=== PATIENT | female | born 1965 | race Caucasian/White ===

== ENCOUNTER 2017-05-28 16:02 | Emergency (ER) | payer OTHER ==
[2017-05-28 16:52] LABS: Bilirubin Small (Negative); Blood, Urine Negative (Negative); Glucose, Urine (Dipstick) Negative (Negative); Ketone, Urine Negative (Negative); Nitrite Negative (Negative); Protein, Urine (Dipstick) Negative (Neg-Trace)
[2017-05-28 16:53] LABS: Bacteria/HPF None Seen HPF (None Seen); Hyaline Casts/LPF 4-6 HYALINE CAST LPF (0-3 Hyaline); RBC/HPF 0-3 HPF (0-3); Squamous Epithelial 0-3 HPF (0-3); WBC/HPF 0-3 HPF (0-3)
[2017-05-28 16:56] LABS: Hematocrit 43.4 % (36.0-47.0); Mean Platelet Volume 10.6 fL (7.4-10.4); Red Blood Cell (RBC) Count 5.48 mill/uL (4.20-5.40)
[2017-05-28 16:58] LABS: CK (CPK) 30 U/L (29-168); Salicylate Less than 8.0 mg/dL (15.0-30.0)
[2017-05-28 16:59] LABS: ALT (SGPT) 9 U/L (8-55); AST (SGOT) 16 U/L (5-34); Alkaline Phosphatase 63 U/L (40-150); Anion Gap 15 mmol/L (10-20); BUN (Urea Nitrogen) 17 mg/dL (9.8-20.1); Bilirubin, Total 0.9 mg/dL (0.2-1.2); Calc. Creatinine Clearance 0 mL/min (70-130); Calcium 9.6 mg/dL (7.8-10.44); Carbon Dioxide 33 mmol/L (22-29); Chloride 92 mmol/L (98-107); Estimated GFR-MDRD 71; Globulin 3.3 g/dL (2.4-3.5)
[2017-05-28 17:01] LABS: Amphetamine Not Detected (NotDetected); Methadone Not Detected (NotDetected); Methamphetamine Not Detected (NotDetected)
[2017-05-28 17:13] LABS: #Basophils 0.1 thou/uL (0.0-0.2); #Eosinphils 0.2 thou/uL (0.0-0.7); #Lymphocytes 3.7 thou/uL (1.20-3.40); #Monocytes 0.6 thou/uL (0.11-0.59); #Neutrophils 4.4 thou/uL (1.40-6.50); %Basophils 1.3 % (0.0-1.0); %Eosinophils 2.7 % (0.0-10.0); %Lymphocytes 40.5 % (21.0-51.0); %Monocytes 6.6 % (0.0-10.0); Anisocytosis SLIGHT = 6-15 cells (100X) (0-5/hpf); Hypochromia SLIGHT = 6-15 cells (100X) (0-5/hpf)
[2017-05-28] MEDS ORDERED: diphenhydrAMINE HCl 50 MG/ML 1 ML VIAL ONE (18:07)
[2017-05-28 21:48] LABS: ALT (SGPT) 8 U/L (8-55); AST (SGOT) 11 U/L (5-34); Alkaline Phosphatase 53 U/L (40-150); Anion Gap 11 mmol/L (10-20); BUN (Urea Nitrogen) 16 mg/dL (9.8-20.1); Bilirubin, Total 0.6 mg/dL (0.2-1.2); Calc. Creatinine Clearance 0 mL/min (70-130); Calcium 7.8 mg/dL (7.8-10.44); Carbon Dioxide 30 mmol/L (22-29); Chloride 99 mmol/L (98-107); Estimated GFR-MDRD 70; Globulin 2.7 g/dL (2.4-3.5); Protein, Total 5.9 g/dL (6.0-8.3)
[2017-05-29] MEDS ORDERED: Bumetanide 1 MG TAB PO SCH (07:30)
[2017-05-29] MEDS ORDERED: predniSONE 20 MG TAB PO SCH (08:00)
[2017-05-29] MEDS ORDERED: Metolazone 2.5 MG TAB PO SCH (08:30)
[2017-05-29] MEDS ORDERED: Gabapentin 300 MG CAP PO SCH (09:00)
[2017-05-29] MEDS ORDERED: Simvastatin 5 MG TAB PO SCH (21:00)
[2017-05-29] MEDS ORDERED: Acetaminophen 325 MG TAB ONE (21:25)
[2017-05-30] MEDS ORDERED: Acetaminophen 500 MG TAB ONE (05:31)
[2017-05-30] MEDS ORDERED: Bumetanide 1 MG TAB PO SCH (18:30)
[2017-05-30] MEDS ORDERED: Pseudoephedrine HCl 30 MG TAB PO SCH (20:15)
[2017-05-30] MEDS ORDERED: Loratadine 10 MG TAB PO SCH (20:15)
[2017-05-31] MEDS ORDERED: Ibuprofen 200 MG TAB ONE (00:18)
[2017-05-31] MEDS ORDERED: Potassium Chloride 20 MEQ TAB ONE ×3 (01:06→12:46)
[2017-05-31] MEDS ORDERED: Dextrose 5% in Water 1,000 ML IV PRN (03:46)
[2017-05-31] MEDS ORDERED: Insulin Regular 300 UNITS/3 ML VIAL SC PRN (03:46)
[2017-05-31] MEDS ORDERED: Dextrose 50% Abboject 50 ML SYRINGE IVP PRN (03:46)
[2017-05-31 03:53] LABS: ALT (SGPT) 11 U/L (8-55); AST (SGOT) 18 U/L (5-34); Alkaline Phosphatase 62 U/L (40-150); BUN (Urea Nitrogen) 20 mg/dL (9.8-20.1); Bilirubin, Total 1.1 mg/dL (0.2-1.2); Calc. Creatinine Clearance 0 mL/min (70-130); Calcium 9.7 mg/dL (7.8-10.44); Estimated GFR-MDRD 67; Globulin 3.2 g/dL (2.4-3.5); Protein, Total 6.8 g/dL (6.0-8.3)
[2017-05-31 04:02] LABS: Anion Gap 18 mmol/L (10-20); Carbon Dioxide 37 mmol/L (22-29); Chloride 86 mmol/L (98-107)
[2017-05-31 04:17] LABS: Hematocrit 45.4 % (36.0-47.0); Mean Platelet Volume 10.8 fL (7.4-10.4); Red Blood Cell (RBC) Count 5.78 mill/uL (4.20-5.40); White Blood Cell (WBC) Count 10.6 thou/uL (4.8-10.8)
[2017-05-31 04:24] LABS: #Basophils 0.1 thou/uL (0.0-0.2); #Eosinphils 0.3 thou/uL (0.0-0.7); #Neutrophils 5.2 thou/uL (1.40-6.50); %Eosinophils 2.8 % (0.0-10.0); %Lymphocytes 38.2 % (21.0-51.0); %Monocytes 9.5 % (0.0-10.0); Anisocytosis SLIGHT = 6-15 cells (100X) (0-5/hpf); Hypochromia SLIGHT = 6-15 cells (100X) (0-5/hpf)
[2017-05-31] MEDS ORDERED: Bacitracin Zinc 1 Packet ONE (09:43)
[2017-05-31] MEDS ORDERED: Sulfameth/Trimethoprim DS 800-160mg TAB ONE ×2 (09:43→20:14)
[2017-05-31 11:54] LABS: ALT (SGPT) 12 U/L (8-55); AST (SGOT) 24 U/L (5-34); Alkaline Phosphatase 64 U/L (40-150); BUN (Urea Nitrogen) 24 mg/dL (9.8-20.1); Bilirubin, Total 1.1 mg/dL (0.2-1.2); Calc. Creatinine Clearance 0 mL/min (70-130); Estimated GFR-MDRD 46; Globulin 3.5 g/dL (2.4-3.5); Protein, Total 7.1 g/dL (6.0-8.3)
[2017-05-31 12:03] LABS: Anion Gap 21 mmol/L (10-20); Carbon Dioxide 37 mmol/L (22-29); Chloride 84 mmol/L (98-107)
[2017-05-31] MEDS ORDERED: Insulin Regular 300 UNITS/3 ML VIAL ONE ×2 (12:46→20:14)
[2017-05-31] MEDS ORDERED: Magnesium Sulfate 2 GM/100 ML BAG ONE (20:21)
[2017-06-01] MEDS ORDERED: Acetaminophen 500 MG TAB ONE (01:36)
[2017-06-01] MEDS ORDERED: Potassium Chloride 20 MEQ TAB ONE (02:34)
[2017-06-01] MEDS ORDERED: Ibuprofen 200 MG TAB ONE (04:02)
--- NOTE | 2017-06-04 13:17 | EKG ---
Test Reason : Blood Pressure : / mmHG Vent. Rate : 102 BPM Atrial Rate : 102 BPM P-R Int : 152 ms QRS Dur : 108 ms QT Int : 372 ms P-R-T Axes : 057 165 -24 degrees QTc Int : 484 ms Sinus tachycardia with occasional Premature ventricular complexes Right axis deviation Low voltage QRS Inferior infarct , age undetermined Cannot rule out Anteroseptal infarct , age undetermined Abnormal ECG Confirmed by DAYTON MCINTRYE D.O. ([id number]), editor producer FATOUMATA BENITEZ ([id number]) on 06/04/2017 1:16:41 PM Referred By: Confirmed By:DAYTON MCINTYRE D.O.
== END 2017-06-01 10:30 | disposition home or self-care (01) ==
LOC: ERS 16:02
DX: T40.2X2A Poisoning by other opioids, intentional self-harm, initial encounter (principal); D86.9 Sarcoidosis, unspecified; E11.9 Type 2 diabetes mellitus without complications; F43.9 Reaction to severe stress, unspecified; F32.9 Major depressive disorder, single episode, unspecified; F17.210 Nicotine dependence, cigarettes, uncomplicated; J44.9 Chronic obstructive pulmonary disease, unspecified; I10 Essential (primary) hypertension; Z79.84 Long term (current) use of oral hypoglycemic drugs; Z79.52 Long term (current) use of systemic steroids; Z79.899 Other long term (current) drug therapy
CPT/HCPCS: 36415; 36416; 51701; 80053; 80306; 80307; 81003; 81015; 82550; 83735; 84443; 85025; 93005; 94760; 96360; 96361; 96365; 96372; 96375; J1200; J1815; J3475; J7506

== ENCOUNTER 2017-07-25 14:29 | Outpatient (CLI) | payer OTHER ==
[2017-07-25 16:03] LABS: Hematocrit 38.4 % (36.0-47.0); Mean Platelet Volume 6.8 fL (7.4-10.4); Red Blood Cell (RBC) Count 5.12 mill/uL (4.20-5.40)
[2017-07-25 16:20] LABS: ALT (SGPT) Less than 7 U/L (8-55); AST (SGOT) 14 U/L (5-34); Alkaline Phosphatase 69 U/L (40-150); Anion Gap 16 mmol/L (10-20); BUN (Urea Nitrogen) 16 mg/dL (9.8-20.1); Bilirubin, Total 2.2 mg/dL (0.2-1.2); Calc. Creatinine Clearance 0 mL/min (70-130); Calcium 9.4 mg/dL (7.8-10.44); Carbon Dioxide 34 mmol/L (22-29); Chloride 92 mmol/L (98-107); Estimated GFR-MDRD 65; Globulin 3.2 g/dL (2.4-3.5); Protein, Total 6.8 g/dL (6.0-8.3)
== END 2017-07-25 14:30 | disposition home or self-care (01) ==
LOC: LABBT 14:29
PROVIDERS: ATTEND Internal Medicine Cardiovascular Disease
DX: Z01.818 Encounter for other preprocedural examination (principal); I70.25 Atherosclerosis of native arteries of other extremities with ulceration
CPT/HCPCS: 80053; 85027; 85610; 85730; 93005; 93010

== ENCOUNTER 2017-07-26 06:32 | Day surgery (SDC) | payer OTHER ==
[2017-07-25 14:59] VITALS: BMI 30.9
[~2017-07-26 06:32] MED LIST: Iopamidol 370 76% 100 ML VIAL ONE
[2017-07-26] MEDS ORDERED: Heparin 1000 UNIT/NS 500ML(OR) 500 ML ONE ×2 (06:41→07:03)
--- NOTE | 2017-07-26 08:20 | HP ---
CHIEF COMPLAINT: Bilateral leg pain. HISTORY OF PRESENT ILLNESS: Ms. Valdovinos is an unfortunate 52-year-old woman who continues to smoke. She has had intervention to the bilateral iliac arteries by Dr. Yousif Aponte. She continues to hav e pain noted bilaterally at rest. She has been treated medically and had been counseled on several o ccasions to not smoke. She unfortunately continues to smoke. She now called the office stating she has continued to have symptoms. She was last seen in 05/20/2017. Please see note dated 05/20/2017 for full previous history. PHYSICAL EXAMINATION: VITAL SIGNS: Blood pressure 100/62, pulse 71, temperature afebrile. GENERAL: Patient is a pleasant female who is in no acute distress. The patient appears older than he r stated age. NEUROLOGIC: The patient is alert and oriented times 3 with no focal neurologic deficits. HEENT: Sclerae without icterus. Mouth has moist mucous membranes with normal pallor. NECK: No JVD. Carotid upstroke brisk. No bruits bilaterally. LUNGS: Clear to auscultation with unlabored respirations. BACK: No scoliosis or kyphosis. CARDIAC: Regular rate and rhythm with normal S1 and S2. No S3 or S4 noted. No significant rubs, mur murs, thrills, or gallops noted throughout the precordium. PMI is not displaced. There is no parast ernal heave. ABDOMEN: Soft, nontender, nondistended. No peritoneal signs present. No hepatosplenomegaly. No abn ormal striae. EXTREMITIES: Decreased pulses noted in the femoral region bilaterally. SKIN: No gross abnormalities. IMPRESSION: 1. Severe peripheral vascular disease. 2. Claudication. 3. Tobacco abuse. RECOMMENDATIONS: I discussed the case in full detail with Ms. Valdovinos. The risks included, but are not limited to , stroke, OR, need for emergency surgery, loss of limb, bleeding and infection as a reaction to medication. I also counseled her on the need to not smoke. I did discuss with Dr. Ivonne Aponte. He states at her last intervention her vessels appeared small. Based on her arterial a ngio arterial duplex she likely has occlusion of the stents bilaterally. Further recommendations pen ding the above.
--- NOTE | 2017-07-26 09:40 | OP ---
PREPROCEDURE DIAGNOSIS: Severe claudication. POSTPROCEDURE DIAGNOSIS: Severe peripheral vascular disease. PROCEDURES: 1. Aortogram. 2. Unilateral aortofemoral runoff. COMPLICATIONS: None. ESTIMATED BLOOD LOSS: Less than 10 mL. PROCEDURE IN DETAIL: The patient was draped and prepped in sterile fashion. Accessing the right fem oral artery under ultrasound guidance. The bifurcation was not well visualized. There was significa nt calcium present. Access was obtained in the SFA. Contra catheter was used. I did not cross into contralateral segment due to stents noted at the distal aorta bilaterally. FINDINGS: A small aneurysm present in the distal aorta. Right lower extremity - there appears to be a 50% to 60% stenosis of the previously stented region. There is no significant gradient from the aorta to the 5-Turkmen sheath. There was 100% occlusion of the SFA in the mere ostial portion to the mid SFA. There is reconstitution noted in the eyi-er-ahtrd l SFA. There is 90% stenosis with heavy calcification noted just above the articulation of the knee within the popliteal artery. There is 2-vessel runoff to the foot. Left lower extremity - there is 50% to 60% stenosis of the left common iliac artery. Again, gradient could not be performed. The common femoral artery appeared patent. The SFA appears patent. The po pliteal artery in the proximal region is 100% occluded in a short region. There is 2-vessel runoff t o the foot via the anterior tibial artery and peroneal artery. Options were limited. Did contemplate access in the popliteal artery in a staged fashion. Unfortuna tely, the transition for access appears to be quite difficult. May consider a turndown for surgery. Access in the anterior tibial artery was also contemplated, but the anterior tibial artery vessels a ppear very small and cannot place a 5-Turkmen sheath given the size of the vessel.
[2017-07-26] MEDS ORDERED: Morphine 4 MG/ML VIAL ONE (10:41)
== END 2017-07-26 14:25 | disposition home or self-care (01) ==
LOC: CCL 06:32
PROVIDERS: ATTEND Internal Medicine Cardiovascular Disease
PROC: B41D1ZZ Fluoroscopy of Aorta and Bilateral Lower Extremity Arteries using Low Osmolar Contrast (ICD-10-PCS; principal; 2017-07-26)
DX: I70.213 Atherosclerosis of native arteries of extremities with intermittent claudication, bilateral legs (principal); I71.9 Aortic aneurysm of unspecified site, without rupture; F17.200 Nicotine dependence, unspecified, uncomplicated; I11.0 Hypertensive heart disease with heart failure; I50.9 Heart failure, unspecified; I27.81 Cor pulmonale (chronic); J44.9 Chronic obstructive pulmonary disease, unspecified; E11.9 Type 2 diabetes mellitus without complications; E78.5 Hyperlipidemia, unspecified; G47.33 Obstructive sleep apnea (adult) (pediatric); Z99.89 Dependence on other enabling machines and devices; Z99.81 Dependence on supplemental oxygen; Z79.84 Long term (current) use of oral hypoglycemic drugs; Z79.82 Long term (current) use of aspirin; Z79.891 Long term (current) use of opiate analgesic; Z79.899 Other long term (current) drug therapy; Z88.0 Allergy status to penicillin; Z88.8 Allergy status to other drugs, medicaments and biological substances; Z91.048 Other nonmedicinal substance allergy status; Z90.49 Acquired absence of other specified parts of digestive tract; Z90.89 Acquired absence of other organs; Z90.721 Acquired absence of ovaries, unilateral
CPT/HCPCS: 36245; 75630; 75716; 76942; 80053; 85027; 85610; 85730; 93005; 93010; 96374; C1769; J1644; J2270

== ENCOUNTER 2017-08-01 08:38 | Inpatient (IN) | payer OTHER ==
--- NOTE | 2017-08-01 08:56 | RAD ---
AP VIEW OF CHEST: Date: 08/01/17 HISTORY: Cough. FINDINGS: Comparison made to previous exam from 12/25/16. AP view of chest demonstrates cardiomegaly. Pulmonary vascular congestion is seen. There are diffuse interstitial markings throughout the lungs, unchanged since the previous exam, comp atible with interstitial fibrotic changes. IMPRESSION: Cardiomegaly, pulmonary vascular congestion, and increased interstitial markings. Findings are stable and unchanged. Diffuse interstitial fibrotic changes cannot be excluded. POS: [facility]
[2017-08-01 09:01] LABS: #Basophils 0.1 thou/uL (0.0-0.2); #Eosinphils 0.2 thou/uL (0.0-0.7); #Lymphocytes 2.5 thou/uL (1.20-3.40); #Monocytes 0.6 thou/uL (0.11-0.59); #Neutrophils 4.2 thou/uL (1.40-6.50); %Basophils 1.5 % (0.0-1.0); %Eosinophils 2.5 % (0.0-10.0); %Lymphocytes 33.3 % (21.0-51.0); %Monocytes 7.4 % (0.0-10.0); Hematocrit 36.2 % (36.0-47.0); Mean Platelet Volume 10.7 fL (7.4-10.4); Red Blood Cell (RBC) Count 4.79 mill/uL (4.20-5.40); White Blood Cell (WBC) Count 7.6 thou/uL (4.8-10.8)
[2017-08-01 09:17] LABS: ALT (SGPT) Less than 7 U/L (8-55); AST (SGOT) 17 U/L (5-34); Alkaline Phosphatase 78 U/L (40-150); Anion Gap 14 mmol/L (10-20); BUN (Urea Nitrogen) 25 mg/dL (9.8-20.1); Bilirubin, Total 1.2 mg/dL (0.2-1.2); CK (CPK) 24 U/L (29-168); Calc. Creatinine Clearance 0 mL/min (70-130); Calcium 9.3 mg/dL (7.8-10.44); Carbon Dioxide 31 mmol/L (22-29); Chloride 93 mmol/L (98-107); Estimated GFR-MDRD 71; Globulin 3.7 g/dL (2.4-3.5); Protein, Total 7.2 g/dL (6.0-8.3)
[2017-08-01 09:21] LABS: Troponin I Less than 0.010 ng/mL (< 0.028)
[2017-08-01 09:45] LABS: PTT 33.5 SEC (22.9-36.1)
[2017-08-01] MEDS ORDERED: Furosemide 40 MG/4 ML VIAL ONE (09:52)
[2017-08-01] MEDS ORDERED: Clindamycin/D5W 900 mg/50 ml Premix Bag ONE (09:52)
[2017-08-01 12:56] LABS: Troponin I Less than 0.010 ng/mL (< 0.028)
--- NOTE | 2017-08-01 13:55 | HP-2 ---
CODE STATUS: FULL. PRIMARY CARE PHYSICIAN: [facility], Dr. Chen. ATTENDING PHYSICIAN: Dm Louise M.D. RESIDENT PHYSICIAN: Doug Spears M.D. CHIEF COMPLAINT: Shortness of breath. HISTORY OF PRESENT ILLNESS: This is a 52-year-old female who presents with a 1 week history of increasing shortness of breath and swelling. She states she had a peripheral vascular procedure by Dr. Dye last week and since then, she has gained 30 pounds. She also noticed she was having some trouble ambulating, having to sleep more upright. She notes being more short of breath. [facility] and the nurse practitioner there had told her that she could stop taking one of her diuretics on a daily basis. She then called to the [facility] and told her about the weight gain and they told her to come to the ED. Apparently, her who usually does her medications for her at home had went to long term for a few days and had noticed that his was noncompliant with medications causing some of this weight gain. She has no other complaints at this time. In the ER, she was given Lasix. PAST MEDICAL HISTORY: Significant for diabetes mellitus type 2, CHF, preserved ejection fraction, hypertension, fibromyalgia, chronic bronchitis, sarcoidosis, depression, COPD, and anemia. PAST SURGICAL HISTORY: Tonsillectomy, appendectomy, cholecystectomy, bilateral oophorectomy, left knee surgery, lung biopsy, carpal tunnel releases, and had bilateral iliac stenting in 12/2016. ALLERGIES: To ADHESIVES, LYRICA, and PENICILLINS. MEDICATIONS: 1. Bumetanide 2 mg b.i.d. 2. Pravachol 20 mg. 3. Metformin 1000 mg. 4. Albuterol sulfate inhaler. 5. Spiriva inhaler 18 mcg. 6. Alendronate sodium 70 mg once a week. 7. Pantoprazole sodium 40 mg. 8. Klor-Con M20 20 mEq. 9. Nystatin 100,000 unit per mL mouth/throat suspension 1 mL in each cheek 4 times a daily. 10. ProAir. 11. Sudafed 12-hour 120 mg 2 tabs every 4-6 hours. 12. Victoza 18 mg per 3 mL, 1.2 mg per day. 13. Lisinopril 2.5 mg. 14. Magnesium oxide 400 mg. 15. Hydrocodone and acetaminophen 10/325 mg. 16. Prednisone 10 mg. 17. Metolazone 2.5 mg. 18. Aspirin 81 mg. 19. Gabapentin 300 mg t.i.d. 20. Cymbalta 30 mg b.i.d. 21. Tizanidine 2 mg 1 in the morning and 2 at night. 22. Ferrous gluconate 240 mg. FAMILY HISTORY: Heart disease in her mom. SOCIAL HISTORY: She currently smokes 1.5 packs per day. She has a 50-pack- year smoking history. She denies any alcohol or drug use. Her occupation, she is on disability. She is and does not have any children. REVIEW OF SYSTEMS: General: She denies any fever or chills. She does admit to a 30-pound weight gain in 1 week and some fatigue. Eyes: She does admit to some redness around her conjunctiva that she was checked out with by an apple press operator last week and it is from straining. ENT: Does admit to nasal congestion, rhinorrhea with the season change and a little bit of a head cold. Denies any sore throat. Respiratory: Does admit to a cough. No congestion, increasing shortness of breath and exercise intolerance. Cardiovascular: Denies chest pain, palpitations. She does admit to edema and orthopnea. Gastrointestinal: She does admit to nausea, vomiting, constipation. She denies diarrhea, abdominal pain, or GI bleeding. Genitourinary: Denies incontinence or dysuria. She does admit to straining and urinary retention. Skin: She does have new rashes and lesions that are chronic for her. Musculoskeletal: She does admit to pain as well as arthritis especially in her shoulders. Neurologic: She admits to weakness. She denies numbness, syncope or seizures. Psychiatric: She admits to anxiety and depression problems. PHYSICAL EXAMINATION: VITAL SIGNS: Blood pressure 113/59, pulse was 103, respiration 16, temperature max 98.7, pulse ox 94% on 4 liters. Current weight is 89 kilos. GENERAL: Alert and oriented x4. Appropriately interactive. HEENT: Eye, PERRLA with some hemorrhages in her sclerae. ENT: Tympanic membranes pearly luna without erythema. Nasal mucosa and oropharynx within normal limits. She does have dentures in place. NECK: Supple, without lymphadenopathy. She does have JVD present. CARDIAC: Regular rate and rhythm. No murmurs. Radial pulses present. Pedal pulses were very diminished bilaterally. RESPIRATORY: Normal effort, no retractions. Crackles and diminished lung sounds at the bases. SKIN: Warm and dry. ABDOMEN: Soft. She was tender to palpation with an area of blanching erythema on her abdomen. Bowel sounds are present x4. No mass. She did have distention of her abdomen. EXTREMITIES: No clubbing, cyanosis. She does have pitting edema up to level of her knees. MUSCULOSKELETAL: Structure, tone was within normal limits. Muscle strength is 4/5 and she had full range of motion. NEUROLOGIC: No focal neurologic deficits. Sensation within normal limits. Cranial nerves II-XII grossly intact. GCS was 15. PSYCHIATRIC: Appropriate. LABORATORY DATA: White blood cell count 7.6, platelet count 245, hemoglobin 11.0, hematocrit 36.2, MCV 75.5. Sodium 134, potassium 4.2, chloride 93, bicarbonate 31, BUN 25, creatinine 0.89, glucose 157, calcium 9.3, total protein 7.2, albumin 3.5, total bilirubin is 1.2, AST was 17, ALT was less than 7, alkaline phosphatase 78, lactate was 3.0, PTT 33.5. PT was 15.0, INR is 1.2. CK was 24, CK-MB is 1.3. Troponin I was less than 0.01. Lipase was 51. BNP was 738.2. Her EKG showed sinus tachycardia, inferior infarct, anterior septal infarct, age indeterminate, with low voltage, stable from previous. Chest x-ray showed cardiomegaly, pulmonary vascular congestion, increased interstitial markings that was also stable from previous. ASSESSMENT AND PLAN: We have a 52-year-old female that presents with: 1. Acute congestive heart failure exacerbation. Her last echo in 03/2017 showing ejection fraction of 55%. We will put her on an 1800 mL fluid restriction. Will give her IV Lasix and metolazone to diurese her. We will put her on strict I's and O's and daily weights to monitor fluid status as well. So, we will put a Moore and fall precautions and to minimize any complications. 2. Chronic obstructive pulmonary disease. We will continue her home medications, give her oxygen supplementation as needed and DuoNebs. 3. Peripheral vascular disease. She did have a recent angiogram that showed patent stenting from previously. We will continue her home medications and manage her as needed from there. 4. Diabetes mellitus type 2. We are holding her metformin at this time. We will start her on the insulin sliding scale and give her glucose checks. 5. Hypertension. We will continue her home medications. 6. Tobacco abuse. She was counseled to quit. We offered nicotine patch if needed. 7. Hyperlipidemia. We will continue her statin. 8. Chronic pain. We will continue her home medications. 9. Obstructive sleep apnea. We will continue her CPAP at night. 10. Lactic acidosis. We are repeating the lactate and will follow that from there. 11. Iron deficiency anemia, it is stable from her previous admission. DISPOSITION AND LENGTH OF HOSPITAL STAY: Will be inpatient 2 midnights. Symptomatic medications will be provided. History and physical exam as well as management has been discussed with Dr. Louise. Patient seen in the ED with Dr. Spears. I agree with rodriguez portions of his H&P above. Long history of multiple medical issues including HFPEF with EF of 55% in March. She has been non-compliant with meds, diet, water restriction of late and gained 30 pounds. She states that HF clinic told her she could stop regular Metolozone. Her partner went to long term and he states she doesn't take meds when he is away. As noted above, we will diurese her, restart all previous meds. She does have an iron defiency anemia. We need to make sure she is up to date on colonoscopy. DONNA Louise MD [facility]
[2017-08-01 16:30] LABS: Troponin I Less than 0.010 ng/mL (< 0.028)
[2017-08-01] MEDS ORDERED: Acetaminophen 325 MG TAB PO PRN (16:40)
[2017-08-01] MEDS ORDERED: HumaLOG 300 UNITS/3 ML VIAL SC PRN (16:40)
[2017-08-01] MEDS ORDERED: Dextrose 5% in Water 1,000 ML IV PRN (16:40)
[2017-08-01] MEDS ORDERED: Dextrose 50% Abboject 50 ML SYRINGE SLOW IVP PRN (16:40)
[2017-08-01] MEDS ORDERED: Ondansetron ODT 4 MG TAB PO PRN (16:40)
[2017-08-01] MEDS ORDERED: PROVENTIL INHALER 6.7 G (200 INHALATIONS) INH PRN (16:56)
[2017-08-01] MEDS ORDERED: Furosemide 40 MG/4 ML VIAL SLOW IVP SCH (17:00)
[2017-08-01] MEDS ORDERED: Enoxaparin Sodium 40 MG/0.4 ML SYRINGE SC SCH (17:00)
[2017-08-01] MEDS: HYDROcodone/Acetaminophen 10/325 mg Tablet PO PRN ×2 (18:01→23:34)
[2017-08-01] MEDS: Albuterol Sulfate 2.5 mg/3 ml Neb NEB SCH (19:17)
[2017-08-01] MEDS: Ipratropium Bromide 2.5 ml Neb NEB SCH ×2 (19:20→23:35)
[2017-08-01] MEDS: DULoxetine 30 MG CAP PO SCH (20:40)
[2017-08-01] MEDS: Simvastatin 5 MG TAB PO SCH (20:40)
[2017-08-01] MEDS: tiZANidine HCl 4 MG TAB PO SCH (20:41)
[2017-08-01] MEDS: Gabapentin 300 MG CAP PO SCH (20:42)
[2017-08-01] MEDS: Famotidine 20 MG TAB PO SCH (20:42)
[2017-08-02 05:06] LABS: #Basophils 0.1 thou/uL (0.0-0.2); #Eosinphils 0.2 thou/uL (0.0-0.7); #Lymphocytes 2.7 thou/uL (1.20-3.40); #Monocytes 0.7 thou/uL (0.11-0.59); %Basophils 1.1 % (0.0-1.0); %Eosinophils 2.9 % (0.0-10.0); %Monocytes 8.9 % (0.0-10.0); Hematocrit 35.7 % (36.0-47.0); Mean Platelet Volume 11.1 fL (7.4-10.4); Red Blood Cell (RBC) Count 4.77 mill/uL (4.20-5.40); White Blood Cell (WBC) Count 7.7 thou/uL (4.8-10.8)
[2017-08-02 05:26] VITALS: BMI 34.2
[2017-08-02 05:33] LABS: Anion Gap 13 mmol/L (10-20); BUN (Urea Nitrogen) 25 mg/dL (9.8-20.1); Calc. Creatinine Clearance 116 mL/min (70-130); Calcium 9.3 mg/dL (7.8-10.44); Carbon Dioxide 31 mmol/L (22-29); Chloride 95 mmol/L (98-107); Estimated GFR-MDRD 75
[2017-08-02] MEDS: HYDROcodone/Acetaminophen 10/325 mg Tablet PO PRN ×3 (05:44→21:06)
[2017-08-02] MEDS ORDERED: Furosemide 40 MG/4 ML VIAL SLOW IVP SCH (06:00)
--- NOTE | 2017-08-02 06:09 | PDOC.FM ---
- Subjective Subjective: Patient has had a good night. Her breathing is improved. She does complain of the constant urge to pee with the bagley catheter in place. She denies any pain. She states her edema and her abdominal distention is improved. She has no other complaints at this time. - Objective Vital Signs & Weight: Vital Signs (12 hours) Temp Pulse Resp BP Pulse Ox 08/02/17 03:55 98.6 F 108 H 20 109/58 L 93 L 08/02/17 00:37 89 L 08/02/17 00:00 97.9 F 104 H 20 100/55 L 90 L 08/01/17 23:35 102 H 20 89 L 08/01/17 20:10 98.0 F 103 H 20 92 L 08/01/17 19:17 105 H 20 90 L Weight Weight 90.401 kg I&O: 07/31/17 08/01/17 08/02/17 06:59 06:59 06:59 Intake Total 778 Output Total 925 Balance -147 Result Diagrams: 08/02/17 04:33 08/02/17 04:33 <Doug Spears - Last Filed: 08/02/17 07:47> - Objective Vital Signs & Weight: Vital Signs (12 hours) Temp Pulse Resp BP BP Pulse Ox 08/02/17 08:44 95 94/52 L 08/02/17 08:41 97.7 F 95 16 94/52 L 93 L 08/02/17 07:07 105 H 24 H 86 L 08/02/17 07:05 105 H 24 H 86 L 08/02/17 03:55 98.6 F 108 H 20 109/58 L 93 L 08/02/17 00:37 89 L 08/02/17 00:00 97.9 F 104 H 20 100/55 L 90 L 08/01/17 23:35 102 H 20 89 L Weight Weight 90.401 kg I&O: 08/01/17 08/02/17 08/03/17 06:59 06:59 06:59 Intake Total 778 Output Total 925 Balance -147 Result Diagrams: 08/02/17 04:33 08/02/17 04:33 <Georges Little - Last Filed: 08/02/17 10:49> - Objective Vital Signs & Weight: Vital Signs (12 hours) Temp Pulse Resp BP BP Pulse Ox 08/02/17 08:44 95 94/52 L 08/02/17 08:41 97.7 F 95 16 94/52 L 93 L 08/02/17 07:07 105 H 24 H 86 L 08/02/17 07:05 105 H 24 H 86 L 08/02/17 03:55 98.6 F 108 H 20 109/58 L 93 L 08/02/17 00:37 89 L 08/02/17 00:00 97.9 F 104 H 20 100/55 L 90 L 08/01/17 23:35 102 H 20 89 L Weight Weight 199 lb 4.8 oz I&O: 08/01/17 08/02/17 08/03/17 06:59 06:59 06:59 Intake Total 778 Output Total 925 Balance -147 Result Diagrams: 08/02/17 04:33 08/02/17 04:33 <Dm Louise - Last Filed: 08/02/17 10:57> Phys Exam - Physical Examination HEENT: moist MMs Neck: no nodes, supple JVD present Respiratory: no wheezing Diminished breath sounds. Cardiovascular: RRR, no significant murmur Gastrointestinal: soft, non-tender, no distention, positive bowel sounds Musculoskeletal: edema present Erythema and Edema improved from yesterday Neurological: non-focal, moves all 4 limbs Psychiatric: normal affect, A&O x 3 <Doug Spears - Last Filed: 08/02/17 07:47> Dx/Plan (1) CHF exacerbation Code(s): I50.9 - HEART FAILURE, UNSPECIFIED Status: Acute Plan: -On diuretic therapy. -Once she is feeling better will initiate her home medications. -Last ECHO in March 2017, will not repeat this at this time. -Monitor fluid status. (2) COPD (chronic obstructive pulmonary disease) Status: Acute Plan: -Duonebs as needed -Continue home medications (3) Diabetes Code(s): E11.9 - TYPE 2 DIABETES MELLITUS WITHOUT COMPLICATIONS Status: Acute Plan: -Held home Metformin -SSI and accuchecks (4) Tobacco abuse Code(s): Z72.0 - TOBACCO USE Status: Acute Plan: -Counseled to quit -Will have nicotine patch available. (5) Chronic lung disease Code(s): J98.4 - OTHER DISORDERS OF LUNG Status: Chronic Plan: -Continue home medications -Will need outpatient follow up (6) Chronic pain syndrome Code(s): G89.4 - CHRONIC PAIN SYNDROME Status: Chronic Plan: -Under good control -Continue home meds (7) Depression Code(s): F32.9 - MAJOR DEPRESSIVE DISORDER, SINGLE EPISODE, UNSPECIFIED Status : Chronic Plan: -Stable -Continue home medications. (8) Hyperlipidemia Code(s): E78.5 - HYPERLIPIDEMIA, UNSPECIFIED Status: Chronic Plan: -Continue home meds (9) Hypertension Code(s): I10 - ESSENTIAL (PRIMARY) HYPERTENSION Status: Chronic Plan: -Continue home meds (10) PVD (peripheral vascular disease) with claudication Code(s): I73.9 - PERIPHERAL VASCULAR DISEASE, UNSPECIFIED Status: Suspected Plan: -s/p stenting in December 2016 and peripheral angiogram 1 week ago -Smoking cessation encouraged -Recommend outpatient follow up for this. - Plan Plan: Will continue to diurese and re-evaluate. <Doug Spears - Last Filed: 08/02/17 07:47> - Plan Plan: Upper Level Note: I saw the patient with Dr. Spears today and personally examined the patient Patient reports her breathing is significantly better today. Improved with diuresis Vitals: BP 109/58 O2 sat 86% on 3L. HR 105 RR 24 Exam: Patient alert and oriented. Breathing unlabored - diminished breath sounds but no wheezing, rales, or rhonchi. Heart RRR, no m/r/g. A/P: 1) CHF with exacerbation - Patient clinically improved with diuresis. Will restart home diuretics, which had previously been stopped, and monitor for continued improvement. Plan for dispo when returned to baseline. I agree wtih Dr. Spears's exam, assessment, and plan. Please see his note for full details. Georges Little, DO PGY-3 <Georges Little - Last Filed: 08/02/17 10:49> Attending Addendum - Attending Addendum I personally evaluated the patient and discussed the management with Dr. Spears and [place] I agree with the History, Examination, Assessment and Plan documented above with any addition or exceptions noted below. She is diuresing well and is breathing much better. We are transitioning her to home regimen. She is not on carvedilol or sprinoloctone for some reason. It might be helpful to transition her as an outpatient to spironolactone, instead of metolozone. She is much better and may be able to go home tomorrow. <Dm Louise - Last Filed: 08/02/17 10:57>
[2017-08-02] MEDS: Albuterol Sulfate 2.5 mg/3 ml Neb NEB SCH ×3 (07:05→18:24)
[2017-08-02] MEDS: Ipratropium Bromide 2.5 ml Neb NEB SCH ×3 (07:07→18:26)
[2017-08-02] MEDS: Potassium Chloride 20 MEQ TAB PO SCH ×2 (08:43→16:23)
[2017-08-02] MEDS: DULoxetine 30 MG CAP PO SCH ×2 (08:44→21:08)
[2017-08-02] MEDS: Gabapentin 300 MG CAP PO SCH ×2 (08:44→21:08)
[2017-08-02] MEDS: Lisinopril 2.5 MG TAB PO SCH (08:44)
[2017-08-02] MEDS: Famotidine 20 MG TAB PO SCH ×2 (08:44→21:08)
[2017-08-02] MEDS: Aspirin 81 mg Enteric Coated Tablet PO SCH (08:44)
[2017-08-02] MEDS: Magnesium Oxide 400 MG TAB PO SCH (08:45)
[2017-08-02] MEDS: Enoxaparin Sodium 40 MG/0.4 ML SYRINGE SC SCH (10:00)
[2017-08-02] MEDS: Bumetanide 1 MG TAB PO SCH (16:23)
[2017-08-02 19:44] LABS: Bilirubin Negative (Negative); Blood, Urine Large (Negative); Glucose, Urine (Dipstick) Negative (Negative); Ketone, Urine Negative (Negative); Nitrite Negative (Negative); Protein, Urine (Dipstick) Negative (Neg-Trace)
[2017-08-02 19:47] LABS: Bacteria/HPF None Seen HPF (None Seen); Hyaline Casts/LPF 0-3 HYALINE CAST LPF (0-3 Hyaline); RBC/HPF 21-50 HPF (0-3); Squamous Epithelial 0-3 HPF (0-3); WBC/HPF 0-3 HPF (0-3)
[2017-08-02] MEDS ORDERED: Non-Formulary Item 1 EACH (Bumetanide [Bumetanide] 2 MG) PO SCH (21:00)
[2017-08-02] MEDS: tiZANidine HCl 4 MG TAB PO SCH (21:07)
[2017-08-02] MEDS: Simvastatin 5 MG TAB PO SCH (21:08)
[2017-08-03] MEDS: Ipratropium Bromide 2.5 ml Neb NEB SCH ×4 (00:09→19:45)
[2017-08-03] MEDS: HYDROcodone/Acetaminophen 10/325 mg Tablet PO PRN ×4 (03:28→21:21)
--- NOTE | 2017-08-03 06:12 | PDOC.FM ---
- Subjective Subjective: Patient states she had a good night. She fears that she will go right back to smoking if she goes home. She states her breathing is better and her edema is better. She states that she is overall doing better. - Objective Vital Signs & Weight: Vital Signs (12 hours) Temp Pulse Resp BP Pulse Ox 08/03/17 04:14 96 123/61 08/03/17 04:00 98.0 F 94 16 91 L 08/03/17 02:17 90 L 08/02/17 23:45 99 20 90 L 08/02/17 19:30 96.4 F L 102 H 18 100/50 L 93 L 08/02/17 18:24 104 H 20 94 L Weight Admit Weight 90.174 kg Weight 91.671 kg I&O: 08/01/17 08/02/17 08/03/17 06:59 06:59 06:59 Intake Total 778 1200 Output Total 925 575 Balance -147 625 Result Diagrams: 08/03/17 05:22 08/03/17 05:22 <Doug Spears - Last Filed: 08/03/17 08:21> - Objective Vital Signs & Weight: Vital Signs (12 hours) Temp Pulse Resp BP BP Pulse Ox 08/03/17 09:07 107 H 100/50 L 08/03/17 08:05 107 H 20 08/03/17 04:14 96 123/61 08/03/17 04:00 98.0 F 94 16 91 L 08/03/17 02:17 90 L 08/02/17 23:45 99 20 90 L Weight Admit Weight 198 lb 12.8 oz Weight 202 lb 1.6 oz I&O: 08/02/17 08/03/17 08/04/17 06:59 06:59 06:59 Intake Total 778 1440 Output Total 925 1275 Balance -147 165 Result Diagrams: 08/03/17 05:22 08/03/17 05:22 <Dm Louise - Last Filed: 08/03/17 10:37> Phys Exam - Physical Examination HEENT: PERRLA, moist MMs Neck: no nodes, supple JVD present Diminished lung sounds bilaterally Cardiovascular: RRR, no significant murmur Gastrointestinal: soft, no distention, positive bowel sounds slight tenderness to palpation Musculoskeletal: edema present Improved from yesterday. Neurological: non-focal, moves all 4 limbs Psychiatric: normal affect, A&O x 3 <Doug Spears - Last Filed: 08/03/17 08:21> Dx/Plan (1) CHF exacerbation Code(s): I50.9 - HEART FAILURE, UNSPECIFIED Status: Acute Plan: -On diuretic therapy. -Initiated home medications -Last ECHO in March 2017, will not repeat this at this time. -Monitor fluid status. -Will await to see diuresis from Metolazone and Bumetanide -Walking program and PT evaluation -Await recs (2) COPD (chronic obstructive pulmonary disease) Status: Acute Plan: -Duonebs as needed -Continue home medications (3) Diabetes Code(s): E11.9 - TYPE 2 DIABETES MELLITUS WITHOUT COMPLICATIONS Status: Acute Plan: -Held home Metformin -SSI and accuchecks -Will restart home meds on discharge (4) Tobacco abuse Code(s): Z72.0 - TOBACCO USE Status: Acute Plan: -Counseled to quit -Will have nicotine patch available. (5) Chronic lung disease Code(s): J98.4 - OTHER DISORDERS OF LUNG Status: Chronic Plan: -Continue home medications -Will need outpatient follow up (6) Chronic pain syndrome Code(s): G89.4 - CHRONIC PAIN SYNDROME Status: Chronic Plan: -Under good control -Continue home meds (7) Depression Code(s): F32.9 - MAJOR DEPRESSIVE DISORDER, SINGLE EPISODE, UNSPECIFIED Status : Chronic Plan: -Stable -Continue home medications. (8) Hyperlipidemia Code(s): E78.5 - HYPERLIPIDEMIA, UNSPECIFIED Status: Chronic Plan: -Continue home meds (9) Hypertension Code(s): I10 - ESSENTIAL (PRIMARY) HYPERTENSION Status: Chronic Plan: -Continue home meds (10) PVD (peripheral vascular disease) with claudication Code(s): I73.9 - PERIPHERAL VASCULAR DISEASE, UNSPECIFIED Status: Suspected Plan: -s/p stenting in December 2016 and peripheral angiogram 1 week ago -Smoking cessation encouraged -Recommend outpatient follow up for this. (11) UTI (urinary tract infection) Status: Acute Plan: -Will start Macrobid -Urine culture pending - Plan Plan: Will increase patient's activity and see diuresis and discharge planning made from there. <Doug Spears - Last Filed: 08/03/17 08:21> Attending Addendum - Attending Addendum I personally evaluated the patient and discussed the management with Dr. Spears. I agree with the History, Examination, Assessment and Plan documented above with any addition or exceptions noted below. Diuresis has been slow. She is now back on Metolozone, but her I&O yesterday was positive. We will again use IV lasix today. I suggested that we talk with CHF clinic about the use of spironolactone. She also has sleep apnea and had significant O2 desaturation last night. She doesn't tolerate CPAP well. She asked to see Dr. Hatch. We will send a consult. <Dm Louise - Last Filed: 08/03/17 10:37>
[2017-08-03 06:28] LABS: Anion Gap 13 mmol/L (10-20); BUN (Urea Nitrogen) 22 mg/dL (9.8-20.1); Calc. Creatinine Clearance 112 mL/min (70-130); Calcium 9.3 mg/dL (7.8-10.44); Carbon Dioxide 29 mmol/L (22-29); Chloride 96 mmol/L (98-107); Estimated GFR-MDRD 71
[2017-08-03 06:34] LABS: #Basophils 0.1 thou/uL (0.0-0.2); #Eosinphils 0.2 thou/uL (0.0-0.7); #Lymphocytes 3.1 thou/uL (1.20-3.40); #Monocytes 0.8 thou/uL (0.11-0.59); #Neutrophils 3.3 thou/uL (1.40-6.50); %Basophils 0.9 % (0.0-1.0); %Eosinophils 2.5 % (0.0-10.0); %Lymphocytes 41.1 % (21.0-51.0); %Monocytes 10.7 % (0.0-10.0); Hematocrit 35.9 % (36.0-47.0); Mean Platelet Volume 11.4 fL (7.4-10.4); Red Blood Cell (RBC) Count 4.73 mill/uL (4.20-5.40); White Blood Cell (WBC) Count 7.4 thou/uL (4.8-10.8)
[2017-08-03] MEDS: Albuterol Sulfate 2.5 mg/3 ml Neb NEB SCH ×3 (08:05→19:46)
[2017-08-03] MEDS: Enoxaparin Sodium 40 MG/0.4 ML SYRINGE SC SCH (09:06)
[2017-08-03] MEDS: Nitrofurantoin Monohyd/M-Cryst 100 MG CAP PO SCH ×2 (09:07→21:20)
[2017-08-03] MEDS: Lisinopril 2.5 MG TAB PO SCH (09:07)
[2017-08-03] MEDS: Gabapentin 300 MG CAP PO SCH ×2 (09:07→21:20)
[2017-08-03] MEDS: Bumetanide 1 MG TAB PO SCH ×2 (09:07→17:28)
[2017-08-03] MEDS: DULoxetine 30 MG CAP PO SCH ×2 (09:08→21:20)
[2017-08-03] MEDS: Aspirin 81 mg Enteric Coated Tablet PO SCH (09:08)
[2017-08-03] MEDS: Potassium Chloride 20 MEQ TAB PO SCH ×2 (09:08→17:28)
[2017-08-03] MEDS: Magnesium Oxide 400 MG TAB PO SCH (09:08)
[2017-08-03] MEDS: Metolazone 2.5 MG TAB PO SCH (09:08)
[2017-08-03] MEDS: Famotidine 20 MG TAB PO SCH ×2 (09:09→21:21)
[2017-08-03] MEDS: Fluticasone Propionate Nasal Spray 16 gm Bottle NASAL SCH (10:03)
[2017-08-03] MEDS ORDERED: Furosemide 40 MG/4 ML VIAL SLOW IVP SCH (10:30)
--- NOTE | 2017-08-03 13:44 | PDOC.EVN ---
Event Note - Event Note Event Note: I reevaluated the patient at approximately 13:35. She was resting comfortably and reported she feels markedly better since receiving diuretics this morning. She reports her breathing seems improved and she thinks she will get better as she "gets more water off". Her work of breathing was normal and her logged O2 sat since receiving diuretics is better than the morning. Will continue to follow closely. Patient likely needs continued diuresis. Will consult pulmonology if respiratory status worsens or fails to improve appropriately with diuresis. <Georges Little - Last Filed: 08/03/17 13:41> Attending Addendum - Attending Addendum I personally evaluated the patient and discussed the management with Dr. Little I agree with the History, Examination, Assessment and Plan documented above. <Dm Louise - Last Filed: 08/04/17 10:24>
--- NOTE | 2017-08-03 13:59 | PQF ---
CLINICAL DOCUMENTATION IMPROVEMENT CLARIFICATION FORM: ICD-10 Updated PLEASE DO AN ADDENDUM TO THE PROGRESS NOTE WITH ANY DOCUMENTATION UPDATES OR ADDITIONS AND CARRY THROUGH TO DC SUMMARY. THANK YOU. DATE: 08/03/17 ATTN: Dr. Spears/ Attending Dr. Louise Please exercise your independent, professional judgment in responding to the clarification form. Clinical indicators are provided on the bottom of this form for your review Please check appropriate box(s): [ ] Acute Respiratory Failure: [ ] with Hypoxia [ ] with Hypercapnia [ ] Acute On Chronic Respiratory Failure: [ ] with Hypoxia [ ] with Hypercapnia [ ] Acute Respiratory Failure due to: (etiology) [ x ] Chronic Respiratory Failure only [ x ] with Hypoxia [ ] with Hypercapnia [ ] Other diagnosis [ ] Unable to determine In addition, please specify: Present on Admission (POA): [ x ] Yes [ ] No [ ] Unable to determine For continuity of documentation, please document condition throughout progress notes and discharge summary. Thank You. CLINICAL INDICATORS - SIGNS / SYMPTOMS / LABS ER RECORD: PE: 87% ON 2L O2 H&P: RESP 16, PULSE OX 94% ON 4 LITERS CHEST X-RAY SHOWED CARDIOMEGALY, PULMONARY VASCULAR CONGESTION, PN 12/: O2 SAT 86% ON 3L. HR 105 RR 24 RISKS: H&P: ACUTE CONGESTIVE HEART FAILURE EXACERBATION. COPD. DM 2. HTN SMOKED 1.5 PACKS PER DAY. TREATMENTS: CPOE 12/: RESP: O2 TO KEEP SATS 92% CPOE 12/4: IV LASIX 40 MG 0600, 1400. DC'd 08/02/17. Thank you, Lindsay (This form is maintained as a part of the permanent medical record) 2015 [employer]. All Rights Reserved Lindsay Fritz RN, BSN [email or web address] Office: [phone] [facility]
--- NOTE | 2017-08-03 14:16 | PQF ---
CLINICAL DOCUMENTATION IMPROVEMENT CLARIFICATION FORM: ICD-10 Updated PLEASE DO AN ADDENDUM TO THE PROGRESS NOTE WITH ANY DOCUMENTATION UPDATES OR ADDITIONS AND CARRY THROUGH TO DC SUMMARY. THANK YOU. DATE: 08/03/17 ATTN: Dr. Spears/ Attending Dr. Louise Please exercise your independent, professional judgment in responding to the clarification form. Clinical indicators are provided on the bottom of this form for your review Please check appropriate box(s): HEART FAILURE: A.TYPE: [ ] Systolic / HFrEF [ x ] Diastolic / HFpEF [ ] Combined Systolic / Diastolic [ ] Other diagnosis [ ] Unable to determine In addition, please specify: Present on Admission (POA): [ x ] Yes [ ] No [ ] Unable to determine For continuity of documentation, please document condition throughout progress notes and discharge summary. Thank You. CLINICAL INDICATORS - SIGNS / SYMPTOMS / LABS H&P: BNP 738.2 CHEST XRY: SHOWED CARDIOMEGALY, PULMONARY VASCULAR CONGESTION, INCREASED INTERSTITIAL MARKINGS THAT WAS ALSO STABLE FROM PREVIOUS ACUTE CONGESTIVE HEART FAILURE EXACERBATION. ECHO IN 03/2017 SHOWING EF OF 55% RISKS: H&P: HX OF DM 2, CHF. COPD. HTN. TREATMENTS: CPOE 08/01: RESP: O2 TO KEEP SATS 92% CPOE 12/: IV LASIX 40 MG 0600, 1400. DC'D 08/02/17. Thank you, Lindsay (This form is maintained as a part of the permanent medical record) 2015 [employer]. All Rights Reserved Lindsay Fritz RN, BSN [email or web address] Office: [phone] [facility]
[2017-08-03] MEDS: Oxymetazoline HCl 0.05% ( 15 ML ) NASAL PRN (14:27)
[2017-08-03] MEDS: Simvastatin 5 MG TAB PO SCH (21:20)
[2017-08-03] MEDS: tiZANidine HCl 4 MG TAB PO SCH (21:20)
[2017-08-04] MEDS: Ipratropium Bromide 2.5 ml Neb NEB SCH ×4 (01:27→19:20)
[2017-08-04] MEDS: Oxymetazoline HCl 0.05% ( 15 ML ) NASAL PRN (05:13)
[2017-08-04] MEDS: HYDROcodone/Acetaminophen 10/325 mg Tablet PO PRN ×4 (06:09→22:10)
[2017-08-04 06:13] LABS: #Basophils 0.1 thou/uL (0.0-0.2); #Eosinphils 0.2 thou/uL (0.0-0.7); #Lymphocytes 2.7 thou/uL (1.20-3.40); #Monocytes 0.8 thou/uL (0.11-0.59); #Neutrophils 3.1 thou/uL (1.40-6.50); %Basophils 1.2 % (0.0-1.0); %Eosinophils 3.3 % (0.0-10.0); %Lymphocytes 39.5 % (21.0-51.0); %Monocytes 11.2 % (0.0-10.0); Hematocrit 33.5 % (36.0-47.0); Mean Platelet Volume 10.8 fL (7.4-10.4); Red Blood Cell (RBC) Count 4.44 mill/uL (4.20-5.40); White Blood Cell (WBC) Count 6.8 thou/uL (4.8-10.8)
--- NOTE | 2017-08-04 06:16 | PDOC.FM ---
- Subjective Subjective: Patient states she had a good night. She notes that she urinated a lot. She also notes that her swelling is signficantly improved. She does note that she is still having trouble with her breathing. She denies chest pain, n/v/d. She does note some SOB that is long standing. She is feeling more steady on her feet now. - Objective Vital Signs & Weight: Vital Signs (12 hours) Temp Pulse Resp BP Pulse Ox 08/04/17 06:13 94 18 99/56 L 94 L 08/04/17 04:00 97.4 F L 97 16 85/52 L 88 L 08/04/17 01:30 93 L 08/04/17 01:27 99 18 94 L 08/03/17 20:00 97.6 F 106 H 22 H 102/54 L 94 L 08/03/17 19:46 102 H 18 93 L 08/03/17 19:45 102 H 18 93 L Weight Admit Weight 90.174 kg Weight 89.584 kg I&O: 08/02/17 08/03/17 08/04/17 06:59 06:59 06:59 Intake Total 778 1440 1220 Output Total 925 1270 5950 Balance -147 165 -8530 Result Diagrams: 08/04/17 05:33 08/04/17 05:33 <Doug Spears - Last Filed: 08/04/17 07:58> - Objective Vital Signs & Weight: Vital Signs (12 hours) Temp Pulse Resp BP BP Pulse Ox 08/04/17 09:18 97.8 F 86 22 H 82 L 08/04/17 09:05 86 93/51 L 08/04/17 08:48 97.8 F 86 22 H 93/51 L 82 L 08/04/17 08:11 87 16 08/04/17 06:13 94 18 99/56 L 94 L 08/04/17 04:00 97.4 F L 97 16 85/52 L 88 L 08/04/17 01:30 93 L 08/04/17 01:27 99 18 94 L Weight Admit Weight 198 lb 12.8 oz Weight 197 lb 8 oz I&O: 08/03/17 08/04/17 08/05/17 06:59 06:59 06:59 Intake Total 1440 1220 Output Total 1275 5950 Balance 165 -4730 Result Diagrams: 08/04/17 05:33 08/04/17 05:33 <Dm Louise - Last Filed: 08/04/17 10:49> Phys Exam - Physical Examination HEENT: moist MMs Neck: no nodes, supple JVD present Respiratory: no wheezing Diminished lung sounds bilaterally. Cardiovascular: RRR, no significant murmur Gastrointestinal: soft, non-tender, positive bowel sounds Distention improved from yesterday. Musculoskeletal: edema present Significantly improved from yesterday Neurological: non-focal, moves all 4 limbs Psychiatric: normal affect, A&O x 3 <Doug Spears - Last Filed: 08/04/17 07:58> Dx/Plan (1) CHF exacerbation Code(s): I50.9 - HEART FAILURE, UNSPECIFIED Status: Acute Plan: -On diuretic therapy. -Initiated home medications -Last ECHO in March 2017, will not repeat this at this time. -Monitor fluid status. -Will await to see diuresis from Metolazone and Bumetanide -Walking program and PT evaluation -Diuresis yesterday was 4730 ml -Will keep on home regimen -Discussed patient with Dr. Hatch yesterday and he recommended Acetazolamide 500mg daily for three days if the patient becomes alkalotic. We will be following that recommendation today. (2) COPD (chronic obstructive pulmonary disease) Status: Acute Plan: -Duonebs as needed -Increased Prednisone to 20mg -Continue home medications (3) Diabetes Code(s): E11.9 - TYPE 2 DIABETES MELLITUS WITHOUT COMPLICATIONS Status: Acute Plan: -Held home Metformin -SSI and accuchecks -Will restart home meds on discharge (4) Tobacco abuse Code(s): Z72.0 - TOBACCO USE Status: Acute Plan: -Counseled to quit -Will have nicotine patch available. (5) Chronic lung disease Code(s): J98.4 - OTHER DISORDERS OF LUNG Status: Chronic Plan: -Continue home medications -Will need outpatient follow up (6) Chronic pain syndrome Code(s): G89.4 - CHRONIC PAIN SYNDROME Status: Chronic Plan: -Under good control -Continue home meds (7) Depression Code(s): F32.9 - MAJOR DEPRESSIVE DISORDER, SINGLE EPISODE, UNSPECIFIED Status : Chronic Plan: -Stable -Continue home medications. (8) Hyperlipidemia Code(s): E78.5 - HYPERLIPIDEMIA, UNSPECIFIED Status: Chronic Plan: -Continue home meds (9) Hypertension Code(s): I10 - ESSENTIAL (PRIMARY) HYPERTENSION Status: Chronic Plan: -Continue home meds (10) PVD (peripheral vascular disease) with claudication Code(s): I73.9 - PERIPHERAL VASCULAR DISEASE, UNSPECIFIED Status: Suspected Plan: -s/p stenting in December 2016 and peripheral angiogram 1 week ago -Smoking cessation encouraged -Recommend outpatient follow up for this. (11) UTI (urinary tract infection) Status: Acute Plan: -Will start Macrobid -Urine culture pending - Plan Plan: Will monitor fluid status and make discharge planning from there. <Doug Spears - Last Filed: 08/04/17 07:58> Attending Addendum - Attending Addendum I personally evaluated the patient and discussed the management with Dr. Spears I agree with the History, Examination, Assessment and Plan documented above with any addition or exceptions noted below. Ms. Valdovions had good diuresis yesterday. However she developed hypokalemia, low BP and a systemic alkalosis. Her COPD is bad enough that she tends to underventilate with an alkalosis. Dr. Hatch suggested we use acetazolamide which we have started. I think at this point we should manage her CHF with GABRIELA, metolozone and spironolactone. We will likely start the spironolactone later today if BP is ok and K remains low. We will stop bumex. <Dm Louise - Last Filed: 08/04/17 10:49>
[2017-08-04 06:23] LABS: Anion Gap 12 mmol/L (10-20); BUN (Urea Nitrogen) 24 mg/dL (9.8-20.1); Calc. Creatinine Clearance 98 mL/min (70-130); Calcium 9.4 mg/dL (7.8-10.44); Carbon Dioxide 36 mmol/L (22-29); Chloride 92 mmol/L (98-107); Estimated GFR-MDRD 62
[2017-08-04] MEDS: Albuterol Sulfate 2.5 mg/3 ml Neb NEB SCH ×3 (08:11→19:22)
[2017-08-04] MEDS: Potassium Chloride 20 MEQ TAB PO SCH ×2 (09:01→17:31)
[2017-08-04] MEDS: predniSONE 20 MG TAB PO SCH (09:02)
[2017-08-04] MEDS: Magnesium Oxide 400 MG TAB PO SCH (09:02)
[2017-08-04] MEDS: Famotidine 20 MG TAB PO SCH ×2 (09:02→22:12)
[2017-08-04] MEDS: Metolazone 2.5 MG TAB PO SCH (09:02)
[2017-08-04] MEDS: Gabapentin 300 MG CAP PO SCH ×2 (09:02→22:12)
[2017-08-04] MEDS: Aspirin 81 mg Enteric Coated Tablet PO SCH (09:02)
[2017-08-04] MEDS: DULoxetine 30 MG CAP PO SCH ×2 (09:02→22:12)
[2017-08-04] MEDS: Nitrofurantoin Monohyd/M-Cryst 100 MG CAP PO SCH ×2 (09:02→22:12)
[2017-08-04] MEDS: Enoxaparin Sodium 40 MG/0.4 ML SYRINGE SC SCH (09:04)
[2017-08-04] MEDS: Fluticasone Propionate Nasal Spray 16 gm Bottle NASAL SCH (09:04)
[2017-08-04] MEDS: Lisinopril 2.5 MG TAB PO SCH (09:05)
[2017-08-04] MEDS: Bumetanide 1 MG TAB PO SCH (09:37)
[2017-08-04] MEDS: acetaZOLAMIDE Sodium 500 mg Vial IVP SCH (09:42)
[2017-08-04 12:43] LABS: Anion Gap 11 mmol/L (10-20); BUN (Urea Nitrogen) 23 mg/dL (9.8-20.1); Calc. Creatinine Clearance 92 mL/min (70-130); Calcium 9.5 mg/dL (7.8-10.44); Carbon Dioxide 37 mmol/L (22-29); Chloride 90 mmol/L (98-107); Estimated GFR-MDRD 58
[2017-08-04] MEDS ORDERED: Potassium Chloride 20 MEQ TAB PO SCH (13:15)
[2017-08-04] MEDS: tiZANidine HCl 4 MG TAB PO SCH (22:11)
[2017-08-04] MEDS: Simvastatin 5 MG TAB PO SCH (22:11)
[2017-08-05] MEDS: Ipratropium Bromide 2.5 ml Neb NEB SCH ×4 (01:02→19:23)
[2017-08-05] MEDS: HYDROcodone/Acetaminophen 10/325 mg Tablet PO PRN ×4 (02:18→21:50)
[2017-08-05 06:05] LABS: Anion Gap 15 mmol/L (10-20); BUN (Urea Nitrogen) 28 mg/dL (9.8-20.1); Calc. Creatinine Clearance 89 mL/min (70-130); Calcium 9.7 mg/dL (7.8-10.44); Carbon Dioxide 30 mmol/L (22-29); Chloride 94 mmol/L (98-107); Estimated GFR-MDRD 56
--- NOTE | 2017-08-05 06:14 | PDOC.FM ---
- Subjective Subjective: Patient states she had a good night. Her swelling has stayed down and her breathing is improved. She states she feels like she is ready to go home. She denies chest pain, n/v/d. She does note her same shortness of breath. - Objective Vital Signs & Weight: Vital Signs (12 hours) Temp Pulse Resp BP Pulse Ox 08/05/17 04:20 89/54 L 08/05/17 04:00 98.1 F 91 20 92 L 08/05/17 01:02 90 16 94 L 08/05/17 01:00 96 18 97/56 L 91 L 08/05/17 00:49 94 L 08/04/17 20:00 98.0 F 99 20 107/58 L 96 08/04/17 19:22 91 18 93 L 08/04/17 19:20 91 18 93 L Weight Admit Weight 90.174 kg Weight 89.721 kg I&O: 08/03/17 08/04/17 08/05/17 06:59 06:59 06:59 Intake Total 1440 1220 960 Output Total 1275 5950 1000 Balance 165 -4730 -40 Result Diagrams: 08/05/17 04:59 08/05/17 04:59 <Doug Spears - Last Filed: 08/05/17 06:52> - Objective Vital Signs & Weight: Vital Signs (12 hours) Temp Pulse Resp BP BP Pulse Ox 08/05/17 09:20 89 94/53 L 08/05/17 07:23 89 16 96 08/05/17 07:22 89 16 96 08/05/17 07:04 97.8 F 88 18 94/53 L 94 L 08/05/17 04:20 89/54 L 08/05/17 04:00 98.1 F 91 20 92 L 08/05/17 01:02 90 16 94 L 08/05/17 01:00 96 18 97/56 L 91 L 08/05/17 00:49 94 L Weight Admit Weight 198 lb 12.8 oz Weight 197 lb 12.8 oz I&O: 08/04/17 08/05/17 08/06/17 06:59 06:59 06:59 Intake Total 1220 1390 Output Total 5950 1800 Balance -4730 -410 Result Diagrams: 08/05/17 04:59 08/05/17 04:59 <Dm Louise - Last Filed: 08/05/17 10:17> Phys Exam - Physical Examination HEENT: moist MMs Neck: no nodes, supple JVD present Respiratory: clear to auscultation bilateral crackles at lung bases Cardiovascular: RRR, no significant murmur Gastrointestinal: soft, non-tender, positive bowel sounds Distention unchanged from previous Musculoskeletal: edema present Neurological: non-focal, moves all 4 limbs Psychiatric: normal affect, A&O x 3 Skin: no rash <Doug Spears - Last Filed: 08/05/17 06:52> Dx/Plan (1) CHF exacerbation Code(s): I50.9 - HEART FAILURE, UNSPECIFIED Status: Acute Plan: -On diuretic therapy. -Last ECHO in March 2017, will not repeat this at this time. -Monitor fluid status. -Walking program and PT evaluation -Diuresis yesterday was 40 ml -Discussed patient with Dr. Hatch yesterday and he recommended Acetazolamide 500mg daily for three days if the patient becomes alkalotic. We will be following that recommendation through Tuesday. -Will consider extra dose of IV lasix or metolazone -Planning to start Spironolactone and Bumex for outpatient therapy. Will have to have close follow up with [facility] (2) COPD (chronic obstructive pulmonary disease) Status: Acute Plan: -Duonebs as needed -Increased Prednisone to 20mg -Continue home medications (3) Diabetes Code(s): E11.9 - TYPE 2 DIABETES MELLITUS WITHOUT COMPLICATIONS Status: Acute Plan: -Held home Metformin -SSI and accuchecks -Will restart home meds on discharge (4) Tobacco abuse Code(s): Z72.0 - TOBACCO USE Status: Acute Plan: -Counseled to quit -Will have nicotine patch available. (5) Chronic lung disease Code(s): J98.4 - OTHER DISORDERS OF LUNG Status: Chronic Plan: -Continue home medications -Will need outpatient follow up (6) Chronic pain syndrome Code(s): G89.4 - CHRONIC PAIN SYNDROME Status: Chronic Plan: -Under good control -Continue home meds (7) Depression Code(s): F32.9 - MAJOR DEPRESSIVE DISORDER, SINGLE EPISODE, UNSPECIFIED Status : Chronic Plan: -Stable -Continue home medications. (8) Hyperlipidemia Code(s): E78.5 - HYPERLIPIDEMIA, UNSPECIFIED Status: Chronic Plan: -Continue home meds (9) Hypertension Code(s): I10 - ESSENTIAL (PRIMARY) HYPERTENSION Status: Chronic Plan: -Continue home meds (10) PVD (peripheral vascular disease) with claudication Code(s): I73.9 - PERIPHERAL VASCULAR DISEASE, UNSPECIFIED Status: Suspected Plan: -s/p stenting in December 2016 and peripheral angiogram 1 week ago -Smoking cessation encouraged -Recommend outpatient follow up for this. (11) UTI (urinary tract infection) Status: Acute Plan: -Will start Macrobid -Urine culture pending - Plan Plan: Will be undergoing diuresis throughout today. <Doug Spears - Last Filed: 08/05/17 06:52> Attending Addendum - Attending Addendum I personally evaluated the patient and discussed the management with Dr. Spears I agree with the History, Examination, Assessment and Plan documented above with any addition or exceptions noted below. Ms. Valdovinos feels much better. She is breathing better, some wheezing. Her potassium is now 3.7 and HCO3 is 30. She is tolerated the current regimen of Bumex, acetazolamide, and spironolactone. The Acetazolamide is for 3 days. We have emphasized the need to stop smoking. She wants to stop and asked for a patch today. We also emphasized the need for compliance and regular followup. We will try to arrange this in the clinic upon discharge. <Dm Louise - Last Filed: 08/05/17 10:17>
[2017-08-05 06:27] LABS: #Basophils 0.1 thou/uL (0.0-0.2); #Eosinphils 0.1 thou/uL (0.0-0.7); #Lymphocytes 2.7 thou/uL (1.20-3.40); #Monocytes 0.9 thou/uL (0.11-0.59); #Neutrophils 3.9 thou/uL (1.40-6.50); %Basophils 0.8 % (0.0-1.0); %Eosinophils 1.7 % (0.0-10.0); %Lymphocytes 35.3 % (21.0-51.0); %Monocytes 11.9 % (0.0-10.0); Hematocrit 36.2 % (36.0-47.0); Mean Platelet Volume 11.9 fL (7.4-10.4); Red Blood Cell (RBC) Count 4.77 mill/uL (4.20-5.40); White Blood Cell (WBC) Count 7.7 thou/uL (4.8-10.8)
[2017-08-05] MEDS: Albuterol Sulfate 2.5 mg/3 ml Neb NEB SCH ×3 (07:22→19:22)
[2017-08-05] MEDS: Bumetanide 1 MG TAB PO SCH ×2 (09:15→16:57)
[2017-08-05] MEDS: Potassium Chloride 20 MEQ TAB PO SCH ×2 (09:16→16:57)
[2017-08-05] MEDS: DULoxetine 30 MG CAP PO SCH ×2 (09:16→21:49)
[2017-08-05] MEDS: predniSONE 20 MG TAB PO SCH (09:16)
[2017-08-05] MEDS: Nitrofurantoin Monohyd/M-Cryst 100 MG CAP PO SCH ×2 (09:17→21:50)
[2017-08-05] MEDS: Aspirin 81 mg Enteric Coated Tablet PO SCH (09:18)
[2017-08-05] MEDS: Famotidine 20 MG TAB PO SCH ×2 (09:18→21:49)
[2017-08-05] MEDS: Magnesium Oxide 400 MG TAB PO SCH (09:18)
[2017-08-05] MEDS: Enoxaparin Sodium 40 MG/0.4 ML SYRINGE SC SCH (09:19)
[2017-08-05] MEDS: Fluticasone Propionate Nasal Spray 16 gm Bottle NASAL SCH (09:20)
[2017-08-05] MEDS: Spironolactone 25 MG TAB PO SCH (09:20)
[2017-08-05] MEDS: Lisinopril 2.5 MG TAB PO SCH (09:20)
[2017-08-05] MEDS: Gabapentin 300 MG CAP PO SCH ×2 (09:20→21:50)
[2017-08-05] MEDS: acetaZOLAMIDE Sodium 500 mg Vial IVP SCH (09:27)
[2017-08-05] MEDS: tiZANidine HCl 4 MG TAB PO SCH (21:49)
[2017-08-05] MEDS: Simvastatin 5 MG TAB PO SCH (21:49)
[2017-08-06] MEDS: Ipratropium Bromide 2.5 ml Neb NEB SCH ×4 (00:16→19:12)
[2017-08-06] MEDS: HYDROcodone/Acetaminophen 10/325 mg Tablet PO PRN ×3 (03:27→20:49)
[2017-08-06 06:08] LABS: #Basophils 0.1 thou/uL (0.0-0.2); #Eosinphils 0.2 thou/uL (0.0-0.7); #Lymphocytes 2.5 thou/uL (1.20-3.40); #Monocytes 0.7 thou/uL (0.11-0.59); #Neutrophils 3.5 thou/uL (1.40-6.50); %Basophils 1.6 % (0.0-1.0); %Eosinophils 2.3 % (0.0-10.0); %Lymphocytes 36.4 % (21.0-51.0); Anisocytosis SLIGHT = 6-15 cells (100X) (0-5/hpf); Hematocrit 31.9 % (36.0-47.0); Hypochromia SLIGHT = 6-15 cells (100X) (0-5/hpf); Mean Platelet Volume 10.9 fL (7.4-10.4); Red Blood Cell (RBC) Count 4.17 mill/uL (4.20-5.40)
--- NOTE | 2017-08-06 06:19 | PDOC.FM ---
- Subjective Subjective: Patient doing well this AM. No significant overnight events. Patient reports she is improved from previous days. She is feeling well and denies any chest pain, shortness of breath, nausea or vomiting. Her extremity swelling has improved drastically. Patient still endorses some fluid retention in abdominal area. - Objective MAR Reviewed: Yes Vital Signs & Weight: Vital Signs (12 hours) Temp Pulse Resp BP Pulse Ox 08/06/17 04:20 98.0 F 85 18 92/51 L 90 L 08/06/17 00:20 88 L 08/06/17 00:16 88 L 08/05/17 23:46 97.9 F 89 18 91/50 L 91 L 08/05/17 20:00 97.7 F 92 20 98/56 L 92 L 08/05/17 19:25 87 L 08/05/17 19:22 107 H 18 87 L Weight Admit Weight 90.174 kg Weight 88.496 kg I&O: 08/04/17 08/05/17 08/06/17 06:59 06:59 06:59 Intake Total 1220 1390 1810 Output Total 5950 1800 4800 Balance -6369 -939 -7556 Result Diagrams: 08/06/17 04:44 08/06/17 04:44 EKG Reviewed by me: Yes Radiology Reviewed by me: No <Monica Hayes - Last Filed: 08/06/17 07:51> - Objective Vital Signs & Weight: Vital Signs (12 hours) Temp Pulse Resp BP BP Pulse Ox 08/06/17 09:08 88 90/54 L 08/06/17 07:52 98.2 F 88 17 90/54 L 91 L 08/06/17 06:51 93 L 08/06/17 06:50 88 16 93 L 08/06/17 06:49 88 16 93 L 08/06/17 04:20 98.0 F 85 18 92/51 L 90 L 08/06/17 00:20 88 L 08/06/17 00:16 88 L 08/05/17 23:46 97.9 F 89 18 91/50 L 91 L Weight Admit Weight 198 lb 12.8 oz Weight 195 lb 1.6 oz I&O: 08/05/17 08/06/17 08/07/17 06:59 06:59 06:59 Intake Total 1390 1810 240 Output Total 1800 4800 Balance -410 -2990 240 Result Diagrams: 08/06/17 04:44 08/06/17 04:44 <Dm Louise - Last Filed: 08/06/17 10:56> Phys Exam - Physical Examination Constitutional: NAD HEENT: moist MMs, sclera anicteric Neck: supple Respiratory: wheezing present Mild rales in lower lung bases bilaterally Cardiovascular: RRR, no significant murmur Gastrointestinal: soft, non-tender, positive bowel sounds Mildly distended. Prominent xyphoid process. Musculoskeletal: pulses present Trace LE edema. Neurological: non-focal Psychiatric: normal affect, A&O x 3 Skin: cap refill <2 seconds Deviation from normal: Healing wounds on LE's bilaterally from excess swelling <Monica Hayes - Last Filed: 08/06/17 07:51> Dx/Plan (1) CHF exacerbation Code(s): I50.9 - HEART FAILURE, UNSPECIFIED Status: Acute (2) COPD (chronic obstructive pulmonary disease) Status: Acute (3) Diabetes mellitus, type II Status: Acute (4) UTI (urinary tract infection) Status: Acute QualifierTitle: Encounter type: initial encounter (5) Tobacco abuse Code(s): Z72.0 - TOBACCO USE Status: Chronic (6) Chronic pain syndrome Code(s): G89.4 - CHRONIC PAIN SYNDROME Status: Chronic (7) Depression Code(s): F32.9 - MAJOR DEPRESSIVE DISORDER, SINGLE EPISODE, UNSPECIFIED Status : Chronic (8) Hyperlipidemia Code(s): E78.5 - HYPERLIPIDEMIA, UNSPECIFIED Status: Chronic (9) Hypertension Code(s): I10 - ESSENTIAL (PRIMARY) HYPERTENSION Status: Chronic (10) PVD (peripheral vascular disease) with claudication Code(s): I73.9 - PERIPHERAL VASCULAR DISEASE, UNSPECIFIED Status: Chronic - Plan Plan: (1) CHF exacerbation Code(s): I50.9 - HEART FAILURE, UNSPECIFIED Status: Acute Plan: -On diuretic therapy. -Last ECHO in March 2017, will not repeat this at this time. -Monitor fluid status. Negative fluid status of 2990 L yesterday -Walking program and PT evaluation -D/C acetazolamide today as this is day 3 -Planning to start Spironolactone and Bumex for outpatient therapy. Will have to have close follow up with [facility] -Continue to follow patient's status throughout the rest of today to ensure she is on proper medication regimen before discharging home (2) COPD (chronic obstructive pulmonary disease) Status: Acute Plan: -Duonebs as needed -Increased Prednisone to 20mg, will keep patient on this upon discharge per Dr. Hatch -Continue home medications (3) Diabetes Code(s): E11.9 - TYPE 2 DIABETES MELLITUS WITHOUT COMPLICATIONS Status: Acute Plan: -Held home Metformin -SSI and accuchecks -Will restart home meds on discharge -BG has been well controlled (4) Tobacco abuse Code(s): Z72.0 - TOBACCO USE Status: Acute Plan: -Counseled to quit -Will have nicotine patch available. (5) Chronic lung disease Code(s): J98.4 - OTHER DISORDERS OF LUNG Status: Chronic Plan: -Continue home medications -Will need outpatient follow up (6) Chronic pain syndrome Code(s): G89.4 - CHRONIC PAIN SYNDROME Status: Chronic Plan: -Under good control -Continue home meds (7) Depression Code(s): F32.9 - MAJOR DEPRESSIVE DISORDER, SINGLE EPISODE, UNSPECIFIED Status : Chronic Plan: -Stable -Continue home medications. (8) Hyperlipidemia Code(s): E78.5 - HYPERLIPIDEMIA, UNSPECIFIED Status: Chronic Plan: -Continue home meds (9) Hypertension Code(s): I10 - ESSENTIAL (PRIMARY) HYPERTENSION Status: Chronic Plan: -Continue home meds (10) PVD (peripheral vascular disease) with claudication Code(s): I73.9 - PERIPHERAL VASCULAR DISEASE, UNSPECIFIED Status: Suspected Plan: -s/p stenting in December 2016 and peripheral angiogram 1 week ago -Smoking cessation encouraged -Recommend outpatient follow up for this. -Walking therapy recommended (11) UTI (urinary tract infection) Status: Acute Plan: -Macrobid started; december d/c as urine cx grew out enteric gypsy <100,000 <Monica Hayes - Last Filed: 08/06/17 07:51> Attending Addendum - Attending Addendum I personally evaluated the patient and discussed the management with Dr. Hayes I agree with the History, Examination, Assessment and Plan documented above with any addition or exceptions noted below. She continues to diurese and is tolerated spironolactone. However, she redeveloped hypokalemia and increased alkalosis overnight. We will vigorously replace potassium, and continue acetazolamide for now. Otherwise improving. <Dm Louise - Last Filed: 08/06/17 10:56>
[2017-08-06 06:24] LABS: Anion Gap 14 mmol/L (10-20); BUN (Urea Nitrogen) 33 mg/dL (9.8-20.1); Calc. Creatinine Clearance 82 mL/min (70-130); Calcium 9.2 mg/dL (7.8-10.44); Carbon Dioxide 33 mmol/L (22-29); Chloride 92 mmol/L (98-107); Estimated GFR-MDRD 51
[2017-08-06] MEDS: Albuterol Sulfate 2.5 mg/3 ml Neb NEB SCH ×3 (06:49→19:11)
[2017-08-06] MEDS: Potassium Chloride 20 MEQ TAB PO SCH (09:06)
[2017-08-06] MEDS: Enoxaparin Sodium 40 MG/0.4 ML SYRINGE SC SCH (09:07)
[2017-08-06] MEDS: Gabapentin 300 MG CAP PO SCH ×2 (09:07→20:46)
[2017-08-06] MEDS: Spironolactone 25 MG TAB PO SCH (09:07)
[2017-08-06] MEDS: DULoxetine 30 MG CAP PO SCH ×2 (09:07→20:46)
[2017-08-06] MEDS: predniSONE 20 MG TAB PO SCH (09:07)
[2017-08-06] MEDS: Magnesium Oxide 400 MG TAB PO SCH (09:07)
[2017-08-06] MEDS: Aspirin 81 mg Enteric Coated Tablet PO SCH (09:07)
[2017-08-06] MEDS: Bumetanide 1 MG TAB PO SCH ×3 (09:07→17:51)
[2017-08-06] MEDS: Famotidine 20 MG TAB PO SCH ×2 (09:08→20:46)
[2017-08-06] MEDS: Lisinopril 2.5 MG TAB PO SCH (09:08)
[2017-08-06] MEDS: acetaZOLAMIDE Sodium 500 mg Vial IVP SCH (09:09)
[2017-08-06] MEDS: Fluticasone Propionate Nasal Spray 16 gm Bottle NASAL SCH (09:09)
[2017-08-06] MEDS ORDERED: tiZANidine HCl 4 MG TAB PO PRN (13:36)
[2017-08-06 16:20] LABS: Anion Gap 13 mmol/L (10-20); BUN (Urea Nitrogen) 36 mg/dL (9.8-20.1); Calc. Creatinine Clearance 84 mL/min (70-130); Calcium 9.3 mg/dL (7.8-10.44); Carbon Dioxide 31 mmol/L (22-29); Chloride 94 mmol/L (98-107); Estimated GFR-MDRD 53
[2017-08-06] MEDS ORDERED: Potassium Chloride 20 MEQ TAB PO SCH (17:00)
[2017-08-06] MEDS: Simvastatin 5 MG TAB PO SCH (20:45)
[2017-08-07] MEDS: Ipratropium Bromide 2.5 ml Neb NEB SCH ×4 (00:20→18:59)
[2017-08-07 05:35] LABS: Anion Gap 12 mmol/L (10-20); BUN (Urea Nitrogen) 33 mg/dL (9.8-20.1); Calc. Creatinine Clearance 89 mL/min (70-130); Calcium 9.3 mg/dL (7.8-10.44); Carbon Dioxide 32 mmol/L (22-29); Chloride 95 mmol/L (98-107); Estimated GFR-MDRD 54
--- NOTE | 2017-08-07 05:57 | PDOC.FM ---
- Subjective Subjective: Patient doing well this AM. No significant overnight events. Patient denies chest pain, palpitations, orthostatic hypotension, fever, or chills. - Objective MAR Reviewed: Yes Vital Signs & Weight: Vital Signs (12 hours) Temp Pulse Resp BP Pulse Ox 08/07/17 04:00 98.0 F 99 20 108/55 L 92 L 08/07/17 00:20 100 18 93 L 08/07/17 00:00 98.6 F 102 H 20 116/58 L 92 L 08/06/17 20:49 97.6 F 97 18 114/56 L 97 08/06/17 20:29 97.6 F 97 18 97 08/06/17 19:06 91 18 95 Weight Admit Weight 90.174 kg Weight 92.17 kg I&O: 08/05/17 08/06/17 08/07/17 06:59 06:59 06:59 Intake Total 1390 1810 2100 Output Total 1800 4800 4900 Balance -410 2990 2803 Result Diagrams: 08/07/17 04:57 08/07/17 04:57 EKG Reviewed by me: No Radiology Reviewed by me: No <Monica Hayes - Last Filed: 08/07/17 08:08> - Objective Vital Signs & Weight: Vital Signs (12 hours) Temp Pulse Resp BP BP Pulse Ox 08/07/17 08:54 95 116/59 L 08/07/17 08:00 97.8 F 97 18 116/59 L 92 L 08/07/17 07:15 95 20 92 L 08/07/17 04:00 98.0 F 99 20 108/55 L 92 L 08/07/17 00:20 100 18 93 L 08/07/17 00:00 98.6 F 102 H 20 116/58 L 92 L Weight Admit Weight 198 lb 12.8 oz Weight 203 lb 3.2 oz I&O: 08/06/17 08/07/17 08/08/17 06:59 06:59 06:59 Intake Total 1810 2100 240 Output Total 4800 4900 Balance -2990 -2800 240 Result Diagrams: 08/07/17 04:57 08/07/17 04:57 <Dm Louise - Last Filed: 08/07/17 09:52> Phys Exam - Physical Examination Constitutional: NAD HEENT: moist MMs, sclera anicteric Neck: supple Decreased breath sounds Cardiovascular: RRR, no significant murmur Gastrointestinal: soft, non-tender, no distention, positive bowel sounds Musculoskeletal: pulses present Trace edema Neurological: non-focal, moves all 4 limbs Psychiatric: normal affect, A&O x 3 Skin: cap refill <2 seconds Deviation from normal: Stasis dermatitis of LE's <FreddyMonica - Last Filed: 08/07/17 08:08> Dx/Plan (1) CHF exacerbation Code(s): I50.9 - HEART FAILURE, UNSPECIFIED Status: Acute (2) COPD (chronic obstructive pulmonary disease) Status: Acute (3) Diabetes mellitus, type II Status: Acute (4) UTI (urinary tract infection) Status: Acute QualifierTitle: Encounter type: initial encounter (5) Tobacco abuse Code(s): Z72.0 - TOBACCO USE Status: Chronic (6) Chronic pain syndrome Code(s): G89.4 - CHRONIC PAIN SYNDROME Status: Chronic (7) Depression Code(s): F32.9 - MAJOR DEPRESSIVE DISORDER, SINGLE EPISODE, UNSPECIFIED Status : Chronic (8) Hyperlipidemia Code(s): E78.5 - HYPERLIPIDEMIA, UNSPECIFIED Status: Chronic (9) Hypertension Code(s): I10 - ESSENTIAL (PRIMARY) HYPERTENSION Status: Chronic (10) PVD (peripheral vascular disease) with claudication Code(s): I73.9 - PERIPHERAL VASCULAR DISEASE, UNSPECIFIED Status: Chronic - Plan Plan: (1) CHF exacerbation Code(s): I50.9 - HEART FAILURE, UNSPECIFIED Status: Acute Plan: -On diuretic therapy. -Monitor fluid status. Negative fluid status of 2800 mL yesterday -Walking program and PT evaluation -Patient remains alkalotic. Vigorously replaced K+. Will continue to monitor. -Planning to start Spironolactone and Bumex for outpatient therapy. Initiated in hospital. Will have to have close follow up with [facility] -Continue to follow patient's status throughout the rest of today to ensure she is on proper medication regimen before discharging home (2) COPD (chronic obstructive pulmonary disease) Status: Acute Plan: -Duonebs as needed -Increased Prednisone to 20mg, will keep patient on this upon discharge per Dr. Hatch -Continue home medications (3) Diabetes Code(s): E11.9 - TYPE 2 DIABETES MELLITUS WITHOUT COMPLICATIONS Status: Acute Plan: -Held home Metformin -SSI and accuchecks -Will restart home meds on discharge -BG has been well controlled (4) Tobacco abuse Code(s): Z72.0 - TOBACCO USE Status: Acute Plan: -Counseled to quit -Will have nicotine patch available. (5) Chronic lung disease Code(s): J98.4 - OTHER DISORDERS OF LUNG Status: Chronic Plan: -Continue home medications -Will need outpatient follow up (6) Chronic pain syndrome Code(s): G89.4 - CHRONIC PAIN SYNDROME Status: Chronic Plan: -Under good control -Continue home meds (7) Depression Code(s): F32.9 - MAJOR DEPRESSIVE DISORDER, SINGLE EPISODE, UNSPECIFIED Status : Chronic Plan: -Stable -Continue home medications. (8) Hyperlipidemia Code(s): E78.5 - HYPERLIPIDEMIA, UNSPECIFIED Status: Chronic Plan: -Continue home meds (9) Hypertension Code(s): I10 - ESSENTIAL (PRIMARY) HYPERTENSION Status: Chronic Plan: -Continue home meds (10) PVD (peripheral vascular disease) with claudication Code(s): I73.9 - PERIPHERAL VASCULAR DISEASE, UNSPECIFIED Status: Suspected Plan: -s/p stenting in December 2016 and peripheral angiogram 1 week ago -Smoking cessation encouraged -Recommend outpatient follow up for this. -Walking therapy recommended (11) UTI (urinary tract infection) Status: Acute Plan: -Macrobid d/c'd d/t negative urine culture and asymptomatic <Monica Hayes - Last Filed: 08/07/17 08:08> Attending Addendum - Attending Addendum I personally evaluated the patient and discussed the management with Dr. Hayes I agree with the History, Examination, Assessment and Plan documented above with any addition or exceptions noted below. Patient is doing well and continues to diurese. Her meds were held yesterday secondary to low blood pressure. Potassium is still low at 3.3. We will continue to viroorously replace K and continue other meds for CHF. <Dm Louise - Last Filed: 08/07/17 09:52>
[2017-08-07 06:14] LABS: #Basophils 0.1 thou/uL (0.0-0.2); #Eosinphils 0.2 thou/uL (0.0-0.7); #Monocytes 0.9 thou/uL (0.11-0.59); #Neutrophils 3.8 thou/uL (1.40-6.50); %Basophils 1.5 % (0.0-1.0); %Lymphocytes 36.8 % (21.0-51.0); Hematocrit 34.2 % (36.0-47.0); Mean Platelet Volume 11.1 fL (7.4-10.4)
[2017-08-07] MEDS: Albuterol Sulfate 2.5 mg/3 ml Neb NEB SCH ×3 (07:18→18:58)
[2017-08-07] MEDS: Famotidine 20 MG TAB PO SCH ×2 (08:46→20:34)
[2017-08-07] MEDS: Gabapentin 300 MG CAP PO SCH ×2 (08:47→20:34)
[2017-08-07] MEDS: Enoxaparin Sodium 40 MG/0.4 ML SYRINGE SC SCH (08:47)
[2017-08-07] MEDS: Magnesium Oxide 400 MG TAB PO SCH (08:47)
[2017-08-07] MEDS: DULoxetine 30 MG CAP PO SCH ×2 (08:47→20:34)
[2017-08-07] MEDS: predniSONE 20 MG TAB PO SCH (08:47)
[2017-08-07] MEDS: Aspirin 81 mg Enteric Coated Tablet PO SCH (08:47)
[2017-08-07] MEDS: Fluticasone Propionate Nasal Spray 16 gm Bottle NASAL SCH (08:48)
[2017-08-07] MEDS: Bumetanide 1 MG TAB PO SCH ×2 (08:54→15:52)
[2017-08-07] MEDS: Spironolactone 25 MG TAB PO SCH (08:54)
[2017-08-07] MEDS: Lisinopril 2.5 MG TAB PO SCH (08:54)
[2017-08-07] MEDS: HYDROcodone/Acetaminophen 10/325 mg Tablet PO PRN ×2 (09:00→15:52)
[2017-08-07] MEDS: Simvastatin 5 MG TAB PO SCH (20:35)
[2017-08-08] MEDS: HYDROcodone/Acetaminophen 10/325 mg Tablet PO PRN ×3 (00:01→12:08)
[2017-08-08] MEDS: Ipratropium Bromide 2.5 ml Neb NEB SCH ×2 (00:20→07:14)
--- NOTE | 2017-08-08 06:05 | PDOC.FM ---
- Subjective Subjective: Patient had a good night. She is ready to go home. It was stressed to the patient that she needs to have close follow up in the [facility] and with her PCP she expressed understanding to this. She denies chest pain, n/v/d. Her lower extremity edema is improved, but she does still endorse fluid retention in her abdomen. She denies any sob different than her normal. She has no other complaints at this time. - Objective Vital Signs & Weight: Vital Signs (12 hours) Temp Pulse Resp BP Pulse Ox 08/08/17 04:00 98.0 F 86 10 L 119/54 L 92 L 08/08/17 00:20 94 18 93 L 08/07/17 20:00 97.4 F L 99 18 114/59 L 94 L 08/07/17 19:40 97.4 F L 94 18 94 L 08/07/17 18:58 99 18 91 L Weight Admit Weight 90.174 kg Weight 93.213 kg I&O: 08/06/17 08/07/17 08/08/17 06:59 06:59 06:59 Intake Total 1810 2100 900 Output Total 4800 4900 1400 Balance -2990 -2800 -500 Result Diagrams: 08/08/17 05:32 08/08/17 05:32 Phys Exam - Physical Examination HEENT: moist MMs Neck: no nodes, supple Respiratory: no wheezing Cardiovascular: RRR, no significant murmur Gastrointestinal: soft, non-tender, no distention, positive bowel sounds Musculoskeletal: edema present Significantly improved Neurological: non-focal, normal sensation, moves all 4 limbs Lymphatic: no nodes Psychiatric: normal affect, A&O x 3 Skin: no rash Dx/Plan (1) CHF exacerbation Code(s): I50.9 - HEART FAILURE, UNSPECIFIED Status: Acute Plan: -On diuretic therapy. -Last ECHO in March 2017, will not repeat this at this time. -Monitor fluid status. -Walking program and PT evaluation -Planning to consider Spironolactone and Bumex for outpatient therapy. Will have to have close follow up with [facility] Failure Clinic. -Will consider Lasix for outpatient therapy in the short term. (2) COPD (chronic obstructive pulmonary disease) Status: Acute Qualifiers: Plan: -Duonebs as needed -Increased Prednisone to 20mg -Continue home medications (3) Diabetes Code(s): E11.9 - TYPE 2 DIABETES MELLITUS WITHOUT COMPLICATIONS Status: Acute Plan: -Held home Metformin -SSI and accuchecks -Will restart home meds on discharge (4) Tobacco abuse Code(s): Z72.0 - TOBACCO USE Status: Chronic Plan: -Counseled to quit -Will have nicotine patch available. (5) Chronic lung disease Code(s): J98.4 - OTHER DISORDERS OF LUNG Status: Chronic Plan: -Continue home medications -Will need outpatient follow up (6) Chronic pain syndrome Code(s): G89.4 - CHRONIC PAIN SYNDROME Status: Chronic Plan: -Under good control -Continue home meds (7) Depression Code(s): F32.9 - MAJOR DEPRESSIVE DISORDER, SINGLE EPISODE, UNSPECIFIED Status : Chronic Plan: -Stable -Continue home medications. (8) Hyperlipidemia Code(s): E78.5 - HYPERLIPIDEMIA, UNSPECIFIED Status: Chronic Plan: -Continue home meds (9) Hypertension Code(s): I10 - ESSENTIAL (PRIMARY) HYPERTENSION Status: Chronic Plan: -Continue home meds (10) PVD (peripheral vascular disease) with claudication Code(s): I73.9 - PERIPHERAL VASCULAR DISEASE, UNSPECIFIED Status: Chronic Plan: -s/p stenting in December 2016 and peripheral angiogram 1 week ago -Smoking cessation encouraged -Recommend outpatient follow up for this. (11) UTI (urinary tract infection) Status: Acute Qualifiers: Encounter type: initial encounter Plan: -Macrobid d/c -Negative urine culture and asymptomatic - Plan Plan: Patient will likely be discharged home today. It will be stressed that she needs to be compliant and keep close outpatient followup with her PCP and Heart Failure clinic.
[2017-08-08 06:11] LABS: Anion Gap 14 mmol/L (10-20); BUN (Urea Nitrogen) 29 mg/dL (9.8-20.1); Calc. Creatinine Clearance 110 mL/min (70-130); Calcium 9.2 mg/dL (7.8-10.44); Carbon Dioxide 30 mmol/L (22-29); Chloride 97 mmol/L (98-107); Estimated GFR-MDRD 68
[2017-08-08 07:07] LABS: #Basophils 0.1 thou/uL (0.0-0.2); #Eosinphils 0.3 thou/uL (0.0-0.7); #Lymphocytes 2.5 thou/uL (1.20-3.40); #Monocytes 0.8 thou/uL (0.11-0.59); #Neutrophils 3.7 thou/uL (1.40-6.50); %Basophils 1.1 % (0.0-1.0); %Eosinophils 4.1 % (0.0-10.0); %Lymphocytes 33.3 % (21.0-51.0); %Monocytes 11.2 % (0.0-10.0); Hematocrit 33.6 % (36.0-47.0); Hypochromia MODERATE=16-30 cells (100X) (0-5/hpf); Mean Platelet Volume 11.3 fL (7.4-10.4); Microcytosis SLIGHT = 6-15 cells (100X) (0-5/hpf); Neutrophil 51 % (42-75); Polychromasia MODERATE = 3-4 cells (100X) (0-2/hpf); Red Blood Cell (RBC) Count 4.43 mill/uL (4.20-5.40); Target Cells SLIGHT = 2-5 cells (100X) (0-1/hpf); White Blood Cell (WBC) Count 7.4 thou/uL (4.8-10.8)
[2017-08-08] MEDS: Albuterol Sulfate 2.5 mg/3 ml Neb NEB SCH (07:13)
[2017-08-08] MEDS: Fluticasone Propionate Nasal Spray 16 gm Bottle NASAL SCH (08:18)
[2017-08-08] MEDS: DULoxetine 30 MG CAP PO SCH (08:19)
[2017-08-08] MEDS: Lisinopril 2.5 MG TAB PO SCH (08:19)
[2017-08-08] MEDS: Bumetanide 1 MG TAB PO SCH (08:19)
[2017-08-08] MEDS: predniSONE 20 MG TAB PO SCH (08:20)
[2017-08-08] MEDS: Enoxaparin Sodium 40 MG/0.4 ML SYRINGE SC SCH (08:20)
[2017-08-08] MEDS: Famotidine 20 MG TAB PO SCH (08:20)
[2017-08-08] MEDS: Magnesium Oxide 400 MG TAB PO SCH (08:20)
[2017-08-08] MEDS: Aspirin 81 mg Enteric Coated Tablet PO SCH (08:20)
[2017-08-08] MEDS: Spironolactone 25 MG TAB PO SCH (08:20)
[2017-08-08] MEDS: Gabapentin 300 MG CAP PO SCH (08:20)
[2017-08-08 11:36] VITALS: BP 115/57; TEMP 97.7
--- NOTE | 2017-08-08 14:42 | DIS-2 ---
DATE OF ADMISSION: 08/01/2017 DATE OF DISCHARGE: 08/08/2017 RESIDENT: Dr. Spears. ADMITTING ATTENDING: Dr. Louise. DISCHARGE ATTENDING: Dr. Salas. CONSULTS: 1. Case management. 2. Dietitian. 3. Heart failure disease management. 4. PT evaluation and treatment. 5. Wound care evaluation and treatment. PROCEDURES: None. PRIMARY DIAGNOSES: 1. Acute congestive heart failure exacerbation. 2. Chronic obstructive pulmonary disease. 3. Diabetes. 4. Tobacco abuse. SECONDARY DIAGNOSES: 1. Chronic lung disease. 2. Chronic pain syndrome. 3. Depression. 4. Hyperlipidemia. 5. Hypertension. 6. Peripheral vascular disease with claudication. DISCHARGE MEDICATIONS: 1. Pravastatin 20 mg. 2. Bumetanide 2 mg b.i.d. 3. Lisinopril 2.5 mg. 4. Aspirin 81 mg. 5. Albuterol nebulizer t.i.d. 6. Albuterol sulfate ProAir 8.5 grams 2 puffs t.i.d. p.r.n. 7. Spiriva 18 mcg. 8. Liraglutide 1.2 mg subcu daily. 9. Metformin 1000 mg b.i.d. 10. Cymbalta 30 mg b.i.d. 11. Magnesium 400 mg daily. 12. Tizanidine 4 mg. 13. Hydrocodone/acetaminophen 10/325 q.i.d. p.r.n. 14. Potassium chloride 40 mEq b.i.d. 15. Gabapentin 300 mg b.i.d. 16. Prednisone 10 mg. 17. Spironolactone 12.5 mg. DISCONTINUED MEDICATIONS: Metolazone 2.5 mg daily. HISTORY OF PRESENT ILLNESS AND HOSPITAL COURSE: This is a 52-year-old female who presents with a 1 week history of increasing shortness of breath and swelling. She states she had a peripheral vascular procedure by Dr. Dye last week and since then, she has gained 30 pounds. She also noted she is having some trouble with ambulating, having to sleep more upright. She notes being more short of breath. She was seen at the [facility] and the nurse practitioner there told her that she could stop taking one of her diuretics on a daily basis. She then called to the [facility] and told her about the weight gain and they told her to come to the ED. Apparently , her who usually does her medications for her at home, had went to prison for a few days and knows that his was noncompliant with medications causing some of this weight gain. She has no other complaints at this time. In the ED, she was given Lasix. During the hospitalization, she was aggressively diuresed to the point that she let out 4000 mL in 1 day. Her diuresis ranged from a positive balance of 165 to a negative balance of 4730 mL. She had some notable lab values, hemoglobin of 11.0 on day of admission to 9.5 on day of discharge, likely from numerous labs being drawn. She did have a potassium that ranged from 3.0-4.4 and she was 3.6 on day of discharge, her creatinine ranged from 0.84 increased to as high as 1.11 and decreased to 0.87 on day of discharge. The patient also had a bicarbonate level day of admission of 31 that ranged up to 37 and then slowly down trended back to 30 on day of discharge. The patient was aggressively diuresed, because of her CHF exacerbation. She did experience a contraction alkalosis, because of the aggressive diuresis and her poor lung function from her COPD. The patient does require oxygen at home of 3 liters to be in the low 90s, saturation oconnell; however, during the hospitalization and the contraction alkalosis, she was requiring 4 and 5 liters of oxygen to maintain sats in the upper 80s. She did not need any further intervention from an oxygen saturation point and has her contraction alkalosis improved. Her oxygen saturation improved with less and less oxygen. On day of discharge, she returned to her baseline of 3 liters of oxygen to be in the low 90s, saturation. Patient was counseled heavily on how close follow up she needs to have in the [facility] Failure Clinic as well as her primary care provider to ensure that her potassium does not increase to a dangerous level as well as making sure that her fluid balance stays to a point where she can tolerate daily life. She will be followed closely by the [facility] Failure Clinic and by [facility] and she will need to keep those appointments as close as possible. She otherwise had no other complications during the hospitalization. She was seen by the walking program and the PT evaluation and treatment to gain some of her strength back and to get her walking again. They had reported that she was able to walk on her own with the supplemental oxygen. The patient during the contraction alkalosis also underwent treatment with acetazolamide to help improve some of her alkalosis. For her diuresis was given IV Lasix, metolazone and bumetanide and then was discontinued on IV Lasix and the metolazone and was able to be diuresed with just bumetanide and spironolactone going forward. This will be the regimen that she will continue on as an outpatient with the close followup. The patient otherwise had no other complications during this hospitalization and was discharged on appropriate condition. DISPOSITION: Stable. DISCHARGE INSTRUCTIONS: 1. Location. She will be discharged home into her own care with home health services. 2. Diet: Will be a diabetic diet and a heart healthy diet. 3. Activity: Will be as tolerated with no restrictions. She will be having supplemental oxygen at home. 4. Follow up will be with her primary care provider, Dr. Chen on 2016 as well as her manager enrollment, Dr. Hatch in 1 week and as well as the [facility] Failure Clinic and the cardiac rehab facility in the near future as well. We wish the best of luck and hope that she no longer has any complications from this condition. TERRENCE
--- NOTE | 2017-08-08 14:49 | ADD-PRG ---
This is an addendum to the note of Dr. Doug Spears. Ms. Valdovinos is a 52-year-old white female patient who was admitted with acute heart failure and COPD. She has had a good diuresis and is feeling improved. Evidently, she had missed several medications that led to this most recent exacerbation. Lung sounds were much improved today and she is in no re spiratory distress. She will be discharged for close followup.
--- NOTE | 2017-08-22 13:53 | EKG ---
Test Reason : CHF Blood Pressure : / mmHG Vent. Rate : 102 BPM Atrial Rate : 102 BPM P-R Int : 160 ms QRS Dur : 104 ms QT Int : 362 ms P-R-T Axes : 061 166 -24 degrees QTc Int : 471 ms Sinus tachycardia Low voltage QRS Possible Inferior infarct , age undetermined Possible Anterolateral infarct , age undetermined Abnormal ECG Confirmed by SALINAS HARP, THUY ([id number]), telegraph editor WAYNE BLEVINS ([id number]) on 08/22/2017 1:52:31 PM Referred By: Confirmed By:THUY NIÑO MD
== END 2017-08-08 12:24 | disposition home health service (06) | DRG 292 ==
LOC: ERS 08:38 → ERHOLD 10:21 → 2NO 16:07
PROVIDERS: ADMIT Internal Medicine; ATTEND Internal Medicine
DX: I11.0 Hypertensive heart disease with heart failure (principal); E87.2 Acidosis; J96.11 Chronic respiratory failure with hypoxia; E11.51 Type 2 diabetes mellitus with diabetic peripheral angiopathy without gangrene; E87.3 Alkalosis; F17.210 Nicotine dependence, cigarettes, uncomplicated; D50.9 Iron deficiency anemia, unspecified; N39.0 Urinary tract infection, site not specified; F32.9 Major depressive disorder, single episode, unspecified; J44.9 Chronic obstructive pulmonary disease, unspecified; E78.5 Hyperlipidemia, unspecified; G47.33 Obstructive sleep apnea (adult) (pediatric); Z79.84 Long term (current) use of oral hypoglycemic drugs; G89.4 Chronic pain syndrome; I50.33 Acute on chronic diastolic (congestive) heart failure
CPT/HCPCS: 36415; 36416; 71010; 80048; 80053; 81001; 82553; 83605; 83690; 83880; 84484; 85025; 85610; 85730; 87040; 87086; 93005; 93798; 94640; 96365; 96375; G8978-GP-CM; G8979-GP-CK; J1120; J1650; J1940; J3490; J7506; J7611; J7620; J7644

== ENCOUNTER 2017-12-15 14:11 | Outpatient (CLI) | payer OTHER | END 2017-12-15 14:12 | disposition home or self-care (01) | LOC: BICMAMMO 14:11 | PROVIDERS: ATTEND Family Medicine | DX: Z12.31 Encounter for screening mammogram for malignant neoplasm of breast (principal); R92.1 Mammographic calcification found on diagnostic imaging of breast; Z80.3 Family history of malignant neoplasm of breast | CPT/HCPCS: 77067 ==

== ENCOUNTER 2017-12-28 06:56 | Outpatient (CLI) | payer OTHER ==
--- NOTE | 2017-12-28 08:57 | ULT ---
ULTRASOUND ABDOMEN: HISTORY: Hepatomegaly and mid epigastric pain and cyclical vomiting. FINDINGS: The patient is post cholecystectomy. The liver demonstrates diffuse heterogenicity without definite focal mass or intrahepatic ductal dilatation. The spleen measures 12 cm in length. The common duct measures 5 mm in diameter. The kidneys and visualized portions of the pancreas, aorta, and IVC are u nremarkable. There is a tiny amount of free fluid around the liver. IMPRESSION: 1. Status post cholecystectomy. 2. Diffuse heterogeneity of the liver suggestive of hepatocellular disease. POS: [facility]
== END 2017-12-28 06:57 | disposition home or self-care (01) ==
LOC: SCSULT 06:56
PROVIDERS: ATTEND Internal Medicine Gastroenterology
DX: R16.0 Hepatomegaly, not elsewhere classified (principal); K76.89 Other specified diseases of liver
CPT/HCPCS: 76700

== ENCOUNTER 2018-08-10 02:39 | Inpatient (IN) | payer OTHER ==
[2018-08-10] MEDS ORDERED: methylPREDNISolone Sod Succ/PF 125 MG/2 ML VIAL ONE (03:08)
[2018-08-10 03:42] LABS: Bilirubin Small (Negative); Blood, Urine Large (Negative); Clarity TURBID (Clear); Glucose, Urine (Dipstick) Negative (Negative); Leukocyte Large (Negative); Nitrite Negative (Negative); Protein, Urine (Dipstick) 300 mg/dL (Neg-Trace); Specific Gravity, Urine 1.016 (1.002-1.036); pH, Urine 5.5 (5.0-9.0)
[2018-08-10 03:45] LABS: Bacteria/HPF 1+ HPF (None Seen); Hyaline Casts/LPF 4-6 HYALINE CAST LPF (0-3 Hyaline); Pathc Cast-AUWi Flag 1.55 (0-2.49); RBC/HPF GREATER THAN 50-TNTC HPF (0-3); Squamous Epithelial 0-3 HPF (0-3)
[2018-08-10 03:46] LABS: Yeast-AUWi Flag 28.2 (0-25.0)
[2018-08-10 03:56] LABS: Yeast-All Forms None Seen HPF (None Seen)
[2018-08-10] MEDS ORDERED: Hydrocortisone Sod Succ/PF 100 mg/2 ml Vial ONE (04:02)
[2018-08-10 04:28] LABS: #Basophils 0.1 thou/uL (0.0-0.2); #Eosinphils 0.1 thou/uL (0.0-0.7); #Lymphocytes 2.4 thou/uL (1.20-3.40); #Neutrophils 14.6 thou/uL (1.40-6.50); %Basophils 0.3 % (0.0-1.0); %Eosinophils 0.4 % (0.0-10.0); %Lymphocytes 13.3 % (21.0-51.0); %Monocytes 5.4 % (0.0-10.0); %Neutrophils 80.7 % (42.0-75.0); Hemoglobin 12.2 g/dL (12.0-16.0); Mean Corpuscular HGB CONC 30.2 g/dL (32.0-36.0); Mean Corpuscular Hemoglobin 24.1 pg (27.0-31.0); Mean Corpuscular Volume 79.8 fL (78.0-98.0); Mean Platelet Volume 9.6 fL (7.4-10.4); Platelet Count 185 thou/uL (130-400); RBC Distribution Width 17.9 % (11.5-14.5); Red Blood Cell (RBC) Count 5.04 mill/uL (4.20-5.40)
[2018-08-10 04:49] LABS: ALT (SGPT) Less than 7 U/L (8-55); AST (SGOT) 13 U/L (5-34); Albumin 3.2 g/dL (3.5-5.0); Alkaline Phosphatase 59 U/L (40-150); Anion Gap 15 mmol/L (10-20); BUN (Urea Nitrogen) 42 mg/dL (9.8-20.1); Bilirubin, Total 1.8 mg/dL (0.2-1.2); Calc. Creatinine Clearance 0 mL/min (70-130); Calcium 8.3 mg/dL (7.8-10.44); Carbon Dioxide 30 mmol/L (22-29); Chloride 93 mmol/L (98-107); Estimated GFR-MDRD 41; Globulin 2.9 g/dL (2.4-3.5); Glucose 132 mg/dL (70-105); Potassium 2.6 mmol/L (3.5-5.1); Protein, Total 6.1 g/dL (6.0-8.3); Sodium 135 mmol/L (136-145)
[2018-08-10 05:08] LABS: CKMB 0.6 ng/mL (0-6.6)
[2018-08-10] MEDS ORDERED: Norepinephrine 8 MG/0.9% NS 250 ML ONE (05:26)
--- NOTE | 2018-08-10 05:31 | PDOC.FPRHP ---
- History of Present Illness Chief Complaint: Fever History of Present Illness: Ms. Valdovinos presents to the ED after a week of body aches/chills and a tmax of 103 She reports increased SOB on her home 3L NC, nausea, dysuria and cloudiness to her urine. She denies any CP, SOB, vomiting, diarrhea, constipation, changes in vision. She has been taking her medications as prescribed and without any issues. recent weight gain of approx 16lbs. Reported HR elevating to the 17-180 range 1-2 a week for the past few months. She recently began straight catheterizing 3 weeks ago with some difficulty. She was having urinary retention symptoms and would force herself to urinate. She sees Dr. Izaguirre outpt and has had a stress test within 3-4 months that was reported to her as normal, echo over one year ago. She has seen Dr. Hatch outpatient, but it has been a few years. Last hospitalization was 1 year ago. ED Course: Duonebs, solumedrol, Levaquin, 30ml/kg NS, central line placed, pressures started CBC, CMP, trop, LA, CT abd/pelvis, CXR - Allergies/Adverse Reactions Allergies Allergy/AdvReac Type Severity Reaction Status Date / Time adhesive Allergy Verified 07/25/17 15:00 Penicillins Allergy Verified 07/25/17 15:00 pregabalin [From Lyrica] Allergy Verified 07/25/17 15:00 - Home Medications Medication Instructions Recorded Confirmed Type Bumetanide 2 mg PO BID 02/10/16 08/10/18 History Pravastatin Sodium 20 mg PO QPM 02/10/16 08/10/18 History Aspirin [Ecotrin Low Strength] 81 mg PO DAILY #0 tab 02/12/16 08/10/18 Rx ALButerol Sulfate [Ventolin Neb] 3 ml NEB TID 05/10/16 08/10/18 History Albuterol Sulfate [Proair HFA] 2 puff INH TID PRN 05/10/16 08/10/18 History DULoxetine HCl [Cymbalta] 30 mg PO BID 11/11/16 08/10/18 History Liraglutide [Victoza 2-Lion] 1.2 mg SC DAILY 11/11/16 08/10/18 History Tiotropium [Spiriva Handihaler] 18 mcg INH DAILY 11/11/16 08/10/18 History metFORMIN HCl 1,000 mg PO BID-WM 11/11/16 08/10/18 History Magnesium Oxide [Magnesium] 400 mg PO DAILY 12/18/16 08/10/18 History HYDROcodone/Acetaminophen 1 each PO QID PRN 01/06/17 08/10/18 History [Hydrocodone-Acetamin 10-325 mg] Potassium Chloride [K-Tab ER] 40 meq PO BID 01/06/17 08/10/18 History tiZANidine HCl [Tizanidine HCl] 2 tab PO HS 01/06/17 08/10/18 History Gabapentin 2 tab PO TID 07/25/17 08/11/18 History predniSONE [Prednisone] 10 mg PO DAILY #30 tablet 08/08/17 08/10/18 Rx Naloxegol Oxalate [Movantik] 08/11/18 History Varenicline Tartrate [Chantix] 08/11/18 History - History PMHx:ILD on 3L at home, CHF, GERD, cor pulmonale, PAD, HTN, DMII, Depression, Fibro, CHRIS PSHx: Tonsillectomy, appendectomy, cholecystectomy, ortho sgx FHx:NC Social:Smokes 1.5 ppd, history of OD, no current drugs/alcohol - Review of Systems General: reports: fever/chills, weight/appetite/sleep changes Eyes: denies: vision changes Respiratory: reports: cough, congestion, shortness of breath, exercise intolerance Cardiovascular: reports: palpitation, edema. denies: chest pain Gastrointestinal: reports: nausea, vomiting, abdominal pain. denies: diarrhea, constipation Genitourinary: reports: dysuria, other (hesitancy) Skin: denies: rashes, lesions Musculoskeletal: reports: pain, tenderness. denies: swelling Neurological: reports: numbness. denies: syncope, seizure Psychological: reports: depression - Vital signs BP: 96/55 HR: 96 RR: 16 Tmax: 98.5 Pox: 94% on 4L ventimask Wt: 78.47kg - Physical Exam Constitutional: NAD, awake, alert and oriented, other (speaking in full sentences) HEENT: normocephalic and atraumatic, grossly normal vision, grossly normal hearing, other (dry MM) Neck: supple, trachea midline, no LAD Chest: no-tender to palpation, no lesions Heart: RRR, normal S1/S2, no murmurs/rubs/gallops, pulses present, no edema Lungs: CTAB, no wheezing, other (poor air movement) Abdomen: soft, bowel sounds present, no masses/distention, other (tender in lower abdomen) Musculoskeletal: normal structure, normal tone, ROM grossly normal Neurological: no focal deficit, CN II-XII intact Skin: no rash/lesions, good turgor, capillary refill <2 seconds Heme/Lymphatic: no unusual bruising or bleeding Psychiatric: normal mood and affect FMR H&P: Results - Labs Result Diagrams: 08/13/18 07:58 08/14/18 04:16 Lab results: WBC 18.0 thou/uL (4.8-10.8) H 08/10/18 04:20 Hgb 12.2 g/dL (12.0-16.0) 08/10/18 04:20 Hct 40.2 % (36.0-47.0) 08/10/18 04:20 MCV 79.8 fL (78.0-98.0) 08/10/18 04:20 Plt Count 185 thou/uL (130-400) 08/10/18 04:20 Neutrophils % 80.7 % (42.0-75.0) H 08/10/18 04:20 Sodium 135 mmol/L (136-145) L 08/10/18 04:20 Potassium 2.6 mmol/L (3.5-5.1) L* 08/10/18 04:20 Chloride 93 mmol/L (98-107) L 08/10/18 04:20 Carbon Dioxide 30 mmol/L (22-29) H 08/10/18 04:20 BUN 42 mg/dL (9.8-20.1) H 08/10/18 04:20 Creatinine 1.34 mg/dL (0.6-1.1) H 08/10/18 04:20 Glucose 132 mg/dL (70-105) H 08/10/18 04:20 Lactic Acid 2.6 mmol/L (0.5-2.2) H 08/10/18 04:20 Calcium 8.3 mg/dL (7.8-10.44) 08/10/18 04:20 Total Bilirubin 1.8 mg/dL (0.2-1.2) H 08/10/18 04:20 AST 13 U/L (5-34) 08/10/18 04:20 ALT Less than 7 U/L (8-55) L 08/10/18 04:20 Alkaline Phosphatase 59 U/L (40-150) 08/10/18 04:20 CK-MB (CK-2) 0.6 ng/mL (0-6.6) 08/10/18 04:20 B-Natriuretic Peptide 796.8 pg/mL (0-100) H 08/10/18 04:20 Serum Total Protein 6.1 g/dL (6.0-8.3) 08/10/18 04:20 Albumin 3.2 g/dL (3.5-5.0) L 08/10/18 04:20 Urine Ketones Negative mg/dL (Negative) 08/10/18 03:19 Urine Blood Large (Negative) H 08/10/18 03:19 Urine Nitrite Negative (Negative) 08/10/18 03:19 Ur Leukocyte Esterase Large (Negative) H 08/10/18 03:19 Urine RBC GREATER THAN 50-TNTC HPF (0-3) H 08/10/18 03:19 Urine WBC Greater Than 50-TNTC HPF (0-3) H 08/10/18 03:19 Ur Squamous Epith Cells 0-3 HPF (0-3) 08/10/18 03:19 Urine Bacteria 1+ HPF (None Seen) H 08/10/18 03:19 FMR H&P: A/P - Problem List (1) Septic shock Current Visit: Yes Status: Resolved Code(s): A41.9 - SEPSIS, UNSPECIFIED ORGANISM; R65.21 - SEVERE SEPSIS WITH SEPTIC SHOCK (2) UTI (urinary tract infection) Current Visit: Yes Status: Acute Qualifiers: Urinary tract infection type: acute pyelonephritis Qualified Code(s): N10 - Acute pyelonephritis (3) CHF (congestive heart failure) Current Visit: Yes Status: Chronic Code(s): I50.9 - HEART FAILURE, UNSPECIFIED (4) Diabetes mellitus, type II Current Visit: No Status: Acute (5) Chronic lung disease Current Visit: No Status: Chronic Code(s): J98.4 - OTHER DISORDERS OF LUNG (6) Depression Current Visit: No Status: Chronic Code(s): F32.9 - MAJOR DEPRESSIVE DISORDER , SINGLE EPISODE, UNSPECIFIED Qualifiers: Depression Type: major depressive disorder Major depression episode severity: mild (7) Fibromyalgia Current Visit: No Status: Chronic (8) Hyperlipidemia Current Visit: No Status: Chronic Code(s): E78.5 - HYPERLIPIDEMIA, UNSPECIFIED (9) Hypertension Current Visit: No Status: Chronic Code(s): I10 - ESSENTIAL (PRIMARY) HYPERTENSION (10) Pulmonary hypertension Current Visit: No Status: Chronic Code(s): I27.2 - OTHER SECONDARY PULMONARY HYPERTENSION * DO NOT USE * (11) RADHA (acute kidney injury) Current Visit: No Status: Resolved Code(s): N17.9 - ACUTE KIDNEY FAILURE, UNSPECIFIED (12) Hypokalemia Current Visit: No Status: Resolved Code(s): E87.6 - HYPOKALEMIA - Plan Septic shock 2/2 UTI - hypotense, elevated WBC, lactic acidosis with +UA on admission, BCx drawn, procal pending - MAPs<60, central line place, pressors began in ED - continue levaquin + vanc, await sensitivities - hold IVF for now monitor vitals/pulmonary edema acute hypoxic respiratory failure - sats 80s% in ED, placed on 4L ventimask - wean as able, keeping sats>88% - continuous O2 monitoring - pulm consult, appreciate recs - ABG ordered RADHA - s/p IVF resuscitation - monitor CMP Hypokalemia - replenished in ED - monitor CMP Interstitial lung disease - aware, solumedrol in ED - continue home medications Congestive heart failure - BNP elevated>700 on admission - continue home medications - watchful IVF resuscitation - consider echo when stable PVD - aware, continue home meds - indeterminate trops, continue to trend, most likely demand ischemia DMII - continue home medications - Mild SSI HTN - hold home meds HLD - aware, continue home meds GERD - continue home meds MDD - continue home meds Code: full ppx: protonix, lovenox Disposition/LOS: admit to ccu, treat for UTI, monitor for improvement FMR H&P: Upper Level - Pertinent history 53 y/o F with significant PMH as above including a recent hx/o urinary retention and recent self-catheterizing. Feeling unwell for 1 week with fevers that have increased recently. Also noted dark, foul urine. Denies new chest pain , SOB, or leg edema. Does endorse abdominal distension and abdominal pain. She also states she has had palpitations recently, the most recent being 1w ago when her HR jumped to 180s. She does not report a history of a-fib or arrhythmia. - Pertinent findings Exam: GEN: NAD, on NRB FM CARDIO: No MRG, RRR LUNGS: CTAB, no wheezes, limited air movement. ABD: soft, nontender NEURO: A&O x3, slow answers and slightly impaired memory, but unsure of baseline - Plan Date/Time: 08/10/18 0527 I, Blaise Rain, have evaluated this patient and agree with findings/plan as outlined by internet application developer resident. Pertinent changes/additions are listed here. 1. Septic Shock 2/2 UTI S/p 3L IVF with MAP ~73. Is on Levophed through L IJ central catheter. Will continue broad spectrum abx, and likely urinary in origin. Will await cultures to narrow coverage. Critical care consult. Lactic Acid 2.6 and will trend. 2. Acute Renal Failure - Will continue to monitor after fluid repletion. Likely pre-renal 3-4 - Acute hypoxic respiratory failure She does have severe COPD on 3L O2 at home. She is on NRB currently; increased requirement likely 2/2/2 septic shock. Pulm/Crit consult. 5. CHF No active chest pain, SOB, or edema and does not seem to be in an acute exacerbation. BNP >700 which is near her baseline. Will continue to monitor. ECHO 12/13 shows EF 55% with septal dysfunction. Will order another. Mild troponin bump; will trend. 6. T2DM SSI insulin per hospital protocol 7. HTN Hold home medications 8. Hypokalemia Will replete and follow 9. PVD No acute issues 10. HLD On a statin 11. Tobacco abuse smoking cessation counseling Attending Addendum - Attending Addendum Date/Time: 08/10/18 0603 I personally evaluated the patient and discussed the management with Dr. Sky and Dr. Rain I agree with the History, Examination, Assessment and Plan documented above with any addition or exceptions noted below. 53 yo female with interstitial lung disease presents for evaluation of fever Patient reports multiple symptoms including N/V, SOB, fever (103), chills, malaise, dysuria, and change in urine. Recently began self-cathing. Denies any sick contacts. Notes a 6 lb weight gain over the past week. Has tried to monitor fluid intake and balance with lasix. VS reviewed. Labs reviewed. Imaging reviewed. Septic shock: Continue IVFs and pressors to maintain MAP of 65. Art line as needed. Trend lactic acid. Strict I/Os. Continue emperic antibiotics for urinary source. Trend procal. Send blood and urine cultures. No need for other cultures at this time. Monitor in ICU. Consult critical care. Pyelo: Based on CT scan, kidneys involved. Will need likely 14 day treatment but can trend procal. Cultures pending. Start with emperic coverage. Does not seem to be act risk for ESBL. Urinary retention requiring self-cathing: Will repeat education. Due to patient' s state of health will place bagley. Monitor closely. Likely source of infection. Interstitial lung disease: Appears to be very perfusion dependant. Requiring increase O2. Continue home meds. Schedule breathing treatments. Monitor in ICU. Pul consult. IV steroids given. Stable at present. Cor pulmonale: Monitor fluid status closely. Request records from cards for up dated ECHO. Adjust home meds. Monitor other co-morbid conditions. Luis Manuel
[2018-08-10] MEDS ORDERED: Magnesium 2 GM/50 ML BAG (IN WATER) ONE (05:40)
[2018-08-10] MEDS ORDERED: Ketorolac Tromethamine 30 MG/ML VIAL ONE (06:43)
[2018-08-10] MEDS ORDERED: Norepinephrine 8 MG/250 ML BAG IVPB PRN (07:26)
[2018-08-10] MEDS ORDERED: Dextrose 5% in Water 1,000 ML IV PRN (07:36)
[2018-08-10] MEDS ORDERED: Acetaminophen 325 MG TAB PO PRN (07:36)
[2018-08-10] MEDS ORDERED: Dextrose 50% Abboject 50 ML SYRINGE SLOW IVP PRN (07:36)
[2018-08-10] MEDS ORDERED: Norepinephrine 8 MG/0.9% NS 250 ML IVPB SCH (07:36)
[2018-08-10] MEDS ORDERED: Ondansetron PF 4 MG/2 ML Vial IVP PRN (07:36)
[2018-08-10] MEDS ORDERED: Ondansetron ODT 4 MG TAB PO PRN (07:36)
[2018-08-10 07:47] VITALS: BMI 31.2
[2018-08-10] MEDS ORDERED: Vancomycin HCl 500 MG in Sodium Chloride 0.9% 100 ML IVPB SCH (08:15)
--- NOTE | 2018-08-10 08:17 | RAD ---
PORTABLE UPRIGHT FRONTAL CHEST RADIOGRAPH: DATE: 08/10/2018. COMPARISON: 08/01/2017. HISTORY: Fever, dyspnea. FINDINGS: There is no pneumothorax or pleural fluid appreciated. Cardiac silhouette is prominent. Nonspecific diffuse increased linear interstitial density noted. These interstitial densities are similar when compared to a 01/31/2017 chest radiograph as well. IMPRESSION: Nonspecific stable increased linear interstitial density. POS: [facility]
--- NOTE | 2018-08-10 08:31 | RAD ---
PORTABLE SUPINE FRONTAL CHEST RADIOGRAPH: DATE: 08/10/2018. COMPARISON: 08/01/2017. HISTORY: Short of breath. FINDINGS: Supine imaging limits assessment for pneumothorax or pleural fluid. Stable nonspecific increased meagan ear interstitial density noted bilaterally. Left-sided vascular catheter present, distal tip overlyi ng the expected location of the SVC. Stable prominence of the cardiac silhouette. IMPRESSION: Stable diffuse nonspecific increased interstitial density. Left vascular catheter noted. POS: [facility]
[2018-08-10] MEDS: Potassium Chloride 20 MEQ in Premix Bag 1 BAG IVPB SCH ×2 (08:37→08:48)
[2018-08-10 08:38] LABS: Lactic Acid 2.1 mmol/L (0.5-2.2)
[2018-08-10] MEDS: Enoxaparin Sodium 40 MG/0.4 ML SYRINGE SC SCH (08:38)
--- NOTE | 2018-08-10 08:43 | RAD ---
PORTABLE CHEST: Date: 08/10/18 HISTORY: Sepsis. Comparison made to film at 0426 hours on 08/10/18. FINDINGS/IMPRESSION: Cardiomegaly. Interstitial prominence. Mild vascular engorgement. Central line has tip overlying SVC and unchanged. No acute interval change apparent. POS: [facility]
[2018-08-10 08:48] LABS: Troponin I 0.038 ng/mL (< 0.028)
[2018-08-10] MEDS ORDERED: Vancomycin HCl 1 GM in Sodium Chloride 0.9% 250 ML 250 ML IVPB SCH (09:00)
[2018-08-10] MEDS ORDERED: Iopamidol 370 76% 50 ML VIAL FS ONE (09:00)
--- NOTE | 2018-08-10 09:01 | CT ---
CT CHEST AND ABDOMEN AND PELVIS WITH IV CONTRAST: Multiple axial tomograms obtained through the chest, abdomen, and pelvis with IV enhancement. INDICATION: Fever. Body aches with chills. Right chest pain and abdominal pain. Septic shock. COMPARISON: Comparison is made to CT chest 12/26/[address] abdomen 04/22/2014. FINDINGS: CT CHEST: There are chronic lung parenchymal changes which appear stable when compared to 12/26/2016. There is parenchymal stranding in the left upper lobe extending into the pleural surface. There is no evidenc e of inflammatory infiltrate or effusion. Stranding in the anterior right middle lobe is also stable . Review of the mediastinum shows a central line in place via the left jugular with line in the innomin ate and tip of the line in the SVC. There is a tiny gas pocket within the innominate vein which woul d indicate air introduced at the time of this central line placement. Mild cardiomegaly. IMPRESSION: 1. There are chronic lung parenchymal changes which appear stable when compared to CT chest dated . 2. Tiny pocket of gas in the innominate vein indicates introduction of air during placement of centr al line. 3. No acute lung process. CT ABDOMEN AND PELVIS: Liver is mildly prominent in size but stable from the CT of 11/11/2016. Spleen upper normal size and stable. Pancreas unremarkable. There is edema in the retroperitoneum surrounding adrenal glands. There is perinephric edema and str anding on the right. Right kidney is edematous when compared to the CT of 11/11/2016. No hydronephrosis. There is stranding along the course of both ureters. The small bowel loops are normal caliber. Colon unremarkable. Prominent atherosclerotic changes are seen in the abdominal aorta. There is peripheral calcified debbie que and soft plaque which narrows the lumen of the abdominal aorta. Mild aneurysmal dilatation of th e proximal iliac arteries with common iliac artery stents. Calcified plaque and luminal narrowing of the external iliac arteries is noted. IMPRESSION: 1. Inflammatory haziness in the retroperitoneum surrounding both adrenal glands and extending into t he right retroperitoneum with perinephric edema and stranding. Mild edema of the right kidney. Infl ammatory stranding along the course of both ureters, more prominent on the right. Tiny amount of gas in the urinary bladder seen dependently along the anterior wall. Has there been recent bladder inst rumentation? This does not have the appearance of emphysematous cystitis; however, recommend clinica l correlation. 2. Hepatosplenomegaly with heterogeneous liver which has been previously described. 3. Diffuse atherosclerotic changes involving the abdominal aorta and iliac arteries as described. POS: [facility]
[2018-08-10] MEDS: HumaLOG 300 UNITS/3 ML VIAL SC PRN ×2 (09:56→20:34)
[2018-08-10] MEDS: HYDROcodone/Acetaminophen 10/325 mg Tablet PO PRN ×2 (11:54→18:52)
[2018-08-10 13:43] LABS: Troponin I 0.026 ng/mL (< 0.028)
--- NOTE | 2018-08-10 16:36 | CON ---
DATE OF CONSULTATION: 08/10/2018 CHIEF COMPLAINT: Fever. HISTORY OF PRESENT ILLNESS: This is a 53-year-old lady with past medical history of sarcoidosis, diastolic CHF, hypertension, diabetes mellitus 2, and fibromyalgia , who came in after having fever and myalgias over the last week and noticing dysuria and cloudiness in her urine. She came in and she was hypotensive in the ER. The patient was sating in the mid 80s on her normal oxygen saturation of 3L on nasal cannula, had to be pumped up to 10 L on a Ventimask when she was brought to the ICU. The patient has a history of difficulty urinating for the last [address] Sanchez for this and was supposed to start straight cathing herself, noted that she started having pain in the last few days when she was catheterizing herself. The patient was found to have UTI in the ER. A left IJ central line was placed and was started on Levophed to increase her pressures, at this time, she was bolused with 3 L fluids as well. PAST MEDICAL HISTORY: She has sarcoidosis and is on 3 L O2 nasal cannula at home, diastolic CHF, GERD, cor pulmonale, PAD, hypertension, diabetes mellitus type 2, depression, fibromyalgia, obstructive sleep apnea, and neurogenic bladder. PAST SURGICAL HISTORY: Tonsillectomy, appendectomy, cholecystectomy, and ortho surgeries. FAMILY HISTORY: Noncontributory. SOCIAL HISTORY: She smokes half per day. History of overdose in long past. No current, drug, or alcohol use reported. ALLERGIES: SHE IS ALLERGIC TO PENICILLINS, PREGABALIN, AND LYRICA. MEDICATIONS: Home medications consist of: 1. Bumetanide 2 mg p.o. b.i.d. 2. Lisinopril 2.5 mg p.o. daily. 3. Pravastatin 20 mg p.o. 4. Aspirin 81 mg daily. 5. Ventolin nebs t.i.d. 6. ProAir HFA 2 puffs inhaled t.i.d. p.r.n. 7. Cymbalta 20 mg p.o. b.i.d. 8. Victoza (liraglutide) 1.2 mg subcu daily. 9. Spiriva inhaler 18 mcg inhaler daily. 10. Metformin 1000 mg p.o. b.i.d. 11. Magnesium 400 mg p.o. daily. 12. Hydrocodone 10/325 one each p.o. q.i.d. p.r.n. for pain. 13. Potassium chloride 40 mEq p.o. b.i.d. 14. Tizanidine 2 tabs p.o. at bedtime. 15. Gabapentin 1 tab p.o. b.i.d. 16. Spironolactone 25 mg p.o. q.a.m. with meals. 17. Prednisone 10 mg p.o. daily. REVIEW OF SYSTEMS: GENERAL: The patient reported fever, chills, decreased appetite. EYES: Denied any vision changes. Reported having shortness of breath and little bit of cough. CARDIOVASCULAR: The patient denied any chest pain. The patient has reported getting tachycardic at times. Feeling like her heart rate is running up in the 180s. She is not currently feeling that right now. GI: Denies any nausea or vomiting. Does report generalized abdominal pain. Denies any diarrhea or constipation. GENITOURINARY: Reports dysuria, pain with self cath and having hard time urinating on her own. SKIN: Denies any rash or lesion. MUSCULOSKELETAL: Reports generalized pain from her fibromyalgia. NEUROLOGICAL: Denies syncope, seizures. Reports little bit of numbness. PHYSICAL EXAMINATION: VITAL SIGNS: Temperature was 98.0, blood pressure 103/61, respiratory rate 17, O2 sats were 92%. BiPAP 15/5. GENERAL: The patient is alert and oriented x3. The patient did not appear to be in any acute distress at this time. HEENT: Atraumatic, normocephalic. Eyes, noninjected. Throat, moist mucous membranes noted. NECK: No lymphadenopathy noted. LUNGS: There are bilateral crackles in the lower lobes bilaterally. No wheezing noted. No rales noted. Good symmetric chest expansion. CARDIOVASCULAR: Regular rate and rhythm. No murmurs or gallops. ABDOMEN: She has some mild pain to palpation in all quadrants of the abdomen. She does have right-sided CVA tenderness. No masses noted. No distention noted. EXTREMITIES: Moves all extremities. No swelling. No edema noted. NEUROLOGICAL: No focal neuro deficit noted. SKIN: No rashes. No bruising. Good skin turgor. LABORATORY DATA: White blood cell count 18.0, hemoglobin 12.2, hematocrit 40.2, platelets 185, neutrophils percent 80.7, neutrophil number 14.6. Chemistry: Sodium 135, potassium 2.6, chloride 93, carbon dioxide 30, creatinine 1.34, glucose 132. Lactic acid was 2.6, downtrended to 1.1. Total bilirubin 1.8, AST 13, ALT 7. CK-MB 0.6, troponin 0.031, BNP 796.8, albumin 3.2, procalcitonin 1.62. She had a chest x-ray on 08/10/2018, which showed nonspecific, stable, increased , linear interstitial density. On 08/10/2018, she had a repeat chest x-ray couple of hours later, still with diffuse, nonspecific increase in interstitial density, left vascular catheter noted. She had a chest, abdomen, and pelvis CT on 08/12/2018 which showed: 1. Chronic lung parenchymal changes, which appear stable compared to CT in 2017. 2. Tiny pocketed gas in the innominate vein indicates introduction of air during placement of central line. 3. No acute lung process. 4. She has inflammatory haziness in the retroperitoneum, surrounding with both adrenal glands extending into the right retroperitoneum with perinephric edema and stranding, mild edema of the right kidney, inflammatory stranding along the course of both ureters, more prominent on the right. Tiny amount of gas in the urinary bladder is seen along the anterior wall. This does not have the appearance of emphysematous cystitis, however, recommended clinical correlation. 5. Hepatosplenomegaly with heterogeneous liver which has been previously described. 6. Diffuse atherosclerotic change involving the abdominal aorta and iliac arteries as described. ASSESSMENT: 1. Septic shock, secondary to urinary tract infection/pyelonephritis. 2. Acute on chronic respiratory failure. 3. Acute kidney injury. 4. Hypokalemia. 5. Sarcoidosis. 6. Diastolic congestive heart failure. 7. Peripheral vascular disease. 8. Diabetes mellitus, type 2. 9. Hypertension. 10. Hyperlipidemia. 11. Gastroesophageal reflux disease. 12. Major depressive disorder. PLAN: At this time, the patient is on vancomycin and Levaquin antibiotic coverage. We got urine cultures, blood cultures. We will adjust antibiotics as they grow out. The patient is on a Levophed drip at a rate of 5 right now. We will continue to wean to maintain pressures with the MAP above 60. The patient was given 3 L of fluid boluses in the ER with her history of CHF. We will continue just with Levophed drip and we will hold off on fluid resuscitation. Watch her pressures as needed. Moore catheter was inserted as the patient has UTI probably from retained urine and is not able to urinate herself. We will replace the patient's potassium as it is low at 2.6. The patient reports not taking her potassium in the last few days due to feeling ill, and is on 2 diuretics, likely cause of decrease. We will get an echocardiogram as the patient's BNP is more elevated than it has ever been at previous visits and chest x-ray showed a little bit of congestion. The patient is on BiPAP right now, sating 92%. We will wean off BiPAP as tolerated. Normally , she is on 3 L nasal cannula at home. 70 minutes have been devoted to this patient in various activities. I personally reviewed all imaging studies and laboratory data noted within this document. For fifty percent of this time, I was interacting with the patient at the bedside or coordinating care with the care team. For the remainder of the time I was immediately available to the patient in the hospital unit. Job ID: [id number]
[2018-08-10] MEDS: Gabapentin 300 MG CAP PO SCH (20:36)
[2018-08-10] MEDS: DULoxetine 30 MG CAP PO SCH (20:36)
[2018-08-10] MEDS: Atorvastatin Calcium 10 MG TAB PO SCH (20:56)
[2018-08-11] MEDS: HYDROcodone/Acetaminophen 10/325 mg Tablet PO PRN ×5 (00:16→22:09)
[2018-08-11] MEDS ORDERED: tiZANidine HCl 4 MG TAB PO SCH (00:30)
[2018-08-11] MEDS: tiZANidine HCl 4 MG TAB PO SCH ×2 (00:35→22:08)
[2018-08-11 04:40] LABS: #Basophils 0.1 thou/uL (0.0-0.2); #Eosinphils 0.1 thou/uL (0.0-0.7); #Lymphocytes 2.5 thou/uL (1.20-3.40); #Monocytes 0.7 thou/uL (0.11-0.59); #Neutrophils 10.9 thou/uL (1.40-6.50); %Basophils 0.5 % (0.0-1.0); %Eosinophils 0.6 % (0.0-10.0); %Lymphocytes 17.3 % (21.0-51.0); %Monocytes 5.2 % (0.0-10.0); %Neutrophils 76.5 % (42.0-75.0); Hemoglobin 11.3 g/dL (12.0-16.0); Mean Corpuscular HGB CONC 30.6 g/dL (32.0-36.0); Mean Corpuscular Hemoglobin 24.4 pg (27.0-31.0); Mean Corpuscular Volume 79.6 fL (78.0-98.0); Mean Platelet Volume 10.8 fL (7.4-10.4); Platelet Count 178 thou/uL (130-400); RBC Distribution Width 17.8 % (11.5-14.5); Red Blood Cell (RBC) Count 4.65 mill/uL (4.20-5.40); White Blood Cell (WBC) Count 14.3 thou/uL (4.8-10.8)
[2018-08-11 04:54] LABS: ALT (SGPT) 7 U/L (8-55); AST (SGOT) 13 U/L (5-34); Albumin 3.2 g/dL (3.5-5.0); Alkaline Phosphatase 65 U/L (40-150); Anion Gap 11 mmol/L (10-20); BUN (Urea Nitrogen) 43 mg/dL (9.8-20.1); Calc. Creatinine Clearance 76 mL/min (70-130); Calcium 8.7 mg/dL (7.8-10.44); Carbon Dioxide 32 mmol/L (22-29); Chloride 94 mmol/L (98-107); Estimated GFR-MDRD 51; Globulin 3.2 g/dL (2.4-3.5); Glucose 179 mg/dL (70-105); Protein, Total 6.4 g/dL (6.0-8.3); Sodium 134 mmol/L (136-145)
[2018-08-11 04:58] LABS: Potassium 2.9 mmol/L (3.5-5.1)
[2018-08-11] MEDS ORDERED: Potassium Chloride 20 MEQ TAB PO SCH ×2 (05:30→06:45)
[2018-08-11] MEDS: HumaLOG 300 UNITS/3 ML VIAL SC PRN ×3 (05:48→16:06)
[2018-08-11] MEDS: Vancomycin HCl 1.5 GM in Sodium Chloride 0.9% 250 ML 300 ML IVPB SCH (05:49)
[2018-08-11] MEDS ORDERED: Potassium Chloride 20 MEQ in Premix Bag 1 BAG IVPB SCH (06:00)
[2018-08-11] MEDS: Gabapentin 300 MG CAP PO SCH ×2 (08:15→22:09)
[2018-08-11] MEDS: DULoxetine 30 MG CAP PO SCH ×2 (08:15→22:08)
[2018-08-11] MEDS: Aspirin 81 mg Enteric Coated Tablet PO SCH (08:15)
[2018-08-11] MEDS: Enoxaparin Sodium 40 MG/0.4 ML SYRINGE SC SCH (08:15)
[2018-08-11] MEDS ORDERED: Non-Formulary Item 1 EACH (Varenicline Tartrate [Chantix] 1 MG) PO SCH (09:00)
--- NOTE | 2018-08-11 09:05 | PDOC.FM ---
- Subjective Subjective: Pt reports feeling much better this morning. Pt reports still feeling some pain and fullness in belly. Pt denies any n/v/d/c. Pt denies any acute SOB. Denies any acute events overnight. Pt is wondering if she can take her home chantix. Pt denies any fever or chills. Denies any chest pain. No concerns from night nursing team. - Objective Vital Signs & Weight: Vital Signs (12 hours) Temp Pulse Resp Pulse Ox 08/11/18 07:40 89 L 08/11/18 07:00 99.2 F 08/11/18 06:46 89 L 08/11/18 06:43 104 H 21 H 90 L 08/11/18 00:49 90 L 08/11/18 00:00 98.3 F 08/10/18 23:11 97 18 94 L Weight Weight 82.1 kg Most Recent Monitor Data Heart Rate from ECG 101 NIBP 100/59 NIBP BP-Mean 72 Respiration from ECG 25 SpO2 89 I&O: 08/10/18 08/11/18 08/12/18 06:59 06:59 06:59 Intake Total 2764.4 Output Total 1655 130 Balance 1109.4 -130 Result Diagrams: 08/11/18 04:00 08/11/18 04:00 Radiology Reviewed by me: Yes Radiology: 08/10 ECHO shows EF 55-60%. Shows diastolic dysfunction. [id number] Aortic valve sclerotic. Shows moderate aortic regurg and severe tricuspid regurg <Harry Holland - Last Filed: 08/11/18 09:17> - Objective Vital Signs & Weight: Vital Signs (12 hours) Temp Pulse Resp Pulse Ox 08/11/18 07:40 89 L 08/11/18 07:00 99.2 F 08/11/18 06:46 89 L 08/11/18 06:43 104 H 21 H 90 L 08/11/18 00:49 90 L 08/11/18 00:00 98.3 F Weight Weight 82.1 kg Most Recent Monitor Data Heart Rate from ECG 106 NIBP 118/64 NIBP BP-Mean 82 Respiration from ECG 37 SpO2 89 I&O: 08/10/18 08/11/18 08/12/18 06:59 06:59 06:59 Intake Total 2764.4 Output Total 1655 305 Balance 1109.4 -305 Result Diagrams: 08/11/18 04:00 08/11/18 04:00 <Julio Bradshaw - Last Filed: 08/11/18 11:50> Phys Exam - Physical Examination Constitutional: NAD HEENT: PERRLA, moist MMs Neck: no nodes, no JVD, supple, full ROM Has some mild rales. No wheezing noted Cardiovascular: no significant murmur, no rub Regular rhythm. Pt tachycardic Gastrointestinal: soft, non-tender, positive bowel sounds Mildly distended Musculoskeletal: no edema, pulses present Neurological: non-focal, normal sensation, moves all 4 limbs Psychiatric: normal affect, A&O x 3 Skin: no rash, normal turgor, cap refill <2 seconds <Harry Holland - Last Filed: 08/11/18 09:17> Dx/Plan (1) Septic shock Code(s): A41.9 - SEPSIS, UNSPECIFIED ORGANISM; R65.21 - SEVERE SEPSIS WITH SEPTIC SHOCK Status: Resolved (2) UTI (urinary tract infection) Status: Acute Qualifiers: Urinary tract infection type: acute pyelonephritis Qualified Code(s): N10 - Acute pyelonephritis (3) CHF (congestive heart failure) Code(s): I50.9 - HEART FAILURE, UNSPECIFIED Status: Chronic (4) Diabetes mellitus, type II Status: Acute (5) Sarcoidosis of lung Code(s): D86.0 - SARCOIDOSIS OF LUNG Status: Acute (6) Chronic lung disease Code(s): J98.4 - OTHER DISORDERS OF LUNG Status: Chronic (7) Fibromyalgia Status: Chronic (8) Hypertension Code(s): I10 - ESSENTIAL (PRIMARY) HYPERTENSION Status: Chronic (9) PVD (peripheral vascular disease) with claudication Code(s): I73.9 - PERIPHERAL VASCULAR DISEASE, UNSPECIFIED Status: Chronic (10) Depression Code(s): F32.9 - MAJOR DEPRESSIVE DISORDER, SINGLE EPISODE, UNSPECIFIED Status : Chronic Qualifiers: Depression Type: major depressive disorder Major depression episode severity: mild (11) Tobacco abuse counseling Code(s): Z71.6 - TOBACCO ABUSE COUNSELING Status: Acute - Plan Plan: Septic shock 2/2 UTI (septic shock resolved) - hypotense, elevated WBC, lactic acidosis with +UA on admission, BCx drawn, MAPs<60s had central line placed and started on pressors. Pt has been weaned off pressers - continue levaquin + vanc, Will await blood cx. Likely can d/c vanc and await urine cx - Pt maintaing BP. acute hypoxic respiratory failure - Pt normally wears 3L NC at home due to Sarcoidosis. Pt on 5 L NC this morning. will continue to [facility]. -Pulmonology Consulted- Dr. Crabtree- follow recs -duonebs Q6hrs -Started pt back on home prednisone 10mg daily. RADHA - s/p IVF resuscitation in ER. Have been holding fluids due to CHF. - Cr trending down. Continue to monitor BMP Hypokalemia - Pt potassium still low. Replaced with IV K and oral K this morning. Will recheck BMP later today and continue to replace as needed. Interstitial lung disease -Pt told in past due to sarcoidoisis - aware, solumedrol in ED - continue home medications Congestive heart failure - BNP elevated>700 on admission -Holding diuretics at this time until potassium and blood pressure more stable. Will want to start as soon as can. - ECHO shows diastolic dysfunction. Severe tricuspid regurgitation. Moderate Aortic Regurgitation. Appears to be somewhat stable from last years echo in 2017. -Trops indeterminate, trended down. Likely due to demand ischemia PVD - aware, continue home meds DMII - continue home medications - Mild SSI HTN - hold home meds. BP still low today HLD - aware, continue home meds GERD - continue home meds MDD - continue home meds Tobacco Abuse -Pt trying to quit smoking. taking chantix daily. Advised to bring meds in as hospital doesn't have -Will put on nicotine patch at this time -counseled to continue with good work on quitting <Harry Holland - Last Filed: 08/11/18 09:17> Attending Addendum - Attending Addendum Date/Time: 08/11/18 1680 I personally evaluated the patient and discussed the management with Dr. Holland. I agree with and repeated the History, Examination, Assessment and Plan documented above with any addition or exceptions noted below. Patient with shortness of breath this AM but overall feeling better. Sepsis continue antibiotics. HFpEF and ILD steroid dependent. +HJR today and more distended abdomen. Will plan on restarting bumex at a lower dose and continuing stress dose steroids. HypoK. replete and recheck HypoNa. 2/2 above comorbidities Azotemia. No suspicion of UGIB. Difficult place in terms of fluid status. Monitor closely. DVT/GI ppx. <Julio Bradshaw - Last Filed: 08/11/18 11:50>
[2018-08-11] MEDS: Nicotine 21 MG PATCH TD SCH (09:13)
[2018-08-11] MEDS: Varenicline Tartrate 0.5 MG TAB PO SCH (09:57)
[2018-08-11] MEDS: predniSONE 20 MG TAB PO SCH (10:02)
--- NOTE | 2018-08-11 10:50 | PQF ---
LADAN LYNCH KENNETH *r [id number] CLINICAL DOCUMENTATION IMPROVEMENT CLARIFICATION FORM: ICD-10 Updated PLEASE DO AN ADDENDUM TO THE PROGRESS NOTE WITH ANY DOCUMENTATION UPDATES OR ADDITIONS AND CARRY THROUGH TO DC SUMMARY. THANK YOU. DATE: 08/11, , ATTN: DR. KENNETH DANIELLE/ DR.RANDALL ZIMMERMAN Please exercise your independent, professional judgment in responding to the clarification form. Clinical indicators are provided on the bottom of this form for your review. Please check appropriate box(s): UTI please specify if due to or related to (as applicable): [ x ] Self-catheterization [ ] Not D/T self- catheterization [ ] Other diagnosis [ ] Unable to determine For continuity of documentation, please document condition throughout progress notes and discharge summary. Thank You. CLINICAL INDICATORS - SIGNS / SYMPTOMS / LABS URINALYSIS: LARGE LEUKOCYTE ESTERASE, WBC TNTC, 1+ BACTERIA URINE CX: E COLI H&P DOCUMENTATION 08/10: HX OF PRESENT ILLNESS: ...SHE RECENTLY BEGAN STRAIGHT CATHETERIZING 3 WKS AGO W/SOME DIFFICULTY. SHE WAS HAVING URINARY RETENTION SYMPTOMS & WOULD HAVE TO FORCE HERSELF TO URINATE. PROBLEM LIST: 1) SEPTIC SHOCK; 2) UTI; PLAN: SEPTIC SHOCK 2/2 UTI RISK FACTOR: RECENTLY BEGAN SELF-CATHETERIZATIONS SEPTIC SHOCK 2/2 UTI HX NEUROGENIC BLADDER TREATMENT: IV ANTIBIOTICS (LEVAQUIN, VANCOMYCIN 08/10 - PRESENT) INSERTION OF BARRETT CATHETER IN ED (08/10) THANK YOU! Narda (This form is maintained as a part of the permanent medical record) 2014 [employer]. All Rights Reserved Narda Manzo RN, BSN [email or web address] Office: [phone] [facility]
[2018-08-11] MEDS: PROVENTIL INHALER 6.7 G (200 INHALATIONS) INH SCH ×2 (11:17→19:42)
[2018-08-11 13:32] LABS: Anion Gap 13 mmol/L (10-20); BUN (Urea Nitrogen) 39 mg/dL (9.8-20.1); Calc. Creatinine Clearance 79 mL/min (70-130); Calcium 8.8 mg/dL (7.8-10.44); Carbon Dioxide 29 mmol/L (22-29); Chloride 95 mmol/L (98-107); Estimated GFR-MDRD 55; Glucose 180 mg/dL (70-105); Potassium 3.8 mmol/L (3.5-5.1); Sodium 133 mmol/L (136-145)
[2018-08-11] MEDS: metFORMIN 500 MG TAB PO SCH (16:06)
[2018-08-11] MEDS: Atorvastatin Calcium 10 MG TAB PO SCH (22:06)
[2018-08-11] MEDS: Bumetanide 1 MG TAB PO SCH (22:08)
[2018-08-11] MEDS ORDERED: Pravastatin Sodium 20 MG TAB PO SCH (22:30)
--- NOTE | 2018-08-12 01:37 | CON ---
DATE OF CONSULTATION: HISTORY OF PRESENT ILLNESS: Ms. Valdovinos is a 53-year-old female well known to me. She has respiratory bronchiolitis associated with her smoking as well as chronic obstructive pulmonary disease. She presented with complaints of nausea, vomiting, and diarrhea. Subsequently, she was admitted to the critical care unit for hypertension, but pressors have been weaned off. She has always been a heavy smoker, but tells me that she has not smoked in 2 weeks. When I last saw her in the hospital, it was the end of 2017. At that time, she was drinking 2 gallons of Diet Coke a day ("7 bottles of Coke a day") according to the . She also drank extremely large amounts of water. She has a long history of medical noncompliance, and every time I question the issues surrounding her health care, she has an excuse. Last we did a surgical lung biopsy on her many years ago because of progressive interstitial infiltrates leading to the diagnosis of respiratory bronchiolitis. She is followed primarily by the [facility] physicians. She states she is feeling better. PAST MEDICAL HISTORY: Remarkable for lipid disorder, hypertension, diabetes, sleep apnea, chronic respiratory failure. She has been a 7-wvlc-y-day smoker inspite of oxygen therapy at home for many, many years. She says she has not smoked in 2 weeks. ALLERGIES: SHE REPORTS PREGABALIN, PENICILLIN, AND TAPE ALLERGIES. FAMILY HISTORY: Negative for lung disease in early age. SOCIAL HISTORY: She has a very supportive , who gets very frustrated with her inability to do what is necessary for the day. Continue down the road. He was not at the bedside when I saw her today. REVIEW OF SYSTEMS: Ten-point review of systems otherwise negative. PHYSICAL EXAMINATION: VITAL SIGNS: Heart rate is 98, respiratory rate is 18, oximetry is 88% on 4 L cannula, and blood pressure 107/58. HEENT: Pupils are equal. Sclerae are anicteric. NECK: Supple. LUNGS: Remarkable for coarse equal breath sounds. HEART: Regular rhythm. S1 and S2 are normal. ABDOMEN: Soft and nontender. EXTREMITIES: Without clubbing, cyanosis, or edema. She tells me she recently diuresed over 50 pounds. IMPRESSION: 1. Near end-stage chronic obstructive pulmonary disease with chronic respiratory failure, on home oxygen. 2. Respiratory bronchiolitis. 3. Obesity. 4. Sleep apnea. 5. Long history of medical noncompliance. 6. Hypertension. 7. Lipid disorder. 8. Diabetes. 9. Steroid dependence. The last time I saw her she was on 20 mg a day of prednisone and was dialing her prednisone up and down as she saw necessary. She appears to be stable to move out of the critical care unit in my opinion. Cultures have been reviewed and are negative so far with the exception of E coli isolated from her urine. Job ID: [id number]
[2018-08-12] MEDS: HYDROcodone/Acetaminophen 10/325 mg Tablet PO PRN ×3 (04:20→18:11)
[2018-08-12 06:40] LABS: Vancomycin, Trough 9.4 ug/mL
[2018-08-12] MEDS: PROVENTIL INHALER 6.7 G (200 INHALATIONS) INH SCH ×3 (06:40→20:03)
[2018-08-12] MEDS: Vancomycin HCl 1.5 GM in Sodium Chloride 0.9% 250 ML 300 ML IVPB SCH (07:23)
[2018-08-12] MEDS ORDERED: VANCOMYCIN IVPB PRN (07:48)
[2018-08-12] MEDS ORDERED: Vancomycin HCl 1 GM in Premix Bag 1 BAG IVPB SCH (08:00)
[2018-08-12] MEDS ORDERED: Vancomycin HCl 1.5 GM in Sodium Chloride 0.9% 250 ML 300 ML IVPB SCH (08:00)
[2018-08-12 08:36] LABS: #Basophils 0.1 thou/uL (0.0-0.2); #Eosinphils 0.1 thou/uL (0.0-0.7); #Lymphocytes 1.5 thou/uL (1.20-3.40); #Monocytes 0.7 thou/uL (0.11-0.59); #Neutrophils 5.7 thou/uL (1.40-6.50); %Basophils 0.7 % (0.0-1.0); %Eosinophils 1.2 % (0.0-10.0); %Monocytes 8.3 % (0.0-10.0); %Neutrophils 70.8 % (42.0-75.0); Hemoglobin 11.6 g/dL (12.0-16.0); Mean Corpuscular HGB CONC 30.2 g/dL (32.0-36.0); Mean Corpuscular Hemoglobin 24.1 pg (27.0-31.0); Mean Corpuscular Volume 79.9 fL (78.0-98.0); Mean Platelet Volume 11.6 fL (7.4-10.4); Platelet Count 164 thou/uL (130-400); RBC Distribution Width 18.2 % (11.5-14.5); Red Blood Cell (RBC) Count 4.81 mill/uL (4.20-5.40)
[2018-08-12 08:44] LABS: Anion Gap 13 mmol/L (10-20); BUN (Urea Nitrogen) 33 mg/dL (9.8-20.1); Calc. Creatinine Clearance 94 mL/min (70-130); Carbon Dioxide 31 mmol/L (22-29); Chloride 96 mmol/L (98-107); Estimated GFR-MDRD 66; Glucose 110 mg/dL (70-105); Potassium 3.1 mmol/L (3.5-5.1); Sodium 137 mmol/L (136-145)
[2018-08-12] MEDS ORDERED: Potassium Chloride 20 MEQ TAB PO SCH (09:00)
[2018-08-12] MEDS: Enoxaparin Sodium 40 MG/0.4 ML SYRINGE SC SCH (09:31)
[2018-08-12] MEDS: Gabapentin 300 MG CAP PO SCH ×2 (09:31→20:16)
[2018-08-12] MEDS: Bumetanide 1 MG TAB PO SCH ×2 (09:31→20:15)
[2018-08-12] MEDS: Varenicline Tartrate 0.5 MG TAB PO SCH (09:31)
[2018-08-12] MEDS: predniSONE 20 MG TAB PO SCH (09:32)
[2018-08-12] MEDS: DULoxetine 30 MG CAP PO SCH ×2 (09:32→20:16)
[2018-08-12] MEDS: Aspirin 81 mg Enteric Coated Tablet PO SCH (09:32)
[2018-08-12] MEDS: metFORMIN 500 MG TAB PO SCH ×2 (09:32→17:55)
[2018-08-12] MEDS: Nicotine 21 MG PATCH TD SCH (09:33)
--- NOTE | 2018-08-12 10:41 | PDOC.FM ---
- Subjective Subjective: pt reports doing well this morning. Pt denies any fever or chills. Denies any acute events overnight. Pt on 3L NC O2 and sating in 90's. Pt denies any acute swelling. Pt up and eating. Tolerating PO. - Objective MAR Reviewed: Yes Vital Signs & Weight: Vital Signs (12 hours) Temp Pulse Resp BP BP BP Pulse Ox 08/12/18 08:03 99.0 F 115 H 18 102/55 L 85 L 08/12/18 06:44 90 L 08/12/18 06:40 98 20 08/12/18 04:00 98.6 F 104 H 16 116/68 92 L 08/12/18 00:35 80 20 90 L 08/11/18 23:40 98.9 F 75 20 83/53 L 92 L Weight Weight 82.1 kg Most Recent Monitor Data Heart Rate from ECG 103 NIBP 118/82 NIBP BP-Mean 94 Respiration from ECG 18 SpO2 88 I&O: 08/11/18 08/12/18 08/13/18 06:59 06:59 06:59 Intake Total 2764.4 240 Output Total 1655 1994 Balance 1109.4 -1755 Result Diagrams: 08/12/18 06:20 08/12/18 06:20 Radiology Reviewed by me: Yes Radiology: No new imaging to review Phys Exam - Physical Examination Constitutional: NAD HEENT: PERRLA, oral pharynx no lesions Neck: no nodes, no JVD, supple, full ROM Respiratory: no wheezing, no rales Some mild crackles noted Cardiovascular: RRR, no significant murmur, no rub Gastrointestinal: soft, positive bowel sounds Mildly distended Musculoskeletal: no edema, pulses present Neurological: non-focal, moves all 4 limbs Psychiatric: normal affect, A&O x 3 Skin: no rash, normal turgor, cap refill <2 seconds Dx/Plan (1) Septic shock Code(s): A41.9 - SEPSIS, UNSPECIFIED ORGANISM; R65.21 - SEVERE SEPSIS WITH SEPTIC SHOCK Status: Resolved (2) UTI (urinary tract infection) Status: Acute Qualifiers: Urinary tract infection type: acute pyelonephritis Qualified Code(s): N10 - Acute pyelonephritis (3) CHF (congestive heart failure) Code(s): I50.9 - HEART FAILURE, UNSPECIFIED Status: Chronic (4) Diabetes mellitus, type II Status: Acute (5) Sarcoidosis of lung Code(s): D86.0 - SARCOIDOSIS OF LUNG Status: Acute (6) Chronic lung disease Code(s): J98.4 - OTHER DISORDERS OF LUNG Status: Chronic (7) Fibromyalgia Status: Chronic (8) Hypertension Code(s): I10 - ESSENTIAL (PRIMARY) HYPERTENSION Status: Chronic (9) PVD (peripheral vascular disease) with claudication Code(s): I73.9 - PERIPHERAL VASCULAR DISEASE, UNSPECIFIED Status: Chronic (10) Depression Code(s): F32.9 - MAJOR DEPRESSIVE DISORDER, SINGLE EPISODE, UNSPECIFIED Status : Chronic Qualifiers: Depression Type: major depressive disorder Major depression episode severity: mild (11) Tobacco abuse counseling Code(s): Z71.6 - TOBACCO ABUSE COUNSELING Status: Acute (12) Hypokalemia Code(s): E87.6 - HYPOKALEMIA Status: Acute - Plan Plan: Septic shock 2/2 UTI (septic shock resolved) - hypotense, elevated WBC, lactic acidosis with +UA on admission, MAPs<60s had central line placed and started on pressors. Pt has been weaned off pressers -Blood cx NGTD Urine cx- E. coli snes to levaquin - d/c vancomycin today as blood cx neg. Continue on levaquin - Pt maintaing BP. acute hypoxic respiratory failure - Pt normally wears 3L NC at home due to Sarcoidosis. Pt on 3 L NC this morning. will continue to [facility]. -Pulmonology Consulted- Dr. Crabtree- follow recs -duonebs Q6hrs -Started pt back on home prednisone 10mg daily. Hypokalemia - Pt potassium still low. Replaced with IV K and oral K this morning. Will recheck BMP later today and continue to replace as needed. Interstitial lung disease -Pt told in past due to sarcoidoisis - aware, solumedrol in ED - continue home medications -Continue sabrina steroids. Congestive heart failure - BNP elevated>700 on admission -Started on home bumex. - ECHO shows diastolic dysfunction. Severe tricuspid regurgitation. Moderate Aortic Regurgitation. Appears to be somewhat stable from last years echo in 2017. -Trops indeterminate, trended down. Likely due to demand ischemia RADHA (Resolved) - s/p IVF resuscitation in ER. - Cr trending down. Continue to monitor BMP PVD - aware, continue home meds DMII - continue home medications - Mild SSI HTN - hold home meds. BP still low today HLD - aware, continue home meds GERD - continue home meds MDD - continue home meds Tobacco Abuse -Pt trying to quit smoking. Continue home chantix at this time.
--- NOTE | 2018-08-12 17:25 | PRG ---
DATE OF SERVICE: 08/12/2018 SUBJECTIVE: Chyna Valdovinos says she is feeling better. She apparently went outside with her last night, got locked out of the hospital and had to come in through the emergency room. She denies going outside to smoke. OBJECTIVE: VITAL SIGNS: She is afebrile. Heart rate is 110, respiratory rate 18, and oximetry is in the high 80s on nasal cannula. VITAL SIGNS: Blood pressure 124/57. LUNGS: Clear and distant. HEART: Regular rhythm. ABDOMEN: Soft. LABORATORY DATA: White count is 8, hemoglobin 11.6, platelets 164. Sodium 137, potassium 3.1, chloride 96, bicarb 31, BUN , creatinine 0.89. IMPRESSION: 1. Myaun-uw-qfyupyc respiratory failure, on home oxygen. 2. Underlying very severe obstructive lung disease. 3. Respiratory bronchiolitis related to her smoking, biopsy-proven. 4. Long history of heavy tobacco use. 5. Steroid dependence. 6. History of hypertension. 7. History of diabetes. 8. History of sleep apnea. 9. History of lipid disorder. 10. Penicillin allergy. PLAN: Continue supportive care. She probably needs more than 10 mg a day of prednisone. This should be tapered gradually back down to her baseline over two weeks. Job ID: [id number] [facility]
[2018-08-12] MEDS: Pravastatin Sodium 20 MG TAB PO SCH (20:16)
[2018-08-12] MEDS: tiZANidine HCl 4 MG TAB PO SCH (20:17)
[2018-08-12] MEDS ORDERED: Gabapentin 300 MG CAP PO SCH (21:45)
[2018-08-13] MEDS: HYDROcodone/Acetaminophen 10/325 mg Tablet PO PRN ×4 (04:17→22:05)
[2018-08-13] MEDS: PROVENTIL INHALER 6.7 G (200 INHALATIONS) INH SCH ×3 (06:19→18:49)
[2018-08-13 08:20] LABS: #Basophils 0.1 thou/uL (0.0-0.2); #Eosinphils 0.2 thou/uL (0.0-0.7); #Lymphocytes 2.5 thou/uL (1.20-3.40); #Monocytes 0.7 thou/uL (0.11-0.59); #Neutrophils 4.8 thou/uL (1.40-6.50); %Basophils 0.7 % (0.0-1.0); %Eosinophils 1.8 % (0.0-10.0); %Lymphocytes 30.4 % (21.0-51.0); %Monocytes 8.8 % (0.0-10.0); %Neutrophils 58.3 % (42.0-75.0); Hemoglobin 11.1 g/dL (12.0-16.0); Mean Corpuscular HGB CONC 29.6 g/dL (32.0-36.0); Mean Corpuscular Hemoglobin 23.3 pg (27.0-31.0); Mean Corpuscular Volume 78.9 fL (78.0-98.0); Mean Platelet Volume 9.7 fL (7.4-10.4); Platelet Count 168 thou/uL (130-400); RBC Distribution Width 17.9 % (11.5-14.5); Red Blood Cell (RBC) Count 4.75 mill/uL (4.20-5.40); White Blood Cell (WBC) Count 8.3 thou/uL (4.8-10.8)
[2018-08-13 08:32] LABS: Anion Gap 13 mmol/L (10-20); BUN (Urea Nitrogen) 36 mg/dL (9.8-20.1); Calc. Creatinine Clearance 88 mL/min (70-130); Calcium 9.2 mg/dL (7.8-10.44); Carbon Dioxide 32 mmol/L (22-29); Chloride 93 mmol/L (98-107); Estimated GFR-MDRD 61; Glucose 125 mg/dL (70-105); Sodium 135 mmol/L (136-145)
[2018-08-13 08:46] LABS: Potassium 2.8 mmol/L (3.5-5.1)
[2018-08-13] MEDS: Enoxaparin Sodium 40 MG/0.4 ML SYRINGE SC SCH (09:25)
[2018-08-13] MEDS: Potassium Chloride 20 MEQ TAB PO SCH (09:26)
[2018-08-13] MEDS: Nicotine 21 MG PATCH TD SCH (09:26)
[2018-08-13] MEDS: Gabapentin 300 MG CAP PO SCH ×3 (09:26→20:17)
[2018-08-13] MEDS: Aspirin 81 mg Enteric Coated Tablet PO SCH (09:27)
[2018-08-13] MEDS: Varenicline Tartrate 0.5 MG TAB PO SCH (09:27)
[2018-08-13] MEDS: DULoxetine 30 MG CAP PO SCH ×2 (09:27→20:17)
[2018-08-13] MEDS: metFORMIN 500 MG TAB PO SCH ×2 (09:27→16:53)
[2018-08-13] MEDS: predniSONE 20 MG TAB PO SCH (09:27)
[2018-08-13] MEDS: Bumetanide 1 MG TAB PO SCH ×2 (09:27→20:16)
--- NOTE | 2018-08-13 10:21 | PDOC.FM ---
- Subjective Subjective: Pt reports doing well this morning. Denies needing to use mask of oxygen the rest the day and night yesterday. Denies any acute events overnight. Denies any SOB or chest pain. Denies any n/v/d/c. - Objective MAR Reviewed: Yes Vital Signs & Weight: Vital Signs (12 hours) Temp Pulse Resp BP BP Pulse Ox 08/13/18 08:42 99.2 F 101 H 20 107/55 L 89 L 08/13/18 06:18 90 L 08/13/18 06:15 109 H 16 08/13/18 03:43 98.4 F 99 20 92/54 L 90 L 08/13/18 00:00 98 08/12/18 23:55 97.8 F 88 16 95/53 L 98 Weight Weight 82.1 kg Most Recent Monitor Data Heart Rate from ECG 103 NIBP 118/82 NIBP BP-Mean 94 Respiration from ECG 18 SpO2 88 I&O: 08/12/18 08/13/18 08/14/18 06:59 06:59 06:59 Intake Total 240 Output Total 1994 742 Balance -1755 -1650 Result Diagrams: 08/13/18 07:58 08/13/18 07:58 EKG Reviewed by me: Yes Radiology Reviewed by me: Yes Radiology: No new imaging Phys Exam - Physical Examination Constitutional: NAD HEENT: PERRLA, moist MMs, oral pharynx no lesions Neck: no nodes, supple, full ROM Some rales noted in both lungs bilaterally Cardiovascular: RRR, no significant murmur, no rub Gastrointestinal: soft, no distention, positive bowel sounds Musculoskeletal: no edema, pulses present Neurological: non-focal, moves all 4 limbs Psychiatric: normal affect, A&O x 3 Skin: no rash, normal turgor Dx/Plan (1) Septic shock Code(s): A41.9 - SEPSIS, UNSPECIFIED ORGANISM; R65.21 - SEVERE SEPSIS WITH SEPTIC SHOCK Status: Resolved (2) UTI (urinary tract infection) Status: Acute Qualifiers: Urinary tract infection type: acute pyelonephritis Qualified Code(s): N10 - Acute pyelonephritis (3) CHF (congestive heart failure) Code(s): I50.9 - HEART FAILURE, UNSPECIFIED Status: Chronic (4) Diabetes mellitus, type II Status: Acute (5) Sarcoidosis of lung Code(s): D86.0 - SARCOIDOSIS OF LUNG Status: Acute (6) Chronic lung disease Code(s): J98.4 - OTHER DISORDERS OF LUNG Status: Chronic (7) Fibromyalgia Status: Chronic (8) Hypertension Code(s): I10 - ESSENTIAL (PRIMARY) HYPERTENSION Status: Chronic (9) PVD (peripheral vascular disease) with claudication Code(s): I73.9 - PERIPHERAL VASCULAR DISEASE, UNSPECIFIED Status: Chronic (10) Depression Code(s): F32.9 - MAJOR DEPRESSIVE DISORDER, SINGLE EPISODE, UNSPECIFIED Status : Chronic Qualifiers: Depression Type: major depressive disorder Major depression episode severity: mild (11) Tobacco abuse counseling Code(s): Z71.6 - TOBACCO ABUSE COUNSELING Status: Acute (12) Hypokalemia Code(s): E87.6 - HYPOKALEMIA Status: Acute - Plan Plan: Septic shock 2/2 UTI (septic shock resolved) - hypotense, elevated WBC, lactic acidosis with +UA on admission, MAPs<60s had central line placed and started on pressors. Pt has been weaned off pressers -Blood cx NGTD Urine cx- E. coli snes to levaquin - d/c vancomycin today as blood cx neg. Continue on levaquin for 7 days - Pt maintaing BP. acute hypoxic respiratory failure - Pt normally wears 3L NC at home due to Sarcoidosis. Pt on 3 L NC this morning. will continue to [facility]. -Pulmonology Consulted- Dr. Crabtree/Holden- follow recs -duonebs Q6hrs -Pt put on high dose steroid and will taper over next few weeks. Hypokalemia - Pt potassium still low. Replaced with IV K and oral K this morning. -Will continue to replace and recheck later. If stable pt possibly can go home. Interstitial lung disease -Pt told in past due to sarcoidoisis - aware, solumedrol in ED - continue home medications -Continue sabrina steroids. Congestive heart failure - BNP elevated>700 on admission -Started on home bumex. - ECHO shows diastolic dysfunction. Severe tricuspid regurgitation. Moderate Aortic Regurgitation. Appears to be somewhat stable from last years echo in 2017. -Trops indeterminate, trended down. Likely due to demand ischemia RADHA (Resolved) - s/p IVF resuscitation in ER. - Cr trending down. Continue to monitor BMP PVD - aware, continue home meds DMII - continue home medications - Mild SSI HTN - hold home meds. BP still low today HLD - aware, continue home meds GERD - continue home meds MDD - continue home meds Tobacco Abuse -Pt trying to quit smoking. Continue home chantix at this time.
[2018-08-13] MEDS ORDERED: Potassium Chloride 20 MEQ in Premix Bag 1 BAG IVPB SCH (11:00)
[2018-08-13] MEDS: HumaLOG 300 UNITS/3 ML VIAL SC PRN ×3 (11:37→20:29)
[2018-08-13 14:23] LABS: Anion Gap 17 mmol/L (10-20); BUN (Urea Nitrogen) 36 mg/dL (9.8-20.1); Calc. Creatinine Clearance 71 mL/min (70-130); Calcium 9.4 mg/dL (7.8-10.44); Carbon Dioxide 31 mmol/L (22-29); Chloride 92 mmol/L (98-107); Estimated GFR-MDRD 48; Glucose 232 mg/dL (70-105); Potassium 4.5 mmol/L (3.5-5.1); Sodium 135 mmol/L (136-145)
[2018-08-13] MEDS: Fleet Enema 133 ML BOT FS SCH (15:58)
[2018-08-13] MEDS: Pravastatin Sodium 20 MG TAB PO SCH (20:17)
[2018-08-13] MEDS: tiZANidine HCl 4 MG TAB PO SCH (20:18)
[2018-08-14 04:53] LABS: Anion Gap 16 mmol/L (10-20); BUN (Urea Nitrogen) 38 mg/dL (9.8-20.1); Calc. Creatinine Clearance 84 mL/min (70-130); Calcium 9.5 mg/dL (7.8-10.44); Carbon Dioxide 31 mmol/L (22-29); Chloride 91 mmol/L (98-107); Estimated GFR-MDRD 58; Glucose 175 mg/dL (70-105); Potassium 3.2 mmol/L (3.5-5.1); Sodium 135 mmol/L (136-145)
[2018-08-14] MEDS: HYDROcodone/Acetaminophen 10/325 mg Tablet PO PRN ×2 (05:44→12:13)
[2018-08-14] MEDS: HumaLOG 300 UNITS/3 ML VIAL SC PRN ×4 (05:46→20:21)
--- NOTE | 2018-08-14 06:04 | PDOC.FM ---
- Subjective Subjective: 53 yo female seen at bedside this morning. She states that she feels great. She is doing well from a respiratory standpoint and states that she is much better than yesterday. She states that her increased prednisone regimen has really helped. She hasn't smoked in 5 days and that has been a more recent success for her. She states that her O2 requirement is at baseline, but her saturations are not as high as they normally are. No other complaints today. - Objective Vital Signs & Weight: Vital Signs (12 hours) Temp Pulse Resp BP BP Pulse Ox 08/14/18 03:18 98.1 F 106 H 18 104/55 L 86 L 08/14/18 02:07 100 16 08/13/18 23:28 97.5 F L 100 16 109/56 L 88 L 08/13/18 20:20 86 L 08/13/18 19:51 97.4 F L 100 18 123/60 86 L 08/13/18 18:50 104 H 20 Weight Weight 82.1 kg Most Recent Monitor Data Heart Rate from ECG 103 NIBP 118/82 NIBP BP-Mean 94 Respiration from ECG 18 SpO2 88 I&O: 08/12/18 08/13/18 08/14/18 06:59 06:59 06:59 Intake Total 240 1420 Output Total 1994 1650 Balance -1755 -1650 1420 Result Diagrams: 08/13/18 07:58 08/14/18 04:16 <Doug Spears - Last Filed: 08/14/18 09:19> - Objective Vital Signs & Weight: Vital Signs (12 hours) Temp Pulse Resp BP BP Pulse Ox 08/14/18 07:54 97.3 F L 99 20 116/57 L 91 L 08/14/18 06:31 95 08/14/18 06:29 85 16 95 08/14/18 03:18 98.1 F 106 H 18 104/55 L 86 L 08/14/18 02:07 100 16 08/13/18 23:28 97.5 F L 100 16 109/56 L 88 L Weight Weight 82.1 kg Most Recent Monitor Data Heart Rate from ECG 103 NIBP 118/82 NIBP BP-Mean 94 Respiration from ECG 18 SpO2 88 I&O: 08/13/18 08/14/18 08/15/18 06:59 06:59 06:59 Intake Total 1420 120 Output Total 1650 Balance -1650 1420 120 Result Diagrams: 08/13/18 07:58 08/14/18 04:16 <Paul Schwab - Last Filed: 08/14/18 09:45> Phys Exam - Physical Examination Constitutional: NAD HEENT: moist MMs Respiratory: no wheezing, clear to auscultation bilateral Diminished breath sounds throughout. Cardiovascular: RRR, no significant murmur Gastrointestinal: soft, non-tender, no distention, positive bowel sounds Musculoskeletal: no edema, pulses present Neurological: non-focal, normal sensation, moves all 4 limbs Psychiatric: normal affect, A&O x 3 Skin: no rash <Doug Spears - Last Filed: 08/14/18 09:19> Dx/Plan (1) Septic shock Code(s): A41.9 - SEPSIS, UNSPECIFIED ORGANISM; R65.21 - SEVERE SEPSIS WITH SEPTIC SHOCK Status: Resolved (2) Sarcoidosis of lung Code(s): D86.0 - SARCOIDOSIS OF LUNG Status: Acute (3) Hypokalemia Code(s): E87.6 - HYPOKALEMIA Status: Acute (4) COPD (chronic obstructive pulmonary disease) Status: Chronic (5) CHF (congestive heart failure) Code(s): I50.9 - HEART FAILURE, UNSPECIFIED Status: Chronic (6) UTI (urinary tract infection) Status: Acute Qualifiers: Urinary tract infection type: acute pyelonephritis Qualified Code(s): N10 - Acute pyelonephritis (7) Tobacco abuse counseling Code(s): Z71.6 - TOBACCO ABUSE COUNSELING Status: Chronic (8) Depression Code(s): F32.9 - MAJOR DEPRESSIVE DISORDER, SINGLE EPISODE, UNSPECIFIED Status : Chronic Qualifiers: Depression Type: major depressive disorder Major depression episode severity: mild (9) Hyperlipidemia Code(s): E78.5 - HYPERLIPIDEMIA, UNSPECIFIED Status: Chronic (10) Hypertension Code(s): I10 - ESSENTIAL (PRIMARY) HYPERTENSION Status: Chronic - Plan Plan: Septic shock 2/2 UTI (septic shock resolved) - hypotense, elevated WBC, lactic acidosis with +UA on admission, MAPs<60s had central line placed and started on pressors. - Pressors discontinued, patient maintaining BP. - Blood cx NGTD - Urine cx- E. coli - Continue Levaquin acute hypoxic respiratory failure - Pt normally wears 3L NC at home due to Sarcoidosis. Pt on 3 L NC this morning. will continue to [facility]. - O2 saturation in high 80s low 90s, apparently below baseline. - Pulmonology Consulted- Dr. Crabtree/Holden- follow recs - duonebs Q6hrs - Prednisone increased and will discharge on increased regimen. Hypokalemia - Pt potassium still low. Will go back to Potassium oral BID - Continue to monitor. Interstitial lung disease - Pt told in past due to sarcoidoisis - aware, solumedrol in ED - continue home medications - IS above goal of 1500 ml - Increased steroid dosing Congestive heart failure - BNP elevated>700 on admission - Started on home bumex. - ECHO shows diastolic dysfunction. Severe tricuspid regurgitation. Moderate Aortic Regurgitation. Appears to be somewhat stable from last years echo in 2017. - Trops indeterminate, trended down. Likely due to demand ischemia RADHA (Resolved) - s/p IVF resuscitation in ER. - Cr trending down. Continue to monitor BMP PVD - aware, continue home meds DMII - continue home medications - Mild SSI HTN - hold home meds. - May discharge with BP meds held until PCP follow up. HLD - continue home meds GERD - continue home meds MDD - continue home meds Tobacco Abuse -Pt trying to quit smoking. Continue home chantix at this time. Disposition: Stable, will continue current plan of care and plan discharge with coordination of Pulmonology. <Doug Spears - Last Filed: 08/14/18 09:19> Attending Addendum - Attending Addendum Date/Time: 08/14/18 0945 I personally evaluated the patient and discussed the management with Dr. Spears. I agree with the History, Examination, Assessment and Plan documented above with any addition or exceptions noted below. Patient reports feeling near baseline and sats improved this morning. Continue meds and steroids. Await further recs from Pulm, encourage ambulation. <Paul Schwab - Last Filed: 08/14/18 09:45>
[2018-08-14] MEDS ORDERED: Potassium Chloride 20 MEQ in Premix Bag 1 BAG IVPB SCH (06:15)
[2018-08-14] MEDS: PROVENTIL INHALER 6.7 G (200 INHALATIONS) INH SCH ×3 (06:50→19:40)
[2018-08-14] MEDS: Fleet Enema 133 ML BOT FS SCH (07:33)
--- NOTE | 2018-08-14 07:54 | PRG ---
DATE OF SERVICE: 08/13/2018 SUBJECTIVE: Ms. Valdovinos says she thought she might be ready to go home, but now says she is not ready. She has not had a bowel movement. She was admitted. She had a week and half ago without a bowel movement prior to admission. OBJECTIVE: VITAL SIGNS: She is afebrile, heart rate is 104, respiratory rate is 20, oximetry is 89% on 3 L, and blood pressure 126/61. LUNGS: Clear. HEART: Regular rhythm. S1 and S2, distant. ABDOMEN: Soft and nontender. She does feel thomas than yesterday. EXTREMITIES: Without significant edema. LABORATORY DATA: White count 8.3, hemoglobin 11.1, and platelets are 168,000. Sodium 135, potassium 2.8, chloride 93, bicarb 32, BUN 36, creatinine 0.95, glucose 125. I examined her right after walking out of the bathroom and she is completely out of breath. IMPRESSION: 1. Chronic obstructive pulmonary disease exacerbation, slowly improving. 2. Constipation secondary to chronic opioid use and inactivity. 3. Hypokalemia. 4. Noncompliance with smoking cessation until recently. 5. Respiratory bronchiolitis. 6. Obesity. 7. History of sleep apnea. PLAN: Continue with current care. I have asked the nurse to give her fleet enema. Hopefully, she will be ready for discharge in the morning. Job ID: [id number]
--- NOTE | 2018-08-14 08:13 | CON ---
DATE OF CONSULTATION: ADDENDUM: Pleased to see the note from Dr. Holland, for which I agree. This is a complicated 53-year-old female with cor pulmonale, may be what sounds like sarcoidosis or some other kind of lung disease, who came in with fever secondary to UTI and is now currently on vancomycin and Levaquin and doing better. I found out that she was not taking her potassium at home and that is why her potassium level is low and we are getting her back on that and slowly reintroducing some of her diuretics, although she does not seem very volume overloaded. She intermittently desaturates. As far as her oxygen level, she is currently in the 80s and was put on a Ventimask and was improving, but does not appear to be in major respiratory distress when her oxygen level goes low. It sounds like there has been a chronic issue with her lungs for a while now. So, the plan at this point time is to continue current medicines including CPAP at night. Continue DuoNebs. Continue steroids and current antibiotics. We will switch her over to p.o. antibiotics and hopefully will be ready to go later as it sounds like her respiratory status is baseline. Of note, her chest had decreased breath sound with no major crackles today. Job ID: [id number]
--- NOTE | 2018-08-14 08:17 | CON ---
DATE OF CONSULTATION: ADDENDUM: Please see the note from Dr. Holland, for which I agree. The patient was seen, evaluated, examined, and discussed with the residents by bedside. This is a 53-year-old here for sepsis from UTI. Has long-term breathing issues, but Pulmonary saw her and increased steroids yesterday, but it sounds like she is back to baseline as far as that goes on. Mental status is better and currently on Levaquin p.o. and should be able to be discharged today. Does have low potassium, so we are going to replace that IV before she leaves and urged compliance on that at home. Otherwise, will follow up with primary care as well as Pulmonary in the next week or so. Job ID: [id number]
[2018-08-14] MEDS: Enoxaparin Sodium 40 MG/0.4 ML SYRINGE SC SCH (08:41)
[2018-08-14] MEDS: Nicotine 21 MG PATCH TD SCH (08:41)
[2018-08-14] MEDS: Bumetanide 1 MG TAB PO SCH ×2 (08:42→20:13)
[2018-08-14] MEDS: predniSONE 20 MG TAB PO SCH (08:42)
[2018-08-14] MEDS: Aspirin 81 mg Enteric Coated Tablet PO SCH (08:42)
[2018-08-14] MEDS: metFORMIN 500 MG TAB PO SCH ×2 (08:43→16:28)
[2018-08-14] MEDS: Varenicline Tartrate 0.5 MG TAB PO SCH (08:43)
[2018-08-14] MEDS: Gabapentin 300 MG CAP PO SCH ×3 (08:44→20:13)
[2018-08-14] MEDS: DULoxetine 30 MG CAP PO SCH ×2 (08:45→20:13)
[2018-08-14] MEDS: Potassium Chloride 20 MEQ TAB PO SCH ×2 (10:32→12:12)
--- NOTE | 2018-08-14 11:48 | PRG ---
DATE OF SERVICE: 08/14/2018 SUBJECTIVE: The patient says she feels much better. She got up, took a bath on her own this morning. She has been walking around in the room. She denies shortness of breath. OBJECTIVE: VITAL SIGNS: She is afebrile. Heart rate 79, respiratory rate 20, oximetry is 95% on 4 L. Blood pressure 116/57. LUNGS: Distant clear. HEART: Regular rhythm. ABDOMEN: Soft. IMPRESSION: 1. Chronic obstructive pulmonary disease exacerbation, improving. 2. Respiratory bronchiolitis. 3. Heavy tobacco use until recently. PLAN: 1. Continue smoking cessation. 2. Prednisone taper from 40 mg to 10 mg over the next two weeks. 3. She should probably continue antibiotics for a total of 10 days. She needs to try to minimize her opioid use. Job ID: [id number] MTDD
[2018-08-14] MEDS ORDERED: Potassium Chloride 20 MEQ TAB PO SCH (12:00)
[2018-08-14] MEDS: tiZANidine HCl 4 MG TAB PO SCH (20:13)
[2018-08-14] MEDS: Pravastatin Sodium 20 MG TAB PO SCH (20:14)
[2018-08-15] MEDS: HYDROcodone/Acetaminophen 10/325 mg Tablet PO PRN (04:25)
--- NOTE | 2018-08-15 06:15 | PDOC.FM ---
- Subjective Subjective: 53 yo female seen at bedside this AM. Patient states that she had a good night. She thinks her breathing is doing very well. She states that she is committed to smoking cessation and her has committed today. Patient states that she wants to be done and she knows how much it can help her, but she states it is very difficult for her. She denies chest pain, sob, n/v/d, fevers, or chills. She does complain of some constipation that is no change from her baseline. She states that her O2 has maintained and she is satisfied with that. No other complaints. - Objective Vital Signs & Weight: Vital Signs (12 hours) Temp Pulse Resp BP Pulse Ox 08/15/18 04:19 93 L 08/15/18 00:38 91 L 08/14/18 23:54 88 16 94 L 08/14/18 20:15 90 L 08/14/18 19:31 97 20 94 L 08/14/18 19:08 97.6 F 103 H 16 112/57 L 90 L Weight Weight 82.1 kg Most Recent Monitor Data Heart Rate from ECG 103 NIBP 118/82 NIBP BP-Mean 94 Respiration from ECG 18 SpO2 88 I&O: 08/13/18 08/14/18 08/15/18 06:59 06:59 06:59 Intake Total 1420 120 Output Total 1650 Balance -1650 1420 120 Result Diagrams: 08/13/18 07:58 08/14/18 04:16 <Doug Spears - Last Filed: 08/15/18 07:41> - Objective Vital Signs & Weight: Vital Signs (12 hours) Temp Pulse Resp BP Pulse Ox 08/15/18 08:16 91 L 08/15/18 08:05 90 16 91 L 08/15/18 08:00 97.3 F L 91 20 116/63 93 L 08/15/18 04:19 93 L 08/15/18 00:38 91 L 08/14/18 23:54 88 16 94 L Weight Weight 82.1 kg Most Recent Monitor Data Heart Rate from ECG 103 NIBP 118/82 NIBP BP-Mean 94 Respiration from ECG 18 SpO2 88 I&O: 08/14/18 08/15/18 08/16/18 06:59 06:59 06:59 Intake Total 1420 120 Balance 1420 120 Result Diagrams: 08/13/18 07:58 08/15/18 07:15 <SchwabPaul Letitia - Last Filed: 08/15/18 09:44> Phys Exam - Physical Examination Constitutional: NAD HEENT: moist MMs Neck: no nodes, supple Respiratory: no wheezing, clear to auscultation bilateral Diminished breath sounds bilaterally. Cardiovascular: RRR, no significant murmur Gastrointestinal: soft, non-tender, no distention, positive bowel sounds Musculoskeletal: pulses present 1+ bilaterally. Neurological: non-focal, normal sensation, moves all 4 limbs Lymphatic: no nodes Psychiatric: normal affect, A&O x 3 Skin: no rash <Doug Spears - Last Filed: 08/15/18 07:41> Dx/Plan (1) Septic shock Code(s): A41.9 - SEPSIS, UNSPECIFIED ORGANISM; R65.21 - SEVERE SEPSIS WITH SEPTIC SHOCK Status: Resolved (2) Sarcoidosis of lung Code(s): D86.0 - SARCOIDOSIS OF LUNG Status: Acute (3) Hypokalemia Code(s): E87.6 - HYPOKALEMIA Status: Acute (4) COPD (chronic obstructive pulmonary disease) Status: Chronic (5) CHF (congestive heart failure) Code(s): I50.9 - HEART FAILURE, UNSPECIFIED Status: Chronic (6) UTI (urinary tract infection) Status: Acute Qualifiers: Urinary tract infection type: acute pyelonephritis Qualified Code(s): N10 - Acute pyelonephritis (7) Tobacco abuse counseling Code(s): Z71.6 - TOBACCO ABUSE COUNSELING Status: Chronic (8) Depression Code(s): F32.9 - MAJOR DEPRESSIVE DISORDER, SINGLE EPISODE, UNSPECIFIED Status : Chronic Qualifiers: Depression Type: major depressive disorder Major depression episode severity: mild (9) Hyperlipidemia Code(s): E78.5 - HYPERLIPIDEMIA, UNSPECIFIED Status: Chronic (10) Hypertension Code(s): I10 - ESSENTIAL (PRIMARY) HYPERTENSION Status: Chronic - Plan Plan: Septic shock 2/2 UTI (septic shock resolved) - hypotense, elevated WBC, lactic acidosis with +UA on admission, MAPs<60s had central line placed and started on pressors. - Pressors discontinued, patient maintaining BP. - Blood cx NGTD - Urine cx- E. coli - Continue Levaquin as outpatient for total treatment of 10 days. acute hypoxic respiratory failure - Pt normally wears 3L NC at home due to Sarcoidosis. Pt on 3 L NC this morning. will continue to [facility]. - O2 saturation in 90s at baseline. - Pulmonology Consulted- Dr. Crabtree/Holden- follow recs - duonebs Q6hrs - Prednisone increased and will discharge on increased regimen to taper over next 2 weeks. Hypokalemia - Pt potassium still low. Will go back to Potassium oral BID - Continue to monitor, CMP pending this AM. Interstitial lung disease - Pt told in past due to sarcoidoisis - aware, solumedrol in ED - continue home medications - IS above goal of 1500 ml - Increased steroid dosing Congestive heart failure - BNP elevated>700 on admission - Started on home bumex. - ECHO shows diastolic dysfunction. Severe tricuspid regurgitation. Moderate Aortic Regurgitation. Appears to be somewhat stable from last years echo in 2017. - Trops indeterminate, trended down. Likely due to demand ischemia RADHA (Resolved) - s/p IVF resuscitation in ER. - Cr trending down. Continue to monitor BMP PVD - aware, continue home meds DMII - continue home medications - Mild SSI HTN - hold home meds. - May discharge with BP meds held until PCP follow up. HLD - continue home meds GERD - continue home meds MDD - continue home meds Tobacco Abuse -Pt trying to quit smoking. Continue home chantix at this time. - Sent Nicotine patch in for discharge as well. Disposition: Stable, will continue current plan of care and plan discharge today. <Doug Spears - Last Filed: 08/15/18 07:41> Attending Addendum - Attending Addendum Date/Time: 08/15/1844 I personally evaluated the patient and discussed the management with Dr. Spears. I agree with the History, Examination, Assessment and Plan documented above with any addition or exceptions noted below. Patient feeling well this morning. Anticipate discharge later today after discussion with pulmonology. <Paul Schwab - Last Filed: 08/15/18 09:44>
[2018-08-15 08:03] VITALS: BP 116/63; TEMP 97.3
[2018-08-15] MEDS: PROVENTIL INHALER 6.7 G (200 INHALATIONS) INH SCH (08:14)
[2018-08-15] MEDS: Potassium Chloride 20 MEQ TAB PO SCH (08:24)
[2018-08-15] MEDS: DULoxetine 30 MG CAP PO SCH (08:24)
[2018-08-15] MEDS: Aspirin 81 mg Enteric Coated Tablet PO SCH (08:25)
[2018-08-15] MEDS: metFORMIN 500 MG TAB PO SCH (08:25)
[2018-08-15] MEDS: predniSONE 20 MG TAB PO SCH (08:25)
[2018-08-15] MEDS: Enoxaparin Sodium 40 MG/0.4 ML SYRINGE SC SCH (08:25)
[2018-08-15] MEDS: Gabapentin 300 MG CAP PO SCH (08:25)
[2018-08-15] MEDS: Bumetanide 1 MG TAB PO SCH (08:25)
[2018-08-15] MEDS: Varenicline Tartrate 0.5 MG TAB PO SCH (08:26)
[2018-08-15] MEDS: Nicotine 21 MG PATCH TD SCH (08:26)
[2018-08-15 08:57] LABS: ALT (SGPT) 9 U/L (8-55); AST (SGOT) 14 U/L (5-34); Albumin 3.3 g/dL (3.5-5.0); Alkaline Phosphatase 66 U/L (40-150); Anion Gap 15 mmol/L (10-20); BUN (Urea Nitrogen) 37 mg/dL (9.8-20.1); Bilirubin, Total 0.7 mg/dL (0.2-1.2); Calc. Creatinine Clearance 88 mL/min (70-130); Calcium 9.2 mg/dL (7.8-10.44); Carbon Dioxide 30 mmol/L (22-29); Chloride 93 mmol/L (98-107); Estimated GFR-MDRD 61; Globulin 3.1 g/dL (2.4-3.5); Glucose 122 mg/dL (70-105); Potassium 3.4 mmol/L (3.5-5.1); Protein, Total 6.4 g/dL (6.0-8.3); Sodium 135 mmol/L (136-145)
--- NOTE | 2018-08-18 16:06 | DIS ---
DATE OF ADMISSION: 08/10/2018 DATE OF DISCHARGE: 08/15/2018 ADMITTING ATTENDING: Alexandrea Magallanes MD. DISCHARGE ATTENDING: Paul Schwab MD. CONSULTS: Include 08/11/2018, Dr. Crabtree and Dr. Robby Hatch of Pulmonology Critical Care. IMAGING STUDIES: On 08/10/2018, chest x-ray showed nonspecific, stable, increased linear interstitial density. On 08/10/2018, repeat chest x-ray 3 hours later showed stable diffuse nonspecific increase in interstitial density, left vascular catheter was noted. She had a chest, abdomen, and pelvis CT on 08/10/2018, which showed 1. There are chronic lung parenchymal changes, which appeared stable when compared to CT dated 08/27/2017. 2. Tiny pocketed gas in the innominate vein indicates introduction of air during placement of central line. 3. No acute lung process. 4. Inflammatory haziness in the retroperitoneum surrounding both adrenal glands extending into the right retroperitoneum with perinephric edema and stranding, mild edema of the right kidney, inflammatory stranding along the course of both ureters, more prominent on the right. Tiny amount of gas in the urinary bladder is seen dependently along the anterior wall, has there been recent bladder instrumentation? This does not have the appearance of emphysematous cystitis, however, recommended clinical correlation. 5. Hepatosplenomegaly with heterogeneous liver, which has been previously described. 6. Diffuse atherosclerotic changes involving the abdominal aorta and iliac arteries as described. She had another repeat chest x-ray on 08/10/2018, which showed: 1. Cardiomegaly, interstitial prominence, mild vascular engorgement, central line has tip overlying SVC and unchanged, no acute interval change apparent. She also had an echocardiogram on 08/10/2018, which showed a technically difficult exam, EF was 55% to 60%, E/A flow reversal noted, mildly enlarged right ventricle, left atrium moderately dilated, aortic valve sclerotic, moderate aortic regurgitation, severe tricuspid regurgitation. PRIMARY DIAGNOSES: Include: 1. Septic shock secondary to urinary tract infection. 2. Acute hypoxic respiratory failure. 3. Hypokalemia. 4. Interstitial lung disease. 5. Sarcoidosis. 6. Congestive heart failure. 7. Acute kidney injury. 8. Peripheral vascular disease. 9. Diabetes mellitus, type 2. 10. Hypertension. 11. Hyperlipidemia. 12. Gastroesophageal reflux disease. 13. Major depressive disorder. 14. Tobacco abuse. DISCHARGE MEDICATIONS: Include: 1. Levaquin 750 mg p.o. for 8 more days. 2. Nicotine patch 21 mg transdermal every day. 3. Prednisone 10 mg taper for the next couple weeks. 4. ProAir 2 puffs inhaler t.i.d. 5. Ventolin nebulizer 3 mL nebulized t.i.d. 6. Aspirin 81 mg. 7. Bumetanide 2 mg tablet b.i.d. 8. Cymbalta 30 mg p.o. b.i.d. 9. Gabapentin 300 mg 2 tabs p.o. b.i.d. 10. Hydrocodone-acetaminophen 10/325 one p.o. q.i.d. p.r.n. as needed for pain. 11. Liraglutide 1.2 mg subcu daily. 12. Magnesium oxide 400 mg p.o. daily. 13. Metformin 1000 mg p.o. b.i.d. 14. Movantik 1 tab p.o. daily. 15. Potassium 40 mEq p.o. b.i.d. 16. Pravastatin 20 mg p.o. q.p.m. 17. Tiotropium 18 mcg inhaler daily. 18. Tizanidine 2 tabs p.o. at bedtime. 19. Chantix 1 tab p.o. b.i.d. DISCONTINUED MEDICATIONS: Include she stopped vancomycin for couple of days until the urine culture came back with sensitivity. Otherwise, she was increased on her prednisone to 40 mg from home dose. HISTORY OF PRESENT ILLNESS AND BRIEF HOSPITAL COURSE: This is a 53-year-old patient, who came in with a week history of body aches, chills, and had a temperature max at home of 103. She had increased shortness of breath. She normally nebulizes 3 L nasal cannula at home due to sarcoidosis. When she came in, her heart rate was elevated in the range of 170s to 180s. She reports having to start catheterizing herself due to neurogenic bladder but did not start like she should have and reports that she has been having painful catheterization within the last few weeks. When she came in, she was hypotensive, she had elevated white blood cell count, had lactic acidosis in UA. Her MAP was below 60, so they placed a central line in the left area and started on Levophed. When she came in, her white blood cell count was 18.0. Her lactic acid was 2.6. The patient was a little bit tachycardiac, hypotensive. She was also found to have creatinine of 1.34 and at this time, was admitted for septic shock. She was only started on Levophed drip mainly from that night of admission to the morning of admission where after she received a few fluid boluses, she was able to be weaned off the pressors. The patient was started on Levaquin and vancomycin for antibiotic coverage. Her UA upon admission showed negative nitrites, large leukocyte esterase of greater than 50, too numerous to count white blood cells, 1+ bacteria, and 4 to 6 hyaline cast. We got urine cultures, blood cultures. Blood cultures did not grow anything out in 5 days. Flu A and B were negative. She grew out E. coli in her urine, which was sensitive to Levaquin, so we would discontinue the vancomycin after few days and just continue with the Levaquin. The patient greatly improved upon on 08/11. Yet, they were multiple times that she had to use her rebreather mask instead of nasal cannula. Her oxygen sats kept dropping. The patient would be get tired at times. At this time, the patient would continue to improve. She would eventually be transferred to Oncology for medical management. The main thing with the patient, she has a history of sarcoidosis, and I think due to the illness, her O2 sats were dropping. She would maintain her O2 sats in the next few days at only 90%, 89% on her normal 3 L nasal cannula. We increased her dose of prednisone to 40 mg daily due to sarcoidosis. Continued on the Levaquin, but per Dr. Hatch's platform engineer, we kept her for a few more days until her breathing improved. Also while the patient was here, she has severe right-sided heart failure. She is supposed to be on Bumex and metolazone 3 days a week. The patient came in with a potassium of 2.6 with no significant EKG changes, but the patient reports that she had not been taking her potassium pills as she had not been feeling well the last few days, but still taking her fluid pills, so at this time we would continue replacing her potassium. It continued to drop a few days, on the 14th it was 2.9 and on the 16th it was 2.8. We would continue to monitor and replace, a few times we had to give her IV potassium. We continued her home potassium dose, she takes , likely the patient was depleted due to her home Lasix dosing and Bumex dosing and the patient finally would improve. Her oxygen saturation would be more stable. Her creatinine trended down with a little bit of fluids, so at this time we decided the patient was stable for discharge. DISPOSITION: Fair. DISCHARGE LOCATION: Home. ACTIVITY: As tolerated. DIET: Advanced heart healthy fluid restricted diet. FOLLOWUP: Will need to follow up in 1 week with her primary care doctor for hospital followup. Job ID: [id number]
== END 2018-08-15 13:43 | disposition home or self-care (01) | DRG 698 ==
LOC: ERS 02:39 → CCU 05:25 → ONC 08-11 18:19
PROVIDERS: ADMIT Student in an Organized Health Care Education/Training Program; ATTEND Student in an Organized Health Care Education/Training Program
PROC: 05HN33Z Insertion of Infusion Device into Left Internal Jugular Vein, Percutaneous Approach (ICD-10-PCS; principal; 2018-08-10)
PROC: 3E033XZ Introduction of Vasopressor into Peripheral Vein, Percutaneous Approach (ICD-10-PCS; 2018-08-10)
DX: T83.511A Infection and inflammatory reaction due to indwelling urethral catheter, initial encounter (principal); A41.9 Sepsis, unspecified organism; R65.21 Severe sepsis with septic shock; J96.21 Acute and chronic respiratory failure with hypoxia; N10 Acute pyelonephritis; N17.9 Acute kidney failure, unspecified; I50.32 Chronic diastolic (congestive) heart failure; I24.8 Other forms of acute ischemic heart disease; J44.1 Chronic obstructive pulmonary disease with (acute) exacerbation; K21.9 Gastro-esophageal reflux disease without esophagitis; I11.0 Hypertensive heart disease with heart failure; F32.9 Major depressive disorder, single episode, unspecified; G47.33 Obstructive sleep apnea (adult) (pediatric); F17.210 Nicotine dependence, cigarettes, uncomplicated; J98.4 Other disorders of lung; M79.7 Fibromyalgia; E87.6 Hypokalemia; E11.51 Type 2 diabetes mellitus with diabetic peripheral angiopathy without gangrene; B96.20 Unspecified Escherichia coli [E. coli] as the cause of diseases classified elsewhere; I27.81 Cor pulmonale (chronic); Z99.81 Dependence on supplemental oxygen; J84.115 Respiratory bronchiolitis interstitial lung disease; K59.00 Constipation, unspecified; Z88.0 Allergy status to penicillin; Z79.82 Long term (current) use of aspirin
CPT/HCPCS: 36415; 36416; 36556; 51701; 71045; 71260; 74177; 80048; 80053; 80202; 81003; 81015; 82553; 83605; 83880; 84145; 84484; 85025; 87040; 87077; 87086; 87186; 87804; 93005; 93306; 94640; 94660; 94760; 96365; 96366; 96367; 96368; 96375; 96376; A4353; G8978-GP-CM; G8979-GP-CK; G8987-GO-CK; G8988-GO-CI; J1650; J1720; J1885; J1956; J2930; J3370; J3480; J7050; J7506; J7620; Q0162

== ENCOUNTER 2018-08-26 20:34 | Inpatient (IN) | payer OTHER ==
[2018-08-26 21:26] LABS: #Basophils 0.2 thou/uL (0.0-0.2); #Eosinphils 0.1 thou/uL (0.0-0.7); #Lymphocytes 5.1 thou/uL (1.20-3.40); #Monocytes 0.8 thou/uL (0.11-0.59); #Neutrophils 8.1 thou/uL (1.40-6.50); %Basophils 1.5 % (0.0-1.0); %Eosinophils 0.8 % (0.0-10.0); %Lymphocytes 35.7 % (21.0-51.0); %Monocytes 5.8 % (0.0-10.0); %Neutrophils 56.1 % (42.0-75.0); Hemoglobin 15.5 g/dL (12.0-16.0); Mean Corpuscular HGB CONC 30.8 g/dL (32.0-36.0); Mean Corpuscular Hemoglobin 23.9 pg (27.0-31.0); Mean Corpuscular Volume 77.5 fL (78.0-98.0); Mean Platelet Volume 10.3 fL (7.4-10.4); Platelet Count 269 thou/uL (130-400); RBC Distribution Width 20.1 % (11.5-14.5); White Blood Cell (WBC) Count 14.3 thou/uL (4.8-10.8)
--- NOTE | 2018-08-26 21:27 | RAD ---
ONE VIEW CHEST: 08/26/18 HISTORY: Syncope. COMPARISON: 08/10/18. FINDINGS: Upper normal cardiac silhouette. Chronic changes of the lung parenchyma, without consolidation or mas s. No pneumothorax or osseous abnormalities. IMPRESSION: Chronic changes in the lung parenchyma. POS: [facility]
[2018-08-26 21:48] LABS: ALT (SGPT) 12 U/L (8-55); AST (SGOT) 21 U/L (5-34); Albumin 4.2 g/dL (3.5-5.0); Alkaline Phosphatase 66 U/L (40-150); BUN (Urea Nitrogen) 52 mg/dL (9.8-20.1); Bilirubin, Total 1.5 mg/dL (0.2-1.2); Calc. Creatinine Clearance 0 mL/min (70-130); Calcium 10.8 mg/dL (7.8-10.44); Estimated GFR-MDRD 53; Globulin 3.5 g/dL (2.4-3.5); Glucose 129 mg/dL (70-105); Magnesium 2.1 mg/dL (1.6-2.6); Protein, Total 7.7 g/dL (6.0-8.3)
[2018-08-26 21:58] LABS: Anion Gap 23 mmol/L (10-20); Carbon Dioxide 38 mmol/L (22-29); Sodium 133 mmol/L (136-145)
[2018-08-26 22:00] LABS: Chloride 74 mmol/L (98-107); Potassium 2.3 mmol/L (3.5-5.1)
[2018-08-26 22:08] LABS: CKMB 3.2 ng/mL (0-6.6)
[2018-08-26 22:11] LABS: Bilirubin Negative (Negative); Blood, Urine Negative (Negative); Clarity CLEAR (Clear); Glucose, Urine (Dipstick) Negative (Negative); Leukocyte Negative (Negative); Nitrite Negative (Negative); Protein, Urine (Dipstick) Negative (Neg-Trace); Specific Gravity, Urine 1.013 (1.002-1.036); Urobilinogen 0.2 mg/dL (0.2-1.0); pH, Urine 7.5 (5.0-9.0)
[2018-08-26 22:15] LABS: Amphetamine Not Detected (NotDetected); Barbiturates Screen Not Detected (NotDetected); Benzodiazepine Screen Not Detected (NotDetected); Cocaine Metabolite Screen Not Detected (NotDetected); Medtox Control Line Valid? VALID (VALID); Medtox Reader # READER 4; Methadone Not Detected (NotDetected); Methamphetamine Not Detected (NotDetected); Opiate Screen Detected (NotDetected); Oxycodone Screen Not Detected (NotDetected); Phencyclidine (PCP) Not Detected (NotDetected); THC/Cannabinoid Screen Not Detected (NotDetected); Tricyclic Screen Not Detected (NotDetected)
--- NOTE | 2018-08-26 22:41 | CT ---
NONCONTRAST CT FACIAL BONES: 08/26/18 HISTORY: Injury after falling and hitting chin on floor. Left sided facial pain. FINDINGS: There is no evidence of a fracture involving the facial bones. Temporomandibular joints are normally located. Orbits are normal and symmetric in appearance bilaterally. [place] lenses are not visualized. There is mucosal thickening in the left sphenoid sinus. The remainder of the paranasal sinuses are cl ear. There is a small subcentimeter osseous excrescence seen in the region of the left frontal sinus near the frontoethmoidal recess probably related to tiny osteotomy. Vascular calcifications are seen in the carotid arteries as well as involving the distal vertebral arteries. IMPRESSION: 1. No fracture is seen involving the facial bones. 2. Sinus disease involving the left sphenoid sinus. POS: [facility]
--- NOTE | 2018-08-26 22:49 | CT ---
NONCONTRAST CT HEAD: 08/26/18 HISTORY: Two syncopal episodes at home today. Injury after fall. COMPARISON: None available. FINDINGS: There is no evidence of a hemorrhage, acute infarction, mass effect, or midline shift. There is mild cerebral volume loss. The ventricular system is normal in size, shape and position. No calvarial frac ture is seen. There is mucosal thickening in the left sphenoid sinus. The mastoid air cells are not w ell pneumatized bilaterally but otherwise clear. IMPRESSION: 1 No acute intracranial abnormalities demonstrated. 2. Sinus disease involving the left sphenoid sinus with question of tiny osteoma near the frontoethmo idal recess. POS: [facility]
[2018-08-26] MEDS ORDERED: Ondansetron PF 4 MG/2 ML Vial ONE (22:54)
[2018-08-26] MEDS ORDERED: Dexamethasone 4 mg/ml Vial ONE (22:54)
--- NOTE | 2018-08-26 23:08 | CT ---
CT ANGIOGRAM OF THE CHEST 08/26/18 COMPARISON: 12/26/16 HISTORY: Elevated D-dimer. Syncopal episode. TECHNIQUE: CT angiogram of the chest is performed in the axial plane. Three dimensional reformatted image are baptiste bmitted for interpretation. FINDINGS: Trachea and central bronchi are patent. Essentially stable fibrotic changes of the lung parenchyma. N o pleural effusion. No pneumothorax. No mediastinal mass, lymphadenopathy or hematoma. Heart size is enlarged. No significant pericardial fluid. Limited evaluation of the aorta due to inadequate contras t opacification. Atherosclerosis is identified. Visualized upper solid organs are grossly unremarkable. Adequate contrast opacification of the pulmonary arterial system to the level of the segmental arteri es. No filling defect to suggest a thromboembolism. There is dilatation of both central pulmonary arteries suggesting pulmonary arterial hypertension. IMPRESSION: 1. Stable fibrotic changes of the lung parenchyma. 2. No evidence of pulmonary artery embolism to the level of the segmental arteries. 3. Dilated central pulmonary arteries, compatible with pulmonary arterial hypertension. POS: [facility]
[2018-08-26 23:10] LABS: Base Excess-Venous 18.8 mmol/L (0 (+/- 2.5)); Bicarbonate (HCO3v) 46.1 mmol/L (22.0-29.0); CO2 Tension (PvCO2) 56.4 mmHg (41.0-51.0); Calcium, Ionized 1.06 mmol/L (1.12-1.32); Hemoglobin - Calc 18.7 g/dL (12.0-18.0); O2 Tension (PvO2) 40.7 mmHg (35.0-45.0); Potassium 2.1 mmol/L (3.4-4.7); T. Carbon Dioxide 47.9 mmol/L (1.0-85.0); vO2 Saturation-calc 79.3 % (94-98)
[2018-08-26] MEDS ORDERED: Fentanyl 100 MCG/2 ML VIAL ONE (23:30)
--- NOTE | 2018-08-27 00:29 | PDOC.FPRHP ---
- History of Present Illness Chief Complaint: syncopal episodes History of Present Illness: 53 yo F with multiple medical problems recently discharged after resolution of septic shock 2/2 UTI presents for multiple syncopal episodes. Patient states that she has been feeling dizzy for past few days, and passed out twice today after standing up in her home and waking up on floor. She hit her head and hurt her knees and L hand. She reports 10 minutes before the first episode, her heart was racing into the 200s on her pulse oximeter. She also fell 2 days ago, but was able to guide herself to the floor. Pt reports she has lost 25 lbs of "water weight" since discharge. She also reports she has had a poor appetite, and frequent dry heaves. In the ED, she received fentanyl 25 mcg IV push, zofran 8 mg IV push, KDur 60 meq, and decadron [address] brain WNL. CT facial bones- no acute fractures. D-dimer elevated, CTA chest showed no PE. CXR stable chronic changes, no pneumonia or acute abnormalities. EKG showed tachycardia with PVC, possible left atrial enlargement, inferior infarct age undetermined, possible lateral infarct, ST and T wave abnormality, prolonged QT interval. - Allergies/Adverse Reactions Allergies Allergy/AdvReac Type Severity Reaction Status Date / Time adhesive Allergy Verified 07/25/17 15:00 Penicillins Allergy Verified 07/25/17 15:00 pregabalin [From Lyrica] Allergy Verified 07/25/17 15:00 - Home Medications Medication Instructions Recorded Confirmed Type Bumetanide 2 tablet PO BID 02/10/16 08/27/18 History Pravastatin Sodium 20 mg PO QPM 02/10/16 08/27/18 History Aspirin [Ecotrin Low Strength] 81 mg PO DAILY #0 tab 02/12/16 08/27/18 Rx ALButerol Sulfate [Ventolin Neb] 3 ml NEB TID 05/10/16 08/27/18 History Albuterol Sulfate [Proair HFA] 2 puff INH TID PRN 05/10/16 08/27/18 History DULoxetine HCl [Cymbalta] 30 mg PO BID 11/11/16 08/27/18 History Liraglutide [Victoza 2-Lion] 1.2 mg SC DAILY 11/11/16 08/27/18 History Tiotropium [Spiriva Handihaler] 18 mcg INH DAILY 11/11/16 08/27/18 History metFORMIN HCl 1,000 mg PO BID-WM 11/11/16 08/27/18 History Magnesium Oxide [Magnesium] 400 mg PO DAILY 12/18/16 08/27/18 History HYDROcodone/Acetaminophen 1 each PO QID PRN 01/06/17 08/27/18 History [Hydrocodone-Acetamin 10-325 mg] Potassium Chloride [K-Tab ER] 40 meq PO BID 01/06/17 08/27/18 History tiZANidine HCl [Tizanidine HCl] 2 tab PO HS 01/06/17 08/27/18 History Gabapentin 2 tab PO TID 07/25/17 08/27/18 History Naloxegol Oxalate [Movantik] 1 tab PO DAILY 08/11/18 08/27/18 History Varenicline Tartrate [Chantix] 1 tab PO BID 08/11/18 08/27/18 History Levofloxacin [Levaquin] 750 mg PO 0600 #8 tab 08/15/18 08/27/18 Rx Nicotine [Nicoderm CQ] 21 mg TD DAILY #7 patch 08/15/18 08/27/18 Rx predniSONE [Prednisone] 10 mg PO ASDIR #40 tablet 08/15/18 08/27/18 Rx - History PMHx: recent admission for septic shock 2/2 UTI, Chronic hypoxic respiratory failure, hypokalemia, ILD, sarcoidosis, CHF, PVD, DM2, HTN, LD, GERD, MDD, tobacco abuse, noncompliance, cor pulmonale, urinary retention PSHx: tonsillectomy, appendectomy, cholecystectomy, ortho surgeries FHx: noncontributory Social: quit smoking 13 days ago, on chantix (used to smoke 1.5 ppd); denies alcohol or drug use - Review of Systems General: reports: weight/appetite/sleep changes (decreased appetite). denies: fever/chills Eyes: reports: vision changes (cloudy eyes, not acutely new). denies: eye pain ENT: reports: nasal congestion. denies: rhinorrhea Respiratory: reports: congestion, shortness of breath. denies: cough Cardiovascular: reports: chest pain (occasional sharp left sided), palpitation. denies: edema Gastrointestinal: reports: nausea, vomiting (dry heaves), constipation. denies : diarrhea, abdominal pain, GI bleeding Genitourinary: reports: dysuria. denies: incontinence, polyuria, other (no hematuria) Skin: reports: rashes (scars on arms from picking skin), lesions, other (easy bleeding/bruising) Musculoskeletal: reports: pain (knees, left wrist, L 3rd and 4th fingers, fibromyalgia), tenderness (right calf) Neurological: reports: syncope. denies: numbness, weakness Psychological: reports: anxiety, depression - Vital signs BP: [115/63] HR: [90] RR: [18] Tmax: [98.2] Pox: [93]% on [3L] Wt: [75.75] - Physical Exam Constitutional: NAD, awake, alert and oriented HEENT: normocephalic and atraumatic, PERRLA, EOMI (bilateral nystagmus), conjunctiva clear, grossly normal hearing, normal nasal mucosa (scab in L nare) , other (MM very dry, papules on tongue) Neck: supple, other (+tender LAD) Heart: RRR, normal S1/S2, no murmurs/rubs/gallops, pulses present, no edema Lungs: no wheezing, other (Poor air movement, distant lung sounds) Abdomen: soft, bowel sounds present, other (minimal diffuse tenderness to palpation) Musculoskeletal: normal structure, normal tone Neurological: no focal deficit, CN II-XII intact, normal sensation Skin: capillary refill <2 seconds, other (+tenting) Heme/Lymphatic: other (bruising on abdomen and over arms/hands) Psychiatric: normal mood and affect, intact recent and remote memory FMR H&P: Results - Labs Result Diagrams: 08/27/18 03:22 08/27/18 03:22 Lab results: WBC 14.3 thou/uL (4.8-10.8) H 08/26/18 21:14 Hgb 15.5 g/dL (12.0-16.0) 08/26/18 21:14 Hct 50.4 % (36.0-47.0) H 08/26/18 21:14 MCV 77.5 fL (78.0-98.0) L 08/26/18 21:14 Plt Count 269 thou/uL (130-400) 08/26/18 21:14 Neutrophils % 56.1 % (42.0-75.0) 08/26/18 21:14 VBG pCO2 56.4 mmHg (41.0-51.0) H 08/26/18 23:06 VBG pO2 40.7 mmHg (35.0-45.0) 08/26/18 23:06 Sodium 133 mmol/L (136-145) L 08/26/18 21:14 Potassium 2.3 mmol/L (3.5-5.1) L* 08/26/18 21:14 Chloride 74 mmol/L (98-107) L* 08/26/18 21:14 Carbon Dioxide 38 mmol/L (22-29) H 08/26/18 21:14 BUN 52 mg/dL (9.8-20.1) H 08/26/18 21:14 Creatinine 1.08 mg/dL (0.6-1.1) 08/26/18 21:14 Glucose 129 mg/dL (70-105) H 08/26/18 21:14 Calcium 10.8 mg/dL (7.8-10.44) H 08/26/18 21:14 Total Bilirubin 1.5 mg/dL (0.2-1.2) H 08/26/18 21:14 AST 21 U/L (5-34) 08/26/18 21:14 ALT 12 U/L (8-55) 08/26/18 21:14 Alkaline Phosphatase 66 U/L (40-150) 08/26/18 21:14 CK-MB (CK-2) 3.2 ng/mL (0-6.6) 08/26/18 21:14 B-Natriuretic Peptide 451.2 pg/mL (0-100) H 08/26/18 21:14 Serum Total Protein 7.7 g/dL (6.0-8.3) 08/26/18 21:14 Albumin 4.2 g/dL (3.5-5.0) 08/26/18 21:14 Urine Ketones Negative mg/dL (Negative) 08/26/18 20:54 Urine Blood Negative (Negative) 08/26/18 20:54 Urine Nitrite Negative (Negative) 08/26/18 20:54 Ur Leukocyte Esterase Negative (Negative) 08/26/18 20:54 - EKG Interpretation EKG: EKG showed tachycardia with PVC, possible left atrial enlargement, inferior infarct age undetermined, possible lateral infarct, ST and T wave abnormality, prolonged QT interval. - Radiology Interpretation CT scan - chest Status: image reviewed by me, report reviewed by me Additional comment: showed no PE. Chest x-ray Status: image reviewed by me, report reviewed by me Additional comment: CXR stable chronic changes, no pneumonia or acute abnormalities. CT scan - head Status: image reviewed by me, report reviewed by me Additional comment: WNL. CT facial bones- no acute fractures. FMR H&P: A/P - Problem List (1) Hypokalemia Current Visit: No Status: Acute Code(s): E87.6 - HYPOKALEMIA (2) Severe dehydration Current Visit: Yes Status: Acute Code(s): E86.0 - DEHYDRATION (3) Syncopal episodes Current Visit: Yes Status: Acute Code(s): R55 - SYNCOPE AND COLLAPSE (4) Nausea Current Visit: Yes Status: Acute Code(s): R11.0 - NAUSEA (5) Major depressive disorder Current Visit: Yes Status: Chronic Code(s): F32.9 - MAJOR DEPRESSIVE DISORDER, SINGLE EPISODE, UNSPECIFIED (6) Hx of past noncompliance Current Visit: Yes Status: Chronic Code(s): Z91.19 - PATIENT'S NONCOMPLIANCE W OTH MEDICAL TREATMENT AND REGIMEN (7) Diabetes mellitus, type II Current Visit: No Status: Chronic (8) CHF (congestive heart failure) Current Visit: No Status: Chronic Code(s): I50.9 - HEART FAILURE, UNSPECIFIED (9) Chronic lung disease Current Visit: No Status: Chronic Code(s): J98.4 - OTHER DISORDERS OF LUNG (10) Fibromyalgia Current Visit: No Status: Chronic (11) Hyperlipidemia Current Visit: No Status: Chronic Code(s): E78.5 - HYPERLIPIDEMIA, UNSPECIFIED (12) Hypertension Current Visit: No Status: Chronic Code(s): I10 - ESSENTIAL (PRIMARY) HYPERTENSION (13) Narcotic dependency, continuous Current Visit: No Status: Chronic Code(s): F11.20 - OPIOID DEPENDENCE, UNCOMPLICATED (14) Nicotine dependence Current Visit: No Status: Chronic Code(s): F17.200 - NICOTINE DEPENDENCE, UNSPECIFIED, UNCOMPLICATED (15) PVD (peripheral vascular disease) with claudication Current Visit: No Status: Chronic Code(s): I73.9 - PERIPHERAL VASCULAR DISEASE, UNSPECIFIED (16) Prolonged Q-T interval on ECG Current Visit: No Status: Chronic Code(s): R94.31 - ABNORMAL ELECTROCARDIOGRAM [ECG] [EKG] (17) Pulmonary hypertension Current Visit: No Status: Chronic Code(s): I27.2 - OTHER SECONDARY PULMONARY HYPERTENSION * DO NOT USE * (18) Tobacco abuse Current Visit: No Status: Chronic Code(s): Z72.0 - TOBACCO USE (19) GERD (gastroesophageal reflux disease) Current Visit: Yes Status: Chronic Code(s): K21.9 - GASTRO-ESOPHAGEAL REFLUX DISEASE WITHOUT ESOPHAGITIS - Plan 53 yo F with multiple medical problems recently discharged from hospital for septic shock 2/2 UTI presents for syncopal episodes with severe dehydration and severe hypokalemia. #Severe Hypokalemia -K of 2.3 -Mag WNL, phos pending -Repleted with 60 meq PO Kdur -2 hr BMP pending -trend potassium -Restarted home K 40 meq PO BID -Concern for medical noncompliance -Concern that she has been doubling her intended daily dose of bumetanide ---reports taking "2 pills 2x daily," need to confirm whether she has 1 mg or 2 mg tablets #Syncope 2/2 hypokalemia vs dehydration vs cardiogenic cause vs infection vs other -2 episodes syncope today, 1 episode two days prior -Likely 2/2 dehydration as patient is clinically dry, vs severe hypokalemia (2.3 ), vs arrhythmia (patient reports tachycardia into 200s) -In ED received fentanyl 25 mcg IV push, zofran 8 mg IV push, KDur 60 meq, and decadron 10 mg IV push -Influenza pending -CT brain WNL -CT facial bones- no acute fractures -D-dimer elevated, CTA chest showed no PE -CXR stable chronic changes, no pneumonia or acute abnormalities -EKG -tachycardia with PVC, possible left atrial enlargement, inferior infarct age undetermined, possible lateral infarct, ST and T wave abnormality, prolonged QT interval -Orthostatics WNL: lying flat: 104/60, P 97; sittin/57, P96; standing 98/ 54, P 97 -Trop .0148, continue to trend -CKMB WNL -WBC elevated to 14.3, but this may also be elevated 2/2 hemoconcentration -Blood culture pending -UA WNL, U Cx pending -UDS positive for opiates, however patient is on prescription opiate -BNP elevated, but lower than last admission -Admit to telemetry inpatient, observe overnight -Gentle IV fluid rehydration in setting of CHF with 500 NS bolus, then NS @ 75 ml/hr -AM CBC, CMP -Trending K #Severe Dehydration -Pt is clinically dry appearing, her lab values also show dehydration -Reports she restricts fluids to about 1800 ml/day -Prescribed bumetanide 2 mg BID, concerned from the history that she may be doubling the dose -Reports losing 25 lbs of "water weight" in last week -Gentle IV fluid rehydration in setting of CHF with 500 NS bolus, then NS @ 75 ml/hr #QTc prolongation -QTc of 497 -May be 2/2 to hypokalemia vs medication vs other #CHF, severe rt sided heart failure -Reports she restricts fluids to about 1800 ml/day -Takes bumetanide 2 mg BID, concerned from the history that she may be doubling the dose -Reports losing 25 lbs of "water weight" in last week since discharge -Hold bumetonide -Sees Dr. Izaguirre -Echocardiogram on 08/10/18: showed a technically difficult exam, EF was 55% to 60%, E/A flow reversal noted, mildly enlarged right ventricle, LA moderately dilated AV sclerotic, moderate aortic regurge, severe tricuspid regurge #Chronic hypoxic respiratory failure 2/2 Interstitial lung disease -3L NC @ home -Satting 91-93% here on 3L NC, reports about the same as at home -PRN O2 to keep sats >88% -Sees Dr. Rodriguez -Continue steroid taper from last visit, 20 mg PO daily for 4 days, then decrease to 10 mg daily #Concern for fracture of left 3rd and 4th fingers -3V XR L Hand #Nausea -Sees Dr. Collins #Cor pulmonale #DM2 -A1C 5.7 on 06/26/18 -Continue home metformin and liraglutide -Hyperglycemia protocol -SSI #PVD -Cool extremities, good cap refill #HTN #HLD #GERD #Fibromyalgia #Major depressive disorder #Tobacco abuse -recently started chantix -quit smoking 13 days ago, prior to that 1.5 ppd #History of noncompliance -per Dr. Rodriguez's note #Constipation #Urinary Retention Code status: full code Dispo: >2 midnights Ppx: Lovenox Diet: CC, HH FMR H&P: Upper Level - Pertinent history 53 yr old female with PMH of near end stage COPD requiring chronic O2 with associated right sided congestive heart failure who presents to the ER after having a syncopal episode x 2 at home. Patient reports having palpitations and noted her heart rate to be 210 on her pulse ox. About 10 min later, she states she suddenly fell in her kitchen after standing and does not know how long she was out. Her witness her second passing out spell and states she fell of a chair. Reports fall on bilateral wrists and having left middle finger pain. She reports just feeling woozy prior to passing out. She has a history of syncope about 7 years ago but none since. Reports going 13 days without smoking. States she wore a heart monitor device for about a week in the past to evaluate for arrhythmias- none noted. Patient states weight has went from 193 to 167 since her last hospital discharge about 11 days prior. She notes taking 2 tabs of bumex twice daily. Does not know the mg dose of her med. - Pertinent findings qTC- 497 Sinus tach ROS: see above PE: Gen: alert and oriented, no acute distress. Heart: RRR, no murmurs, rubs, gallops Lungs: CTAB, no wheeze, rhales, rhonchi, distant breath sounds Ext: no edema bilaterally Neuro: cranial nerves 2-12 intact. No dysdiadichokinesia, normal finger to nose - Plan Date/Time: 08/27/18 0028 I, [Rosio Chambers], have evaluated this patient and agree with findings/plan as outlined by internal recruiter resident. Pertinent changes/additions are listed here. 53 yr old female with syncope Hypokalemia -most likely 2/2 increase in bumex dosing over last week. Incorrectly doubled her daily dose of bumex -repleted with 60 mEq in ER -recheck in 2 hours -Will aggressively replete as needed Syncope possibly 2/2 hypovolemia vs arrhythmia vs electrolyte abnormality vs valvular abnormality -No evidence of orthostatic hypotension -Brain CT scan wnl -neg CTA chest for PE -will monitor BMP closely and administer fluids -monitor on Tele Hypovolemia most likely 2/2 aggressive diuretic use -will give 500 ml bolus and run fluids at 75 ml/hr -strict I/O Congestive heart failure, not in exacerbation -recent echo in 07/2018 reveals diastolic dysfunction with EF 55-60% Near end-stage COPD requiring home O2 and respiratory bronchiolitis -cont home O2 at 3 lts and titrate as needed for O2 of 88% HTN -currently low BP in mid 100s -will hold BP meds for now and restart as volume status improves HLD -cont home meds Type 2 Diabetes -cont home meds -q ACHS Accuchecks -mild sliding scale insulin as needed Strong history of tobacco use -cont chantix Medical noncompliance -history of longterm medical noncompliance -evidenced by incorrect use of bumex Major depression disorder -cont Cymbalta Fibromyalgia -cont home duloxetine and pain meds PCP: April Code Status: Full DVT ppx: lovenox Diet: HH/CC Addendum - Attending - Attending Attestation Date/Time: 08/27/18 1120 I personally evaluated the patient and discussed the management with Dr. Gris Woodruff I agree with the History, Examination, Assessment and Plan documented above with any addition or exceptions noted below. 53 yo with DM,PVD,COPD, ILD steroid dependant recent smoking cessation with Cor pulmonale with repeated syncopal episode found with hypokalemia and fluid depleted status will observe in telemetry for arrythmogenic etiology consider RV dysplasia. Gentle fluid replacement monitor K and Mg. Noted EKG changes
[2018-08-27] MEDS ORDERED: PROVENTIL INHALER 6.7 G (200 INHALATIONS) INH PRN (00:31)
[2018-08-27 01:15] LABS: Troponin I 0.051 ng/mL (< 0.028)
[2018-08-27 02:45] LABS: Potassium 3.7 mmol/L (3.5-5.1)
[2018-08-27] MEDS ORDERED: Dextrose 5% in Water 1,000 ML IV PRN (03:12)
[2018-08-27] MEDS ORDERED: Enoxaparin Sodium 40 MG/0.4 ML SYRINGE SC SCH (03:12)
[2018-08-27] MEDS ORDERED: Acetaminophen 325 MG TAB PO PRN (03:12)
[2018-08-27] MEDS ORDERED: Dextrose 50% Abboject 50 ML SYRINGE SLOW IVP PRN (03:12)
[2018-08-27] MEDS ORDERED: Sodium Chloride 0.9% 500 ML IV SCH (03:12)
[2018-08-27 03:51] LABS: #Basophils 0.1 thou/uL (0.0-0.2); #Lymphocytes 1.5 thou/uL (1.20-3.40); #Monocytes 0.2 thou/uL (0.11-0.59); #Neutrophils 11.9 thou/uL (1.40-6.50); %Basophils 1.1 % (0.0-1.0); %Eosinophils 0.2 % (0.0-10.0); %Lymphocytes 11.1 % (21.0-51.0); %Monocytes 1.5 % (0.0-10.0); %Neutrophils 86.1 % (42.0-75.0); Hemoglobin 14.9 g/dL (12.0-16.0); Mean Corpuscular HGB CONC 30.9 g/dL (32.0-36.0); Mean Corpuscular Hemoglobin 24.2 pg (27.0-31.0); Mean Corpuscular Volume 78.3 fL (78.0-98.0); Platelet Count 265 thou/uL (130-400); RBC Distribution Width 20.6 % (11.5-14.5); Red Blood Cell (RBC) Count 6.15 mill/uL (4.20-5.40); White Blood Cell (WBC) Count 13.8 thou/uL (4.8-10.8)
[2018-08-27 03:52] LABS: Phosphorus 3.7 mg/dL (2.3-4.7)
[2018-08-27 03:53] LABS: BUN (Urea Nitrogen) 55 mg/dL (9.8-20.1); Calc. Creatinine Clearance 62 mL/min (70-130); Calcium 10.2 mg/dL (7.8-10.44); Estimated GFR-MDRD 45; Glucose 290 mg/dL (70-105)
[2018-08-27 03:59] LABS: Troponin I 0.064 ng/mL (< 0.028)
[2018-08-27 04:02] LABS: Anion Gap 26 mmol/L (10-20); Carbon Dioxide 35 mmol/L (22-29); Chloride 76 mmol/L (98-107); Sodium 133 mmol/L (136-145)
[2018-08-27] MEDS: Sodium Chloride 0.9% 1,000 ML IV SCH ×3 (04:05→18:41)
[2018-08-27] MEDS: HYDROcodone/Acetaminophen 10/325 mg Tablet PO PRN ×2 (04:06→18:40)
[2018-08-27] MEDS: Ipratropium Bromide 2.5 ml Neb NEB SCH ×4 (04:55→19:10)
[2018-08-27] MEDS: Albuterol Sulfate 2.5 mg/3 ml Neb NEB SCH ×3 (07:01→19:08)
[2018-08-27 07:20] LABS: Troponin I 0.042 ng/mL (< 0.028)
--- NOTE | 2018-08-27 08:13 | RAD ---
TWO VIEWS LEFT HIP: DATE: 08/27/2018. HISTORY: The patient is post fall. Admission for sepsis. FINDINGS: There is residual contrast within the urinary bladder limiting evaluation of the superior pubic ramus and the pubic bone, no displaced fracture is seen in this region. No additional fracture is seen, a nd there is no evidence of a dislocation. IMPRESSION: No acute osseous abnormality. POS: [facility]
--- NOTE | 2018-08-27 08:25 | RAD ---
THREE VIEWS LEFT MIDDLE FINGER: DATE: 08/27/2018. HISTORY: Injury after a fall. FINDINGS: There is no evidence of a fracture or dislocation. Radiopaque density is seen at the dorsal aspect o f the hand to the level of the metacarpals. This is likely related to IV tubing. Overlying dressing material is present. IMPRESSION: No acute fracture involving the left middle finger. POS: [facility]
[2018-08-27] MEDS ORDERED: Liraglutide [Victoza 2-Pak] 1.2 MG SC SCH (09:00)
[2018-08-27] MEDS ORDERED: Spiriva 18 MCG CAP (Box of 5 Caps) INH SCH (09:00)
[2018-08-27] MEDS ORDERED: Bumetanide 1 MG TAB PO SCH (09:00)
[2018-08-27] MEDS: metFORMIN 500 MG TAB PO SCH ×2 (09:06→17:02)
[2018-08-27] MEDS: Aspirin 81 mg Enteric Coated Tablet PO SCH (09:06)
[2018-08-27] MEDS: DULoxetine 30 MG CAP PO SCH ×2 (09:06→21:40)
[2018-08-27] MEDS: Potassium Chloride 20 MEQ TAB PO SCH ×2 (09:07→21:38)
[2018-08-27] MEDS: Senokot S 8.6-50 MG TAB PO SCH ×2 (09:07→21:38)
[2018-08-27] MEDS: Gabapentin 300 MG CAP PO SCH ×3 (09:07→21:39)
[2018-08-27] MEDS: Magnesium Oxide 400 MG TAB PO SCH (09:07)
[2018-08-27] MEDS: predniSONE 5 MG TAB PO SCH (09:07)
[2018-08-27] MEDS: Varenicline Tartrate 0.5 MG TAB PO SCH ×2 (11:44→21:35)
[2018-08-27] MEDS: Insulin Regular 300 UNITS/3 ML VIAL SC PRN (17:55)
[2018-08-27] MEDS: tiZANidine HCl 4 MG TAB PO SCH (21:36)
[2018-08-27] MEDS: Pravastatin Sodium 20 MG TAB PO SCH (21:39)
[2018-08-28] MEDS: Ipratropium Bromide 2.5 ml Neb NEB SCH ×2 (00:27→07:19)
[2018-08-28] MEDS: HYDROcodone/Acetaminophen 10/325 mg Tablet PO PRN ×2 (03:09→14:02)
[2018-08-28 05:45] LABS: #Basophils 0.1 thou/uL (0.0-0.2); #Eosinphils 0.1 thou/uL (0.0-0.7); #Monocytes 0.7 thou/uL (0.11-0.59); #Neutrophils 4.9 thou/uL (1.40-6.50); %Basophils 1.1 % (0.0-1.0); %Eosinophils 0.7 % (0.0-10.0); %Monocytes 6.7 % (0.0-10.0); %Neutrophils 45.5 % (42.0-75.0); Hemoglobin 12.2 g/dL (12.0-16.0); Mean Corpuscular HGB CONC 30.6 g/dL (32.0-36.0); Mean Corpuscular Hemoglobin 24.1 pg (27.0-31.0); Mean Corpuscular Volume 78.8 fL (78.0-98.0); Platelet Count 185 thou/uL (130-400); RBC Distribution Width 19.7 % (11.5-14.5); Red Blood Cell (RBC) Count 5.07 mill/uL (4.20-5.40); White Blood Cell (WBC) Count 10.9 thou/uL (4.8-10.8)
[2018-08-28 06:01] LABS: ALT (SGPT) 10 U/L (8-55); AST (SGOT) 15 U/L (5-34); Albumin 3.6 g/dL (3.5-5.0); Alkaline Phosphatase 51 U/L (40-150); Anion Gap 14 mmol/L (10-20); BUN (Urea Nitrogen) 42 mg/dL (9.8-20.1); Bilirubin, Total 0.7 mg/dL (0.2-1.2); Calc. Creatinine Clearance 96 mL/min (70-130); Calcium 9.4 mg/dL (7.8-10.44); Carbon Dioxide 35 mmol/L (22-29); Chloride 88 mmol/L (98-107); Estimated GFR-MDRD 69; Globulin 2.8 g/dL (2.4-3.5); Glucose 157 mg/dL (70-105); Potassium 3.3 mmol/L (3.5-5.1); Protein, Total 6.4 g/dL (6.0-8.3); Sodium 134 mmol/L (136-145)
--- NOTE | 2018-08-28 06:58 | PDOC.FM ---
- Subjective Subjective: No events overnight. Patient resting comfortably in bed this morning. No complaints or concerns at this time. Patient denies any syncopal episodes or dizziness. - Objective Vital Signs & Weight: Vital Signs (12 hours) Temp Pulse Resp BP Pulse Ox 08/28/18 03:23 98.1 F 94 16 104/51 L 92 L 08/28/18 00:27 87 14 95 08/27/18 19:45 94 L 08/27/18 19:08 105 H 16 92 L Weight Weight 81.556 kg I&O: 08/26/18 08/27/18 08/28/18 06:59 06:59 06:59 Intake Total 750 1850 Output Total 200 400 Balance 550 1450 Result Diagrams: 08/28/18 04:54 08/28/18 04:54 Phys Exam - Physical Examination Constitutional: NAD HEENT: PERRLA, moist MMs, sclera anicteric Neck: full ROM Respiratory: clear to auscultation bilateral Cardiovascular: RRR, no significant murmur, no rub Gastrointestinal: soft, non-tender, no distention, positive bowel sounds Musculoskeletal: no edema Neurological: non-focal, moves all 4 limbs Psychiatric: normal affect, A&O x 3 Skin: no rash Dx/Plan (1) Syncopal episodes Code(s): R55 - SYNCOPE AND COLLAPSE Status: Acute (2) GERD (gastroesophageal reflux disease) Code(s): K21.9 - GASTRO-ESOPHAGEAL REFLUX DISEASE WITHOUT ESOPHAGITIS Status: Chronic (3) Hx of past noncompliance Code(s): Z91.19 - PATIENT'S NONCOMPLIANCE W OTH MEDICAL TREATMENT AND REGIMEN Status: Chronic (4) Major depressive disorder Code(s): F32.9 - MAJOR DEPRESSIVE DISORDER, SINGLE EPISODE, UNSPECIFIED Status : Chronic (5) Contusion of right knee Code(s): S80.01XA - CONTUSION OF RIGHT KNEE, INITIAL ENCOUNTER Status: Acute Qualifiers: Encounter type: subsequent encounter Qualified Code(s): S80.01XD - Contusion of right knee, subsequent encounter (6) Diabetes Code(s): E11.9 - TYPE 2 DIABETES MELLITUS WITHOUT COMPLICATIONS Status: Acute (7) Hypokalemia Code(s): E87.6 - HYPOKALEMIA Status: Acute (8) CHF (congestive heart failure) Code(s): I50.9 - HEART FAILURE, UNSPECIFIED Status: Chronic (9) COPD (chronic obstructive pulmonary disease) Status: Chronic Qualifiers: (10) Chronic lung disease Code(s): J98.4 - OTHER DISORDERS OF LUNG Status: Chronic (11) Chronic pain syndrome Code(s): G89.4 - CHRONIC PAIN SYNDROME Status: Chronic (12) Diabetes mellitus, type II Status: Chronic (13) Fibromyalgia Status: Chronic (14) Hypertension Code(s): I10 - ESSENTIAL (PRIMARY) HYPERTENSION Status: Chronic (15) Nicotine dependence Code(s): F17.200 - NICOTINE DEPENDENCE, UNSPECIFIED, UNCOMPLICATED Status: Chronic (16) Osteopenia Code(s): M85.80 - OTH DISRD OF BONE DENSITY AND STRUCTURE, UNSPECIFIED SITE Status: Chronic (17) PVD (peripheral vascular disease) with claudication Code(s): I73.9 - PERIPHERAL VASCULAR DISEASE, UNSPECIFIED Status: Chronic (18) Pulmonary hypertension Code(s): I27.2 - OTHER SECONDARY PULMONARY HYPERTENSION * DO NOT USE * Status : Chronic (19) RADHA (acute kidney injury) Code(s): N17.9 - ACUTE KIDNEY FAILURE, UNSPECIFIED Status: Resolved - Plan Plan: 53 yo F with multiple medical problems recently discharged from hospital for septic shock 2/2 UTI presents for syncopal episodes with severe dehydration and severe hypokalemia. Severe Hypokalemia - K of 2.3 -> 4 -> 3.3 - Will continue to replace as needed - Restarted home K 40 meq PO BID - Concern for medical noncompliance - Will consider decreasing dosage of bumex as this may be the cause of decreased K as well as dehydration Syncope 2/2 hypokalemia vs dehydration vs cardiogenic cause vs infection vs other - Likely 2/2 dehydration as patient is clinically dry, vs severe hypokalemia ( 2.3), vs arrhythmia (patient reports tachycardia into 200s) - In ED received fentanyl 25 mcg IV push, zofran 8 mg IV push, KDur 60 meq, and decadron 10 mg IV push - Influenza neg - CT brain WNL; CT facial bones- no acute fractures; Xray hand and hip neg for fracture - D-dimer elevated, CTA chest showed no PE - CXR stable chronic changes, no pneumonia or acute abnormalities - EKG -tachycardia with PVC, possible left atrial enlargement, inferior infarct age undetermined, possible lateral infarct, ST and T wave abnormality, prolonged QT interval -> patient continued to have occasional PVCs/PACs - Orthostatics WNL: lying flat: 104/60, P 97; sittin/57, P96; standing 98/ 54, P 97 - Trop .0148 -> downtrended - CKMB WNL - WBC elevated to 14.3 -> 10.9 -Blood culture pending -UA WNL, U Cx pending - UDS positive for opiates, however patient is on prescription opiate - BNP elevated, but lower than last admission Severe Dehydration - Pt is clinically dry appearing, her lab values also show dehydration - Reports she restricts fluids to about 1800 ml/day - Prescribed bumetanide 2 mg BID, concerned from the history that she may be doubling the dose - Reports losing 30 lbs of "water weight" in last week - patient received gentle IV fluid rehydration QTc prolongation, resolved - QTc of 497 - repeat EKG showed QTc wnl - May be 2/2 to hypokalemia vs medication vs other CHF, severe rt sided heart failure - Reports she restricts fluids to about 1800 ml/day - Takes bumetanide 2 mg BID - will consider decreasing this dose - Reports losing 30 lbs of "water weight" in last week since discharge - Hold bumetonide for now; will consider restarting at decreased dose - Sees Dr. Izaguirre - Echocardiogram on 08/10/18: showed a technically difficult exam, EF was 55% to 60%, E/A flow reversal noted, mildly enlarged right ventricle, LA moderately dilated AV sclerotic, moderate aortic regurge, severe tricuspid regurge Chronic hypoxic respiratory failure 2/2 Interstitial lung disease - 3L NC @ home - Satting 91-93% here on 3L NC, reports about the same as at home - PRN O2 to keep sats >88% - Sees Dr. Rodriguez - Continue steroid taper from last visit, 20 mg PO daily for 4 days, then decrease to 10 mg daily #Nausea - Sees Dr. Collins #DM2 - A1C 5.7 on 06/26/18 - Continue home metformin and liraglutide - Hyperglycemia protocol - SSI #Tobacco abuse - recently started chantix - quit smoking 13 days ago, prior to that 1.5 ppd #History of noncompliance - per Dr. Rodriguez's note Chronic conditions include: - urinary retention, constipation, MDD, fibromyalgia, GERD, HLD, HTN, PVD, cor pulmonale Code status: full code Dispo: >2 midnights Ppx: Lovenox Diet: CC, HH Addendum - Attending - Attending Attestation Date/Time: 08/28/18 [id number] I personally evaluated the patient and discussed the management with Dr. Rivera I agree with the History, Examination, Assessment and Plan documented above with any addition or exceptions noted below.No presyncopal symptoms fluid status precarious will adjust RX balance fluid restriction with diuretic Potassium will be replaced. stable on telemetry advance activity in anticipation of discharge soon.
[2018-08-28] MEDS: Albuterol Sulfate 2.5 mg/3 ml Neb NEB SCH (07:20)
[2018-08-28 07:41] LABS: Magnesium 2.3 mg/dL (1.6-2.6); Phosphorus 2.2 mg/dL (2.3-4.7)
[2018-08-28] MEDS: Enoxaparin Sodium 40 MG/0.4 ML SYRINGE SC SCH (08:48)
[2018-08-28] MEDS: Insulin Regular 300 UNITS/3 ML VIAL SC PRN ×2 (08:48→17:30)
[2018-08-28] MEDS: Gabapentin 300 MG CAP PO SCH ×3 (08:49→21:08)
[2018-08-28] MEDS ORDERED: Melatonin 3 MG TAB PO PRN (08:49)
[2018-08-28] MEDS: Varenicline Tartrate 0.5 MG TAB PO SCH ×2 (08:49→21:09)
[2018-08-28] MEDS: Senokot S 8.6-50 MG TAB PO SCH ×2 (08:49→21:07)
[2018-08-28] MEDS: Potassium Chloride 20 MEQ TAB PO SCH ×2 (08:49→21:09)
[2018-08-28] MEDS: Magnesium Oxide 400 MG TAB PO SCH (08:50)
[2018-08-28] MEDS: DULoxetine 30 MG CAP PO SCH ×2 (08:50→21:07)
[2018-08-28] MEDS: predniSONE 5 MG TAB PO SCH (08:50)
[2018-08-28] MEDS: metFORMIN 500 MG TAB PO SCH ×2 (08:50→17:30)
[2018-08-28] MEDS: Aspirin 81 mg Enteric Coated Tablet PO SCH (08:50)
[2018-08-28] MEDS ORDERED: Bumetanide 1 MG TAB PO SCH (11:15)
[2018-08-28 11:58] VITALS: BMI 30.8
[2018-08-28] MEDS: tiZANidine HCl 4 MG TAB PO SCH (21:07)
[2018-08-28] MEDS: Pravastatin Sodium 20 MG TAB PO SCH (21:09)
[2018-08-29] MEDS: HYDROcodone/Acetaminophen 10/325 mg Tablet PO PRN ×2 (00:18→11:33)
--- NOTE | 2018-08-29 07:16 | PDOC.FM ---
- Subjective Subjective: No overnight events. Patient reports feeling well this morning. Patient states she feels ready to go home. She has been participating in PT and feels as if she is benefitting greatly and gaining strength. Denies SOB, chest or abdominal pain, LE swelling, no NVD. States she is urinating normally. - Objective Vital Signs & Weight: Vital Signs (12 hours) Temp Pulse Resp BP BP Pulse Ox 08/29/18 03:00 98.0 F 100 12 116/58 L 93 L 08/28/18 23:49 97 16 100/55 L 91 L 08/28/18 20:00 106 H 20 106/80 95 Weight Admit Weight 76.3 kg Weight 83.053 kg I&O: 08/28/18 08/29/18 08/30/18 06:59 06:59 06:59 Intake Total 1850 1550 Output Total 400 2650 Balance 1450 -1100 Result Diagrams: 08/29/18 06:56 08/29/18 06:54 Phys Exam - Physical Examination Constitutional: NAD HEENT: PERRLA, moist MMs, sclera anicteric Neck: full ROM Respiratory: clear to auscultation bilateral Cardiovascular: RRR Gastrointestinal: soft Musculoskeletal: no edema Neurological: non-focal, moves all 4 limbs Psychiatric: normal affect, A&O x 3 Skin: no rash Dx/Plan (1) Syncopal episodes Code(s): R55 - SYNCOPE AND COLLAPSE Status: Acute (2) GERD (gastroesophageal reflux disease) Code(s): K21.9 - GASTRO-ESOPHAGEAL REFLUX DISEASE WITHOUT ESOPHAGITIS Status: Chronic (3) Hx of past noncompliance Code(s): Z91.19 - PATIENT'S NONCOMPLIANCE W OTH MEDICAL TREATMENT AND REGIMEN Status: Chronic (4) Major depressive disorder Code(s): F32.9 - MAJOR DEPRESSIVE DISORDER, SINGLE EPISODE, UNSPECIFIED Status : Chronic (5) Contusion of right knee Code(s): S80.01XA - CONTUSION OF RIGHT KNEE, INITIAL ENCOUNTER Status: Acute Qualifiers: Encounter type: subsequent encounter Qualified Code(s): S80.01XD - Contusion of right knee, subsequent encounter (6) Diabetes Code(s): E11.9 - TYPE 2 DIABETES MELLITUS WITHOUT COMPLICATIONS Status: Acute (7) Hypokalemia Code(s): E87.6 - HYPOKALEMIA Status: Acute (8) CHF (congestive heart failure) Code(s): I50.9 - HEART FAILURE, UNSPECIFIED Status: Chronic (9) COPD (chronic obstructive pulmonary disease) Status: Chronic Qualifiers: (10) Chronic lung disease Code(s): J98.4 - OTHER DISORDERS OF LUNG Status: Chronic (11) Chronic pain syndrome Code(s): G89.4 - CHRONIC PAIN SYNDROME Status: Chronic (12) Diabetes mellitus, type II Status: Chronic (13) Fibromyalgia Status: Chronic (14) Hypertension Code(s): I10 - ESSENTIAL (PRIMARY) HYPERTENSION Status: Chronic (15) Nicotine dependence Code(s): F17.200 - NICOTINE DEPENDENCE, UNSPECIFIED, UNCOMPLICATED Status: Chronic (16) Osteopenia Code(s): M85.80 - OTH DISRD OF BONE DENSITY AND STRUCTURE, UNSPECIFIED SITE Status: Chronic (17) PVD (peripheral vascular disease) with claudication Code(s): I73.9 - PERIPHERAL VASCULAR DISEASE, UNSPECIFIED Status: Chronic (18) Pulmonary hypertension Code(s): I27.2 - OTHER SECONDARY PULMONARY HYPERTENSION * DO NOT USE * Status : Chronic - Plan Plan: 53 yo F with multiple medical problems recently discharged from hospital for septic shock 2/2 UTI presents for syncopal episodes with severe dehydration and severe hypokalemia. Severe Hypokalemia - K of 2.3 -> 4 -> 3.3 - Will continue to replace as needed; BMP pending for 08/29/18 - Restarted home K 40 meq PO BID - Concern for medical noncompliance - Decreased dosage of bumex as this may be the cause of decreased K as well as dehydration; will monitor fluid status Syncope 2/2 hypokalemia vs dehydration vs cardiogenic cause vs infection vs other - Likely 2/2 dehydration as patient is clinically dry, vs severe hypokalemia ( 2.3), vs arrhythmia (patient reports tachycardia into 200s) - WBC elevated to 14.3 -> 10.9 -Blood culture pending -UA WNL, U Cx pending - UDS positive for opiates, however patient is on prescription opiate - BNP elevated, but lower than last admission Severe Dehydration - Pt is clinically dry appearing, her lab values also show dehydration - Reports she restricts fluids to about 1800 ml/day - Prescribed bumetanide 2 mg BID, may have been cause - decreased dose - Reports losing 30 lbs of "water weight" in last week QTc prolongation, resolved - QTc of 497 - repeat EKG showed QTc wnl - May be 2/2 to hypokalemia vs medication vs other CHF, severe rt sided heart failure - Reports she restricts fluids to about 1800 ml/day - Decreased bumetanide dose - Reports losing 30 lbs of "water weight" in last week since discharge - Sees Dr. Izaguirre - Echocardiogram on 08/10/18: showed a technically difficult exam, EF was 55% to 60%, E/A flow reversal noted, mildly enlarged right ventricle, LA moderately dilated AV sclerotic, moderate aortic regurge, severe tricuspid regurge Chronic hypoxic respiratory failure 2/2 Interstitial lung disease - 3L NC @ home - Satting 91-93% here on 3L NC, reports about the same as at home - PRN O2 to keep sats >88% - Sees Dr. Rodriguez - Continue steroid taper from last visit, 20 mg PO daily for 4 days, then decrease to 10 mg daily Nausea - Sees Dr. Collins DM2 - A1C 5.7 on 06/26/18 - Continue home metformin and liraglutide - Hyperglycemia protocol - SSI Tobacco abuse - recently started chantix - quit smoking 13 days ago, prior to that 1.5 ppd History of noncompliance - per Dr. Rodriguez's note Chronic conditions include: - urinary retention, constipation, MDD, fibromyalgia, GERD, HLD, HTN, PVD, cor pulmonale Code status: full code Dispo: >2 midnights Ppx: Lovenox Diet: CC, NICOLE Addendum - Attending - Attending Attestation Date/Time: 08/29/18 [id number] I personally evaluated the patient and discussed the management with Dr. Rivera I agree with the History, Examination, Assessment and Plan documented above with any addition or exceptions noted below.Patient able to void stable dismiss f/u closely outpatient discussed ideal Dry Weight with patient encouraged continued tobacco abstinence.
[2018-08-29 07:27] LABS: #Basophils 0.2 thou/uL (0.0-0.2); #Eosinphils 0.2 thou/uL (0.0-0.7); #Monocytes 0.8 thou/uL (0.11-0.59); #Neutrophils 4.7 thou/uL (1.40-6.50); %Basophils 1.6 % (0.0-1.0); %Lymphocytes 46.4 % (21.0-51.0); %Monocytes 7.1 % (0.0-10.0); %Neutrophils 42.9 % (42.0-75.0); Hemoglobin 12.4 g/dL (12.0-16.0); Mean Corpuscular HGB CONC 30.1 g/dL (32.0-36.0); Mean Corpuscular Hemoglobin 24.1 pg (27.0-31.0); Mean Platelet Volume 11.4 fL (7.4-10.4); Platelet Count 186 thou/uL (130-400); RBC Distribution Width 20.3 % (11.5-14.5); Red Blood Cell (RBC) Count 5.14 mill/uL (4.20-5.40); White Blood Cell (WBC) Count 10.9 thou/uL (4.8-10.8)
[2018-08-29 08:17] VITALS: TEMP 97.4
[2018-08-29 08:52] LABS: Calcium 9.3 mg/dL (7.8-10.44); Chloride 92 mmol/L (98-107); Potassium 3.6 mmol/L (3.5-5.1); Sodium 138 mmol/L (136-145)
[2018-08-29 08:53] LABS: Glucose 138 mg/dL (70-105)
[2018-08-29 08:54] LABS: Anion Gap 16 mmol/L (10-20); Carbon Dioxide 34 mmol/L (22-29)
[2018-08-29 08:56] LABS: Calc. Creatinine Clearance 100 mL/min (70-130); Estimated GFR-MDRD 71
[2018-08-29 08:57] LABS: BUN (Urea Nitrogen) 33 mg/dL (9.8-20.1)
[2018-08-29] MEDS ORDERED: Bumetanide 1 MG TAB PO SCH (09:00)
[2018-08-29] MEDS: Gabapentin 300 MG CAP PO SCH (09:45)
[2018-08-29] MEDS: Varenicline Tartrate 0.5 MG TAB PO SCH (09:46)
[2018-08-29] MEDS: Senokot S 8.6-50 MG TAB PO SCH (09:46)
[2018-08-29] MEDS: Insulin Regular 300 UNITS/3 ML VIAL SC PRN (09:47)
[2018-08-29] MEDS: Potassium Chloride 20 MEQ TAB PO SCH (09:47)
[2018-08-29] MEDS: Enoxaparin Sodium 40 MG/0.4 ML SYRINGE SC SCH (09:47)
[2018-08-29] MEDS: DULoxetine 30 MG CAP PO SCH (09:48)
[2018-08-29] MEDS: predniSONE 5 MG TAB PO SCH (09:48)
[2018-08-29] MEDS: metFORMIN 500 MG TAB PO SCH (09:48)
[2018-08-29] MEDS: Magnesium Oxide 400 MG TAB PO SCH (09:48)
[2018-08-29] MEDS: Aspirin 81 mg Enteric Coated Tablet PO SCH (09:48)
[2018-08-29 12:03] VITALS: BP 114/56
--- NOTE | 2018-08-30 11:23 | DIS ---
DATE OF ADMISSION: 08/26/2018 DATE OF DISCHARGE: 08/29/2018 RESIDENT: Lakesha Rivera MD ADMITTING ATTENDING: Wale Lynch MD DISCHARGE ATTENDING: Wale Lynch MD CONSULTS: 1. Case Management. 2. PT/OT. PROCEDURES: None. PRIMARY DIAGNOSES: 1. Severe hypokalemia. 2. Syncope secondary to hypokalemia versus dehydration. 3. Severe dehydration. 4. QTc prolongation, resolved. SECONDARY DIAGNOSES: 1. Congestive heart failure with right-sided heart failure. 2. Chronic hypoxic respiratory failure secondary to interstitial lung disease. 3. Nausea. 4. Diabetes, type 2. 5. Tobacco abuse. 6. History of noncompliance. 7. Urinary retention. 8. Constipation. 9. Fibromyalgia. 10. Major depressive disorder. 11. Gastroesophageal reflux disease. 12. Hyperlipidemia. 13. Hypertension. 14. Peripheral vascular disease. 15. Cor pulmonale. DISCHARGE MEDICATIONS: 1. Bumex 2 mg oral daily. 2. Melatonin 3 mg oral at bedtime as needed. 3. Pravastatin 20 mg oral every evening. 4. Aspirin 81 mg oral daily. 5. Albuterol 3 mL nebulizer 3 times daily. 6. ProAir 2 puffs inhalation 3 times daily as needed. 7. Spiriva 18 mcg inhalation daily. 8. Victoza 1.2 mg subcutaneous daily. 9. Metformin 1000 mg oral twice daily with meals. 10. Cymbalta 30 mg oral twice daily. 11. Magnesium 400 mg oral daily. 12. Tizanidine 2 tab oral at bedtime. 13. B[place]ide 10/325 one each oral 4 times daily as needed. 14. Potassium chloride 40 mEq oral twice daily. 15. Gabapentin 2 tab oral 3 times daily. 16. Chantix 1 tab oral twice daily. 17. Movantik 1 tab oral daily. 18. Levaquin 750 mg oral in the morning. 19. Nicoderm 21 mg transdermal daily. 20. Prednisone 10 mg oral as directed. Discontinued medications: Bumex 2 tabs oral twice daily. HISTORY OF PRESENT ILLNESS/HOSPITAL COURSE: This is a 53-year-old female with multiple medical problems and recently discharged from the hospital after resolution of septic shock secondary to UTI. She presents for multiple syncopal episodes. The patient stated that she had, had dizziness for the past few days and had passed out twice on the day of admission after standing up in the home. The patient states that she fell to the floor, hit her head and had some bruising in the hand. The patient states that she felt her heart was racing and said her heart rate was in the 200s on her pulse oximeter. The patient reports that she lost 25 pounds of water weight since discharge. In the ED, the patient received fentanyl, Zofran, potassium, and Decadron. The patient had a CT brain that showed no abnormality, CT facial bones showed no fractures. The patient was found to have an elevated D-dimer and CTA chest showed no pulmonary embolism. Chest x-ray showed stable chronic images with no pneumonia or acute abnormalities. EKG showed tachycardia with PVCs and possible left atrial enlargement and prolonged QT interval. The patient was found to have a potassium of 2.3 on arrival. This was replaced as needed throughout her hospitalization. It is thought that the patient's syncopal episode was likely due to the patient's hypokalemia versus dehydration. The patient has been taking 2 mg of Bumex twice a day with significant weight loss. The patient's Bumex dose was decreased during her hospitalization to 2 mg daily. The patient instructed to weigh herself at home consistently and have close followup as outpatient. The patient had an elevated white blood cell count of 14.3 on arrival. Blood and urine culture showed no growth at 48 hours. The patient was given IV fluid rehydration during her stay with improvement of symptoms. The patient denied recurrence of dizziness throughout her hospitalization. The patient has a history of cor pulmonale and sees Dr. Izaguirre as well as the [facility]. The patient had an ejection fraction of 55% to 60% on echo done on 08/10/2018. The patient states she will follow up with [facility] Failure [facility] upon discharge. The patient has chronic hypoxic respiratory failure secondary to interstitial lung disease and remained on her 3 L nasal cannula, which she is on at home as well. The patient sees Dr. Hatch for this issue and she states she will follow up with them as outpatient. The patient was continued on her steroid taper throughout her stay. The patient reported falling on her left hand and an x-ray revealed no fracture. The patient has a history of tobacco use and has recently been started on Chantix. She was on day 15 on day of discharge. No tobacco use. The patient also has a history of urinary retention and had previously been self-cathing at home. Throughout her hospitalization, the patient was urinating normally with no issues. The patient is to follow up as outpatient with Urology. DISPOSITION: Stable. DISCHARGE INSTRUCTIONS: 1. Location: Home. 2. Activity: Ad gallo. 3. Diet: Heart healthy. 4. Followup: Follow up with PCP within 1 week, with Pulmonology within 2 weeks, and Urology within a month. Job ID: [id number]
== END 2018-08-29 14:39 | disposition home or self-care (01) | DRG 641 ==
LOC: ERS 20:34 → 2NO 23:08
PROVIDERS: ADMIT Family Medicine; ATTEND Family Medicine
DX: E87.6 Hypokalemia (principal); F11.20 Opioid dependence, uncomplicated; J96.11 Chronic respiratory failure with hypoxia; N17.9 Acute kidney failure, unspecified; E86.0 Dehydration; F32.9 Major depressive disorder, single episode, unspecified; Z91.19 Patient's noncompliance with other medical treatment and regimen; E11.51 Type 2 diabetes mellitus with diabetic peripheral angiopathy without gangrene; I11.0 Hypertensive heart disease with heart failure; I50.9 Heart failure, unspecified; M79.7 Fibromyalgia; E78.5 Hyperlipidemia, unspecified; I45.81 Long QT syndrome; I27.20 Pulmonary hypertension, unspecified; K21.9 Gastro-esophageal reflux disease without esophagitis; S80.01XA Contusion of right knee, initial encounter; J44.9 Chronic obstructive pulmonary disease, unspecified; M85.80 Other specified disorders of bone density and structure, unspecified site
CPT/HCPCS: 36415; 36416; 70450; 70486; 71045; 71275; 80048; 80053; 80306; 81003; 82088; 82330; 82533; 82553; 82803; 83735; 83880; 84100; 84132; 84244; 84484; 85025; 85379; 87040; 87086; 87804; 93005; 93010; 94760; 96374; 96375; G8978-GP-CI; G8979-GP-CI; G8980-GP-CI; J1100; J1650; J1815; J2405; J3010; J7611

== ENCOUNTER 2018-09-11 05:17 | Inpatient (IN) | payer OTHER ==
[2018-09-11] MEDS ORDERED: methylPREDNISolone Sod Succ/PF 125 MG/2 ML VIAL ONE (05:55)
[2018-09-11 06:22] LABS: #Basophils 0.1 thou/uL (0.0-0.2); #Eosinphils 0.2 thou/uL (0.0-0.7); #Lymphocytes 4.6 thou/uL (1.20-3.40); #Monocytes 0.5 thou/uL (0.11-0.59); #Neutrophils 4.4 thou/uL (1.40-6.50); %Basophils 1.5 % (0.0-1.0); %Eosinophils 2.2 % (0.0-10.0); %Lymphocytes 47.1 % (21.0-51.0); %Monocytes 4.8 % (0.0-10.0); %Neutrophils 44.4 % (42.0-75.0); Hemoglobin 14.4 g/dL (12.0-16.0); Mean Corpuscular HGB CONC 31.4 g/dL (32.0-36.0); Mean Corpuscular Hemoglobin 24.6 pg (27.0-31.0); Mean Corpuscular Volume 78.1 fL (78.0-98.0); Mean Platelet Volume 6.7 fL (7.4-10.4); Platelet Count 211 thou/uL (130-400); RBC Distribution Width 21.7 % (11.5-14.5); Red Blood Cell (RBC) Count 5.85 mill/uL (4.20-5.40); White Blood Cell (WBC) Count 9.8 thou/uL (4.8-10.8)
[2018-09-11 06:23] LABS: Bilirubin Negative (Negative); Blood, Urine Negative (Negative); Clarity CLEAR (Clear); Glucose, Urine (Dipstick) Negative (Negative); Leukocyte Trace (Negative); Nitrite Negative (Negative); Protein, Urine (Dipstick) Negative (Neg-Trace); Specific Gravity, Urine 1.015 (1.002-1.036); pH, Urine 5.5 (5.0-9.0)
[2018-09-11 06:25] LABS: Bacteria/HPF None Seen HPF (None Seen); Hyaline Casts/LPF 4-6 HYALINE CAST LPF (0-3 Hyaline); Pathc Cast-AUWi Flag 0.72 (0-2.49); RBC/HPF 0-3 HPF (0-3); Yeast-AUWi Flag 46.9 (0-25.0)
[2018-09-11 06:31] LABS: Amphetamine Not Detected (NotDetected); Barbiturates Screen Not Detected (NotDetected); Benzodiazepine Screen Not Detected (NotDetected); Cocaine Metabolite Screen Not Detected (NotDetected); Medtox Control Line Valid? VALID (VALID); Medtox Reader # READER 1; Methadone Not Detected (NotDetected); Methamphetamine Not Detected (NotDetected); Opiate Screen Detected (NotDetected); Oxycodone Screen Not Detected (NotDetected); Phencyclidine (PCP) Not Detected (NotDetected); THC/Cannabinoid Screen Not Detected (NotDetected); Tricyclic Screen Not Detected (NotDetected)
[2018-09-11 06:33] LABS: Yeast-All Forms 1+ HPF (None Seen)
[2018-09-11 06:48] LABS: ALT (SGPT) 11 U/L (8-55); AST (SGOT) 41 U/L (5-34); Acetaminophen Less than 6.0 mcg/mL (10.0-30.0); Albumin 4.3 g/dL (3.5-5.0); Alcohol Less than 10 mg/dL (Less than 10); Alkaline Phosphatase 73 U/L (40-150); Anion Gap 25 mmol/L (10-20); BUN (Urea Nitrogen) 47 mg/dL (9.8-20.1); Bilirubin, Total 1.2 mg/dL (0.2-1.2); CK (CPK) 25 U/L (29-168); Calc. Creatinine Clearance 0 mL/min (70-130); Calcium 10.1 mg/dL (7.8-10.44); Carbon Dioxide 30 mmol/L (22-29); Chloride 80 mmol/L (98-107); Estimated GFR-MDRD 39; Globulin 4.3 g/dL (2.4-3.5); Glucose 165 mg/dL (70-105); Potassium 4.3 mmol/L (3.5-5.1); Protein, Total 8.6 g/dL (6.0-8.3); Salicylate Less than 8.0 mg/dL (15.0-30.0); Sodium 131 mmol/L (136-145)
--- NOTE | 2018-09-11 08:39 | RAD ---
PORTABLE UPRIGHT FRONTAL CHEST RADIOGRAPH: DATE: 09/11/2018. COMPARISON: 08/26/2018. HISTORY: Low oxygen saturation, hypoxia. FINDINGS: Heart and mediastinal contours are stable. There is nonspecific diffuse coarse increased linear inte rstitial density throughout both lungs. No pneumothorax. No lobar consolidation. IMPRESSION: Diffuse nonspecific increased interstitial density, unchanged. No focal consolidation. POS: OFF
[2018-09-11] MEDS ORDERED: Acetaminophen 325 MG TAB PO PRN (08:51)
[2018-09-11] MEDS ORDERED: Senokot S 8.6-50 MG TAB PO PRN (08:51)
[2018-09-11] MEDS ORDERED: Ondansetron PF 4 MG/2 ML Vial IVP PRN (08:51)
[2018-09-11] MEDS ORDERED: Ondansetron ODT 4 MG TAB PO PRN (08:51)
[2018-09-11] MEDS ORDERED: Acetaminophen 650 MG Suppository PR PRN (08:51)
[2018-09-11] MEDS ORDERED: Dextrose 5% in Water 1,000 ML IV PRN (08:55)
[2018-09-11] MEDS ORDERED: Dextrose 50% Abboject 50 ML SYRINGE SLOW IVP PRN (08:55)
[2018-09-11] MEDS ORDERED: Melatonin 3 MG TAB PO PRN (08:56)
[2018-09-11] MEDS ORDERED: LIRAGLUTIDE 1.2 MG SC SCH (09:00)
[2018-09-11] MEDS ORDERED: POTASSIUM CHLORIDE 40 MEQ PO SCH (09:00)
[2018-09-11] MEDS ORDERED: Non-Formulary Item 1 EACH (Magnesium Oxide [Magnesium] 400 MG) PO SCH (09:00)
[2018-09-11] MEDS ORDERED: Magnesium Oxide 400 MG TAB PO SCH (09:00)
[2018-09-11] MEDS ORDERED: VARENICLINE TARTRATE PO SCH (09:00)
[2018-09-11] MEDS ORDERED: Gabapentin 300 MG CAP PO SCH (09:00)
[2018-09-11] MEDS ORDERED: NALOXEGOL OXALATE PO SCH (09:00)
--- NOTE | 2018-09-11 09:01 | PDOC.FPRHP ---
- History of Present Illness Chief Complaint: dizzy, low BP History of Present Illness: This is a 53 yo F here w/ CC of dizziness and low BP taken at home. Patient states that around 0300 she became dizzy and recorded a SBP of 60-70. Patient states she has an arm BP cuff that she got from her in-laws. Patient states that at this time she also was nauseous and had an episode of vomiting, non bloody. Patient reports that her dizziness felt as if the room was spinning. She also states she felt generalized weakness. Patient has been hospitalized 2 times in the past month for UTI, multiple falls, and sepsis. Patient denies syncope with this episode. Denies any additional falls. Denies cough, chest or abdominal pain. Endorses palpitations that resolved after 30 sec yesterday. Patient is on 3L O2 at home - pt denies SOB or resp distress. On exam, patient states she feels much better than earlier in the night. Patient states that she has not been taking her glucose regularly, but reports taking her medications as directed. ED Course: 3mL DuoNeb, 125mg IV solu-medrol - Allergies/Adverse Reactions Allergies Allergy/AdvReac Type Severity Reaction Status Date / Time adhesive Allergy Verified 07/25/17 15:00 Penicillins Allergy Verified 07/25/17 15:00 pregabalin [From Lyrica] Allergy Verified 07/25/17 15:00 - Home Medications Medication Instructions Recorded Confirmed Type Aspirin [Ecotrin Low Strength] 81 mg PO DAILY #0 tab 02/12/16 09/11/18 Rx ALButerol Sulfate [Ventolin Neb] 3 ml NEB TID 05/10/16 09/11/18 History Albuterol Sulfate [Proair HFA] 2 puff INH TID PRN 05/10/16 09/11/18 History DULoxetine HCl [Cymbalta] 30 mg PO BID 11/11/16 09/11/18 History Liraglutide [Victoza 2-Lion] 1.2 mg SC DAILY 11/11/16 09/11/18 History Tiotropium [Spiriva Handihaler] 18 mcg INH DAILY 11/11/16 09/11/18 History metFORMIN HCl 1,000 mg PO BID-WM 11/11/16 09/11/18 History Magnesium Oxide [Magnesium] 400 mg PO DAILY 12/18/16 09/11/18 History HYDROcodone/Acetaminophen 1 each PO QID PRN 01/06/17 09/11/18 History [Hydrocodone-Acetamin 10-325 mg] Potassium Chloride [K-Tab ER] 40 meq PO BID 01/06/17 09/11/18 History tiZANidine HCl [Tizanidine HCl] 2 tab PO HS 01/06/17 09/11/18 History Gabapentin 2 tab PO TID 07/25/17 09/11/18 History Naloxegol Oxalate [Movantik] 1 tab PO DAILY 08/11/18 09/11/18 History Varenicline Tartrate [Chantix] 1 tab PO BID 08/11/18 09/11/18 History Bumetanide [Bumex] 2 mg PO DAILY #30 tab 08/29/18 09/11/18 Rx predniSONE [Prednisone] 5 mg PO DAILY 09/11/18 09/11/18 History - History PMHx: recent admission for septic shock 2/2 UTI, Chronic hypoxic respiratory failure, hypokalemia, ILD, sarcoidosis, HFpEF w/ diastolic dysfxn, PVD, DM2, HTN , LD, GERD, MDD, tobacco abuse, noncompliance, cor pulmonale, urinary retention PSHx: tonsillectomy, appendectomy, cholecystectomy, ortho surgeries FHx: noncontributory Social: quit smoking for about 2 weeks but has relapsed, on chantix (used to smoke 1.5 ppd); denies alcohol or drug use - Review of Systems General: denies: fever/chills, weight/appetite/sleep changes, night sweats, fatigue ENT: denies: nasal congestion, rhinorrhea Respiratory: denies: cough, congestion, shortness of breath Cardiovascular: reports: palpitation. denies: chest pain, edema Gastrointestinal: reports: nausea, vomiting (1 episode), constipation (chronic issue). denies: diarrhea Genitourinary: denies: dysuria Skin: denies: rashes Neurological: reports: weakness. denies: syncope - Vital signs BP: 115/70 HR: 97 RR: 17 Tmax: 98.3 Pox: 94% on 3LO2 Wt: 74kg - Physical Exam Constitutional: NAD, awake, alert and oriented, well developed HEENT: normocephalic and atraumatic, PERRLA, EOMI, grossly normal vision, grossly normal hearing Neck: supple, FROM Chest: no-tender to palpation, no lesions Heart: RRR, normal S1/S2, no murmurs/rubs/gallops, pulses present Lungs: CTAB, no respiratory distress, good air movement, no wheezing, no retractions Abdomen: soft, non-tender, bowel sounds present, no masses/distention Musculoskeletal: ROM grossly normal Neurological: no focal deficit Skin: no rash/lesions, good turgor, capillary refill <2 seconds Psychiatric: normal mood and affect FMR H&P: Results - Labs Result Diagrams: 09/11/18 06:15 09/11/18 06:15 Lab results: WBC 9.8 thou/uL (4.8-10.8) 09/11/18 06:15 Hgb 14.4 g/dL (12.0-16.0) 09/11/18 06:15 Hct 45.7 % (36.0-47.0) 09/11/18 06:15 MCV 78.1 fL (78.0-98.0) 09/11/18 06:15 Plt Count 211 thou/uL (130-400) 09/11/18 06:15 Neutrophils % 44.4 % (42.0-75.0) 09/11/18 06:15 Sodium 131 mmol/L (136-145) L 09/11/18 06:15 Potassium 4.3 mmol/L (3.5-5.1) 09/11/18 06:15 Chloride 80 mmol/L (98-107) L 09/11/18 06:15 Carbon Dioxide 30 mmol/L (22-29) H 09/11/18 06:15 BUN 47 mg/dL (9.8-20.1) H 09/11/18 06:15 Creatinine 1.42 mg/dL (0.6-1.1) H 09/11/18 06:15 Glucose 165 mg/dL (70-105) H 09/11/18 06:15 Lactic Acid 3.7 mmol/L (0.5-2.2) H 09/11/18 06:15 Calcium 10.1 mg/dL (7.8-10.44) 09/11/18 06:15 Total Bilirubin 1.2 mg/dL (0.2-1.2) 09/11/18 06:15 AST 41 U/L (5-34) H 09/11/18 06:15 ALT 11 U/L (8-55) 09/11/18 06:15 Alkaline Phosphatase 73 U/L (40-150) 09/11/18 06:15 Creatine Kinase 25 U/L (29-168) L 09/11/18 06:15 B-Natriuretic Peptide 235.5 pg/mL (0-100) H 09/11/18 06:15 Serum Total Protein 8.6 g/dL (6.0-8.3) H 09/11/18 06:15 Albumin 4.3 g/dL (3.5-5.0) 09/11/18 06:15 Urine Ketones Negative mg/dL (Negative) 09/11/18 05:52 Urine Blood Negative (Negative) 09/11/18 05:52 Urine Nitrite Negative (Negative) 09/11/18 05:52 Ur Leukocyte Esterase Trace (Negative) H 09/11/18 05:52 Urine RBC 0-3 HPF (0-3) 09/11/18 05:52 Urine WBC 4-6 HPF (0-3) H 09/11/18 05:52 Ur Squamous Epith Cells 4-6 HPF (0-3) H 09/11/18 05:52 Urine Bacteria None Seen HPF (None Seen) 09/11/18 05:52 FMR H&P: A/P - Problem List (1) Diabetes Current Visit: No Status: Acute Code(s): E11.9 - TYPE 2 DIABETES MELLITUS WITHOUT COMPLICATIONS (2) Hypokalemia Current Visit: No Status: Acute Code(s): E87.6 - HYPOKALEMIA (3) Nausea Current Visit: No Status: Acute Code(s): R11.0 - NAUSEA (4) CHF (congestive heart failure) Current Visit: No Status: Chronic Code(s): I50.9 - HEART FAILURE, UNSPECIFIED (5) COPD (chronic obstructive pulmonary disease) Current Visit: No Status: Chronic Qualifiers: (6) Chronic lung disease Current Visit: No Status: Chronic Code(s): J98.4 - OTHER DISORDERS OF LUNG (7) Diabetes mellitus, type II Current Visit: No Status: Chronic (8) Fibromyalgia Current Visit: No Status: Chronic (9) GERD (gastroesophageal reflux disease) Current Visit: No Status: Chronic Code(s): K21.9 - GASTRO-ESOPHAGEAL REFLUX DISEASE WITHOUT ESOPHAGITIS (10) Hx of past noncompliance Current Visit: No Status: Chronic Code(s): Z91.19 - PATIENT'S NONCOMPLIANCE W OTH MEDICAL TREATMENT AND REGIMEN (11) Hyperlipidemia Current Visit: No Status: Chronic Code(s): E78.5 - HYPERLIPIDEMIA, UNSPECIFIED (12) Hypertension Current Visit: No Status: Chronic Code(s): I10 - ESSENTIAL (PRIMARY) HYPERTENSION (13) Major depressive disorder Current Visit: No Status: Chronic Code(s): F32.9 - MAJOR DEPRESSIVE DISORDER , SINGLE EPISODE, UNSPECIFIED (14) Narcotic dependency, continuous Current Visit: No Status: Chronic Code(s): F11.20 - OPIOID DEPENDENCE, UNCOMPLICATED (15) PVD (peripheral vascular disease) with claudication Current Visit: No Status: Chronic Code(s): I73.9 - PERIPHERAL VASCULAR DISEASE, UNSPECIFIED (16) Prolonged Q-T interval on ECG Current Visit: No Status: Chronic Code(s): R94.31 - ABNORMAL ELECTROCARDIOGRAM [ECG] [EKG] (17) Pulmonary hypertension Current Visit: No Status: Chronic Code(s): I27.2 - OTHER SECONDARY PULMONARY HYPERTENSION * DO NOT USE * (18) Tobacco abuse Current Visit: No Status: Chronic Code(s): Z72.0 - TOBACCO USE - Plan Hypotension 2/2 Mild Dehydration - Reports she restricts fluids to about 1800 ml/day - Prescribed bumetanide 2 mg BID, may have been cause - decreased dose - reported SBP 60-70 on home BP cuff - Will monitor on tele to monitor Elevated Lactic Acid - LA 3.7 - Will continue to monitor - afebrile, WBC 9.8; procal pending - Will give 500ml bolus QTc prolongation - present on previous admission - QTc of 480, no EKG changes from prior EKG - May be 2/2 to hypokalemia vs medication vs other - Will monitor on tele overnight HFpEF, severe rt sided heart failure w/ diastolic dysfunction - Reports she restricts fluids to about 1800 ml/day - Decreased bumetanide dose during previous admission - Sees Dr. Izaguirre - Echocardiogram on 08/10/18: showed a technically difficult exam, EF was 55% to 60%, E/A flow reversal noted, mildly enlarged right ventricle, LA moderately dilated AV sclerotic, moderate AR, severe TR Chronic hypoxic respiratory failure 2/2 Interstitial lung disease - 3L NC @ home - Satting 91-93% here on 3L NC, reports about the same as at home - PRN O2 to keep sats >88% - Sees Dr. Rodriguez - DuoNeb PRN - CXR unchanged from prior admission Nausea - Sees Dr. Collins, has appt next week DM2 - A1C 5.7 on 06/26/18 - Continue home metformin and liraglutide - Hyperglycemia protocol - SSI Tobacco abuse - recently started chantix - successfully quit for a little over 2 weeks, but has restarted - Counselled and encouraged smoking cessation History of noncompliance - per Dr. Rodriguez's note Chronic conditions include: - urinary retention, constipation, MDD, fibromyalgia, GERD, HLD, HTN, PVD, cor pulmonale - aware and will restart home meds Code status: full code Dispo: <2 midnight, admit to tele obs Ppx: Lovenox Diet: CC, HH FMR H&P: Upper Level - Pertinent history 53 yo PMH HTN, HFpEF, intersitial lung disease, and tobacco abuse. Presents with CC of lightheadness, dizziness, and generalized malaise. Took BP at home when symptoms started and was 60-70/40-50. Had returned to normal upon arrival to ER. Denies CP, SOB, or palpitations. Still feels weak from previous hospitalizations. ER: Labs, EKG, CXR, NS 500 mL. - Pertinent findings Vitals: BP 115/69, SpO2 95% on 1L. WNL otherwise GEN: NAD CV: RRR, no murmur PULM: poor air movement throughout, no wheezes. Ext: Trace edema Lab BNP 254 (below baseline) EKG: unchanged, CXR: Unremarkable - Plan Date/Time: 09/11/18 0900 I, Juan Sousa MD, have evaluated this patient and agree with findings/plan as outlined by internal communications writer resident. Pertinent changes/additions are listed here. 1. Hypotension likely 2/2 dehydration: Patient not currently on medications. Will monitor on tele overnight to verify no dysrhythmia. Continue home meds. Will give additional 500 mL of NS. 2. Deconditioning: CM to arranged HH with PT. PT eval/treat 3. Lactic acidosis: trend lactate. give additional NS bolus. - Continue chronic meds. - Diet: HH - PPx: lovenox - CODE: FULL Dispo- obs, tele, <[address] Lynch. Addendum - Attending - Attending Attestation Date/Time: 09/11/18 1328 I personally evaluated the patient and discussed the management with Dr. Rivera I agree with the History, Examination, Assessment and Plan documented above with any addition or exceptions noted below. 53 yo with multiple recent admissions patient with concern hypotension 60/70 pulse rate 60-70s at home and brought to ER via EMS . Blood pressure and pulse stable at rest seen ar ER with supplemental Oxygen and O2 sats 99 % Note patient appears much older than stated age marked COPD, CHF and PVD with claudication symptoms RLE unfortunately patient continues to abuse tobacco. REC place observation on telemetry bed encourage activity to reproduce home environment and monitor fluid state balance, patient with previously aggressive diuresis due to non compliance with fluid restriction and now with improved fluid and salt restriction. Will need to continue short term f/u at [facility] clinic check magnesium and KCL note prolonged QT need continued monitoring and observation.
[2018-09-11] MEDS ORDERED: Enoxaparin Sodium 40 MG/0.4 ML SYRINGE ONE (10:04)
[2018-09-11] MEDS ORDERED: Potassium Chloride 20 MEQ TAB ONE (10:04)
[2018-09-11 10:29] LABS: Lactic Acid 2.6 mmol/L (0.5-2.2)
[2018-09-11] MEDS: Aspirin 81 mg Enteric Coated Tablet PO SCH (10:58)
[2018-09-11] MEDS: Gabapentin 300 MG CAP PO SCH ×3 (11:05→20:53)
[2018-09-11] MEDS: Bumetanide 1 MG TAB PO SCH (11:05)
[2018-09-11] MEDS: Enoxaparin Sodium 40 MG/0.4 ML SYRINGE SC SCH (11:05)
[2018-09-11] MEDS: DULoxetine 30 MG CAP PO SCH ×2 (11:05→20:53)
[2018-09-11] MEDS: Nicotine 21 MG PATCH TD SCH (11:06)
[2018-09-11] MEDS: Varenicline Tartrate 0.5 MG TAB PO SCH ×2 (11:06→20:54)
[2018-09-11] MEDS ORDERED: HumaLOG 300 UNITS/3 ML VIAL ONE (11:57)
[2018-09-11] MEDS ORDERED: Insulin Regular 300 UNITS/3 ML VIAL ONE (12:04)
[2018-09-11] MEDS ORDERED: Sodium Chloride 0.9% 500 ML IV SCH ×2 (12:30→13:15)
[2018-09-11] MEDS ORDERED: Ibuprofen 800 MG TAB PO SCH (13:30)
[2018-09-11] MEDS ORDERED: Non-Formulary Item 1 EACH (Metformin Hcl [Metformin Hcl] 1,000 MG) PO SCH (17:00)
[2018-09-11] MEDS: metFORMIN 500 MG TAB PO SCH (18:46)
[2018-09-11] MEDS: Potassium Chloride 20 MEQ TAB PO SCH (18:46)
[2018-09-11] MEDS: Simvastatin 5 MG TAB PO SCH (20:53)
[2018-09-11] MEDS: HYDROcodone/Acetaminophen 10/325 mg Tablet PO PRN (20:53)
[2018-09-11] MEDS: tiZANidine HCl 4 MG TAB PO SCH (20:54)
[2018-09-11] MEDS ORDERED: Pravastatin Sodium 20 MG TAB PO SCH (21:00)
[2018-09-11] MEDS ORDERED: TIZANIDINE HCL PO SCH (21:00)
[2018-09-11 21:49] VITALS: BMI 29.7
[2018-09-12] MEDS: HYDROcodone/Acetaminophen 10/325 mg Tablet PO PRN ×3 (05:29→17:30)
[2018-09-12 05:47] LABS: #Basophils 0.1 thou/uL (0.0-0.2); #Eosinphils 0.2 thou/uL (0.0-0.7); #Lymphocytes 4.6 thou/uL (1.20-3.40); #Monocytes 0.7 thou/uL (0.11-0.59); #Neutrophils 5.5 thou/uL (1.40-6.50); %Basophils 0.9 % (0.0-1.0); %Eosinophils 1.5 % (0.0-10.0); %Lymphocytes 41.9 % (21.0-51.0); %Monocytes 5.9 % (0.0-10.0); %Neutrophils 49.8 % (42.0-75.0); Hemoglobin 12.6 g/dL (12.0-16.0); Mean Corpuscular HGB CONC 31.2 g/dL (32.0-36.0); Mean Corpuscular Hemoglobin 24.4 pg (27.0-31.0); Mean Corpuscular Volume 78.3 fL (78.0-98.0); Mean Platelet Volume 11.7 fL (7.4-10.4); Platelet Count 200 thou/uL (130-400); RBC Distribution Width 20.8 % (11.5-14.5); Red Blood Cell (RBC) Count 5.15 mill/uL (4.20-5.40)
[2018-09-12 06:05] LABS: Anion Gap 19 mmol/L (10-20); BUN (Urea Nitrogen) 58 mg/dL (9.8-20.1); Calc. Creatinine Clearance 74 mL/min (70-130); Calcium 9.7 mg/dL (7.8-10.44); Carbon Dioxide 34 mmol/L (22-29); Chloride 83 mmol/L (98-107); Estimated GFR-MDRD 53; Glucose 196 mg/dL (70-105); Sodium 133 mmol/L (136-145)
[2018-09-12 06:09] LABS: Potassium 2.8 mmol/L (3.5-5.1)
[2018-09-12] MEDS ORDERED: Potassium Chloride 20 MEQ TAB PO SCH ×3 (06:15→17:45)
--- NOTE | 2018-09-12 06:27 | PDOC.FM ---
- Subjective Subjective: Overnight the patient had 11 beats of SVT. Patient asymptomatic. Patient has no complaints or concerns this morning. She states she is feeling much better than yesterday. Denies SOB, cough, chest or abdominal pain, palpitations, NVD. - Objective Vital Signs & Weight: Vital Signs (12 hours) Temp Pulse Resp BP Pulse Ox 09/12/18 04:33 97.6 F 96 18 104/52 L 91 L 09/11/18 23:37 97.7 F 87 12 91/56 L 91 L 09/11/18 21:00 97.6 F 87 18 120/55 L 92 L Weight Weight 78.471 kg I&O: 09/10/18 09/11/18 09/12/18 06:59 06:59 06:59 Intake Total 1810 Output Total 1000 Balance 810 Result Diagrams: 09/12/18 04:59 09/12/18 04:59 Phys Exam - Physical Examination Constitutional: NAD HEENT: PERRLA, moist MMs, sclera anicteric Neck: supple Respiratory: clear to auscultation bilateral Cardiovascular: RRR Gastrointestinal: soft, non-tender, no distention, positive bowel sounds Musculoskeletal: no edema Neurological: non-focal, moves all 4 limbs Psychiatric: normal affect, A&O x 3 Skin: no rash Dx/Plan (1) Diabetes Code(s): E11.9 - TYPE 2 DIABETES MELLITUS WITHOUT COMPLICATIONS Status: Acute (2) Hypokalemia Code(s): E87.6 - HYPOKALEMIA Status: Acute (3) Nausea Code(s): R11.0 - NAUSEA Status: Acute (4) CHF (congestive heart failure) Code(s): I50.9 - HEART FAILURE, UNSPECIFIED Status: Chronic (5) COPD (chronic obstructive pulmonary disease) Status: Chronic Qualifiers: (6) Chronic lung disease Code(s): J98.4 - OTHER DISORDERS OF LUNG Status: Chronic (7) Diabetes mellitus, type II Status: Chronic (8) Fibromyalgia Status: Chronic (9) GERD (gastroesophageal reflux disease) Code(s): K21.9 - GASTRO-ESOPHAGEAL REFLUX DISEASE WITHOUT ESOPHAGITIS Status: Chronic (10) Hx of past noncompliance Code(s): Z91.19 - PATIENT'S NONCOMPLIANCE W OTH MEDICAL TREATMENT AND REGIMEN Status: Chronic (11) Hyperlipidemia Code(s): E78.5 - HYPERLIPIDEMIA, UNSPECIFIED Status: Chronic (12) Hypertension Code(s): I10 - ESSENTIAL (PRIMARY) HYPERTENSION Status: Chronic (13) Major depressive disorder Code(s): F32.9 - MAJOR DEPRESSIVE DISORDER, SINGLE EPISODE, UNSPECIFIED Status : Chronic (14) Narcotic dependency, continuous Code(s): F11.20 - OPIOID DEPENDENCE, UNCOMPLICATED Status: Chronic (15) PVD (peripheral vascular disease) with claudication Code(s): I73.9 - PERIPHERAL VASCULAR DISEASE, UNSPECIFIED Status: Chronic (16) Prolonged Q-T interval on ECG Code(s): R94.31 - ABNORMAL ELECTROCARDIOGRAM [ECG] [EKG] Status: Chronic (17) Pulmonary hypertension Code(s): I27.2 - OTHER SECONDARY PULMONARY HYPERTENSION * DO NOT USE * Status : Chronic (18) Tobacco abuse Code(s): Z72.0 - TOBACCO USE Status: Chronic - Plan Plan: Hypotension 2/2 Mild Dehydration - Reports she restricts fluids to about 1800 ml/day - Prescribed bumetanide 2 mg BID, may have been cause - decreased dose at last admission - reported SBP 60-70 on home BP cuff; BP has been in acceptable range since admission; will continue to monitor - given small bolus, due to patient CHF, will monitor symptoms; clinically improved Elevated Lactic Acid - LA 3.7 -> 2.6 - Will continue to monitor - afebrile, WBC 9.8; procal neg QTc prolongation - present on previous admission - QTc of 480, no EKG changes from prior EKG - May be 2/2 to hypokalemia vs medication vs other - Will monitor on tele overnight Hypokalemia - chronic problem, patient restarted on home meds of K and Mg - Will continue to replace as needed - BMP @ 1200 to recheck K HFpEF, severe rt sided heart failure w/ diastolic dysfunction - Reports she restricts fluids to about 1800 ml/day - Decreased bumetanide dose during previous admission - Sees Dr. Izaguirre - Echocardiogram on 08/10/18: showed a technically difficult exam, EF was 55% to 60%, E/A flow reversal noted, mildly enlarged right ventricle, LA moderately dilated AV sclerotic, moderate AR, severe TR Chronic hypoxic respiratory failure 2/2 Interstitial lung disease - 3L NC @ home - Satting 91-93% here on 3L NC, reports about the same as at home - PRN O2 to keep sats >88% - Sees Dr. Rodriguez - DuoNeb PRN - CXR unchanged from prior admission Nausea - Sees Dr. Collins, has appt next week DM2 - A1C 5.7 on 06/26/18 - Continue home metformin and liraglutide - Hyperglycemia protocol - SSI Tobacco abuse - recently started chantix - successfully quit for a little over 2 weeks, but has restarted - Counselled and encouraged smoking cessation History of noncompliance - per Dr. Rodriguez's note Chronic conditions include: - urinary retention, constipation, MDD, fibromyalgia, GERD, HLD, HTN, PVD, cor pulmonale - aware and will restart home meds Code status: full code Dispo: pending 1200 BMP, possible discharge later today Ppx: Lovenox Diet: CC, NICOLE Addendum - Attending - Attending Attestation Date/Time: 09/12/18 4522 I personally evaluated the patient and discussed the management with Dr. Rivera I agree with the History, Examination, Assessment and Plan documented above with any addition or exceptions noted below. Blood pressure stable patient with 2 runs of non sustained SVT rate 180 this am with minimal exertion, asymptomatic regard CP,SOB does endorse palpitations replace potassium will consult Cardiology regard SVT and any further intervention.Patient with significant caffeine containing soft drink habit.
[2018-09-12] MEDS ORDERED: Potassium Chloride 20 MEQ/100 ML PREMIX BAG IVPB SCH (06:30)
[2018-09-12] MEDS ORDERED: Sodium Chloride 0.9% 500 ML IV SCH ×2 (07:15→08:30)
[2018-09-12] MEDS: HumaLOG 300 UNITS/3 ML VIAL SC PRN (07:17)
[2018-09-12 07:41] LABS: Lactic Acid 2.9 mmol/L (0.5-2.2)
[2018-09-12] MEDS ORDERED: Magnesium Oxide 400 MG TAB PO SCH (08:17)
[2018-09-12] MEDS: DULoxetine 30 MG CAP PO SCH ×2 (08:57→19:54)
[2018-09-12] MEDS: Bumetanide 1 MG TAB PO SCH (08:57)
[2018-09-12] MEDS: metFORMIN 500 MG TAB PO SCH ×2 (08:58→17:28)
[2018-09-12] MEDS: Gabapentin 300 MG CAP PO SCH ×3 (08:59→19:54)
[2018-09-12] MEDS: Varenicline Tartrate 0.5 MG TAB PO SCH ×2 (08:59→19:54)
[2018-09-12] MEDS: Potassium Chloride 20 MEQ TAB PO SCH ×2 (08:59→17:28)
[2018-09-12] MEDS: Aspirin 81 mg Enteric Coated Tablet PO SCH (08:59)
[2018-09-12] MEDS: Magnesium Oxide 400 MG TAB PO SCH (08:59)
[2018-09-12] MEDS: Enoxaparin Sodium 40 MG/0.4 ML SYRINGE SC SCH (09:00)
[2018-09-12] MEDS ORDERED: VICTOZA SC SCH (09:00)
[2018-09-12] MEDS ORDERED: PAK SC SCH (09:00)
[2018-09-12] MEDS: Nicotine 21 MG PATCH TD SCH (09:02)
[2018-09-12 13:02] LABS: Anion Gap 19 mmol/L (10-20); BUN (Urea Nitrogen) 54 mg/dL (9.8-20.1); Calc. Creatinine Clearance 88 mL/min (70-130); Carbon Dioxide 36 mmol/L (22-29); Chloride 84 mmol/L (98-107); Estimated GFR-MDRD 64; Glucose 128 mg/dL (70-105); Magnesium 1.9 mg/dL (1.6-2.6); Sodium 136 mmol/L (136-145)
[2018-09-12 13:09] LABS: Potassium 2.8 mmol/L (3.5-5.1)
[2018-09-12] MEDS ORDERED: Potassium Chloride 20 MEQ in Premix Bag 1 BAG IVPB SCH ×2 (13:15→13:45)
[2018-09-12 16:20] LABS: BUN (Urea Nitrogen) 54 mg/dL (9.8-20.1); Calc. Creatinine Clearance 85 mL/min (70-130); Calcium 9.7 mg/dL (7.8-10.44); Estimated GFR-MDRD 62; Glucose 140 mg/dL (70-105)
[2018-09-12 16:27] LABS: Carbon Dioxide Greater than 37 mmol/L (22-29); Chloride 86 mmol/L (98-107); Potassium 2.9 mmol/L (3.5-5.1); Sodium 136 mmol/L (136-145)
[2018-09-12] MEDS: Simvastatin 5 MG TAB PO SCH (19:53)
[2018-09-12] MEDS: tiZANidine HCl 4 MG TAB PO SCH (19:53)
[2018-09-12 22:52] LABS: Anion Gap 17 mmol/L (10-20); BUN (Urea Nitrogen) 55 mg/dL (9.8-20.1); Calc. Creatinine Clearance 70 mL/min (70-130); Calcium 9.4 mg/dL (7.8-10.44); Carbon Dioxide 32 mmol/L (22-29); Chloride 89 mmol/L (98-107); Estimated GFR-MDRD 50; Glucose 181 mg/dL (70-105); Potassium 4.5 mmol/L (3.5-5.1); Sodium 133 mmol/L (136-145)
--- NOTE | 2018-09-12 22:57 | PDOC.EVN ---
Event Note - Event Note Event Note: Evaluated at bedside for low BP. Per nurse, patient has been particularly groggy since receiving nighttime meds. No new meds tonight compared to last night. in room notes that this is how she acted at home previously. BP in room 91/53, sat 96% on 3L, afebrile. No changes on telemetry. General: sleeping, awakes when aroused Heart: RRR,no murmur Lungs: decreased lung sounds, no crackles auscultated Will give 250mL bolus and reassess. BMP and ABG ordered earlier today still pending. Ordered UDS. Nighttime muscle relaxant and norco may be contributing to drowsiness. Will continue to monitor VS. Addendum - Attending - Attending Attestation Date/Time: 09/13/18727 I personally evaluated the patient and discussed the management with Dr. Bello and Arlette. I agree with the History, Examination, Assessment and Plan documented above with any addition or exceptions noted below. [place] 10 and Zanaflex 8 mg likely excessive. No evidence for sepsis. Monitor closely.
[2018-09-12] MEDS ORDERED: Lactated Ringer's 250 ML IV SCH (23:00)
[2018-09-13] MEDS ORDERED: Lactated Ringer's 250 ML IV SCH (00:15)
--- NOTE | 2018-09-13 03:24 | CON ---
DATE OF CONSULTATION: 09/12/2018 REASON FOR CONSULTATION: I am seeing Ms. 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 Her problems are, 1. Syncopal spells. 2. Wide-complex tachycardia, likely SVT, but cannot rule out ventricular tachycardia. Longest duration around 22 seconds. 3. Right bundle branch block. 4. History of heart failure with preserved ejection fraction in the LV, but dilated RV and moderate pulmonary hypertension by echo on 08/10/2016; severe TR is noted. 5. Questionable history of pulmonary sarcoidosis. 6. History of COPD and smoking, recently quit. 7. Risk factors including hypertension, type 2 diabetes. ALLERGIES: ADHESIVES, PENICILLIN, PREGABALIN. MEDICATIONS: At home included, 1. Aspirin. 2. Albuterol. 3. Duloxetine. 4. Liraglutide. 5. Tiotropium. 6. Metformin. 7. Magnesium oxide. 8. Hydrocodone. 9. Potassium chloride. 10. Tizanidine. 11. Gabapentin. 12. Naloxegol. 13. . 14. Bumetanide. 15. Prednisone. SUBJECTIVE: Ms. Valdovinos is here due to recurrent dizzy/syncopal spells. She was admitted this time after an episode of dizziness and very low blood pressure at home. The systolic blood pressures were recorded in the 60s and 70s according to her. Also had an episode of nausea and vomiting, which was nonbloody. She also felt generalized weakness. This episode was somewhat similar to the prior hospitalization a couple of weeks ago when she was noted to be septic with UTI. Also, multiple falls were noted at that time. She did have some syncopal spells around that time though. Also, does experience episodes of sharp palpitations, but without stroke-like symptoms or neurological deficits. No seizure activity is noted. She denies chest pains. No fever, chills, or cough. Currently, no burning urination. Rest of 12-point system otherwise unremarkable. PAST MEDICAL HISTORY: As above. The patient has a history of GERD, diabetes, hypertension, hyperlipidemia, also major depressive disorder, some degree of narcotic dependency, peripheral vascular disease with claudication, some of the increased QT intervals are seen in the past, pulmonary hypertension. SOCIAL HISTORY: The patient has a prolonged history of smoking, quit recently, currently abstinent. Denies EtOH or drug abuse. SURGICAL HISTORY: Significant for tonsillectomy, appendectomy, cholecystectomy, and orthopedic surgeries. FAMILY HISTORY: Not contributory. OBJECTIVE DATA: VITAL SIGNS: Blood pressure currently 111/57, heart rate 91, respiratory rate was 19, temperature 97.5 degrees Fahrenheit. On admission, blood pressure was 116/59, heart rate 99, respiratory rate 16. PHYSICAL EXAMINATION: GENERAL: Alert and oriented woman, in no apparent distress. NECK: Supple. Jugular vein slightly distended. CHEST: Coarse. No crackles. HEART: Sounds are regular to rate and rhythm, S1 is normal, S2 is exaggerated. A 1/6 holosystolic murmur is heard at the lower sternal borders. PMI is nonpalpable. ABDOMEN: Benign. Bowel sounds positive. EXTREMITIES: Lower extremity with somewhat cyanotic appearing. Pulses are mildly diminished. NEUROLOGICAL: Nonfocal. MUSCULOSKELETAL: No joint swelling or deformity. SKIN: Without rash. DATABASE: The EKG reviewed revealed baseline sinus rhythm, rate of 95 beats per minute, QRS duration 130 milliseconds, QTc 510 milliseconds noted. The subsequent telemetry strips do reveal episodes of wide-complex tachycardia, previously somewhat difficult to visualize the morphology of the tachycardia, similar to the baseline right bundle block pattern. LABORATORY DATA: White count is 11, hemoglobin 12.6, platelet count is 200. Sodium 136, potassium is 2.8, BUN is 54, creatinine is 0.91. UA shows 4 to 6 white cells and squamous epithelial cells, likely unclear urine. Tox screen shows opiates, Tylenol, and salicylates. No EtOH or other toxins present. Microbiology shows no growth at 24 hours from the urine. Influenza A/B is negative. ASSESSMENT AND PLAN: Ms. Valdovinos is a pleasant 53-year-old woman with a history of heart failure with preserved LVEF but symptoms of right heart failure, requiring diuresis; issues with episodic dehydration and syncopal spell by her prior history. This has been exaggerated further by an episode of UTI on last admission. She had history of syncope at that time, attributed to her lower blood pressures, but during this admission, she was noted to have episodes of nonsustained wide-complex arrhythmia. The QRS morphology does not seemed to have changed compared to baseline, but P-waves are difficult to elicit, cannot 100% rule out ventricular tachycardia or supraventricular tachycardia based on these. On the other hand, she has exaggerated symptoms possibly by episode of dehydration, but ventricular and supraventricular arrhythmias definitely could contribute to the prior syncopal spells. The history of sarcoidosis, also concerning for possible early scarring of the myocardium. Electrolyte abnormality is also likely contributor. Low potassium needs to be corrected. We discussed the potential role of an electrophysiology in her condition. After correction of the potassium, it is reasonable to assess inducibility of both atrial and ventricular arrhythmias. Ablation of supraventricular arrhythmia would be reasonable if she has inducible ventricular tachycardia. Consideration for ICD therapy could be even made especially if no reversible factors are found. I have discussed these issues and the treatment options with her. She understands and willing to proceed. We will schedule her for near date. Thank you again for allowing to participate in care of this patient. Job ID: [id number]
[2018-09-13 05:53] LABS: Hemoglobin 12.6 g/dL (12.0-16.0); Mean Corpuscular HGB CONC 30.7 g/dL (32.0-36.0); Mean Corpuscular Hemoglobin 24.3 pg (27.0-31.0); Mean Corpuscular Volume 79.2 fL (78.0-98.0); Mean Platelet Volume 10.9 fL (7.4-10.4); Platelet Count 193 thou/uL (130-400); RBC Distribution Width 20.5 % (11.5-14.5); Red Blood Cell (RBC) Count 5.16 mill/uL (4.20-5.40); White Blood Cell (WBC) Count 9.9 thou/uL (4.8-10.8)
[2018-09-13 05:55] LABS: #Basophils 0.1 thou/uL (0.0-0.2); #Eosinphils 0.2 thou/uL (0.0-0.7); #Lymphocytes 4.9 thou/uL (1.20-3.40); #Monocytes 0.6 thou/uL (0.11-0.59); %Basophils 1.4 % (0.0-1.0); %Eosinophils 2.3 % (0.0-10.0); %Lymphocytes 49.7 % (21.0-51.0); %Monocytes 6.3 % (0.0-10.0); %Neutrophils 40.4 % (42.0-75.0)
[2018-09-13 06:01] LABS: Lactic Acid 1.9 mmol/L (0.5-2.2)
--- NOTE | 2018-09-13 06:07 | PDOC.FM ---
Addendum entered and electronically signed by Lakesha Rivera MD 09/13/18 09:13 : Dispo: possible d/c later today after EP procedure Original Note: - Subjective Subjective: Overnight patient had low BP and increased drowsiness. This morning on exam the patient states she feels well. During the episode last night she states she felt very groggy and lightheaded. She states this was the same way she felt when she presented to the ED. Denies palpitations during the episode. Patient states this morning she is not lightheaded, short of breath, denies palpitations or chest pain. Patient states that she discussed the procedure with Dr. Gan and is ready for her procedure. She has no other issues or complaints this AM. - Objective MAR Reviewed: Yes Vital Signs & Weight: Vital Signs (12 hours) Temp Pulse Resp BP BP Pulse Ox 09/13/18 03:20 97.4 F L 92 22 H 106/59 L 93 L 09/13/18 01:30 97.1 F L 80 20 93/61 94 L 09/12/18 23:21 96.6 F L 80 28 H 82/52 L 94 L 09/12/18 19:22 97.5 F L 102 H 20 105/58 L 89 L Weight Weight 79.197 kg I&O: 09/11/18 09/12/18 09/13/18 06:59 06:59 06:59 Intake Total 1810 1205 Output Total 1000 0 Balance 810 1205 Result Diagrams: 09/13/18 05:02 09/13/18 05:02 Phys Exam - Physical Examination Constitutional: NAD HEENT: PERRLA, moist MMs, sclera anicteric Neck: full ROM crackles diffusely Cardiovascular: RRR Gastrointestinal: soft, non-tender, no distention, positive bowel sounds Musculoskeletal: no edema, pulses present Neurological: non-focal, moves all 4 limbs Psychiatric: normal affect, A&O x 3 Dx/Plan (1) Diabetes Code(s): E11.9 - TYPE 2 DIABETES MELLITUS WITHOUT COMPLICATIONS Status: Acute (2) Hypokalemia Code(s): E87.6 - HYPOKALEMIA Status: Acute (3) Nausea Code(s): R11.0 - NAUSEA Status: Acute (4) CHF (congestive heart failure) Code(s): I50.9 - HEART FAILURE, UNSPECIFIED Status: Chronic (5) COPD (chronic obstructive pulmonary disease) Status: Chronic Qualifiers: (6) Chronic lung disease Code(s): J98.4 - OTHER DISORDERS OF LUNG Status: Chronic (7) Diabetes mellitus, type II Status: Chronic (8) Fibromyalgia Status: Chronic (9) GERD (gastroesophageal reflux disease) Code(s): K21.9 - GASTRO-ESOPHAGEAL REFLUX DISEASE WITHOUT ESOPHAGITIS Status: Chronic (10) Hx of past noncompliance Code(s): Z91.19 - PATIENT'S NONCOMPLIANCE W OTH MEDICAL TREATMENT AND REGIMEN Status: Chronic (11) Hyperlipidemia Code(s): E78.5 - HYPERLIPIDEMIA, UNSPECIFIED Status: Chronic (12) Hypertension Code(s): I10 - ESSENTIAL (PRIMARY) HYPERTENSION Status: Chronic (13) Major depressive disorder Code(s): F32.9 - MAJOR DEPRESSIVE DISORDER, SINGLE EPISODE, UNSPECIFIED Status : Chronic (14) Narcotic dependency, continuous Code(s): F11.20 - OPIOID DEPENDENCE, UNCOMPLICATED Status: Chronic (15) PVD (peripheral vascular disease) with claudication Code(s): I73.9 - PERIPHERAL VASCULAR DISEASE, UNSPECIFIED Status: Chronic (16) Prolonged Q-T interval on ECG Code(s): R94.31 - ABNORMAL ELECTROCARDIOGRAM [ECG] [EKG] Status: Chronic (17) Pulmonary hypertension Code(s): I27.2 - OTHER SECONDARY PULMONARY HYPERTENSION * DO NOT USE * Status : Chronic (18) Tobacco abuse Code(s): Z72.0 - TOBACCO USE Status: Chronic - Plan Plan: Hypotension 2/2 Mild Dehydration - Reports she restricts fluids to about 1800 ml/day - Prescribed bumetanide 2 mg BID, may have been cause - decreased dose at last admission - reported SBP 60-70 on home BP cuff; BP has been in acceptable range since admission; will continue to monitor - patient responded to small bolus, will continue to monitor Near syncopal Spells 2/2 hypotension vs tachycardia - tachycardia likely SVT, but unable to rule out ventricular tachycardia. - EP consulted - discussed electrophysiology with the patient for ablation of supravevntricular arrhythmia and possible ICD therapy. Patient has agreed to proceed with this therapy. Procedure scheduled for today. Will f/u with patient after. Appreciate EP recs. - pt sees Dr. Izaguirre outpatient. Will have her follow up outpatient Elevated Lactic Acid - LA 3.7 -> 2.6 -> 1.9 - Will continue to monitor - afebrile, WBC 9.8; procal neg QTc prolongation - present on previous admission - QTc of 480, no EKG changes from prior EKG - May be 2/2 to hypokalemia vs medication vs other - Will monitor on tele overnight Hypokalemia - chronic problem, patient restarted on home meds of K and Mg - Will continue to replace as needed - Daily BMPs HFpEF, severe rt sided heart failure w/ diastolic dysfunction - Reports she restricts fluids to about 1800 ml/day - Decreased bumetanide dose during previous admission - Sees Dr. Izaguirre - Echocardiogram on 08/10/18: showed a technically difficult exam, EF was 55% to 60%, E/A flow reversal noted, mildly enlarged right ventricle, LA moderately dilated AV sclerotic, moderate AR, severe TR Chronic hypoxic respiratory failure 2/2 Interstitial lung disease - 3L NC @ home; PRN O2 to keep sats 88-92% - Satting 91-93% here on 3L NC, reports about the same as at home - Sees Dr. Rodriguez - DuoNeb PRN - CXR unchanged from prior admission Nausea - Sees Dr. Collins, has appt next week DM2 - A1C 5.7 on 06/26/18 - Continue home metformin and liraglutide - Hyperglycemia protocol - SSI Tobacco abuse - recently started chantix - successfully quit for a little over 2 weeks, but has restarted - Counselled and encouraged smoking cessation - nicotine patch PRN History of noncompliance - per Dr. Rodriguez's note Chronic conditions include: - urinary retention, constipation, MDD, fibromyalgia, GERD, HLD, HTN, PVD, cor pulmonale - aware and will restart home meds Code status: full code Dispo: pending 1200 BMP, possible discharge later today Ppx: Lovenox Diet: CC, NICOLE Addendum - Attending - Attending Attestation Date/Time: 09/13/182012 I personally evaluated the patient and discussed the management with Dr. Rivera I agree with the History, Examination, Assessment and Plan documented above with any addition or exceptions noted below. patient for EP study and possible ablation today. Rec RX review and d/c/adjust any RX causing sedation
[2018-09-13 07:33] LABS: Amphetamine Not Detected (NotDetected); Barbiturates Screen Not Detected (NotDetected); Benzodiazepine Screen Not Detected (NotDetected); Cocaine Metabolite Screen Not Detected (NotDetected); Medtox Control Line Valid? VALID (VALID); Medtox Reader # READER 4; Methadone Not Detected (NotDetected); Methamphetamine Not Detected (NotDetected); Opiate Screen Detected (NotDetected); Oxycodone Screen Not Detected (NotDetected); Phencyclidine (PCP) Not Detected (NotDetected); THC/Cannabinoid Screen Not Detected (NotDetected); Tricyclic Screen Not Detected (NotDetected)
[2018-09-13] MEDS: metFORMIN 500 MG TAB PO SCH ×2 (08:46→16:33)
[2018-09-13] MEDS: Enoxaparin Sodium 40 MG/0.4 ML SYRINGE SC SCH (08:47)
[2018-09-13] MEDS: Nicotine 21 MG PATCH TD SCH (08:47)
[2018-09-13] MEDS: Potassium Chloride 20 MEQ TAB PO SCH ×2 (08:52→16:33)
[2018-09-13] MEDS: Magnesium Oxide 400 MG TAB PO SCH (08:53)
[2018-09-13] MEDS: predniSONE 5 MG TAB PO SCH (08:53)
[2018-09-13] MEDS: Aspirin 81 mg Enteric Coated Tablet PO SCH (08:53)
[2018-09-13] MEDS: DULoxetine 30 MG CAP PO SCH ×2 (08:53→20:16)
[2018-09-13] MEDS: Bumetanide 1 MG TAB PO SCH (08:53)
[2018-09-13] MEDS: Gabapentin 300 MG CAP PO SCH ×4 (08:53→22:46)
[2018-09-13] MEDS: Varenicline Tartrate 0.5 MG TAB PO SCH ×2 (08:53→20:16)
[2018-09-13 09:36] LABS: Anion Gap 17 mmol/L (10-20); BUN (Urea Nitrogen) 58 mg/dL (9.8-20.1); Calc. Creatinine Clearance 85 mL/min (70-130); Calcium 9.1 mg/dL (7.8-10.44); Carbon Dioxide 31 mmol/L (22-29); Chloride 92 mmol/L (98-107); Estimated GFR-MDRD 61; Glucose 109 mg/dL (70-105); Magnesium 1.8 mg/dL (1.6-2.6); Phosphorus 2.9 mg/dL (2.3-4.7); Potassium 4.4 mmol/L (3.5-5.1); Sodium 136 mmol/L (136-145)
[2018-09-13] MEDS: HYDROcodone/Acetaminophen 7.5/325 mg Tablet PO PRN ×3 (10:55→23:26)
[2018-09-13] MEDS ORDERED: Heparin 10,000 UNITS/1 ML VIAL ONE (11:41)
--- NOTE | 2018-09-13 16:42 | PRG ---
DATE OF SERVICE: 09/13/2018 SUBJECTIVE: Ms. Valdovinos is doing well. No recurrent palpitations, dizziness, or loss of consciousness today. No fevers or chills. OBJECTIVE: VITAL SIGNS: Blood pressure is 102/52, heart rate 82, respiratory rate 24, temperature 98.5 degrees Fahrenheit. GENERAL: Alert and oriented woman, in no apparent distress. NECK: Supple. Jugular veins are distended. CHEST: Coarse. No crackles. HEART: Sounds are regular to rate and rhythm. No murmurs or gallops. ABDOMEN: Benign. Bowel sounds positive. EXTREMITIES: Lower extremities with mild bluish discoloration, but not cyanotic. Telemetry strip reveals sinus rhythm, no recurrent wide-complex arrhythmias. LABORATORY DATA: White count is 9.9, hemoglobin 12.6, platelet count is 193. Electrolytes normal. Sodium 136, potassium 4.4, BUN 50, creatinine 0.95. Urine culture, no growth to date. ASSESSMENT AND PLAN: Ms. Valdovinos is a pleasant 53-year-old woman with prior history of possible systemic lupus erythematosus, syncopal spells, right bundle-branch block, normal left ventricular ejection fraction, but dilated right ventricular cavity on echocardiogram with moderate pulmonary hypertension. She is here after another episode of syncopal spell. Now, she is doing stable. As I discussed with her yesterday, it would be reasonable to proceed with electrophysiology study and potential ablation versus implantable cardioverter-defibrillator implantation depending on the results to differentiate her wide-complex arrhythmia from supraventricular tachycardia versus ventricular tachycardia. We are planning for proceeding today, but due to unexpected emergencies in the [employer], the procedure postponed until tomorrow. Risks and benefits again discussed with her and family will schedule to proceed tomorrow afternoon. Job ID: [id number]
[2018-09-13] MEDS: Simvastatin 5 MG TAB PO SCH (20:16)
[2018-09-13] MEDS: tiZANidine HCl 4 MG TAB PO SCH (23:27)
--- NOTE | 2018-09-14 06:38 | PDOC.FM ---
- Subjective Subjective: Patient resting comfortably in bed. No complaints or concerns. Denies lightheadedness, dizziness, chest pain, palpitations. - Objective MAR Reviewed: Yes Vital Signs & Weight: Vital Signs (12 hours) Temp Pulse Resp BP BP Pulse Ox 09/14/18 05:19 98.3 F 80 16 87/54 L 94 L 09/13/18 23:40 96.4 F L 87 16 119/57 L 90 L 09/13/18 20:00 94 L 09/13/18 19:05 96.6 F L 104 H 12 113/54 L 90 L Weight Weight 79.878 kg I&O: 09/12/18 09/13/18 09/14/18 06:59 06:59 06:59 Intake Total 1810 1205 1140 Output Total 1000 0 1400 Balance 810 1205 -260 Result Diagrams: 09/14/18 09:20 09/14/18 09:20 Phys Exam - Physical Examination Constitutional: NAD HEENT: PERRLA, moist MMs, sclera anicteric Neck: supple, full ROM Respiratory: clear to auscultation bilateral Cardiovascular: RRR Gastrointestinal: soft, non-tender, no distention, positive bowel sounds Musculoskeletal: no edema Neurological: non-focal, moves all 4 limbs Psychiatric: normal affect, A&O x 3 Dx/Plan (1) Diabetes Code(s): E11.9 - TYPE 2 DIABETES MELLITUS WITHOUT COMPLICATIONS Status: Acute (2) Hypokalemia Code(s): E87.6 - HYPOKALEMIA Status: Acute (3) Nausea Code(s): R11.0 - NAUSEA Status: Acute (4) CHF (congestive heart failure) Code(s): I50.9 - HEART FAILURE, UNSPECIFIED Status: Chronic (5) COPD (chronic obstructive pulmonary disease) Status: Chronic Qualifiers: (6) Chronic lung disease Code(s): J98.4 - OTHER DISORDERS OF LUNG Status: Chronic (7) Diabetes mellitus, type II Status: Chronic (8) Fibromyalgia Status: Chronic (9) GERD (gastroesophageal reflux disease) Code(s): K21.9 - GASTRO-ESOPHAGEAL REFLUX DISEASE WITHOUT ESOPHAGITIS Status: Chronic (10) Hx of past noncompliance Code(s): Z91.19 - PATIENT'S NONCOMPLIANCE W OTH MEDICAL TREATMENT AND REGIMEN Status: Chronic (11) Hyperlipidemia Code(s): E78.5 - HYPERLIPIDEMIA, UNSPECIFIED Status: Chronic (12) Hypertension Code(s): I10 - ESSENTIAL (PRIMARY) HYPERTENSION Status: Chronic (13) Major depressive disorder Code(s): F32.9 - MAJOR DEPRESSIVE DISORDER, SINGLE EPISODE, UNSPECIFIED Status : Chronic (14) Narcotic dependency, continuous Code(s): F11.20 - OPIOID DEPENDENCE, UNCOMPLICATED Status: Chronic (15) PVD (peripheral vascular disease) with claudication Code(s): I73.9 - PERIPHERAL VASCULAR DISEASE, UNSPECIFIED Status: Chronic (16) Prolonged Q-T interval on ECG Code(s): R94.31 - ABNORMAL ELECTROCARDIOGRAM [ECG] [EKG] Status: Chronic (17) Pulmonary hypertension Code(s): I27.2 - OTHER SECONDARY PULMONARY HYPERTENSION * DO NOT USE * Status : Chronic (18) Tobacco abuse Code(s): Z72.0 - TOBACCO USE Status: Chronic - Plan Plan: Hypotension 2/2 Mild Dehydration - Reports she restricts fluids to about 1800 ml/day - Prescribed bumetanide 2 mg BID, may have been cause - decreased dose at last admission - reported SBP 60-70 on home BP cuff; one episode of low BP during stay; will continue to monitor Near syncopal Spells 2/2 hypotension vs tachycardia - tachycardia likely SVT, but unable to rule out ventricular tachycardia. - EP consulted - discussed electrophysiology with the patient for ablation of supravevntricular arrhythmia and possible ICD therapy. Patient has agreed to proceed with this therapy. Due to emergencies in the lab[employer] processing procedure postponed and scheduled for 09/14 now. Will f/u with patient after. Appreciate EP recs. - pt sees Dr. Izaguirre outpatient. Will have her follow up outpatient Elevated Lactic Acid - LA 3.7 -> 2.6 -> 1.9 - Will continue to monitor - afebrile, WBC 9.8; procal neg QTc prolongation - present on previous admission - QTc of 480, no EKG changes from prior EKG - May be 2/2 to hypokalemia vs medication vs other - Will monitor on tele overnight Hypokalemia - chronic problem, patient restarted on home meds of K and Mg - Will continue to replace as needed - Daily BMPs HFpEF, severe rt sided heart failure w/ diastolic dysfunction - Reports she restricts fluids to about 1800 ml/day - Decreased bumetanide dose during previous admission - Sees Dr. Izaguirre - Echocardiogram on 08/10/18: showed a technically difficult exam, EF was 55% to 60%, E/A flow reversal noted, mildly enlarged right ventricle, LA moderately dilated AV sclerotic, moderate AR, severe TR Chronic hypoxic respiratory failure 2/2 Interstitial lung disease - 3L NC @ home; PRN O2 to keep sats 88-92% - Satting 91-93% here on 3L NC, reports about the same as at home - Sees Dr. Rodriguez - DuoNeb PRN - CXR unchanged from prior admission Nausea - Sees Dr. Collins, has appt next week DM2 - A1C 5.7 on 06/26/18 - Continue home metformin and liraglutide - Hyperglycemia protocol - SSI Tobacco abuse - recently started chantix - successfully quit for a little over 2 weeks, but has restarted - Counselled and encouraged smoking cessation - nicotine patch PRN History of noncompliance - per Dr. Rodriguez's note Chronic conditions include: - urinary retention, constipation, MDD, fibromyalgia, GERD, HLD, HTN, PVD, cor pulmonale - aware and will restart home meds Code status: full code Dispo: EP procedure today, will monitor after procedure, possible d/c later today or tomorrow Ppx: Lovenox Diet: NICOLE BURCIAGA Addendum - Attending - Attending Attestation Date/Time: 09/14/18 [id number] I personally evaluated the patient and discussed the management with Dr. Rivera I agree with the History, Examination, Assessment and Plan documented above with any addition or exceptions noted below.For EP studies today patient still appears over medicated will adjust RX.
[2018-09-14 09:40] LABS: #Basophils 0.1 thou/uL (0.0-0.2); #Eosinphils 0.2 thou/uL (0.0-0.7); #Lymphocytes 4.6 thou/uL (1.20-3.40); #Monocytes 0.8 thou/uL (0.11-0.59); #Neutrophils 3.6 thou/uL (1.40-6.50); %Basophils 1.5 % (0.0-1.0); %Eosinophils 2.2 % (0.0-10.0); %Monocytes 8.8 % (0.0-10.0); %Neutrophils 38.6 % (42.0-75.0); Hemoglobin 12.4 g/dL (12.0-16.0); Mean Corpuscular HGB CONC 30.6 g/dL (32.0-36.0); Mean Corpuscular Hemoglobin 24.6 pg (27.0-31.0); Mean Corpuscular Volume 80.5 fL (78.0-98.0); Platelet Count 205 thou/uL (130-400); RBC Distribution Width 20.9 % (11.5-14.5); Red Blood Cell (RBC) Count 5.02 mill/uL (4.20-5.40); White Blood Cell (WBC) Count 9.3 thou/uL (4.8-10.8)
[2018-09-14 09:57] LABS: Anion Gap 18 mmol/L (10-20); BUN (Urea Nitrogen) 57 mg/dL (9.8-20.1); Calc. Creatinine Clearance 57 mL/min (70-130); Calcium 9.3 mg/dL (7.8-10.44); Carbon Dioxide 32 mmol/L (22-29); Chloride 91 mmol/L (98-107); Estimated GFR-MDRD 39; Glucose 148 mg/dL (70-105); Hypochromia SLIGHT = 6-15 cells (100X) (0-5/hpf); MDiff Complete? YES; Ovalocytes SLIGHT = 2-5 cells (100X) (0-1/hpf); Polychromasia SLIGHT = 2-3 cells (100X) (0-2/hpf); Potassium 4.6 mmol/L (3.5-5.1); Sodium 136 mmol/L (136-145)
[2018-09-14] MEDS: metFORMIN 500 MG TAB PO SCH ×2 (11:57→16:29)
[2018-09-14] MEDS: Magnesium Oxide 400 MG TAB PO SCH (11:58)
[2018-09-14] MEDS: Potassium Chloride 20 MEQ TAB PO SCH ×2 (11:58→16:29)
[2018-09-14] MEDS: Bumetanide 1 MG TAB PO SCH (11:58)
[2018-09-14] MEDS: Nicotine 21 MG PATCH TD SCH (11:58)
[2018-09-14] MEDS: Enoxaparin Sodium 40 MG/0.4 ML SYRINGE SC SCH (11:58)
[2018-09-14] MEDS: Aspirin 81 mg Enteric Coated Tablet PO SCH (11:58)
[2018-09-14] MEDS: Gabapentin 300 MG CAP PO SCH ×3 (11:58→21:13)
[2018-09-14] MEDS: DULoxetine 30 MG CAP PO SCH ×2 (11:58→21:13)
[2018-09-14] MEDS: predniSONE 5 MG TAB PO SCH (11:59)
[2018-09-14] MEDS: Varenicline Tartrate 0.5 MG TAB PO SCH ×2 (11:59→21:13)
[2018-09-14] MEDS: HYDROcodone/Acetaminophen 5/325 mg Tablet PO SCH ×2 (14:03→21:16)
[2018-09-14] MEDS ORDERED: PROPOFOL 200 MG/20 ML VIAL ONE (15:06)
[2018-09-14] MEDS ORDERED: Levofloxacin 500 mg/D5W 100 ml Premix Bag ONE (16:18)
[2018-09-14] MEDS ORDERED: Clindamycin/D5W 600 mg/50 ml Premix Bag ONE (16:18)
[2018-09-14] MEDS ORDERED: Lidocaine 1% (PF) 30 ML VIAL ONE (16:26)
[2018-09-14] MEDS ORDERED: PROPOFOL 20 ML ONE (17:16)
[2018-09-14] MEDS ORDERED: Isoproterenol 0.2 MG/1 ML AMP ONE (17:24)
[2018-09-14] MEDS ORDERED: Heparin 10,000 UNITS/1 ML VIAL ONE (18:10)
[2018-09-14] MEDS ORDERED: Propofol 500 MG/50 ML VIAL ONE (18:13)
[2018-09-14] MEDS: Simvastatin 5 MG TAB PO SCH (21:13)
[2018-09-15] MEDS: HYDROcodone/Acetaminophen 5/325 mg Tablet PO SCH ×2 (05:56→13:54)
--- NOTE | 2018-09-15 06:40 | PDOC.FM ---
Addendum entered and electronically signed by Lakesha Rivera MD 09/15/18 09:05 : Added problem HLD: - switched patient from simvastatin to atorvastatin high intensity; ASCVD risk 9 % Original Note: - Subjective Subjective: No events overnight. Patient states she feels well this morning. No recurrence of lightheaded, dizziness or lethargy. Denies palpitations. States she had ablation procedure yesterday and has felt well since then. Patient states she feels she is ready to go home. Denies chest pain, abdominal pain, NVD. - Objective MAR Reviewed: Yes Vital Signs & Weight: Vital Signs (12 hours) Temp Pulse Resp BP BP BP BP 09/15/18 03:15 97.9 F 91 20 124/59 L 09/15/18 00:05 91 18 121/60 09/14/18 22:00 87 16 09/14/18 19:46 97.9 F 83 15 106/59 L 09/14/18 19:37 98.7 F 83 20 106/59 L Pulse Ox 09/15/18 03:15 91 L 09/15/18 00:05 09/14/18 22:00 96 09/14/18 19:46 15 L 09/14/18 19:37 92 L Weight Weight 82.1 kg I&O: 09/13/18 09/14/18 09/15/18 06:59 06:59 06:59 Intake Total 1205 1140 1060 Output Total 0 1400 1800 Balance 1205 260 -600 Result Diagrams: 09/15/18 04:57 09/15/18 04:57 Phys Exam - Physical Examination Constitutional: NAD HEENT: moist MMs, sclera anicteric Neck: supple Respiratory: clear to auscultation bilateral Cardiovascular: RRR Gastrointestinal: soft, non-tender, no distention, positive bowel sounds Musculoskeletal: no edema Neurological: non-focal Psychiatric: normal affect, A&O x 3 Dx/Plan (1) Diabetes Code(s): E11.9 - TYPE 2 DIABETES MELLITUS WITHOUT COMPLICATIONS Status: Acute (2) Hypokalemia Code(s): E87.6 - HYPOKALEMIA Status: Acute (3) Nausea Code(s): R11.0 - NAUSEA Status: Acute (4) CHF (congestive heart failure) Code(s): I50.9 - HEART FAILURE, UNSPECIFIED Status: Chronic (5) COPD (chronic obstructive pulmonary disease) Status: Chronic Qualifiers: (6) Chronic lung disease Code(s): J98.4 - OTHER DISORDERS OF LUNG Status: Chronic (7) Diabetes mellitus, type II Status: Chronic (8) Fibromyalgia Status: Chronic (9) GERD (gastroesophageal reflux disease) Code(s): K21.9 - GASTRO-ESOPHAGEAL REFLUX DISEASE WITHOUT ESOPHAGITIS Status: Chronic (10) Hx of past noncompliance Code(s): Z91.19 - PATIENT'S NONCOMPLIANCE W OTH MEDICAL TREATMENT AND REGIMEN Status: Chronic (11) Hyperlipidemia Code(s): E78.5 - HYPERLIPIDEMIA, UNSPECIFIED Status: Chronic (12) Hypertension Code(s): I10 - ESSENTIAL (PRIMARY) HYPERTENSION Status: Chronic (13) Major depressive disorder Code(s): F32.9 - MAJOR DEPRESSIVE DISORDER, SINGLE EPISODE, UNSPECIFIED Status : Chronic (14) Narcotic dependency, continuous Code(s): F11.20 - OPIOID DEPENDENCE, UNCOMPLICATED Status: Chronic (15) PVD (peripheral vascular disease) with claudication Code(s): I73.9 - PERIPHERAL VASCULAR DISEASE, UNSPECIFIED Status: Chronic (16) Prolonged Q-T interval on ECG Code(s): R94.31 - ABNORMAL ELECTROCARDIOGRAM [ECG] [EKG] Status: Chronic (17) Pulmonary hypertension Code(s): I27.2 - OTHER SECONDARY PULMONARY HYPERTENSION * DO NOT USE * Status : Chronic (18) Tobacco abuse Code(s): Z72.0 - TOBACCO USE Status: Chronic - Plan Plan: Hypotension 2/2 Mild Dehydration - Reports she restricts fluids to about 1800 ml/day - Prescribed bumetanide 2 mg BID, may have been cause - decreased dose at last admission - reported SBP 60-70 on home BP cuff; one episode of low BP during stay; will continue to monitor Near syncopal Spells 2/2 hypotension vs tachycardia - tachycardia likely SVT, but unable to rule out ventricular tachycardia. - EP consulted - Appreciate EP recs. Patient had ablation procedure 09/14. Patient doing well post op. - pt sees Dr. Izaguirre outpatient. Will have her follow up outpatient - d/c tizanidine and movantik; decreased dosage of gabapentin, norco, and cymbalta on 09/13 - improved symptoms since then, no more episodes of near syncope, lethargy or tachycardia Elevated Lactic Acid - LA 3.7 -> 2.6 -> 1.9 - Will continue to monitor - afebrile, WBC 9.8; procal neg QTc prolongation - present on previous admission - QTc of 480, no EKG changes from prior EKG - May be 2/2 to hypokalemia vs medication vs other - Will monitor on tele overnight Hypokalemia - chronic problem, patient restarted on home meds of K and Mg - Will continue to replace as needed - Daily BMPs HFpEF, severe rt sided heart failure w/ diastolic dysfunction - Reports she restricts fluids to about 1800 ml/day - Decreased bumetanide dose during previous admission - Sees Dr. Izaguirre - Echocardiogram on 08/10/18: showed a technically difficult exam, EF was 55% to 60%, E/A flow reversal noted, mildly enlarged right ventricle, LA moderately dilated AV sclerotic, moderate AR, severe TR Chronic hypoxic respiratory failure 2/2 Interstitial lung disease - 3L NC @ home; PRN O2 to keep sats 88-92% - Satting 91-93% here on 3L NC, reports about the same as at home - Sees Dr. Rodriguez - will f/u outpatient - DuoNeb PRN - CXR unchanged from prior admission Nausea - Sees Dr. Collins, has appt next week DM2 - A1C 5.7 on 06/26/18 - Continue home metformin and liraglutide - Hyperglycemia protocol; SSI Tobacco abuse - recently started chantix - successfully quit for a little over 2 weeks, but has restarted - Counselled and encouraged smoking cessation - nicotine patch PRN - pt plans to continue trying to quit after discharge from hospital History of noncompliance - per Dr. Rodriguez's note Chronic conditions include: - urinary retention, constipation, MDD, fibromyalgia, GERD, HLD, HTN, PVD, cor pulmonale - aware and will restart home meds Code status: full code Dispo: discharge today w/ close outpatient follow up Ppx: Lovenox Diet: CCNICOLE Addendum - Attending - Attending Attestation Date/Time: 09/15/18 1979 I personally evaluated the patient and discussed the management with Dr. Rivera I agree with the History, Examination, Assessment and Plan documented above with any addition or exceptions noted below. D?C today close f/u with HF clinic and [facility] next week.
[2018-09-15 06:46] LABS: #Basophils 0.1 thou/uL (0.0-0.2); #Eosinphils 0.2 thou/uL (0.0-0.7); #Lymphocytes 3.7 thou/uL (1.20-3.40); #Monocytes 0.6 thou/uL (0.11-0.59); #Neutrophils 3.5 thou/uL (1.40-6.50); %Basophils 1.2 % (0.0-1.0); %Eosinophils 2.4 % (0.0-10.0); %Lymphocytes 45.6 % (21.0-51.0); %Monocytes 7.6 % (0.0-10.0); %Neutrophils 43.2 % (42.0-75.0); Hemoglobin 11.2 g/dL (12.0-16.0); Mean Corpuscular HGB CONC 29.1 g/dL (32.0-36.0); Mean Corpuscular Hemoglobin 23.4 pg (27.0-31.0); Mean Corpuscular Volume 80.4 fL (78.0-98.0); Mean Platelet Volume 11.7 fL (7.4-10.4); Platelet Count 173 thou/uL (130-400); RBC Distribution Width 20.6 % (11.5-14.5); Red Blood Cell (RBC) Count 4.81 mill/uL (4.20-5.40)
[2018-09-15 06:55] LABS: Anion Gap 17 mmol/L (10-20); BUN (Urea Nitrogen) 38 mg/dL (9.8-20.1); Calc. Creatinine Clearance 89 mL/min (70-130); Calcium 9.6 mg/dL (7.8-10.44); Carbon Dioxide 32 mmol/L (22-29); Chloride 92 mmol/L (98-107); Estimated GFR-MDRD 62; Glucose 183 mg/dL (70-105); Phosphorus 3.5 mg/dL (2.3-4.7); Potassium 3.6 mmol/L (3.5-5.1); Sodium 137 mmol/L (136-145)
[2018-09-15 07:42] LABS: Band 5 % (5-11); Eosinophils 1 % (0-10); Hypochromia SLIGHT = 6-15 cells (100X) (0-5/hpf); Lymphocytes 46 % (21-51); MDiff Complete? YES; Monocytes 5 % (0-10); Neutrophil 41 % (42-75); Platelet Morphology Comment Appears Adequate; Polychromasia SLIGHT = 2-3 cells (100X) (0-2/hpf); Reactive Lymphocytes 1 % (0-10)
[2018-09-15] MEDS: Gabapentin 300 MG CAP PO SCH ×2 (09:13→13:57)
[2018-09-15] MEDS: Magnesium Oxide 400 MG TAB PO SCH (09:13)
[2018-09-15] MEDS: predniSONE 5 MG TAB PO SCH (09:13)
[2018-09-15] MEDS: metFORMIN 500 MG TAB PO SCH (09:13)
[2018-09-15] MEDS: Bumetanide 1 MG TAB PO SCH (09:13)
[2018-09-15] MEDS: DULoxetine 30 MG CAP PO SCH (09:14)
[2018-09-15] MEDS: Enoxaparin Sodium 40 MG/0.4 ML SYRINGE SC SCH (09:14)
[2018-09-15] MEDS: Aspirin 81 mg Enteric Coated Tablet PO SCH (09:14)
[2018-09-15] MEDS: Potassium Chloride 20 MEQ TAB PO SCH (09:14)
[2018-09-15] MEDS: Varenicline Tartrate 0.5 MG TAB PO SCH (09:15)
[2018-09-15] MEDS: Nicotine 21 MG PATCH TD SCH (09:15)
--- NOTE | 2018-09-15 10:56 | OP ---
DATE OF PROCEDURE: 09/14/2018 Electrophysiology study and radiofrequency ablation report. REASON FOR PROCEDURE: Ms. Valdovinos is a 53-year-old woman with history of syncopal and near syncopal spells, history of SLE, history of wider complex arrhythmia, but similar morphology to baseline are documented nonsustained on telemetry. She is here for an EP study, possible ablation. She also has history of normal LV function, but dilated right ventricle and some degree of pulmonary hypertension. DESCRIPTION OF PROCEDURE: The patient received propofol by Anesthesia specialist. The left and right femoral venous area were prepped, draped, and anesthetized using subcutaneous lidocaine and with ultrasound guidance the left femoral vein was accessed x2 and right femoral vein x1. On the left, a 6 and 8-Algerian sheaths were introduced through, which a decapolar and an octapolar catheters were advanced to the right atrium, right ventricle, His bundle and CS location. Pacing, mapping and recording were performed in each location with the following finding. Baseline rhythm is sinus rhythm at a length of 746 milliseconds. LA is 166 milliseconds, QRS 110 milliseconds. Nonspecific interventricular conduction delay is seen. QTc is 391 milliseconds, AH 110 milliseconds, HV is 48 milliseconds at baseline. Sinus node recovery time after 500 milliseconds, overdrive pacing is 1571. Corrected sinus node recovery time was about 800 milliseconds. The AV Wenckebach cycle length was 320 milliseconds. Retrograde Wenckebach cycle length was 430 milliseconds. AV debra ERP was measured at 600/280 milliseconds. Concentric retrograde VA conduction was seen. Dual AV debra physiology was present, but no echo beats were documented. Following that, burst atrial pacing was performed, which was able to induce initial nonsustained but with Isuprel sustained atrial flutter, which appears to be typical isthmus dependent in morphology in the CS activation. Overdrive burst pacing both at the CS 9-10 yielded shorter post pacing interval than in the lateral CS suggestive of right atrial origin. Isthmus dependency. Following that through a right femoral venous 8-Algerian sheath, a [employer] SFST catheter was advanced to the right atrium. 3D map of the right atrium was obtained. With proximal CS pacing, cavotricuspid isthmus ablation was performed prolonging the transisthmus time to 150 milliseconds. Transisthmus block was documented by longest transisthmus time adjacent to the ablation line. Burst atrial pacing did not induce arrhythmias on and off Isuprel. The transisthmus block was rechecked on Isuprel. Ventricular extrastimulation testing performed with 600 and 400ms drivetrain and up to 3 VES decremented to refractory period. This was repeated on isuprel. No VT was induced. A total of 16 lesions delivered at total duration of 5 minutes and 46 seconds. Post ablation, the silhouette of the left atrium and pericardial space did not change. The patient tolerated the procedure well. CONCLUSION: 1. Inducible atrial flutter, which is typical isthmus dependent morphology. 2. Successful cavotricuspid isthmus ablation eliminated inducibility. 3. Dual AV debra physiology without evident echo beats or inducibility of AV debar reentrant tachycardia is not noted. 4. Abnormal sinus node recovery time at baseline. 5. No inducible Ventricular tachycardia by standard induction on and off isuprel. No indication for ICD. PLAN: Routine post ablation monitoring. Consider pacing, if mily symptoms occur after tapering off AV debra blocking agents. Job ID: [id number] [facility]
[2018-09-15 11:41] VITALS: BP 106/56
[2018-09-15] MEDS: HumaLOG 300 UNITS/3 ML VIAL SC PRN (11:46)
--- NOTE | 2018-09-15 15:27 | PDOC.CTH ---
Cardiology Progress Note - Subjective EP PROGRESS NOTE: 09/15/18 Patient seen as follow up for WCT s/p EPS and ablation. Feels well today. No bleeding at groin sites. No cardiac concerns or complaints. Anticipating DC home today - Objective Vital Signs Temp Pulse Resp BP Pulse Ox 09/15/18 11:08 97.5 F L 107 H 21 H 106/56 L 91 L 09/15/18 09:24 98.0 F 09/15/18 08:15 94 L 09/15/18 07:14 97.0 F L 83 18 107/62 94 L Weight 181 lb 09/14/18 09/15/18 09/16/18 06:59 06:59 06:59 Intake Total 1140 1060 Output Total 1400 1800 Balance -260 -740 - Physical Examination General/Neuro: alert & oriented x3, NAD Neck: carotid US brisk, no JVD present Lungs: CTA Heart: PMI normal, RRR Abdomen: NT/ND, soft - Telemetry Telemetry Rhythm: SR - Labs Result Diagrams: 09/15/18 04:57 09/15/18 04:57 Troponin/CKMB Troponin I 0.019 ng/mL (< 0.028) 09/11/18 06:15 - Assessment/Plan 1. Typical atrial flutter - induced during EPS. - No VT was inducible. - s/p CTI ablation - 30 days Eliquis 5mg PO BID. Patient will stop by clinic for 30 day coupon and samples as well as to schedule follow up 2. Dual AV debra physiology - no echo beats - non inducible for AVNRT 3. Prolonged Sinus node recover time - caution with AV debra blocking agents. If bradycardia seen, wean off these agents. 4. Tobacco abuse - stop smoking cigarettes 5. COPD OK to DC
[2018-09-15 16:08] VITALS: TEMP 97.6
--- NOTE | 2018-09-15 20:32 | EKG ---
Test Reason : Blood Pressure : / mmHG Vent. Rate : 095 BPM Atrial Rate : 095 BPM P-R Int : 150 ms QRS Dur : 130 ms QT Int : 406 ms P-R-T Axes : 060 138 -36 degrees QTc Int : 510 ms Normal sinus rhythm Possible Left atrial enlargement Right bundle branch block T wave abnormality, consider inferior ischemia Abnormal ECG When compared with ECG of 11-SEP-2018 06:05, (Unconfirmed) Right bundle branch block has replaced Non-specific intra-ventricular conduction block Confirmed by Austen COOK ([id number]) on 09/15/2018 8:32:04 PM Referred By: JAX Confirmed By:Austen COOK
[2018-09-15] MEDS ORDERED: Apixaban 5 MG TAB PO SCH (21:00)
[2018-09-15] MEDS ORDERED: Atorvastatin Calcium 40 MG TAB PO SCH (21:00)
--- NOTE | 2018-09-15 21:11 | EKG ---
Test Reason : POST OP Blood Pressure : / mmHG Vent. Rate : 083 BPM Atrial Rate : 083 BPM P-R Int : 152 ms QRS Dur : 116 ms QT Int : 410 ms P-R-T Axes : 074 146 -41 degrees QTc Int : 481 ms Sinus rhythm with Premature supraventricular complexes Possible Left atrial enlargement Left posterior fascicular block Septal infarct , age undetermined Inferior infarct , age undetermined Abnormal ECG When compared with ECG of 12-SEP-2018 11:48, (Unconfirmed) Premature supraventricular complexes are now Present Right bundle branch block is no longer Present Septal infarct is now Present Nonspecific T wave abnormality, worse in Anterior leads Confirmed by Austen COOK ([id number]) on 09/15/2018 9:10:32 PM Referred By: Janette CAMARA Confirmed By:Austen COOK
--- NOTE | 2018-09-15 21:14 | EKG ---
Test Reason : Blood Pressure : / mmHG Vent. Rate : 089 BPM Atrial Rate : 089 BPM P-R Int : 154 ms QRS Dur : 118 ms QT Int : 402 ms P-R-T Axes : 066 151 -40 degrees QTc Int : 489 ms Sinus rhythm with occasional Premature ventricular complexes and Premature atrial complexes Right axis deviation Incomplete right bundle branch block Possible Right ventricular hypertrophy Septal infarct (cited on or before 14-SEP-2018) Inferior infarct (cited on or before 14-SEP-2018) Abnormal ECG When compared with ECG of 14-SEP-2018 19:14, (Unconfirmed) Premature ventricular complexes are now Present Questionable change in initial forces of Septal leads Nonspecific T wave abnormality, improved in Anterior leads Confirmed by Austen COOK ([id number]) on 09/15/2018 9:14:13 PM Referred By: MAKENZIE Confirmed By:Austen COOK
--- NOTE | 2018-09-16 11:43 | EKG ---
Test Reason : Blood Pressure : / mmHG Vent. Rate : 086 BPM Atrial Rate : 086 BPM P-R Int : 156 ms QRS Dur : 132 ms QT Int : 402 ms P-R-T Axes : 061 151 -41 degrees QTc Int : 481 ms Normal sinus rhythm Possible Left atrial enlargement Right axis deviation Non-specific intra-ventricular conduction block Abnormal ECG No acute changes Confirmed by MARQUITA YAP ([id number]), purchase request editor FATOUMATA BENITEZ ([id number]) on 09/16/2018 11:42:44 AM Referred By: Confirmed By:MARQUITA YAP
--- NOTE | 2018-09-17 23:54 | DIS ---
DATE OF ADMISSION: 09/11/2018 DATE OF DISCHARGE: 09/15/2018 RESIDENT: Lakesha Rivera MD. ADMITTING ATTENDING: Wale Lynch MD DISCHARGE ATTENDING: Wale Lynch MD CONSULTANTS: Case Management, Electrophysiology PROCEDURES: Electrophysiology ablation on 09/14/2018. PRIMARY DIAGNOSES: Typical atrial flutter; mild dehydration; hypotension; elevated lactic acid, resolved; hypokalemia. SECONDARY DIAGNOSES: Heart failure with preserved ejection fraction, chronic obstructive pulmonary disease secondary to interstitial lung disease, diabetes type 2, tobacco abuse, history of noncompliance, fibromyalgia, gastroesophageal reflux disease, hyperlipidemia, hypotension, peripheral vascular disease, Cor pulmonale , urinary retention, and major depressive disorder. DISCHARGE MEDICATIONS: 1. Lipitor 40 mg oral at bedtime. 2. [place] 5/325 one tablet oral every 8 hours. 3. Melatonin 3 mg oral at bedtime as needed. 4. Senokot 2 tablets oral twice daily as needed. 5. Aspirin 81 mg oral daily. 6. ProAir 2 puffs inhalation 3 times daily as needed. 7. Spiriva 18 mcg inhalation daily. 8. Victoza 1.2 mg subcutaneous daily. 9. Metformin 1000 mg twice daily as needed. 10. Cymbalta 30 mg oral twice daily. 11. Magnesium 400 mg oral daily. 12. Potassium chloride 40 mEq oral twice daily. 13. Gabapentin 2 tablets oral 3 times daily. 14. Chantix 1 tablet oral twice daily. 15. Bumex 2 mg oral daily. 16. Prednisone 5 mg oral daily. DISCONTINUED MEDICATIONS: 1. Hydrocodone-acetaminophen ([place]) 10/325 one each oral 4 times daily as needed. 2. Movantik 1 tablet oral daily 3. Tizanidine HISTORY OF PRESENT ILLNESS/HOSPITAL COURSE: This is a 53-year-old female who presented to the ED with a chief complaint of getting multiple low blood pressures taken at home. The patient states that she became dizzy and recorded a systolic blood pressure at 60 to 70. The patient took this blood pressure with the cuff that she had gotten from family member at that time. The patient states that during this episode, she was nauseous and had an episode of nonbloody vomiting. The patient states that she felt like the room was spinning during this time. The patient also endorsed generalized weakness. Of note, the patient was recently hospitalized 2 times in the past month for UTI, multiple falls, and sepsis. The patient denies syncope with the episode that brought her for this admission. The patient denied any additional falls. The patient also endorses palpitations that resolved after 30 seconds yesterday and associated with the event. The patient is on 3 L of oxygen at home due to her interstitial lung disease. The patient was given 3 mL DuoNebs and 125 mg IV Solu-Medrol in the emergency department. The patient's vital signs upon admission were within normal limits. The patient had a creatinine of 1.42 that was slightly above her baseline. The patient had a UA that was clean. The patient was admitted onto telemetry to monitor blood pressure and heart rate. The patient also was found to have an elevated lactic acid of 3.7, which resolved to 1.9 at the end of her hospitalization. The patient remained afebrile throughout her hospitalization. Procalcitonin was negative. The patient also has a history of QTc prolongation. On 09/12/2018, the patient had another episode of low blood pressure and lethargy. It was decided to decrease the dosages and discontinue some medications at this time. The patient's [place] dosage was decreased. Tizanidine and Movantik were discontinued. The patient also had a run of SVT. Episode of SVT occurred on 09/12/2018. The patient sees Dr. Izaguirre, outpatient cardiology, who recommended consulting Electrophysiology. Electrophysiology saw the patient and recommended ablation procedure. The patient underwent ablation procedure on 09/14/2018. The procedure was successful with no complications noted. The patient did not have any other episode of hypotension or tachycardia throughout her stay. Recommend the patient to follow up outpatient PCP and Heart Failure Clinic within the next week. DISPOSITION: Stable. DISCHARGE INSTRUCTIONS: 1. Location: Home. 2. Activity: Ad gallo. 3. Diet: Heart healthy. 4. Followup: Follow up with PCP within 3 to 4 days, follow up with Heart Clinic as appointment scheduled for next Tuesday. Job ID: [id number] [facility]ITALDom[facility]
== END 2018-09-15 18:15 | disposition home or self-care (01) | DRG 274 ==
LOC: ERS 05:17 → ERHOLD 07:40 → OBSVTOIN 07:40 → 2SW 20:42
PROVIDERS: ADMIT Emergency Medicine; ATTEND Emergency Medicine
PROC: 02583ZZ Destruction of Conduction Mechanism, Percutaneous Approach (ICD-10-PCS; principal; 2018-09-14)
PROC: 4A023FZ Measurement of Cardiac Rhythm, Percutaneous Approach (ICD-10-PCS; 2018-09-14)
PROC: 4A0234Z Measurement of Cardiac Electrical Activity, Percutaneous Approach (ICD-10-PCS; 2018-09-14)
PROC: 02K83ZZ Map Conduction Mechanism, Percutaneous Approach (ICD-10-PCS; 2018-09-14)
DX: I47.1 Supraventricular tachycardia (principal); I50.32 Chronic diastolic (congestive) heart failure; J96.11 Chronic respiratory failure with hypoxia; F11.20 Opioid dependence, uncomplicated; E86.0 Dehydration; E11.51 Type 2 diabetes mellitus with diabetic peripheral angiopathy without gangrene; I11.0 Hypertensive heart disease with heart failure; K21.9 Gastro-esophageal reflux disease without esophagitis; F32.9 Major depressive disorder, single episode, unspecified; F17.210 Nicotine dependence, cigarettes, uncomplicated; E87.6 Hypokalemia; J44.9 Chronic obstructive pulmonary disease, unspecified; J98.4 Other disorders of lung; M79.7 Fibromyalgia; Z91.19 Patient's noncompliance with other medical treatment and regimen; I45.81 Long QT syndrome; I27.20 Pulmonary hypertension, unspecified; I45.10 Unspecified right bundle-branch block; I48.92 Unspecified atrial flutter; R33.9 Retention of urine, unspecified; I95.9 Hypotension, unspecified; Z99.81 Dependence on supplemental oxygen; Z88.0 Allergy status to penicillin; Z79.82 Long term (current) use of aspirin; Z79.84 Long term (current) use of oral hypoglycemic drugs; Z90.49 Acquired absence of other specified parts of digestive tract
CPT/HCPCS: 36415; 36416; 71045; 76942; 80048; 80053; 80306; 80307; 81003; 81015; 82550; 83605; 83735; 83880; 84100; 84145; 84484; 85025; 87086; 87804; 93005; 93010; 93613; 93621; 93623; 93653; 94640; 96374; 99406; C1730; C1769; J1644; J1650; J1815; J1956; J2001; J2704; J2930; J3370; J3480; J3490; J7620; Q0162

== ENCOUNTER 2018-10-05 11:28 | Observation (INO) | payer OTHER ==
[2018-10-05 13:00] VITALS: BMI 29.2
[2018-10-05] MEDS ORDERED: Ondansetron PF 4 MG/2 ML Vial IVP PRN (13:11)
[2018-10-05 13:56] LABS: #Basophils 0.2 thou/uL (0.0-0.2); #Eosinphils 0.2 thou/uL (0.0-0.7); #Lymphocytes 3.8 thou/uL (1.20-3.40); #Monocytes 0.4 thou/uL (0.11-0.59); #Neutrophils 7.2 thou/uL (1.40-6.50); %Basophils 1.6 % (0.0-1.0); %Eosinophils 1.6 % (0.0-10.0); %Lymphocytes 32.3 % (21.0-51.0); %Monocytes 3.7 % (0.0-10.0); %Neutrophils 60.8 % (42.0-75.0); Hemoglobin 14.8 g/dL (12.0-16.0); Mean Corpuscular HGB CONC 30.1 g/dL (32.0-36.0); Mean Corpuscular Hemoglobin 23.7 pg (27.0-31.0); Mean Platelet Volume 11.5 fL (7.4-10.4); Platelet Count 289 thou/uL (130-400); RBC Distribution Width 20.5 % (11.5-14.5); Red Blood Cell (RBC) Count 6.23 mill/uL (4.20-5.40); White Blood Cell (WBC) Count 11.9 thou/uL (4.8-10.8)
--- NOTE | 2018-10-05 14:12 | RAD ---
PORTABLE CHEST ONE VIEW: Date: 10-05-18 Time: 12:19 p.m. History: Chest pain and hypoxia. FINDINGS: Comparison made with exam of 09-11-18. The heart is enlarged. The lungs are expanded without focal areas of consolidation, pneumothoraces, f rank pulmonary edema or pleural effusions. IMPRESSION: No acute process. POS: C
[2018-10-05 14:20] LABS: ALT (SGPT) Less than 7 U/L (8-55); AST (SGOT) 13 U/L (5-34); Albumin 4.5 g/dL (3.5-5.0); Alkaline Phosphatase 79 U/L (40-150); Anion Gap 26 mmol/L (10-20); BUN (Urea Nitrogen) 42 mg/dL (9.8-20.1); Bilirubin, Total 1.2 mg/dL (0.2-1.2); Calc. Creatinine Clearance 52 mL/min (70-130); Calcium 11.2 mg/dL (7.8-10.44); Carbon Dioxide 31 mmol/L (22-29); Chloride 83 mmol/L (98-107); Estimated GFR-MDRD 36; Globulin 4.2 g/dL (2.4-3.5); Glucose 202 mg/dL (70-105); Magnesium 1.3 mg/dL (1.6-2.6); Phosphorus 5.2 mg/dL (2.3-4.7); Protein, Total 8.7 g/dL (6.0-8.3); Sodium 137 mmol/L (136-145)
--- NOTE | 2018-10-05 14:21 | PDOC.FPRHP ---
- History of Present Illness Chief Complaint: chest pain History of Present Illness: The patient is a 53YOF with a PMH significant for COPD w/ chronic hypoxic respiratory failure on 3L O2 at home, DMII, HTN, PVD, & significant tobacco use who was sent over from clinic after complaining of intermittent chest pain over the last 2 days. Of note, the patient was recently discharged on 09/15/18 after being hospitalized for atrial flutter & underwent a cardiac ablation. The patient reports that the pain began about 2 days ago and stated it was left sided, non-radiating, pressure-like pain that was exacerbated by movement or exertion. She says the pain lasted ~2 seconds and went away on its own. The patient also said she has had about 2 episodes per day since it began but no episodes today. She denies any associated SOB, N/V, or diaphoresis but does endorse some associated lightheadedness. 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 Says she has never had a C. ED Course: Patient was directly admitted to the medical floor. - Allergies/Adverse Reactions Allergies Allergy/AdvReac Type Severity Reaction Status Date / Time adhesive Allergy Verified 10/05/18 12:53 Penicillins Allergy Verified 10/05/18 12:53 pregabalin [From Lyrica] Allergy Verified 10/05/18 12:53 - Home Medications Medication Instructions Recorded Confirmed Type Aspirin [Ecotrin Low Strength] 81 mg PO DAILY #0 tab 02/12/16 10/05/18 Rx Albuterol Sulfate [Proair HFA] 2 puff INH TID PRN 05/10/16 10/05/18 History DULoxetine HCl [Cymbalta] 30 mg PO BID 11/11/16 10/05/18 History Liraglutide [Victoza 2-Lion] 1.2 mg SC DAILY 11/11/16 10/05/18 History Tiotropium [Spiriva Handihaler] 18 mcg INH DAILY 11/11/16 10/05/18 History metFORMIN HCl 1,000 mg PO BID-WM 11/11/16 10/05/18 History Magnesium Oxide [Magnesium] 400 mg PO DAILY 12/18/16 10/05/18 History Potassium Chloride [K-Tab ER] 40 meq PO BID 01/06/17 10/05/18 History Gabapentin 2 tab PO TID 07/25/17 10/05/18 History predniSONE [Prednisone] 5 mg PO DAILY 09/11/18 10/05/18 History Sennosides/Docusate Sodium 2 tab PO BID PRN #60 tab 09/15/18 10/05/18 Rx [Senokot S] Albuterol Sulfate [Albuterol 1.25 mg NEB Q4HR PRN 10/05/18 10/05/18 History Sulfate Neb] Bumetanide [Bumex] 4 mg PO BID 10/05/18 10/05/18 History HYDROcodone Bit/APAP 10/325 [Russell 1 tab PO QID PRN 10/05/18 10/05/18 History 10/325] Pantoprazole [Protonix] 40 mg PO DAILY 10/05/18 10/05/18 History - History PMHx: chronic hypoxic respiratory failure, ILD, COPD, HFpEF, PCD, HTN, HLD, GERD , fibromyalgia, depression, CKD III, DMII PSHx: tonsillectomy, appe, kelly, L knee surgery, aortobypass surgery in 2017 FHx: Mom and grandfather- CVA Maternal grandmother & mom- DMII Social: 50 pack year smoking history. Quit for a few weeks but started back recently. Currently smoking ~1/2ppd. No EtOH or drug use. - Review of Systems General: denies: fever/chills, weight/appetite/sleep changes Eyes: denies: eye pain, vision changes ENT: reports: nasal congestion, other (no sore throat) Respiratory: denies: cough, shortness of breath Cardiovascular: reports: chest pain. denies: edema, paroxysmal nocturnal dyspnea, orthopnea Gastrointestinal: reports: constipation. denies: nausea, vomiting, diarrhea, abdominal pain Genitourinary: reports: other (urinary retention). denies: dysuria Skin: denies: rashes, itching Musculoskeletal: reports: pain. denies: swelling Neurological: reports: other (lightheadedness). denies: syncope Psychological: reports: anxiety, depression - Vital signs BP: 93/53 HR: 108 RR: 20 Tmax: 98.4F Pox: 91% on 3L NC Wt: 77.383 kg - Physical Exam Constitutional: NAD, well developed -Constitutional: In and out of consciousness at beginning of interview HEENT: normocephalic and atraumatic, grossly normal vision, grossly normal hearing Neck: supple, FROM Heart: RRR, normal S1/S2, no murmurs/rubs/gallops, no edema, other (pulses difficult) Lungs: no respiratory distress, no retractions, other (poor air movement throughout) Abdomen: soft, non-tender, bowel sounds present Musculoskeletal: normal structure, ROM grossly normal Neurological: no focal deficit, CN II-XII intact (grossly) Skin: no rash/lesions, good turgor, capillary refill <2 seconds Heme/Lymphatic: no unusual bruising or bleeding Psychiatric: normal mood and affect, good judgment and insight, intact recent and remote memory FMR H&P: Results - Labs Result Diagrams: 10/05/18 13:37 10/05/18 20:59 Lab results: WBC 11.9 thou/uL (4.8-10.8) H 10/05/18 13:37 Hgb 14.8 g/dL (12.0-16.0) 10/05/18 13:37 Hct 49.2 % (36.0-47.0) H 10/05/18 13:37 MCV 79.0 fL (78.0-98.0) 10/05/18 13:37 Plt Count 289 thou/uL (130-400) 10/05/18 13:37 Neutrophils % 60.8 % (42.0-75.0) 10/05/18 13:37 Sodium 137 mmol/L (136-145) 10/05/18 13:37 Chloride 83 mmol/L (98-107) L 10/05/18 13:37 Carbon Dioxide 31 mmol/L (22-29) H 10/05/18 13:37 BUN 42 mg/dL (9.8-20.1) H 10/05/18 13:37 Creatinine 1.51 mg/dL (0.6-1.1) H 10/05/18 13:37 Glucose 202 mg/dL (70-105) H 10/05/18 13:37 Calcium 11.2 mg/dL (7.8-10.44) H 10/05/18 13:37 Total Bilirubin 1.2 mg/dL (0.2-1.2) 10/05/18 13:37 AST 13 U/L (5-34) 10/05/18 13:37 ALT Less than 7 U/L (8-55) L 10/05/18 13:37 Alkaline Phosphatase 79 U/L (40-150) 10/05/18 13:37 Serum Total Protein 8.7 g/dL (6.0-8.3) H 10/05/18 13:37 Albumin 4.5 g/dL (3.5-5.0) 10/05/18 13:37 - EKG Interpretation EKG: No acute ST changes - Radiology Interpretation Chest x-ray Status: report reviewed by me (No acute findings) FMR H&P: A/P - Problem List (1) Atypical chest pain Current Visit: Yes Status: Acute Code(s): R07.89 - OTHER CHEST PAIN (2) RADHA (acute kidney injury) Current Visit: Yes Status: Acute Code(s): N17.9 - ACUTE KIDNEY FAILURE, UNSPECIFIED (3) Hypokalemia Current Visit: No Status: Acute Code(s): E87.6 - HYPOKALEMIA (4) CHF (congestive heart failure) Current Visit: No Status: Chronic Code(s): I50.9 - HEART FAILURE, UNSPECIFIED Qualifiers: Heart failure type: diastolic (5) COPD (chronic obstructive pulmonary disease) Current Visit: No Status: Chronic Qualifiers: (6) Diabetes mellitus, type II Current Visit: No Status: Chronic Qualifiers: Diabetes mellitus intermediate card tender insulin use: without alf use Chronic kidney disease stage: stage 3 (moderate) (7) Fibromyalgia Current Visit: No Status: Chronic (8) GERD (gastroesophageal reflux disease) Current Visit: No Status: Chronic Code(s): K21.9 - GASTRO-ESOPHAGEAL REFLUX DISEASE WITHOUT ESOPHAGITIS (9) Hyperlipidemia Current Visit: No Status: Chronic Code(s): E78.5 - HYPERLIPIDEMIA, UNSPECIFIED (10) Hypertension Current Visit: No Status: Chronic Code(s): I10 - ESSENTIAL (PRIMARY) HYPERTENSION (11) Major depressive disorder Current Visit: No Status: Chronic Code(s): F32.9 - MAJOR DEPRESSIVE DISORDER , SINGLE EPISODE, UNSPECIFIED (12) Narcotic dependency, continuous Current Visit: No Status: Chronic Code(s): F11.20 - OPIOID DEPENDENCE, UNCOMPLICATED (13) PVD (peripheral vascular disease) with claudication Current Visit: No Status: Chronic Code(s): I73.9 - PERIPHERAL VASCULAR DISEASE, UNSPECIFIED (14) Pulmonary hypertension Current Visit: No Status: Chronic Code(s): I27.2 - OTHER SECONDARY PULMONARY HYPERTENSION * DO NOT USE * (15) Tobacco abuse Current Visit: No Status: Chronic Code(s): Z72.0 - TOBACCO USE - Plan Atypical chest pain 2/2 ACS vs. GERD vs. MSK - Story not completely typical for ACS-type chest pain but heart score of at least 4 based on risk factors and age alone. EKG on admission negative for any acute ischemic changes but initial troponin slightly elevated. Repeat x2 pending. Per patient, last stress test was [address] Izaguirre and was negative. Has never had a cath. - Card, Dr. Hampton consulted, appreciate recs. - Will make NPO after midnight in anticipation of any cardiac intervention. RADHA on CKD stage III: -Cr elevated at 1.5 & eGFr estimated at 36 which is below her baseline. -Will continue w/ PO hydration for now to prevent volume overload and resume home diuretics as well. -Will continue to monitor w/ QD BMPs. Hypokalemia: - K of 2.6 on admission. Will give 40mEQ PO x2 and resume home dose. Repeat pending for 21:00 and in the AM. - Will continue to monitor & replace PRN. Hypomagnesemia: Mg of 1.4 on presentation. - Will give 2g IV and continue to monitor & replace PRN. HfpEF: - Aware, patient does not appear to be in acute exacerbation and BNP ~400 which is average for her per chart review. CXR showed on cardiomegaly. - Will resume home meds and start on HH diet w/ QD fluid restriction. Chronic hypoxic respiratory failure: - Aware, will continue home O2 requirements with 3L NC. - Will monitor O2 sats closely and titrate PRN. - ABG pending. COPD: - Aware, does not appear to be in acute exacerbation. - Will resume home meds. ILD: - Aware, will resume home meds. DMII, controlled: - A1c of 6.0 on admission. - Will hold metformin 2/2 RADHA and start on mild SSI w/ ACHS accuchecks. CKD stage III: - Aware, see plan above for RADHA on CKD. GERD: - Aware, will resume home meds. Fibromyalgia: - Aware, will resume home meds. HTN: - Aware, will resume home meds. HLD: - Aware, will resume home meds. PVD: - Aware, will resume home meds. tobacco use: - Aware, ~50 PY history per patient. No nicotine patch until ACS ruled out. - Will branch credit counselor on cessation. major depressive disorder: - Aware, will resume home meds. h/o urinary retention: - Aware, will get strict I/Os and continue to monitor closely. Dispo: Will admit to tele obs for close observation overnight & make NPO at midnight pending cards recs for further workup in the AM. GI PPx: protonix DVT PPx: lovenox Abx: none IVFs: SL FMR H&P: Upper Level - Pertinent history 53F with history of a flutter, DM2, diastolic HF presents from PCP office for atypical chest pain. These pain was described as lasting 2 seconds at a time, started several days ago, exacerbated by stretching arm above head, occurs maybe 1-2 times a day, associated with dizziness. She specifically denies diaphoresis, nausea, pain radiating into arms. - Pertinent findings Temp 97.7 Pulse 108 Resp 20 O2 91@ 3L by NC 93/53 Gen: Somnolent appear, unclear if at baseline. Patient was aware and apologized for that. Otherwise grossly alert, oriented, appear older then stated age, appropriately nourished HEENT: Normocephalic, grossly intact hearing and vision, moist appearing mucosal membrane. Trachea midline CV: Irregular rythm. Occasional pauses. No obvious m/g/r Resp: CTA bilat, no retraction or labored breathing. GI: Soft, normoactive, not tender to palpation Ext: No edema noted. - Plan Date/Time: 10/05/18 1421 I, [Hermilo Wagner], have evaluated this patient and agree with findings/plan as outlined by direct marketing intern resident. Pertinent changes/additions are listed here. Patient here for work up of atypical chest pain. In addition to her chronic issues she was noted to have active issues. 1. Atypical chest pain - Apparently she been to cardiology office and had normal stress 6 month ago. Will request record and plan further testing accordingly. Will obtain trops - Chest xray found no acute process, making infectious, tension pneumo less likely. There is mild leukcytosis without left shift. May consider procal to assist but there otherwise is no clinical finding for pneumonia - She is noted to have tachycardia. Consider PE. She does not have LE swelling. Consider starting with doppler leg and then moving to CTA. - Prior history of aflutter. Admit for telemetry monitoring. 2. Leukocytosis - See above. 3. Elevated BNP - May be component of chest discomfort. - Will start on bumex. CXR read normal but still have some suspicion of congestion on xray. Fluid restrict. 4. Somnolence - Will obtain abg, uds. Consider she may also have sleep apnea that needs further titration. Patient indicate she always wear cpap at night. 5. Low magnesium - Will replace. 6. Hypokalemia - Will replace. Repeat BMP today. May also play part into problem 1. 7. RADHA - Above baseline of Cr 1. Unfortunately, she does elevated BNP, mildly above baseline Addendum - Attending - Attending Attestation Date/Time: 10/05/18 2271 I personally evaluated the patient and discussed the management with Dr. Doherty I agree with the History, Examination, Assessment and Plan documented above with any addition or exceptions noted below- 53 yo female with h/o steroid/O2 dependent COPD, type 2 DM, PVD, chronic pain, Aflutter s/p ablation presents as admit from clinic after being seen for hospital follow-up and endorsing some episodes of left sided chest pain over the last 2 days. States that the pain has occurred with exertion, lasts very short duration, and has had no assoc N/V or diaphoresis. Has had some radiation to left arm. No pain currently. Does endorse some increased SOB but also attributes this to deconditioning due to recent hospitalizations. PMH/PSH/Meds/SH reviewed and agree with residents documentation. Afebrile VSS. Exam repeated by me and agree with residents findings. Labs: trop= 0.128: normal cbc. EKG- NSR, no ST changes. Cr= 1.52. A/P : 1) Chest pain- continue to trend troponins; pt had stress test 6 months ago per her. Will discuss with cardiology. 2)A-flutter- s/p ablation 2 weeks ago- no evidence of recurrence: continue to monitor on tele. 3) DM- continue home meds and monitor accuchecks. 4) CHFpEF- continue home diurectics. 5) Hypokalemia - continue replacement.
[2018-10-05 14:29] LABS: Potassium 2.6 mmol/L (3.5-5.1)
[2018-10-05 14:43] LABS: CKMB 2.6 ng/mL (0-6.6)
[2018-10-05] MEDS ORDERED: Senokot S 8.6-50 MG TAB PO PRN (16:04)
[2018-10-05] MEDS ORDERED: PROVENTIL INHALER 6.7 G (200 INHALATIONS) INH PRN (16:04)
[2018-10-05] MEDS ORDERED: Albuterol Sulfate 1.25 MG/3 ML NEB NEB PRN (16:04)
[2018-10-05] MEDS: HYDROcodone/Acetaminophen 10/325 mg Tablet PO PRN ×2 (16:25→22:38)
[2018-10-05] MEDS: Potassium Chloride 20 MEQ TAB PO SCH ×3 (16:25→20:57)
[2018-10-05] MEDS ORDERED: HumaLOG 300 UNITS/3 ML VIAL SC PRN ×2 (16:43)
[2018-10-05] MEDS ORDERED: Dextrose 50% Abboject 50 ML SYRINGE SLOW IVP PRN (16:43)
[2018-10-05] MEDS ORDERED: Dextrose 5% in Water 1,000 ML IV PRN (16:43)
[2018-10-05 16:49] LABS: Troponin I 0.173 ng/mL (< 0.028)
[2018-10-05] MEDS ORDERED: Magnesium 2 GM/50 ML 2 GM in Premix Bag 1 BAG IVPB SCH (17:00)
[2018-10-05] MEDS ORDERED: metFORMIN 500 MG TAB PO SCH (17:00)
[2018-10-05 17:20] LABS: Actual Bicarbonate (HCO3a) 38.6 mEq/L (22-28); Analyzer IN Cardio OR; Base Excess (BEa) 12.7 mEq/L (-2.0 to +3.0); CO2 Tension 54.4 mmHg (35.0-45.0); Calcium, Ionized 1.12 mmol/L (1.12-1.30); Carboxyhemoglobin (COHb) 7.3 gm% (0.0-3.0); Hemoglobin (Hb) 13.5 g/dL (12.0-16.0); O2 Tension (PaO2) 61.8 mmHg (80.0-100.0); Potassium - ABG Lab 2.85 mmol/L (3.70-5.30); pH, Arterial 7.47 (7.35-7.45)
[2018-10-05 17:22] LABS: Puncture Site LB
[2018-10-05 18:05] LABS: Amphetamine Not Detected (NotDetected); Barbiturates Screen Not Detected (NotDetected); Benzodiazepine Screen Not Detected (NotDetected); Cocaine Metabolite Screen Not Detected (NotDetected); Medtox Control Line Valid? VALID (VALID); Medtox Reader # READER 4; Methadone Not Detected (NotDetected); Methamphetamine Not Detected (NotDetected); Opiate Screen Detected (NotDetected); Oxycodone Screen Not Detected (NotDetected); Phencyclidine (PCP) Not Detected (NotDetected); THC/Cannabinoid Screen Not Detected (NotDetected); Tricyclic Screen Not Detected (NotDetected)
[2018-10-05 19:58] LABS: Troponin I 0.225 ng/mL (< 0.028)
[2018-10-05] MEDS: DULoxetine 30 MG CAP PO SCH (20:57)
[2018-10-05] MEDS: Gabapentin 300 MG CAP PO SCH (20:57)
[2018-10-05] MEDS: Bumetanide 1 MG TAB PO SCH (20:57)
[2018-10-05] MEDS ORDERED: Enoxaparin Sodium 40 MG/0.4 ML SYRINGE SC SCH (21:00)
[2018-10-05 21:39] LABS: Anion Gap 19 mmol/L (10-20); BUN (Urea Nitrogen) 52 mg/dL (9.8-20.1); Calc. Creatinine Clearance 43 mL/min (70-130); Calcium 10.3 mg/dL (7.8-10.44); Carbon Dioxide 35 mmol/L (22-29); Chloride 84 mmol/L (98-107); Estimated GFR-MDRD 29; Glucose 118 mg/dL (70-105); Potassium 3.3 mmol/L (3.5-5.1); Sodium 135 mmol/L (136-145)
[2018-10-05 23:49] LABS: Troponin I 0.191 ng/mL (< 0.028)
[2018-10-06] MEDS: HYDROcodone/Acetaminophen 10/325 mg Tablet PO PRN ×2 (05:44→13:33)
--- NOTE | 2018-10-06 06:24 | CON ---
DATE OF CONSULTATION: Please refer to the notes dictated by the Family Practice resident. We have seen the patient and also discussed her case and I would agree with her assessment and plan. HISTORY OF PRESENT ILLNESS: This is a very unfortunate 53-year-old female, who was recently in the hospital. She underwent ablation for wide-complex tachycardia, which is most likely SVT. She had a right bundle-branch block. She was found to have congestive heart failure. She has a history of COPD and felt to have possible pulmonary sarcoidosis. She has had hypoxemia. She was seen in the Family Practice [facility] today and was found to have O2 saturation in the 70% range and also complained of some chest discomfort and was admitted to the hospital. Since that time, her O2 saturations have improved. She had no further discomfort. She did have a recent stress test in the office within the last 6 months, which showed no evidence of ischemia. She does have hypertension, type 2 diabetes. If she continues to have symptoms of chest pain, she may eventually have to undergo cardiac catheterization as a definitive tool to rule out evidence of underlying coronary artery disease. At this time, she is relatively stable and most likely her symptoms are from her chest discomfort may be due to her pulmonary problems with pulmonary hypertension. She also has some slight indeterminate cardiac enzymes, which may be due to demand ischemia, certainly if she has O2 saturations less than 70%, and she is apparently is at home, has been also having problems. She is on oxygen 21/03. PAST MEDICAL HISTORY: Please refer to the notes dictated by the Family Practice Resident. SOCIAL HISTORY: Please refer to the notes dictated by the Family Practice Resident. FAMILY HISTORY: Please refer to the notes dictated by the Family Practice Resident. ALLERGIES: PLEASE REFER TO THE NOTES DICTATED BY THE FAMILY PRACTICE RESIDENT. MEDICATIONS: Please refer to the notes dictated by the Family Practice Resident. REVIEW OF SYSTEMS: Please refer to the notes dictated by the Family Practice Resident. PHYSICAL EXAMINATION: GENERAL: Reveals a middle-aged female, who is in no acute distress at this time. She is alert. She is oriented. VITAL SIGNS: Blood pressure 93/53. Heart rates in the 80s to 100s and shows a sinus rhythm with occasional PACs. Respiratory rate 16 to 20. O2 saturation is 89% to 91%. She is afebrile. HEENT: Shows head to be normocephalic and atraumatic. Carotid pulses are present. I did not hear any bruits. She has decreased breath sounds with some bilateral crackles and rales. These are not severe, but there are mild crackles. I did not hear any significant wheezes at this time. CARDIOVASCULAR: Reveals a regular rate and rhythm. She has a slight systolic murmur at the lower sternal border. ABDOMEN: Soft, nontender. Positive bowel sounds are present. EXTREMITIES: No significant clubbing or cyanosis. She does have some discoloration in the feet, more purple due to venous engorgement. Pedal pulses are difficult to palpate. NEUROLOGICAL: She appears to be intact. SKIN: Warm and dry. IMPRESSION: 1. Chronic obstructive pulmonary disease exacerbation with possible underlying pulmonary pathology, which may be due to sarcoidosis. I would suggest that she will be seen by the senior product designer for possible therapies. Eventually, she may need to undergo a lung transplant if she becomes a candidate in the future. She continues to smoke, and despite, she is being told multiple times to stop smoking, she has peripheral vascular disease. She has had stent placement, but unfortunately she continues to smoke. 2. History of arrhythmias, for which she has been seen and treated by ablation. We will continue to follow this at this time. She appears to be stable. 3. History of abnormal cardiac enzymes, which are indeterminate, but with a negative stress test within the last 6 months. She has some nonspecific ST-segment changes, which may be due to her pulmonary hypertension and elevated right-sided pressures, although the EKG does indicate she may have some right ventricular hypertrophy. At this time, we will continue to follow her with you, but further care of the patient will be by Dr. Izaguirre when he sees the patient tomorrow. She does have unfortunately a multitude of problems, which include diabetes also as well as her chronic obstructive pulmonary disease and fibromyalgia. Job ID: [id number]
--- NOTE | 2018-10-06 06:56 | PDOC.FM ---
- Subjective Subjective: Ms. Valdovinos is resting comfortably in bed, she denies chest pain or increased SOB. She reports to be about at baseline. Does not desire a stress or to see cardiology. - Objective Vital Signs & Weight: Vital Signs (12 hours) Temp Pulse Resp BP BP BP Pulse Ox 10/06/18 04:03 98.9 F 105 H 14 105/54 L 93 L 10/06/18 00:11 100 16 89 L 10/06/18 00:00 97.7 F 95 17 97/53 L 94 L 10/05/18 22:41 94/55 L 95 10/05/18 20:00 97.4 F L 104 H 19 97/53 L 94 L Weight Weight 78.199 kg I&O: 10/04/18 10/05/18 10/06/18 06:59 06:59 06:59 Intake Total 1490 Output Total 800 Balance 690 Result Diagrams: 10/05/18 13:37 10/05/18 20:59 Phys Exam - Physical Examination Constitutional: NAD HEENT: moist MMs Neck: no JVD Respiratory: clear to auscultation bilateral Cardiovascular: no significant murmur Gastrointestinal: soft, non-tender, no distention Musculoskeletal: no edema Neurological: moves all 4 limbs Psychiatric: normal affect Skin: no rash Dx/Plan (1) RADHA (acute kidney injury) Code(s): N17.9 - ACUTE KIDNEY FAILURE, UNSPECIFIED Status: Acute (2) Atypical chest pain Code(s): R07.89 - OTHER CHEST PAIN Status: Acute (3) Hypokalemia Code(s): E87.6 - HYPOKALEMIA Status: Acute (4) CHF (congestive heart failure) Code(s): I50.9 - HEART FAILURE, UNSPECIFIED Status: Chronic Qualifiers: Heart failure type: diastolic (5) COPD (chronic obstructive pulmonary disease) Status: Chronic Qualifiers: (6) Diabetes mellitus, type II Status: Chronic Qualifiers: Diabetes mellitus machine long goods helper insulin use: without machine long goods helper use Chronic kidney disease stage: stage 3 (moderate) (7) Fibromyalgia Status: Chronic (8) GERD (gastroesophageal reflux disease) Code(s): K21.9 - GASTRO-ESOPHAGEAL REFLUX DISEASE WITHOUT ESOPHAGITIS Status: Chronic (9) Hyperlipidemia Code(s): E78.5 - HYPERLIPIDEMIA, UNSPECIFIED Status: Chronic (10) Hypertension Code(s): I10 - ESSENTIAL (PRIMARY) HYPERTENSION Status: Chronic (11) Nicotine dependence Code(s): F17.200 - NICOTINE DEPENDENCE, UNSPECIFIED, UNCOMPLICATED Status: Chronic (12) Tobacco abuse Code(s): Z72.0 - TOBACCO USE Status: Chronic - Plan Plan: Atypical chest pain 2/2 ACS vs. GERD vs. MSK -Atypical story, indeterminate trops, EKG wnl on admission - reported negative stress [address] Izaguirre - Cardiology, Dr. Hampton consulted, recommend no intervention at this time RADHA on CKD stage III: -Cr elevated at 1.5 & eGFr estimated at 36 which is below her baseline. -PO hydration for now to prevent volume overload and resume home diuretics as well. -monitor w/ QD BMPs. Hypokalemia: - K of 2.6 on admission. s/p 40mEQ PO x2 - resume home dose. - Will continue to monitor & replace PRN. Hypomagnesemia: Mg of 1.4 on presentation. - s/p 2g IV - continue to monitor & replace PRN. HfpEF: - Aware, patient does not appear to be in acute exacerbation and BNP ~400 which is average for her per chart review. CXR showed on cardiomegaly. - resume home meds - HH diet w/ QD fluid restriction. Chronic hypoxic respiratory failure: - Aware, will continue home O2 requirements with 3L NC. - Will monitor O2 sats closely and titrate PRN. - ABG near baseline . COPD: - Aware, does not appear to be in acute exacerbation. - Will resume home meds. ILD: - Aware, will resume home meds. DMII, controlled: - A1c of 6.0 on admission. - Will hold metformin 2/2 RADHA and start on mild SSI w/ ACHS accuchecks. CKD stage III: - Aware, see plan above for RADHA on CKD. GERD: - Aware, will resume home meds. Fibromyalgia: - Aware, will resume home meds. HTN: - Aware, will resume home meds. HLD: - Aware, will resume home meds. PVD: - Aware, will resume home meds. tobacco use: - Aware, ~50 PY history per patient. No nicotine patch until ACS ruled out. - Will recreation counselor on cessation. major depressive disorder: - Aware, will resume home meds. h/o urinary retention: - Aware, will get strict I/Os and continue to monitor closely. Dispo: DC today. GI PPx: protonix DVT PPx: lovenox Code: DNI
[2018-10-06] MEDS: Potassium Chloride 20 MEQ TAB PO SCH (08:22)
[2018-10-06] MEDS: DULoxetine 30 MG CAP PO SCH (08:23)
[2018-10-06] MEDS: Gabapentin 300 MG CAP PO SCH ×2 (08:23→15:35)
[2018-10-06] MEDS: Bumetanide 1 MG TAB PO SCH (08:23)
--- NOTE | 2018-10-06 08:34 | CON ---
DATE OF CONSULTATION: 10/05/2018 CARDIOLOGY ATTENDING: Marbella Hampton MD HISTORY OF PRESENT ILLNESS: This is a 53-year-old female with a past medical history of chronic hypoxic respiratory failure, requiring 3 L of O2 at baseline, likely due to sarcoidosis, COPD, and heart failure with preserved ejection fraction, who presents as a direct admit from [facility] for [id number] hypoxia and atypical chest pain. She described in the clinic episodes of hypoxia down to 77%, worse with walking, improved with resting mid upper 80s. She usually is able to maintain upper 80s to low 90s, O2 saturation on 3 L which has been her baseline that has been requiring an additional amount of oxygen, off and on since her most recent hospital discharge. Of note, she was recently discharged after hospitalization for atrial flutter, status post ablation. Prior to that, earlier in August, she was admitted for sepsis secondary to UTIs. In regard to her chest pain, she states that she has had 3 episodes since her last discharge, which was mid to early August. She describes the chest pain as left sided and tightness with exertion relieved with rest with some radiation down her left arm, although the radiation is more like numbness. Denies nausea, vomiting, diaphoresis, shortness of breath associated with this chest pain. However, separately has had worsening shortness of breath with associated hypoxia, but she does not have these with the chest pain. She endorses lightheadedness after standing quickly or walking across the house. She also endorses hypotension at home. She has not been on any blood pressure medications for over a year. Most recently at home, in August, she had a blood pressure 70/40. She had an echo done in July 2018, that showed an ejection fraction of 55% to 60%, diastolic dysfunction, mild mitral regurgitation, moderate aortic regurgitation, mild pulmonic regurgitation, severe tricuspid regurgitation, and she had a stress test in April 2018, that was normal with an ejection fraction of 62%. Of note, she is a chronic long-standing smoker over 50-pack year history, currently smokes a pack per day and also history of peripheral vascular disease, requiring stents in the past. PAST MEDICAL HISTORY: 1. Sarcoidosis. 2. COPD. 3. CHRIS. 4. Heart failure with preserved ejection fraction. 5. History of atrial flutter, status post ablation. 6. PAD, status post stent placement. 7. Type 2 diabetes. 8. History of hypertension, currently hypotensive, not required medications over a year. 9. Questionable cirrhosis from GI doctor. 10. Central spinal stenosis. 11. Anemia, NOS. 12. Chronic pain syndrome. 13. Fibromyalgia. 14. Osteoarthritis of her knees bilaterally. PAST SURGICAL HISTORY: Appendectomy, cholecystectomy, lung biopsy, tonsillectomy and adenoidectomy, bilateral oophorectomy, carpal tunnel release, cataract removal, bilateral common iliac stenting, and pressure equalization tubes. ALLERGIES: PENICILLIN. SOCIAL HISTORY: She smokes a pack per day. She smoked on and off since she is 14 about a 40-pack year history. She used to be a heavy alcohol drinker about 12-pack per day, but stopped when she was 34 years old. Denies drug use. FAMILY HISTORY: CVA in her mom, diabetes in her mom, hypertension in her mom. Family history of alcoholism. COPD in her mother. Lung cancer in her mother. Alcohol dependence in her father. REVIEW OF SYSTEMS: GENERAL: Denies fever, chills. RESPIRATORY: Endorses worsening hypoxia and shortness of breath, but denies cough, sputum production, congestion. CARDIOVASCULAR: Endorses intermittent chest pain, intermittent palpitations, and endorses [place]. Denies edema. Denies PND. Denies orthopnea. ABDOMEN: Denies nausea, vomiting, or diarrhea. Endorses some constipation. PHYSICAL EXAMINATION: GENERAL: No apparent distress. VITAL SIGNS: Temperature 97.7, pulse 108, respiratory rate 20, O2 saturation 91% on 3 L, and blood pressure 93/53. LUNGS: Crackles throughout all lung mayer. No wheezing. CARDIOVASCULAR: Tachycardic. Holosystolic murmur. No JVD. ABDOMEN: Soft. Mildly distended. Mildly tender to palpation in the right upper quadrant. EXTREMITIES: 1+ pulses bilaterally lower extremities. No edema. LABORATORY DATA: Troponin 0.128 and 0.173. BNP 42. TSH 1.1. Chemistry; sodium 137, potassium 2.6, chloride 83, bicarbonate 31, BUN 42, creatinine 1.5, glucose 202. Baseline creatinine appears to be about 0.9. Calcium 11.2 and magnesium 1.3. DIAGNOSTIC DATA: EKG in the clinic showed right axis deviation, possible left posterior fascicular block, tachycardic at 113. EKGs here in the hospital shows sinus tachycardia, rate of about 115, possible right ventricular hypertrophy, PVCs, no acute ST elevations or depressions. Echo in July 2018 showed an ejection fraction of 55% to 60%, diastolic dysfunction, mild mitral regurgitation, moderate aortic regurgitation, mild pulmonic regurgitation, and severe tricuspid regurgitation. Stress test in April 2018, was within normal limits with ejection fraction of 62%. The patient has a HEART score of 5. The patient had a chest x-ray done today showing enlarged heart, chip pulmonary edema. ASSESSMENT AND PLAN: This is a 53-year-old female with chronic hypoxic respiratory failure, requiring 3 L of oxygen at home secondary to chronic obstructive pulmonary disease, sarcoidosis, and diastolic heart failure, admitted for xacbu-bf-hiokont hypoxic respiratory failure and atypical chest pain. 1. Ltgfi-bs-dacwtmz hypoxic respiratory failure in light of the patient's recent stress test in April and chronic pulmonary conditions seems to be more likely that her acute worsening of hypoxia and shortness of breath is more related to her underlying lung disease and is suggestive of pulmonary hypertension. We would recommend a Pulmonology consult. In regard to the atypical chest pain, and the fact that she does have a HEART score of 5, which is due to her risk factors as well as indeterminate troponins. We like think the indeterminate troponins are the result of demand ischemia due to the patient's uzggu-tl-bhdgtby hypoxia and hypotension. The patient currently smokes a pack per day. She was counseled on smoking cessation. She recently had an echo and stress test, so despite the fact that her BNP is bumped and her troponins were indeterminate, would not recommend repeating the stress or echo at this time as stated above, likely think her shortness of breath and hypoxia is more related to her lung pathology. Once again, we have recommend Pulmonary consult as the olcuu-km-ingbjxn hypoxia seems to be more related to her sarcoidosis. The patient did not endorse any cough with increased sputum production, she is not wheezing on exam, does not appear to be chronic obstructive pulmonary disease exacerbation, more likely related to pulmonary hypertension. 2. Hypokalemia of 2.6. Recommend replacement. 3. Hypomagnesemia of 1.3. Recommend replacement. 4. Smoking history. Recommend cessation. Counseled the patient, the patient smoking pack year history of 40. This patient was seen and evaluated with Dr. Hampton, who aggress with the assessment and plan. Job ID: [id number]
[2018-10-06] MEDS ORDERED: Aspirin 81 mg Enteric Coated Tablet PO SCH (09:00)
[2018-10-06] MEDS ORDERED: Magnesium Oxide 400 MG TAB PO SCH (09:00)
[2018-10-06] MEDS ORDERED: predniSONE 5 MG TAB PO SCH (09:00)
[2018-10-06] MEDS ORDERED: Digoxin 0.125 MG TAB PO SCH (09:00)
--- NOTE | 2018-10-06 09:05 | EKG ---
Test Reason : Blood Pressure : / mmHG Vent. Rate : 115 BPM Atrial Rate : 115 BPM P-R Int : 154 ms QRS Dur : 116 ms QT Int : 372 ms P-R-T Axes : 059 163 011 degrees QTc Int : 514 ms Sinus tachycardia with occasional Premature ventricular complexes Possible Left atrial enlargement Possible Right ventricular hypertrophy Inferior infarct (cited on or before 14-SEP-2018) Cannot rule out Anteroseptal infarct (cited on or before 14-SEP-2018) Incomplete RBBB Abnormal ECG When compared with ECG of 15-SEP-2018 07:43, Significant changes have occurred Confirmed by DR. Rayna MARINELLI ([id number]) on 10/06/2018 9:05:07 AM Referred By: DINORA Confirmed By:DR. Rayna MARINELLI
--- NOTE | 2018-10-06 11:58 | PRG ---
DATE OF SERVICE: 10/06/2018 Ms. Valdovinos is a 53-year-old white female patient, who was admitted with some chest discomfort. She states, however, she has had the same chest discomfort for about the last 6 months when she had a negative stress test. She, in fact, thinks it is a little bit better. I believe she could likely be worked up as an outpatient, but we will check with Cardiology as per their recommendations. Job ID: [id number]
[2018-10-06 16:31] VITALS: BP 110/56; TEMP 98.9
--- NOTE | 2018-10-07 11:18 | DIS ---
DATE OF ADMISSION: 10/05/2018 DATE OF DISCHARGE: 10/06/2018 ADMITTING ATTENDING: Dr. Lucrecia Chen. DISCHARGE ATTENDING: Dr. Alexandrea Magallanes. RESIDENT: Dr. Varghese Sky. PROCEDURES: None. IMAGING: Chest x-ray, no acute process. CONSULTATIONS: Cardiology, Marbella Hampton MD, Baltazar Izaguirre MD PRIMARY DIAGNOSIS: Atypical chest pain. SECONDARY DIAGNOSES: 1. Chronic kidney disease, stage 3. 2. Hypokalemia. 3. Hypomagnesemia. 4. Heart failure with preserved ejection fraction. 5. Chronic hypoxic respiratory failure. 6. Chronic obstructive pulmonary disease. 7. Interstitial lung disease. 8. Diabetes mellitus type 2. 9. Gastroesophageal reflux disease. 10. Fibromyalgia. 11. Hypertension. 12. Hyperlipidemia. 13. Peripheral vascular disease. 14. Tobacco abuse. 15. Major depressive disorder. 16. History of urinary retention. DISCHARGE MEDICATIONS: 1. Aspirin 81 mg p.o. daily. 2. ProAir 2 puffs inhaled t.i.d. p.r.n. 3. Spiriva 18 mcg inhaled daily. 4. Victoza 1.2 mg SC daily. 5. Metformin 1000 mg p.o. b.i.d. 6. Cymbalta 30 mg p.o. b.i.d. 7. Magnesium 400 mg p.o. daily. 8. K-Tab 40 mEq p.o. b.i.d. 9. Gabapentin 2 tabs p.o. t.i.d. 10. Prednisone 5 mg p.o. daily. 11. Senokot 2 tabs p.o. p.o. b.i.d. p.r.n. 12. Protonix 40 mg p.o. daily. 13. Albuterol 1.25 mg nebulized q.4h p.r.n. 14. [place] 10/325 one tab p.o. q.i.d. p.r.n. 15. Bumex 4 mg p.o. b.i.d. 16. Digoxin 0.125 mg p.o. daily. DISCONTINUED MEDICATIONS: None. HISTORY OF PRESENT ILLNESS/HOSPITAL COURSE: Ms. Valdovinos is a 53-year-old female with a past medical history significant for COPD on 3 L O2 at home, diabetes, hypertension, peripheral vascular disease and significant continued tobacco abuse, sent from clinic as a direct admit complaining of chest pain over the last 2 days. The patient was recently discharged from hospitalization on 09/15/2018 after an atrial flutter with a cardiac ablation for that. The patient reports that chest pain is similar to pain she has had in the past, but has improved. When she had the similar chest pain in the past, which was 6 months ago she had a stress test in an outpatient setting with Dr. Izaguirre that was negative. During her hospitalization, she reported minimal baseline shortness of breath. Denied nausea or vomiting or continued chest pain. She did endorse some lightheadedness, but otherwise her vitals signs remained stable. Troponins were negative. EKG was within normal limits at baseline for her. Cardiology was consulted and had no interventions recommended at this time. The patient was deemed stable for discharge. DISPOSITION: Stable. DISCHARGE INSTRUCTIONS: Location: Home. Diet: Heart healthy, low-sodium. Activity: As tolerated. Followup: With PCP, Dr. Della Kent in 3 days. Job ID: [id number]
== END 2018-10-06 18:15 | disposition home or self-care (01) ==
LOC: 2SW 12:24
PROVIDERS: ADMIT Family Medicine; ATTEND Family Medicine
DX: R07.89 Other chest pain (principal); I13.2 Hypertensive heart and chronic kidney disease with heart failure and with stage 5 chronic kidney disease, or end stage renal disease; E11.22 Type 2 diabetes mellitus with diabetic chronic kidney disease; N18.3 Chronic kidney disease, stage 3 (moderate); I50.30 Unspecified diastolic (congestive) heart failure; N17.9 Acute kidney failure, unspecified; E87.6 Hypokalemia; E83.42 Hypomagnesemia; K21.9 Gastro-esophageal reflux disease without esophagitis; M79.7 Fibromyalgia; E78.5 Hyperlipidemia, unspecified; E11.51 Type 2 diabetes mellitus with diabetic peripheral angiopathy without gangrene; F17.210 Nicotine dependence, cigarettes, uncomplicated; F32.9 Major depressive disorder, single episode, unspecified; F11.20 Opioid dependence, uncomplicated; I48.92 Unspecified atrial flutter; G47.33 Obstructive sleep apnea (adult) (pediatric); D86.9 Sarcoidosis, unspecified; G89.4 Chronic pain syndrome; M17.0 Bilateral primary osteoarthritis of knee; J96.21 Acute and chronic respiratory failure with hypoxia; J44.1 Chronic obstructive pulmonary disease with (acute) exacerbation; Z79.52 Long term (current) use of systemic steroids; Z79.84 Long term (current) use of oral hypoglycemic drugs; Z79.899 Other long term (current) drug therapy; Z88.0 Allergy status to penicillin; Z88.8 Allergy status to other drugs, medicaments and biological substances; Z91.048 Other nonmedicinal substance allergy status; Z95.1 Presence of aortocoronary bypass graft; Z99.81 Dependence on supplemental oxygen
CPT/HCPCS: 36415; 36416; 71045; 80053; 80306; 82553; 82805; 83036; 83735; 83880; 84100; 84443; 84484; 85025; 93005; 93010; 94640; 96365; 96372; G0378; J1650; J3475; J7512; J7620

== ENCOUNTER 2018-10-19 16:38 | Inpatient (IN) | payer OTHER ==
--- NOTE | 2018-10-19 17:11 | RAD ---
FRONTAL VIEW CHEST: Date: 10/19/18 COMPARISON: 10/05/18. INDICATION: Emergency exam, hypoxia. FINDINGS: There is enlargement of the cardiac silhouette with diffuse interstitial opacity bilaterally. Patchy right perihilar opacity is also seen. No significant effusion or discrete pneumothorax. There is vasc ular calcification. IMPRESSION: Findings which favor fluid overload from decompensated CHF. Recommend clinical correlation, as well a s imaging follow-up to confirm resolution. POS: IAM
[2018-10-19 17:15] LABS: #Basophils 0.1 thou/uL (0.0-0.2); #Eosinphils 0.1 thou/uL (0.0-0.7); #Lymphocytes 2.5 thou/uL (1.20-3.40); #Monocytes 0.4 thou/uL (0.11-0.59); #Neutrophils 8.1 thou/uL (1.40-6.50); %Basophils 1.1 % (0.0-1.0); %Eosinophils 0.9 % (0.0-10.0); %Lymphocytes 22.2 % (21.0-51.0); %Monocytes 3.8 % (0.0-10.0); Hemoglobin 13.3 g/dL (12.0-16.0); Mean Corpuscular HGB CONC 29.5 g/dL (32.0-36.0); Mean Corpuscular Hemoglobin 22.8 pg (27.0-31.0); Mean Corpuscular Volume 77.5 fL (78.0-98.0); Mean Platelet Volume 11.2 fL (7.4-10.4); Platelet Count 287 thou/uL (130-400); RBC Distribution Width 20.7 % (11.5-14.5); Red Blood Cell (RBC) Count 5.81 mill/uL (4.20-5.40); White Blood Cell (WBC) Count 11.2 thou/uL (4.8-10.8)
[2018-10-19] MEDS ORDERED: methylPREDNISolone Sod Succ/PF 125 MG/2 ML VIAL ONE (17:23)
[2018-10-19 17:28] LABS: Anisocytosis MODERATE=16-30 cells (100X) (0-5/hpf); Hypochromia SLIGHT = 6-15 cells (100X) (0-5/hpf); MDiff Complete? YES; Microcytosis SLIGHT = 6-15 cells (100X) (0-5/hpf); Ovalocytes SLIGHT = 2-5 cells (100X) (0-1/hpf); Platelet Morphology Comment Appears Adequate; Poikilocytosis SLIGHT = 6-15 cells (100X) (0-5/hpf); Polychromasia SLIGHT = 2-3 cells (100X) (0-2/hpf); Spherocytes SLIGHT = 1-5 cells (100X) (None Seen); Stomatocytes SLIGHT = 2-5 cells (100X) (0-1/hpf); Target Cells SLIGHT = 2-5 cells (100X) (0-1/hpf)
[2018-10-19] MEDS ORDERED: Aspirin Chewable 81 MG TAB ONE (17:34)
[2018-10-19] MEDS ORDERED: Furosemide 40 MG/4 ML VIAL ONE (17:34)
[2018-10-19 17:37] LABS: ALT (SGPT) 9 U/L (8-55); AST (SGOT) 16 U/L (5-34); Albumin 4.4 g/dL (3.5-5.0); Alkaline Phosphatase 67 U/L (40-150); Anion Gap 24 mmol/L (10-20); BUN (Urea Nitrogen) 75 mg/dL (9.8-20.1); Bilirubin, Total 2.6 mg/dL (0.2-1.2); Calc. Creatinine Clearance 0 mL/min (70-130); Calcium 9.2 mg/dL (7.8-10.44); Carbon Dioxide 35 mmol/L (22-29); Chloride 76 mmol/L (98-107); Estimated GFR-MDRD 25; Globulin 3.5 g/dL (2.4-3.5); Glucose 135 mg/dL (70-105); Potassium 3.2 mmol/L (3.5-5.1); Protein, Total 7.9 g/dL (6.0-8.3); Sodium 132 mmol/L (136-145)
--- NOTE | 2018-10-19 17:58 | PDOC.FPRHP ---
- History of Present Illness Chief Complaint: hypoxia and palpitations History of Present Illness: The patient is a 53YOF w/ PMH significant for COPD on 3L of O2 at home, HFpEF, and DMII who presented to the ED from her PCP's office for evaluation for shortness of breath with associated hypoxia and palpitations that she reports have been ongoing for the last 1.5 weeks. The patient stated that about a week and a half ago she noticed that her O2 sats were dropping to around 83-85 at home even on her 3L of oxygen and she began to have increased SOB w/ exertion. She normally does about 1-2 breathing treatments/day even that she is supposed to do more but also noted no improvement with increasing her home breathing treatments to 3-4/day. She denies any LE edema but did report some episodic, nonradiating, left-sided chest pain that also occurs w/ exertion but lasts only a few seconds. She reports some associated nausea & a cough productive of small amounts of green/yellow sputum as well. She denies any fever or chills or recent sick contacts but was recently hospitalized at the beginning of this month for observation overnight for chest pain. ED Course: 2g cefepime, 40 Iv lasix, 250mL/hr of NS, 125 solumedrol, Duoneb x1, 324mg ASA - Allergies/Adverse Reactions Allergies Allergy/AdvReac Type Severity Reaction Status Date / Time adhesive Allergy Verified 10/05/18 12:53 Penicillins Allergy Verified 10/05/18 12:53 pregabalin [From Lyrica] Allergy Verified 10/05/18 12:53 - Home Medications Medication Instructions Recorded Confirmed Type Aspirin [Ecotrin Low Strength] 81 mg PO DAILY #0 tab 02/12/16 10/19/18 Rx Albuterol Sulfate [Proair HFA] 2 puff INH TID PRN 05/10/16 10/19/18 History DULoxetine HCl [Cymbalta] 30 mg PO BID 11/11/16 10/19/18 History Liraglutide [Victoza 2-Lion] 1.2 mg SC DAILY 11/11/16 10/19/18 History Tiotropium [Spiriva Handihaler] 18 mcg INH DAILY 11/11/16 10/19/18 History metFORMIN HCl 1,000 mg PO BID-WM 11/11/16 10/19/18 History Magnesium Oxide [Magnesium] 400 mg PO DAILY 12/18/16 10/19/18 History Potassium Chloride [K-Tab ER] 40 meq PO BID 01/06/17 10/19/18 History Gabapentin 2 tab PO TID 07/25/17 10/19/18 History predniSONE [Prednisone] 5 mg PO DAILY 09/11/18 10/19/18 History Sennosides/Docusate Sodium 2 tab PO BID PRN #60 tab 09/15/18 10/19/18 Rx [Senokot S] Albuterol Sulfate [Albuterol 1.25 mg NEB Q4HR PRN 10/05/18 10/19/18 History Sulfate Neb] Bumetanide [Bumex] 4 mg PO BID 10/05/18 10/19/18 History HYDROcodone Bit/APAP 10/325 [[place]] 1 tab PO QID PRN 10/05/18 10/19/18 History Pantoprazole [Protonix] 40 mg PO DAILY 10/05/18 10/19/18 History Digoxin [Lanoxin] 0.125 mg PO DAILY #30 tab 10/06/18 10/19/18 Rx Atorvastatin Calcium [Lipitor] 40 mg PO DAILY 10/19/18 10/19/18 History Naloxegol Oxalate [Movantik] 25 mg PO DAILY 10/19/18 10/19/18 History Ondansetron [Zuplenz] 4 mg PO Q8HR PRN 10/19/18 10/19/18 History - History PMHx: atrial flutter, COPD on 3L at home, HfpEF, GERD, urinary retention, PAD, depression/anxiety, CHRIS on CPAP, OA, DMII, HTN, CKDIII, HLD, fibromyalgia PSHx: B/L ooprectomy, kelly, appe, left knee surgery x2, tonsillectomy, aortobypass surgery in 2017 FHx: Mom and grandfather- CVA Maternal grandmother & mom- DMII Social: 50 pack year smoking history. Currently smoking 1/2 ppd. No EtOH or drug use. Lives in [place] with . - Review of Systems General: reports: weight/appetite/sleep changes, fatigue. denies: fever/chills Eyes: denies: eye pain, vision changes ENT: reports: rhinorrhea. denies: nasal congestion Respiratory: reports: cough, shortness of breath, exercise intolerance Cardiovascular: reports: chest pain, palpitation. denies: edema Gastrointestinal: reports: nausea, vomiting. denies: diarrhea, constipation, abdominal pain Genitourinary: reports: other (urinary retention w/ difficulty voiding, no hematuria). denies: dysuria Skin: denies: rashes, itching Musculoskeletal: reports: arthritis/arthralgias. denies: swelling Neurological: denies: numbness, syncope, weakness Psychological: reports: anxiety, depression - Vital signs BP: 108/54 HR: 99 RR: 10 Tmax: 98.9F Pox: 96% on 4l NC Wt: 77kg - Physical Exam Constitutional: NAD, awake, alert and oriented, well developed HEENT: normocephalic and atraumatic, PERRLA, grossly normal vision, grossly normal hearing, other (slightly dry mucus membranes) Neck: supple, FROM Heart: RRR, normal S1/S2, no murmurs/rubs/gallops, pulses present, no edema Lungs: other Abdomen: soft, non-tender, bowel sounds present Musculoskeletal: normal structure, ROM grossly normal Neurological: no focal deficit, CN II-XII intact (grossly) Skin: no rash/lesions, good turgor, no jaundice Heme/Lymphatic: no unusual bruising or bleeding, no purpura, no petechia Psychiatric: normal mood and affect, good judgment and insight, intact recent and remote memory FMR H&P: Results - Labs Result Diagrams: 10/20/18 04:06 10/20/18 04:06 Lab results: WBC 11.2 thou/uL (4.8-10.8) H 10/19/18 17:00 Hgb 13.3 g/dL (12.0-16.0) 10/19/18 17:00 Hct 45.1 % (36.0-47.0) 10/19/18 17:00 MCV 77.5 fL (78.0-98.0) L 10/19/18 17:00 Plt Count 287 thou/uL (130-400) 10/19/18 17:00 Neutrophils % 72.0 % (42.0-75.0) 10/19/18 17:00 Sodium 132 mmol/L (136-145) L 10/19/18 17:00 Potassium 3.2 mmol/L (3.5-5.1) L 10/19/18 17:00 Chloride 76 mmol/L (98-107) L 10/19/18 17:00 Carbon Dioxide 35 mmol/L (22-29) H 10/19/18 17:00 BUN 75 mg/dL (9.8-20.1) H 10/19/18 17:00 Creatinine 2.04 mg/dL (0.6-1.1) H 10/19/18 17:00 Glucose 135 mg/dL (70-105) H 10/19/18 17:00 Calcium 9.2 mg/dL (7.8-10.44) 10/19/18 17:00 Total Bilirubin 2.6 mg/dL (0.2-1.2) H 10/19/18 17:00 AST 16 U/L (5-34) 10/19/18 17:00 ALT 9 U/L (8-55) 10/19/18 17:00 Alkaline Phosphatase 67 U/L (40-150) 10/19/18 17:00 Serum Total Protein 7.9 g/dL (6.0-8.3) 10/19/18 17:00 Albumin 4.4 g/dL (3.5-5.0) 10/19/18 17:00 - EKG Interpretation EKG: NSR w/ PACs - Radiology Interpretation Chest x-ray Status: image reviewed by me (pulmonary edema), report reviewed by me CT scan - head Status: report reviewed by me (no acute IC findings) FMR H&P: A/P - Problem List (1) COPD with acute exacerbation Current Visit: Yes Status: Acute Code(s): J44.1 - CHRONIC OBSTRUCTIVE PULMONARY DISEASE W (ACUTE) EXACERBATION (2) Acute and chronic respiratory failure with hypoxia Current Visit: Yes Status: Acute Code(s): J96.21 - ACUTE AND CHRONIC RESPIRATORY FAILURE WITH HYPOXIA (3) CKD (chronic kidney disease), stage III Current Visit: Yes Status: Chronic Code(s): N18.3 - CHRONIC KIDNEY DISEASE, STAGE 3 (MODERATE) (4) CHRIS (obstructive sleep apnea) Current Visit: Yes Status: Chronic Code(s): G47.33 - OBSTRUCTIVE SLEEP APNEA (ADULT) (PEDIATRIC) (5) History of atrial flutter Current Visit: Yes Status: Chronic Code(s): Z86.79 - PERSONAL HISTORY OF OTHER DISEASES OF THE CIRCULATORY SYSTEM (6) Lactic acidosis Current Visit: Yes Status: Acute Code(s): E87.2 - ACIDOSIS (7) Hyponatremia Current Visit: Yes Status: Acute Code(s): E87.1 - HYPO-OSMOLALITY AND HYPONATREMIA (8) Hypokalemia Current Visit: Yes Status: Acute Code(s): E87.6 - HYPOKALEMIA (9) COPD (chronic obstructive pulmonary disease) Current Visit: Yes Status: Chronic Qualifiers: (10) Diabetes mellitus, type II Current Visit: Yes Status: Chronic Qualifiers: 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: without local intermodal truck driver use Chronic kidney disease stage: stage 3 (moderate) (11) Fibromyalgia Current Visit: Yes Status: Chronic (12) GERD (gastroesophageal reflux disease) Current Visit: Yes Status: Chronic Code(s): K21.9 - GASTRO-ESOPHAGEAL REFLUX DISEASE WITHOUT ESOPHAGITIS (13) Hyperlipidemia Current Visit: Yes Status: Chronic Code(s): E78.5 - HYPERLIPIDEMIA, UNSPECIFIED (14) Hypertension Current Visit: Yes Status: Chronic Code(s): I10 - ESSENTIAL (PRIMARY) HYPERTENSION (15) Major depressive disorder Current Visit: Yes Status: Chronic Code(s): F32.9 - MAJOR DEPRESSIVE DISORDER, SINGLE EPISODE, UNSPECIFIED (16) Nicotine dependence Current Visit: Yes Status: Chronic Code(s): F17.200 - NICOTINE DEPENDENCE, UNSPECIFIED, UNCOMPLICATED (17) Osteopenia Current Visit: Yes Status: Chronic Code(s): M85.80 - OTH DISRD OF BONE DENSITY AND STRUCTURE, UNSPECIFIED SITE (18) PVD (peripheral vascular disease) with claudication Current Visit: Yes Status: Chronic Code(s): I73.9 - PERIPHERAL VASCULAR DISEASE, UNSPECIFIED (19) Tobacco abuse Current Visit: Yes Status: Chronic Code(s): Z72.0 - TOBACCO USE (20) RADHA (acute kidney injury) Current Visit: No Status: Acute Code(s): N17.9 - ACUTE KIDNEY FAILURE, UNSPECIFIED - Plan Acute on chronic hypoxic respiratory failure: - Likely multifactorial in nature including a possible CHF exacerbation and/or COPD exacerbation 2/2 possible PNA vs. bronchitis. CXR significant for pulmonary edema which could be from CHF exacerbation but also an exudative effusion from an infectious process. No focal consolidation noted but WBC slightly elevated & patient is requiring more O2 than normal to maintain sats. - Maintaining adequate sats on 4L NC. Will treat both potential causes as described below and wean O2 to baseline requirements as tolerated by the patient. - Will continue to monitor respiratory status closely and obtain an ABG to better assess current respiratory status. Acute on chronic CHF exacerbation: - Mostly likely 2/2 an acute infection. CXR showed pleural effusions and Na also low suggestive of volume overload. BNP was also elevated just over 600. s/ p 40 IV lasix in the ED. - Will start on 80mg IV lasix BID since patient is normally on 4mg bumex BID at home. - Will get QD weights, strict I&Os, and fluid restrict to 1500mL/day. Acute on chronic COPD exacerbation: - Suspect possibly 2/2 an acute PNA vs. bronchitis due to recent hospitalization. s/p 2g of cefepime, duonebs, & IV steroids in the ED but will start on IV vancomycin and levaquin & tailor antibiotics accordingly pending culture results and clinical status. - Will also continue ENRIQUE & PRN Duonebs and PO steroids. - Will continue supplemental O2 to maintain sats >88% & wean as tolerated by patient. Lactic acidosis: - Lactate significantly elevated on presentation at 7.3. Suspect possibly 2/2 infection but low concern for sepsis based on fact that patient is hemodynamically stable. Could also just be 2/2 the fact that the patient COPD significantly impairing her O2 delivery. Will continue to trend. Hyponatremia & hypochloremia: - Likely 2/2 volume overload from suspected CHF exacerbation. Will continue w/ fluid restriction overnight and continue to monitor w/ QD BMPs. Hypokalemia: - K 3.2 on admission. Will give a 1 time 40mEq PO dose in addition to her 40mEq BID home dosing, especially since we are continuing IV lasix. - Will continue to monitor & treat PRN. Indeterminate trop: - Elevated on admission but lower than previous levels. Downtrended on repeat. RADHA on CKD stage III: - Cr elevated at 2.4 w/ an eGFR of 25 on presentation slightly worse than baseline. Could be 2/2 volume overload & cardiorenal in nature; however, patient also reports urinary retention and BUN:Cr ratio >20 suggestive of post- renal etiology. - Will continue to monitor w/ QD BMPs. DMII: - Will resume home victoza but hold metformin 2/2 lactic acidosis & RADHA. - Mild SSI & hypoglycemia protocol also ordered. - Will get ACHS acuchecks. COPD: - Aware, in acute exacerbation. Will treat as outlined above. HfpEF: - Aware, in acute exacerbation. Will treat as outlined above. HTN: - Aware, will resume home meds. PVD: - Aware, will resume home meds. Fibromyalgia: - Aware, will resume home meds. GERD: - Aware, will resume home meds. atrial flutter: - Aware, will resume home meds. Depression/anxiety: - Aware, will resume home meds. chronic pain: - Aware, will resume home meds. CHRIS on CPAP: - Will order CPAP HS. tobacco use: - Nicotine patch, will encourage cessation. FMR H&P: Upper Level - Pertinent history F53 with known history of COPD and hospitalization 2 week prior presents for shortness of breath for 1 week. SOB associated with palpitation, measured hypoxia down to 84% on 3 L (patient's baseline O2), purulent cough. She has tried mucinex with some relief. Her symptom worse with exertion. She denies fever, chest pain, nausea, diaphoresis.. - Pertinent findings Gen: Alert, oriented, interactive HEENT: Normocephalic. Vision and hearing grossly intact. Midline trachea. Moist mucosal membrane CV: RRR with no apparent g/r. Mild 1/6 systolic murmur. Resp: Crackles in lower lung bases. Unlabored. On 3 L by NC GI: Normoactive, not tender to palpation Ext: 1+ pitting edema in lower miranda Derm: No obvious acute skin lesion Neuro: Logical thought process, no focal deficit - Plan Date/Time: 10/19/18 1758 I, [Hermilo Ly], have evaluated this patient and agree with findings/plan as outlined by internal medicine hospitalist resident. Pertinent changes/additions are listed here. 1. Acute hypoxic resp failure likely due to CHF - Will obtain ABG - BNP elevation over baseline, CXR and lung finding suggestive for CHF. Apparently on 4mg bumax daily, so will start with 80 Lasix IV BID, daily weight , strict I/O, fluid restriction - Consider HAP, hospitalization 2 week prior. Repeat lactic acid, procal, blood culture studies. Start levaquin and vanc. Deescalate as appropriate. Not septic , no fluid at this time. - Consider COPD: Has known history of this. Will start on albuterol, O2 support. 2. Hyponatremia: - Asymtomatic, lower then former baseline - Likely from CHF, fluid restriction 1500 3. Hypokalemia - Asymptomatic, likely from CHF, diuretics - Oral replacement 4. RADHA with CKD - CKD III at baseline, with worsening Cr likely from CHF exacerbation - Plan, diuresis with knowledge function may worsen in short term 5. Hyperbilirubinemia - Bili 2.6, likely from CHF exacerbation - Advise follow up after CHF resolves 6. Indeterminate trop - 0.093, lower then previous baseline - No further work up 7. Mild leukocytosis - Along with lactic acid, must consider HAP with recent hospitalization - Abx regimen, culture as above 6. Metabolic acidosis - Likely from chronic respiratory failure - Continue to monitor with BMP lab 8. Tobacco Abuse - Counseling, nicotine patch 9. Depression - Chronic stable issue, continue duloxetine 10. DM2 - Chronic stable issue. - SSI, hold due to GFR under 30, at 25. See internal medicine hospitalist note for full patient's chronic issues. Addendum - Attending - Attending Attestation Date/Time: 10/20/18 0354 I personally evaluated the patient and discussed the management with Dr. Doherty and Kristy on 10/19. I agree with and repeated the History, Examination, Assessment and Plan documented above with any addition or exceptions noted below. Patient with 1 week of worsened O2 sats and increased [place]. Has denies PND/ orthopnea. Does have more abdominal swelling, which she says is where she retains fluid, and has been weighing more at home. Denies chest pain. Also c/o Right knee pain from a fall in the last several days. Also had sign claudication of her right leg where she had a stent placed and is concerned about that. She has some urinary retention and used to self cath but has not recently. No dysuria, urgency, fever, chills. On exam she is resting comfortably, very pleasant and speaks in full sentences. Her heart is regular without murmur. She has no accessory use, has poor air movement, and scant insp crackles at the bases. No pedal/pretibial edema. Her neuro exam is unremarkable. She has no pulses to her right leg, which is warm with evidence of healed annular scars on the pretibial area. Labs and imaging reviewed. Acute on chronic hypoxic resp failure likely 2/2 acute on chronic CHF exac. I believe she has cardiorenal syndrome and we will attempt diuresis. She received fluids in the ER. She has a lactic acidosis but does not appear septic. Send UA/UCx to r/o urinary infection, and blood cultures have been sent. We will monitor her closely.
[2018-10-19] MEDS ORDERED: Cefepime 2 GM VIAL ONE (18:42)
[2018-10-19] MEDS ORDERED: Acetaminophen 325 MG TAB PO PRN (18:46)
[2018-10-19] MEDS ORDERED: Dextrose 50% Abboject 50 ML SYRINGE SLOW IVP PRN (18:46)
[2018-10-19] MEDS ORDERED: Dextrose 5% in Water 1,000 ML IV PRN (18:46)
[2018-10-19] MEDS ORDERED: Ondansetron ODT 4 MG TAB PO PRN (18:46)
[2018-10-19] MEDS ORDERED: Senokot S 8.6-50 MG TAB PO PRN (19:26)
[2018-10-19] MEDS ORDERED: Potassium Chloride 20 MEQ TAB PO SCH (19:45)
[2018-10-19] MEDS ORDERED: Vancomycin HCl 1.25 GM in Sodium Chloride 0.9% 250 ML 300 ML IVPB SCH (22:00)
[2018-10-19 22:08] LABS: Lactic Acid 8.3 mmol/L (0.5-2.2)
[2018-10-19] MEDS: DULoxetine 30 MG CAP PO SCH (22:17)
[2018-10-19] MEDS: Gabapentin 300 MG CAP PO SCH (22:17)
[2018-10-19] MEDS: Nicotine 14 MG PATCH TD SCH (22:19)
[2018-10-19 22:30] VITALS: BMI 29.5
[2018-10-19 23:12] LABS: Actual Bicarbonate (HCO3a) 29.8 mEq/L (22-28); Base Excess (BEa) 5.3 mEq/L (-2.0 to +3.0); CO2 Tension 42.9 mmHg (35.0-45.0); O2 Tension (PaO2) 96.7 mmHg (80.0-100.0); pH, Arterial 7.46 (7.35-7.45)
[2018-10-19 23:13] LABS: Carboxyhemoglobin (COHb) 7.8 gm% (0.0-3.0); Hemoglobin (Hb) 12.5 g/dL (12.0-16.0); Potassium - ABG Lab 3.35 mmol/L (3.70-5.30)
[2018-10-19 23:14] LABS: ALV-art Gradient 170.525 (0-20); Analyzer IN Cardio OR; Puncture Site R RADIAL
--- NOTE | 2018-10-19 23:37 | RAD ---
RIGHT KNEE FOUR VIEWS 10/19/18 INDICATION: Fall with right knee pain. COMPARISON: Prior exam dated 12/18/16. FINDINGS: No acute fracture or subluxation is evident. There is mild osteoarthrosis of the right knee. There ar e prominent vascular calcifications within the posterior soft tissues. IMPRESSION: No acute osseous abnormality. POS: JORY
[2018-10-19] MEDS: Potassium Chloride 20 MEQ TAB PO SCH (23:40)
[2018-10-20 01:08] LABS: CKMB 2.7 ng/mL (0-6.6)
[2018-10-20] MEDS: HYDROcodone/Acetaminophen 10/325 mg Tablet PO PRN ×4 (02:03→23:29)
[2018-10-20 04:39] LABS: Bilirubin Negative (Negative); Blood, Urine Negative (Negative); Clarity CLOUDY (Clear); Glucose, Urine (Dipstick) Negative (Negative); Leukocyte Trace (Negative); Nitrite Negative (Negative); Protein, Urine (Dipstick) Negative (Neg-Trace); Specific Gravity, Urine 1.011 (1.002-1.036)
[2018-10-20 04:43] LABS: Bacteria/HPF None Seen HPF (None Seen); Hyaline Casts/LPF 7-10 HYALINE CAST LPF (0-3 Hyaline)
[2018-10-20 04:45] LABS: Pathc Cast-AUWi Flag 2.61 (0-2.49); Yeast-AUWi Flag 144.7 (0-25.0)
[2018-10-20 05:01] LABS: Renal Epithelial None Seen HPF (0-3)
[2018-10-20 05:02] LABS: RBC/HPF 0-3 HPF (0-3); Yeast-All Forms None Seen HPF (None Seen)
[2018-10-20 05:17] LABS: #Basophils 0.1 thou/uL (0.0-0.2); #Eosinphils 0.1 thou/uL (0.0-0.7); #Lymphocytes 3.9 thou/uL (1.20-3.40); #Monocytes 0.8 thou/uL (0.11-0.59); #Neutrophils 5.2 thou/uL (1.40-6.50); %Basophils 0.9 % (0.0-1.0); %Lymphocytes 38.9 % (21.0-51.0); %Monocytes 8.1 % (0.0-10.0); Hemoglobin 11.7 g/dL (12.0-16.0); Mean Corpuscular HGB CONC 29.5 g/dL (32.0-36.0); Mean Corpuscular Hemoglobin 23.3 pg (27.0-31.0); Mean Corpuscular Volume 79.1 fL (78.0-98.0); Platelet Count 236 thou/uL (130-400); RBC Distribution Width 19.9 % (11.5-14.5); Red Blood Cell (RBC) Count 5.03 mill/uL (4.20-5.40); White Blood Cell (WBC) Count 10.1 thou/uL (4.8-10.8)
[2018-10-20 05:36] LABS: Anion Gap 23 mmol/L (10-20); BUN (Urea Nitrogen) 69 mg/dL (9.8-20.1); Calc. Creatinine Clearance 49 mL/min (70-130); Calcium 8.3 mg/dL (7.8-10.44); Carbon Dioxide 33 mmol/L (22-29); Chloride 79 mmol/L (98-107); Estimated GFR-MDRD 33; Glucose 152 mg/dL (70-105); Sodium 132 mmol/L (136-145)
--- NOTE | 2018-10-20 05:38 | PDOC.FM ---
- Subjective Subjective: Patient states she is feeling better this AM. - Objective Vital Signs & Weight: Vital Signs (12 hours) Temp Pulse Resp BP BP Pulse Ox 10/20/18 02:43 92 L 10/20/18 00:01 96.5 F L 97 18 120/58 L 94 L 10/19/18 22:59 93 L 10/19/18 22:56 95 20 93 L 10/19/18 19:20 93 L 10/19/18 19:18 98.8 F 94 16 106/55 L 93 L Weight Weight 77.927 kg Result Diagrams: 10/20/18 04:06 10/20/18 04:06 Phys Exam - Physical Examination Constitutional: NAD HEENT: moist MMs Neck: no nodes, supple Respiratory: no wheezing, clear to auscultation bilateral decreased breath sounds at the base Cardiovascular: RRR, no significant murmur Gastrointestinal: soft, non-tender, no distention Musculoskeletal: no edema, pulses present Dx/Plan (1) CHF exacerbation Code(s): I50.9 - HEART FAILURE, UNSPECIFIED Status: Acute (2) Acute and chronic respiratory failure with hypoxia Code(s): J96.21 - ACUTE AND CHRONIC RESPIRATORY FAILURE WITH HYPOXIA Status: Acute (3) Hypokalemia Code(s): E87.6 - HYPOKALEMIA Status: Acute (4) Hyponatremia Code(s): E87.1 - HYPO-OSMOLALITY AND HYPONATREMIA Status: Acute (5) Lactic acidosis Code(s): E87.2 - ACIDOSIS Status: Acute (6) CKD (chronic kidney disease), stage III Code(s): N18.3 - CHRONIC KIDNEY DISEASE, STAGE 3 (MODERATE) Status: Chronic (7) COPD (chronic obstructive pulmonary disease) Status: Chronic Qualifiers: (8) Diabetes mellitus, type II Status: Chronic Qualifiers: Diabetes mellitus 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 use: without penitentiary use Chronic kidney disease stage: stage 3 (moderate) (9) Fibromyalgia Status: Chronic (10) GERD (gastroesophageal reflux disease) Code(s): K21.9 - GASTRO-ESOPHAGEAL REFLUX DISEASE WITHOUT ESOPHAGITIS Status: Chronic (11) History of atrial flutter Code(s): Z86.79 - PERSONAL HISTORY OF OTHER DISEASES OF THE CIRCULATORY SYSTEM Status: Chronic (12) Hyperlipidemia Code(s): E78.5 - HYPERLIPIDEMIA, UNSPECIFIED Status: Chronic (13) Hypertension Code(s): I10 - ESSENTIAL (PRIMARY) HYPERTENSION Status: Chronic (14) Major depressive disorder Code(s): F32.9 - MAJOR DEPRESSIVE DISORDER, SINGLE EPISODE, UNSPECIFIED Status : Chronic (15) Nicotine dependence Code(s): F17.200 - NICOTINE DEPENDENCE, UNSPECIFIED, UNCOMPLICATED Status: Chronic (16) CHRIS (obstructive sleep apnea) Code(s): G47.33 - OBSTRUCTIVE SLEEP APNEA (ADULT) (PEDIATRIC) Status: Chronic (17) PVD (peripheral vascular disease) with claudication Code(s): I73.9 - PERIPHERAL VASCULAR DISEASE, UNSPECIFIED Status: Chronic (18) Tobacco abuse Code(s): Z72.0 - TOBACCO USE Status: Chronic (19) Contusion of right knee Code(s): S80.01XA - CONTUSION OF RIGHT KNEE, INITIAL ENCOUNTER Status: Acute Qualifiers: Encounter type: subsequent encounter Qualified Code(s): S80.01XD - Contusion of right knee, subsequent encounter (20) Atrial flutter Code(s): I48.92 - UNSPECIFIED ATRIAL FLUTTER Status: Acute - Plan Plan: Acute hypoxic resp failure likely due to CHF - BNP elevation over baseline, CXR and lung finding suggestive for CHF. - Resume 4mg bumax daily, daily weight, strict I/O, fluid restriction - LA downtrending, now 4.4 - Consider HAP, hospitalization 2 week prior - Procal neg, trend - blood cultures pending - Levaquin and vanc. Not septic, no fluid at this time. - Consider COPD: Has known history of this. Albuterol, O2 support. - ABG neg Lactic Acidosis -Improving, 4.4 today Hyponatremia: - Asymptomatic, lower then former baseline - Likely from CHF, fluid restriction 1500 Hypokalemia - Asymptomatic, likely from CHF, diuretics - Oral replacement BID, continue to monitor RADHA with CKD - CKD III at baseline, with worsening Cr likely from CHF exacerbation - Plan, diuresis with knowledge that may worsen in short term Hyperbilirubinemia - Bili 2.6, likely from CHF exacerbation Indeterminate trop, stable - 0.093, lower then previous baseline - No further work up Mild leukocytosis - Along with lactic acid, must consider HAP with recent hospitalization - Abx regimen as above, blood cultures pending - Procal neg Tobacco Abuse - Counseling, nicotine patch Depression - Chronic stable issue, continue duloxetine DM2 - Chronic stable issue. - SSI, hold due to GFR under 30, at 25. COPD: - Aware, in acute exacerbation. Will treat as outlined above. HfpEF: - Aware, in acute exacerbation. Will treat as outlined above. HTN: - Aware, will resume home meds. PVD: - Aware, will resume home meds. Fibromyalgia: - Aware, will resume home meds. GERD: - Aware, will resume home meds. Paroxysmal atrial flutter s/p ablation - Aware, will resume home meds. - Consider cardiology consult chronic pain: - Aware, will resume home meds. CHRIS on CPAP: - Will order CPAP HS. Code: partial, cardiac only PCP: NASRIN Chen Dispo: will stay and be monitored today, discharge next 2-3 days pending clinical picture Addendum - Attending - Attending Attestation Date/Time: 10/20/18 0283 I personally evaluated the patient and discussed the management with Dr. Woodruff. I agree with the History, Examination, Assessment and Plan documented above with any addition or exceptions noted below. Patient here with acute on chronic hypoxia that I believe is more likely due to CHF. She has evidence of volume overload, and some intermittent SVT, possible Aflutter, that is likely throwing her into exacerbation. Continue diuresis and strict i/o. Cardiology consult placed. Continue meds for mild COPD exacerbation , but withhold further abx with reassuring PCT. She has severe hypokalemia that she has had before due to doses of diuretics, will work to replete and recheck this pm. Elevated lactate could be mild hypoperfusion, regional ischemia, medication effect. Low suspicion of sepsis. Will trend but patient ABG reassuring.
[2018-10-20 05:41] LABS: Potassium 2.9 mmol/L (3.5-5.1)
[2018-10-20] MEDS ORDERED: Furosemide 40 MG/4 ML VIAL SLOW IVP SCH (06:00)
[2018-10-20] MEDS ORDERED: Furosemide 100 MG/10 ML VIAL SLOW IVP SCH (06:00)
[2018-10-20] MEDS ORDERED: Potassium Chloride 20 MEQ TAB PO SCH (06:11)
[2018-10-20 06:57] LABS: Lactic Acid 4.4 mmol/L (0.5-2.2)
[2018-10-20] MEDS ORDERED: metFORMIN 500 MG TAB PO SCH (08:00)
[2018-10-20] MEDS: predniSONE 20 MG TAB PO SCH (08:44)
[2018-10-20] MEDS: Digoxin 0.125 MG TAB PO SCH (08:44)
[2018-10-20] MEDS: DULoxetine 30 MG CAP PO SCH ×2 (08:44→21:31)
[2018-10-20] MEDS: Enoxaparin Sodium 40 MG/0.4 ML SYRINGE SC SCH (08:44)
[2018-10-20] MEDS: Aspirin 81 mg Enteric Coated Tablet PO SCH (08:44)
[2018-10-20] MEDS: Potassium Chloride 20 MEQ TAB PO SCH ×2 (08:45→21:31)
[2018-10-20] MEDS: Magnesium Oxide 400 MG TAB PO SCH (08:45)
[2018-10-20] MEDS: Gabapentin 300 MG CAP PO SCH ×3 (08:45→21:31)
[2018-10-20] MEDS ORDERED: predniSONE 5 MG TAB PO SCH (09:00)
[2018-10-20] MEDS ORDERED: HYDROcodone/Acetaminophen 5/325 mg Tablet PO SCH (09:00)
[2018-10-20 11:03] LABS: Magnesium 1.3 mg/dL (1.6-2.6); Phosphorus 3.6 mg/dL (2.3-4.7)
[2018-10-20 14:30] LABS: Lactic Acid 3.6 mmol/L (0.5-2.2)
[2018-10-20 14:31] LABS: Anion Gap 19 mmol/L (10-20); BUN (Urea Nitrogen) 61 mg/dL (9.8-20.1); Calc. Creatinine Clearance 55 mL/min (70-130); Calcium 8.3 mg/dL (7.8-10.44); Carbon Dioxide 35 mmol/L (22-29); Chloride 82 mmol/L (98-107); Estimated GFR-MDRD 38; Glucose 183 mg/dL (70-105); Sodium 133 mmol/L (136-145)
[2018-10-20 14:35] LABS: Potassium 2.9 mmol/L (3.5-5.1)
[2018-10-20] MEDS ORDERED: ONDANSETRON 4 MG PO PRN (15:57)
[2018-10-20] MEDS ORDERED: Potassium Chloride 40 MEQ in Sodium Chloride 0.9% 500 ML IVPB SCH (16:00)
[2018-10-20] MEDS: Bumetanide 1 MG TAB PO SCH ×2 (16:11→21:30)
[2018-10-20] MEDS: HumaLOG 300 UNITS/3 ML VIAL SC PRN ×2 (17:12→21:34)
--- NOTE | 2018-10-20 18:08 | CON ---
DATE OF CONSULTATION: 10/20/2018 REASON FOR CONSULTATION: Atrial flutter and possible heart failure. 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 Valdovinos is a pleasant 53-year-old white female, who comes to the hospital for increased shortness of breath. She has a history of COPD, also has history of typical atrial flutter. She underwent ablation about one month ago by Dr. Gan. Ablation was successful at that time. She has been noticing increased cough with greenish sputum production in the last few days with increased shortness of breath, so she decided to come in. She was started on high-dose steroids and placed on telemetry unit. She was found to have several episodes of rapid atrial flutter that are self-limiting. She states that her breathing is starting to get a little bit better after her steroids. No other issues at this time. PAST MEDICAL HISTORY: 1. Atrial flutter. 2. COPD. 3. Diastolic dysfunction. 4. GERD. 5. Urinary retention. 6. PAD. 7. Anxiety and depression. 8. CHRIS, on CPAP. 9. Osteoarthritis. 10. Type 2 diabetes. 11. Hypertension. 12. Chronic kidney disease, stage 3. 13. Hyperlipidemia. 14. Fibromyalgia. SURGICAL HISTORY: 1. Bilateral oophorectomy. 2. Cholecystectomy. 3. Appendectomy. 4. Left knee surgery twice. 5. Tonsillectomy. 6. CABG in 2017. 7. Flutter ablation a month ago. FAMILY HISTORY: Maternal grandmother and mother with type 2 diabetes and CVAs. SOCIAL HISTORY: Fifty pack year smoking history, currently half pack. No alcohol or drug use. OUTPATIENT MEDICATIONS: 1. Aspirin 81 a day. 2. Albuterol inhaler. 3. Duloxetine. 4. Victoza. 5. Spiriva. 6. Metformin 1000 mg b.i.d. 7. Magnesium oxide 400 mg a day. 8. Potassium chloride 40 mEq twice a day. 9. Gabapentin. 10. Prednisone 5 mg a day. 11. Senokot. 12. Albuterol inhaler. 13. Bumex 4 mg p.o. b.i.d. 14. [place] p.r.n. 15. Protonix 40 mg a day. 16. Digoxin 0.125 daily. 17. Atorvastatin 40 mg a day. 18. Naloxegol. 19. Ondansetron. ALLERGIES: PENICILLIN, LYRICA, AND ADHESIVES. REVIEW OF SYSTEMS: A 12-point review of systems was done and was found to be negative unless stated in the history of present illness. PHYSICAL EXAMINATION: VITAL SIGNS: Temperature 98.5, pulse 80s to 100s, respiratory rate 17, saturating 98% on 2 L, blood pressure 106/47. GENERAL: Awake, alert, and oriented x3, in no distress. HEENT: Normocephalic, atraumatic. NECK: Supple. LUNGS: Have reduced breath sounds bilaterally. CARDIOVASCULAR: S1 and S2. No S3 or S4. Heart rate is regular on my evaluation. ABDOMEN: Soft. Positive bowel sounds. EXTREMITIES: No edema. SKIN: Warm and dry. LABORATORY DATA: Laboratory work was reviewed. CBC with a white count of 11 on admission, down to 10.1; hemoglobin of 13 down to 11; hematocrit 39; platelet count of 236. Chemistry; sodium 133, potassium was low at 2.9, chloride 82, CO2 of 35, anion gap of 19, BUN of 61, creatinine 1.4, lactic acid was 4.4 on admission and down to 3.6, calcium was 8.3, magnesium was 1.3. Troponin was 0.06. CK-MB was 3.7. UA; yellow, cloudy, otherwise unremarkable; 7 to 10 white cells; no urine bacteria. Knee x-ray was unremarkable. ASSESSMENT AND PLAN: 1. Chronic obstructive pulmonary disease with acute exacerbation. 2. Hypokalemia. 3. Hypomagnesemia. 4. Atrial flutter. Within the time frame of expected recurrence after an ablation. 5. Diastolic dysfunction. Seems to be euvolemic. PLAN: 1. Would continue home dose of p.o. Lasix. 2. Replace magnesium and then replace potassium. 3. Would expect her atrial flutter to stop acting up once her potassium has been replaced as well as her magnesium. She is within the time frame where it would be normal to have recurrence of her atrial flutter after ablation. Treat the COPD exacerbation and her aflutter should calm down. 4. Continue p.o. digoxin as per home medications. 5. Not planning on any antiarrhythmics at this time. 6. We will follow closely. Job ID: [id number]
[2018-10-20 21:25] LABS: Potassium 4.1 mmol/L (3.5-5.1)
[2018-10-20] MEDS: Nicotine 14 MG PATCH TD SCH (21:34)
[2018-10-20] MEDS ORDERED: Vancomycin HCl 1.25 GM in Sodium Chloride 0.9% 250 ML 300 ML IVPB SCH (23:59)
--- NOTE | 2018-10-21 05:59 | PDOC.FM ---
- Subjective Subjective: Patient feeling thirsty, also slightly SOB this AM after waking. 2 episodes of SVT overnight. - Objective Vital Signs & Weight: Vital Signs (12 hours) Temp Pulse Resp BP BP Pulse Ox 10/21/18 04:00 98.3 F 113 H 20 118/70 10/21/18 02:41 106 H 14 87 L 10/20/18 22:59 103 H 16 89 L 10/20/18 19:55 97.5 F L 97 18 121/58 L 90 L 10/20/18 19:48 103 H 20 90 L Weight Admit Weight 77.927 kg Weight 77.927 kg I&O: 10/19/18 10/20/18 10/21/18 06:59 06:59 06:59 Intake Total 1450 880 Output Total 400 Balance 1050 880 Result Diagrams: 10/20/18 04:06 10/21/18 05:34 Phys Exam - Physical Examination Constitutional: NAD HEENT: PERRLA, moist MMs Neck: supple Respiratory: no wheezing, clear to auscultation bilateral Decreased breath sounds diffusely Cardiovascular: RRR, no significant murmur Gastrointestinal: soft, non-tender, no distention, positive bowel sounds Musculoskeletal: no edema, pulses present Neurological: moves all 4 limbs Psychiatric: normal affect, A&O x 3 Skin: no rash, normal turgor Dx/Plan (1) CHF exacerbation Code(s): I50.9 - HEART FAILURE, UNSPECIFIED Status: Acute (2) Acute and chronic respiratory failure with hypoxia Code(s): J96.21 - ACUTE AND CHRONIC RESPIRATORY FAILURE WITH HYPOXIA Status: Acute (3) Hypokalemia Code(s): E87.6 - HYPOKALEMIA Status: Acute (4) Hyponatremia Code(s): E87.1 - HYPO-OSMOLALITY AND HYPONATREMIA Status: Acute (5) Lactic acidosis Code(s): E87.2 - ACIDOSIS Status: Acute (6) CKD (chronic kidney disease), stage III Code(s): N18.3 - CHRONIC KIDNEY DISEASE, STAGE 3 (MODERATE) Status: Chronic (7) COPD (chronic obstructive pulmonary disease) Status: Chronic Qualifiers: (8) Diabetes mellitus, type II Status: Chronic Qualifiers: Diabetes mellitus halfway insulin use: without halfway use Chronic kidney disease stage: stage 3 (moderate) (9) Fibromyalgia Status: Chronic (10) GERD (gastroesophageal reflux disease) Code(s): K21.9 - GASTRO-ESOPHAGEAL REFLUX DISEASE WITHOUT ESOPHAGITIS Status: Chronic (11) History of atrial flutter Code(s): Z86.79 - PERSONAL HISTORY OF OTHER DISEASES OF THE CIRCULATORY SYSTEM Status: Chronic (12) Hyperlipidemia Code(s): E78.5 - HYPERLIPIDEMIA, UNSPECIFIED Status: Chronic (13) Hypertension Code(s): I10 - ESSENTIAL (PRIMARY) HYPERTENSION Status: Chronic (14) Major depressive disorder Code(s): F32.9 - MAJOR DEPRESSIVE DISORDER, SINGLE EPISODE, UNSPECIFIED Status : Chronic (15) Nicotine dependence Code(s): F17.200 - NICOTINE DEPENDENCE, UNSPECIFIED, UNCOMPLICATED Status: Chronic (16) CHRIS (obstructive sleep apnea) Code(s): G47.33 - OBSTRUCTIVE SLEEP APNEA (ADULT) (PEDIATRIC) Status: Chronic (17) PVD (peripheral vascular disease) with claudication Code(s): I73.9 - PERIPHERAL VASCULAR DISEASE, UNSPECIFIED Status: Chronic (18) Tobacco abuse Code(s): Z72.0 - TOBACCO USE Status: Chronic (19) Contusion of right knee Code(s): S80.01XA - CONTUSION OF RIGHT KNEE, INITIAL ENCOUNTER Status: Acute Qualifiers: Encounter type: subsequent encounter Qualified Code(s): S80.01XD - Contusion of right knee, subsequent encounter (20) Atrial flutter Code(s): I48.92 - UNSPECIFIED ATRIAL FLUTTER Status: Acute - Plan Plan: Acute hypoxic resp failure likely due to CHF - BNP elevation over baseline, CXR and lung finding suggestive for CHF. - Resume 4mg bumax BID daily, daily weight, strict I/O, fluid restriction -Patient states she was only taking morning dose of bumax usually - LA downtrending, now 4.4 - Procal neg - blood cultures pending - Levaquin and vanc discontinued 10/20. Not septic, no fluid at this time. - ABG neg - Echo 10/20: EF 60-65%, grade 1/3 diastolic dysfunction, RV severely dilated, LA dilated, Pulmonary Hypertension Atrial Flutter -Ablation ~[address] Gan, successful at the time -Patient reports intermittent episodes aflutter over last 1.5 wks, possibly exacerbating her heart failure -Cards consulted 10/20/18, appreciate recommendations -should resolve with Mag and K replacement and treatment of COPD exacerbation -Echo as above Acute COPD exacerbation: - Albuterol, O2 support, daily prednisonex5 d, continue azithromycin - O2 needs almost at baseline home O2 Lactic Acidosis -Improving Hyponatremia: - Asymptomatic, lower then former baseline - Likely from CHF, fluid restriction 1500 Hypokalemia, resolved - Possibly exacerbating her Aflutter, likely from CHF, diuretics - Oral replacement BID, continue to monitor - Received 40 mg IV yesterday - 4.1 then dropped to 2.8 this AM, replace with Oral potassium and recheck this afternoon Hypomagnesemia -Replacing today, recheck this afternoon RADHA with CKD - CKD III at baseline, with worsening Cr likely from CHF exacerbation - Plan, diuresis with knowledge that may worsen in short term Hyperbilirubinemia - Bili 2.6, likely from CHF exacerbation Indeterminate trop, stable - 0.093, lower then previous baseline - No further work up Mild leukocytosis - Along with lactic acid, must consider HAP with recent hospitalization - Abx regimen as above, blood cultures pending - Procal neg Tobacco Abuse - Counseling, nicotine patch Depression - Chronic stable issue, continue duloxetine DM2 - Chronic stable issue. - SSI, hold due to GFR under 30, at 25. HfpEF: - Aware, in acute exacerbation. Will treat as outlined above. HTN: - Aware, will resume home meds. PVD: - Aware, will resume home meds. Fibromyalgia: - Aware, will resume home meds. GERD: - Aware, will resume home meds. chronic pain: - Aware, will resume home meds. CHRIS on CPAP: - CPAP HS. Code: partial, cardiac only PCP: NASRIN Chen Dispo: will stay and be monitored today, discharge next 2-3 days pending clinical picture Addendum - Attending - Attending Attestation Date/Time: 10/21/18 [id number] I personally evaluated the patient and discussed the management with Dr. Woodruff. I agree with the History, Examination, Assessment and Plan documented above with any addition or exceptions noted below. Patient here with suspected COPD exacerbation as well as mild volume overload and CHF in setting of recurrent Aflutter. HR variable. Cardiology has evaluated and recommends lyte replacement and COPD treatment as likely definitive mgmt of Aflutter. K continues to be low, will continue to replete today. Also replete Mg. Continue diuresis. Consider Aldactone use in addition to her home Bumex. Continue COPD treatment and encourage ambulation and activity.
[2018-10-21] MEDS ORDERED: Magnesium Sulfate 3 GM in Sodium Chloride 0.9% 100 ML IVPB SCH (06:00)
[2018-10-21] MEDS: HYDROcodone/Acetaminophen 10/325 mg Tablet PO PRN ×3 (06:04→20:33)
[2018-10-21 06:33] LABS: Anion Gap 18 mmol/L (10-20); BUN (Urea Nitrogen) 54 mg/dL (9.8-20.1); Calc. Creatinine Clearance 59 mL/min (70-130); Calcium 8.2 mg/dL (7.8-10.44); Carbon Dioxide 36 mmol/L (22-29); Chloride 86 mmol/L (98-107); Estimated GFR-MDRD 42; Glucose 168 mg/dL (70-105); Sodium 137 mmol/L (136-145)
[2018-10-21 06:35] LABS: Potassium 2.8 mmol/L (3.5-5.1)
[2018-10-21] MEDS ORDERED: Potassium Chloride 20 MEQ TAB PO SCH ×3 (07:45→16:30)
[2018-10-21] MEDS: Atorvastatin Calcium 40 MG TAB PO SCH (08:20)
[2018-10-21] MEDS: Gabapentin 300 MG CAP PO SCH ×3 (08:20→20:35)
[2018-10-21] MEDS: predniSONE 20 MG TAB PO SCH (08:20)
[2018-10-21] MEDS: Magnesium Oxide 400 MG TAB PO SCH (08:20)
[2018-10-21] MEDS: Digoxin 0.125 MG TAB PO SCH (08:20)
[2018-10-21] MEDS: Bumetanide 1 MG TAB PO SCH ×2 (08:21→20:34)
[2018-10-21] MEDS: DULoxetine 30 MG CAP PO SCH ×2 (08:21→20:35)
[2018-10-21] MEDS: Aspirin 81 mg Enteric Coated Tablet PO SCH (08:21)
[2018-10-21] MEDS: Enoxaparin Sodium 40 MG/0.4 ML SYRINGE SC SCH (08:21)
[2018-10-21] MEDS ORDERED: Liraglutide [Victoza 2-Pak] 1.2 MG SC SCH (09:00)
[2018-10-21] MEDS: Potassium Chloride 20 MEQ TAB PO SCH ×2 (10:09→20:35)
[2018-10-21] MEDS: Spironolactone 25 MG TAB PO SCH (10:10)
[2018-10-21 14:38] LABS: BUN (Urea Nitrogen) 47 mg/dL (9.8-20.1); Calc. Creatinine Clearance 75 mL/min (70-130); Calcium 8.3 mg/dL (7.8-10.44); Estimated GFR-MDRD 52; Glucose 234 mg/dL (70-105)
[2018-10-21 14:46] LABS: Anion Gap 22 mmol/L (10-20); Carbon Dioxide 32 mmol/L (22-29); Chloride 86 mmol/L (98-107); Sodium 137 mmol/L (136-145)
--- NOTE | 2018-10-21 18:37 | PDOC.CTH ---
Cardiology Progress Note - Subjective No new issues. Doing much better today. - Objective Vital Signs Temp Pulse Resp BP Pulse Ox 10/21/18 15:41 98.3 F 93 20 133/61 91 L 10/21/18 15:39 78 16 10/21/18 12:10 97.9 F 78 20 126/58 L 92 L 10/21/18 11:41 95 16 10/21/18 08:20 103 H 10/21/18 08:16 98.6 F 103 H 20 113/63 91 L 10/21/18 08:00 91 L 10/21/18 07:33 98 16 89 L Admit Weight 171 lb 12.8 oz Weight 178 lb 1.6 oz 10/20/18 10/21/18 10/22/18 06:59 06:59 06:59 Intake Total 1450 1480 960 Output Total 400 3150 Balance 1050 1480 -2190 - Physical Examination General/Neuro: alert & oriented x3, NAD Neck: no JVD present Lungs: CTA, unlabored respirations Heart: RRR Abdomen: NT/ND Extremities: other: (no edema.) - Telemetry Telemetry Rhythm: NSR - Labs Result Diagrams: 10/20/18 04:06 10/21/18 14:14 Troponin/CKMB CK-MB (CK-2) 2.7 ng/mL (0-6.6) 10/20/18 00:17 Troponin I 0.068 ng/mL (< 0.028) H 10/20/18 00:17 - Assessment/Plan 1. COPD with acute exacerbation. 2. Aflutter. Currently in sinus PLAN: - Continue current meds. - Resume home meds for Afib/fluter. - Replace K and Mg
[2018-10-21] MEDS: Nicotine 14 MG PATCH TD SCH (20:26)
[2018-10-22 00:08] LABS: Vancomycin, Trough 2.6 ug/mL
[2018-10-22] MEDS: HYDROcodone/Acetaminophen 10/325 mg Tablet PO PRN ×3 (05:05→21:23)
--- NOTE | 2018-10-22 06:11 | PDOC.FM ---
- Subjective Subjective: She reports her belly feels more swollen this morning. States she was up and walking around the room and that also made her SOB this AM. Also reports he has not had a BM in a few days. Reports she has had more difficulty voiding. - Objective Vital Signs & Weight: Vital Signs (12 hours) Temp Pulse Resp BP BP Pulse Ox 10/22/18 04:00 98.6 F 96 18 117/57 L 117/57 L 93 L 10/22/18 02:27 89 16 92 L 10/21/18 22:31 93 14 96 10/21/18 20:19 90 L 10/21/18 20:17 98.2 F 98 16 124/58 L 90 L 10/21/18 19:10 106 H 22 H 85 L Weight Admit Weight 77.927 kg Weight 78.471 kg I&O: 10/20/18 10/21/18 10/22/18 06:59 06:59 06:59 Intake Total 1450 1480 1680 Output Total 400 4450 Balance 1050 1480 -2770 Result Diagrams: 10/20/18 04:06 10/22/18 06:30 Phys Exam - Physical Examination Constitutional: NAD Respiratory: no wheezing, no rales, clear to auscultation bilateral decreased breath sounds diffusely Cardiovascular: RRR, no significant murmur Gastrointestinal: soft, positive bowel sounds distended, pain to palpation in lower abdomen Musculoskeletal: no edema, pulses present Neurological: non-focal, moves all 4 limbs Psychiatric: normal affect, A&O x 3 Skin: no rash, normal turgor, cap refill <2 seconds Dx/Plan (1) CHF exacerbation Code(s): I50.9 - HEART FAILURE, UNSPECIFIED Status: Acute (2) Acute and chronic respiratory failure with hypoxia Code(s): J96.21 - ACUTE AND CHRONIC RESPIRATORY FAILURE WITH HYPOXIA Status: Acute (3) Hypokalemia Code(s): E87.6 - HYPOKALEMIA Status: Acute (4) Hyponatremia Code(s): E87.1 - HYPO-OSMOLALITY AND HYPONATREMIA Status: Acute (5) Lactic acidosis Code(s): E87.2 - ACIDOSIS Status: Acute (6) CKD (chronic kidney disease), stage III Code(s): N18.3 - CHRONIC KIDNEY DISEASE, STAGE 3 (MODERATE) Status: Chronic (7) COPD (chronic obstructive pulmonary disease) Status: Chronic Qualifiers: (8) Diabetes mellitus, type II Status: Chronic Qualifiers: Diabetes mellitus termite helper insulin use: without termite helper use Chronic kidney disease stage: stage 3 (moderate) (9) Fibromyalgia Status: Chronic (10) GERD (gastroesophageal reflux disease) Code(s): K21.9 - GASTRO-ESOPHAGEAL REFLUX DISEASE WITHOUT ESOPHAGITIS Status: Chronic (11) History of atrial flutter Code(s): Z86.79 - PERSONAL HISTORY OF OTHER DISEASES OF THE CIRCULATORY SYSTEM Status: Chronic (12) Hyperlipidemia Code(s): E78.5 - HYPERLIPIDEMIA, UNSPECIFIED Status: Chronic (13) Hypertension Code(s): I10 - ESSENTIAL (PRIMARY) HYPERTENSION Status: Chronic (14) Major depressive disorder Code(s): F32.9 - MAJOR DEPRESSIVE DISORDER, SINGLE EPISODE, UNSPECIFIED Status : Chronic (15) Nicotine dependence Code(s): F17.200 - NICOTINE DEPENDENCE, UNSPECIFIED, UNCOMPLICATED Status: Chronic (16) CHRIS (obstructive sleep apnea) Code(s): G47.33 - OBSTRUCTIVE SLEEP APNEA (ADULT) (PEDIATRIC) Status: Chronic (17) PVD (peripheral vascular disease) with claudication Code(s): I73.9 - PERIPHERAL VASCULAR DISEASE, UNSPECIFIED Status: Chronic (18) Tobacco abuse Code(s): Z72.0 - TOBACCO USE Status: Chronic (19) Contusion of right knee Code(s): S80.01XA - CONTUSION OF RIGHT KNEE, INITIAL ENCOUNTER Status: Acute Qualifiers: Encounter type: subsequent encounter Qualified Code(s): S80.01XD - Contusion of right knee, subsequent encounter (20) Atrial flutter Code(s): I48.92 - UNSPECIFIED ATRIAL FLUTTER Status: Acute - Plan Plan: Plan: Acute hypoxic resp failure 2/2 COPD vs CHF - BNP elevation over baseline, CXR and lung finding suggestive for CHF. - Resume 4mg bumax BID daily, daily weight, strict I/O, fluid restriction -Patient states she was only taking morning dose of bumax usually - Started spironolactone - blood cultures pending, NGTD - Echo 10/20: EF 60-65%, grade 1/3 diastolic dysfunction, RV severely dilated, LA dilated, Pulmonary Hypertension - See COPD below Atrial Flutter -Ablation ~[address] Gan, successful at the time -Patient reports intermittent episodes aflutter over last 1.5 wks, possibly exacerbating her heart failure -Cards consulted 10/20/18, appreciate recommendations -should resolve with Mag and K replacement and treatment of COPD exacerbation -Echo as above Acute COPD exacerbation: - Albuterol, O2 support, daily prednisonex5 d, continue azithromycin - O2 needs almost at baseline home O2 Lactic Acidosis -Improving Hyponatremia: - Asymptomatic, lower then former baseline - Likely from CHF, fluid restriction 1500 Hypokalemia, improving - Possibly exacerbating her Aflutter, likely from CHF, diuretics - Oral replacement BID, continue to monitor - K sparing diuretic started yesterday Hypomagnesemia, resolved -WNL RADHA with CKD - CKD III at baseline, with worsening Cr likely from CHF exacerbation - Plan, diuresis with knowledge that may worsen in short term Hyperbilirubinemia - Bili 2.6, likely from CHF exacerbation Indeterminate trop, stable - 0.093, lower then previous baseline - No further work up Mild leukocytosis - Along with lactic acid, must consider HAP with recent hospitalization - Abx regimen as above, blood cultures pending - Procal neg Tobacco Abuse - Counseling, nicotine patch Depression - Chronic stable issue, continue duloxetine DM2 - Chronic stable issue. - SSI, hold due to GFR under 30, at 25. HfpEF: - Aware, in acute exacerbation. Will treat as outlined above. HTN: - Aware, will resume home meds. PVD: - Aware, will resume home meds. Fibromyalgia: - Aware, will resume home meds. GERD: - Aware, will resume home meds. chronic pain: - Aware, will resume home meds. CHRIS on CPAP: - CPAP HS. Constipation -Start schedule sen/doc, colace Code: partial, cardiac only PCP: NASRIN Chen Dispo: possible discharge today or tomorrow. Continue to monitor electrolytes and replace Addendum - Attending - Attending Attestation Date/Time: 10/22/18 [id number] I personally evaluated the patient and discussed the management with Dr. Woodruff. I agree with the History, Examination, Assessment and Plan documented above with any addition or exceptions noted below. Patient reports to me feeling well and that she would like to consider going home today. Need to get K levels normalized now that they are improved. Discuss possible d/c with Cardiology before that time. She also was previously self cathing for urination and reports having difficulty again (not a new issue). Will write for patient to be able to self cath. Can relax fluid restriction somewhat. Possible discharge if K normal and feeling well this PM.
[2018-10-22 07:25] LABS: Anion Gap 16 mmol/L (10-20); BUN (Urea Nitrogen) 43 mg/dL (9.8-20.1); Calc. Creatinine Clearance 79 mL/min (70-130); Calcium 8.2 mg/dL (7.8-10.44); Carbon Dioxide 34 mmol/L (22-29); Chloride 91 mmol/L (98-107); Estimated GFR-MDRD 57; Glucose 204 mg/dL (70-105); Potassium 3.1 mmol/L (3.5-5.1); Sodium 138 mmol/L (136-145)
[2018-10-22] MEDS ORDERED: Potassium Chloride 20 MEQ TAB PO SCH (08:00)
[2018-10-22] MEDS: Digoxin 0.125 MG TAB PO SCH (08:20)
[2018-10-22] MEDS: DULoxetine 30 MG CAP PO SCH ×2 (08:20→21:22)
[2018-10-22] MEDS: Gabapentin 300 MG CAP PO SCH ×3 (08:21→21:22)
[2018-10-22] MEDS: Enoxaparin Sodium 40 MG/0.4 ML SYRINGE SC SCH (08:21)
[2018-10-22] MEDS: Bumetanide 1 MG TAB PO SCH (08:21)
[2018-10-22] MEDS: Spironolactone 25 MG TAB PO SCH (08:22)
[2018-10-22] MEDS: predniSONE 20 MG TAB PO SCH (08:22)
[2018-10-22] MEDS: Magnesium Oxide 400 MG TAB PO SCH (08:22)
[2018-10-22] MEDS: Potassium Chloride 20 MEQ TAB PO SCH ×2 (08:22→21:23)
[2018-10-22] MEDS: Aspirin 81 mg Enteric Coated Tablet PO SCH (08:22)
[2018-10-22] MEDS: Atorvastatin Calcium 40 MG TAB PO SCH (08:22)
[2018-10-22] MEDS: Polyethylene Glycol 3350 17 GM Packet PO SCH (08:26)
[2018-10-22] MEDS: Senokot S 8.6-50 MG TAB PO SCH ×2 (08:27→21:23)
[2018-10-22] MEDS ORDERED: Bumetanide 1 MG TAB PO PRN (08:54)
[2018-10-22] MEDS ORDERED: Bumetanide 1 MG TAB PO SCH (09:00)
--- NOTE | 2018-10-22 10:27 | PDOC.EVN ---
Event Note - Event Note Event Note: OSIEL note for Chyna Valdovinos: The patient is a 53YOF w/ PMH significant for COPD on 3L of O2 at home, HFpEF, and DMII who presented to the ED from her PCP's office for evaluation for shortness of breath with associated hypoxia and palpitations that she reports have been ongoing for the last 1.5 weeks. Pt was found to be in COPD and CHF exacerbation, has been treated with steroidsx5 days (10/19-10/23), azithromycin x5 days (10/19-10/23). She has DM2, and her blood sugars have been elevated 2/2 to the steroids. Her respiratory status has been improving. She is at baseline home O2, however she is still feeling SOB this AM. She also CHF and is on Bumex 4 mg BID, but usually only takes her morning dose. Echo was done during her stay. Her hypokalemia has been hard to control. She was started on spironolactone this hospital stay for its potassium sparing effects. Of note, Her fluid mostly accumulates in her abdomen, not in her BLE. She was also hypomagnesemic, but that was treated and is resolved. Today her Bumex regimen was changed to scheduled 4 mg Bumex QAM, with a PRN QPM dose. Her fluid restriction was increased from 1500 to 2000 ml/day. She has also been having A flutter. She was treated 4 wks ago with ablation with [facility]. Cardiology was consulted, states her atrial flutter should resolve with electrolyte replacement and COPD exacerbation treatment. She is on Tele monitoring. Last known episode as of now was Sat 10/21 at 8 am. Cardiology is following. Her CKD is at baseline. She is starting to have difficulty urinating (states she has to push). She was on home self-catheterization, which was restarted today. Pt also complains of constipation. Sen/doc and miralax were scheduled today. Barriers to discharge: Respiratory status, electrolyte stabilization, and resolution of her A flutter.
[2018-10-22] MEDS: HumaLOG 300 UNITS/3 ML VIAL SC PRN ×3 (11:46→21:29)
[2018-10-22 14:52] LABS: Anion Gap 17 mmol/L (10-20); BUN (Urea Nitrogen) 43 mg/dL (9.8-20.1); Calc. Creatinine Clearance 81 mL/min (70-130); Calcium 8.2 mg/dL (7.8-10.44); Carbon Dioxide 31 mmol/L (22-29); Chloride 91 mmol/L (98-107); Estimated GFR-MDRD 59; Glucose 240 mg/dL (70-105); Sodium 135 mmol/L (136-145)
--- NOTE | 2018-10-22 17:34 | PDOC.CTH ---
Cardiology Progress Note - Subjective No new issues. Her breathing is slightly worse today. No more palpitations. - Objective Vital Signs Temp Pulse Resp BP Pulse Ox 10/22/18 15:28 98.3 F 99 20 128/61 91 L 10/22/18 14:34 98 16 10/22/18 12:45 98.4 F 98 22 H 99/53 L 91 L 10/22/18 08:42 98.2 F 97 20 144/67 H 92 L 10/22/18 08:00 92 L Admit Weight 171 lb 12.8 oz Weight 173 lb 10/21/18 10/22/18 10/23/18 06:59 06:59 06:59 Intake Total 1480 1680 Output Total 4450 Balance 1480 -2770 - Physical Examination General/Neuro: alert & oriented x3, NAD Neck: no JVD present Lungs: unlabored respirations Heart: RRR Abdomen: NT/ND Extremities: other: (no edema) - Telemetry Telemetry Rhythm: NSR - Labs Result Diagrams: 10/20/18 04:06 10/22/18 14:25 Troponin/CKMB CK-MB (CK-2) 2.7 ng/mL (0-6.6) 10/20/18 00:17 Troponin I 0.068 ng/mL (< 0.028) H 10/20/18 00:17 - Assessment/Plan 1. COPD with acute exacerbation. 2. Aflutter. None since replacing K. PLAN: - Continue current meds. - Continue home meds for Afib/fluter. - Continue to replace K and Mg as needed.
[2018-10-22] MEDS: Nicotine 14 MG PATCH TD SCH (21:24)
--- NOTE | 2018-10-23 05:27 | PDOC.FM ---
- Subjective Subjective: Denies SOB, chest pain, nausea, vomiting. She reports she is doing well this morning and is wondering when she will be able to leave. - Objective MAR Reviewed: Yes Vital Signs & Weight: Vital Signs (12 hours) Temp Pulse Resp BP Pulse Ox 10/23/18 02:19 93 16 92 L 10/22/18 22:21 89 16 91 L 10/22/18 19:19 94 L 10/22/18 19:15 98.5 F 102 H 16 125/59 L 94 L 10/22/18 19:04 102 H 18 89 L Weight Admit Weight 77.927 kg Weight 83.064 kg I&O: 10/21/18 10/22/18 10/23/18 06:59 06:59 06:59 Intake Total 1480 1680 1540 Output Total 4450 3400 Balance 1480 -2770 -1860 Result Diagrams: 10/20/18 04:06 10/23/18 05:42 Phys Exam - Physical Examination Constitutional: NAD HEENT: moist MMs Neck: no JVD, full ROM Respiratory: no wheezing, clear to auscultation bilateral mild crackles at basses Cardiovascular: no significant murmur, no rub Irregularly irregular rhythm, normal rate Gastrointestinal: positive bowel sounds mild distention, pitting edema to mid abdomen Musculoskeletal: pulses present Pitting edema 1+ up leg Neurological: non-focal, moves all 4 limbs Psychiatric: normal affect, A&O x 3 Deviation from normal: Cap refill ~2 seconds Dx/Plan (1) Acute and chronic respiratory failure with hypoxia Code(s): J96.21 - ACUTE AND CHRONIC RESPIRATORY FAILURE WITH HYPOXIA Status: Acute (2) Atrial flutter Code(s): I48.92 - UNSPECIFIED ATRIAL FLUTTER Status: Acute (3) COPD with acute exacerbation Code(s): J44.1 - CHRONIC OBSTRUCTIVE PULMONARY DISEASE W (ACUTE) EXACERBATION Status: Acute (4) Hypokalemia Code(s): E87.6 - HYPOKALEMIA Status: Acute (5) Hyponatremia Code(s): E87.1 - HYPO-OSMOLALITY AND HYPONATREMIA Status: Acute (6) Lactic acidosis Code(s): E87.2 - ACIDOSIS Status: Acute (7) CKD (chronic kidney disease), stage III Code(s): N18.3 - CHRONIC KIDNEY DISEASE, STAGE 3 (MODERATE) Status: Chronic (8) Diabetes mellitus, type II Status: Chronic Qualifiers: Diabetes mellitus longterm insulin use: without superintendent 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 use Chronic kidney disease stage: stage 3 (moderate) (9) Fibromyalgia Status: Chronic (10) GERD (gastroesophageal reflux disease) Code(s): K21.9 - GASTRO-ESOPHAGEAL REFLUX DISEASE WITHOUT ESOPHAGITIS Status: Chronic (11) Hyperlipidemia Code(s): E78.5 - HYPERLIPIDEMIA, UNSPECIFIED Status: Chronic (12) Hypertension Code(s): I10 - ESSENTIAL (PRIMARY) HYPERTENSION Status: Chronic (13) Major depressive disorder Code(s): F32.9 - MAJOR DEPRESSIVE DISORDER, SINGLE EPISODE, UNSPECIFIED Status : Chronic (14) CHRIS (obstructive sleep apnea) Code(s): G47.33 - OBSTRUCTIVE SLEEP APNEA (ADULT) (PEDIATRIC) Status: Chronic (15) PVD (peripheral vascular disease) with claudication Code(s): I73.9 - PERIPHERAL VASCULAR DISEASE, UNSPECIFIED Status: Chronic (16) Tobacco abuse Code(s): Z72.0 - TOBACCO USE Status: Chronic (17) RADHA (acute kidney injury) Code(s): N17.9 - ACUTE KIDNEY FAILURE, UNSPECIFIED Status: Acute - Plan Plan: This is a 53 yo female with a pmh of COPD on 3L NC at home, HFpEF, DM2, CHRIS on CPAP Acute on chronic hypoxic respiratory failure 2/2 CHF exacerbation, COPD exacerbation, and possible bronchitis -Resolved, pt is currently at baseline, maintaining SpO2 on 2-3L NC -Will monitor and have low threshold for ABG if need be Acute on chronic CHF exacerbation (HFpEF) -Pt currently has a net -2L fluid balance for this hospital stay -Pt is currently on home dose of Bumex 4mg BID -Continue monitoring fluid balance, electrolytes, and clinical picture -Continue fluid restriction Acute on Chronic COPD exacerbation -At baseline O2 requirements -Continue scheduled and PRN duonebs -Continue PO steroids (10/19) -Low procal, no current need for ABX -Bicarb is continuing to decrease from initial mid 30s to low 30s Lactic acidosis -Resolved Hyponatremia and hypochloremia -Improving, likely represents fluid overload Hypokalemia -Resolved -Will back off of supplementation after this AM BMP -Pt also on spironolactone RADHA on CKD -GFR steadily improving, currently 59, baseline appears in the 70s Hyperbilirubinemia -2.6 on admission, likely due to hepatic congestion 2/2 CHF, will recheck levels DM2 -Continue victoza -Restart home metformin -Continue ACHS accuchecks and SSI Leukocytosis, resolved Tobacco abuse -Counseling, nicotine patch Depression -Continue duloxetine HTN -Stable PVD -Aware Fibromyalgia -Continue gabapentin and duloxetine GERD -Continue protonix Chronic Pain -Continue norco -Continue senokot and miralax CHRIS -CPAP HS
[2018-10-23] MEDS: HYDROcodone/Acetaminophen 10/325 mg Tablet PO PRN ×2 (05:43→16:15)
[2018-10-23 07:07] LABS: Anion Gap 18 mmol/L (10-20); BUN (Urea Nitrogen) 42 mg/dL (9.8-20.1); Calc. Creatinine Clearance 94 mL/min (70-130); Calcium 8.6 mg/dL (7.8-10.44); Carbon Dioxide 31 mmol/L (22-29); Chloride 92 mmol/L (98-107); Estimated GFR-MDRD 65; Glucose 151 mg/dL (70-105); Potassium 3.7 mmol/L (3.5-5.1); Sodium 136 mmol/L (136-145)
[2018-10-23 08:44] LABS: Bilirubin, Total 1.1 mg/dL (0.2-1.2)
[2018-10-23] MEDS ORDERED: Bumetanide 1 MG TAB PO SCH (09:00)
[2018-10-23] MEDS: predniSONE 20 MG TAB PO SCH (10:39)
[2018-10-23] MEDS: Potassium Chloride 20 MEQ TAB PO SCH (10:39)
[2018-10-23] MEDS: metFORMIN 500 MG TAB PO SCH ×2 (10:39→16:13)
[2018-10-23] MEDS: DULoxetine 30 MG CAP PO SCH (10:40)
[2018-10-23] MEDS: Magnesium Oxide 400 MG TAB PO SCH (10:40)
[2018-10-23] MEDS: Senokot S 8.6-50 MG TAB PO SCH (10:40)
[2018-10-23] MEDS: Atorvastatin Calcium 40 MG TAB PO SCH (10:40)
[2018-10-23] MEDS: Digoxin 0.125 MG TAB PO SCH (10:41)
[2018-10-23] MEDS: Spironolactone 25 MG TAB PO SCH (10:41)
[2018-10-23] MEDS: Aspirin 81 mg Enteric Coated Tablet PO SCH (10:41)
[2018-10-23] MEDS: Enoxaparin Sodium 40 MG/0.4 ML SYRINGE SC SCH (10:43)
[2018-10-23] MEDS: Polyethylene Glycol 3350 17 GM Packet PO SCH (10:44)
[2018-10-23] MEDS: Gabapentin 300 MG CAP PO SCH ×2 (10:51→16:13)
[2018-10-23 16:12] VITALS: BP 129/60; TEMP 98.1
--- NOTE | 2018-10-23 17:18 | PRG ---
DATE OF SERVICE: 10/23/2018 SUBJECTIVE: Ms. Valdovinos is a pleasant 53-year-old lady with a history of COPD and likely cor pulmonale. She was admitted with an exacerbation and is improving to her baseline. She states she feels as well she normally does and is ready to go home. Her echocardiogram revealed an ejection fraction of 60% to 65% with 1-3 diastolic dysfunction. She also has a severely dilated right ventricle with reduced right ventricular systolic function. Her right ventricular systolic pressure is 46. All these findings consistent with pulmonary hypertension likely secondary to her COPD. In the event, she has responded well to regimen for COPD exacerbations and is ready for discharge. Job ID: [id number]
--- NOTE | 2018-10-24 11:47 | DIS ---
DATE OF ADMISSION: 10/19/2018 DATE OF DISCHARGE: 10/23/2018 RESIDENT: Indra Hidalgo DO CONSULTS: Cardiology, Dr. Lipscomb. PROCEDURES: 1. Right knee 4-view x-ray, no acute osseous abnormalities. 2. Chest x-ray findings which favor fluid overload from decompensated CHF, recommend clinical correlation. 3. Echocardiogram showing ejection fraction at 60% to 65%, grade 1/3 diastolic dysfunction, moderately dilated left atrium, severely dilated right ventricle with reduced right ventricular systolic function, markedly enlarged right atrium size , calcified aortic valve, right ventricular systolic pressure estimated at 46 mmHg. PRIMARY DIAGNOSES: 1. Acute hypoxic respiratory failure, likely secondary to congestive heart failure. 2. Hyponatremia. 3. Hypokalemia. 4. Acute kidney injury on chronic kidney disease. 5. Hyperbilirubinemia. SECONDARY DIAGNOSES: 1. Tobacco abuse. 2. Depression. 3. Type 2 diabetes. DISCHARGE MEDICATIONS: 1. Spironolactone 12.5 mg p.o. daily. 2. Albuterol neb q.4 hours p.r.n. wheezing. 3. ProAir two puffs inhaled t.i.d. p.r.n. dyspnea/wheezing. 4. Aspirin 81 mg p.o. daily. 5. Atorvastatin 40 mg p.o. daily. 6. Bumex 4 mg p.o. b.i.d. 7. Digoxin 0.125 mg daily. 8. Duloxetine 30 mg p.o. b.i.d. 9. Gabapentin 600 mg t.i.d. 10. [place] 10 one tab q.i.d. p.r.n. pain. 11. Victoza 1.2 mg SC daily. 12. Magnesium oxide 400 mg p.o. daily. 13. Metformin 1000 mg p.o. b.i.d. 14. Movantik 25 mg p.o. daily. 15. Ondansetron 4 mg p.o. q.8 hours p.r.n. nausea. 16. Protonix 40 mg p.o. daily. 17. Potassium 40 mEq p.o. b.i.d. 18. Prednisone 5 mg p.o. daily. 19. Senokot two tabs p.o. b.i.d. p.r.n. constipation. 20. Tiotropium 18 mcg inhaled daily. DISCONTINUED MEDICATIONS: Prednisone 40 mg p.o. BRIEF HISTORY OF PRESENT ILLNESS/HOSPITAL COURSE: This is a 53-year-old female with past medical history significant for COPD, on 3 L at home, heart failure with preserved ejection fraction, type 2 diabetes, presented to the PCP's office with chief complaint of shortness of breath associated with hypoxia and palpitations. She states this has been worsening for the past 10 days and required increased oxygen and breathing treatments. The patient was admitted to the hospital where she underwent regular breathing treatments as well as aggressive diuresis. The patient's breathing and clinical picture improved with treatment. The patient's electrolyte abnormalities corrected. Of note, the patient was treated one month ago via cardiac ablation for atrial fibrillation/flutter. The patient on admission was in atrial fibrillation, likely due to electrolyte abnormalities, which corrected upon normalization of abnormalities. Anticoagulation was not advised at this time due to the risk versus benefit with risk outweighing benefits. Discussed risks and benefits with the patient at the time of discharge. In addition, the patient has pulmonary hypertension which continued to contribute to her peripheral edema despite clinical improvement. At the time of discharge, the patient was at her baseline for respiratory status and felt comfortable going home. DISPOSITION: Stable. DISCHARGE INSTRUCTIONS: 1. Location: Home. 2. Diet: Heart healthy, diabetic. 3. Activity: Cardiopulmonary limits. 4. Followup: With Dr. Chen in 1 to 2 weeks, [place] [facility]. Job ID: [id number] [facility]
== END 2018-10-23 18:32 | disposition home or self-care (01) | DRG 291 ==
LOC: ERS 16:38 → 2NO 19:19
PROVIDERS: ADMIT Emergency Medicine; ATTEND Emergency Medicine
DX: I13.0 Hypertensive heart and chronic kidney disease with heart failure and stage 1 through stage 4 chronic kidney disease, or unspecified chronic kidney disease (principal); I50.33 Acute on chronic diastolic (congestive) heart failure; J96.21 Acute and chronic respiratory failure with hypoxia; J44.1 Chronic obstructive pulmonary disease with (acute) exacerbation; E87.2 Acidosis; I48.92 Unspecified atrial flutter; E87.1 Hypo-osmolality and hyponatremia; N17.9 Acute kidney failure, unspecified; I47.1 Supraventricular tachycardia; N18.3 Chronic kidney disease, stage 3 (moderate); Z99.81 Dependence on supplemental oxygen; G47.33 Obstructive sleep apnea (adult) (pediatric); E11.22 Type 2 diabetes mellitus with diabetic chronic kidney disease; K21.9 Gastro-esophageal reflux disease without esophagitis; S80.01XD Contusion of right knee, subsequent encounter; M79.7 Fibromyalgia; E87.6 Hypokalemia; E11.51 Type 2 diabetes mellitus with diabetic peripheral angiopathy without gangrene; E78.5 Hyperlipidemia, unspecified; E80.6 Other disorders of bilirubin metabolism; F17.210 Nicotine dependence, cigarettes, uncomplicated; F32.9 Major depressive disorder, single episode, unspecified; M85.80 Other specified disorders of bone density and structure, unspecified site; Z95.1 Presence of aortocoronary bypass graft; Z88.0 Allergy status to penicillin; Z88.8 Allergy status to other drugs, medicaments and biological substances; Z79.84 Long term (current) use of oral hypoglycemic drugs; Z79.82 Long term (current) use of aspirin; Z79.52 Long term (current) use of systemic steroids
CPT/HCPCS: 36415; 36416; 71045; 80048; 80053; 80202; 81001; 82247; 82550; 82553; 82805; 83605; 83735; 83880; 84100; 84145; 84484; 85025; 87040; 87086; 93005; 93306; 93798; 94640; 94760; 96374; 96375; 99406; A4353; J0692; J1650; J1940; J1956; J2930; J3370; J3475; J3480; J7050; J7620

== ENCOUNTER 2018-11-04 21:14 | Inpatient (IN) | payer OTHER ==
[2018-11-04] MEDS ORDERED: methylPREDNISolone Sod Succ/PF 125 MG/2 ML VIAL ONE (21:55)
[2018-11-04 22:08] LABS: Actual Bicarbonate (HCO3a) 42.5 mEq/L (22-28); Analyzer IN Cardio ER; Base Excess (BEa) 18.5 mEq/L (-2.0 to +3.0); CO2 Tension 46.6 mmHg (35.0-45.0); Calcium, Ionized 1.05 mmol/L (1.12-1.30); Carboxyhemoglobin (COHb) 5.3 gm% (0.0-3.0); Hemoglobin (Hb) 11.4 g/dL (12.0-16.0); O2 Tension (PaO2) 76.2 mmHg (80.0-100.0); Potassium - ABG Lab 2.46 mmol/L (3.70-5.30)
[2018-11-04 22:14] LABS: Puncture Site L RADIAL; pH, Arterial 7.58 (7.35-7.45)
--- NOTE | 2018-11-04 22:17 | RAD ---
CHEST ONE VIEW: 11/04/18 INDICATION: Emergency exam. COMPARISON: Prior exam dated 10/19/18. FINDINGS: Cardiomegaly and chronic lung changes are stable. No definite pleural effusion or pneumothorax is jerzy dent. No acute osseous abnormality is evident. IMPRESSION: Stable cardiomegaly and chronic lung changes. POS: [facility]
[2018-11-04 22:28] LABS: #Basophils 0.1 thou/uL (0.0-0.2); #Eosinphils 0.1 thou/uL (0.0-0.7); #Lymphocytes 3.2 thou/uL (1.20-3.40); #Monocytes 0.5 thou/uL (0.11-0.59); #Neutrophils 2.9 thou/uL (1.40-6.50); %Basophils 1.6 % (0.0-1.0); %Eosinophils 0.9 % (0.0-10.0); %Lymphocytes 47.1 % (21.0-51.0); %Neutrophils 42.3 % (42.0-75.0); Mean Corpuscular HGB CONC 28.7 g/dL (32.0-36.0); Mean Corpuscular Hemoglobin 21.9 pg (27.0-31.0); Mean Corpuscular Volume 76.2 fL (78.0-98.0); Mean Platelet Volume 8.1 fL (7.4-10.4); Platelet Count 142 thou/uL (130-400); Red Blood Cell (RBC) Count 5.03 mill/uL (4.20-5.40); White Blood Cell (WBC) Count 6.8 thou/uL (4.8-10.8)
[2018-11-04 22:50] LABS: ALT (SGPT) 23 U/L (8-55); AST (SGOT) 21 U/L (5-34); Albumin 3.8 g/dL (3.5-5.0); Alkaline Phosphatase 91 U/L (40-150); BUN (Urea Nitrogen) 62 mg/dL (9.8-20.1); Bilirubin, Total 3.1 mg/dL (0.2-1.2); Calc. Creatinine Clearance 0 mL/min (70-130); Calcium 10.1 mg/dL (7.8-10.44); Estimated GFR-MDRD 38; Glucose 116 mg/dL (70-105); Protein, Total 6.8 g/dL (6.0-8.3)
[2018-11-04 22:54] LABS: Potassium 2.4 mmol/L (3.5-5.1)
[2018-11-04 23:00] LABS: Anion Gap 20 mmol/L (10-20); Carbon Dioxide 39 mmol/L (22-29); Chloride 76 mmol/L (98-107); Sodium 133 mmol/L (136-145)
[2018-11-04 23:11] LABS: CKMB 1.3 ng/mL (0-6.6)
[2018-11-04] MEDS ORDERED: Potassium Chloride 20 MEQ TAB ONE (23:12)
[2018-11-04] MEDS ORDERED: Magnesium 2 GM/50 ML 2 GM in Premix Bag 1 BAG IVPB SCH (23:15)
--- NOTE | 2018-11-04 23:23 | PDOC.FPRHP ---
- History of Present Illness Chief Complaint: SOB History of Present Illness: The patient is a 53YOF w/ a PMH significant for COPD on 3L of O2 at home, pulmonary HTN, and HfpEF who presented to the ED with a CC of progressively worsening SOB over the course of the last 2 weeks. She reports first noticing progressively worsening LE edema as well as abdominal swelling despite reported compliance with all of her medications. She stated that she saw her PCP, Dr. Chen about 1 week ago and her metolazone dosing was temporarily increased but she continued to have increased swelling. She eventually called EMS after she noticed that her O2 sats were 77% on her normal 3L at home. However, she did note that her O2 was not properly hooked up so once she connected her tubing her sats increased to 88% on her normal 3L. She still proceeded to the ED though because she had noticeably increasing SOB, even while at rest and wanted to be further evaluated. She denies any associated fever, chills, recent sick contacts, productive cough, or orthopnea. She does report PND and nasal congestion. Of note, the patient was recently discharged on 10/23/2018, after being admitted for a CHF exacerbation. She required aggressive diuresis over the course of her stay but was ultimately able to return to her baseline O2 requirements and was therefore deemed stable for discharge. She was seen by her PCP on 10/30/18 and instructed to take metolazone QD for 5 days before resuming regular MWF dosing. ED Course: 40mEq IV & PO potassium & 2g IV Mg - Allergies/Adverse Reactions Allergies Allergy/AdvReac Type Severity Reaction Status Date / Time adhesive Allergy Verified 10/05/18 12:53 Penicillins Allergy Verified 10/05/18 12:53 pregabalin [From Lyrica] Allergy Verified 10/05/18 12:53 - Home Medications Medication Instructions Recorded Confirmed Type Aspirin [Ecotrin Low Strength] 81 mg PO DAILY #0 tab 02/12/16 10/19/18 Rx Albuterol Sulfate [Proair HFA] 2 puff INH TID PRN 05/10/16 10/19/18 History DULoxetine HCl [Cymbalta] 30 mg PO BID 11/11/16 10/19/18 History Liraglutide [Victoza 2-Lion] 1.2 mg SC DAILY 11/11/16 10/19/18 History Tiotropium [Spiriva Handihaler] 18 mcg INH DAILY 11/11/16 10/19/18 History metFORMIN HCl 1,000 mg PO BID-WM 11/11/16 10/19/18 History Magnesium Oxide [Magnesium] 400 mg PO DAILY 12/18/16 10/19/18 History Potassium Chloride [K-Tab ER] 40 meq PO BID 01/06/17 10/19/18 History Gabapentin 2 tab PO TID 07/25/17 10/19/18 History predniSONE [Prednisone] 5 mg PO DAILY 09/11/18 10/19/18 History Sennosides/Docusate Sodium 2 tab PO BID PRN #60 tab 09/15/18 10/19/18 Rx [Senokot S] Albuterol Sulfate [Albuterol 1.25 mg NEB Q4HR PRN 10/05/18 10/19/18 History Sulfate Neb] Bumetanide [Bumex] 4 mg PO BID 10/05/18 10/19/18 History HYDROcodone Bit/APAP 10/325 [[place]] 1 tab PO QID PRN 10/05/18 10/19/18 History Pantoprazole [Protonix] 40 mg PO DAILY 10/05/18 10/19/18 History Digoxin [Lanoxin] 0.125 mg PO DAILY #30 tab 10/06/18 10/19/18 Rx Atorvastatin Calcium [Lipitor] 40 mg PO DAILY 10/19/18 10/19/18 History Naloxegol Oxalate [Movantik] 25 mg PO DAILY 10/19/18 10/19/18 History Ondansetron [Zuplenz] 4 mg PO Q8HR PRN 10/19/18 10/19/18 History Spironolactone [Aldactone] 12.5 mg PO QAM-WM #30 tab 10/23/18 Rx - History PMHx: COPD on 3L at home, atrial flutter, HTN, HLD, PVD, HFpEF, GERD, chronic pain/fibromyalgia, depression, CHRIS on CPAP, urinary retention, CKDIII, DMII, OA PSHx: B/L oophrectomy, kelly, appe, L knee sx x 2, aortobypass sx in 2017, tonsillectomy FHx: Mom and grandfather- CVA Mom and grandmother- DMII Social: Lives at home with in [place]. ~50 pack year smoking history. Smoking 1ppd. No EtOH or drug use. - Review of Systems General: reports: weight/appetite/sleep changes. denies: fever/chills Eyes: denies: vision changes ENT: reports: nasal congestion, other (no sore throat) Respiratory: reports: cough, shortness of breath Cardiovascular: reports: edema, paroxysmal nocturnal dyspnea. denies: chest pain, palpitation, orthopnea Gastrointestinal: reports: nausea, constipation. denies: vomiting, diarrhea Genitourinary: reports: other (urinary retention) Skin: denies: rashes, lesions Musculoskeletal: reports: pain, swelling Neurological: denies: numbness Psychological: reports: depression. denies: anxiety - Vital signs BP: 126/76 HR: 91 RR: 14 Tmax: 98.6F Pox: 92%% on 3L NC Wt: 87.54 kg - Physical Exam Constitutional: NAD, well developed HEENT: normocephalic and atraumatic, grossly normal vision, grossly normal hearing, MMM Neck: supple, FROM Heart: RRR, normal S1/S2, other (2+ pittind edema up to B/L knees) Lungs: no wheezing, no retractions, other (poor air movement throughout, even WITH taking a deep breath) Abdomen: soft, other (distenede abdomen) Musculoskeletal: normal structure, ROM grossly normal Neurological: no focal deficit, CN II-XII intact (grossly) Skin: no rash/lesions, good turgor, no jaundice Heme/Lymphatic: no unusual bruising or bleeding, no purpura, no petechia Psychiatric: normal mood and affect, good judgment and insight, intact recent and remote memory FMR H&P: Results - Labs Result Diagrams: 11/04/18 22:20 11/05/18 07:10 Lab results: WBC 6.8 thou/uL (4.8-10.8) 11/04/18 22:20 Hgb 11.0 g/dL (12.0-16.0) L 11/04/18 22:20 Hct 38.3 % (36.0-47.0) 11/04/18 22:20 MCV 76.2 fL (78.0-98.0) L 11/04/18 22:20 Plt Count 142 thou/uL (130-400) 11/04/18 22:20 Neutrophils % 42.3 % (42.0-75.0) 11/04/18 22:20 ABG pH 7.58 (7.35-7.45) H* 11/04/18 22:05 ABG pCO2 46.6 mmHg (35.0-45.0) H 11/04/18 22:05 ABG pO2 76.2 mmHg (80.0-100.0) L 11/04/18 22:05 Sodium 133 mmol/L (136-145) L 11/04/18 22:20 Potassium 2.4 mmol/L (3.5-5.1) L* 11/04/18 22:20 Chloride 76 mmol/L (98-107) L 11/04/18 22:20 Carbon Dioxide 39 mmol/L (22-29) H 11/04/18 22:20 BUN 62 mg/dL (9.8-20.1) H 11/04/18 22:20 Creatinine 1.45 mg/dL (0.6-1.1) H 11/04/18 22:20 Glucose 116 mg/dL (70-105) H 11/04/18 22:20 Calcium 10.1 mg/dL (7.8-10.44) 11/04/18 22:20 Total Bilirubin 3.1 mg/dL (0.2-1.2) H 11/04/18 22:20 AST 21 U/L (5-34) 11/04/18 22:20 ALT 23 U/L (8-55) 11/04/18 22:20 Alkaline Phosphatase 91 U/L (40-150) 11/04/18 22:20 CK-MB (CK-2) 1.3 ng/mL (0-6.6) 11/04/18 22:20 B-Natriuretic Peptide 1015.8 pg/mL (0-100) H 11/04/18 22:20 Serum Total Protein 6.8 g/dL (6.0-8.3) 11/04/18 22:20 Albumin 3.8 g/dL (3.5-5.0) 11/04/18 22:20 - Radiology Interpretation Chest x-ray Status: report reviewed by me (stable cardiomegaly & chronic lung changes) FMR H&P: A/P - Problem List (1) Acute and chronic respiratory failure with hypoxia Current Visit: No Status: Acute Code(s): J96.21 - ACUTE AND CHRONIC RESPIRATORY FAILURE WITH HYPOXIA (2) Atrial flutter Current Visit: No Status: Acute Code(s): I48.92 - UNSPECIFIED ATRIAL FLUTTER (3) CHF exacerbation Current Visit: No Status: Acute Code(s): I50.9 - HEART FAILURE, UNSPECIFIED (4) Hypokalemia Current Visit: No Status: Acute Code(s): E87.6 - HYPOKALEMIA (5) CKD (chronic kidney disease), stage III Current Visit: No Status: Chronic Code(s): N18.3 - CHRONIC KIDNEY DISEASE, STAGE 3 (MODERATE) (6) COPD (chronic obstructive pulmonary disease) Current Visit: No Status: Chronic Qualifiers: (7) Chronic pain syndrome Current Visit: No Status: Chronic Code(s): G89.4 - CHRONIC PAIN SYNDROME (8) Diabetes mellitus, type II Current Visit: No Status: Chronic Qualifiers: 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: without truck terminal manager use Chronic kidney disease stage: stage 3 (moderate) (9) Fibromyalgia Current Visit: No Status: Chronic (10) GERD (gastroesophageal reflux disease) Current Visit: No Status: Chronic Code(s): K21.9 - GASTRO-ESOPHAGEAL REFLUX DISEASE WITHOUT ESOPHAGITIS (11) History of atrial flutter Current Visit: No Status: Chronic Code(s): Z86.79 - PERSONAL HISTORY OF OTHER DISEASES OF THE CIRCULATORY SYSTEM (12) Hyperlipidemia Current Visit: No Status: Chronic Code(s): E78.5 - HYPERLIPIDEMIA, UNSPECIFIED (13) Hypertension Current Visit: No Status: Chronic Code(s): I10 - ESSENTIAL (PRIMARY) HYPERTENSION (14) Major depressive disorder Current Visit: No Status: Chronic Code(s): F32.9 - MAJOR DEPRESSIVE DISORDER , SINGLE EPISODE, UNSPECIFIED (15) Narcotic dependency, continuous Current Visit: No Status: Chronic Code(s): F11.20 - OPIOID DEPENDENCE, UNCOMPLICATED (16) Nicotine dependence Current Visit: No Status: Chronic Code(s): F17.200 - NICOTINE DEPENDENCE, UNSPECIFIED, UNCOMPLICATED (17) CHRIS (obstructive sleep apnea) Current Visit: No Status: Chronic Code(s): G47.33 - OBSTRUCTIVE SLEEP APNEA (ADULT) (PEDIATRIC) (18) PVD (peripheral vascular disease) with claudication Current Visit: No Status: Chronic Code(s): I73.9 - PERIPHERAL VASCULAR DISEASE, UNSPECIFIED (19) Prolonged Q-T interval on ECG Current Visit: No Status: Chronic Code(s): R94.31 - ABNORMAL ELECTROCARDIOGRAM [ECG] [EKG] (20) Pulmonary hypertension Current Visit: No Status: Chronic Code(s): I27.2 - OTHER SECONDARY PULMONARY HYPERTENSION * DO NOT USE * (21) Tobacco abuse Current Visit: No Status: Chronic Code(s): Z72.0 - TOBACCO USE (22) Metabolic alkalosis with respiratory acidosis Current Visit: Yes Status: Acute Code(s): E87.4 - MIXED DISORDER OF ACID- BASE BALANCE - Plan Acute on chronic hypoxic respiratory failure likely 2/2 an acute CHF exacerbation: - Patient requiring increase in nasal canula O2 from 3L to at least 5L to maintain sats >88%. ABG & BMP showed a concomitant metabolic alkalosis & respiratory acidosis but PO2 low at 76.2. BNP significantly elevated @ >1,000 suggesting a likely CHF exacerbation as most likely source of hypoxia. CXR read as stable w/ chronic lung changes but on comparison to last CXR may have some pulmonary edema. Patient did also appear volume overloaded on exam w/ pitting edema up to B/L knees & abdominal distension. - Will continue nasal canula at increased O2 level for now & wean as tolerated. Will continue to monitor respiratory status closely and initiate diuresis pending AM K level. Metabolic alkalosis w/ concomitant respiratory acidosis: - Alkalosis likely 2/2 diuretic use & patient likely hypoventilating or retaining CO2 to compensate for this; however, patient also has severe COPD & is likely a chronic CO2 retainer so alkalosis could be in response to CO2 retention as well. - Will continue to monitor respiratory status closely and correct electrolyte abnormalities PRN. Acute CHF exacerbation: - Uncertain etiology but patient has known h/o medication noncompliance. Could also be 2/2 diet noncompliance too. - Will initiate diuresis w/ ENRIQUE bumex & metolazone in the AM pending AM K level is WNLS. - Will continue supplemental O2 & wean to baseline requirements as tolerated by the patient. - QD weights and 1.5L fluid restriction QD. Strict I&Os. Hypokalemia: - Aware, K 2.4 on admission. Likely 2/2 medications. - s/p 40mEq IV & PO in the ED. Repeat pending for this AM. Will resume home dosing once WNLs but continue to monitor & replace PRN. HypoMg: - Mg 1.4 on presentation. s/p 2g IV Mg in the ED. Repeat pending this AM. Will resume home meds once corrected but continue to monitor & replace PRN. Hypochloremia: - Likely 2/2 IC shifts from metabolic alkalosis and/or some dilutional component from fluid overload. Will continue to monitor & anticipate improvement w/ diuresis. RADHA on CKD III: - Likely cardiorenal in origin and will therefore improve with diuresis. - Will continue to monitor closely and start diuresing once K closer to normal range. Microcytic anemia: - Hgb within baseline limits at 11 on presentation. Patient varies between normocytic & microcytic per chart review. - Would consider Fe studies if none have been recently done as this could also be contributing to her SOB. HFpEF: - Aware, in acute exacerbation. Will resume home meds & treat as noted above. COPD: - Aware, patient requiring more O2 than normal now 2/2 volume overload from CHF exacerbation. - Will continue home meds. DMII: - Aware, will resume home meds. ACHS accuchecks and mild SSI. hypothyroidism: - Aware, will resume home meds. MDD: - Aware, will resume home meds. Chronic pain/fibromyalgia: - Aware, will resume home meds. CHRIS: - Will start on CPAP. GERD: - Aware, will resume home meds. HTN: - Aware, will resume home meds. HLD: - Aware, will resume home meds. PVD: - Aware, will resume home meds. h/o atrial flutter: - Aware, patient is s/p ablation. Will resume home meds. Pulmonary HTN: - Aware, will continue supplemental O2. tobacco use: - Aware, nicotine patch ordered. Will encourage cessation. FMR H&P: Upper Level - Pertinent history Patient is a 53 yo female here for shortness of breath for the past 2 weeks, progressive. Initially on admission she was at 75% on RA. Normally she has nasal canula 3liters at home. She also has a history of urinary retention for which she caths herself. 1ppd smoker, 50pk year smoker. ECHO (10/20/18): EF 60-65%; grade 1/3 diastolic dysfxn; severely dilated RV with reduced RV systolic function In the ER she was given magnesium, duoneb, methylprednisolone, KCl 40mg po and IV - Pertinent findings 146/91 HR: 85 90-92% on 3L NC CXR: stable cardiomegaly and chronic lung changes BNP: 1015 K: 2.4 7.58/46.6/76.2 GEN: lethargic, initially on bipap, then changed to nasal canula CARD: RRR PULM: poor effort, often falling asleep; CTA EXT: 2+ pitting edema to the knees bilateral - Plan Date/Time: 11/04/18 [id number] Dario Peguero DO, have evaluated this patient and agree with findings/plan as outlined by cad intern resident. Pertinent changes/additions are listed here. #acute on chronic respiratory distress 2/2 CHF exacerbation -currently tolerating NC 4L; will wean down as tolerated -patient might need to be on bipap if she does not tolerate NC at 88% #CHF exacerbation -elevated BNP along with imaging and clinical course -cannot give Lasix right now due to hypokalemia -will replace K+ and hopefully be able to give Lasix to help remove some water -will fluid restrict and check weights daily, strict i/o -there were some issues early with the patient having low oxygen saturation readings in the 70s, but this was likely poor reading from the machine as she was always reading in the upper 80s to low 90s when the waveform read appropriate #metabolic alkalosis #hypokalemia -replace via IV and oral -recheck with morning labs #hyperbili -similar picture to CHF admission at previous visit earlier this year -continue to trend #hyponatremia -fluid restriction #microcytic anemia -consider blood panel checking TIBC, ferritin, etc
[2018-11-04] MEDS ORDERED: Potassium Chloride 40 MEQ in Sodium Chloride 0.9% 250 ML 250 ML IVPB SCH (23:30)
[2018-11-05] MEDS ORDERED: Dextrose 5% in Water 1,000 ML IV PRN (07:02)
[2018-11-05] MEDS ORDERED: PROVENTIL INHALER 6.7 G (200 INHALATIONS) INH PRN (07:02)
[2018-11-05] MEDS ORDERED: Albuterol Sulfate 1.25 MG/3 ML NEB NEB PRN (07:02)
[2018-11-05] MEDS ORDERED: HumaLOG 300 UNITS/3 ML VIAL SC PRN (07:02)
[2018-11-05] MEDS ORDERED: Dextrose 50% Abboject 50 ML SYRINGE SLOW IVP PRN (07:02)
[2018-11-05] MEDS ORDERED: Senokot S 8.6-50 MG TAB PO PRN (07:02)
[2018-11-05 07:54] LABS: BUN (Urea Nitrogen) 53 mg/dL (9.8-20.1); Calc. Creatinine Clearance 0 mL/min (70-130); Calcium 9.8 mg/dL (7.8-10.44); Estimated GFR-MDRD 52; Glucose 161 mg/dL (70-105)
[2018-11-05] MEDS ORDERED: LIRAGLUTIDE SC SCH (08:00)
[2018-11-05] MEDS ORDERED: [UNRECOGNIZED DRUG - OTHER] SC SCH (08:00)
[2018-11-05] MEDS ORDERED: HumaLOG 300 UNITS/3 ML VIAL ONE (08:01)
[2018-11-05 08:04] LABS: Anion Gap 22 mmol/L (10-20); Carbon Dioxide 35 mmol/L (22-29); Chloride 79 mmol/L (98-107); Sodium 133 mmol/L (136-145)
[2018-11-05] MEDS: metFORMIN 500 MG TAB PO SCH ×2 (08:05→18:48)
[2018-11-05] MEDS: Spironolactone 25 MG TAB PO SCH (08:05)
[2018-11-05] MEDS: Nicotine 21 MG PATCH TD SCH (08:05)
[2018-11-05] MEDS: Atorvastatin Calcium 40 MG TAB PO SCH (08:06)
[2018-11-05] MEDS: Aspirin 81 mg Enteric Coated Tablet PO SCH (08:06)
[2018-11-05] MEDS: Metolazone 5 MG TAB PO SCH (08:06)
[2018-11-05] MEDS: Bumetanide 1 MG TAB PO SCH ×2 (08:07→22:05)
[2018-11-05] MEDS: Magnesium Oxide 400 MG TAB PO SCH (08:08)
[2018-11-05] MEDS: DULoxetine 30 MG CAP PO SCH ×2 (08:08→22:04)
[2018-11-05] MEDS: predniSONE 5 MG TAB PO SCH (08:09)
[2018-11-05] MEDS: Digoxin 0.125 MG TAB PO SCH (08:16)
[2018-11-05] MEDS: HumaLOG 300 UNITS/3 ML VIAL SC PRN ×2 (08:22→11:27)
[2018-11-05 08:24] LABS: Potassium 2.8 mmol/L (3.5-5.1)
[2018-11-05] MEDS ORDERED: Enoxaparin Sodium 40 MG/0.4 ML SYRINGE ONE (08:25)
[2018-11-05] MEDS: Enoxaparin Sodium 40 MG/0.4 ML SYRINGE SC SCH (08:26)
[2018-11-05] MEDS ORDERED: Potassium Chloride 20 MEQ TAB ONE (08:29)
[2018-11-05] MEDS: Gabapentin 300 MG CAP PO SCH ×3 (08:30→22:03)
[2018-11-05] MEDS: Potassium Chloride 20 MEQ TAB PO SCH ×2 (08:30→22:04)
[2018-11-05] MEDS ORDERED: Potassium Chloride 20 MEQ TAB PO SCH (08:45)
[2018-11-05] MEDS ORDERED: Furosemide 40 MG/4 ML VIAL SLOW IVP SCH (09:15)
[2018-11-05] MEDS ORDERED: Furosemide 40 MG/4 ML VIAL ONE (09:39)
[2018-11-05] MEDS ORDERED: Bumetanide 1 MG/4 ML VIAL IVP SCH (11:00)
--- NOTE | 2018-11-05 12:00 | PDOC.FM ---
- Subjective Subjective: Ms. Valdovinos reports feeling and breathing better this morning. Denied SOB. - Objective Vital Signs & Weight: Vital Signs (12 hours) Temp Pulse Resp BP Pulse Ox 11/05/18 10:58 98.2 F 89 18 105/66 96 11/05/18 08:16 92 11/05/18 07:57 98.1 F 92 19 123/68 92 L Weight Weight 72.575 kg Result Diagrams: 11/04/18 22:20 11/05/18 07:10 Phys Exam - Physical Examination Constitutional: NAD diffuse crackles Cardiovascular: RRR, no significant murmur Gastrointestinal: soft, non-tender, positive bowel sounds 3+ pitting edema BLE Neurological: non-focal Dx/Plan (1) Acute and chronic respiratory failure with hypoxia Code(s): J96.21 - ACUTE AND CHRONIC RESPIRATORY FAILURE WITH HYPOXIA Status: Acute (2) CHF exacerbation Code(s): I50.9 - HEART FAILURE, UNSPECIFIED Status: Acute (3) Hypokalemia Code(s): E87.6 - HYPOKALEMIA Status: Acute (4) CKD (chronic kidney disease), stage III Code(s): N18.3 - CHRONIC KIDNEY DISEASE, STAGE 3 (MODERATE) Status: Chronic (5) COPD (chronic obstructive pulmonary disease) Status: Chronic Qualifiers: (6) Diabetes mellitus, type II Status: Chronic Qualifiers: Diabetes mellitus mcc insulin use: without termite control representative use Chronic kidney disease stage: stage 3 (moderate) (7) Fibromyalgia Status: Chronic (8) GERD (gastroesophageal reflux disease) Code(s): K21.9 - GASTRO-ESOPHAGEAL REFLUX DISEASE WITHOUT ESOPHAGITIS Status: Chronic (9) Hyperlipidemia Code(s): E78.5 - HYPERLIPIDEMIA, UNSPECIFIED Status: Chronic (10) Hypertension Code(s): I10 - ESSENTIAL (PRIMARY) HYPERTENSION Status: Chronic (11) Major depressive disorder Code(s): F32.9 - MAJOR DEPRESSIVE DISORDER, SINGLE EPISODE, UNSPECIFIED Status : Chronic (12) Pulmonary hypertension Code(s): I27.2 - OTHER SECONDARY PULMONARY HYPERTENSION * DO NOT USE * Status : Chronic (13) Tobacco abuse Code(s): Z72.0 - TOBACCO USE Status: Chronic - Plan Plan: Acute on chronic hypoxic respiratory failure likely 2/2 an acute CHF exacerbation: - Patient requiring increase in nasal canula O2 from 3L to at least 5L to maintain sats >88%. Initially presented with metabolic alkalosis and respiratory acidosis - CXR read as stable w/ chronic lung changes but on comparison to last CXR may have some pulmonary edema. Patient did also appear volume overloaded on exam. - Stable on 5L NC, will wean as tolerated. Diuresis as below. Acute CHF exacerbation: - Could be 2/2 diet and medication noncompliance - Will initiate diuresis w/ ENRIQUE bumex & metolazone in the AM pen - QD weights and 1.5L fluid restriction QD. Strict I&Os. - got 1mg IV bumex this am. Continue home bumex 4mg BID, and also metolazone. Will monitor I/Os as none were recorded overnight and adjust as needed. Hypokalemia: - Aware, K 2.4-->2.8. Likely 2/2 medications. - got another 40meq this am in addition to home 40meq BID. Will recheck K+ @ 1500 today to reassess HypoMg: - Mg 1.4 on presentation. s/p 2g IV Mg in the ED. Repeat pending this AM. Will resume home meds once corrected but continue to monitor & replace PRN. Hypochloremia: - Likely 2/2 IC shifts from metabolic alkalosis and/or some dilutional component from fluid overload. Will continue to monitor & anticipate improvement w/ diuresis. RADHA on CKD III: - Likely cardiorenal in origin and will therefore improve with diuresis. - Will continue to monitor closely and start diuresing once K closer to normal range. Microcytic anemia: - Hgb within baseline limits at 11 on presentation. Patient varies between normocytic & microcytic per chart review. - Would consider Fe studies if none have been recently done as this could also be contributing to her SOB. COPD: - Aware, patient requiring more O2 than normal now 2/2 volume overload from CHF exacerbation. - Will continue home meds. DMII: - Aware, will resume home meds. ACHS accuchecks and mild SSI. hypothyroidism: - Aware, will resume home meds. MDD: - Aware, will resume home meds. Chronic pain/fibromyalgia: - Aware, will resume home meds. CHRIS: - Will start on CPAP. GERD: - Aware, will resume home meds. HTN: - Aware, will resume home meds. HLD: - Aware, will resume home meds. PVD: - Aware, will resume home meds. h/o atrial flutter: - Aware, patient is s/p ablation. Will resume home meds. Pulmonary HTN: - Aware, will continue supplemental O2. tobacco use: - Aware, nicotine patch ordered. Will encourage cessation. Dispo: pending clinical improvement
[2018-11-05] MEDS: Ipratropium Bromide 2.5 ml Neb NEB SCH ×2 (14:58→19:14)
[2018-11-05 15:30] LABS: BUN (Urea Nitrogen) 50 mg/dL (9.8-20.1); Calc. Creatinine Clearance 69 mL/min (70-130); Calcium 9.9 mg/dL (7.8-10.44); Estimated GFR-MDRD 53; Glucose 139 mg/dL (70-105)
[2018-11-05 15:35] LABS: Carbon Dioxide Greater than 37 mmol/L (22-29); Chloride 80 mmol/L (98-107); Potassium 2.9 mmol/L (3.5-5.1); Sodium 134 mmol/L (136-145)
[2018-11-05] MEDS ORDERED: Potassium Chloride 40 MEQ in Sodium Chloride 0.9% 250 ML 250 ML IVPB SCH (17:00)
[2018-11-05 17:03] VITALS: BMI 32.4
[2018-11-06] MEDS: Ipratropium Bromide 2.5 ml Neb NEB SCH ×4 (00:30→19:02)
[2018-11-06 06:13] LABS: Anion Gap 18 mmol/L (10-20); BUN (Urea Nitrogen) 46 mg/dL (9.8-20.1); Calc. Creatinine Clearance 70 mL/min (70-130); Calcium 9.6 mg/dL (7.8-10.44); Carbon Dioxide 37 mmol/L (22-29); Chloride 81 mmol/L (98-107); Estimated GFR-MDRD 45; Glucose 173 mg/dL (70-105); Magnesium 1.7 mg/dL (1.6-2.6); Sodium 133 mmol/L (136-145)
[2018-11-06 06:17] LABS: Potassium 2.9 mmol/L (3.5-5.1)
--- NOTE | 2018-11-06 06:25 | PDOC.FM ---
- Subjective Subjective: Patient reports her swelling has improved in her abdomen as well as her legs. Otherwise no pain this AM. - Objective Vital Signs & Weight: Vital Signs (12 hours) Temp Pulse Resp BP Pulse Ox 11/06/18 05:00 98 F 98 28 H 11/06/18 00:30 86 14 94 L 11/05/18 20:00 98.3 F 96 16 113/55 L 96 11/05/18 19:14 95 14 88 L Weight Weight 87.543 kg I&O: 11/04/18 11/05/18 11/06/18 05:59 06:59 06:59 Intake Total 820 Output Total 1080 Balance -260 Result Diagrams: 11/04/18 22:20 11/06/18 05:17 Phys Exam - Physical Examination Constitutional: NAD HEENT: PERRLA, moist MMs diminished breath sounds at the bases Cardiovascular: RRR, no significant murmur Gastrointestinal: soft +distention 1+ pitting edema BLE Neurological: moves all 4 limbs Psychiatric: normal affect, A&O x 3 Skin: normal turgor, cap refill <2 seconds Dx/Plan (1) Acute and chronic respiratory failure with hypoxia Code(s): J96.21 - ACUTE AND CHRONIC RESPIRATORY FAILURE WITH HYPOXIA Status: Acute (2) COPD (chronic obstructive pulmonary disease) Status: Chronic (3) CHF exacerbation Code(s): I50.9 - HEART FAILURE, UNSPECIFIED Status: Acute (4) CKD (chronic kidney disease), stage III Code(s): N18.3 - CHRONIC KIDNEY DISEASE, STAGE 3 (MODERATE) Status: Chronic (5) Diabetes mellitus, type II Status: Chronic Qualifiers: Diabetes mellitus manager long term care insulin use: without manager long term care use Chronic kidney disease stage: stage 3 (moderate) (6) Fibromyalgia Status: Chronic (7) GERD (gastroesophageal reflux disease) Code(s): K21.9 - GASTRO-ESOPHAGEAL REFLUX DISEASE WITHOUT ESOPHAGITIS Status: Chronic (8) History of atrial flutter Code(s): Z86.79 - PERSONAL HISTORY OF OTHER DISEASES OF THE CIRCULATORY SYSTEM Status: Chronic (9) Hx of past noncompliance Code(s): Z91.19 - PATIENT'S NONCOMPLIANCE W OTH MEDICAL TREATMENT AND REGIMEN Status: Chronic (10) Hyperlipidemia Code(s): E78.5 - HYPERLIPIDEMIA, UNSPECIFIED Status: Chronic (11) Hypertension Code(s): I10 - ESSENTIAL (PRIMARY) HYPERTENSION Status: Chronic (12) Major depressive disorder Code(s): F32.9 - MAJOR DEPRESSIVE DISORDER, SINGLE EPISODE, UNSPECIFIED Status : Chronic (13) Nicotine dependence Code(s): F17.200 - NICOTINE DEPENDENCE, UNSPECIFIED, UNCOMPLICATED Status: Chronic (14) PVD (peripheral vascular disease) with claudication Code(s): I73.9 - PERIPHERAL VASCULAR DISEASE, UNSPECIFIED Status: Chronic (15) Pulmonary hypertension Code(s): I27.2 - OTHER SECONDARY PULMONARY HYPERTENSION * DO NOT USE * Status : Chronic - Plan Plan: Acute on chronic hypoxic respiratory failure likely 2/2 an acute CHF exacerbation: - Patient requiring increase in nasal canula O2 from 3L to at least 5L to maintain sats >88%. Initially presented with metabolic alkalosis and respiratory acidosis - CXR read as stable w/ chronic lung changes but on comparison to last CXR may have some pulmonary edema. Patient did also appear volume overloaded on exam. - Stable on 5L NC, will wean as tolerated. Diuresis as below. Acute CHF exacerbation: - Could be 2/2 diet and medication noncompliance - Continue ENRIQUE bumex & metolazone in the AM - QD weights and 1.5L fluid restriction QD. - Continue home bumex 4mg BID, and also metolazone. - Will monitor strict I/Os Hypokalemia: - Aware, K 2.4-->2.8. Likely 2/2 medications. - Monitor and replace HypoMg, resolved: - Mg 1.4 on presentation. s/p 2g IV Mg in the ED. - Continue to monitor & replace PRN. Hypochloremia: - Likely 2/2 IC shifts from metabolic alkalosis and/or some dilutional component from fluid overload. Will continue to monitor & anticipate improvement w/ diuresis. RADHA on CKD III: - Likely cardiorenal in origin and will therefore improve with diuresis. Microcytic anemia: - Hgb within baseline limits at 11 on presentation. Patient varies between normocytic & microcytic per chart review. COPD: - Aware, patient requiring more O2 than normal now 2/2 volume overload from CHF exacerbation. - Will continue home meds. DMII: - Aware, will resume home meds. ACHS accuchecks and mild SSI. Hypothyroidism: - Aware, will resume home meds. MDD: - Aware, will resume home meds. Chronic pain/fibromyalgia: - Aware, will resume home meds. CHRIS: - Will start on CPAP. GERD: - Aware, will resume home meds. HTN: - Aware, will resume home meds. HLD: - Aware, will resume home meds. PVD: - Aware, will resume home meds. h/o atrial flutter: - Aware, patient is s/p ablation. Will resume home meds. Pulmonary HTN: - Aware, will continue supplemental O2. Tobacco use: - Aware, nicotine patch ordered. Will encourage cessation. Dispo: pending clinical improvement Code status: Full Diet: HH, CC, fluid restrict 1500 ml/day
[2018-11-06] MEDS ORDERED: Potassium Chloride 40 MEQ in Premix Bag 1 BAG IVPB SCH (06:30)
[2018-11-06] MEDS ORDERED: Potassium Chloride 40 MEQ in Sodium Chloride 0.9% 250 ML 250 ML IVPB SCH ×2 (07:00→16:00)
[2018-11-06] MEDS ORDERED: Magnesium Oxide 400 MG TAB PO SCH (09:15)
--- NOTE | 2018-11-06 09:21 | HP ---
ADDENDUM: Please see the note from Dr. Gunjan Doherty, for which I agree. The patient really a 53-year-old with known COPD and preserved ejection fraction, diastolic dysfunction, and heart failure, who comes in with worsening shortness of breath and is generally volume overloaded. In the ER, immediately she was on BiPAP in 5 L nasal cannula. Potassium is extremely low. It is unclear why this all happened. She has had some problems with diuretics before and being admitted for CHF. PAST MEDICAL HISTORY: Per the residents history and physical, for which I agree. PAST SURGICAL HISTORY: Per the residents history and physical, for which I agree. FAMILY HISTORY: Per the residents history and physical, for which I agree. SOCIAL HISTORY: Per the residents history and physical, for which I agree. REVIEW OF SYSTEMS: Per the residents history and physical, for which I agree. PHYSICAL EXAMINATION: VITAL SIGNS: Blood pressure is okay, O2 saturations lower 90% on about 5 L right now. GENERAL: Does not appear to be in major respiratory distress. Alert and oriented x3, appropriate. HEENT: Within normal limits. NECK: No lymphadenopathy or thyromegaly. CHEST: Has decreased breath sounds throughout, I do not appreciate that much crackles. HEART: Regular rate and rhythm. ABDOMEN: Benign. EXTREMITIES: Showed trace edema. LABORATORY DATA: Blood work revealed extremely low potassium 2.8 and bicarb a bit high at 35. White count is not elevated. Chest x-ray shows a little bit of volume overload. ASSESSMENT AND PLAN: 1. Respiratory distress likely mixture of both chronic obstructive pulmonary disease and mostly volume overload from diastolic congestive heart failure. Plan is to continue nebs, diuresis, definitely replacement of potassium and volume restrict and we will watch closely. 2. Hypokalemia, replace. 3. Hypomagnesemia, replace. 4. Chronic renal insufficiency, slight worsening. We will follow closely. 5. Chronic anemia. 6. Tobacco abuse, counseled. 7. Numerous other medical problems including diabetes, hypothyroidism, reflux, hypertension, and hyperlipidemia. We will continue home medicines on those. Job ID: [id number]
[2018-11-06] MEDS: metFORMIN 500 MG TAB PO SCH ×2 (09:27→16:32)
[2018-11-06] MEDS: Metolazone 5 MG TAB PO SCH (09:27)
[2018-11-06] MEDS: Spironolactone 25 MG TAB PO SCH (09:27)
[2018-11-06] MEDS: Atorvastatin Calcium 40 MG TAB PO SCH (09:28)
[2018-11-06] MEDS: Aspirin 81 mg Enteric Coated Tablet PO SCH (09:28)
[2018-11-06] MEDS: Bumetanide 1 MG TAB PO SCH ×2 (09:28→20:40)
[2018-11-06] MEDS: DULoxetine 30 MG CAP PO SCH ×2 (09:28→20:41)
[2018-11-06] MEDS: Digoxin 0.125 MG TAB PO SCH (09:28)
[2018-11-06] MEDS: Magnesium Oxide 400 MG TAB PO SCH (09:28)
[2018-11-06] MEDS: Gabapentin 300 MG CAP PO SCH ×3 (09:28→20:41)
[2018-11-06] MEDS: predniSONE 5 MG TAB PO SCH (09:29)
[2018-11-06] MEDS: Potassium Chloride 20 MEQ TAB PO SCH ×2 (09:29→20:42)
[2018-11-06] MEDS: Enoxaparin Sodium 40 MG/0.4 ML SYRINGE SC SCH (09:29)
[2018-11-06] MEDS: Nicotine 21 MG PATCH TD SCH (09:35)
[2018-11-06] MEDS ORDERED: Sodium Chloride 0.9% 250 ML IV SCH (11:45)
--- NOTE | 2018-11-06 12:22 | PRG ---
DATE OF SERVICE: This Ms. Valdovinos is a pleasant 53-year-old lady with a history of advanced pulmonary hypertension and cor pulmonale. She was admitted with worsening shortness of breath. She was also noted to have abnormal ABG with a bicarb of 43, pH 7.58, pCO2 of 46.6, and a pO2 of 76.2. In the past reviewing her ABGs, her pCO2 has actually been in the mid 50s, suggesting that she is possibly hyperventilating. We will go ahead and repeat a CTA to ensure that she has not had a PE. She had a normal CTA at the end of July of last year. We are also continuing very judicious fluid management for her cor pulmonale. Job ID: [id number]
[2018-11-06] MEDS: HYDROcodone/Acetaminophen 10/325 mg Tablet PO PRN ×2 (14:05→20:42)
[2018-11-06 14:20] LABS: BUN (Urea Nitrogen) 43 mg/dL (9.8-20.1); Calc. Creatinine Clearance 82 mL/min (70-130); Calcium 9.8 mg/dL (7.8-10.44); Estimated GFR-MDRD 52; Glucose 137 mg/dL (70-105)
[2018-11-06 14:30] LABS: Anion Gap 19 mmol/L (10-20); Carbon Dioxide 37 mmol/L (22-29); Chloride 82 mmol/L (98-107); Sodium 135 mmol/L (136-145)
[2018-11-06 14:36] LABS: Potassium 2.9 mmol/L (3.5-5.1)
--- NOTE | 2018-11-06 15:18 | CT ---
CTA CHEST WITH CONTRAST WITH 3D VOLUME RENDERING: INDICATIONS: Short of breath with chest pain, new onset. FINDINGS: There is enlargement of the pulmonary arterial system. No significant filling defect is seen to tamar sharon acute pulmonary embolus. There is vascular disease. There is diffuse interstitial prominence o f the pulmonary parenchyma bilaterally with evidence of emphysema. Multifocal interstitial as well a s reticulonodular and ground glass opacities are present throughout each lung. No pleural fluid. No pneumothorax. The partially imaged liver demonstrates a cirrhotic morphology with perihepatic ascit es seen. There is prominence of central abdominal lymph nodes at the upper abdomen, incompletely elizabeth luated. Prominent vascular disease is seen within the abdominal aorta. Hepatic vein contrast could relate to sequela from right heart strain with passive congestion. IMPRESSION: 1. No acute pulmonary embolus. 2. Prominent sized pulmonary arteries, which can be seen in the setting of pulmonary artery hyperten mary. Correlate clinically. 3. Cirrhotic liver with perihepatic ascites, incompletely assessed. 4. Nonspecific lymph node prominence at the upper abdomen, incompletely visualized. 5. Pulmonary emphysema. There is bilateral interstitial reticulonodularity. Given the nodular comp onent, a dedicated CT thorax as followup is warranted to document resolution, in order to exclude und erlying neoplastic nodules. CODE T POS: IAM
[2018-11-06] MEDS ORDERED: Iopamidol 370 76% 100 ML VIAL ONE (16:29)
[2018-11-07] MEDS: Ipratropium Bromide 2.5 ml Neb NEB SCH (00:24)
[2018-11-07] MEDS: HYDROcodone/Acetaminophen 10/325 mg Tablet PO PRN ×2 (03:31→18:05)
[2018-11-07 05:29] LABS: #Basophils 0.1 thou/uL (0.0-0.2); #Eosinphils 0.1 thou/uL (0.0-0.7); #Monocytes 0.5 thou/uL (0.11-0.59); #Neutrophils 3.4 thou/uL (1.40-6.50); %Basophils 0.9 % (0.0-1.0); %Eosinophils 1.3 % (0.0-10.0); %Lymphocytes 49.2 % (21.0-51.0); %Monocytes 6.7 % (0.0-10.0); %Neutrophils 41.9 % (42.0-75.0); Hemoglobin 10.9 g/dL (12.0-16.0); Mean Corpuscular HGB CONC 28.3 g/dL (32.0-36.0); Mean Corpuscular Hemoglobin 21.4 pg (27.0-31.0); Mean Corpuscular Volume 75.9 fL (78.0-98.0); Mean Platelet Volume 7.9 fL (7.4-10.4); Platelet Count 141 thou/uL (130-400); Red Blood Cell (RBC) Count 5.09 mill/uL (4.20-5.40); White Blood Cell (WBC) Count 8.1 thou/uL (4.8-10.8)
[2018-11-07 05:39] LABS: BUN (Urea Nitrogen) 45 mg/dL (9.8-20.1); Calc. Creatinine Clearance 77 mL/min (70-130); Calcium 9.7 mg/dL (7.8-10.44); Estimated GFR-MDRD 49; Glucose 161 mg/dL (70-105)
[2018-11-07 05:41] LABS: Potassium 2.5 mmol/L (3.5-5.1)
[2018-11-07 05:47] LABS: Anion Gap 18 mmol/L (10-20); Carbon Dioxide 38 mmol/L (22-29); Chloride 82 mmol/L (98-107); Sodium 135 mmol/L (136-145)
--- NOTE | 2018-11-07 07:30 | PDOC.FM ---
- Subjective Subjective: Reports her SOB is much improved this morning. Reports her potassium IV really was hurting her last night. Reports constipation. - Objective Vital Signs & Weight: Vital Signs (12 hours) Temp Pulse Resp BP Pulse Ox 11/07/18 04:32 98.8 F 100 20 115/63 92 L 11/07/18 00:24 85 14 90 L 11/06/18 21:00 98 F 94 16 107/63 94 L 11/06/18 20:25 94 L Weight Weight 82.508 kg I&O: 11/06/18 11/07/18 11/08/18 06:59 06:59 06:59 Intake Total 820 1300 Output Total 1080 4825 Balance -260 -6599 Result Diagrams: 11/07/18 04:52 11/07/18 04:52 Phys Exam - Physical Examination Constitutional: NAD Neck: no nodes, supple rhales bilat lower bases, improved from yesterday Cardiovascular: no significant murmur irregular rhythm Gastrointestinal: soft, non-tender, positive bowel sounds +distention Musculoskeletal: pulses present, edema present 2+ pitting edema bilat Neurological: non-focal, moves all 4 limbs Psychiatric: normal affect, A&O x 3 Skin: normal turgor, cap refill <2 seconds Dx/Plan (1) Acute and chronic respiratory failure with hypoxia Code(s): J96.21 - ACUTE AND CHRONIC RESPIRATORY FAILURE WITH HYPOXIA Status: Acute (2) COPD (chronic obstructive pulmonary disease) Status: Chronic (3) CHF exacerbation Code(s): I50.9 - HEART FAILURE, UNSPECIFIED Status: Acute (4) CKD (chronic kidney disease), stage III Code(s): N18.3 - CHRONIC KIDNEY DISEASE, STAGE 3 (MODERATE) Status: Chronic (5) Diabetes mellitus, type II Status: Chronic Qualifiers: Diabetes mellitus rat exterminator insulin use: without rat exterminator use Chronic kidney disease stage: stage 3 (moderate) (6) Fibromyalgia Status: Chronic (7) GERD (gastroesophageal reflux disease) Code(s): K21.9 - GASTRO-ESOPHAGEAL REFLUX DISEASE WITHOUT ESOPHAGITIS Status: Chronic (8) History of atrial flutter Code(s): Z86.79 - PERSONAL HISTORY OF OTHER DISEASES OF THE CIRCULATORY SYSTEM Status: Chronic (9) Hx of past noncompliance Code(s): Z91.19 - PATIENT'S NONCOMPLIANCE W OTH MEDICAL TREATMENT AND REGIMEN Status: Chronic (10) Hyperlipidemia Code(s): E78.5 - HYPERLIPIDEMIA, UNSPECIFIED Status: Chronic (11) Hypertension Code(s): I10 - ESSENTIAL (PRIMARY) HYPERTENSION Status: Chronic (12) Major depressive disorder Code(s): F32.9 - MAJOR DEPRESSIVE DISORDER, SINGLE EPISODE, UNSPECIFIED Status : Chronic (13) Nicotine dependence Code(s): F17.200 - NICOTINE DEPENDENCE, UNSPECIFIED, UNCOMPLICATED Status: Chronic (14) PVD (peripheral vascular disease) with claudication Code(s): I73.9 - PERIPHERAL VASCULAR DISEASE, UNSPECIFIED Status: Chronic (15) Pulmonary hypertension Code(s): I27.2 - OTHER SECONDARY PULMONARY HYPERTENSION * DO NOT USE * Status : Chronic - Plan Plan: Acute on chronic hypoxic respiratory failure likely 2/2 an acute CHF exacerbation, improving: - Patient requiring increase in nasal canula O2 from 3L to at least 5L to maintain sats >88%. Initially presented with metabolic alkalosis and respiratory acidosis - CXR read as stable w/ chronic lung changes but on comparison to last CXR may have some pulmonary edema. Patient did also appear volume overloaded on exam. - Just weaned to 3L NC, was at 4L overnight briefly, will monitor. Diuresis as below. - PE ruled out with CTA chest 11/06 Acute CHF exacerbation, improving: - Could be 2/2 diet and medication noncompliance - Continue ENRIQUE bumex & metolazone in the AM - QD weights and 1.5L fluid restriction QD. - Continue home bumex 4mg BID, and also metolazone. - Will monitor strict I/Os Hypokalemia: - Aware, K 2.4-->2.8 -> 2.5. Likely 2/2 medications. - Monitor and replace - added an extra 40 meq IV, 40 meq PO this AM in addition to regular 40 meq BID- WM - Repeat BMP @ 1000 HypoMg, resolved: - Mg 1.4 on presentation. s/p 2g IV Mg in the ED. - Continue to monitor & replace PRN. Hypochloremia: - Likely 2/2 IC shifts from metabolic alkalosis and/or some dilutional component from fluid overload. Will continue to monitor & anticipate improvement w/ diuresis. RADHA on CKD III: - Likely cardiorenal in origin and will therefore improve with diuresis. Microcytic anemia: - Hgb within baseline limits at 11 on presentation. Patient varies between normocytic & microcytic per chart review. COPD: - Aware, patient requiring more O2 than normal now 2/2 volume overload from CHF exacerbation. - Will continue home meds. DMII: - Aware, will resume home meds. ACHS accuchecks and mild SSI. Hypothyroidism: - Aware, will resume home meds. MDD: - Aware, will resume home meds. Chronic pain/fibromyalgia: - Aware, will resume home meds. CHRIS: - Will start on CPAP. GERD: - Aware, will resume home meds. HTN: - Aware, will resume home meds. HLD: - Aware, will resume home meds. PVD: - Aware, will resume home meds. h/o atrial flutter: - Aware, patient is s/p ablation. Will resume home meds. Pulmonary HTN: - Aware, will continue supplemental O2. Tobacco use: - Aware, nicotine patch ordered. Will encourage cessation. Constipation -Enrique sen/doc and colace Urinary retention -Catheter in place, will remove prior to D/c -Pt self-caths at home Dispo: pending clinical improvement Code status: Full Diet: HH, CC, fluid restrict 1500 ml/day
[2018-11-07] MEDS ORDERED: Potassium Chloride 40 MEQ in Sodium Chloride 0.9% 250 ML 250 ML IVPB SCH ×2 (08:00→14:45)
[2018-11-07] MEDS ORDERED: Potassium Chloride 20 MEQ TAB PO SCH (08:00)
[2018-11-07] MEDS: Bumetanide 1 MG TAB PO SCH ×2 (08:27→20:31)
[2018-11-07] MEDS: Digoxin 0.125 MG TAB PO SCH (08:27)
[2018-11-07] MEDS: Metolazone 5 MG TAB PO SCH (08:27)
[2018-11-07] MEDS: Potassium Chloride 20 MEQ TAB PO SCH ×3 (08:27→20:41)
[2018-11-07] MEDS: metFORMIN 500 MG TAB PO SCH ×2 (08:27→16:26)
[2018-11-07] MEDS: DULoxetine 30 MG CAP PO SCH ×2 (08:27→20:42)
[2018-11-07] MEDS: Gabapentin 300 MG CAP PO SCH ×3 (08:28→20:42)
[2018-11-07] MEDS: Atorvastatin Calcium 40 MG TAB PO SCH (08:28)
[2018-11-07] MEDS: Spironolactone 25 MG TAB PO SCH (08:28)
[2018-11-07] MEDS: predniSONE 5 MG TAB PO SCH (08:28)
[2018-11-07] MEDS: Magnesium Oxide 400 MG TAB PO SCH (08:28)
[2018-11-07] MEDS: Aspirin 81 mg Enteric Coated Tablet PO SCH (08:28)
[2018-11-07] MEDS: Enoxaparin Sodium 40 MG/0.4 ML SYRINGE SC SCH (08:29)
[2018-11-07] MEDS: Nicotine 21 MG PATCH TD SCH (08:29)
[2018-11-07] MEDS: Senokot S 8.6-50 MG TAB PO SCH ×2 (10:27→20:42)
[2018-11-07] MEDS: Docusate 100 MG CAP PO SCH ×2 (10:27→20:43)
--- NOTE | 2018-11-07 12:29 | PRG ---
DATE OF SERVICE: 11/07/2018 SUBJECTIVE: Ms. Valdovinos looks and feels much better this morning. She is still slightly short of breath, but not so much as yesterday. Her CTA of the thorax was negative for PE. I really believe most of her symptoms are related to probable end-stage cor pulmonale/pulmonary hypertension. We will continue with her O2 management. We are continuing judicious diuretics as well. Job ID: [id number]
[2018-11-07] MEDS ORDERED: Magnesium 2 GM/50 ML 2 GM in Premix Bag 1 BAG IVPB SCH (12:45)
[2018-11-07 14:09] LABS: BUN (Urea Nitrogen) 41 mg/dL (9.8-20.1); Calc. Creatinine Clearance 77 mL/min (70-130); Calcium 9.8 mg/dL (7.8-10.44); Estimated GFR-MDRD 52; Glucose 158 mg/dL (70-105)
[2018-11-07 14:18] LABS: Chloride 83 mmol/L (98-107); Sodium 136 mmol/L (136-145)
[2018-11-07 14:26] LABS: Anion Gap 18 mmol/L (10-20); Carbon Dioxide 37 mmol/L (22-29)
[2018-11-07 14:33] LABS: Potassium 2.9 mmol/L (3.5-5.1)
[2018-11-07] MEDS: HumaLOG 300 UNITS/3 ML VIAL SC PRN (17:21)
[2018-11-08] MEDS: HYDROcodone/Acetaminophen 10/325 mg Tablet PO PRN ×3 (02:38→21:23)
--- NOTE | 2018-11-08 06:15 | PDOC.FM ---
- Subjective Subjective: She reports she is feeling much better this morning. No complaints. - Objective Vital Signs & Weight: Vital Signs (12 hours) Temp Pulse Resp BP Pulse Ox 11/08/18 03:45 98.0 F 101 H 18 113/62 92 L 11/07/18 20:34 98.3 F 88 16 116/61 94 L 11/07/18 20:25 94 L Weight Weight 82.508 kg I&O: 11/06/18 11/07/18 11/08/18 06:59 06:59 06:59 Intake Total 820 1300 1600 Output Total 7913 2247 3525 Balance -368 -3520 -5995 Result Diagrams: 11/08/18 05:56 11/08/18 05:56 Phys Exam - Physical Examination Constitutional: NAD Respiratory: no wheezing improves rhales from yesterday Cardiovascular: RRR, no significant murmur Gastrointestinal: soft, non-tender, no distention, positive bowel sounds Musculoskeletal: pulses present 1+ pitting edema bilat Neurological: moves all 4 limbs Psychiatric: normal affect, A&O x 3 Skin: normal turgor Dx/Plan (1) Acute and chronic respiratory failure with hypoxia Code(s): J96.21 - ACUTE AND CHRONIC RESPIRATORY FAILURE WITH HYPOXIA Status: Acute (2) COPD (chronic obstructive pulmonary disease) Status: Chronic (3) CHF exacerbation Code(s): I50.9 - HEART FAILURE, UNSPECIFIED Status: Acute (4) CKD (chronic kidney disease), stage III Code(s): N18.3 - CHRONIC KIDNEY DISEASE, STAGE 3 (MODERATE) Status: Chronic (5) Diabetes mellitus, type II Status: Chronic Qualifiers: Diabetes mellitus terminal operator insulin use: without terminal operator use Chronic kidney disease stage: stage 3 (moderate) (6) Fibromyalgia Status: Chronic (7) GERD (gastroesophageal reflux disease) Code(s): K21.9 - GASTRO-ESOPHAGEAL REFLUX DISEASE WITHOUT ESOPHAGITIS Status: Chronic (8) History of atrial flutter Code(s): Z86.79 - PERSONAL HISTORY OF OTHER DISEASES OF THE CIRCULATORY SYSTEM Status: Chronic (9) Hx of past noncompliance Code(s): Z91.19 - PATIENT'S NONCOMPLIANCE W OTH MEDICAL TREATMENT AND REGIMEN Status: Chronic (10) Hyperlipidemia Code(s): E78.5 - HYPERLIPIDEMIA, UNSPECIFIED Status: Chronic (11) Hypertension Code(s): I10 - ESSENTIAL (PRIMARY) HYPERTENSION Status: Chronic (12) Major depressive disorder Code(s): F32.9 - MAJOR DEPRESSIVE DISORDER, SINGLE EPISODE, UNSPECIFIED Status : Chronic (13) Nicotine dependence Code(s): F17.200 - NICOTINE DEPENDENCE, UNSPECIFIED, UNCOMPLICATED Status: Chronic (14) PVD (peripheral vascular disease) with claudication Code(s): I73.9 - PERIPHERAL VASCULAR DISEASE, UNSPECIFIED Status: Chronic (15) Pulmonary hypertension Code(s): I27.2 - OTHER SECONDARY PULMONARY HYPERTENSION * DO NOT USE * Status : Chronic - Plan Plan: Acute on chronic hypoxic respiratory failure likely 2/2 an acute CHF exacerbation, improving: - Patient requiring increase in nasal canula O2 from 3L to at least 5L to maintain sats >88%. Initially presented with metabolic alkalosis and respiratory acidosis - CXR read as stable w/ chronic lung changes but on comparison to last CXR may have some pulmonary edema. Patient did also appear volume overloaded on exam. - Wean O2 to home 3L as tolerated, Diuresis as below. - PE ruled out with CTA chest 3/ Acute CHF exacerbation, improving: - Could be 2/2 diet and medication noncompliance - Continue ENRIQUE bumex & metolazone in the AM - QD weights and 1.5L fluid restriction QD. - Continue home bumex 4mg BID, metolazone discontinued - Will monitor strict I/Os Hypokalemia: - 2.5. Likely 2/2 medications. - Monitor and replace - Increased to 80 meq TID-WM - Recheck at 1400 HypoMg: - Continue to monitor & replace PRN. Hypochloremia: - Likely 2/2 IC shifts from metabolic alkalosis and/or some dilutional component from fluid overload. Will continue to monitor & anticipate improvement w/ diuresis. RADHA on CKD III: - Likely cardiorenal in origin and will therefore improve with diuresis. Microcytic anemia: - Hgb within baseline limits at 11 on presentation. Patient varies between normocytic & microcytic per chart review. COPD: - Aware, patient requiring more O2 than normal now 2/2 volume overload from CHF exacerbation. - Will continue home meds. DMII: - Aware, will resume home meds. ACHS accuchecks and mild SSI. Hypothyroidism: - home meds. MDD: - home meds. Chronic pain/fibromyalgia: - home meds. CHRIS: - CPAP. GERD: - home meds. HTN: - home meds. HLD: - home meds. PVD: - home meds. h/o atrial flutter: - Aware, patient is s/p ablation. - home meds. Pulmonary HTN: - Home 3L supplemental O2. Tobacco use: - nicotine patch ordered. -Will encourage cessation. Constipation -Enrique sen/doc and colace Urinary retention -Catheter in place, will remove prior to D/c -Pt self-caths at home Dispo: pending K >3.0 Code status: Full Diet: HH, CC, fluid restrict 1500 ml/day
[2018-11-08 06:26] LABS: #Basophils 0.1 thou/uL (0.0-0.2); #Eosinphils 0.2 thou/uL (0.0-0.7); #Lymphocytes 3.6 thou/uL (1.20-3.40); #Monocytes 0.5 thou/uL (0.11-0.59); #Neutrophils 4.1 thou/uL (1.40-6.50); %Basophils 1.5 % (0.0-1.0); %Eosinophils 1.9 % (0.0-10.0); %Lymphocytes 42.2 % (21.0-51.0); %Monocytes 6.3 % (0.0-10.0); %Neutrophils 48.1 % (42.0-75.0); Hemoglobin 11.2 g/dL (12.0-16.0); Mean Corpuscular HGB CONC 27.8 g/dL (32.0-36.0); Mean Corpuscular Hemoglobin 21.2 pg (27.0-31.0); Mean Corpuscular Volume 76.4 fL (78.0-98.0); Mean Platelet Volume 7.4 fL (7.4-10.4); Platelet Count 158 thou/uL (130-400); RBC Distribution Width 21.1 % (11.5-14.5); Red Blood Cell (RBC) Count 5.29 mill/uL (4.20-5.40); White Blood Cell (WBC) Count 8.5 thou/uL (4.8-10.8)
[2018-11-08 06:45] LABS: BUN (Urea Nitrogen) 36 mg/dL (9.8-20.1); Calc. Creatinine Clearance 73 mL/min (70-130); Calcium 9.8 mg/dL (7.8-10.44); Estimated GFR-MDRD 52; Glucose 189 mg/dL (70-105); Magnesium 1.6 mg/dL (1.6-2.6)
[2018-11-08 06:54] LABS: Chloride 83 mmol/L (98-107); Sodium 138 mmol/L (136-145)
[2018-11-08 06:56] LABS: Anion Gap 19 mmol/L (10-20); Carbon Dioxide 39 mmol/L (22-29)
[2018-11-08 07:00] LABS: Potassium 2.5 mmol/L (3.5-5.1)
[2018-11-08] MEDS: Nicotine 21 MG PATCH TD SCH (08:31)
[2018-11-08] MEDS: metFORMIN 500 MG TAB PO SCH ×2 (08:31→16:31)
[2018-11-08] MEDS: Enoxaparin Sodium 40 MG/0.4 ML SYRINGE SC SCH (08:31)
[2018-11-08] MEDS: DULoxetine 30 MG CAP PO SCH ×2 (08:31→21:24)
[2018-11-08] MEDS: Senokot S 8.6-50 MG TAB PO SCH ×2 (08:31→21:25)
[2018-11-08] MEDS: Docusate 100 MG CAP PO SCH ×2 (08:32→21:25)
[2018-11-08] MEDS: Potassium Chloride 20 MEQ TAB PO SCH ×3 (08:32→21:27)
[2018-11-08] MEDS: Atorvastatin Calcium 40 MG TAB PO SCH (08:32)
[2018-11-08] MEDS: Aspirin 81 mg Enteric Coated Tablet PO SCH (08:32)
[2018-11-08] MEDS: Spironolactone 25 MG TAB PO SCH (08:32)
[2018-11-08] MEDS: Magnesium Oxide 400 MG TAB PO SCH (08:32)
[2018-11-08] MEDS: Gabapentin 300 MG CAP PO SCH ×3 (08:32→21:24)
[2018-11-08] MEDS: Digoxin 0.125 MG TAB PO SCH (08:32)
[2018-11-08] MEDS: HumaLOG 300 UNITS/3 ML VIAL SC PRN (08:33)
[2018-11-08] MEDS: predniSONE 5 MG TAB PO SCH (08:33)
[2018-11-08] MEDS ORDERED: Potassium Chloride 20 MEQ TAB PO SCH ×5 (09:15→12:00)
[2018-11-08] MEDS ORDERED: Potassium Chloride 40 MEQ in Sodium Chloride 0.9% 250 ML 250 ML IVPB SCH (10:00)
[2018-11-08] MEDS: Bumetanide 1 MG TAB PO SCH (10:30)
--- NOTE | 2018-11-08 11:52 | PRG ---
DATE OF SERVICE: 11/08/2018 Ms. Valdovinos continues to look and feel much better this morning. We, however, are still having issues with her hypokalemia despite giving her rather high dosages of both p.o. and IV potassium. I would suggest we give her 10 mEq/hour IV and 40 mEq p.o. every 6 hours and reduce her Bumex at least for today. She is an extremely complicated lady given her cor pulmonale. We need to be careful in diuresing her and over diuresing her given her cor pulmonale. At this point, however, lungs are clear and she feels better. Job ID: [id number]
[2018-11-08 14:19] LABS: BUN (Urea Nitrogen) 34 mg/dL (9.8-20.1); Calc. Creatinine Clearance 85 mL/min (70-130); Calcium 10.1 mg/dL (7.8-10.44); Estimated GFR-MDRD 61; Glucose 134 mg/dL (70-105)
[2018-11-08 14:26] LABS: Potassium 3.5 mmol/L (3.5-5.1); Sodium 137 mmol/L (136-145)
[2018-11-08 14:27] LABS: Chloride 83 mmol/L (98-107)
[2018-11-08 14:50] LABS: Anion Gap 19 mmol/L (10-20); Carbon Dioxide 37 mmol/L (22-29)
[2018-11-08] MEDS ORDERED: Potassium Chloride 40 MEQ in Sodium Chloride 0.9% 250 ML 250 ML IVPB ONE (15:00)
[2018-11-08] MEDS ORDERED: Bumetanide 1 MG TAB PO SCH (17:00)
[2018-11-09] MEDS: HYDROcodone/Acetaminophen 10/325 mg Tablet PO PRN ×3 (04:39→21:07)
[2018-11-09 04:40] LABS: Actual Bicarbonate (HCO3v) 36 mEq/L (22-28); Analyzer IN Cardio OR; Base Excess 16.2 mEq/L (-2.0 to +3.0); Chloride (ABG LAB) 90 mmol/L (98-106); Hemoglobin (Hb) 11.7 g/dL (11.7-16.0); Sodium 133.8 mmol/L (133-146); pH (venous) 7.75 (7.32-7.43)
[2018-11-09] MEDS: Potassium Chloride 20 MEQ TAB PO SCH ×4 (04:40→21:02)
[2018-11-09 05:06] LABS: Anion Gap 17 mmol/L (10-20); BUN (Urea Nitrogen) 31 mg/dL (9.8-20.1); Calc. Creatinine Clearance 93 mL/min (70-130); Calcium 9.5 mg/dL (7.8-10.44); Carbon Dioxide 34 mmol/L (22-29); Chloride 88 mmol/L (98-107); Estimated GFR-MDRD 68; Glucose 152 mg/dL (70-105); Potassium 3.2 mmol/L (3.5-5.1); Sodium 136 mmol/L (136-145)
[2018-11-09 05:12] LABS: #Basophils 0.1 thou/uL (0.0-0.2); #Eosinphils 0.2 thou/uL (0.0-0.7); #Lymphocytes 3.5 thou/uL (1.20-3.40); #Monocytes 0.7 thou/uL (0.11-0.59); #Neutrophils 4.9 thou/uL (1.40-6.50); %Basophils 1.5 % (0.0-1.0); %Lymphocytes 36.9 % (21.0-51.0); %Monocytes 7.2 % (0.0-10.0); %Neutrophils 52.4 % (42.0-75.0); Hypochromia SLIGHT = 6-15 cells (100X) (0-5/hpf); MDiff Complete? YES; Mean Corpuscular HGB CONC 27.6 g/dL (32.0-36.0); Mean Corpuscular Hemoglobin 21.6 pg (27.0-31.0); Mean Corpuscular Volume 78.4 fL (78.0-98.0); Mean Platelet Volume 6.4 fL (7.4-10.4); Ovalocytes SLIGHT = 2-5 cells (100X) (0-1/hpf); Platelet Count 168 thou/uL (130-400); Platelet Morphology Comment Appears Adequate; RBC Distribution Width 21.5 % (11.5-14.5); Red Blood Cell (RBC) Count 5.07 mill/uL (4.20-5.40); White Blood Cell (WBC) Count 9.4 thou/uL (4.8-10.8)
--- NOTE | 2018-11-09 05:58 | PDOC.FM ---
- Subjective Subjective: Patient reports she had a bowel movement yesterday. States she is breathing well. No other complaints. Walked with PT yesterday. - Objective Vital Signs & Weight: Vital Signs (12 hours) Temp Pulse Resp BP Pulse Ox 11/09/18 04:50 97.6 F 94 13 106/62 92 L 11/08/18 20:20 94 L 11/08/18 20:00 98.4 F 96 16 100/63 94 L Weight Weight 79.605 kg I&O: 11/07/18 11/08/18 11/09/18 06:59 06:59 06:59 Intake Total 1300 2280 1940 Output Total 9601 7217 2011 [facility] -[id number] Result Diagrams: 11/09/18 04:14 11/09/18 04:14 Phys Exam - Physical Examination Constitutional: NAD HEENT: moist MMs Respiratory: no wheezing soft crackles at bases Cardiovascular: RRR, no significant murmur Gastrointestinal: soft, non-tender, no distention, positive bowel sounds Musculoskeletal: pulses present 1+ pitting edema Neurological: moves all 4 limbs Psychiatric: normal affect Skin: normal turgor, cap refill <2 seconds Deviation from normal: some diffuse erythema and warm on lower legs bilat, not tender to palpation Dx/Plan (1) Acute and chronic respiratory failure with hypoxia Code(s): J96.21 - ACUTE AND CHRONIC RESPIRATORY FAILURE WITH HYPOXIA Status: Acute (2) COPD (chronic obstructive pulmonary disease) Status: Chronic (3) CHF exacerbation Code(s): I50.9 - HEART FAILURE, UNSPECIFIED Status: Acute (4) CKD (chronic kidney disease), stage III Code(s): N18.3 - CHRONIC KIDNEY DISEASE, STAGE 3 (MODERATE) Status: Chronic (5) Diabetes mellitus, type II Status: Chronic Qualifiers: Diabetes mellitus residential insulin use: without moth exterminator use Chronic kidney disease stage: stage 3 (moderate) (6) Fibromyalgia Status: Chronic (7) GERD (gastroesophageal reflux disease) Code(s): K21.9 - GASTRO-ESOPHAGEAL REFLUX DISEASE WITHOUT ESOPHAGITIS Status: Chronic (8) History of atrial flutter Code(s): Z86.79 - PERSONAL HISTORY OF OTHER DISEASES OF THE CIRCULATORY SYSTEM Status: Chronic (9) Hx of past noncompliance Code(s): Z91.19 - PATIENT'S NONCOMPLIANCE W OTH MEDICAL TREATMENT AND REGIMEN Status: Chronic (10) Hyperlipidemia Code(s): E78.5 - HYPERLIPIDEMIA, UNSPECIFIED Status: Chronic (11) Hypertension Code(s): I10 - ESSENTIAL (PRIMARY) HYPERTENSION Status: Chronic (12) Major depressive disorder Code(s): F32.9 - MAJOR DEPRESSIVE DISORDER, SINGLE EPISODE, UNSPECIFIED Status : Chronic (13) Nicotine dependence Code(s): F17.200 - NICOTINE DEPENDENCE, UNSPECIFIED, UNCOMPLICATED Status: Chronic (14) PVD (peripheral vascular disease) with claudication Code(s): I73.9 - PERIPHERAL VASCULAR DISEASE, UNSPECIFIED Status: Chronic (15) Pulmonary hypertension Code(s): I27.2 - OTHER SECONDARY PULMONARY HYPERTENSION * DO NOT USE * Status : Chronic - Plan Plan: Acute on chronic hypoxic respiratory failure likely 2/2 an acute CHF exacerbation, improving: - Patient requiring increase in nasal canula O2 from 3L to at least 5L to maintain sats >88%. Initially presented with metabolic alkalosis and respiratory acidosis - CXR read as stable w/ chronic lung changes but on comparison to last CXR may have some pulmonary edema. Patient did also appear volume overloaded on exam. - Wean O2 to home 3L as tolerated, Diuresis as below. - PE ruled out with CTA chest 3/ Acute CHF exacerbation, improving: - Could be 2/2 diet and medication noncompliance - QD weights and 1.8L fluid restriction QD. - Continue home bumex 4mg BID, metolazone discontinued - Will monitor strict I/Os Hypokalemia: - 2.5-> 3.2. - Monitor and replace - Increase home regimen to 40 meq oral K TID HypoMg: - Continue to monitor & replace PRN. Hypochloremia: - Likely 2/2 IC shifts from metabolic alkalosis and/or some dilutional component from fluid overload. Will continue to monitor & anticipate improvement w/ diuresis. RADHA on CKD III: - Likely cardiorenal in origin and will therefore improve with diuresis. Microcytic anemia: - Hgb within baseline limits at 11 on presentation. Patient varies between normocytic & microcytic per chart review. COPD: - Aware - Will continue home meds. DMII: - Aware, will resume home meds. - ACHS accuchecks and mild SSI. Hypothyroidism: - home meds. MDD: - home meds. Chronic pain/fibromyalgia: - home meds. CHRIS: - CPAP. GERD: - home meds. HTN: - home meds. HLD: - home meds. PVD: - home meds. h/o atrial flutter: - Aware, patient is s/p ablation. - home meds. Pulmonary HTN: - Home 3L supplemental O2. Now on 3.5 L Tobacco use: - nicotine patch ordered. -Will encourage cessation. Constipation -Naveen sen/doc and colace Urinary retention -Catheter in place, will remove prior to D/c -Pt self-caths at home Dispo: most likely home today Code status: Full Diet: HH, CC, fluid restrict 1800 ml/day
[2018-11-09] MEDS: Magnesium Oxide 400 MG TAB PO SCH (09:49)
[2018-11-09] MEDS: Enoxaparin Sodium 40 MG/0.4 ML SYRINGE SC SCH (09:49)
[2018-11-09] MEDS: Gabapentin 300 MG CAP PO SCH ×3 (09:50→21:02)
[2018-11-09] MEDS: Spironolactone 25 MG TAB PO SCH (09:50)
[2018-11-09] MEDS: predniSONE 5 MG TAB PO SCH (09:50)
[2018-11-09] MEDS: Docusate 100 MG CAP PO SCH ×2 (09:50→21:03)
[2018-11-09] MEDS: metFORMIN 500 MG TAB PO SCH ×2 (09:50→16:00)
[2018-11-09] MEDS: Aspirin 81 mg Enteric Coated Tablet PO SCH (09:50)
[2018-11-09] MEDS: Atorvastatin Calcium 40 MG TAB PO SCH (09:50)
[2018-11-09] MEDS: Digoxin 0.125 MG TAB PO SCH (09:51)
[2018-11-09] MEDS: Senokot S 8.6-50 MG TAB PO SCH ×2 (09:51→21:04)
[2018-11-09] MEDS: DULoxetine 30 MG CAP PO SCH ×2 (09:51→21:03)
[2018-11-09] MEDS: Nicotine 21 MG PATCH TD SCH (09:57)
--- NOTE | 2018-11-09 13:14 | PRG ---
DATE OF SERVICE: 11/09/2018 SUBJECTIVE: Ms. Valdovinos is awake and alert this morning. Her potassium has improved to 3.1, but I believe she probably is still maintaining a degree of metabolic alkalosis. However, recommend that we continue her diuretic stoppage for another 24 hours and let her eat or drink whatever she wishes for the time being. She still appears may be a bit volume down. Her lungs are clear. We can recheck a BMP and ABG in the morning and hopefully discharge at that time. Job ID: [id number]
[2018-11-10 03:51] LABS: Actual Bicarbonate (HCO3a) 35.4 mEq/L (22-28); Base Excess (BEa) 10.5 mEq/L (-2.0 to +3.0); CO2 Tension 48.8 mmHg (35.0-45.0); Calcium, Ionized 1.11 mmol/L (1.12-1.30); Carboxyhemoglobin (COHb) 2.4 gm% (0.0-3.0); Hemoglobin (Hb) 11.3 g/dL (12.0-16.0); Potassium - ABG Lab 4.11 mmol/L (3.70-5.30); pH, Arterial 7.48 (7.35-7.45)
[2018-11-10 03:54] LABS: O2 Tension (PaO2) 58.9 mmHg (80.0-100.0)
[2018-11-10] MEDS: Potassium Chloride 20 MEQ TAB PO SCH ×3 (04:28→14:50)
[2018-11-10 05:41] LABS: BUN (Urea Nitrogen) 30 mg/dL (9.8-20.1); Calc. Creatinine Clearance 80 mL/min (70-130); Calcium 9.6 mg/dL (7.8-10.44); Estimated GFR-MDRD 57; Glucose 167 mg/dL (70-105)
[2018-11-10 05:50] LABS: Anion Gap 21 mmol/L (10-20); Carbon Dioxide 31 mmol/L (22-29); Chloride 89 mmol/L (98-107); Potassium 4.3 mmol/L (3.5-5.1); Sodium 137 mmol/L (136-145)
[2018-11-10 06:04] LABS: #Basophils 0.1 thou/uL (0.0-0.2); #Eosinphils 0.1 thou/uL (0.0-0.7); #Lymphocytes 3.3 thou/uL (1.20-3.40); #Monocytes 0.6 thou/uL (0.11-0.59); #Neutrophils 4.7 thou/uL (1.40-6.50); %Eosinophils 1.7 % (0.0-10.0); %Lymphocytes 37.8 % (21.0-51.0); %Monocytes 6.3 % (0.0-10.0); %Neutrophils 53.2 % (42.0-75.0); Anisocytosis SLIGHT = 6-15 cells (100X) (0-5/hpf); Elliptocytes SLIGHT = 2-5 cells (100X) (0-1/hpf); Hemoglobin 10.6 g/dL (12.0-16.0); Large Platelets SLIGHT; MDiff Complete? YES; Mean Corpuscular Hemoglobin 21.9 pg (27.0-31.0); Mean Corpuscular Volume 78.1 fL (78.0-98.0); Mean Platelet Volume 11.4 fL (7.4-10.4); Platelet Count 154 thou/uL (130-400); Platelet Morphology Comment Appears Adequate; Red Blood Cell (RBC) Count 4.85 mill/uL (4.20-5.40); Stomatocytes SLIGHT = 2-5 cells (100X) (0-1/hpf); White Blood Cell (WBC) Count 8.8 thou/uL (4.8-10.8)
[2018-11-10] MEDS: HYDROcodone/Acetaminophen 10/325 mg Tablet PO PRN (06:04)
--- NOTE | 2018-11-10 06:45 | PDOC.FM ---
- Subjective Subjective: Pt reports she is feeling well. States abdomen feels full this AM. - Objective Vital Signs & Weight: Vital Signs (12 hours) Temp Pulse Resp BP Pulse Ox 11/10/18 04:11 96.5 F L 86 16 102/60 94 L 11/10/18 00:08 84 102/58 L 11/09/18 20:25 91 L 11/09/18 20:10 98 F 86 16 97/58 L 91 L Weight Weight 79.742 kg I&O: 11/08/18 11/09/18 11/10/18 06:59 06:59 06:59 Intake Total 2280 2390 2300 Output Total 3671 5771 1450 Balance -0389 -7734 850 Result Diagrams: 11/10/18 04:21 11/10/18 04:21 Phys Exam - Physical Examination Constitutional: NAD +rhales, no wheezing Cardiovascular: RRR, no significant murmur Gastrointestinal: soft, non-tender 1+ pitting edema in BLE Neurological: non-focal, moves all 4 limbs Psychiatric: normal affect, A&O x 3 Skin: normal turgor, cap refill <2 seconds Dx/Plan (1) Acute and chronic respiratory failure with hypoxia Code(s): J96.21 - ACUTE AND CHRONIC RESPIRATORY FAILURE WITH HYPOXIA Status: Acute (2) COPD (chronic obstructive pulmonary disease) Status: Chronic (3) CHF exacerbation Code(s): I50.9 - HEART FAILURE, UNSPECIFIED Status: Acute (4) CKD (chronic kidney disease), stage III Code(s): N18.3 - CHRONIC KIDNEY DISEASE, STAGE 3 (MODERATE) Status: Chronic (5) Diabetes mellitus, type II Status: Chronic Qualifiers: Diabetes mellitus halfway insulin use: without new order clerk use Chronic kidney disease stage: stage 3 (moderate) (6) Fibromyalgia Status: Chronic (7) GERD (gastroesophageal reflux disease) Code(s): K21.9 - GASTRO-ESOPHAGEAL REFLUX DISEASE WITHOUT ESOPHAGITIS Status: Chronic (8) History of atrial flutter Code(s): Z86.79 - PERSONAL HISTORY OF OTHER DISEASES OF THE CIRCULATORY SYSTEM Status: Chronic (9) Hx of past noncompliance Code(s): Z91.19 - PATIENT'S NONCOMPLIANCE W OTH MEDICAL TREATMENT AND REGIMEN Status: Chronic (10) Hyperlipidemia Code(s): E78.5 - HYPERLIPIDEMIA, UNSPECIFIED Status: Chronic (11) Hypertension Code(s): I10 - ESSENTIAL (PRIMARY) HYPERTENSION Status: Chronic (12) Major depressive disorder Code(s): F32.9 - MAJOR DEPRESSIVE DISORDER, SINGLE EPISODE, UNSPECIFIED Status : Chronic (13) Nicotine dependence Code(s): F17.200 - NICOTINE DEPENDENCE, UNSPECIFIED, UNCOMPLICATED Status: Chronic (14) PVD (peripheral vascular disease) with claudication Code(s): I73.9 - PERIPHERAL VASCULAR DISEASE, UNSPECIFIED Status: Chronic (15) Pulmonary hypertension Code(s): I27.2 - OTHER SECONDARY PULMONARY HYPERTENSION * DO NOT USE * Status : Chronic - Plan Plan: Acute on chronic hypoxic respiratory failure likely 2/2 an acute CHF exacerbation, improving: - Patient requiring increase in nasal canula O2 from 3L to at least 5L to maintain sats >88%. Initially presented with metabolic alkalosis and respiratory acidosis - CXR read as stable w/ chronic lung changes but on comparison to last CXR may have some pulmonary edema. Patient did also appear volume overloaded on exam. - Wean O2 to home 3L as tolerated, Diuresis as below. - PE ruled out with CTA chest 11/06 - Held diuretics yesterday, restart today Acute CHF exacerbation, improving: - Could be 2/2 diet and medication noncompliance - QD weights and 1.8L fluid restriction QD. - Continue home bumex 4mg BID, metolazone discontinued - Will monitor strict I/Os Hypokalemia: - 2.5-> 3.2 -> 4.3 - Monitor and replace - Increase home regimen to 40 meq oral K TID HypoMg: - Continue to monitor & replace PRN. Hypochloremia: - Likely 2/2 IC shifts from metabolic alkalosis and/or some dilutional component from fluid overload. Will continue to monitor & anticipate improvement w/ diuresis. RADHA on CKD III: - Likely cardiorenal in origin and will therefore improve with diuresis. Microcytic anemia: - Hgb within baseline limits at 11 on presentation. Patient varies between normocytic & microcytic per chart review. COPD: - Aware - Will continue home meds. DMII: - Aware, will resume home meds. - ACHS accuchecks and mild SSI. Hypothyroidism: - home meds. MDD: - home meds. Chronic pain/fibromyalgia: - home meds. CHRIS: - CPAP. GERD: - home meds. HTN: - home meds. HLD: - home meds. PVD: - home meds. h/o atrial flutter: - Aware, patient is s/p ablation. - home meds. Pulmonary HTN: - Home 3L supplemental O2. Now on 3.5 L Tobacco use: - nicotine patch ordered. -Will encourage cessation. Constipation -Naveen sen/doc and colace Urinary retention -Catheter in place, will remove prior to D/c -Pt self-caths at home Dispo: most likely home today Code status: Full Diet: HH, CC, fluid restrict 1800 ml/day
[2018-11-10] MEDS: Docusate 100 MG CAP PO SCH (09:18)
[2018-11-10] MEDS: Nicotine 21 MG PATCH TD SCH (09:18)
[2018-11-10] MEDS: metFORMIN 500 MG TAB PO SCH ×2 (09:19→16:31)
[2018-11-10] MEDS: DULoxetine 30 MG CAP PO SCH (09:19)
[2018-11-10] MEDS: Senokot S 8.6-50 MG TAB PO SCH (09:19)
[2018-11-10] MEDS: predniSONE 5 MG TAB PO SCH (09:20)
[2018-11-10] MEDS: Digoxin 0.125 MG TAB PO SCH (09:20)
[2018-11-10] MEDS: Aspirin 81 mg Enteric Coated Tablet PO SCH (09:20)
[2018-11-10] MEDS: Atorvastatin Calcium 40 MG TAB PO SCH (09:20)
[2018-11-10] MEDS: Magnesium Oxide 400 MG TAB PO SCH (09:20)
[2018-11-10] MEDS: Gabapentin 300 MG CAP PO SCH ×2 (09:21→14:50)
[2018-11-10] MEDS: Enoxaparin Sodium 40 MG/0.4 ML SYRINGE SC SCH (09:21)
[2018-11-10 10:23] VITALS: TEMP 98
[2018-11-10] MEDS: Bumetanide 1 MG TAB PO SCH (10:26)
[2018-11-10] MEDS: Spironolactone 25 MG TAB PO SCH (10:27)
--- NOTE | 2018-11-10 12:00 | PRG ---
DATE OF SERVICE: We had held Ms. Valdovinos's diuretics for 48 hours. She has developed no pulmonary congestion. Her ABG this morning showed nearly complete resolution of metabolic alkalosis with her pH dropping from 7.58 to 7.48. Her pCO2 was 48.8 and her PO2 was 58.9. This was on FiO2 of 28%. I have recommended that the patient reduce her diuretic to Bumex 1 daily as I believe the over-diuresis led to her metabolic alkalosis. She will have close followup with her PCP in 5-7 days. Otherwise, she is ready for discharge. Job ID: [id number]
[2018-11-10 16:35] VITALS: BP 111/54
--- NOTE | 2018-11-10 21:20 | DIS ---
DATE OF ADMISSION: 11/04/2018 DATE OF DISCHARGE: 11/10/2018 RESIDENT: Carolina Woodruff MD. CONSULTS: None. PROCEDURES: Chest x-ray on 11/04/2018, stable cardiomegaly and chronic lung changes. Chest and thorax CTA on 11/06/2018, no concern for pulmonary embolism. Pulmonary emphysema. There is bilateral interstitial reticular nodularity. Given the nodular component, a dedicated CT thorax is also wanted to document resolution or to exclude underlying neoplastic nodules. PRIMARY DIAGNOSES: 1. Acute on chronic hypoxic respiratory failure likely secondary to acute congestive heart failure exacerbation, improving. 2. Acute congestive heart failure exacerbation. SECONDARY DIAGNOSES: 1. Hypokalemia. 2. Hypomagnesemia. 3. Hypokalemia. 4. Acute kidney injury on chronic kidney disease 3. 5. Microcytic anemia. 6. Chronic obstructive pulmonary disease. 7. Diabetes mellitus type 2. 8. Levothyroxine. 9. Major depressive disorder. 10. Chronic pain/fibromyalgia. 11. Obstructive sleep apnea. 12. Gastroesophageal reflux disease. 13. Hypertension. 14. Hyperlipidemia. 15. Peripheral vascular disease. 16. History of atrial flutter. 17. Pulmonary hypertension. 18. Tobacco abuse. 19. Constipation. 20. Urinary retention. DISCHARGE MEDICATIONS: 1. Albuterol 1.25 mg nebulizer q.4 hours p.r.n. for shortness of breath or wheezing. 2. Aspirin 81 mg p.o. daily. 3. Atorvastatin 40 mg p.o. daily. 4. Bumex 4 mg q.a.m. p.o. 5. Digoxin 0.125 mg p.o. daily. 6. Duloxetine 30 mg p.o. b.i.d. 7. Gabapentin 300 mg capsules 2 tablets p.o. t.i.d. 8. Hydrocodone 10/325 one tablet p.o. q.i.d. p.r.n. for pain. 9. Magnesium oxide 400 mg p.o. daily. 10. Metformin 1000 mg p.o. b.i.d. with meals. 11. Movantik 25 mg p.o. daily. 12. Pantoprazole 40 mg p.o. daily. 13. Potassium chloride 40 mEq p.o. b.i.d. 14. Prednisone 5 mg p.o. daily. 15. Senna/docusate 8.6/50 mg tablet 2 tablets p.o. b.i.d. p.r.n. for constipation. 16. Spironolactone 12.5 mg p.o. q.a.m. with meals. 17. ProAir 2 puff inhalation t.i.d. p.r.n. for dyspnea, wheezing, shortness of breath. 18. Liraglutide 1.2 mg subcutaneous daily. 19. Zofran 4 mg p.o. q.8 hours p.r.n. for nausea. 20. Tiotropium 18 mcg inhalation daily. DISCONTINUED MEDICATIONS: 1. Bumex 4 mg b.i.d 2. Metolazone. HISTORY OF PRESENT ILLNESS/HOSPITAL COURSE: A 53-year-old female with past medical history significant for COPD on 3 L of O2 at home, pulmonary hypertension, and heart failure with preserved ejection fraction who presented to the ED with chief complaint of progressively worsening shortness breath over the course of the last 2 weeks. She reports first noticing progressively worsening lower extremity edema as well as abdominal swelling despite reported compliance with all of her medications and fluid restriction. She states that she saw her PCP, Dr. Chen 1 week ago and metolazone was temporarily increased, but she continued to have increased swelling. She eventually called EMS after she noticed that her O2 saturations were 77% on normal 3 L at home. However, she did note that her O2 tubing was not connected to O2. Her saturations increased to 88% on normal 3 L. She proceeded to the ED to be evaluated. She denies any associated fever, chills, recent sick contacts, productive cough, or orthopnea. She did report PND and nasal congestion. The patient appears volume overloaded on exam. The patient was diuresed with strict fluid restriction. The patient's weight decreased about 8 kg while she is in the hospital. PE was ruled out with CTA of the chest. The patient developed metabolic alkalosis, so her rate of diuresis was slowed. Her CHF exacerbation improves to her home 3 L nasal cannula. Her Bumex was decreased to 4 mg q.a.m., which she had been taking at 4 mg b.i.d. Her metolazone 1 mg Tuesday, Tuesday, Tuesday was also discontinued. The patient was encouraged to drink only when she is thirsty and to limit her amount of salt intake as she has right heart failure. Hyperkalemia. The patient's potassium was very difficult to control on twice daily Bumex. The patient's potassium was aggressively replaced. Once her diuretics were slowed, her potassium was improved to 4.3. The patient was discharged on 40 mEq of oral potassium b.i.d. RADHA on CKD 3. This is likely cardiorenal in origin. Improved with diuresis. Urinary retention. The patient was given a catheter during this stage to record her urine output as well as decrease her need for in and out cath during her stay. The patient will return to self cathing at home post discharge. DISPOSITION: Stable. DISCHARGE INSTRUCTIONS: LOCATION: Home. DIET: Heart-healthy, low-sodium, no salt added, consisting carb. ACTIVITY: As tolerated. FOLLOWUP: 1. Follow up with Dr. Chen on 11/16/2018 at 10:00 a.m. 2. Follow with Dr. Dye. 3. Follow up with [facility]. 4. Follow up with cardiac rehab on 11/15/2018 at 1:00 p.m. Job ID: [id number] [facility]ENTER[facility]
--- NOTE | 2018-11-11 11:57 | EKG ---
Test Reason : Blood Pressure : / mmHG Vent. Rate : 096 BPM Atrial Rate : 093 BPM P-R Int : 152 ms QRS Dur : 134 ms QT Int : 444 ms P-R-T Axes : 061 153 -16 degrees QTc Int : 560 ms Sinus rhythm Right axis deviation Non-specific intra-ventricular conduction block Possible Right ventricular hypertrophy T wave abnormality, consider inferior ischemia Abnormal ECG Confirmed by CURTIS GILLESPIE DO ([id number]), editor managing newspaper FATOUMATA BENITEZ ([id number]) on 11/11/2018 11:56:31 AM Referred By: Confirmed By:CURTIS GILLESPIE DO
== END 2018-11-10 16:36 | disposition home or self-care (01) | DRG 291 ==
LOC: ERS 21:14 → ERHOLD 23:38 → 2NO 11-05 11:51
PROVIDERS: ADMIT Family Medicine; ATTEND Family Medicine
PROC: 5A09457 Assistance with Respiratory Ventilation, 24-96 Consecutive Hours, Continuous Positive Airway Pressure (ICD-10-PCS; principal; 2018-11-04)
DX: I13.0 Hypertensive heart and chronic kidney disease with heart failure and stage 1 through stage 4 chronic kidney disease, or unspecified chronic kidney disease (principal); J96.21 Acute and chronic respiratory failure with hypoxia; I50.33 Acute on chronic diastolic (congestive) heart failure; N17.9 Acute kidney failure, unspecified; I48.92 Unspecified atrial flutter; F11.20 Opioid dependence, uncomplicated; E87.4 Mixed disorder of acid-base balance; E87.6 Hypokalemia; E83.42 Hypomagnesemia; D63.1 Anemia in chronic kidney disease; E11.22 Type 2 diabetes mellitus with diabetic chronic kidney disease; E03.9 Hypothyroidism, unspecified; K21.9 Gastro-esophageal reflux disease without esophagitis; E78.5 Hyperlipidemia, unspecified; I27.29 Other secondary pulmonary hypertension; J44.9 Chronic obstructive pulmonary disease, unspecified; R91.8 Other nonspecific abnormal finding of lung field; N18.3 Chronic kidney disease, stage 3 (moderate); F32.9 Major depressive disorder, single episode, unspecified; M79.7 Fibromyalgia; G47.33 Obstructive sleep apnea (adult) (pediatric); K59.00 Constipation, unspecified; R33.9 Retention of urine, unspecified; Z79.82 Long term (current) use of aspirin; Z79.84 Long term (current) use of oral hypoglycemic drugs; Z91.19 Patient's noncompliance with other medical treatment and regimen; Z79.52 Long term (current) use of systemic steroids; E87.8 Other disorders of electrolyte and fluid balance, not elsewhere classified; E11.51 Type 2 diabetes mellitus with diabetic peripheral angiopathy without gangrene; F17.210 Nicotine dependence, cigarettes, uncomplicated; G89.4 Chronic pain syndrome; I45.81 Long QT syndrome
CPT/HCPCS: 36415; 36416; 71045; 71275; 80048; 80053; 82553; 82805; 83735; 83880; 84484; 85025; 87040; 93005; 94640; 94660; 96365; 96366; 96368; 96375; J1650; J1940; J2930; J3475; J3480; J7050; J7512; J7620; Q9967

== ENCOUNTER 2018-11-14 16:23 | Inpatient (IN) | payer OTHER ==
[2018-11-14 17:11] LABS: Base Excess-Venous -14.1 mmol/L (-2.0 to 3.0); Bicarbonate (HCO3v) 13.9 mmol/L (22.0-28.0); CO2 Tension (PvCO2) 38.7 mmHg (40.0-50.0); Calcium, Ionized 0.86 mmol/L (See Comments:); Chloride 92 mmol/L (98-107); O2 Tension (PvO2) 36.5 mmHg (35.0-45.0); Potassium 5.2 mmol/L (3.5-5.1); Sodium 125 mmol/L (138-145); T. Carbon Dioxide 15.1 mmol/L (22.0-28.0); pH (Venous) 7.163 (7.320-7.430); vO2 Saturation-calc 55.2 % (60.0-85.0)
[2018-11-14 17:18] LABS: Mean Corpuscular HGB CONC 27.2 g/dL (32.0-36.0); Mean Corpuscular Hemoglobin 21.7 pg (27.0-31.0); Mean Corpuscular Volume 79.6 fL (78.0-98.0); Mean Platelet Volume 12.4 fL (7.4-10.4); Platelet Count 278 thou/uL (130-400); RBC Distribution Width 21.7 % (11.5-14.5); Red Blood Cell (RBC) Count 5.06 mill/uL (4.20-5.40)
--- NOTE | 2018-11-14 17:23 | RAD ---
CHEST 1 VIEW: Date: 11/14/18 HISTORY: Dyspnea. COMPARISON: Chest radiograph dated 11/04/18. FINDINGS: Mild pulmonary edema. Heart size is enlarged. Small effusions, larger on the left. No pneumothorax. N o acute osseous abnormalities. There are calcifications in the right rotator cuff. Pulmonary arteries are enlarged. IMPRESSION: Chronic findings. Pulmonary edema and cardiomegaly, as well as pulmonary arterial hypertension. POS: [facility]
[2018-11-14] MEDS ORDERED: Dextrose 10% in Water 1,000 ML IV SCH (17:30)
[2018-11-14 17:32] LABS: Digoxin 1.78 ng/mL (0.8-2.0)
[2018-11-14 17:33] LABS: ALT (SGPT) 37 U/L (8-55); AST (SGOT) 85 U/L (5-34); Alkaline Phosphatase 98 U/L (40-150); Anion Gap 41 mmol/L (10-20); BUN (Urea Nitrogen) 60 mg/dL (9.8-20.1); Bilirubin, Total 5.3 mg/dL (0.2-1.2); Calc. Creatinine Clearance 0 mL/min (70-130); Calcium 8.7 mg/dL (7.8-10.44); Carbon Dioxide 12 mmol/L (22-29); Chloride 85 mmol/L (98-107); Estimated GFR-MDRD 12; Globulin 2.6 g/dL (2.4-3.5); Glucose 86 mg/dL (70-105); Potassium 6.1 mmol/L (3.5-5.1); Protein, Total 6.6 g/dL (6.0-8.3); Sodium 132 mmol/L (136-145)
[2018-11-14 17:35] LABS: #Basophils 0.1 thou/uL (0.0-0.2); #Eosinphils 0.1 thou/uL (0.0-0.7); #Lymphocytes 3.4 thou/uL (1.20-3.40); #Monocytes 1.4 thou/uL (0.11-0.59); #Neutrophils 9.1 thou/uL (1.40-6.50); %Basophils 0.6 % (0.0-1.0); %Eosinophils 0.7 % (0.0-10.0); %Lymphocytes 24.1 % (21.0-51.0); %Monocytes 10.1 % (0.0-10.0); %Neutrophils 64.5 % (42.0-75.0); Anisocytosis SLIGHT = 6-15 cells (100X) (0-5/hpf); Band 11 % (5-11); Hypochromia SLIGHT = 6-15 cells (100X) (0-5/hpf); Lymphocytes 13 % (21-51); MDiff Complete? YES; Microcytosis SLIGHT = 6-15 cells (100X) (0-5/hpf); Monocytes 12 % (0-10); Neutrophil 64 % (42-75); Platelet Morphology Comment Appears Adequate; Poikilocytosis SLIGHT = 6-15 cells (100X) (0-5/hpf); Polychromasia SLIGHT = 2-3 cells (100X) (0-2/hpf)
[2018-11-14 17:45] LABS: Bilirubin Moderate (Negative); Blood, Urine Negative (Negative); Clarity CLOUDY (Clear); Glucose, Urine (Dipstick) Negative (Negative); Leukocyte Moderate (Negative); Nitrite Negative (Negative); Protein, Urine (Dipstick) Negative (Neg-Trace); Specific Gravity, Urine 1.014 (1.002-1.036)
[2018-11-14 17:46] LABS: Bacteria/HPF None Seen HPF (None Seen); RBC/HPF 0-3 HPF (0-3); Squamous Epithelial 0-3 HPF (0-3)
[2018-11-14 17:47] LABS: Pathc Cast-AUWi Flag 2.85 (0-2.49)
[2018-11-14] MEDS ORDERED: Rocuronium Bromide 50 MG/5 ML VIAL ONE (17:56)
[2018-11-14 18:01] LABS: Hyaline Casts/LPF NONE SEEN LPF (0-3 Hyaline); Manual Microscopic Reviewed? No Path Casts Seen; Renal Epithelial None Seen HPF (0-3); Transitional Epithelial 0-3 HPF (0-3)
--- NOTE | 2018-11-14 18:17 | CT ---
CT BRAIN WITHOUT CONTRAST: 11/14/18 HISTORY: Lethargy. Altered mental status. COMPARISON: CT brain 08/26/18. FINDINGS: There is mild motion artifact limiting evaluation of this examination. There is no acute hemorrhage or infarct. No midline shift or mass effect. Ventricular size and extra-axial CSF spaces are similar . There is a hypodensity of the left thalamus which appears similar. Hypodensity of the left cerebellum is similar. The calvarium is intact. The paranasal sinuses and mastoids are clear. IMPRESSION: No acute intracranial abnormality. POS: [facility]
[2018-11-14] MEDS ORDERED: MEROPENEM 1 GM/50 ML 1 GM in Premix Bag 1 BAG IVPB SCH ×2 (18:45→22:15)
[2018-11-14] MEDS ORDERED: fentaNYL Citrate/PF 2,000 MCG in Sodium Chloride 0.9% 60 ML IV SCH (19:06)
--- NOTE | 2018-11-14 19:41 | RAD ---
CHEST ONE VIEW: 11/14/18 HISTORY: Intubation. COMPARISON: Radiograph same day. FINDINGS: Patient intubated. Endotracheal tube tip just below the level of the clavicles. Enteric tube tips jus t below the GE junction approximately 3 cm. Lung mayer are similar. Defibrillator pads project over the chest. IMPRESSION: Satisfactory position of endotracheal tube tip. The enteric tube should be advanced at least 6 cm. POS: [facility]
[2018-11-14 19:52] LABS: Actual Bicarbonate (HCO3a) 14.2 mEq/L (22-28); Analyzer IN Cardio ER; Base Excess (BEa) -14.6 mEq/L (-2.0 to +3.0); CO2 Tension 44.2 mmHg (35.0-45.0); Calcium, Ionized 0.97 mmol/L (1.12-1.30); Carboxyhemoglobin (COHb) 3.2 gm% (0.0-3.0); Hemoglobin (Hb) 12.3 g/dL (12.0-16.0); O2 Tension (PaO2) 75.1 mmHg (80.0-100.0)
[2018-11-14 19:55] LABS: Puncture Site LRA; pH, Arterial 7.12 (7.35-7.45)
[2018-11-14] MEDS ORDERED: Sodium Bicarb 50 MEQ/50 ML Abboject 8.4% SYRINGE ONE (20:00)
[2018-11-14] MEDS ORDERED: Vancomycin HCl 1.5 GM in Sodium Chloride 0.9% 250 ML 300 ML IVPB SCH (20:15)
--- NOTE | 2018-11-14 20:22 | RAD ---
CHEST ONE VIEW: 11/14/18 HISTORY: Central line placement. COMPARISON: Radiograph same day. FINDINGS: Uncomplicated placement left IJ central venous catheter with tip inferior SVC. No large pneumothorax appreciated. IMPRESSION: Uncomplicated placement left IJ central venous catheter. POS: [facility]
[2018-11-14 21:28] LABS: Troponin I 0.046 ng/mL (< 0.028)
--- NOTE | 2018-11-14 21:39 | PDOC.FPRHP ---
- History of Present Illness Chief Complaint: Hypoglycemia History of Present Illness: pt. intubated and sedated on exam, the following history is compiled from medical records and staff Arrived via EMS with AMS, reported POC glucose 30s in the field. no syncope, seizure, fever, chest pain, SOB, N/V/D in transit. on arrival increasing somnolence with difficulty arousing. ED Course: CBC, CMP, LA, trop, UA, UCx, BCx, ABG EKG, CT brain, CXR ET tube and Left IJ central line placed 1.5 L fluid bolus, 1 amp NaHCO, ivanna/etom, meropenem, vanc - Allergies/Adverse Reactions Allergies Allergy/AdvReac Type Severity Reaction Status Date / Time adhesive Allergy Verified 11/05/18 19:53 furosemide [From Lasix] Allergy Verified 11/05/18 19:53 Penicillins Allergy Verified 11/05/18 19:53 pregabalin [From Lyrica] Allergy Verified 11/05/18 19:53 - Home Medications Medication Instructions Recorded Confirmed Type Aspirin [Ecotrin Low Strength] 81 mg PO DAILY #0 tab 02/12/16 11/14/18 Rx Albuterol Sulfate [Proair HFA] 2 puff INH TID PRN 05/10/16 11/14/18 History DULoxetine HCl [Cymbalta] 30 mg PO BID 11/11/16 11/14/18 History Liraglutide [Victoza 2-Lion] 1.2 mg SC DAILY 11/11/16 11/14/18 History Tiotropium [Spiriva Handihaler] 18 mcg INH DAILY 11/11/16 11/14/18 History metFORMIN HCl 1,000 mg PO BID-WM 11/11/16 11/14/18 History Magnesium Oxide [Magnesium] 400 mg PO DAILY 12/18/16 11/14/18 History Potassium Chloride [K-Tab ER] 40 meq PO BID 01/06/17 11/14/18 History Gabapentin 2 tab PO TID 07/25/17 11/14/18 History predniSONE [Prednisone] 5 mg PO DAILY 09/11/18 11/14/18 History Sennosides/Docusate Sodium 2 tab PO BID PRN #60 tab 09/15/18 11/14/18 Rx [Senokot S] Albuterol Sulfate [Albuterol 1.25 mg NEB Q4HR PRN 10/05/18 11/14/18 History Sulfate Neb] HYDROcodone Bit/APAP 10/325 [[place]] 1 tab PO QID PRN 10/05/18 11/14/18 History Pantoprazole [Protonix] 40 mg PO DAILY 10/05/18 11/14/18 History Digoxin [Lanoxin] 0.125 mg PO DAILY #30 tab 10/06/18 11/14/18 Rx Atorvastatin Calcium [Lipitor] 40 mg PO DAILY 10/19/18 11/14/18 History Naloxegol Oxalate [Movantik] 25 mg PO DAILY 10/19/18 11/14/18 History Ondansetron [Zuplenz] 4 mg PO Q8HR PRN 10/19/18 11/14/18 History Spironolactone [Aldactone] 12.5 mg PO QAM-WM #30 tab 10/23/18 11/14/18 Rx Bumetanide [Bumex] 4 mg PO QAM #0 11/10/18 11/14/18 Rx - History PMHx: COPD on 3L at home, atrial flutter, HTN, HLD, PVD, HFpEF, GERD, chronic pain/fibromyalgia, depression, CHRIS on CPAP, urinary retention, CKDIII, DMII, OA PSHx: B/L oophrectomy, kelly, appe, L knee sx x 2, aortobypass sx in 2017, tonsillectomy FHx:CVA, DMII Social: Lives at home with in [place]. ~50 pack year smoking history. Smoking 1ppd. No EtOH or drug use. - Review of Systems ROS unobtainable: due to endotracheal tube - Vital signs BP: 124/47 HR: 64 RR: 24 Tmax: 97.6 Pox: 90% on vent Wt: 87.6kg - Physical Exam Constitutional: other (intubated and sedated) HEENT: normocephalic and atraumatic, conjunctiva clear, no scleral icterus, MMM , oropharynx clear Neck: supple, trachea midline, no LAD Chest: no lesions Heart: RRR, normal S1/S2, no murmurs/rubs/gallops, pulses present, no edema Lungs: good air movement (w/ vent assist), other (crackles in LLLF) Abdomen: soft, other (tense lower abdomen with induration) Musculoskeletal: normal structure Skin: no rash/lesions, good turgor, other (bruising along abdomen, erythematous abdominal folds) Heme/Lymphatic: no unusual bruising or bleeding FMR H&P: Results - Labs Result Diagrams: 11/15/18 04:08 11/15/18 04:08 Lab results: WBC 14.0 thou/uL (4.8-10.8) H 11/14/18 16:47 Hgb 11.0 g/dL (12.0-16.0) L 11/14/18 16:47 Hct 40.3 % (36.0-47.0) 11/14/18 16:47 MCV 79.6 fL (78.0-98.0) 11/14/18 16:47 Plt Count 278 thou/uL (130-400) 11/14/18 16:47 Neutrophils % 64.5 % (42.0-75.0) 11/14/18 16:47 Band Neuts % (Manual) 11 % (5-11) 11/14/18 16:47 ABG pH 7.12 (7.35-7.45) L* 11/14/18 19:50 ABG pCO2 44.2 mmHg (35.0-45.0) 11/14/18 19:50 ABG pO2 75.1 mmHg (80.0-100.0) L 11/14/18 19:50 VBG pCO2 38.7 mmHg (40.0-50.0) L 11/14/18 16:54 VBG pO2 36.5 mmHg (35.0-45.0) 11/14/18 16:54 Sodium 132 mmol/L (136-145) L 11/14/18 16:47 Potassium 6.1 mmol/L (3.5-5.1) H 11/14/18 16:47 Chloride 85 mmol/L (98-107) L 11/14/18 16:47 Carbon Dioxide 12 mmol/L (22-29) L 11/14/18 16:47 BUN 60 mg/dL (9.8-20.1) H 11/14/18 16:47 Creatinine 3.86 mg/dL (0.6-1.1) H 11/14/18 16:47 Glucose 86 mg/dL (70-105) 11/14/18 16:47 Lactic Acid 19.6 mmol/L (0.5-2.2) H* 11/14/18 16:47 Calcium 8.7 mg/dL (7.8-10.44) 11/14/18 16:47 Total Bilirubin 5.3 mg/dL (0.2-1.2) H 11/14/18 16:47 AST 85 U/L (5-34) H 11/14/18 16:47 ALT 37 U/L (8-55) 11/14/18 16:47 Alkaline Phosphatase 98 U/L (40-150) 11/14/18 16:47 Serum Total Protein 6.6 g/dL (6.0-8.3) 11/14/18 16:47 Albumin 4.0 g/dL (3.5-5.0) 11/14/18 16:47 Urine Ketones Trace mg/dL (Negative) H 11/14/18 17:18 Urine Blood Negative (Negative) 11/14/18 17:18 Urine Nitrite Negative (Negative) 11/14/18 17:18 Ur Leukocyte Esterase Moderate (Negative) H 11/14/18 17:18 Urine RBC 0-3 HPF (0-3) 11/14/18 17:18 Urine WBC 11-20 HPF (0-3) H 11/14/18 17:18 Ur Squamous Epith Cells 0-3 HPF (0-3) 11/14/18 17:18 Urine Bacteria None Seen HPF (None Seen) 11/14/18 17:18 FMR H&P: A/P - Problem List (1) Severe sepsis Current Visit: Yes Status: Acute Code(s): A41.9 - SEPSIS, UNSPECIFIED ORGANISM; R65.20 - SEVERE SEPSIS WITHOUT SEPTIC SHOCK (2) Hyperkalemia Current Visit: Yes Status: Acute Code(s): E87.5 - HYPERKALEMIA (3) COPD (chronic obstructive pulmonary disease) Current Visit: No Status: Chronic Qualifiers: (4) Diabetes mellitus, type II Current Visit: No Status: Chronic Qualifiers: Diabetes mellitus snf insulin use: without superintendent terminal use Chronic kidney disease stage: stage 3 (moderate) (5) Fibromyalgia Current Visit: No Status: Chronic (6) Hyperlipidemia Current Visit: No Status: Chronic Code(s): E78.5 - HYPERLIPIDEMIA, UNSPECIFIED Qualifiers: Hyperlipidemia type: unspecified Qualified Code(s): E78.5 - Hyperlipidemia , unspecified (7) Hypertension Current Visit: No Status: Chronic Code(s): I10 - ESSENTIAL (PRIMARY) HYPERTENSION Qualifiers: Hypertension type: essential hypertension Qualified Code(s): I10 - Essential (primary) hypertension (8) RADHA (acute kidney injury) Current Visit: No Status: Acute Code(s): N17.9 - ACUTE KIDNEY FAILURE, UNSPECIFIED (9) Acute and chronic respiratory failure with hypoxia Current Visit: No Status: Acute Code(s): J96.21 - ACUTE AND CHRONIC RESPIRATORY FAILURE WITH HYPOXIA (10) Lactic acidosis Current Visit: No Status: Acute Code(s): E87.2 - ACIDOSIS (11) Tobacco abuse Current Visit: No Status: Chronic Code(s): Z72.0 - TOBACCO USE - Plan MODS - hypotensive, increased O2 requirement, WBC elevation. UTI vs Cellulitis as source - elevated AST and Cr - blood pressure responding to fluid bolus, additional 1L ordered to reach 30ml/ kg IVF resus. continue LR 125 after - monitor CBC, CMP, LA, ABG - continue vanc, merem - pulmonology contacted by ED, consult ordered, appreciate recs - admit to CCU RADHA on CKD III: - likely 2/2 to sepsis, IVF resus as above Lactic acidosis - likely 2/2 to sepsis, IVF resus as above Hyperkalemia - likely 2/2 to acidosis, s/p 1amp bicarb, repeat improved - continue to monitor Microcytic anemia: - Hgb near baseline at 11 on presentation HFpEF: - Aware, necessary IVF resus, on ventilator - hold diuretic medications for now COPD: - Aware, 3L O2 at home currently ventilated DMII: - Aware, resume home meds when tolerating PO - mild SSI hypothyroidism: - Aware, will resume home meds when tolerating PO - TSH pending MDD: - Aware, will resume home meds when tolerating PO Chronic pain/fibromyalgia: - Aware, will resume home meds when tolerating PO CHRIS: - aware, currently ventilated GERD: - Aware, will resume home meds when tolerating PO HTN: - Aware, hold 2/2 hypotension POA HLD: - Aware, will resume home meds when tolerating PO h/o atrial flutter: - Aware, patient is s/p ablation. Will resume home meds. Pulmonary HTN: - Aware, currently ventilated tobacco use: - Aware, encourage cessation code: full ppx: lovenox dispo: admit to CCU for IVF resus and IV abx. monitor closely FMR H&P: Upper Level - Pertinent history 53F presents for altered mentation. Patient is intubated and can not provide history. Per ER records she called in for lethargy and weakness. EMS found her unresponsive on arrival. Her glucose was too low to detect. They gave her amp of D50, was was reported to be still low. While in ER, due to concern of her continued confusion, she was intubated for airway protection. Her glucose now is in low 100. She is sating 90% on ventilator. In ER, she was started started on amp bicarb, etomidate, rocuronium and fentanyl for intubation, 1.5 L LR with 200 ml/hr, 50 ml/hr D10 drip, 1 gm meropenem and 1.5 g vancomycin. Gen: Obese, sedated HEENT: Pupil sluggishly reactive, white sclera, moist mucosal membrane. Intbuated Resp: Crackles in lung bases CV: RRR with no apparent m/g/r. Left IJ in place GI: Enteric tube in, yellow bilous fluid seen. Pannus appear indurated, erythematous, no discrete border, no obvious skin break. 1. AMS: - Multifactorial, primary concern multiorgan dysfunction syndrome, acute hypoxic resp failure, hypoglycemia - Lactic acid of 19, pH of 7.1, elevated WBC of 14, UA concerning for infection and cellulitis of pannus. Will started on vanc/zosyn. Pending blood and urine culture. Repeat LA - Acute hypoxic resp failure: Known hx of copd, tobacco abuse, diastolic dysfunction. No CO2 retention to suggest COPD at this time, but will consider it. Currently intubated and oxygenating appropriately. Repeat ABG - Hypoglycemia: At this time, glucose being corrected. Home med shows metformin and liraglutide. Will stop metformin 2/2 to RADHA/lactic acidosis. Hold liraglutide and replace with SSI while titrating her BG back. 2. Multiorgan dysfunction syndrome - 11% band, elevated WBC, AMS, tachycardia, concerning for cellulitis. Evidence of RADHA. See problem 1. 3. RADHA: - CR at 3x usual baseline. Baseline 1, Cr of 3.86 today. - Possible elevated due to septic shock. - Continue LR fluid resuscitation, strict I/O - Dose abx to kidney function 4. Hyperkalemia - Downtrending from 6.1 to 5.2. - Recheck in morning. If elevated, consider kayexylate. 5. Hypoglycemia - See problem 1 6. COPD - Chronic issue. Currently intubated and oxygenating appropriately. - Will continue home med nebulized. 7. Aseptic pyuria - UA is actually not much changed from previous admission. She often has LE and WBC in urine. - Consider UTI. Will obtain culture. 8. HTN - Hold home HTN meds at this time due to sepsis. 9. CHRIS - Currently intubated 10. Chronic issue of hypothyroidism, depression, GERD, HLD: Continue home med when extubated. - Plan Date/Time: 11/14/182136 I, [Hermilo Wagner], have evaluated this patient and agree with findings/plan as outlined by undergraduate internship resident. Pertinent changes/additions are listed here. Addendum - Attending - Attending Attestation Date/Time: 11/15/18 0802 I personally evaluated the patient and discussed the management with Dr. Sky and Kristy. I agree with and repeated the History, Examination, Assessment and Plan documented above with any addition or exceptions noted below. Low suspicion for meningitis. 45 minutes of critical care time.
--- NOTE | 2018-11-14 21:57 | PDOC.EVN ---
Event Note - Event Note Event Note: Seen at [facility] in ED. Brought in by EMS (discussed with them) slightly altered and with limited history. Upon arrival was not protecting airway, had difficulty maintaining sats and was intubated and sedated. Glucse was reportedly low and treated with no improvement in mentation prior to intubation. Subsequently had LIJ CVC placed. CXR revealed no complications or infiltrate. Other imaging reviewed. Treated with insulin and metformin reportedly, but not taking insulin and I was told no recent attempts at suicide. Intubated and sedated, does not w/d to noxious stimuli. PERRLA. ETT in place. Tachy, reg, without murmur; dec BS bilat. Abd protuberant, soft, with pitting edema in lower half that is mildly erythematous but not warm or indurated. Skin otherwise unremarkable. POCUS revealed sliding lung bilaterally, unable to get good dependent views d/t positioning and desaturations with much movement. Subcostal revealed dilated 4ch with large RV. I am unable to visualized GB in RUQ. Bilateral kidneys without hydronephrosis. A/P: Working dx severe sepsis 2/2 abd cellulitis vs UTI -vanc, merrem, hdz culture -monitor fluid status closely Lactic acidosis, profound -recheck all labs as soon as to unit, add coags as oozing slightly from CVC site during placement per ER MD -cannot r/o ischemic/perforated bowel, metformin toxicity -await labs post resus AHRF 2/2 presumed ARDS + pulm HTN -O2 to keep sats >= 88 -lung protective ventilation -low suspicion for PE at this time RADHA with hyperkalemia -K came down relatively quickly, repeat check as above -will d/w renal Monitor closely. Guarded prognosis.
[2018-11-14] MEDS ORDERED: Propofol BOLUS 1,000 MG/100 ML VIAL IV PRN (22:12)
[2018-11-14] MEDS ORDERED: Morphine 2 MG/ML SYRINGE SLOW IVP PRN (22:12)
[2018-11-14] MEDS ORDERED: DISCONTINUE PREVIOUS NARCOTIC PAIN MEDICATIONS AND BENZODIAZEPINES FS SCH (22:12)
[2018-11-14] MEDS ORDERED: Fentanyl BOLUS 250 ML IVPB PRN (22:12)
[2018-11-14] MEDS ORDERED: Lorazepam 2 MG/ML VIAL SLOW IVP PRN (22:12)
[2018-11-14] MEDS ORDERED: Lactated Ringer's 1,000 ML IV SCH ×3 (22:30→22:58)
[2018-11-14 22:36] LABS: Lactic Acid 17.1 mmol/L (0.5-2.2)
[2018-11-14] MEDS ORDERED: Ondansetron PF 4 MG/2 ML Vial IVP PRN (22:58)
[2018-11-14] MEDS ORDERED: Dextrose 50% Abboject 50 ML SYRINGE SLOW IVP PRN (22:58)
[2018-11-14] MEDS ORDERED: Ondansetron ODT 4 MG TAB PO PRN (22:58)
[2018-11-14] MEDS ORDERED: Dextrose 5% in Water 1,000 ML IV PRN (22:58)
[2018-11-14] MEDS ORDERED: Ventilator Sedation Protocol 1 EACH FS ONE (22:58)
[2018-11-15 00:52] LABS: Hemoglobin 10.9 g/dL (12.0-16.0); Mean Corpuscular HGB CONC 27.3 g/dL (32.0-36.0); Mean Corpuscular Hemoglobin 21.9 pg (27.0-31.0); Mean Corpuscular Volume 80.1 fL (78.0-98.0); Mean Platelet Volume 11.5 fL (7.4-10.4); Platelet Count 260 thou/uL (130-400); RBC Distribution Width 20.9 % (11.5-14.5); Red Blood Cell (RBC) Count 4.98 mill/uL (4.20-5.40); White Blood Cell (WBC) Count 17.4 thou/uL (4.8-10.8)
[2018-11-15 00:56] LABS: INR-International Normal Ratio 2.4; Prothrombin Time 26.3 SEC (12.0-14.7)
[2018-11-15 01:08] LABS: Anion Gap 32 mmol/L (10-20); BUN (Urea Nitrogen) 58 mg/dL (9.8-20.1); Calc. Creatinine Clearance 24 mL/min (70-130); Calcium 8.1 mg/dL (7.8-10.44); Carbon Dioxide 18 mmol/L (22-29); Chloride 87 mmol/L (98-107); Estimated GFR-MDRD 13; Glucose 130 mg/dL (70-105); Sodium 131 mmol/L (136-145)
[2018-11-15 01:11] LABS: #Basophils 0.1 thou/uL (0.0-0.2); #Eosinphils 0.1 thou/uL (0.0-0.7); #Lymphocytes 4.4 thou/uL (1.20-3.40); #Monocytes 1.9 thou/uL (0.11-0.59); #Neutrophils 10.9 thou/uL (1.40-6.50); %Basophils 0.4 % (0.0-1.0); %Eosinophils 0.6 % (0.0-10.0); %Lymphocytes 25.4 % (21.0-51.0); %Neutrophils 62.7 % (42.0-75.0); Anisocytosis SLIGHT = 6-15 cells (100X) (0-5/hpf); Hypochromia SLIGHT = 6-15 cells (100X) (0-5/hpf); Large Platelets SLIGHT; MDiff Complete? YES; Microcytosis SLIGHT = 6-15 cells (100X) (0-5/hpf); Platelet Morphology Comment Appears Adequate
[2018-11-15 01:14] LABS: Troponin I 0.042 ng/mL (< 0.028)
[2018-11-15 02:00] LABS: Lactic Acid 15.5 mmol/L (0.5-2.2)
[2018-11-15] MEDS ORDERED: Albuterol Sulfate 1.25 MG/3 ML NEB NEB SCH (02:15)
[2018-11-15] MEDS ORDERED: HumaLOG 300 UNITS/3 ML VIAL SC SCH (02:15)
[2018-11-15 02:19] LABS: Actual Bicarbonate (HCO3a) 16.1 mEq/L (22-28); Base Excess (BEa) -8.5 mEq/L (-2.0 to +3.0); CO2 Tension 30.4 mmHg (35.0-45.0); Calcium, Ionized 0.97 mmol/L (1.12-1.30); Carboxyhemoglobin (COHb) 2.3 gm% (0.0-3.0); Hemoglobin (Hb) 11.6 g/dL (12.0-16.0); Potassium - ABG Lab 5.65 mmol/L (3.70-5.30); pH, Arterial 7.34 (7.35-7.45)
[2018-11-15 02:21] LABS: Puncture Site RRADIAL
[2018-11-15] MEDS ORDERED: Sodium Chloride 0.9% 1,000 ML IV SCH ×3 (02:30→12:59)
[2018-11-15] MEDS ORDERED: Sodium Bicarbonate 150 MEQ in Dextrose 5% in Water 1,000 ML IV SCH (02:45)
[2018-11-15 06:26] LABS: #Basophils 0.1 thou/uL (0.0-0.2); #Eosinphils 0.1 thou/uL (0.0-0.7); #Lymphocytes 3.7 thou/uL (1.20-3.40); #Monocytes 1.2 thou/uL (0.11-0.59); #Neutrophils 8.3 thou/uL (1.40-6.50); %Basophils 0.7 % (0.0-1.0); %Eosinophils 0.7 % (0.0-10.0); %Lymphocytes 27.5 % (21.0-51.0); %Monocytes 9.2 % (0.0-10.0); %Neutrophils 61.9 % (42.0-75.0); Anisocytosis SLIGHT = 6-15 cells (100X) (0-5/hpf); Hemoglobin 10.5 g/dL (12.0-16.0); Hypochromia SLIGHT = 6-15 cells (100X) (0-5/hpf); MDiff Complete? YES; Mean Corpuscular HGB CONC 28.7 g/dL (32.0-36.0); Mean Corpuscular Hemoglobin 22.2 pg (27.0-31.0); Mean Corpuscular Volume 77.3 fL (78.0-98.0); Mean Platelet Volume 9.5 fL (7.4-10.4); Microcytosis SLIGHT = 6-15 cells (100X) (0-5/hpf); Platelet Count 178 thou/uL (130-400); RBC Distribution Width 20.8 % (11.5-14.5); Red Blood Cell (RBC) Count 4.75 mill/uL (4.20-5.40); White Blood Cell (WBC) Count 13.4 thou/uL (4.8-10.8)
[2018-11-15 06:41] LABS: ALT (SGPT) 160 U/L (8-55); AST (SGOT) 422 U/L (5-34); Albumin 3.4 g/dL (3.5-5.0); Alkaline Phosphatase 91 U/L (40-150); Anion Gap 28 mmol/L (10-20); BUN (Urea Nitrogen) 60 mg/dL (9.8-20.1); Bilirubin, Total 4.6 mg/dL (0.2-1.2); Calc. Creatinine Clearance 24 mL/min (70-130); Calcium 8.1 mg/dL (7.8-10.44); Carbon Dioxide 23 mmol/L (22-29); Chloride 86 mmol/L (98-107); Estimated GFR-MDRD 14; Globulin 2.5 g/dL (2.4-3.5); Glucose 198 mg/dL (70-105); Potassium 5.8 mmol/L (3.5-5.1); Protein, Total 5.9 g/dL (6.0-8.3); Sodium 131 mmol/L (136-145)
[2018-11-15 07:17] LABS: Actual Bicarbonate (HCO3a) 26.9 mEq/L (22-28); Base Excess (BEa) 2.7 mEq/L (-2.0 to +3.0); CO2 Tension 40.3 mmHg (35.0-45.0); Calcium, Ionized 0.91 mmol/L (1.12-1.30); Hemoglobin (Hb) 11.3 g/dL (12.0-16.0); O2 Tension (PaO2) 60.5 mmHg (80.0-100.0); Potassium - ABG Lab 5.58 mmol/L (3.70-5.30); pH, Arterial 7.44 (7.35-7.45)
[2018-11-15 07:18] LABS: ALV-art Gradient 602.125 (0-20); Puncture Site RBA
--- NOTE | 2018-11-15 07:46 | PDOC.FM ---
- Subjective Subjective: Patient intubated on sedation with fentanyl. Responsive to pain. - Objective MAR Reviewed: Yes Vital Signs & Weight: Vital Signs (12 hours) Temp Pulse Resp BP BP Pulse Ox 11/15/18 07:07 91 11/15/18 04:00 24 H 11/15/18 02:37 62 106/47 L 11/15/18 02:00 24 H 11/15/18 00:09 61 101/53 L 11/15/18 00:00 24 H 11/14/18 22:20 97.5 F L 11/14/18 22:10 97.6 F 62 24 H 102/22 L 94 L Weight Weight 84.277 kg Most Recent Monitor Data Heart Rate from ECG 90 NIBP 92/48 NIBP BP-Mean 62 Respiration from ECG 24 SpO2 90 I&O: 11/14/18 11/15/18 11/16/18 06:59 06:59 06:59 Output Total 1155 Balance -1155 Result Diagrams: 11/15/18 04:08 11/15/18 11:48 Phys Exam - Physical Examination Constitutional: NAD (resting comfortably on ventilator) HEENT: moist MMs, sclera anicteric Respiratory: no wheezing, no rales, no rhonchi, clear to auscultation bilateral Cardiovascular: RRR, no significant murmur, no rub Gastrointestinal: soft, non-tender, no distention, positive bowel sounds Musculoskeletal: no edema, pulses present Neurological: moves all 4 limbs restless leg twitching Deviation from normal: erythematous, indurated, warm area on abdominal wall Dx/Plan (1) Acute and chronic respiratory failure with hypoxia Code(s): J96.21 - ACUTE AND CHRONIC RESPIRATORY FAILURE WITH HYPOXIA Status: Acute (2) Severe sepsis Code(s): A41.9 - SEPSIS, UNSPECIFIED ORGANISM; R65.20 - SEVERE SEPSIS WITHOUT SEPTIC SHOCK Status: Acute (3) Hyperkalemia Code(s): E87.5 - HYPERKALEMIA Status: Acute (4) RADHA (acute kidney injury) Code(s): N17.9 - ACUTE KIDNEY FAILURE, UNSPECIFIED Status: Acute (5) Lactic acidosis Code(s): E87.2 - ACIDOSIS Status: Acute (6) COPD (chronic obstructive pulmonary disease) Status: Chronic Qualifiers: COPD type: unspecified COPD Qualified Code(s): J44.9 - Chronic obstructive pulmonary disease, unspecified (7) Pulmonary hypertension Code(s): I27.2 - OTHER SECONDARY PULMONARY HYPERTENSION * DO NOT USE * Status : Chronic (8) Hypoglycemia Code(s): E16.2 - HYPOGLYCEMIA, UNSPECIFIED Status: Acute (9) Coagulopathy Status: Acute (10) Elevated LFTs Code(s): R94.5 - ABNORMAL RESULTS OF LIVER FUNCTION STUDIES Status: Acute (11) History of atrial flutter Code(s): Z86.79 - PERSONAL HISTORY OF OTHER DISEASES OF THE CIRCULATORY SYSTEM Status: Chronic (12) High anion gap metabolic acidosis Code(s): E87.2 - ACIDOSIS Status: Acute (13) Cellulitis Code(s): L03.90 - CELLULITIS, UNSPECIFIED Status: Acute Qualifiers: Site of cellulitis: trunk Site of cellulitis of trunk: abdominal wall Qualified Code(s): L03.311 - Cellulitis of abdominal wall (14) Diabetes mellitus, type II Status: Chronic Qualifiers: Diabetes mellitus 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 use: without local 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 Chronic kidney disease stage: stage 3 (moderate) (15) Hyperlipidemia Code(s): E78.5 - HYPERLIPIDEMIA, UNSPECIFIED Status: Chronic Qualifiers: Hyperlipidemia type: unspecified Qualified Code(s): E78.5 - Hyperlipidemia , unspecified (16) Hypertension Code(s): I10 - ESSENTIAL (PRIMARY) HYPERTENSION Status: Chronic Qualifiers: Hypertension type: essential hypertension Qualified Code(s): I10 - Essential (primary) hypertension - Plan Plan: Encephalopathy Multifactorial, primary concern multiorgan dysfunction syndrome, acute hypoxic resp failure, hypoglycemia, metformin toxicity Initial labs showed Lactic acid of 19, pH of 7.1, elevated WBC of 14, UA with WBC's and no organisms and cellulitis of pannus. Brain CT showed no acute process. ABG pH 7.44, pCO2 40.3, pO2 60.5 -Cont mechanical ventilation -Glucose checks have improved, will stop D10 and change to q4 accuchecks. -Hold metformin -Currently sedated with fentanyl Acute hypoxic resp failure Known hx of copd, tobacco abuse, diastolic dysfunction, pulmonary hypertension. No CO2 retention to suggest COPD at this time, but will consider it. Currently intubated and oxygenating appropriately. Repeat ABG shows improved pH -Pulm on board, appreciate recs Hypoglycemia Glucose initially undetectable. s/p glucose and an amp of D50. Was on D10W and q1h accuchecks -Transition to q4h accuchecks and stop D50 as all checks have been WNL since moving to the floor. -Hold home meds Severe Sepsis Pt with elevated WBC count to 14, lactic acidosis to 19.6, concern for cellulitis of pannus. s/p fluid resuscitation. Lactic acid has downtrended to 6.2. -Blood cultures and urine cultures pending -Meropenem s/p vanc -BP's have been low, will give another 500 mL bolus and if no improvement in BP' s will need to start levophed -Consider solucortef -Check procalcitonin Anion Gap Metabolic Acidosis Pt initially with pH 7.12, bicarb 14, pCO2 44, anion gap 35. Lactic acid 19.6. This is likely 2/2 lactic acidosis from severe sepsis vs metformin -Improving s/p bicarb -Will continue to trend lactic acid and ABG -Continue mechanical ventilation RADHA on CKD Cr at 3x usual baseline. Baseline 1, Cr of 3.86 on admission. Possibly elevated due to severe sepsis -Ashley with Nephro consulted, appreciate recs -Dose abx to kidney function -Trialysis catheter placed on 11/15 in [facility] Hyperkalemia -Downtrending, but still elevated this AM at 5.8 -Dr. Ramirez has been consulted, appreciate recs -Dr. Valle was consulted for trialysis catheter placement, which was done in [facility] on 11/15. Elevated LFT's AST, ALT, and t. bili elevated and trending up. On 11/15: AST 422, ALT 160, t. bili 4.6. This could be 2/2 severe sepsis with end organ failure vs metformin toxicity. Pt s/p cholecystectomy. -Will continue to trend. -Consider hepatitis panel Lactic Acidosis LA elevated to 19.6, has downtrended to 6.2. Likely 2/2 severe sepsis vs metformin toxicity -Will continue to trend Coagulopathy Pt has been oozing from central line placement in L IJ. INR elevated to 2.4. Pt not on any blood thinners per medication list, only aspirin. Platelets WNL. This could be 2/2 liver failure from metformin toxicity vs end organ damage from severe sepsis -Will continue to monitor -Consider full DIC panel COPD Chronic issue. Currently intubated and oxygenating appropriately. - Will continue home nebs Pulmonary HTN Pt chronically requires oxygen, currently at FiO2 100% on vent -Monitor -Continue ventilation Aseptic pyuria UA is actually not much changed from previous admission. She often has LE and WBC in urine. No concern for UTI at this time. HTN -Hold home HTN meds at this time due to hypotension from sepsis. Code Status: Full VTE ppx: None as pt currently coagulopathic, will monitor GI ppx: Protonix Lines/Tubes: L IJ CVC 11/14, R femoral trialysis cath 11/15, bagley 11/14, ET tube , OG tube 11/14 Dipso: continue to monitor in ICU Addendum - Attending - Attending Attestation Date/Time: 11/15/18 0850 I personally evaluated the patient and discussed the management with Dr. Cruz ~ 930 am. I agree with the History, Examination, Assessment and Plan documented above with any addition or exceptions noted below. Acute encephalopathy Acute on chronic hypoxic respiratory failure secondary to COPD/Pulm HTN Hypoglycemia Shock- possibly septic vs cardiogenic Anion-gap metabolic acidosis secondary to lactic acidosis RADHA with hyperkalemia Coagulopathy Liver failure, presumed shock liver -intubated and sedated in ICU. CVP elevated so no additional fluid needed. Will start levophed to keep MAP >65. Get RUQ u/s and ECHO to further evaluate. Trend lactic acid and CMP. Appreciate critical care, nephrology input. Guarded prognosis
[2018-11-15] MEDS: HumaLOG 300 UNITS/3 ML VIAL SC PRN ×2 (08:02→16:26)
--- NOTE | 2018-11-15 08:18 | OP ---
DATE OF PROCEDURE: 11/15/2018 PREOPERATIVE DIAGNOSES: Acute kidney injury, occluded right renal artery, ongoing tobacco abuse, sepsis, respiratory failure, renal failure, acute, follow Dr. Ramirez, hyperkalemia, acidosis. POSTOPERATIVE DIAGNOSES: Acute kidney injury, occluded right renal artery, ongoing tobacco abuse, sepsis, respiratory failure, renal failure, acute, follow Dr. Ramirez, hyperkalemia, acidosis. PROCEDURE PERFORMED: Placement of right femoral vein Trialysis catheter. ANESTHESIA: 1% Xylocaine. DESCRIPTION OF PROCEDURE: With the patient at bedside, her right groin was clipped of hair, prepared with ChloraPrep and draped in routine fashion. Local anesthetic was infiltrated in the skin and subcutaneous tissue. Using Seldinger technique, a Trialysis catheter was placed, secured with 3-0 nylon suture, J-wire removed. Sterile dressings applied. Each port aspirated blood and flushed with heparinized saline solution. Job ID: [id number]
[2018-11-15] MEDS ORDERED: Enoxaparin Sodium 40 MG/0.4 ML SYRINGE SC SCH (09:00)
[2018-11-15] MEDS ORDERED: Vancomycin HCl 1.75 GM in Sodium Chloride 0.9% 500 ML IVPB SCH (09:00)
[2018-11-15] MEDS: Meropenem 500 MG in Sodium Chloride 0.9% 100 ML IVPB SCH ×2 (09:05→20:49)
[2018-11-15] MEDS ORDERED: Albuterol Sulfate 1.25 MG/3 ML NEB NEB PRN (09:06)
[2018-11-15] MEDS ORDERED: Norepinephrine 8 MG/0.9% NS 250 ML ONE (09:59)
[2018-11-15] MEDS ORDERED: Hydrocortisone Sod Succ/PF 100 mg/2 ml Vial IVP SCH (10:00)
--- NOTE | 2018-11-15 10:06 | PDOC.EVN ---
Event Note - Event Note Event Note: CVP measure at 22-25 Pt remains hypotensive with MAP's in the 50's. Will start levophed at this time. Bedside abdominal US showed a very small amount of free fluid, but no pocket large enough to do a bedside paracentesis. Will get official abd US to further evaluate.
[2018-11-15] MEDS ORDERED: Norepinephrine 8 MG/0.9% NS 250 ML IVPB SCH (10:15)
[2018-11-15] MEDS: Pantoprazole 40 MG VIAL IVP SCH (10:24)
[2018-11-15] MEDS ORDERED: Acetaminophen 80 MG Suppository PR PRN (11:58)
[2018-11-15] MEDS: Propofol 1,000 MG/100 ML VIAL IV PRN (12:24)
[2018-11-15 12:25] LABS: Lactic Acid 3.5 mmol/L (0.5-2.2)
[2018-11-15 12:27] LABS: Anion Gap 19 mmol/L (10-20); BUN (Urea Nitrogen) 61 mg/dL (9.8-20.1); Calc. Creatinine Clearance 27 mL/min (70-130); Carbon Dioxide 30 mmol/L (22-29); Chloride 88 mmol/L (98-107); Estimated GFR-MDRD 15; Glucose 106 mg/dL (70-105); Potassium 5.1 mmol/L (3.5-5.1); Sodium 132 mmol/L (136-145)
[2018-11-15 12:29] LABS: Acetaminophen Less than 6.0 mcg/mL (10.0-30.0); Alcohol Less than 10 mg/dL (Less than 10); Salicylate Less than 8.0 mg/dL (15.0-30.0)
[2018-11-15] MEDS ORDERED: Furosemide 20 MG/2 ML VIAL SLOW IVP SCH (13:15)
[2018-11-15] MEDS: Furosemide 100 MG in Sodium Chloride 0.9% 100 ML IVPB SCH (13:35)
--- NOTE | 2018-11-15 13:45 | CON ---
DATE OF CONSULTATION: HISTORY OF PRESENT ILLNESS: Chyna Valdovinos is a 53-year-old female presented to the emergency room at 4 o'clock yesterday afternoon complaining of lethargy and mental status changes. She is evaluated in the emergency room. She was noted to be hypoglycemic when EMS brought her to the emergency room and she is given oral glucose without much improvement and then D50, becoming alert and answering questions. She was found to be hyperkalemic, hypoxic. She has a history of home oxygen use and BiPAP at night. She is noted to be hypotensive with history of diabetes, history of admissions for CHF and sepsis with severe acidosis and acute kidney injury. She had an antecubital IVs placed. Left IJ central line placed. She was intubated. I was called, awoke this morning and found a voicemail requesting dialysis access at 2:00 a.m. I acknowledged this at 6:00 a.m., called the patient's nurse and I was told that her potassium is 5.6. She was intubated and stable, although, blood pressure in the 90s, not on pressors. On my arrival this morning, consents have not been obtained for dialysis access or for dialysis. ALLERGIES: ADHESIVE, FUROSEMIDE, PENICILLIN, AND PREGABALIN. THE PATIENT IS INTUBATED. HISTORY IS OBTAINED FROM THE CHART. SMOKE, IT IS REPORTED THAT SHE SMOKES A PACK A DAY. DOES NOT USE ALCOHOL OR DRUGS. FAMILY HISTORY: Significant for stroke and diabetes mellitus. PAST SURGICAL HISTORY: Bilateral oophorectomy, cholecystectomy, appendectomy, left knee surgery, aortofemoral bypass surgery in 2017, and tonsillectomy. PAST MEDICAL HISTORY: Aortic occlusion status post aortobifemoral bypass, COPD on with continued tobacco abuse, atrial flutter, hypertension, GERD, chronic pain, fibromyalgia, depression, sleep apnea history of urinary retention, CKD, and osteoarthritis. HOME MEDICATIONS: Include: 1. Aspirin. 2. Albuterol. 3. Duloxetine. 4. Victoza. 5. Spiriva. 6. Metformin. 7. Magnesium. 8. Potassium. 9. Gabapentin. 10. Prednisone. 11. Senokot. 12. [place]. 13. Protonix. 14. Digoxin. 15. Lipitor. 16. Movantik. 17. Zofran. 18. Spironolactone. 19. Bumex. PHYSICAL EXAMINATION: VITAL SIGNS: The patient's blood pressure 94/67, heart rate 86 on the ventilator, sedated. During the course of my evaluation, the patient's blood pressure dropped into the 70s and then 80s at times. She had a vagal episode of heart rate in the 40s that responded to increased oxygenation. GENERAL: 5 feet 5 inches, 185 pounds, BMI 30. Urine output negligible on admission after fluid boluses 50 to 60 an hour. LUNGS: No wheezing. Rhonchi base. CARDIAC: Regular rate and rhythm. ABDOMEN: Soft, obese, cellulitis on lower abdomen without evident abscess. No skin changes. There is some mild ecchymoses one location may be indicative of anticoagulation injection subcu. EXTREMITIES: She has mottled lower extremities, chronic venous stasis changes. I cannot Doppler pedal pulses. I initially could not palpate femoral pulses, but could Doppler them later. Re-exam revealed dopplerable right femoral pulse. DIAGNOSTIC DATA: Review of the records reveals that June 2014, Yousif Aponte excised a back mass. On 08/13/2014, Dr. Bran performed normal colonoscopy and upper endoscopy with mild distal esophagitis and mild gastritis. On 01/07/2017, Dr. Yousif Aponte perform angiograms runoff with right common iliac stenting and left common iliac stent for aortoiliac occlusive disease. During that experience, the patient's right renal artery was occluded. Iliacs were heavily calcified. On 07/26/2017, Dr. Dye performed aortogram runoff for severe PAD and severe claudication. Right lower extremity revealed a 50% to 60% stenosis of the previously stented area without gradient, 100% occlusion of right SFA, reconstitution mid to distal right SFA, 90% stenosis of the popliteal artery, two-vessel runoff to the foot. In the left lower extremity, 50% to 60% stenosis of the left common iliac artery, SFA patent on the left, 100% occlusion of the popliteal artery proximally, two-vessel runoff to the foot via the anterior tibial and peroneal artery. On 09/14/2018, Dr. Carlos Gan, EP study with ablation for history of wider complex arrhythmia, history of SLE, and history of syncopal spells, with history of normal LV function, dilated RV, and pulmonary hypertension. Echocardiogram 10/20/2018, 60% to 65% EF, mild aortic regurg, moderate tricuspid regurg, right ventricular systolic pressure 46, pulmonary hypertension noted, severely dilated RV and reduced RV systolic function. LABORATORY DATA: White count 13, hemoglobin 10.5. PT 26. INR 2.4. Sodium 131, potassium 5.8, carbon dioxide 23, BUN 60, creatinine 3.5, GFR 14. Bilirubin 4.6, AST and ALT of 422 and 160. Digoxin 1.78. ASSESSMENT AND PLAN: 1. Acute renal failure with prior history of 11/10/2018, creatinine normal multifactorial related to diabetes, hypertension, tobacco abuse, occluded right renal artery, and sepsis. Dr. Ramirez is seeing her. Hemodialysis catheter will be inserted in the groin and if there is no renal recovery, she may need long-term dialysis, preserve veins for future fistula access. Avoid IV access, blood draws in her arms. Have the nurse immediately remove antecubital IVs. 2. Sepsis. 3. Diabetes mellitus. 4. Hypertension. 5. Peripheral artery disease with bilateral iliac stents and distal arterial occlusion and lack of pedal pulses. 6. Chronic venous stasis disease. 7. Ongoing tobacco abuse. Job ID: [id number]
--- NOTE | 2018-11-15 14:14 | ULT ---
ABDOMINAL ULTRASOUND: HISTORY: Evaluate liver, kidneys, and ascites. COMPARISON: 12/28/2017 TECHNIQUE: Utilizing a Multi-Hertz transducer, sonographic imaging of the abdomen is performed in the longitudin al and transverse planes. FINDINGS: The visualized IVC and aorta are unremarkable. Suboptimal evaluation of the pancreas due to bowel ga s. There is evidence of fluid in the right hemiabdomen. The hepatic parenchyma has a normal echotex ture. No hepatic masses or intrahepatic biliary dilatation. The contour of the hepatic margin is ma intained. the right hepatic lobe measures 21 cm. The main portal vein is patent. The gallbladder i s surgically absent. Common bile duct diameter is 0.3 cm. The right kidney has a normal cortical echotexture. There is renal cortical thinning. No hydronephr osis. The right kidney measures 5.3 x 6.5 x 12.6 cm. The left kidney has a normal cortical echotext ure. No hydronephrosis. The left kidney measures 4.5 x 4.9 x 12.3 cm. The spleen has a normal echo texture, measuring 13 cm in maximum dimension. IMPRESSION: 1. There is ascites, predominantly in the right hemiabdomen, with the greatest pocket in the right u pper quadrant. 2. No evidence of hydronephrosis. 3. Mild hepatosplenomegaly. POS: H
[2018-11-15] MEDS: DOBUTamine 500 mg/250 ml 250 ML IVPB SCH (14:16)
--- NOTE | 2018-11-15 14:28 | CON ---
DATE OF CONSULTATION: 11/15/2018 SERVICE: Pulmonary Medicine. REASON FOR CONSULT: ICU patient. HISTORY OF PRESENT ILLNESS: The patient is a 53-year-old white female with past medical history significant for respiratory bronchiolitis interstitial lung disease. She has chronic hypoxic respiratory failure, she is on oxygen at home. She was in her usual state of health, but recently, she has had multiple presentations to the emergency department for different issues. Ultimately, she returned this time, was sick enough to require intubation. She was found down at home and was extremely confused. The glucose was in the 30s. There was no reports of actual illness that precipitated this event. Either way, in the emergency department, she was difficult to arouse, and was subsequently intubated. She cannot provide me any additional elements of the history at this point. Overnight, she was extraordinarily hypoxemic. She was given 3 L of fluid, and her hypoxemia got significantly worse. PAST MEDICAL HISTORY: 1. Chronic hypoxic respiratory failure. 2. Respiratory bronchiolitis, interstitial lung disease, biopsy-proven. 3. Hypertension. 4. Dyslipidemia. 5. Peripheral vascular disease. 6. Gastroesophageal reflux disease. 7. Fibromyalgia. 8. Major depressive disorder. 9. Obstructive sleep apnea, moderate. 10. Urinary retention. 11. CKD 2. 12. Type 2 diabetes mellitus. 13. Osteoarthritis. 14. History of atrial flutter. PAST SURGICAL HISTORY: 1. Bilateral oophorectomy. 2. Cholecystectomy. 3. Appendectomy. 4. Left knee surgery x2. 5. Aorto bypass surgery in 2017. 6. Tonsillectomy. 7. History of CVA. FAMILY HISTORY: Noncontributory. SOCIAL HISTORY: She lives in [place] with her . She has greater than 50-pack year history of smoking. She continues to smoke a pack on a daily basis. Denies any alcohol or illicit drug use. ALLERGIES: ADHESIVE, FUROSEMIDE, PENICILLIN, PREGABALIN. IT IS NOT CLEAR WHAT HER FUROSEMIDE ALLERGY IS, BUT IT WAS ONLY PLACED IN THE COMPUTER ON THE October. MEDICATIONS: List of her inpatient medications was reviewed. Multiple updates were made. REVIEW OF SYSTEMS: This cannot be obtained as patient is currently intubated. PHYSICAL EXAMINATION: VITAL SIGNS: Afebrile currently, pulse 93, blood pressure 103/61, respirations 23, saturation on 95% FiO2 and a PEEP of 9. GENERAL: The patient is awake and alert, in no apparent distress. LUNGS: Decent air entry. There is not really a prolonged expiratory phase on mechanical ventilator. Crackles are extensive. HEART: Normal rate, regular. ABDOMEN: Soft, tender to palpation. Bowel sounds are present. There is fluid wave present. No rebound or guarding is appreciated. HEART: Normal rate. Regular. MUSCULOSKELETAL: No cyanosis or clubbing. EXTREMITIES: Trace 1+ edema is present. GENITOURINARY: Moore catheter in place. NEUROLOGIC: Grossly nonfocal. She is comfortably overbreathing the ventilator, demonstrates a good cough and gag. She is following some simple commands by sticking out her tongue. She can move all 4 extremities to noxious stimuli. LABORATORY DATA: WBC 13.4, hemoglobin 10.5, platelets 178,000. INR 2.4. pH 7.44, pCO2 40.3, pO2 60.5. Lactate was originally 19, but is downtrending to 3.5. TSH 2.5, ammonia 59. Creatinine 3.2, BUN 61. Bicarb 30. Basic metabolic profile is otherwise unremarkable. Liver function studies including an AST and ALT are significantly elevated. She does not have a significant history of this. Procalcitonin was in the indeterminate range. Urinalysis is unremarkable. Salicylates, acetaminophen and alcohol levels are negative. Blood cultures x2 are negative. IMAGIN. Ultrasound of the abdomen is pending. 2. CT of the brain is without acute intracranial abnormality. 3. Chest x-ray demonstrates left IJ central venous catheter terminates in a good position. Bilateral pulmonary vascular engorgement is present. Cardiomegaly is noted despite the fact it is an AP film. The carinal angle is not significantly enlarged suggesting no left atrial dilation, but the right atrium predominates. There is left-sided pleural effusion likely present. Endotracheal tube is in good position, and terminates 2 cm above the level of the carlos. ASSESSMENT: 1. [id number]-evqtxam hypoxic respiratory failure. 2. Respiratory bronchiolitis, interstitial lung disease with acute exacerbation. 3. Pulmonary hypertension, based on multiple studies including CTAs of the chest , echocardiograms previously, likely multifactorial. 4. Cor pulmonale with acute decompensation. 5. Acute kidney injury. 6. Septic shock, possible. 7. Hypoglycemia, resolved. 8. Shock liver, suspected. 9. Obstructive sleep apnea. DISCUSSION AND PLAN: The patient is behaving as though she has a decompensated pulmonary hypertension event with cor pulmonale. The fluids will be interrupted. We will cautiously introduce some dobutamine and Lasix drip. CVP is extraordinarily elevated at 26 mmHg. My guess is, her right ventricle has lost contractility associated with this high pressure. We will continue steroids, and empiric antibiotics right now, but we can rapidly deescalate these things, if we do not find any infectious thing to treat in the next 48 hours. If the patient survives this event (which she is very likely to pass away from it), a formal evaluation for pulmonary hypertension in the outpatient setting should be considered. Critical Care will continue to follow. CRITICAL CARE TIME: 30 minutes. Job ID: [id number] MTDD
--- NOTE | 2018-11-15 14:58 | PQF ---
CLINICAL DOCUMENTATION IMPROVEMENT CLARIFICATION FORM: ICD-10 Updated PLEASE DO AN ADDENDUM TO THE PROGRESS NOTE WITH ANY DOCUMENTATION UPDATES OR ADDITIONS AND CARRY THROUGH TO DC SUMMARY. THANK YOU. DATE: 11/15/18 ATTN: DR. CAIN Please exercise your independent, professional judgment in responding to the clarification form. Clinical indicators are provided on the bottom of this form for your review Please check appropriate box(s): [ x ] Encephalopathy: Type: [ x ] Acute [ ] Subacute [ ] Chronic Etiology: [ ] Hypertensive [x ] Metabolic [ ] Toxic [ ] Hepatic with Coma [ ] Hepatic w/o Coma [ x] Hypoxic [ x ] Septic [ ] Drug induced: [ ] Unspecified [ ] in the setting of underlying dementia [ ] Other (please specify) In addition, please specify: Present on Admission (POA): [ x] Yes [ ] No [ ] Unable to determine For continuity of documentation, please document condition throughout progress notes and discharge summary. Thank You. CLINICAL INDICATORS - SIGNS / SYMPTOMS / LABS ER NOTE: "MENTAL STATUS CHANGES. PT HAS BEEN EXTRA SLEEPY TODAY, FOUND TODAY WITH DIFFICULTY TO AROUSE." PROGRESS NOTE 11/15: "ENCEPHALOPATHY" RISKS: SEPSIS RESPIRATORY FAILURE TREATMENT: IV VANCOMYCIN (ER) IV MEROPENEM (ER- PRESENT) IV FLUIDS (ER-PRESENT) (This form is maintained as a part of the permanent medical record) 2014 [employer]. All Rights Reserved [email or web address] [email or web address] Office: [phone] [facility]
--- NOTE | 2018-11-15 15:21 | ULT ---
BILATERAL UPPER EXTREMITY VASCULAR DOPPLER ULTRASOUND: 11/15/2018 HISTORY: End stage renal disease. Vessel mapping requested for dialysis access. TECHNIQUE: Multiplanar luna-scale sonographic imaging of the vascular structures of the bilateral upper extremit ies obtained, as described below. FINDINGS: The right internal jugular vein, subclavian vein, and axillary vein appear patent. The left internal jugular vein could not be visualized/assessed secondary to bandaging associated wit h a central venous catheter, per the performing quill stripper. The left subclavian vein and left axill lissy vein appear patent. VESSEL DIAMETER Right brachial artery 3.8 mm Right radial artery 1.2 mm Right ulnar artery 1.2 mm Left brachial artery 4.5 mm Left radial artery 1.9 mm Left ulnar artery 1.9 mm RIGHT CEPHALIC VEIN RIGHT BASILIC VEIN Above elbow proximal 2.2 mm 3.6 mm Above elbow mid 1.4 mm 2.5 mm Above elbow distal 1.9 mm 1.7 mm At elbow 4.5 mm 2.1 mm Below elbow proximal 1.0 mm 1.6 mm Below elbow mid 1.0 mm 0.7 mm Below elbow distal 2.3 mm 0.5 mm LEFT BASILIC VEIN LEFT CEPHALIC VEIN Above elbow proximal 2.5 mm Nonvisualized Above elbow mid 2.2 mm 1.2 mm Above elbow distal 2.0 mm 1.6 mm At elbow 3.4 mm 1.8 mm Below elbow proximal 1.8 mm 2.6 mm Below elbow mid 1.8 mm 1.3 mm Below elbow distal 1.4 mm 1.6 mm There are areas of venous thrombus, resulting in noncompression, involving portions of bilateral ceph alic veins. This involves the right cephalic vein above elbow mid, right cephalic vein at antecubita l fossa, and right cephalic vein below elbow distal. In additional, there is thrombus in a noncompre ssible nature of the left cephalic vein below elbow proximal and below elbow distal. IMPRESSION: Dialysis vein mapping examination as detailed above. Please note that there are areas of thrombosis of bilateral cephalic veins, as detailed above. POS: [facility]
[2018-11-15] MEDS ORDERED: Phytonadione 10 MG/ML AMP SC SCH (16:30)
[2018-11-15 16:34] LABS: Amphetamine Not Detected (NotDetected); Barbiturates Screen Not Detected (NotDetected); Benzodiazepine Screen Not Detected (NotDetected); Cocaine Metabolite Screen Not Detected (NotDetected); Medtox Control Line Valid? VALID (VALID); Medtox Reader # READER 4; Methadone Not Detected (NotDetected); Methamphetamine Not Detected (NotDetected); Opiate Screen Detected (NotDetected); Oxycodone Screen Not Detected (NotDetected); Phencyclidine (PCP) Not Detected (NotDetected); THC/Cannabinoid Screen Not Detected (NotDetected); Tricyclic Screen Not Detected (NotDetected)
[2018-11-15] MEDS: methylPREDNISolone Sod Succ 40 MG VIAL IVP SCH ×2 (17:49→23:44)
--- NOTE | 2018-11-15 20:32 | CON ---
DATE OF CONSULTATION: 11/15/2018 REASON FOR CONSULTATION: Elevation of liver enzyme. HISTORY: Ms. Valdovinos is a 53-year-old female, who was admitted to the hospital 2 days ago with a working diagnosis of severe septic without shock. She initially was found in the field with acute mental status change with hypoglycemic in the field. She was brought to the hospital and subsequently was intubated for respiratory failure. The patient has known underlying COPD and recent diagnosis of cor pulmonale. She has had recurrent admissions for respiratory failure and heart failure, presumably to the right heart. Her echocardiogram previously had shown ejection fraction of 55% to 60%. The patient does not have any known underlying liver disease. States she has had previous cholecystectomy. Yesterday, her liver test showed a bilirubin of 5.3, ALT of 85, and AST of 37. Today, her AST has increased to 422 and ALT has increased to 160. INR is 2.4. She previously had a negative hepatitis C antibody. Currently, she is intubated with Diprivan sedation. No further history is obtained. PAST MEDICAL HISTORY: 1. COPD, on home oxygen. 2. Atrial flutter. 3. Hypertension. 4. Peripheral vascular disease. 5. Fibromyalgia with chronic pain syndrome. 6. Obstructive sleep apnea, on CPAP. 7. Stage 3 chronic kidney disease. 8. Adult-onset diabetes. 9. Osteoarthritis. 10. Status post cholecystectomy. 11. Status post aorto bypass surgery in 2017. 12. Status post oophorectomy. SOCIAL HISTORY: The patient is . She smokes one pack a day. No alcohol usage. FAMILY HISTORY: Negative for any known GI problem, liver disease, or GI malignancy. REVIEW OF SYSTEMS: Not obtainable. ALLERGIES: INCLUDES TAPE ADHESIVE, LASIX, PENICILLIN, AND PREGABALIN. MEDICATIONS: At home include aspirin, albuterol inhaler, Cymbalta, Victoza, Spiriva inhaler, metformin, potassium and magnesium, gabapentin, prednisone, and Senokot. PHYSICAL EXAMINATION: VITAL SIGNS: Blood pressure 103/58, pulse of 92, temperature 97.5, on 9 mcg of Levophed. GENERAL: She is intubated and sedated. HEENT: Sclerae anicteric. NECK: Supple. CV: Shows normal S1 and S2. Regular rate and rhythm. CHEST: Shows a breath sounds. ABDOMEN: Protuberant. There is no distention. No tympany. No illicit tenderness. She does have hepatomegaly with liver edge palpable approximately 10 cm below the costal margin. EXTREMITIES: Show some dusky color, but no edema. Abdominal ultrasound shows status post cholecystectomy. There is some ascites on the right side and the common bile duct measures 3 mm. ASSESSMENT: Increase in liver enzymes as well as AST and ALT with bilirubin of approximately 5 with negative ultrasound showing common bile duct of 3 mm. Specific physical exam is significant for hepatomegaly. I suspect she has passive congestion causing hepatomegaly and intraperitoneal ascites. There is no evidence of any biliary obstructive process given the common duct measures 3 mm in size. I doubt if she has any intrinsic liver disease. Her current INR is 2 suggests some degree of hepatic dysfunction. Other possibilities include transaminitis secondary to systemic infection or inflammation. RECOMMENDATIONS: 1. No other diagnostic evaluation is warranted from GI standpoint at the present time. 2. Vitamin K 10 mg subcu daily. 3. Follow up liver profile. 4. We will follow. Job ID: [id number]
[2018-11-15 23:26] LABS: Vancomycin, Random 10.8 ug/mL (See Comment)
--- NOTE | 2018-11-16 00:05 | CON ---
DATE OF CONSULTATION: 11/15/2018 CONSULTING PHYSICIAN: Dr. Doherty. REASON FOR CONSULTATION: Acute kidney injury and hyperkalemia. REASON FOR ADMISSION: Altered mentation. HISTORY OF PRESENT ILLNESS: A 53-year-old female who was brought to the hospital with altered mentation and was found to have hypoglycemia and elevated renal function. Nephrology was consulted. The patient was also intubated yesterday and she was found to have potassium of 6.0 with no improvement in medical management. PAST MEDICAL HISTORY: Positive for COPD, atrial fibrillation, atrial flutter, hypertension, hyperlipidemia, peripheral vascular disease, CHF, depression, urinary retention. PAST SURGICAL HISTORY: Bilateral oophorectomy, cholecystectomy, appendectomy, and tonsillectomy. HOME MEDICATIONS: Reviewed. ALLERGIES: ADHESIVE, FUROSEMIDE, AND PENICILLIN. SOCIAL HISTORY: She has 50-pack year of smoking. No alcohol or drug abuse. FAMILY HISTORY: Positive for CVA. REVIEW OF SYSTEMS: Could not be obtained due to intubation. PHYSICAL EXAMINATION: GENERAL: Well-built female, intubated. VITAL SIGNS: Temperature 97.5, pulse 99, respiratory rate 18, blood pressure 106/53. HEENT: Intubated. CVS: S1 and S2 heard. Regular rate and rhythm. RESPIRATORY: Clear. GASTROINTESTINAL: Abdomen is soft. MUSCULOSKELETAL: 1+ edema. DERMATOLOGIC: No skin rash. NEUROLOGIC: Alert and awake. PSYCHIATRIC: Mood and affect normal. LABORATORY DATA: Potassium is 5.1, BUN is 61, creatinine is 3.2. Potassium was 6.0. ASSESSMENT AND PLAN: 1. Acute kidney injury, renal function is getting better. She is making urine. 2. Hypokalemia, improving. 3. Metabolic acidosis, better. We will stop bicarbonate and start on NS. 4. Anemia. 5. Acute hypoxic respiratory failure. 6. The patient is making urine and labs are stable. We will continue to monitor. Avoid nephrotoxins. Renally dose medications. Continue supportive care. No acute indication for dialysis. We will follow. Job ID: [id number] MTDD
[2018-11-16] MEDS: Vancomycin HCl 750 MG in Sodium Chloride 0.9% 250 ML 250 ML IVPB SCH (01:36)
[2018-11-16] MEDS: Propofol 1,000 MG/100 ML VIAL IV PRN ×4 (01:46→20:04)
[2018-11-16 05:05] LABS: Magnesium 1.2 mg/dL (1.6-2.6)
[2018-11-16 05:17] LABS: #Lymphocytes 0.8 thou/uL (1.20-3.40); #Monocytes 0.1 thou/uL (0.11-0.59); #Neutrophils 6.4 thou/uL (1.40-6.50); %Eosinophils 0.1 % (0.0-10.0); %Lymphocytes 10.8 % (21.0-51.0); %Monocytes 1.5 % (0.0-10.0); %Neutrophils 87.6 % (42.0-75.0); Anisocytosis MODERATE=16-30 cells (100X) (0-5/hpf); Hemoglobin 10.6 g/dL (12.0-16.0); MDiff Complete? YES; Mean Corpuscular HGB CONC 29.1 g/dL (32.0-36.0); Mean Corpuscular Hemoglobin 22.1 pg (27.0-31.0); Mean Corpuscular Volume 75.8 fL (78.0-98.0); Mean Platelet Volume 8.1 fL (7.4-10.4); Ovalocytes SLIGHT = 2-5 cells (100X) (0-1/hpf); Platelet Count 194 thou/uL (130-400); RBC Distribution Width 21.5 % (11.5-14.5); Red Blood Cell (RBC) Count 4.79 mill/uL (4.20-5.40); White Blood Cell (WBC) Count 7.3 thou/uL (4.8-10.8)
[2018-11-16] MEDS: methylPREDNISolone Sod Succ 40 MG VIAL IVP SCH ×3 (05:39→18:32)
[2018-11-16 06:29] LABS: Anion Gap 21 mmol/L (10-20); BUN (Urea Nitrogen) 56 mg/dL (9.8-20.1); Calc. Creatinine Clearance 41 mL/min (70-130); Calcium 8.1 mg/dL (7.8-10.44); Carbon Dioxide 33 mmol/L (22-29); Chloride 87 mmol/L (98-107); Estimated GFR-MDRD 25; Glucose 164 mg/dL (70-105); Potassium 3.2 mmol/L (3.5-5.1); Sodium 138 mmol/L (136-145)
[2018-11-16] MEDS ORDERED: CCU Electrolyte Replacement 1 EACH FS ONE (06:58)
[2018-11-16] MEDS ORDERED: CCU ELECTROLYTE REPLACEMENT PROTOCOL FS PRN (07:05)
[2018-11-16] MEDS ORDERED: Potassium Chloride 20 MEQ TAB PO PRN (07:05)
[2018-11-16] MEDS ORDERED: Potassium Phosphate 9 MMOL in Sodium Chloride 0.9% 100 ML IVPB PRN (07:05)
[2018-11-16] MEDS ORDERED: Magnesium Oxide 400 MG TAB PO PRN ×2 (07:05)
[2018-11-16] MEDS ORDERED: Potassium Phosphate 12 MMOL in Sodium Chloride 0.9% 250 ML 250 ML IV PRN (07:05)
[2018-11-16] MEDS ORDERED: Potassium Chloride 40 MEQ in Sodium Chloride 0.9% 250 ML 250 ML IVPB PRN (07:05)
[2018-11-16] MEDS ORDERED: Potassium Phosphate 15 MMOL in Sodium Chloride 0.9% 250 ML 250 ML IV PRN (07:05)
[2018-11-16] MEDS ORDERED: PHOS-NAK 1 PKT PACK PO PRN ×2 (07:05)
--- NOTE | 2018-11-16 07:40 | PDOC.FM ---
- Subjective Subjective: Patient became agitated overnight and so her propofol was increased to 35, since that time she has been resting comfortably. Per the nurse around 11pm she began having episodes of non-sustained v-tach and then very frequent PVC's. - Objective MAR Reviewed: Yes Vital Signs & Weight: Vital Signs (12 hours) Pulse Resp 11/16/18 07:22 105 H 11/16/18 06:00 17 11/16/18 04:00 17 11/16/18 02:00 17 11/16/18 00:00 17 11/15/18 22:00 17 11/15/18 19:53 17 Weight Admit Weight 84.277 kg Weight 84.277 kg Most Recent Monitor Data Heart Rate from ECG 121 NIBP 108/49 NIBP BP-Mean 68 Respiration from ECG 17 SpO2 100 I&O: 11/15/18 11/16/18 11/17/18 06:59 06:59 06:59 Intake Total 2043 2098.6 Output Total 1230 4480 Balance 813 -2381.4 Result Diagrams: 11/16/18 04:30 11/16/18 04:30 Phys Exam - Physical Examination Constitutional: NAD (resting comfortably, sedated on ventilator) HEENT: PERRLA, moist MMs, sclera anicteric Respiratory: no wheezing, no rales, no rhonchi, clear to auscultation bilateral tachycardic, regular rhythm, no murmurs Gastrointestinal: soft, non-tender distended, no fluid wave Musculoskeletal: no edema sedated, responsive to speech and touch, not following commands Deviation from normal: erythematous, warm, indurated cellulitis on lower aspect of pannus Dx/Plan (1) Acute encephalopathy Code(s): G93.40 - ENCEPHALOPATHY, UNSPECIFIED Status: Acute (2) Acute and chronic respiratory failure with hypoxia Code(s): J96.21 - ACUTE AND CHRONIC RESPIRATORY FAILURE WITH HYPOXIA Status: Acute (3) Hyperkalemia Code(s): E87.5 - HYPERKALEMIA Status: Resolved (4) RADHA (acute kidney injury) Code(s): N17.9 - ACUTE KIDNEY FAILURE, UNSPECIFIED Status: Acute (5) Lactic acidosis Code(s): E87.2 - ACIDOSIS Status: Acute (6) COPD (chronic obstructive pulmonary disease) Status: Chronic Qualifiers: COPD type: unspecified COPD Qualified Code(s): J44.9 - Chronic obstructive pulmonary disease, unspecified (7) Pulmonary hypertension Code(s): I27.2 - OTHER SECONDARY PULMONARY HYPERTENSION * DO NOT USE * Status : Chronic (8) Hypoglycemia Code(s): E16.2 - HYPOGLYCEMIA, UNSPECIFIED Status: Acute (9) Coagulopathy Status: Acute (10) Elevated LFTs Code(s): R94.5 - ABNORMAL RESULTS OF LIVER FUNCTION STUDIES Status: Acute (11) History of atrial flutter Code(s): Z86.79 - PERSONAL HISTORY OF OTHER DISEASES OF THE CIRCULATORY SYSTEM Status: Chronic (12) High anion gap metabolic acidosis Code(s): E87.2 - ACIDOSIS Status: Acute (13) Cellulitis Code(s): L03.90 - CELLULITIS, UNSPECIFIED Status: Acute Qualifiers: Site of cellulitis: trunk Site of cellulitis of trunk: abdominal wall Qualified Code(s): L03.311 - Cellulitis of abdominal wall (14) Diabetes mellitus, type II Status: Chronic Qualifiers: Diabetes mellitus group home insulin use: without grey washer use Chronic kidney disease stage: stage 3 (moderate) (15) Hyperlipidemia Code(s): E78.5 - HYPERLIPIDEMIA, UNSPECIFIED Status: Chronic Qualifiers: Hyperlipidemia type: unspecified Qualified Code(s): E78.5 - Hyperlipidemia , unspecified (16) Hypertension Code(s): I10 - ESSENTIAL (PRIMARY) HYPERTENSION Status: Chronic Qualifiers: Hypertension type: essential hypertension Qualified Code(s): I10 - Essential (primary) hypertension (17) Hypokalemia Code(s): E87.6 - HYPOKALEMIA Status: Acute (18) Hypomagnesemia Code(s): E83.42 - HYPOMAGNESEMIA Status: Acute (19) UTI (urinary tract infection) due to Enterococcus Code(s): N39.0 - URINARY TRACT INFECTION, SITE NOT SPECIFIED; B95.2 - ENTEROCOCCUS THE CAUSE OF DISEASES CLASSIFIED ELSEWHERE Status: Acute - Plan Plan: Acute Metabolic Encephalopathy Multifactorial, primary concern multiorgan dysfunction syndrome, acute hypoxic resp failure, hypoglycemia Initial labs showed Lactic acid of 19, pH of 7.1, elevated WBC of 14, UA with WBC's and no organisms and cellulitis of pannus. Brain CT showed no acute process. ABG pH 7.44, pCO2 40.3, pO2 60.5 -Cont mechanical ventilation -Glucose checks WNL since admission -Hold metformin -Currently sedated with propofol 35 Acute on Chronic hypoxic respiratory failure Known hx of copd, tobacco abuse, diastolic dysfunction, pulmonary hypertension. No CO2 retention to suggest COPD exacerbation at this time. Currently intubated and oxygenating appropriately. SIMV: rate 17, TV 430mL, Pressure Support 21, PEEP 9, FiO2 75% Repeat ABG yesterday shows improved pH -ABG pending for today -Lasix gtt at 5 for concern for fluid overload with elevated CVP's. Pt diuresing well at net -2381mL in past 24 hours -Pulm on board, appreciate recs Hypoglycemia Glucose initially undetectable. s/p glucose and an amp of D50. Was on D10W and q1h accuchecks -WNL since admission to ICU -Hold home meds Septic Shock Pt with elevated WBC count to 14, lactic acidosis to 19.6, concern for cellulitis of pannus and Enterococcus UTI. s/p fluid resuscitation. Lactic acid has downtrended to 3.5. Procalcitonin 1.6->1.08 -Blood cultures pending, UCx showed enterococcus -Meropenem and Vanc, can tailor abx -On levophed 9, dobutamine 2.5 -Continue solucortef Enterococcus UTI UCX showed 50-75K CFU of enterococcus faecalis that was hdz-sensitive -Will wean abx today, currently on meropenem and vanc Anion Gap Metabolic Acidosis Pt initially with pH 7.12, bicarb 14, pCO2 44, anion gap 35. Lactic acid 19.6. Pt was not able to compensate appropriately for metabolic acidosis, which is likely what triggered respiratory failure. This is likely 2/2 lactic acidosis from septic shock vs severe hypoglycemia -Improving s/p bicarb -Will continue to trend lactic acid and ABG -Continue mechanical ventilation RADHA on CKD Cr at 3x usual baseline. Baseline 1, Cr of 3.86 on admission. Possibly elevated due to septic shock. Improving slowly and pt is making urine. -Ashley with Nephro consulted, appreciate recs -Dose abx to kidney function -Trialysis catheter placed on 11/15 in R fem -Continue to monitor Hyperkalemia, resolved Initially 6, has resolved and is now hypokalemic, likely 2/2 lasix gtt -Dr. Ramirez has been consulted, appreciate recs -Dr. Valle was consulted for trialysis catheter placement, which was done in R fem on 11/15. Shock Liver, suspected AST, ALT, and t. bili elevated and trending up. On 11/15: AST 422, ALT 160, t. bili 4.6. This could be 2/2 septic shock with end organ failure. Pt s/p cholecystectomy. Abd US showed some perihepatic ascites and hepatosplenomegaly. -Will continue to trend. -GI consulted, added vitamin K Lactic Acidosis LA elevated to 19.6, has downtrended to 3.5. Likely 2/2 hypoglycemia -Will continue to trend Coagulopathy Pt has been oozing from central line placement in L IJ. INR elevated to 2.4. Pt not on any blood thinners per medication list, only aspirin. Platelets WNL. This could be 2/2 Shock liver -Will continue to monitor -Vitamin K per GI COPD Chronic issue. Currently intubated and oxygenating appropriately. -Will continue home nebs Pulmonary HTN Pt chronically requires oxygen, currently at FiO2 75% on vent -Monitor -Continue ventilation HTN -Hold home HTN meds at this time due to hypotension from sepsis. Code Status: Full VTE ppx: None as pt currently coagulopathic, will monitor GI ppx: Protonix Lines/Tubes: L IJ CVC 11/14, R femoral trialysis cath 11/15, bagley 11/14, ET tube , OG tube 11/14 Dipso: continue to monitor in ICU Addendum - Attending - Attending Attestation Date/Time: 11/16/18 [id number] I personally evaluated the patient and discussed the management with Dr. Cruz I agree with the History, Examination, Assessment and Plan documented above with any addition or exceptions noted below. Acute encephalopathy- multifactoral. Patient sedated but does open eyes and move extremities spontaneously Acute on chronic hypoxic respiratory failure- Probably secondary to Pulm HTN secondary to COPD- O2 requirements have decreased significantly. Continue vent support per pulmonology. Patient started on IV lasix and dobutamine per pulm. RADHA- Cr improved and urine output remains good. Appreciate renal recs. Frequent PVCs- will consult cardiology. Hypotension most likely secondary to cardiogenic shock vs septic shock. On Meropenem and Vanc- continue for 48 hours and then deescalate. On dobutamine and levophed gtt. Wean levo to keep MAP >65 Liver failure- consistent with shock liver as improvement today in bili and INR [id number] hypoglycemia Appreciate specialist recommendations.
[2018-11-16] MEDS: Potassium Chloride 40 MEQ in Premix Bag 1 BAG IVPB PRN ×2 (08:16→17:35)
[2018-11-16] MEDS: Magnesium 2 GM/50 ML 2 GM in Premix Bag 1 BAG IVPB PRN ×2 (08:16→22:17)
[2018-11-16] MEDS ORDERED: Phytonadione 10 MG/ML AMP SC SCH (09:00)
[2018-11-16] MEDS: HumaLOG 300 UNITS/3 ML VIAL SC PRN ×4 (09:06→20:39)
[2018-11-16 09:08] LABS: ALT (SGPT) 178 U/L (8-55); AST (SGOT) 244 U/L (5-34); Albumin 3.4 g/dL (3.5-5.0); Alkaline Phosphatase 90 U/L (40-150); Bilirubin, Direct 2.4 mg/dL (0.1-0.3); Protein, Total 6.1 g/dL (6.0-8.3)
[2018-11-16 09:12] LABS: INR-International Normal Ratio 1.5; PTT 28.1 SEC (22.9-36.1); Prothrombin Time 18.1 SEC (12.0-14.7)
[2018-11-16 09:30] LABS: CKMB 2.6 ng/mL (0-6.6)
[2018-11-16] MEDS: Meropenem 500 MG in Sodium Chloride 0.9% 100 ML IVPB SCH ×2 (09:44→20:38)
[2018-11-16] MEDS: Pantoprazole 40 MG VIAL IVP SCH (09:45)
[2018-11-16] MEDS: Phytonadione 10 MG/ML AMP SC SCH (09:46)
[2018-11-16] MEDS ORDERED: Potassium Chloride 40 MEQ in Premix Bag 1 BAG IVPB SCH (10:30)
--- NOTE | 2018-11-16 12:53 | PRG ---
DATE OF SERVICE: 11/16/2018 SUBJECTIVE: Patient was seen and examined at bedside and overnight events noted. Patient denies any shortness of breath or chest pain or palpitation. No history of nausea or vomiting or diarrhea or fever or chills or cramps. OBJECTIVE: GENERAL: This is a well-built female, intubated, seen in the ICU. VITAL SIGNS: Temperature 97.5. Pulse 105. Respiratory rate 18. Blood pressure 108/40. HEENT: Intubated. CARDIOVASCULAR: S1, S2 heard. RESPIRATORY: Clear. GASTROINTESTINAL: Abdomen is soft. MUSCULOSKELETAL: +1 edema. DERMATOLOGIC: No skin rash. NEUROLOGIC: Intubated. LABORATORY DATA: Potassium 3.2, BUN is 56, creatinine is 2.1. ASSESSMENT AND PLAN: 1. Acute kidney injury, getting better. 2. Hypokalemia. Replace and monitor closely. 3. Metabolic acidosis, anemia. 4. Acute hypoxic respiratory failure. Overall renal function seems to be getting better. Avoid nephrotoxins. We will follow. Job ID: [id number]
[2018-11-16 16:07] LABS: Magnesium 1.5 mg/dL (1.6-2.6); Potassium 3.3 mmol/L (3.5-5.1)
--- NOTE | 2018-11-16 16:48 | PRG ---
DATE OF SERVICE: 11/16/2018 SUBJECTIVE: The patient remains intubated and sedated. She is now off Levophed. No acute event overnight. PHYSICAL EXAMINATION: VITAL SIGNS: Temperature is 100.8, blood pressure 93/52, pulse of 95. GENERAL: She is sedated, intubated. HEENT: shows anicteric sclerae. CV: Shows normal S1 and S2. Regular rate and rhythm. CHEST: Shows breath sounds. ABDOMEN: Mildly protuberant, but soft. No distention. No tympany. She has active bowel sounds. The patient has palpable hepatomegaly. EXTREMITIES: Exam does not show any edema. LABORATORY DATA: WBCs 7.3, hemoglobin 10.6, and platelet count 194. INR is 1.5. Bilirubin is 3.0, AST 244, ALT 178, alkaline phosphatase 90. ASSESSMENT: Elevation of liver enzymes and bilirubin, most likely from passive congestion and systemic inflammatory response. I doubt that she has any hypovolemic shock liver. There appears to be some hepatic synthetic derangement, but overall, no significant impairment. Abdominal ultrasound does not show any biliary obstructive process. She does have some ascites and physical exam notable for hepatomegaly. RECOMMENDATIONS: 1. Continue vitamin K 10 mg subcu daily. 2. We will start on enteral feeding. 3. Continue to trend liver function tests, we will follow. Job ID: [id number]
[2018-11-16] MEDS ORDERED: Morphine 2 MG/ML SYRINGE SLOW IVP PRN (17:00)
--- NOTE | 2018-11-16 18:55 | PRG ---
DATE OF SERVICE: 11/16/2018 SUBJECTIVE: Ms. Valdovinos's events have been reviewed. She is sedated for ventilation. OBJECTIVE: VITAL SIGNS: Heart rates in the 90s, blood pressure 93/49, and respiratory rate 17. LUNGS: Distant clear. HEART: Regular rhythm. ABDOMEN: Soft and nontender without guarding. EXTREMITIES: Chronic stasis changes. LABORATORY DATA: White count 7.3, hemoglobin 10.6, platelets 194. Sodium 138, potassium 3.2, chloride 87, bicarb 33, BUN 56, creatinine 2.1 down from 3.8. Bilirubin is 3.0, AST is 244, and ALT is 178. IMPRESSION: 1. Advanced steroid-dependent chronic obstructive pulmonary disease. 2. Respiratory bronchiolitis, proven by surgical biopsy. 3. Ongoing heavy tobacco use. 4. History of medical noncompliance. 5. History of self-medication with prednisone at home. 6. Chronic kidney disease. 7. Elevated liver enzymes with hyperbilirubinemia. 8. Ascites on ultrasound, likely secondary to right heart failure secondary to pulmonary hypertension, which is secondary to her severe obstructive lung disease. 9. Diabetes. 10. Sleep apnea. 11. History of aortic occlusion with aorto-fem bypass. 12. History of atrial flutter. 13. History of chronic pain/fibromyalgia. 14. Degenerative arthritis. Prognosis is dismal. Blood gas today shows pH 7.44, CO2 of 40, and pO2 of 60, start slowly working towards weaning. CRITICAL CARE TIME: 30 minutes. Job ID: [id number]
--- NOTE | 2018-11-16 20:23 | CON ---
DATE OF CONSULTATION: HISTORY OF PRESENT ILLNESS: Chyna Valdovinos is a 53-year-old white female with history of chronic hypoxic respiratory failure. She has had a history of atrial flutter ablation by Dr. Gan earlier this year. She now apparently was found down at home, brought to the emergency room and has been intubated. She can provide no history. PAST MEDICAL HISTORY: COPD, diastolic dysfunction, atrial flutter, normal Cardiolite in April 2018, GERD, peripheral vascular disease, anxiety, obstructive sleep apnea on CPAP, diabetes, hypertension, chronic kidney disease, hyperlipidemia, and history of fibromyalgia. PAST SURGICAL HISTORY: Atrial flutter radiofrequency ablation, bilateral oophorectomy, cholecystectomy, appendectomy, left knee surgery twice, tonsillectomy, and CABG in 2017. SOCIAL HISTORY: She continues to smoke. She does not drink alcohol. MEDICATIONS: As noted in the chart. REVIEW OF SYSTEMS: Unobtainable. ALLERGIES: PENICILLIN, LYRICA, AND ADHESIVES. PHYSICAL EXAMINATION: VITAL SIGNS: Blood pressure 93/49, pulse of 97. She is in sinus rhythm with frequent PACs. She currently is on a dobutamine drip. CHEST: Reveals bilateral rhonchi. CARDIOVASCULAR: S1 and S2 are normal without any S3, S4, or murmurs. ABDOMEN: Normal bowel sounds without tenderness or organomegaly. EXTREMITIES: Revealed no clubbing, cyanosis, or edema. NEUROLOGIC: The patient is sedated. LABORATORY DATA: EKG reveals normal sinus rhythm with right bundle-branch block , low voltage, nonspecific T-wave changes. Hemoglobin 10.6, hematocrit 36.3, white count 7300, platelets 194,000. INR 1.5. AST 244, ALT 178. Troponin I 0.055, chronically elevated troponin I. Sodium 138, potassium 3.2, chloride 87, carbon dioxide 33, BUN 56, and creatinine 2.10. Urine is growing Enterococcus faecalis. IMPRESSION: 1. Acute on chronic hypoxic respiratory failure, on home O2. 2. Interstitial lung disease. 3. Pulmonary hypertension. 4. Probable septic shock. 5. Acute kidney injury. 6. Status post flutter ablation 3 months ago. 7. Hepatic congestion. 8. Obstructive sleep apnea. 9. Diabetes. 10. Hyperlipidemia. PLAN: The patient had normal Cardiolite in the office in April 2018 and has had normal left ventricular function in the past. Most significant problem appears to be a chronic hypoxemia and pulmonary artery hypertension. There are no specific cardiac recommendations offered at this time. We will continue to follow the patient with you. Job ID: [id number] [facility]
[2018-11-17] MEDS: methylPREDNISolone Sod Succ 40 MG VIAL IVP SCH ×4 (00:27→18:01)
[2018-11-17] MEDS: HumaLOG 300 UNITS/3 ML VIAL SC PRN ×5 (00:49→16:04)
[2018-11-17] MEDS: Vancomycin HCl 750 MG in Sodium Chloride 0.9% 250 ML 250 ML IVPB SCH (00:50)
[2018-11-17] MEDS: Propofol 1,000 MG/100 ML VIAL IV PRN ×4 (01:56→18:01)
[2018-11-17 04:12] LABS: #Lymphocytes 0.7 thou/uL (1.20-3.40); #Monocytes 0.2 thou/uL (0.11-0.59); #Neutrophils 3.5 thou/uL (1.40-6.50); %Basophils 0.1 % (0.0-1.0); %Eosinophils 0.1 % (0.0-10.0); %Lymphocytes 15.9 % (21.0-51.0); %Monocytes 4.7 % (0.0-10.0); %Neutrophils 79.2 % (42.0-75.0); Hemoglobin 9.7 g/dL (12.0-16.0); Mean Platelet Volume 6.5 fL (7.4-10.4); Platelet Count 155 thou/uL (130-400); RBC Distribution Width 21.2 % (11.5-14.5); Red Blood Cell (RBC) Count 4.41 mill/uL (4.20-5.40); White Blood Cell (WBC) Count 4.4 thou/uL (4.8-10.8)
[2018-11-17 04:16] LABS: Phosphorus 3.1 mg/dL (2.3-4.7)
[2018-11-17] MEDS: DOBUTamine 500 mg/250 ml 250 ML IVPB SCH (04:20)
[2018-11-17 04:23] LABS: ALT (SGPT) 147 U/L (8-55); AST (SGOT) 143 U/L (5-34); Albumin 3.4 g/dL (3.5-5.0); Alkaline Phosphatase 80 U/L (40-150); BUN (Urea Nitrogen) 58 mg/dL (9.8-20.1); Bilirubin, Total 2.8 mg/dL (0.2-1.2); Calc. Creatinine Clearance 57 mL/min (70-130); Calcium 8.2 mg/dL (7.8-10.44); Estimated GFR-MDRD 36; Globulin 2.6 g/dL (2.4-3.5); Glucose 202 mg/dL (70-105); Magnesium 2.4 mg/dL (1.6-2.6)
[2018-11-17 04:33] LABS: Anion Gap 20 mmol/L (10-20); Carbon Dioxide 35 mmol/L (22-29); Chloride 89 mmol/L (98-107); Sodium 141 mmol/L (136-145)
[2018-11-17 04:43] LABS: Potassium 2.8 mmol/L (3.5-5.1)
[2018-11-17] MEDS: Potassium Chloride 40 MEQ in Premix Bag 1 BAG IVPB PRN ×2 (06:01→15:58)
--- NOTE | 2018-11-17 09:08 | PDOC.FM ---
- Subjective Subjective: Patient has been improving. She is more responsive this AM, opens her eyes to sound and follows commands. - Objective MAR Reviewed: Yes Vital Signs & Weight: Vital Signs (12 hours) Pulse Resp 11/17/18 07:30 103 H 11/17/18 06:00 17 11/17/18 04:00 17 11/17/18 02:00 17 11/17/18 00:00 17 11/16/18 22:00 17 Weight Admit Weight 84.277 kg Weight 84.277 kg Most Recent Monitor Data Heart Rate from ECG 101 NIBP 119/60 NIBP BP-Mean 79 Respiration from ECG 17 SpO2 94 I&O: 11/16/18 11/17/18 11/18/18 06:59 06:59 06:59 Intake Total 2098.6 2211.2 Output Total 4480 3395 Balance -2381.4 -1183.8 Result Diagrams: 11/17/18 03:35 11/17/18 13:15 Phys Exam - Physical Examination Constitutional: NAD (resting comfortably on ventilator, sedated with propofol) HEENT: PERRLA, moist MMs, sclera anicteric Respiratory: no wheezing, no rales, no rhonchi, clear to auscultation bilateral Cardiovascular: RRR, no rub 3/6 systolic murmu Gastrointestinal: soft, non-tender, positive bowel sounds mildly distended Musculoskeletal: no edema, pulses present sedated, able to follow commands Deviation from normal: erythematous, indurated, warm area on abdomen improving from prior Dx/Plan (1) Acute encephalopathy Code(s): G93.40 - ENCEPHALOPATHY, UNSPECIFIED Status: Acute (2) Acute and chronic respiratory failure with hypoxia Code(s): J96.21 - ACUTE AND CHRONIC RESPIRATORY FAILURE WITH HYPOXIA Status: Acute (3) Hyperkalemia Code(s): E87.5 - HYPERKALEMIA Status: Resolved (4) RADHA (acute kidney injury) Code(s): N17.9 - ACUTE KIDNEY FAILURE, UNSPECIFIED Status: Acute (5) COPD (chronic obstructive pulmonary disease) Status: Chronic Qualifiers: COPD type: unspecified COPD Qualified Code(s): J44.9 - Chronic obstructive pulmonary disease, unspecified (6) Pulmonary hypertension Code(s): I27.2 - OTHER SECONDARY PULMONARY HYPERTENSION * DO NOT USE * Status : Chronic (7) Hypoglycemia Code(s): E16.2 - HYPOGLYCEMIA, UNSPECIFIED Status: Resolved (8) Coagulopathy Status: Acute (9) Elevated LFTs Code(s): R94.5 - ABNORMAL RESULTS OF LIVER FUNCTION STUDIES Status: Acute (10) History of atrial flutter Code(s): Z86.79 - PERSONAL HISTORY OF OTHER DISEASES OF THE CIRCULATORY SYSTEM Status: Chronic (11) High anion gap metabolic acidosis Code(s): E87.2 - ACIDOSIS Status: Acute (12) Cellulitis Code(s): L03.90 - CELLULITIS, UNSPECIFIED Status: Acute Qualifiers: Site of cellulitis: trunk Site of cellulitis of trunk: abdominal wall Qualified Code(s): L03.311 - Cellulitis of abdominal wall (13) Diabetes mellitus, type II Status: Chronic Qualifiers: Diabetes mellitus process supervisor insulin use: without longterm use Chronic kidney disease stage: stage 3 (moderate) (14) Hyperlipidemia Code(s): E78.5 - HYPERLIPIDEMIA, UNSPECIFIED Status: Chronic Qualifiers: Hyperlipidemia type: unspecified Qualified Code(s): E78.5 - Hyperlipidemia , unspecified (15) Hypertension Code(s): I10 - ESSENTIAL (PRIMARY) HYPERTENSION Status: Chronic Qualifiers: Hypertension type: essential hypertension Qualified Code(s): I10 - Essential (primary) hypertension (16) Hypokalemia Code(s): E87.6 - HYPOKALEMIA Status: Acute (17) Hypomagnesemia Code(s): E83.42 - HYPOMAGNESEMIA Status: Acute (18) UTI (urinary tract infection) due to Enterococcus Code(s): N39.0 - URINARY TRACT INFECTION, SITE NOT SPECIFIED; B95.2 - ENTEROCOCCUS THE CAUSE OF DISEASES CLASSIFIED ELSEWHERE Status: Acute - Plan Plan: Acute Metabolic Encephalopathy, improving Multifactorial, primary concern multiorgan dysfunction syndrome, acute hypoxic resp failure, hypoglycemia Initial labs showed Lactic acid of 19, pH of 7.1, elevated WBC of 14, UA with WBC's and no organisms and cellulitis of pannus. Brain CT showed no acute process. ABG pending for this AM -Cont mechanical ventilation -Glucose checks WNL since admission -Hold metformin -Currently sedated with propofol 30 Acute on Chronic hypoxic respiratory failure Known hx of copd, tobacco abuse, diastolic dysfunction, pulmonary hypertension. No CO2 retention to suggest COPD exacerbation at this time. Currently intubated and oxygenating appropriately. SIMV: rate 14, TV 430mL, Pressure Support 12, PEEP 5, FiO2 80%, pt oxygen requirements increased this morning, currently satting in the high 80s. -ABG pending for today -Lasix gtt increased to 5.5 due to the increased oxygen requirements this AM. concern for fluid overload with elevated CVP's. Pt diuresing well at net -3L since admission -Pulm on board, appreciate recs Hypoglycemia Glucose initially undetectable. s/p glucose and an amp of D50. Was on D10W and q1h accuchecks -WNL since admission to ICU -Hold home meds Septic Shock, improving Pt with elevated WBC count to 14, lactic acidosis to 19.6, concern for cellulitis of pannus and Enterococcus UTI. s/p fluid resuscitation. Lactic acid has downtrended to 1.1. Procalcitonin 1.6->1.08->0.67 -Blood cultures pending, UCx showed enterococcus faecalis -Meropenem and Vanc, will stop meropenem this AM -dobutamine 2.5, has been weaned off levophed -Continue solucortef Enterococcus UTI UCX showed 50-75K CFU of enterococcus faecalis that was hdz-sensitive -Currently on meropenem and vanc, will stop meropenem this AM Anion Gap Metabolic Acidosis Pt initially with pH 7.12, bicarb 14, pCO2 44, anion gap 35. Lactic acid 19.6. Pt was not able to compensate appropriately for metabolic acidosis, which is likely what triggered respiratory failure. This is likely 2/2 lactic acidosis from septic shock vs severe hypoglycemia -Improving s/p bicarb -Will continue to trend ABG -Continue mechanical ventilation RADHA on CKD Cr at 3x usual baseline. Baseline 1, Cr of 3.86 on admission. Possibly elevated due to septic shock. Improving slowly and pt is making urine. -Ashley with Nephro consulted, appreciate recs -Dose abx to kidney function -Trialysis catheter placed on 11/15 in R fem -Continue to monitor Hyperkalemia, resolved Initially 6, has resolved and is now hypokalemic, likely 2/2 lasix gtt -Dr. Ramirez has been consulted, appreciate recs -Dr. Valle was consulted for trialysis catheter placement, which was done in R fem on 11/15. Shock Liver, suspected AST, ALT, and t. bili elevated and trending up. On 11/15: AST 422, ALT 160, t. bili 4.6. This could be 2/2 septic shock with end organ failure. Pt s/p cholecystectomy. Abd US showed some perihepatic ascites and hepatosplenomegaly. LFT's improving. -Will continue to trend. -GI consulted, added vitamin K Lactic Acidosis, resolved LA elevated to 19.6, has downtrended to 1.1. Likely 2/2 hypoglycemia Coagulopathy Pt has been oozing from central line placement in L IJ. INR elevated to 2.4. Pt not on any blood thinners per medication list, only aspirin. Platelets WNL. This could be 2/2 Shock liver, PT/PTT improving -Will continue to monitor -Vitamin K per GI COPD Chronic issue. Currently intubated and oxygenating appropriately. -Will continue home nebs Pulmonary HTN Pt chronically requires oxygen, currently at FiO2 75% on vent -Monitor -Continue ventilation HTN -Hold home HTN meds at this time due to hypotension from sepsis. Code Status: Full VTE ppx: Will start heparin as coagulopathy improving GI ppx: Protonix Lines/Tubes: L IJ CVC 11/14, R femoral trialysis cath 11/15, bagley 11/14, ET tube , OG tube 11/14 Dipso: continue to monitor in ICU Addendum - Attending - Attending Attestation Date/Time: 11/17/18 4838 I personally evaluated the patient and discussed the management with Dr. Cruz I agree with the History, Examination, Assessment and Plan documented above with any addition or exceptions noted below. Acute hypoxic resp failure secondary to COPD/Pulm HTN/Cor Pulmonale- on lasix and dobutamine gtt. Appreciate pulm recs RADHA- improving slowly Acute shock liver- improving daily Enterococcus UTI- continue vanc. d/c meropenem Chronic tobacco use
[2018-11-17] MEDS: Meropenem 500 MG in Sodium Chloride 0.9% 100 ML IVPB SCH (09:53)
[2018-11-17] MEDS: Furosemide 100 MG in Sodium Chloride 0.9% 100 ML IVPB SCH (09:53)
[2018-11-17] MEDS: Phytonadione 10 MG/ML AMP SC SCH (09:57)
[2018-11-17] MEDS: Pantoprazole 40 MG VIAL IVP SCH (09:59)
--- NOTE | 2018-11-17 10:19 | PRG ---
DATE OF SERVICE: 11/17/2018 SUBJECTIVE: Ms. Valdovinos remains sedated for mechanical ventilation. OBJECTIVE: VITAL SIGNS: Blood pressure 115/56, heart rate 100, respiratory rate 20. She is afebrile. LUNGS: Distant with slightly prolonged expiratory phase. HEART: Regular rhythm. ABDOMEN: Soft. EXTREMITIES: Without asymmetry. LABORATORY DATA: White count 4.4, hemoglobin 9.7, platelets 155. Sodium 141, potassium 2.8, chloride 89, bicarb 35, BUN 58, creatinine 1.5. PH 7.44, CO2 40, PO2 of 60. IMAGING: She had not had a chest x-ray in several days. IMPRESSION: 1. Respiratory failure. Hopefully, she will wean slowly. 2. End-stage chronic obstructive pulmonary disease. 3. History of medical noncompliance. 4. Ongoing tobacco use. 5. Respiratory bronchiolitis. 6. [id number] respiratory failure with hypoxia and hypercarbia. 7. Her prognosis is quite poor. We will work on slow weaning from mechanical ventilation. CRITICAL CARE TIME: 30 minutes. Job ID: [id number]
[2018-11-17 13:48] LABS: BUN (Urea Nitrogen) 60 mg/dL (9.8-20.1); Calc. Creatinine Clearance 56 mL/min (70-130); Calcium 8.7 mg/dL (7.8-10.44); Estimated GFR-MDRD 36; Glucose 186 mg/dL (70-105)
[2018-11-17 13:49] LABS: Chloride 91 mmol/L (98-107); Potassium 3.3 mmol/L (3.5-5.1); Sodium 144 mmol/L (136-145)
[2018-11-17 13:51] LABS: Actual Bicarbonate (HCO3a) 39.1 mEq/L (22-28); CO2 Tension 46.5 mmHg (35.0-45.0); Calcium, Ionized 1.03 mmol/L (1.12-1.30); Carboxyhemoglobin (COHb) 1.7 gm% (0.0-3.0); Hemoglobin (Hb) 10.6 g/dL (12.0-16.0); O2 Tension (PaO2) 63.4 mmHg (80.0-100.0); Potassium - ABG Lab 3.14 mmol/L (3.70-5.30); pH, Arterial 7.54 (7.35-7.45)
[2018-11-17 13:55] LABS: Puncture Site RRA
[2018-11-17 13:56] LABS: ALV-art Gradient 448.875 (0-20)
[2018-11-17 14:23] LABS: Anion Gap 20 mmol/L (10-20); Carbon Dioxide 36 mmol/L (22-29)
[2018-11-17] MEDS: Heparin 5,000 UNITS/ML VIAL SC SCH ×2 (15:59→20:44)
--- NOTE | 2018-11-17 17:20 | PRG ---
DATE OF SERVICE: 11/17/2018 SUBJECTIVE: No new event noted. She is tolerating tube feeding currently at 15 mL an hour. Zero residual. The patient is still sedated and ventilated. PHYSICAL EXAMINATION: VITAL SIGNS: Temperature is 99.8, blood pressure 108/58, and pulse of 98. GENERAL: She is sedated, on ventilator. HEAD AND NECK: Anicteric sclerae. CV: Shows normal S1 and S2. Regular rate and rhythm. CHEST: Shows bilateral breath sounds. ABDOMEN: Soft, mildly protuberant. No distention. No tympany. She has active bowel sounds. EXTREMITIES: Shows no edema. LABORATORY DATA: WBC is 4.4, hemoglobin 9.7, and platelet count of 155. Bilirubin is 2.8, AST 143, ALT 147. ASSESSMENT: 1. Elevation of liver enzymes and bilirubin, likely combination of liver congestion and systemic inflammatory response. There is no evidence of biliary obstruction on ultrasound. She does not have shock liver. There is mild hepatic synthetic dysfunction, but overall remains intact. She does have some ascites on ultrasound and abdominal exam notable for some hepatomegaly. Overall, she is stable from GI standpoint. 2. Nutrition, tolerating low rate tube feeding. We will increase the rate. RECOMMENDATION: 1. Continue vitamin K 10 mg daily x2 more days. 2. Increase tube feeding rate. 3. Continue to follow. Dr. Lisa to cover for GI service this weekend. Job ID: [id number]
--- NOTE | 2018-11-17 18:47 | PRG ---
DATE OF SERVICE: 11/17/2018 SUBJECTIVE: The patient was seen and examined in the ICU. Remains intubated. OBJECTIVE: GENERAL: This is a well-built female, in no apparent distress. VITAL SIGNS: Temperature 99.8, pulse 100, respiratory rate 18, blood pressure 108/58. HEENT: Intubated. CARDIOVASCULAR: S1, S2 heard. RESPIRATORY: Clear. GASTROINTESTINAL: Abdomen is soft. MUSCULOSKELETAL: 1+ edema. DERMATOLOGIC: No skin rash. NEUROLOGIC: Intubated. LABORATORY DATA: Potassium is 3.3, BUN is 60, creatinine is 1.5. ASSESSMENT: 1. Acute kidney injury, getting better. She is making good urine output. 2. Hypokalemia with hypomagnesemia, replace. 3. Metabolic acidosis. 4. Acute hypoxic respiratory failure. 5. Continue supportive care. Avoid nephrotoxins. Job ID: [id number]
[2018-11-18] MEDS: methylPREDNISolone Sod Succ 40 MG VIAL IVP SCH ×4 (00:16→18:26)
[2018-11-18] MEDS: Propofol 1,000 MG/100 ML VIAL IV PRN ×3 (00:16→13:28)
[2018-11-18 00:38] LABS: Vancomycin, Trough 12.5 ug/mL
[2018-11-18] MEDS: Vancomycin HCl 750 MG in Sodium Chloride 0.9% 250 ML 250 ML IVPB SCH (01:07)
[2018-11-18 04:28] LABS: #Lymphocytes 0.6 thou/uL (1.20-3.40); #Monocytes 0.3 thou/uL (0.11-0.59); #Neutrophils 3.7 thou/uL (1.40-6.50); %Basophils 0.4 % (0.0-1.0); %Eosinophils 0.1 % (0.0-10.0); %Lymphocytes 13.5 % (21.0-51.0); %Monocytes 6.7 % (0.0-10.0); %Neutrophils 79.3 % (42.0-75.0); Hemoglobin 10.3 g/dL (12.0-16.0); Mean Corpuscular HGB CONC 29.3 g/dL (32.0-36.0); Mean Platelet Volume 8.2 fL (7.4-10.4); Platelet Count 142 thou/uL (130-400); RBC Distribution Width 21.5 % (11.5-14.5); White Blood Cell (WBC) Count 4.7 thou/uL (4.8-10.8)
[2018-11-18 04:45] LABS: ALT (SGPT) 114 U/L (8-55); AST (SGOT) 72 U/L (5-34); Albumin 3.5 g/dL (3.5-5.0); Alkaline Phosphatase 80 U/L (40-150); BUN (Urea Nitrogen) 74 mg/dL (9.8-20.1); Bilirubin, Total 2.7 mg/dL (0.2-1.2); Calc. Creatinine Clearance 52 mL/min (70-130); Estimated GFR-MDRD 32; Globulin 2.6 g/dL (2.4-3.5); Glucose 244 mg/dL (70-105); Magnesium 2.1 mg/dL (1.6-2.6); Protein, Total 6.1 g/dL (6.0-8.3)
[2018-11-18 04:54] LABS: Chloride 92 mmol/L (98-107); Phosphorus 3.8 mg/dL (2.3-4.7); Potassium 3.4 mmol/L (3.5-5.1); Sodium 144 mmol/L (136-145)
[2018-11-18 04:57] LABS: Anion Gap 23 mmol/L (10-20); Carbon Dioxide 32 mmol/L (22-29)
--- NOTE | 2018-11-18 05:59 | PDOC.FM ---
- Subjective Subjective: No acute events overnight. All drips stable and unchanged. Nursing states that she will respond when sedation is weaned and follow simple commands. Nursing also reports that she had oozing with heparin administration last night. - Objective MAR Reviewed: Yes Vital Signs & Weight: Vital Signs (12 hours) Temp Pulse Resp Pulse Ox 11/18/18 02:33 96 11/17/18 22:08 98 11/17/18 20:00 98.2 F 18 89 L 11/17/18 18:33 88 11/17/18 18:00 98.4 F Weight Admit Weight 84.277 kg Weight 84.277 kg Most Recent Monitor Data Heart Rate from ECG 97 NIBP 121/59 NIBP BP-Mean 79 Respiration from ECG 21 SpO2 89 I&O: 11/16/18 11/17/18 11/18/18 06:59 06:59 06:59 Intake Total 2098.6 2211.2 1321.4 Output Total 4480 3395 1132 Balance -2381.4 -1183.8 189.4 Result Diagrams: 11/18/18 04:15 11/18/18 04:15 EKG Reviewed by me: Yes Radiology Reviewed by me: Yes Phys Exam - Physical Examination Constitutional: NAD HEENT: PERRLA, moist MMs, sclera anicteric Neck: no JVD, supple ET tube in place, L IJ in place diffuse coarse breath sounds, R>L RRR with intermittent PAC, borderline tachycardia Gastrointestinal: soft, no distention, positive bowel sounds slight fluid wave, hepatomegaly Musculoskeletal: no edema clubbing of nails Deviation from normal: sedated on propofol Deviation from normal: bruising on abdomen Dx/Plan (1) Acute and chronic respiratory failure with hypoxia Code(s): J96.21 - ACUTE AND CHRONIC RESPIRATORY FAILURE WITH HYPOXIA Status: Acute (2) Acute encephalopathy Code(s): G93.40 - ENCEPHALOPATHY, UNSPECIFIED Status: Acute (3) Coagulopathy Status: Acute (4) Elevated LFTs Code(s): R94.5 - ABNORMAL RESULTS OF LIVER FUNCTION STUDIES Status: Acute (5) Hypomagnesemia Code(s): E83.42 - HYPOMAGNESEMIA Status: Acute (6) Severe sepsis Code(s): A41.9 - SEPSIS, UNSPECIFIED ORGANISM; R65.20 - SEVERE SEPSIS WITHOUT SEPTIC SHOCK Status: Acute (7) UTI (urinary tract infection) due to Enterococcus Code(s): N39.0 - URINARY TRACT INFECTION, SITE NOT SPECIFIED; B95.2 - ENTEROCOCCUS THE CAUSE OF DISEASES CLASSIFIED ELSEWHERE Status: Acute (8) RADHA (acute kidney injury) Code(s): N17.9 - ACUTE KIDNEY FAILURE, UNSPECIFIED Status: Acute (9) COPD with acute exacerbation Code(s): J44.1 - CHRONIC OBSTRUCTIVE PULMONARY DISEASE W (ACUTE) EXACERBATION Status: Acute (10) Diabetes mellitus, type II Status: Chronic Qualifiers: Diabetes mellitus 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 use: without snf use Chronic kidney disease stage: stage 3 (moderate) (11) History of atrial flutter Code(s): Z86.79 - PERSONAL HISTORY OF OTHER DISEASES OF THE CIRCULATORY SYSTEM Status: Chronic (12) Hx of past noncompliance Code(s): Z91.19 - PATIENT'S NONCOMPLIANCE W OTH MEDICAL TREATMENT AND REGIMEN Status: Chronic (13) Hyperlipidemia Code(s): E78.5 - HYPERLIPIDEMIA, UNSPECIFIED Status: Chronic Qualifiers: Hyperlipidemia type: unspecified Qualified Code(s): E78.5 - Hyperlipidemia , unspecified (14) Hypertension Code(s): I10 - ESSENTIAL (PRIMARY) HYPERTENSION Status: Chronic Qualifiers: Hypertension type: essential hypertension Qualified Code(s): I10 - Essential (primary) hypertension (15) Major depressive disorder Code(s): F32.9 - MAJOR DEPRESSIVE DISORDER, SINGLE EPISODE, UNSPECIFIED Status : Chronic (16) Nicotine dependence Code(s): F17.200 - NICOTINE DEPENDENCE, UNSPECIFIED, UNCOMPLICATED Status: Chronic (17) CHRIS (obstructive sleep apnea) Code(s): G47.33 - OBSTRUCTIVE SLEEP APNEA (ADULT) (PEDIATRIC) Status: Chronic (18) PVD (peripheral vascular disease) with claudication Code(s): I73.9 - PERIPHERAL VASCULAR DISEASE, UNSPECIFIED Status: Chronic (19) Pulmonary hypertension Code(s): I27.2 - OTHER SECONDARY PULMONARY HYPERTENSION * DO NOT USE * Status : Chronic (20) Tobacco abuse Code(s): Z72.0 - TOBACCO USE Status: Chronic - Plan Plan: 53 yo F with acute on chronic hypoxic respiratory failure: Acute on Chronic hypoxic respiratory failure Known hx of copd, tobacco abuse, diastolic dysfunction, pulmonary hypertension. No CO2 retention to suggest COPD exacerbation at this time. Currently intubated and oxygenating appropriately. SIMV: rate 14, TV 430mL, Pressure Support 12, PEEP 5, FiO2 80%, currently satting in the high 80s. -ABG pending for today -Lasix gtt @ 5.5. Pt diuresing well at net -3L since admission -Pulm on board, appreciate recommendations Acute Metabolic Encephalopathy, improving Multifactorial, primary concern multiorgan dysfunction syndrome, acute hypoxic resp failure, hypoglycemia Initial labs showed Lactic acid of 19, pH of 7.1, elevated WBC of 14, UA with WBC's and no organisms and cellulitis of pannus. Brain CT showed no acute process. ABG pending for this AM -Cont mechanical ventilation -Glucose checks WNL since admission, now slightly elevated -Hold metformin -Currently sedated with propofol Hyperglycemia (initially hypoglycemia) Glucose initially undetectable. s/p glucose and an amp of D50. Was on D10W and q1h accuchecks -WNL since admission to ICU, now elevated likely 2/2 steroids -SSI, consider low dose long-acting if persistent Septic Shock, improving Pt with elevated WBC count to 14, lactic acidosis to 19.6, concern for cellulitis of pannus and Enterococcus UTI. s/p fluid resuscitation. Lactic acid has downtrended to 1.1. Procalcitonin 1.6->1.08->0.67 -Blood cultures pending, UCx showed enterococcus faecalis -Vanc (s/p meropenem ) -dobutamine gtt, has been weaned off levophed -Continue solucortef Enterococcus UTI UCX showed 50-75K CFU of enterococcus faecalis that was hdz-sensitive -Now on vanc (s/p meropenem ) Anion Gap Metabolic Acidosis Pt initially with pH 7.12, bicarb 14, pCO2 44, anion gap 35. Lactic acid 19.6. Pt was not able to compensate appropriately for metabolic acidosis, which is likely what triggered respiratory failure. This is likely 2/2 lactic acidosis from septic shock vs severe hypoglycemia -Improving s/p bicarb -Will continue to trend ABG -Continue mechanical ventilation RADHA on CKD Cr at 3x usual baseline. Baseline 1, Cr of 3.86 on admission. Possibly elevated due to septic shock. Improving slowly and pt is making urine. -Dr. Ramirez with Nephro consulted, appreciate recs -Dose abx to kidney function -Trialysis catheter placed on 11/15 in R fem -Continue to monitor Hyperkalemia, resolved Initially 6, has resolved and is now hypokalemic, likely 2/2 lasix gtt -Dr. Ramirez has been consulted, appreciate recs -Dr. Valle was consulted for trialysis catheter placement, which was done in R fem on 11/15. Shock Liver, suspected AST, ALT, and t. bili elevated, now downtrending. On 11/15: AST 422, ALT 160, t. bili 4.6. This could be 2/2 septic shock with end organ failure. Pt s/p cholecystectomy. Abd US showed some perihepatic ascites and hepatosplenomegaly. LFT's improving. -Will continue to trend. -GI consulted, added vitamin K 2/2 elevated INR Lactic Acidosis, resolved LA elevated to 19.6, has downtrended to 1.1. Likely 2/2 hypoglycemia Coagulopathy Pt has been oozing from central line placement in L IJ. INR elevated to 2.4. Pt not on any blood thinners per medication list, only aspirin. Platelets WNL. This could be 2/2 Shock liver, PT/PTT improving -Will continue to monitor -Vitamin K per GI -Will change heparin to BID instead of TID COPD Chronic issue. Currently intubated and oxygenating appropriately. -Will continue home nebs Pulmonary HTN Pt chronically requires oxygen, currently at FiO2 80% on vent -Monitor -Continue ventilation HTN -Hold home HTN meds at this time due to hypotension from sepsis. Code Status: Full VTE ppx: Heparin GI ppx: Protonix Lines/Tubes: L IJ CVC 11/14, R femoral trialysis cath 11/15, bagley 11/14, ET tube , OG tube 11/14 Dipso: continue to monitor in ICU Nutrition: tube feeds Addendum - Attending - Attending Attestation Date/Time: 11/18/18 4517 I personally evaluated the patient and discussed the management with Dr. Kent. I agree with the History, Examination, Assessment and Plan documented above with any addition or exceptions noted below. Acute hypoxic resp failure secondary to end-stage COPD and pulm htn- appreciated pulm recs and vent recommendations RADHA- stable cr and good uop shock liver- improving daily prognosis is poor- will continue aggressive measures but will need discussion with family as to thermite welder goals if unable to wean off of the venilator.
[2018-11-18] MEDS: HumaLOG 300 UNITS/3 ML VIAL SC PRN ×5 (06:24→21:47)
[2018-11-18] MEDS: Potassium Chloride 40 MEQ in Premix Bag 1 BAG IVPB PRN (06:32)
[2018-11-18 06:50] LABS: Actual Bicarbonate (HCO3a) 35.6 mEq/L (22-28); Base Excess (BEa) 12.3 mEq/L (-2.0 to +3.0); CO2 Tension 41.1 mmHg (35.0-45.0); Calcium, Ionized 1.08 mmol/L (1.12-1.30); Carboxyhemoglobin (COHb) 1.8 gm% (0.0-3.0); Hemoglobin (Hb) 8.6 g/dL (12.0-16.0); O2 Tension (PaO2) 66.2 mmHg (80.0-100.0); Potassium - ABG Lab 3.49 mmol/L (3.70-5.30)
[2018-11-18 06:54] LABS: pH, Arterial 7.56 (7.35-7.45)
[2018-11-18 06:55] LABS: ALV-art Gradient 452.825 (0-20); Puncture Site RRA
[2018-11-18] MEDS: Furosemide 100 MG in Sodium Chloride 0.9% 100 ML IVPB SCH (08:43)
[2018-11-18] MEDS: Heparin 5,000 UNITS/ML VIAL SC SCH ×3 (08:43→20:53)
[2018-11-18] MEDS: Pantoprazole 40 MG VIAL IVP SCH (08:44)
--- NOTE | 2018-11-18 08:52 | PRG ---
DATE OF SERVICE: 11/18/2018 TIME SPENT: This is 35 minutes critical care time. SUBJECTIVE: The patient remains intubated on mechanical ventilation. Hypoxemia has continued to be a problem. OBJECTIVE: VITAL SIGNS: Temperature 99.7, pulse 100, blood pressure 120/68, O2 saturation generally running in the high 80s, 24 hour intake 2286, output 1282. HEENT: Unremarkable. NECK: No JVD. LUNGS: Coarse breath sounds bilaterally. CARDIOVASCULAR: S1-S2 regular with a regular ectopy. ABDOMEN: Soft, nontender. EXTREMITIES: No clubbing or cyanosis. She has generalized edema throughout. LABORATORY DATA: White count 4.7, hematocrit 35.2, platelet count 142. PH 7.56, pCO2 of 41, PO2 of 66 on SIMV rate of 12, tidal volume 430, PEEP 5, pressure support 10, FiO2 80%. Sodium 144, potassium 3.4, chloride 92, CO2 of 32, BUN 74, creatinine 1.6, glucose 244. ASSESSMENT: 1. Respiratory failure, requiring mechanical ventilation. 2. End-stage chronic obstructive pulmonary disease. 3. Normal left ventricular function by test done in 2018. PLAN: At this point, it is not clear to me why the patient is on dobutamine given that she has a normal ejection fraction; therefore that medication will be stopped. 1. She has right upper lobe collapse on her chest x-ray today; therefore, I believe that she needs a bronchoscopy for purpose of removing mucus from the right upper lobe. 2. She was switched over to bilevel ventilation today because of refractory hypoxemia. 3. She remains in positive fluid balance for the last 24 hours. 4. Continue IV steroids. Change nebulization treatments to DuoNeb. PROGNOSIS: Poor. Job ID: [id number]
--- NOTE | 2018-11-18 09:14 | RAD ---
PORTABLE CHEST: DATE: 11/18/2018. PROVIDED CLINICAL HISTORY: Respiratory insufficiency. FINDINGS: Comparison is made with the study dated 11/14/2018. Endotracheal tube and enteric catheter are again seen in similar positions. There is interval development of abnormal opacity involving the right upp er lung zone likely reflecting lobar atelectasis. Cardiac and mediastinal silhouette is unchanged as visualized. Emphysematous changes are again seen. Blunting of the left costophrenic angle suggests let basilar pleural fluid. IMPRESSION: Development of abnormal right hemithoracic opacity likely reflect lobar atelectasis. This may be on the basis of mucus plugging. CODE T POS: JORY
[2018-11-18] MEDS: Phytonadione 10 MG/ML AMP SC SCH (09:20)
--- NOTE | 2018-11-18 09:40 | OP ---
DATE OF PROCEDURE: 11/18/2018 PROCEDURE: Bronchoscopy. INDICATION: The patient has right upper lobe collapse on x-ray. PREOPERATIVE DIAGNOSIS: Mucous plugging. POSTOPERATIVE DIAGNOSIS: Right upper lobe mucus plugging. ANESTHESIA: The patient was on propofol through mechanical ventilation during the procedure. DESCRIPTION OF PROCEDURE: The procedure was done in the CCU. Informed consent was obtained from the patient's family. A time-out was taken prior to the procedure. A 2.2 Olympus bronchoscope was placed th+rough the patient's endotracheal tube while she was on pressure control ventilation 100% FiO2. The patient's endotracheal tube had significant mucus throughout, which was removed. The right mainstem bronchus showed obvious suction trauma. The right upper lobe had significant mucoid impaction, which was clear with normal saline. The right middle lobe and right lower lobe appeared clear. The left mainstem bronchus, left upper lobe and left lower lobe appeared clear. The patient tolerated procedure well. SPECIMEN: Was sent for culture. Job ID: [id number]
--- NOTE | 2018-11-18 14:50 | PRG ---
DATE OF SERVICE: 11/18/2018 SUBJECTIVE: The patient was seen and examined in ICU, intubated. OBJECTIVE: GENERAL: This is a well-built female, seen in ICU, intubated. VITAL SIGNS: Temperature 98.2. Heart rate 96. Respiratory rate 12. Blood pressure 116/60. HEENT: Intubated. CV: S1-S2 heard. RESPIRATORY: Clear. GASTROINTESTINAL: Abdomen is soft. MUSCULOSKELETAL: 1+ edema. DERMATOLOGIC: No skin rash. NEUROLOGIC: Currently intubated. LABORATORY DATA: Potassium 3.4, BUN is 74, creatinine is 1.6. ASSESSMENT AND PLAN: 1. Acute kidney injury, getting better. Creatinine is down to 1.6 from 3.8 on admission. We will continue to monitor. Avoid nephrotoxins. 2. Hypokalemia, most likely from diuretics. 3. Metabolic alkalosis, most likely from diuretic. 4. Acute hypoxic respiratory failure, intubated. 5. Renal function is better. 6. Closely monitor electrolytes and renal function. We will follow. Job ID: [id number]
--- NOTE | 2018-11-18 18:17 | PRG ---
DATE OF SERVICE: 11/18/2018 SUBJECTIVE: Ms. Valdovinos is sedated on the ventilator. OBJECTIVE: VITAL SIGNS: Blood pressure 127/70, pulse 97, and temperature 98.6. GENERAL: She is sedated, in no acute distress. LUNGS: Clear to auscultation bilaterally. HEART: Regular rate and rhythm. ABDOMEN: Soft, nondistended. She has hepatomegaly palpable well below the right costal margin. EXTREMITIES: She has 1+ edema of the upper extremities. LABORATORY DATA: White blood cell count 4.7, hemoglobin 10.3, platelets 142. INR was 1.5 two days ago. Creatinine 1.66, BUN 74, bilirubin 2.7, AST 72, ALT 114, alkaline phosphatase 80. IMPRESSION: 1. Congestive hepatopathy with a component of ischemic hepatopathy. Her liver tests are trending down. 2. Protein-calorie malnutrition. She is receiving feeds through the OG tube. RECOMMENDATIONS: We will continue to follow the trend of her liver tests. Job ID: [id number]
[2018-11-19] MEDS: methylPREDNISolone Sod Succ 40 MG VIAL IVP SCH ×4 (00:26→18:41)
[2018-11-19] MEDS: Vancomycin HCl 1 GM in Premix Bag 1 BAG IVPB SCH (00:26)
[2018-11-19] MEDS: Propofol 1,000 MG/100 ML VIAL IV PRN ×5 (00:29→18:41)
[2018-11-19] MEDS: HumaLOG 300 UNITS/3 ML VIAL SC PRN ×3 (00:30→12:30)
[2018-11-19 05:29] LABS: #Lymphocytes 0.8 thou/uL (1.20-3.40); #Monocytes 0.5 thou/uL (0.11-0.59); #Neutrophils 3.9 thou/uL (1.40-6.50); %Basophils 0.3 % (0.0-1.0); %Eosinophils 0.1 % (0.0-10.0); %Lymphocytes 15.7 % (21.0-51.0); %Monocytes 9.6 % (0.0-10.0); %Neutrophils 74.3 % (42.0-75.0); Hemoglobin 10.2 g/dL (12.0-16.0); MDiff Complete? YES; Mean Corpuscular HGB CONC 28.6 g/dL (32.0-36.0); Mean Corpuscular Hemoglobin 21.7 pg (27.0-31.0); Mean Corpuscular Volume 75.8 fL (78.0-98.0); Mean Platelet Volume 6.2 fL (7.4-10.4); Platelet Count 115 thou/uL (130-400); RBC Distribution Width 21.2 % (11.5-14.5); Red Blood Cell (RBC) Count 4.71 mill/uL (4.20-5.40); White Blood Cell (WBC) Count 5.2 thou/uL (4.8-10.8)
[2018-11-19] MEDS: Furosemide 100 MG in Sodium Chloride 0.9% 100 ML IVPB SCH (05:29)
[2018-11-19 05:30] LABS: Elliptocytes SLIGHT = 2-5 cells (100X) (0-1/hpf); Hypochromia MODERATE=16-30 cells (100X) (0-5/hpf); Microcytosis SLIGHT = 6-15 cells (100X) (0-5/hpf); Platelet Morphology Comment Appears Decreased; Target Cells SLIGHT = 2-5 cells (100X) (0-1/hpf)
[2018-11-19 05:31] LABS: Phosphorus 3.9 mg/dL (2.3-4.7)
[2018-11-19 05:34] LABS: ALT (SGPT) 86 U/L (8-55); AST (SGOT) 35 U/L (5-34); Albumin 3.7 g/dL (3.5-5.0); Alkaline Phosphatase 78 U/L (40-150); BUN (Urea Nitrogen) 81 mg/dL (9.8-20.1); Bilirubin, Total 2.6 mg/dL (0.2-1.2); Calc. Creatinine Clearance 55 mL/min (70-130); Calcium 9.9 mg/dL (7.8-10.44); Estimated GFR-MDRD 35; Globulin 2.6 g/dL (2.4-3.5); Glucose 235 mg/dL (70-105); Magnesium 1.9 mg/dL (1.6-2.6); Protein, Total 6.3 g/dL (6.0-8.3)
[2018-11-19 05:43] LABS: Anion Gap 18 mmol/L (10-20); Carbon Dioxide 39 mmol/L (22-29); Chloride 92 mmol/L (98-107); Sodium 146 mmol/L (136-145)
[2018-11-19 05:45] LABS: Potassium 2.5 mmol/L (3.5-5.1)
[2018-11-19] MEDS: Potassium Chloride 40 MEQ in Premix Bag 1 BAG IVPB PRN ×3 (05:47→13:22)
--- NOTE | 2018-11-19 06:07 | PDOC.FM ---
- Subjective Subjective: No acute events overnight. Sedated at this time but moving all limbs spontaneously. - Objective MAR Reviewed: Yes Vital Signs & Weight: Vital Signs (12 hours) Temp Pulse Resp BP Pulse Ox 11/19/18 04:00 98.5 F 12 11/19/18 02:15 93 11/19/18 02:13 88 12 94 L 11/19/18 02:00 12 11/19/18 00:00 98.2 F 12 11/18/18 22:00 12 11/18/18 21:49 86 127/66 11/18/18 20:00 12 88 L 11/18/18 19:00 98.5 F 11/18/18 18:32 107 H 11/18/18 18:31 112 H 12 100 Weight Admit Weight 84.277 kg Weight 84.277 kg Most Recent Monitor Data Heart Rate from ECG 89 NIBP 108/49 NIBP BP-Mean 68 Respiration from ECG 14 SpO2 93 I&O: 11/17/18 11/18/18 11/19/18 06:59 06:59 06:59 Intake Total 2211.2 2286.4 2229 Output Total 3395 1282 3420 Balance -1183.8 1004.4 -1191 Result Diagrams: 11/19/18 10:06 11/19/18 04:59 Phys Exam - Physical Examination Constitutional: NAD HEENT: PERRLA, moist MMs, sclera anicteric Neck: supple wheezing and rhonchi in RUL Cardiovascular: RRR, no significant murmur Gastrointestinal: soft, no distention, positive bowel sounds Musculoskeletal: no edema, pulses present Neurological: moves all 4 limbs sedated Deviation from normal: bruising on abdomen at site of heparin injections Dx/Plan (1) Acute and chronic respiratory failure with hypoxia Code(s): J96.21 - ACUTE AND CHRONIC RESPIRATORY FAILURE WITH HYPOXIA Status: Acute (2) Acute encephalopathy Code(s): G93.40 - ENCEPHALOPATHY, UNSPECIFIED Status: Acute (3) Coagulopathy Status: Acute (4) Elevated LFTs Code(s): R94.5 - ABNORMAL RESULTS OF LIVER FUNCTION STUDIES Status: Acute (5) Hypomagnesemia Code(s): E83.42 - HYPOMAGNESEMIA Status: Acute (6) Severe sepsis Code(s): A41.9 - SEPSIS, UNSPECIFIED ORGANISM; R65.20 - SEVERE SEPSIS WITHOUT SEPTIC SHOCK Status: Acute (7) UTI (urinary tract infection) due to Enterococcus Code(s): N39.0 - URINARY TRACT INFECTION, SITE NOT SPECIFIED; B95.2 - ENTEROCOCCUS THE CAUSE OF DISEASES CLASSIFIED ELSEWHERE Status: Acute (8) RADHA (acute kidney injury) Code(s): N17.9 - ACUTE KIDNEY FAILURE, UNSPECIFIED Status: Acute (9) COPD with acute exacerbation Code(s): J44.1 - CHRONIC OBSTRUCTIVE PULMONARY DISEASE W (ACUTE) EXACERBATION Status: Acute (10) Diabetes mellitus, type II Status: Chronic Qualifiers: Diabetes mellitus clothing sales assistant insulin use: without clothing sales assistant use Chronic kidney disease stage: stage 3 (moderate) (11) History of atrial flutter Code(s): Z86.79 - PERSONAL HISTORY OF OTHER DISEASES OF THE CIRCULATORY SYSTEM Status: Chronic (12) Hx of past noncompliance Code(s): Z91.19 - PATIENT'S NONCOMPLIANCE W OTH MEDICAL TREATMENT AND REGIMEN Status: Chronic (13) Hyperlipidemia Code(s): E78.5 - HYPERLIPIDEMIA, UNSPECIFIED Status: Chronic Qualifiers: Hyperlipidemia type: unspecified Qualified Code(s): E78.5 - Hyperlipidemia , unspecified (14) Hypertension Code(s): I10 - ESSENTIAL (PRIMARY) HYPERTENSION Status: Chronic Qualifiers: Hypertension type: essential hypertension Qualified Code(s): I10 - Essential (primary) hypertension (15) Major depressive disorder Code(s): F32.9 - MAJOR DEPRESSIVE DISORDER, SINGLE EPISODE, UNSPECIFIED Status : Chronic (16) Nicotine dependence Code(s): F17.200 - NICOTINE DEPENDENCE, UNSPECIFIED, UNCOMPLICATED Status: Chronic (17) CHRIS (obstructive sleep apnea) Code(s): G47.33 - OBSTRUCTIVE SLEEP APNEA (ADULT) (PEDIATRIC) Status: Chronic (18) PVD (peripheral vascular disease) with claudication Code(s): I73.9 - PERIPHERAL VASCULAR DISEASE, UNSPECIFIED Status: Chronic (19) Pulmonary hypertension Code(s): I27.2 - OTHER SECONDARY PULMONARY HYPERTENSION * DO NOT USE * Status : Chronic (20) Tobacco abuse Code(s): Z72.0 - TOBACCO USE Status: Chronic - Plan Plan: 53 yo F with acute on chronic hypoxic respiratory failure: Acute on Chronic hypoxic respiratory failure Known hx of copd, tobacco abuse, diastolic dysfunction, pulmonary hypertension. No CO2 retention to suggest COPD exacerbation at this time. Currently intubated and oxygenating appropriately. -s/p bronchoscopy yesterday that removed large mucus plug -ABG pending for today -Lasix gtt @ 5.5. Pt diuresing well at net -3L since admission -Pulm on board, appreciate recommendations Acute Metabolic Encephalopathy, improving Multifactorial, primary concern multiorgan dysfunction syndrome, acute hypoxic resp failure, hypoglycemia Initial labs showed Lactic acid of 19, pH of 7.1, elevated WBC of 14, UA with WBC's and no organisms and cellulitis of pannus. Brain CT showed no acute process. ABG pending for this AM -Cont mechanical ventilation -Glucose checks WNL since admission, now slightly elevated -Hold metformin -Currently sedated with propofol Hyperglycemia (initially hypoglycemia) Glucose initially undetectable. s/p glucose and an amp of D50. Was on D10W and q1h accuchecks -WNL since admission to ICU, now elevated likely 2/2 steroids -SSI, consider low dose long-acting if persistent Septic Shock, improving Pt with elevated WBC count to 14, lactic acidosis to 19.6, concern for cellulitis of pannus and Enterococcus UTI. s/p fluid resuscitation. Lactic acid has downtrended to 1.1. Procalcitonin 1.6->1.08->0.67 -Blood cultures pending, UCx showed enterococcus faecalis -Vanc (s/p meropenem ) -has been weaned off levophed and dobutamine gtt -Continue solucortef per pulm Enterococcus UTI UCX showed 50-75K CFU of enterococcus faecalis that was hdz-sensitive -Now on vanc (s/p meropenem ) Anion Gap Metabolic Acidosis Pt initially with pH 7.12, bicarb 14, pCO2 44, anion gap 35. Lactic acid 19.6. Pt was not able to compensate appropriately for metabolic acidosis, which is likely what triggered respiratory failure. This is likely 2/2 lactic acidosis from septic shock vs severe hypoglycemia -Improving s/p bicarb -Will continue to trend ABG -Continue mechanical ventilation RADHA on CKD Cr at 3x usual baseline. Baseline 1, Cr of 3.86 on admission. Possibly elevated due to septic shock. Improving slowly and pt is making urine. -Dr. Ramirez with Nephro consulted, appreciate recs -Dose abx to kidney function -Trialysis catheter placed on 11/15 in R fem -Continue to monitor Hyperkalemia, resolved Initially 6, has resolved and is now hypokalemic, likely 2/2 lasix gtt -Dr. Ramirez has been consulted, appreciate recs -Dr. Valle was consulted for trialysis catheter placement, which was done in R fem on 11/15. Shock Liver, suspected AST, ALT, and t. bili elevated, now downtrending. On 11/15: AST 422, ALT 160, t. bili 4.6. This could be 2/2 septic shock with end organ failure. Pt s/p cholecystectomy. Abd US showed some perihepatic ascites and hepatosplenomegaly. LFT's improving. -Will continue to trend. -GI consulted, added vitamin K 2/2 elevated INR Lactic Acidosis, resolved LA elevated to 19.6, has downtrended to 1.1. Likely 2/2 hypoglycemia Coagulopathy Pt has been oozing from central line placement in L IJ. INR elevated to 2.4. Pt not on any blood thinners per medication list, only aspirin. Platelets WNL. This could be 2/2 Shock liver, PT/PTT improving -Will continue to monitor -Vitamin K per GI -Platelets dropped today - will recheck with potassium later this morning, consider d/c heparin 2/2 theoretical concern for HIT COPD Chronic issue. Currently intubated and oxygenating appropriately. -Will continue home nebs Pulmonary HTN Pt chronically requires oxygen, FiO2 weaned dramatically Tuesday to 35%, back up to 45% this morning -Monitor -Continue ventilation HTN -Hold home HTN meds at this time due to hypotension from sepsis. Code Status: Full VTE ppx: Heparin GI ppx: Protonix Lines/Tubes: L IJ CVC 11/14, R femoral trialysis cath 11/15, bagley 11/14, ET tube , OG tube 11/14 Dipso: continue to monitor in ICU Nutrition: tube feeds Addendum - Attending - Attending Attestation Date/Time: 11/19/18 1116 I personally evaluated the patient and discussed the management with Dr. Kent. I agree with the History, Examination, Assessment and Plan documented above with any addition or exceptions noted below. Off dobutamine and lasix drip. Replace K this am. Will start low dose NPH to get sugars <180-200. Appreciate nicole al for vent management and weaning.
[2018-11-19 07:20] LABS: Actual Bicarbonate (HCO3a) 35.8 mEq/L (22-28); Base Excess (BEa) 12.4 mEq/L (-2.0 to +3.0); CO2 Tension 41.6 mmHg (35.0-45.0); Calcium, Ionized 1.16 mmol/L (1.12-1.30); Carboxyhemoglobin (COHb) 2.2 gm% (0.0-3.0); Hemoglobin (Hb) 8.8 g/dL (12.0-16.0); O2 Tension (PaO2) 74.6 mmHg (80.0-100.0); Potassium - ABG Lab 2.91 mmol/L (3.70-5.30)
[2018-11-19 07:21] LABS: Puncture Site LRA; pH, Arterial 7.55 (7.35-7.45)
--- NOTE | 2018-11-19 08:28 | PRG ---
DATE OF SERVICE: 11/19/2018 TIME SPENT: 35 minutes critical time. SUBJECTIVE: The patient remains intubated on mechanical ventilation. Her oxygenation has improved after the bronchoscopy yesterday. OBJECTIVE: VITAL SIGNS: Her temperature is 97.7, pulse 89, blood pressure 108/49. 24-hour intake 2229, output 3420. HEENT: Unremarkable. NECK: No JVD. LUNGS: Coarse breath sounds. CARDIAC: S1, S2. Regular. ABDOMEN: Soft, nontender. EXTREMITIES: No clubbing, cyanosis, or edema. IMAGING STUDIES: Chest x-ray shows significant improvement in the right upper lobe. LABORATORY DATA: Sodium 146, potassium 2.5, chloride 92, CO2 of 39, BUN 81, creatinine 1.5, glucose 235. White blood cell count 5.2, hematocrit 35.7, and platelet count 115. ABG, pH of 7.55, pCO2 of 41, pO2 of 74 on bilevel rate 12, high pressure 22, low blood pressure 11, FiO2 45%. ASSESSMENT: 1. Acute respiratory failure requiring mechanical ventilation. 2. End-stage chronic obstructive pulmonary disease. 3. Right upper lobe atelectasis-status post bronchoscopy for removal of mucus plugging yesterday. 4. Contraction alkalosis. PLAN: 1. I will stop the Lasix drip and actually give her back some half-normal saline. 2. Continue mechanical ventilation, but decrease the amount of volume given that she is alkalotic. 3. Continue the antibiotics; however, she needs a broader spectrum to adjust vancomycin given her risk for gram negatives. The vancomycin that she is currently on will not cover gram negatives. 4. Prognosis remains guarded. Job ID: [id number]
[2018-11-19] MEDS: Pantoprazole 40 MG VIAL IVP SCH (09:00)
[2018-11-19] MEDS: Heparin 5,000 UNITS/ML VIAL SC SCH ×2 (09:19→20:08)
[2018-11-19] MEDS: Sodium Chloride 0.45% 1,000 ML IV SCH (09:23)
[2018-11-19] MEDS: Levofloxacin 750 mg/D5W 500 MG in Premix Bag 1 BAG IVPB SCH (10:00)
[2018-11-19 10:40] LABS: Hemoglobin 10.2 g/dL (12.0-16.0); Mean Corpuscular Hemoglobin 21.8 pg (27.0-31.0); Red Blood Cell (RBC) Count 4.67 mill/uL (4.20-5.40)
[2018-11-19 10:51] LABS: #Lymphocytes 0.6 thou/uL (1.20-3.40); #Monocytes 0.3 thou/uL (0.11-0.59); %Eosinophils 0.3 % (0.0-10.0); %Lymphocytes 12.5 % (21.0-51.0); %Monocytes 6.9 % (0.0-10.0); %Neutrophils 80.3 % (42.0-75.0); Anisocytosis SLIGHT = 6-15 cells (100X) (0-5/hpf); Elliptocytes SLIGHT = 2-5 cells (100X) (0-1/hpf); Hypochromia MODERATE=16-30 cells (100X) (0-5/hpf); MDiff Complete? YES; Mean Corpuscular HGB CONC 28.4 g/dL (32.0-36.0); Microcytosis MODERATE=15-30 cells (100X) (0-5/hpf); Platelet Count 117 thou/uL (130-400); Platelet Morphology Comment Appears Decreased; Polychromasia SLIGHT = 2-3 cells (100X) (0-2/hpf); RBC Distribution Width 20.8 % (11.5-14.5); Target Cells SLIGHT = 2-5 cells (100X) (0-1/hpf)
[2018-11-19 11:29] LABS: Potassium 2.9 mmol/L (3.5-5.1)
--- NOTE | 2018-11-19 12:58 | RAD ---
PORTABLE CHEST: DATE: 11/19/2018. PROVIDED CLINICAL HISTORY: Respiratory insufficiency. FINDINGS: Interval improvement in aeration at the heart upper lung zone. Additional significant interval hernandez e with respect to the prior examination is not apparent. IMPRESSION: As above. POS: [facility]
--- NOTE | 2018-11-19 15:12 | PRG ---
DATE OF SERVICE: 11/19/2018 SUBJECTIVE: Ms. Valdovinos is sedated on the ventilator. OBJECTIVE: VITAL SIGNS: Temperature is 98.5, pulse 90, and blood pressure 121/56. GENERAL: She is in no distress. She is sedated with endotracheal tube in place. She has Dobbhoff tube in place, tolerating tube feeds at the current rate of 30. ABDOMEN: Soft and nontender. She does have an enlarged liver well below the costal margin. EXTREMITIES: Trace lower extremity edema. IMPRESSION: 1. Congestive hepatopathy/ischemic hepatopathy. Her liver tests continue to improve. 2. Protein-calorie malnutrition. RECOMMENDATIONS: 1. Continue feeds as tolerated. Adjust rates per the dietitian recommendations. 2. I will sign off. Please call if GI can be of assistance. Job ID: [id number]
[2018-11-19 19:34] LABS: Potassium 3.7 mmol/L (3.5-5.1)
--- NOTE | 2018-11-19 20:16 | PRG ---
DATE OF SERVICE: 11/19/2018 SUBJECTIVE: The patient was seen and examined at bedside and overnight events noted. The patient denies any shortness of breath or chest pain or palpitation. No history of nausea or vomiting or diarrhea or fever or chills or cramps. OBJECTIVE: GENERAL: This is a well-built female, in in no apparent distress. VITAL SIGNS: Temperature 98, pulse 82, respiratory rate 12, blood pressure 129/62. HEENT: Atraumatic, normocephalic. Oral mucosa is moist NECK: Supple. CARDIOVASCULAR: S1, S2 heard. Rate and rhythm regular. RESPIRATORY: Clear to auscultation. GASTROINTESTINAL: Abdomen is soft. MUSCULOSKELETAL: No tenderness. No edema. DERMATOLOGIC: No skin rash. NEUROLOGIC: Alert and awake and oriented X3. No focal neurologic deficits. Moving all the extremities. PSYCHIATRIC: Mood and affect normal. LABORATORY DATA: Potassium is 2.9, sodium is 146, bicarb is 39, BUN is 81, creatinine is 1.5. ASSESSMENT AND PLAN: 1. Acute kidney injury, elevated BUN and alkalosis suggest hypovolemic. Agree with IV fluids as tolerated and holding back on the Lasix. 2. Hypokalemia secondary to diuretics.. 3. Metabolic acidosis. 4. Contraction alkalosis. 5. Acute hypoxic respiratory failure. 6. Agree with gentle hydration as tolerated. Avoid nephrotoxins. Monitor renal function. Replace electrolytes aggressively. We will follow. Job ID: [id number]
[2018-11-19] MEDS: NPH, Human Insulin Isophane 300 UNIT/3 ML VIAL SC SCH (20:32)
[2018-11-20] MEDS: HumaLOG 300 UNITS/3 ML VIAL SC PRN ×5 (00:01→20:43)
[2018-11-20] MEDS: Vancomycin HCl 1 GM in Premix Bag 1 BAG IVPB SCH (00:01)
[2018-11-20] MEDS: Propofol 1,000 MG/100 ML VIAL IV PRN ×5 (00:07→20:44)
[2018-11-20] MEDS: Sodium Chloride 0.45% 1,000 ML IV SCH (04:41)
[2018-11-20] MEDS: methylPREDNISolone Sod Succ 40 MG VIAL IVP SCH ×4 (05:25→17:45)
[2018-11-20 05:50] LABS: #Lymphocytes 0.8 thou/uL (1.20-3.40); #Monocytes 0.3 thou/uL (0.11-0.59); %Basophils 0.3 % (0.0-1.0); %Eosinophils 0.1 % (0.0-10.0); %Lymphocytes 12.4 % (21.0-51.0); %Monocytes 4.7 % (0.0-10.0); %Neutrophils 82.5 % (42.0-75.0); Hemoglobin 9.9 g/dL (12.0-16.0); Mean Corpuscular HGB CONC 27.9 g/dL (32.0-36.0); Mean Corpuscular Hemoglobin 21.7 pg (27.0-31.0); Mean Corpuscular Volume 77.7 fL (78.0-98.0); Mean Platelet Volume 6.4 fL (7.4-10.4); Platelet Count 126 thou/uL (130-400); RBC Distribution Width 21.5 % (11.5-14.5); Red Blood Cell (RBC) Count 4.54 mill/uL (4.20-5.40); White Blood Cell (WBC) Count 6.1 thou/uL (4.8-10.8)
[2018-11-20 05:57] LABS: ALT (SGPT) 63 U/L (8-55); AST (SGOT) 21 U/L (5-34); Albumin 3.5 g/dL (3.5-5.0); Alkaline Phosphatase 63 U/L (40-150); BUN (Urea Nitrogen) 80 mg/dL (9.8-20.1); Bilirubin, Total 2.6 mg/dL (0.2-1.2); Calc. Creatinine Clearance 60 mL/min (70-130); Calcium 9.7 mg/dL (7.8-10.44); Estimated GFR-MDRD 39; Globulin 2.4 g/dL (2.4-3.5); Glucose 190 mg/dL (70-105); Magnesium 2.1 mg/dL (1.6-2.6); Protein, Total 5.9 g/dL (6.0-8.3)
[2018-11-20 05:58] LABS: Phosphorus 4.8 mg/dL (2.3-4.7)
[2018-11-20 06:06] LABS: Anion Gap 17 mmol/L (10-20); Carbon Dioxide 37 mmol/L (22-29); Chloride 95 mmol/L (98-107); Potassium 3.7 mmol/L (3.5-5.1); Sodium 145 mmol/L (136-145)
--- NOTE | 2018-11-20 07:01 | PDOC.EVN ---
Addendum - Attending - Attending Attestation Date/Time: 11/20/18 0623 I personally evaluated the patient and discussed the management with Dr. Trejo. I agree with the History, Examination, Assessment and Plan documented in his progress note with any addition or exceptions noted below. Patient overall stable this morning. Continues to require vent support for respiratory status, her sats have decreased somewhat this morning. ABG pending. Continue mgmt per Pulm. Her BP is stable without pressor support and will continue mild fluid as she has diuresed well and currently has no signs of hypervolemia. UOP stable and appropriate. She did have some issues with tube feeds overnight and possible large residuals resulting in some emesis but now resolved. Consider changing to larger bore OG tube if this continues to be an issue. Glycemic control adequate at this time. Since she is making adequate urine, suspect continuing to hold HD unless severe derangements recur. Creatinine continues to downtrend. Awaiting further recs from Pulm/ Cardiology but overall has made significant progress since her admission. Prognosis remains guarded as she may be headed for trach/PEG in near future as I anticipate she will a difficult vent wean.
--- NOTE | 2018-11-20 07:14 | PDOC.FM ---
- Subjective Subjective: No acute events overnight. Pt continues on vent support, but improved from prior as FiO2 has been weaned to 40% and maintaining sats. Pt remains on bilevel. Sedated. - Objective MAR Reviewed: Yes Vital Signs & Weight: Vital Signs (12 hours) Temp Pulse Resp BP Pulse Ox 11/20/18 07:06 81 95/54 L 11/20/18 07:04 81 23 H 86 L 11/20/18 06:00 15 11/20/18 04:00 98.5 F 16 11/20/18 02:25 77 11/20/18 02:24 79 20 95 11/20/18 02:00 16 11/20/18 00:00 98.5 F 18 11/19/18 22:00 17 11/19/18 21:44 85 19 93 L 11/19/18 21:42 81 11/19/18 20:00 98.3 F 15 90 L Weight Admit Weight 84.277 kg Weight 84.277 kg Most Recent Monitor Data Heart Rate from ECG 78 NIBP 91/54 NIBP BP-Mean 66 Respiration from ECG 25 SpO2 86 I&O: 11/19/18 11/20/18 11/21/18 06:59 06:59 06:59 Intake Total 2229 2705 Output Total 3420 1660 Balance -1191 1045 Result Diagrams: 11/20/18 05:15 11/20/18 05:15 Radiology Reviewed by me: Yes Phys Exam - Physical Examination Constitutional: NAD Sedated HEENT: moist MMs ET tube in place Neck: no JVD scattered rhonchi w/o wheezes or rales Cardiovascular: RRR, no significant murmur, no rub Gastrointestinal: soft, non-tender, no distention, positive bowel sounds Musculoskeletal: no edema, pulses present Neurological: moves all 4 limbs sedated Skin: normal turgor Dx/Plan (1) Acute and chronic respiratory failure with hypoxia Code(s): J96.21 - ACUTE AND CHRONIC RESPIRATORY FAILURE WITH HYPOXIA Status: Acute (2) Elevated LFTs Code(s): R94.5 - ABNORMAL RESULTS OF LIVER FUNCTION STUDIES Status: Acute (3) UTI (urinary tract infection) due to Enterococcus Code(s): N39.0 - URINARY TRACT INFECTION, SITE NOT SPECIFIED; B95.2 - ENTEROCOCCUS THE CAUSE OF DISEASES CLASSIFIED ELSEWHERE Status: Acute (4) Hypoglycemia Code(s): E16.2 - HYPOGLYCEMIA, UNSPECIFIED Status: Resolved (5) RADHA (acute kidney injury) Code(s): N17.9 - ACUTE KIDNEY FAILURE, UNSPECIFIED Status: Acute (6) Lactic acidosis Code(s): E87.2 - ACIDOSIS Status: Resolved (7) High anion gap metabolic acidosis Code(s): E87.2 - ACIDOSIS Status: Acute (8) COPD (chronic obstructive pulmonary disease) Status: Chronic Qualifiers: (9) Pulmonary hypertension Code(s): I27.2 - OTHER SECONDARY PULMONARY HYPERTENSION * DO NOT USE * Status : Chronic - Plan Plan: Acute on Chronic hypoxic respiratory failure pt remains on vent support bilevel FiO2 weaned to 40% and maintaining sats - bronchoscopy yesterday removed large mucus plug - overall, improved from yesterday, cont vent support and possibly wean sedation today - given extensive lung disease, expect difficult wean Acute Metabolic Encephalopathy, improving Multifactorial ABG pending for this AM -Cont mechanical ventilation - consider weaning sedation today Hyperglycemia (initially hypoglycemia) cont tube feeds and NPH, monitor BS Septic Shock, improving -Blood cultures pending, UCx showed enterococcus faecalis -Vanc (s/p meropenem ) - levoquin added to regimen, cont vanc levoquin Enterococcus UTI hdz sensitive - cont vanc and levoquin Anion Gap Metabolic Acidosis AG 17 today cont gentle IVF hydration blood gas pending RADHA on CKD Cr at 3x usual baseline. Baseline 1, Cr of 3.86 on admission. \ Cr continues to improve lasix drip DCd as possibly component of hypovolemia contributing to RADHA UOP adequate, monitor Cont gentle IVF hydration hold lasix Transaminitis AST, ALT, and t. bili elevated, now downtrending. - GI suspects congestive hepatopathy, LFTs continue to downtrend, monitor Lactic Acidosis, resolved LA elevated to 19.6, has downtrended to 1.1. Likely 2/2 hypoglycemia Coagulopathy s/p vit K, no evidence of continued bleeding monitor platelets>120k COPD Chronic issue. Currently intubated a - FIO2 weaned to 40% and maintaining saturations, will be difficult wean Pulmonary HTN Pt chronically requires oxygen, FiO2 weaned dramatically Tuesday to 35%, back up to 40% this morning -briefly required FiO2 @ 80%, mucus plug removed and maintaining sats at 40% fiO2 HTN -Hold home HTN meds at this time due to hypotension from sepsis. - off pressors Code Status: Full VTE ppx: Heparin GI ppx: Protonix Lines/Tubes: L IJ CVC 11/14, R femoral trialysis cath 11/15, bagley 11/14, ET tube , OG tube 11/14 Dipso: continue to monitor in ICU, prognosis remains guarded Nutrition: tube feeds
[2018-11-20 07:25] LABS: Base Excess (BEa) 13.1 mEq/L (-2.0 to +3.0); CO2 Tension 50.3 mmHg (35.0-45.0); Calcium, Ionized 1.17 mmol/L (1.12-1.30); Carboxyhemoglobin (COHb) 2.3 gm% (0.0-3.0); Hemoglobin (Hb) 10.8 g/dL (12.0-16.0); Potassium - ABG Lab 3.71 mmol/L (3.70-5.30)
[2018-11-20 07:26] LABS: O2 Tension (PaO2) 51.9 mmHg (80.0-100.0)
[2018-11-20 07:27] LABS: ALV-art Gradient 170.425 (0-20); Puncture Site RRA
[2018-11-20] MEDS: Levofloxacin 750 mg/D5W 500 MG in Premix Bag 1 BAG IVPB SCH (08:50)
[2018-11-20] MEDS: Pantoprazole 40 MG VIAL IVP SCH (08:51)
[2018-11-20] MEDS: Heparin 5,000 UNITS/ML VIAL SC SCH ×2 (09:00→20:38)
[2018-11-20] MEDS: NPH, Human Insulin Isophane 300 UNIT/3 ML VIAL SC SCH ×2 (09:02→20:39)
--- NOTE | 2018-11-20 09:17 | RAD ---
SINGLE VIEW CHEST: HISTORY: Pneumonia. COMPARISON: 11/19/2018 FINDINGS: A single view of the chest shows an enlarged but stable cardiomediastinal silhouette. The lines and tubes are unchanged in position. Increased interstitial markings are present. There is no evidence of consolidation, mass, or pleural effusion. IMPRESSION: No evidence of acute cardiopulmonary disease. POS: [facility]
[2018-11-20] MEDS: Metoclopramide HCl 10 MG/2 ML VIAL IVP SCH ×2 (13:23→21:01)
--- NOTE | 2018-11-20 13:25 | PRG ---
DATE OF SERVICE: 11/20/2018 SUBJECTIVE: This is a 53-year-old female, being seen for acute kidney injury. The patient denies any nausea, vomiting, or chest pain. OBJECTIVE: CONSTITUTIONAL: The patient is awake and alert. VITAL SIGNS: Pulse 81, breathing 16, blood pressure 126/87. GENERAL APPEARANCE AND MENTAL STATUS: Fair. HEAD/NECK: Normocephalic. Atraumatic. EYES: EOMI. No deformity. EARS: Clear. No ulcers. NOSE: Intact. No lesions. MOUTH: Clear. No discharge. THROAT: Clear. No exudate. LUNGS: Clear. No crackles. CARDIAC: S1, S2. No rub. ABDOMEN: Benign. Bowel sounds positive. GENITALIA/RECTUM: Moore absent. BACK/EXTREMITIES: Edema 0+. NEUROLOGICAL: Alert and motor intact. SKIN: LYMPHATICS: LABORATORY DATA: Reviewed. Hemoglobin 9.9. Creatinine 1.4. ASSESSMENT: 1. Acute kidney injury, stable. 2. Hypertension, stable. 3. Anemia, stable. I will sign off on this patient. Please reconsult as needed. Job ID: [id number]
[2018-11-20] MEDS: Linezolid 600 MG in Premix Bag 1 BAG IVPB SCH (16:11)
--- NOTE | 2018-11-20 16:35 | PRG ---
DATE OF SERVICE: 11/20/2018 SUBJECTIVE: Chyna Valdovinos is mechanically ventilated. She will awaken, follow commands. OBJECTIVE: VITAL SIGNS: Heart rate in 70s, blood pressure 120/61, respiratory rate 20s. LUNGS: Remarkable for rhonchi bilaterally. HEART: Regular rhythm. ABDOMEN: Soft. EXTREMITIES: Without asymmetry. LABORATORY DATA: White count 6.1, hemoglobin 9.9, and platelets 126. Sodium 145, potassium 3.7, chloride 95, bicarb 37, BUN 80, creatinine 1.42. Intake and output positive at 1045. IMPRESSION: 1. Respiratory failure, acute on chronic. 2. Chronic respiratory failure with hypoxemia on chronic O2 at home. 3. Advanced chronic obstructive pulmonary disease, near end stage. 4. Steroid dependence. 5. Surgically proven respiratory bronchiolitis. 6. Ongoing tobacco use, in spite of numerous discussions about short length of life if she did not quit smoking several years back. 7. Acute on chronic kidney disease. 8. Status post bronchoscopy for mucous plugging. 9. Contraction alkalosis and elevated BUN, likely secondary to the diuretics. She had positive fluid balance in last 24 hours. I was just notified that bronchial washings revealed enterococcus that was vancomycin resistant. She will be switched to Zyvox. Job ID: [id number]
[2018-11-21] MEDS: methylPREDNISolone Sod Succ 40 MG VIAL IVP SCH ×4 (00:01→17:24)
[2018-11-21] MEDS: HumaLOG 300 UNITS/3 ML VIAL SC PRN ×5 (00:04→21:19)
[2018-11-21] MEDS: Propofol 1,000 MG/100 ML VIAL IV PRN ×2 (02:22→07:25)
[2018-11-21] MEDS: Linezolid 600 MG in Premix Bag 1 BAG IVPB SCH ×2 (04:57→15:32)
[2018-11-21] MEDS: Metoclopramide HCl 10 MG/2 ML VIAL IVP SCH ×3 (05:03→21:18)
[2018-11-21 05:39] LABS: #Lymphocytes 0.9 thou/uL (1.20-3.40); #Monocytes 0.5 thou/uL (0.11-0.59); #Neutrophils 6.9 thou/uL (1.40-6.50); %Basophils 0.5 % (0.0-1.0); %Eosinophils 0.1 % (0.0-10.0); %Monocytes 6.2 % (0.0-10.0); %Neutrophils 82.2 % (42.0-75.0); Hemoglobin 10.1 g/dL (12.0-16.0); Mean Corpuscular HGB CONC 28.4 g/dL (32.0-36.0); Mean Corpuscular Hemoglobin 21.5 pg (27.0-31.0); Mean Corpuscular Volume 75.8 fL (78.0-98.0); Mean Platelet Volume 9.7 fL (7.4-10.4); Platelet Count 122 thou/uL (130-400); RBC Distribution Width 21.5 % (11.5-14.5); White Blood Cell (WBC) Count 8.3 thou/uL (4.8-10.8)
[2018-11-21 06:00] LABS: Phosphorus 4.1 mg/dL (2.3-4.7)
[2018-11-21 06:01] LABS: ALT (SGPT) 50 U/L (8-55); AST (SGOT) 21 U/L (5-34); Albumin 3.6 g/dL (3.5-5.0); Alkaline Phosphatase 65 U/L (40-150); BUN (Urea Nitrogen) 68 mg/dL (9.8-20.1); Bilirubin, Total 2.8 mg/dL (0.2-1.2); Calc. Creatinine Clearance 64 mL/min (70-130); Calcium 9.8 mg/dL (7.8-10.44); Estimated GFR-MDRD 42; Globulin 2.4 g/dL (2.4-3.5); Glucose 184 mg/dL (70-105); Magnesium 2.1 mg/dL (1.6-2.6)
[2018-11-21 06:10] LABS: Chloride 96 mmol/L (98-107); Potassium 3.5 mmol/L (3.5-5.1); Sodium 147 mmol/L (136-145)
[2018-11-21 06:13] LABS: Anion Gap 19 mmol/L (10-20); Carbon Dioxide 36 mmol/L (22-29)
--- NOTE | 2018-11-21 06:49 | PDOC.FM ---
- Subjective Subjective: No acute events overnight. VRE resulted on BAL culture as such zyvox initiated. - Objective Vital Signs & Weight: Vital Signs (12 hours) Pulse Resp Pulse Ox 11/21/18 06:00 19 11/21/18 04:00 14 11/21/18 02:12 86 16 93 L 11/21/18 02:00 16 11/21/18 00:00 17 11/20/18 22:00 15 11/20/18 21:34 81 16 95 11/20/18 20:00 22 H 93 L Weight Admit Weight 84.277 kg Weight 84.277 kg Most Recent Monitor Data Heart Rate from ECG 81 NIBP 107/53 NIBP BP-Mean 71 Respiration from ECG 17 SpO2 95 I&O: 11/19/18 11/20/18 11/21/18 06:59 06:59 06:59 Intake Total 2229 2705 2628 Output Total 3420 1660 1760 Balance -1191 1045 868 Result Diagrams: 11/21/18 04:35 11/21/18 04:35 Phys Exam - Physical Examination Constitutional: NAD sedated Neck: no JVD Respiratory: no wheezing, no rales scattered rhonchi Cardiovascular: RRR, no significant murmur, no rub Gastrointestinal: soft, non-tender, no distention, positive bowel sounds Musculoskeletal: pulses present edematous UE, mild Neurological: moves all 4 limbs sedated, withdraws from painful stimuli, spont mvmnt all 4 extremities Dx/Plan (1) VRE (vancomycin resistant enterococcus) culture positive Code(s): Z22.39 - CARRIER OF OTHER SPECIFIED BACTERIAL DISEASES Status: Acute (2) Metabolic alkalosis with respiratory acidosis Code(s): E87.4 - MIXED DISORDER OF ACID-BASE BALANCE Status: Acute (3) Acute and chronic respiratory failure with hypoxia Code(s): J96.21 - ACUTE AND CHRONIC RESPIRATORY FAILURE WITH HYPOXIA Status: Acute (4) UTI (urinary tract infection) due to Enterococcus Code(s): N39.0 - URINARY TRACT INFECTION, SITE NOT SPECIFIED; B95.2 - ENTEROCOCCUS THE CAUSE OF DISEASES CLASSIFIED ELSEWHERE Status: Acute (5) Hypoglycemia Code(s): E16.2 - HYPOGLYCEMIA, UNSPECIFIED Status: Resolved (6) RADHA (acute kidney injury) Code(s): N17.9 - ACUTE KIDNEY FAILURE, UNSPECIFIED Status: Acute (7) High anion gap metabolic acidosis Code(s): E87.2 - ACIDOSIS Status: Resolved (8) COPD (chronic obstructive pulmonary disease) Status: Chronic Qualifiers: (9) Pulmonary hypertension Code(s): I27.2 - OTHER SECONDARY PULMONARY HYPERTENSION * DO NOT USE * Status : Chronic (10) Elevated LFTs Code(s): R94.5 - ABNORMAL RESULTS OF LIVER FUNCTION STUDIES Status: Acute (11) Diabetes mellitus Code(s): E11.9 - TYPE 2 DIABETES MELLITUS WITHOUT COMPLICATIONS Status: Acute - Plan Plan: Acute on Chronic hypoxic respiratory failure pt remains on vent support bilevel PEEP 11-20, p support 18 fiO2 40% maintaining sats - bal culture growing VRE, zyvox started yesterday Acute Metabolic Encephalopathy, improving Multifactorial ABG shows metabolic alkalosis, likely contraction alkalosis s/p diuresis w/ appropriate resp acidosis. fluid pos yesterday, IVF switched to KVO, mild hypernatremia will trend, cosider increase FWF if Na increases Hyperglycemia (initially hypoglycemia) cont tube feeds and NPH monitor goal BS <240, will allow for mild hyperglycemia Septic Shock, improving -Blood cultures pending, UCx showed enterococcus faecalis -pressures stable, BAL growing VRE, vanc switched to zyvox, continue - levoquin added to regimen, cont zyvox levoquin VRE vanc switched to zyvox, cont with levaquin RADHA on CKD creatinine continues to improve. Cont to monitor fluid status/ Is/Os Transaminitis AST, ALT, and t. bili elevated, now downtrending. - GI suspects congestive hepatopathy, LFTs continue to downtrend, monitor - improving Lactic Acidosis, resolved LA elevated to 19.6, has downtrended to 1.1. Likely 2/2 hypoglycemia Coagulopathy s/p vit K, no evidence of continued bleeding monitor platelets>120k, cont to improve possibly temporary thrombocytopenia from sepsis , resolving COPD Chronic issue. Currently intubated a - FIO2 weaned to 40% and maintaining saturations, will be difficult wean Pulmonary HTN -briefly required FiO2 @ 80%, mucus plug removed and maintaining sats at 40% fiO2 - remains on bilevel pee 11-20, psupp 18, FiO2 40% HTN -Hold home HTN meds at this time due to hypotension from sepsis. - off pressors DM - will continue current NPH dose and monitor BS, allow for mild hyperglycemia goal <240 - given pt had some emesis yesterday in context of DM, will cont reglan RX. Monitor IsOs Code Status: Full VTE ppx: Heparin GI ppx: Protonix Lines/Tubes: L IJ CVC 11/14, R femoral trialysis cath 11/15, bagley 11/14, ET tube , OG tube 11/14 Dipso: continue to monitor in ICU, prognosis remains guarded Nutrition: tube feeds Addendum - Attending - Attending Attestation Date/Time: 11/21/18 0703 I personally evaluated the patient and discussed the management with Dr. Trejo. I agree with the History, Examination, Assessment and Plan documented above with any addition or exceptions noted below. Patient overall stable. Had some increased in PEEP yesterday to maintain O2 sats , currently on [id number]. Her BAL is growing VRE, Zyvox added to medication regimen. Her lung exam is stable. Vitals improved and afebrile. Continues to make adequate urine. Labs overall stable. She has had some episodes of emesis with suspected increased residuals with tube feeds, consider Reglan use as she is known diabetic and this could be related to some level of either DM or critical illness gastroparesis. Continue other meds. Does not appear volume overloaded though she does have some edema in her b/l arms associated with dependent state.
--- NOTE | 2018-11-21 08:55 | RAD ---
SINGLE VIEW CHEST: Date: 11/21/18 COMPARISON: 11/20/18. HISTORY: Pneumonia. FINDINGS: Single view of the chest shows an enlarged but stable cardiomediastinal silhouette. The lines and tub es are unchanged in position. Increased interstitial lung markings are present. There is obscurity of the left hemidiaphragm which may represent a small left pleural effusion. IMPRESSION: Stable exam. POS: [facility]
[2018-11-21] MEDS: Heparin 5,000 UNITS/ML VIAL SC SCH ×2 (09:45→21:17)
[2018-11-21] MEDS: Pantoprazole 40 MG VIAL IVP SCH (09:46)
[2018-11-21] MEDS: NPH, Human Insulin Isophane 300 UNIT/3 ML VIAL SC SCH ×2 (09:46→21:18)
[2018-11-21] MEDS: Levofloxacin 750 mg/D5W 500 MG in Premix Bag 1 BAG IVPB SCH (09:46)
--- NOTE | 2018-11-21 13:06 | PRG ---
DATE OF SERVICE: 11/21/2018 SUBJECTIVE: A 53-year-old female being seen for acute kidney injury. The patient denied any nausea, vomiting, or chest pain. The patient is intubated. OBJECTIVE: CONSTITUTIONAL: The patient is resting. VITAL SIGNS: Afebrile, pulse 78, breathing 16, and blood pressure 143/56. GENERAL APPEARANCE AND MENTAL STATUS: Fair. HEAD/NECK: Normocephalic. Atraumatic. EYES: EOMI. No deformity. EARS: Clear. No ulcers. NOSE: Intact. No lesions. MOUTH: Clear. No discharge. THROAT: Clear. No exudate. LUNGS: Clear. No crackles. CARDIAC: S1, S2. No rub. ABDOMEN: Benign. Bowel sounds positive. GENITALIA/RECTUM: Moore absent. BACK/EXTREMITIES: Edema 0+. NEUROLOGICAL: The patient is resting. SKIN: LYMPHATICS: LABORATORY DATA: Labs show hemoglobin 10.5, creatinine is 1.3. ASSESSMENT AND PLAN: 1. Acute kidney injury, stable. 2. Hypertension, stable. 3. Hypernatremia. Recommend free fluid, holding Lasix. I will sign off on this patient. Please reconsult as needed. Job ID: [id number]
--- NOTE | 2018-11-21 19:43 | PRG ---
DATE OF SERVICE: 11/21/2018 SUBJECTIVE: Chyna aVldovinos is on Precedex now, off propofol. OBJECTIVE: GENERAL: Awake and follows commands. VITAL SIGNS: Heart rates in the 60s, respiratory rates in the teens, oximetry is 92, and blood pressure 90/42. HEAD AND NECK: Unchanged. LUNGS: Clear. HEART: Regular rhythm. ABDOMEN: Soft. EXTREMITIES: Without asymmetry. NEUROLOGIC: Grossly nonfocal. IMAGING DATA: Chest x-ray is unchanged. LABORATORY DATA: White count 8.3, hemoglobin 10.1, platelets 122,000. Sodium 147, potassium 3.5, chloride 96, bicarb 36, BUN 68 and creatinine 1.33, and glucose 184. A pH of 7.5, CO2 of 50, and pO2 of 51. IMPRESSION AND PLAN: 1. Respiratory failure associated with chronic obstructive pulmonary disease exacerbation, respiratory bronchiolitis. 2. Vancomycin-resistant Enterococcus isolated in her bronchial lavage. Vancomycin sensitive Enterococcus was isolated in her urine. I suspect this may be a tracheobronchial colonizer as her abnormalities on radiograph cleared with therapeutic bronchoscopy and suctioning. I am hoping, we can continue to decrease ventilatory support and consider weaning and extubation in the morning. I discussed with her and answered all of his questions. CRITICAL CARE TIME: 30 minutes. Job ID: [id number]
[2018-11-22] MEDS: methylPREDNISolone Sod Succ 40 MG VIAL IVP SCH ×4 (00:24→17:01)
[2018-11-22] MEDS: HumaLOG 300 UNITS/3 ML VIAL SC PRN ×5 (00:30→22:37)
[2018-11-22] MEDS: Linezolid 600 MG in Premix Bag 1 BAG IVPB SCH ×2 (04:02→17:00)
[2018-11-22 05:22] LABS: Phosphorus 3.4 mg/dL (2.3-4.7)
[2018-11-22 05:25] LABS: ALT (SGPT) 37 U/L (8-55); AST (SGOT) 20 U/L (5-34); Albumin 3.4 g/dL (3.5-5.0); Alkaline Phosphatase 62 U/L (40-150); BUN (Urea Nitrogen) 60 mg/dL (9.8-20.1); Bilirubin, Total 2.5 mg/dL (0.2-1.2); Calc. Creatinine Clearance 0 mL/min (70-130); Calcium 9.7 mg/dL (7.8-10.44); Estimated GFR-MDRD 49; Globulin 2.2 g/dL (2.4-3.5); Glucose 161 mg/dL (70-105); Magnesium 2.2 mg/dL (1.6-2.6); Protein, Total 5.6 g/dL (6.0-8.3)
[2018-11-22 05:26] LABS: #Lymphocytes 1.3 thou/uL (1.20-3.40); #Monocytes 0.8 thou/uL (0.11-0.59); #Neutrophils 7.3 thou/uL (1.40-6.50); %Basophils 0.3 % (0.0-1.0); %Eosinophils 0.3 % (0.0-10.0); %Lymphocytes 13.9 % (21.0-51.0); %Monocytes 8.5 % (0.0-10.0); %Neutrophils 76.9 % (42.0-75.0); Hemoglobin 10.1 g/dL (12.0-16.0); Mean Corpuscular HGB CONC 28.7 g/dL (32.0-36.0); Mean Corpuscular Hemoglobin 22.2 pg (27.0-31.0); Mean Corpuscular Volume 77.3 fL (78.0-98.0); Platelet Count 116 thou/uL (130-400); RBC Distribution Width 21.4 % (11.5-14.5); Red Blood Cell (RBC) Count 4.53 mill/uL (4.20-5.40); White Blood Cell (WBC) Count 9.5 thou/uL (4.8-10.8)
[2018-11-22 05:28] LABS: Potassium 2.8 mmol/L (3.5-5.1)
[2018-11-22 05:34] LABS: Anion Gap 18 mmol/L (10-20); Carbon Dioxide 35 mmol/L (22-29); Chloride 99 mmol/L (98-107); Sodium 149 mmol/L (136-145)
[2018-11-22] MEDS: Metoclopramide HCl 10 MG/2 ML VIAL IVP SCH (05:42)
[2018-11-22] MEDS: Potassium Chloride 40 MEQ in Premix Bag 1 BAG IVPB PRN (05:44)
[2018-11-22] MEDS ORDERED: Potassium Chloride 20 MEQ TAB PO SCH (07:45)
--- NOTE | 2018-11-22 07:52 | PDOC.EVN ---
Addendum - Attending - Attending Attestation Date/Time: 11/22/18 8206 I personally evaluated the patient and discussed the management with Dr. Trejo. I agree with the History, Examination, Assessment and Plan documented in his progress note with any addition or exceptions noted below. Patient overall improved this morning. Able to simply communicate since on Precedex. Possible plans for extubation this morning. Lung exam stable. She does have hypernatremia associated with free water deficit as well as hypokalemia this morning. If not extubated, will increase free water flushes with tube feeds. Replete K. Renal labs stable and continues to make adequate urine. Further mgmt per Pulm recs regarding extubation.
--- NOTE | 2018-11-22 08:51 | RAD ---
CHEST 1 VIEW: INDICATION: Pneumonia. COMPARISON: Prior exam dated 11/21/2018. FINDINGS: Cardiomegaly and mild pulmonary vascular congestion persists. Left costophrenic angle is excluded. Left IJ central venous catheter and ET tube is unchanged. Gastric catheter is unchanged. No pneumot horax is evident. IMPRESSION: Stable exam. POS: [facility]
[2018-11-22] MEDS: Levofloxacin 750 mg/D5W 500 MG in Premix Bag 1 BAG IVPB SCH (10:52)
[2018-11-22] MEDS: Pantoprazole 40 MG VIAL IVP SCH (10:53)
[2018-11-22] MEDS: Heparin 5,000 UNITS/ML VIAL SC SCH ×2 (10:54→22:35)
[2018-11-22] MEDS: NPH, Human Insulin Isophane 300 UNIT/3 ML VIAL SC SCH ×2 (10:58→22:39)
--- NOTE | 2018-11-22 11:36 | PDOC.FM ---
- Subjective Subjective: NICHOLAS overnight. Pt continues to improve. Pt denies any pain. Sedation currently off and pt following commands with no acutte complaints. - Objective Vital Signs & Weight: Vital Signs (12 hours) Pulse Resp Pulse Ox 11/22/18 10:48 93 11/22/18 08:00 24 H 11/22/18 07:55 80 11/22/18 06:00 16 11/22/18 04:00 15 11/22/18 02:30 67 19 95 11/22/18 02:00 13 11/22/18 00:00 13 Weight Admit Weight 84.7 kg Weight 76 g Most Recent Monitor Data Heart Rate from ECG 79 NIBP 111/56 NIBP BP-Mean 74 Respiration from ECG 17 SpO2 97 I&O: 11/21/18 11/22/18 11/23/18 06:59 06:59 06:59 Intake Total 2628 2623 Output Total 1760 1890 Balance 868 733 Result Diagrams: 11/22/18 04:30 11/22/18 04:30 Phys Exam - Physical Examination Constitutional: NAD HEENT: PERRLA, moist MMs, sclera anicteric intubated Neck: no nodes, no JVD Respiratory: no wheezing, no rales scattered rhonchi Cardiovascular: RRR, no significant murmur, no rub Gastrointestinal: soft, non-tender, no distention, positive bowel sounds Musculoskeletal: no edema, pulses present Neurological: non-focal, moves all 4 limbs follows commands Skin: cap refill <2 seconds Dx/Plan (1) Acute and chronic respiratory failure with hypoxia Code(s): J96.21 - ACUTE AND CHRONIC RESPIRATORY FAILURE WITH HYPOXIA Status: Acute (2) VRE (vancomycin resistant enterococcus) culture positive Code(s): Z22.39 - CARRIER OF OTHER SPECIFIED BACTERIAL DISEASES Status: Acute (3) UTI (urinary tract infection) due to Enterococcus Code(s): N39.0 - URINARY TRACT INFECTION, SITE NOT SPECIFIED; B95.2 - ENTEROCOCCUS THE CAUSE OF DISEASES CLASSIFIED ELSEWHERE Status: Acute (4) RADHA (acute kidney injury) Code(s): N17.9 - ACUTE KIDNEY FAILURE, UNSPECIFIED Status: Acute (5) COPD (chronic obstructive pulmonary disease) Status: Chronic Qualifiers: (6) Pulmonary hypertension Code(s): I27.2 - OTHER SECONDARY PULMONARY HYPERTENSION * DO NOT USE * Status : Chronic (7) Elevated LFTs Code(s): R94.5 - ABNORMAL RESULTS OF LIVER FUNCTION STUDIES Status: Acute (8) Diabetes mellitus Code(s): E11.9 - TYPE 2 DIABETES MELLITUS WITHOUT COMPLICATIONS Status: Acute - Plan Plan: Acute on Chronic hypoxic respiratory failure switched to cpap this am and off seddation, hopeful for extubation today pulm followign, appreciate recommendations Hyperglycemia (initially hypoglycemia) cont tube feeds and NPH monitor goal BS <240, will allow for mild hyperglycemia currently stable VRE vanc switched to zyvox, cont with levaquin RADHA on CKD creatinine continues to improve. Cont to monitor fluid status/ Is/Os continues to downtrend COPD Chronic issue. Currently intubated DM - will continue current NPH dose and monitor BS, allow for mild hyperglycemia goal <240 - blood sugar remains stable - continue to monitor - reglan switched to prn Hypernatremia: - free water deficit, cont free water flushes and increase amount if pt not successfully extubated today Hypokalemia: replace Code Status: Full VTE ppx: Heparin GI ppx: Protonix Lines/Tubes: L IJ CVC 11/14, R femoral trialysis cath 11/15, bagley 11/14, ET tube , OG tube 11/14 Dipso: continue to monitor in ICU, prognosis remains guarded Nutrition: tube feeds Dispo: Pt continues to improve. Hopeful for extubation today. Replace elytes prn and consider increase free water flushes if not extubated today.
[2018-11-22 13:19] LABS: Potassium 3.2 mmol/L (3.5-5.1)
[2018-11-22] MEDS ORDERED: Metoclopramide HCl 10 MG/2 ML VIAL IVP PRN (13:44)
[2018-11-22] MEDS ORDERED: Potassium Chloride 40 MEQ in Premix Bag 1 BAG IVPB SCH (14:00)
[2018-11-22] MEDS ORDERED: methylPREDNISolone Sod Succ/PF 125 MG/2 ML VIAL IVP SCH (14:15)
[2018-11-23] MEDS: methylPREDNISolone Sod Succ 40 MG VIAL IVP SCH ×4 (00:51→17:37)
[2018-11-23] MEDS: Linezolid 600 MG in Premix Bag 1 BAG IVPB SCH ×2 (04:34→16:31)
[2018-11-23 05:22] LABS: Phosphorus 3.3 mg/dL (2.3-4.7)
[2018-11-23 05:30] LABS: ALT (SGPT) 32 U/L (8-55); AST (SGOT) 23 U/L (5-34); Albumin 3.4 g/dL (3.5-5.0); Alkaline Phosphatase 60 U/L (40-150); BUN (Urea Nitrogen) 42 mg/dL (9.8-20.1); Bilirubin, Total 2.5 mg/dL (0.2-1.2); Calc. Creatinine Clearance 0 mL/min (70-130); Calcium 9.4 mg/dL (7.8-10.44); Estimated GFR-MDRD 62; Globulin 2.3 g/dL (2.4-3.5); Glucose 128 mg/dL (70-105); Magnesium 2.2 mg/dL (1.6-2.6); Protein, Total 5.7 g/dL (6.0-8.3)
[2018-11-23 05:36] LABS: #Lymphocytes 1.2 thou/uL (1.20-3.40); #Monocytes 0.7 thou/uL (0.11-0.59); %Basophils 0.3 % (0.0-1.0); %Eosinophils 0.2 % (0.0-10.0); %Lymphocytes 13.3 % (21.0-51.0); %Monocytes 7.4 % (0.0-10.0); %Neutrophils 78.7 % (42.0-75.0); Hemoglobin 10.2 g/dL (12.0-16.0); Mean Corpuscular HGB CONC 28.2 g/dL (32.0-36.0); Mean Corpuscular Hemoglobin 21.9 pg (27.0-31.0); Mean Corpuscular Volume 77.5 fL (78.0-98.0); Platelet Count 131 thou/uL (130-400); RBC Distribution Width 21.7 % (11.5-14.5); Red Blood Cell (RBC) Count 4.65 mill/uL (4.20-5.40); White Blood Cell (WBC) Count 8.8 thou/uL (4.8-10.8)
[2018-11-23 05:39] LABS: Anion Gap 16 mmol/L (10-20); Carbon Dioxide 35 mmol/L (22-29); Chloride 104 mmol/L (98-107); Potassium 3.4 mmol/L (3.5-5.1); Sodium 152 mmol/L (136-145)
[2018-11-23] MEDS ORDERED: Potassium Chloride 20 MEQ TAB PO SCH (06:15)
[2018-11-23] MEDS: Dextrose 5% in Water 1,000 ML IV SCH ×2 (06:52→16:31)
--- NOTE | 2018-11-23 07:38 | RAD ---
CHEST 1 VIEW: Date: 11/23/18 HISTORY: Pneumonia. COMPARISON: 11/22/18. FINDINGS: Cardiomegaly with increased linear and interstitial markings bilaterally and costophrenic angle blunt ing. Endotracheal tube and left central line in place. IMPRESSION: Cardiomegaly with bilateral vascular congestion and increased interstitial and linear markings bilate rally, particularly in the bases. Overall stable. Continue short-term follow-up. POS: RRE
--- NOTE | 2018-11-23 07:44 | PDOC.FM ---
- Subjective Subjective: NICHOLAS overnight. Pt did well on CPAP yesterday, failed leak test yesterday. Will attempt to extubate today. She is following commands and denies any discomfort. - Objective Vital Signs & Weight: Vital Signs (12 hours) Pulse Resp BP Pulse Ox 11/23/18 06:50 79 113/55 L 11/23/18 06:49 79 15 96 11/23/18 06:00 20 11/23/18 04:00 19 11/23/18 02:18 77 11/23/18 02:17 75 22 H 97 11/23/18 02:00 20 11/23/18 00:00 18 91 L 11/22/18 22:15 77 11/22/18 22:14 77 22 H 89 L 11/22/18 22:00 21 H 11/22/18 20:00 21 H 91 L Weight Admit Weight 84.246 kg Weight 78.9 kg Most Recent Monitor Data Heart Rate from ECG 74 NIBP 113/55 NIBP BP-Mean 74 Respiration from ECG 25 SpO2 94 I&O: 11/22/18 11/23/18 11/24/18 06:59 06:59 06:59 Intake Total 2623 1515 Output Total 1890 1775 Balance 733 -260 Result Diagrams: 11/23/18 04:30 11/23/18 04:30 Phys Exam - Physical Examination Constitutional: NAD intubated HEENT: PERRLA, sclera anicteric Neck: no nodes, no JVD scattered rhonchi Cardiovascular: RRR, no significant murmur, no rub Gastrointestinal: soft, non-tender, no distention, positive bowel sounds Musculoskeletal: no edema, pulses present Neurological: non-focal, moves all 4 limbs Skin: no rash, cap refill <2 seconds Dx/Plan (1) Acute and chronic respiratory failure with hypoxia Code(s): J96.21 - ACUTE AND CHRONIC RESPIRATORY FAILURE WITH HYPOXIA Status: Acute (2) VRE (vancomycin resistant enterococcus) culture positive Code(s): Z22.39 - CARRIER OF OTHER SPECIFIED BACTERIAL DISEASES Status: Acute (3) UTI (urinary tract infection) due to Enterococcus Code(s): N39.0 - URINARY TRACT INFECTION, SITE NOT SPECIFIED; B95.2 - ENTEROCOCCUS THE CAUSE OF DISEASES CLASSIFIED ELSEWHERE Status: Acute (4) RADHA (acute kidney injury) Code(s): N17.9 - ACUTE KIDNEY FAILURE, UNSPECIFIED Status: Acute (5) COPD (chronic obstructive pulmonary disease) Status: Chronic Qualifiers: (6) Pulmonary hypertension Code(s): I27.2 - OTHER SECONDARY PULMONARY HYPERTENSION * DO NOT USE * Status : Chronic (7) Elevated LFTs Code(s): R94.5 - ABNORMAL RESULTS OF LIVER FUNCTION STUDIES Status: Acute (8) Diabetes mellitus Code(s): E11.9 - TYPE 2 DIABETES MELLITUS WITHOUT COMPLICATIONS Status: Acute (9) Hypernatremia Code(s): E87.0 - HYPEROSMOLALITY AND HYPERNATREMIA Status: Acute - Plan Plan: Acute on Chronic hypoxic respiratory failure will atttempt extubation this am Hyperglycemia (initially hypoglycemia) cont tube feeds and NPH monitor goal BS <240, will allow for mild hyperglycemia currently stable VRE vanc switched to zyvox, cont with levaquin RADHA on CKD resolved COPD Chronic issue. Currently intubated attempt extubation this am DM - will continue current NPH dose and monitor BS, allow for mild hyperglycemia goal <240 - blood sugar remains stable - continue to monitor - reglan switched to prn Hypernatremia: - free water deficit of 3.3 L OG tube DCd yesterday, as such will give D5W @ 150 and monitor sodium q2hr until extubated and pt tolerating PO Hypokalemia: replace Code Status: Full VTE ppx: Heparin GI ppx: Protonix Lines/Tubes: L IJ CVC 11/14, R femoral trialysis cath 11/24, bagley 11/14, ET tube , OG tube 11/14 Dipso: continue to monitor in ICU, prognosis remains guarded Nutrition: tube feeds Dispo: Stable. Pt continues to improve. Hopeful for extubation today. Add D5W for mild hypernatremia and free water deficit. Addendum - Attending - Attending Attestation Date/Time: 11/23/18 9981 I personally evaluated the patient and discussed the management with Dr. Trejo. I agree with the History, Examination, Assessment and Plan documented above with any addition or exceptions noted below. Patient overall stable this morning. Possible extubation this morning. SHe has become progressively hypernatremic from free water deficit, D5W started this morning. Renal function stable. She is volume down this morning. Continue current meds and re-eval after extubation.
[2018-11-23] MEDS: Heparin 5,000 UNITS/ML VIAL SC SCH ×2 (08:50→21:46)
[2018-11-23] MEDS: Pantoprazole 40 MG VIAL IVP SCH (08:51)
[2018-11-23] MEDS: NPH, Human Insulin Isophane 300 UNIT/3 ML VIAL SC SCH ×2 (08:51→21:47)
[2018-11-23] MEDS: Levofloxacin 750 mg/D5W 500 MG in Premix Bag 1 BAG IVPB SCH (08:51)
--- NOTE | 2018-11-23 10:05 | PRG ---
DATE OF SERVICE: 11/22/2018 SUBJECTIVE: Chyna Valdovinos awakens. She follows commands. She is very weak. She did not pass a leak test today, but I cannot imagine that she has a significant vocal cord edema, given how long she has been on moderate dose steroids. OBJECTIVE: VITAL SIGNS: She is afebrile and respiratory rate is in the teens. Minute volume is 9 to 10 L/minute. LUNGS: Clear. HEART: Regular rhythm. ABDOMEN: Soft and nontender. EXTREMITIES: Without asymmetry. LABORATORY DATA: White count 9.5, hemoglobin 10.1, platelets 116,000. Sodium 149, potassium 3.8, chloride 99, bicarb 35, BUN 60, and creatinine 1.15. IMPRESSION: 1. Chronic obstructive pulmonary disease with respiratory bronchiolitis secondary to ongoing heavy tobacco use. 2. Acute on chronic respiratory failure with hypoxia and hypercarbia. We will leave her on pressure support of 10, 5 PEEP overnight, and re-evaluate her in the morning. Consider extubation with the bronchoscope standing nearby. Job ID: [id number] [facility]
[2018-11-23 12:01] LABS: BUN (Urea Nitrogen) 36 mg/dL (9.8-20.1); Calc. Creatinine Clearance 83 mL/min (70-130); Calcium 9.3 mg/dL (7.8-10.44); Estimated GFR-MDRD 60; Glucose 178 mg/dL (70-105)
[2018-11-23 12:11] LABS: Anion Gap 15 mmol/L (10-20); Carbon Dioxide 34 mmol/L (22-29); Chloride 101 mmol/L (98-107); Potassium 3.2 mmol/L (3.5-5.1); Sodium 147 mmol/L (136-145)
[2018-11-23 14:46] LABS: BUN (Urea Nitrogen) 35 mg/dL (9.8-20.1); Calc. Creatinine Clearance 87 mL/min (70-130); Calcium 9.3 mg/dL (7.8-10.44); Estimated GFR-MDRD 64; Glucose 143 mg/dL (70-105)
[2018-11-23 14:55] LABS: Anion Gap 15 mmol/L (10-20); Carbon Dioxide 34 mmol/L (22-29); Chloride 100 mmol/L (98-107); Potassium 3.4 mmol/L (3.5-5.1); Sodium 146 mmol/L (136-145)
--- NOTE | 2018-11-23 15:42 | PRG ---
DATE OF SERVICE: 11/23/2018 SUBJECTIVE: Ms. Valdovinos is awake and alert. No distress this morning. She actually had a leak this morning, which surprised me. OBJECTIVE: VITAL SIGNS: Heart rates in the 80s. Blood pressure is 123/59, respiratory rate is 18. LUNGS: Clear. HEART: Regular rhythm. ABDOMEN: Soft. EXTREMITIES: Without change. She has no new findings. LABORATORY DATA: White count 8.8, hemoglobin 10.2, platelets 131. Sodium 146, potassium 3.4, chloride 100, bicarb 34, BUN 35, creatinine 0.9. IMPRESSION: 1. Respiratory failure. 2. Vancomycin-resistant Enterococcus on bronchial washings, likely a colonizer. 3. Lobar atelectasis secondary to mucus plug. 4. 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 5. Steroid dependence. 6. Medical and tobacco cessation noncompliance. 7. Obesity. 8. Extreme deconditioning, complicated now by a steroid myopathy. She cannot lift her arms overhead. I felt she is a candidate for extubation. Checked on her an hour later, she is having no respiratory issues, was extremely weak. She will need placement in a assisted facility after this, as I explained to the several days ago. She is doing well post extubation. CRITICAL CARE TIME: 30 minutes. Job ID: [id number]
[2018-11-23] MEDS ORDERED: Potassium Chloride 40 MEQ in Premix Bag 1 BAG IVPB SCH (22:00)
[2018-11-23] MEDS: Ketorolac Tromethamine 30 MG/ML VIAL IVP PRN (22:17)
[2018-11-24] MEDS: methylPREDNISolone Sod Succ 40 MG VIAL IVP SCH ×4 (00:30→21:26)
[2018-11-24] MEDS: HumaLOG 300 UNITS/3 ML VIAL SC PRN (00:38)
[2018-11-24 04:27] LABS: ALT (SGPT) 33 U/L (8-55); AST (SGOT) 25 U/L (5-34); Albumin 3.5 g/dL (3.5-5.0); Alkaline Phosphatase 58 U/L (40-150); Anion Gap 14 mmol/L (10-20); BUN (Urea Nitrogen) 35 mg/dL (9.8-20.1); Calc. Creatinine Clearance 83 mL/min (70-130); Calcium 8.9 mg/dL (7.8-10.44); Carbon Dioxide 34 mmol/L (22-29); Chloride 96 mmol/L (98-107); Estimated GFR-MDRD 60; Globulin 2.3 g/dL (2.4-3.5); Glucose 130 mg/dL (70-105); Potassium 3.7 mmol/L (3.5-5.1); Protein, Total 5.8 g/dL (6.0-8.3); Sodium 140 mmol/L (136-145)
[2018-11-24 04:32] LABS: #Basophils 0.1 thou/uL (0.0-0.2); #Lymphocytes 2.1 thou/uL (1.20-3.40); #Neutrophils 11.5 thou/uL (1.40-6.50); %Basophils 0.5 % (0.0-1.0); %Eosinophils 0.3 % (0.0-10.0); %Lymphocytes 14.3 % (21.0-51.0); %Monocytes 6.6 % (0.0-10.0); %Neutrophils 78.3 % (42.0-75.0); Anisocytosis SLIGHT = 6-15 cells (100X) (0-5/hpf); Hemoglobin 10.4 g/dL (12.0-16.0); Hypochromia SLIGHT = 6-15 cells (100X) (0-5/hpf); MDiff Complete? YES; Mean Corpuscular HGB CONC 28.8 g/dL (32.0-36.0); Mean Corpuscular Hemoglobin 22.2 pg (27.0-31.0); Mean Corpuscular Volume 76.9 fL (78.0-98.0); Mean Platelet Volume 9.6 fL (7.4-10.4); Platelet Count 151 thou/uL (130-400); RBC Distribution Width 21.2 % (11.5-14.5); Red Blood Cell (RBC) Count 4.68 mill/uL (4.20-5.40); White Blood Cell (WBC) Count 14.7 thou/uL (4.8-10.8)
[2018-11-24] MEDS: Linezolid 600 MG in Premix Bag 1 BAG IVPB SCH ×2 (04:53→16:42)
[2018-11-24] MEDS: Ketorolac Tromethamine 30 MG/ML VIAL IVP PRN (06:39)
--- NOTE | 2018-11-24 07:50 | RAD ---
CHEST 1 VIEW: Date: 11/24/18 INDICATION: History of pneumonia. COMPARISON: Prior exam dated 11/23/18. FINDINGS: Cardiomegaly persists. Pulmonary vascular congestion persists. Patient has been extubated. Left IJ ce ntral venous catheter is stable. Patchy opacities within the right infrahilar region and right mid federico ng persist. Patchy opacities within the retrocardiac left lower lobe persist. No pneumothorax is evid ent. IMPRESSION: 1. Interval extubation. 2. Persistent parenchymal opacities. Continued radiographic follow-up is recommended. 3. Stable cardiomegaly and mild pulmonary vascular congestion. POS: BH
--- NOTE | 2018-11-24 08:07 | PDOC.FM ---
- Subjective Subjective: No acute events overnight. Pt successfully extubated yesterday and doing well on O2 via NC. No complaints this am. - Objective MAR Reviewed: Yes Vital Signs & Weight: Vital Signs (12 hours) Temp Pulse Resp Pulse Ox 11/24/18 04:00 98.1 F 11/24/18 02:07 89 22 H 86 L 11/24/18 00:00 97.8 F 11/23/18 22:14 93 21 H 91 L Weight Admit Weight 84.246 kg Weight 79.7 kg Most Recent Monitor Data Heart Rate from ECG 84 NIBP 113/69 NIBP BP-Mean 83 Respiration from ECG 17 SpO2 85 I&O: 11/23/18 11/24/18 11/25/18 06:59 06:59 06:59 Intake Total 1515 3169 Output Total 1775 1100 Balance -260 2069 Result Diagrams: 11/24/18 03:42 11/24/18 03:42 Phys Exam - Physical Examination Constitutional: NAD HEENT: PERRLA, moist MMs, sclera anicteric Neck: no nodes, no JVD Respiratory: no wheezing, no rales course breath sounds, diminished bases, poor air entry Cardiovascular: RRR, no significant murmur, no rub Gastrointestinal: soft, non-tender, no distention, positive bowel sounds Musculoskeletal: no edema, pulses present Neurological: non-focal, moves all 4 limbs Psychiatric: normal affect Skin: no rash Dx/Plan (1) Acute and chronic respiratory failure with hypoxia Code(s): J96.21 - ACUTE AND CHRONIC RESPIRATORY FAILURE WITH HYPOXIA Status: Acute (2) VRE (vancomycin resistant enterococcus) culture positive Code(s): Z22.39 - CARRIER OF OTHER SPECIFIED BACTERIAL DISEASES Status: Acute (3) UTI (urinary tract infection) due to Enterococcus Code(s): N39.0 - URINARY TRACT INFECTION, SITE NOT SPECIFIED; B95.2 - ENTEROCOCCUS THE CAUSE OF DISEASES CLASSIFIED ELSEWHERE Status: Acute (4) COPD (chronic obstructive pulmonary disease) Status: Chronic Qualifiers: (5) Pulmonary hypertension Code(s): I27.2 - OTHER SECONDARY PULMONARY HYPERTENSION * DO NOT USE * Status : Chronic (6) Elevated LFTs Code(s): R94.5 - ABNORMAL RESULTS OF LIVER FUNCTION STUDIES Status: Acute (7) Diabetes mellitus Code(s): E11.9 - TYPE 2 DIABETES MELLITUS WITHOUT COMPLICATIONS Status: Acute (8) Hypernatremia Code(s): E87.0 - HYPEROSMOLALITY AND HYPERNATREMIA Status: Resolved - Plan Plan: Acute on Chronic hypoxic respiratory failure extubated yesterday monitor in ICU this am and if pt remains stable and O2 sats are adequate consider transfer to IM today Hyperglycemia (initially hypoglycemia) clear liquids and ADAT s/p extubation monitor blood sugar will allow for hyperglycemia, goal <200 VRE vanc switched to zyvox, cont with levaquin COPD Chronic issue. Currently doing well on O2 via NC cont ICU monitoring and consider transfer to [facility] later today DM - will continue current NPH dose and monitor BS, allow for mild hyperglycemia goal <200 - continue to monitor - reglan BID Hypernatremia: -resolved Code Status: Full VTE ppx: Heparin GI ppx: Protonix Lines/Tubes: L IJ CVC 11/14, bagley 11/14, ET tube 11/14, OG tube 11/14 Dipso: continue to monitor in ICU, prognosis remains guarded Nutrition: tube feeds Dispo: Stable. Pt continues to improve. Consider transfer to [facility] if pt does well throughout the day. Add IS and continue PTOT. Check C diff 2/2 soft stools. Overall improving clinically. Elytes stable. Addendum - Attending - Attending Attestation Date/Time: 11/24/18 0814 I personally evaluated the patient and discussed the management with Dr. Trejo. I agree with the History, Examination, Assessment and Plan documented above with any addition or exceptions noted below. Patient is doing improved this morning s/p extubation yesterday. She is on NC for O2 and has mid 80s sats, suspect this is due to both poor effort, chronic lung disease, and some mild pulm vascular congestion as confirmed by CXR. Consider restarting diuretic to see if we can get her back to euvolemia. Her renal function is stable and other labs appear stable. Suspect transfer to downgraded care in [facility] today. She will need prolonged and aggressive therapy to get back to her baseline due to her prolonged intubation. Mild leukocytosis today but afebrile, continue to monitor.
[2018-11-24] MEDS: Levofloxacin 750 mg/D5W 500 MG in Premix Bag 1 BAG IVPB SCH (09:55)
[2018-11-24] MEDS: Heparin 5,000 UNITS/ML VIAL SC SCH (10:00)
[2018-11-24] MEDS: Pantoprazole 40 MG VIAL IVP SCH (10:38)
[2018-11-24] MEDS: Enoxaparin Sodium 40 MG/0.4 ML SYRINGE SC SCH (10:38)
[2018-11-24] MEDS: NPH, Human Insulin Isophane 300 UNIT/3 ML VIAL SC SCH ×2 (10:39→21:49)
--- NOTE | 2018-11-24 10:51 | PRG ---
DATE OF SERVICE: 11/24/2018 SUBJECTIVE: Chyna Valdovinos is doing well postextubation. She is extremely weak. OBJECTIVE: VITAL SIGNS: Heart rate is 80, respiratory rate is 20, oximetry is 89 on 5 L cannula, and blood pressure 113/69. LUNGS: Clear. HEART: Regular rhythm. ABDOMEN: Soft. LABORATORY DATA: White count 14.7, hemoglobin 10.4, and platelets 151. Sodium 140, potassium 3.7, chloride 96, bicarb 34, BUN 35, and creatinine 0.97. Apparently, her showed up last night and was in a manic phase (he has bipolar illness). He had to be escorted out of the ICU. Chest radiograph shows persistent bilateral patchy infiltrates. IMPRESSION AND PLAN: 1. Tracheobronchitis with Enterococcus that is vancomycin-resistant. 2. ? Pneumonia versus mucous plugging. 3. End-stage chronic obstructive pulmonary disease. 4. Respiratory bronchiolitis. 5. Ongoing tobacco use up until this admission. I have decreased her steroids. She will need placement in a senior living unit. Unfortunately, her is not competent to make medical decisions for her. She really needs to be a do not resuscitate patient. I am not sure she can comprehend the gravity of those decisions at this point in time. She is probably stable to move out of the critical unit care unit, although her short-term prognosis is extremely poor. Job ID: [id number]
[2018-11-24] MEDS ORDERED: Metoclopramide 10 MG/10 ML UDCUP PO SCH (11:30)
[2018-11-25 05:02] LABS: Phosphorus 3.2 mg/dL (2.3-4.7)
[2018-11-25 05:05] LABS: ALT (SGPT) 27 U/L (8-55); AST (SGOT) 23 U/L (5-34); Albumin 3.5 g/dL (3.5-5.0); Alkaline Phosphatase 56 U/L (40-150); Anion Gap 14 mmol/L (10-20); BUN (Urea Nitrogen) 32 mg/dL (9.8-20.1); Bilirubin, Total 2.9 mg/dL (0.2-1.2); Calc. Creatinine Clearance 88 mL/min (70-130); Calcium 8.7 mg/dL (7.8-10.44); Carbon Dioxide 32 mmol/L (22-29); Chloride 97 mmol/L (98-107); Estimated GFR-MDRD 64; Globulin 2.2 g/dL (2.4-3.5); Glucose 125 mg/dL (70-105); Magnesium 2.1 mg/dL (1.6-2.6); Potassium 3.5 mmol/L (3.5-5.1); Protein, Total 5.7 g/dL (6.0-8.3); Sodium 139 mmol/L (136-145)
[2018-11-25] MEDS: Linezolid 600 MG in Premix Bag 1 BAG IVPB SCH ×2 (05:33→15:35)
[2018-11-25 05:58] LABS: #Eosinphils 0.1 thou/uL (0.0-0.7); #Lymphocytes 2.6 thou/uL (1.20-3.40); #Monocytes 0.8 thou/uL (0.11-0.59); #Neutrophils 8.5 thou/uL (1.40-6.50); %Basophils 0.3 % (0.0-1.0); %Eosinophils 0.7 % (0.0-10.0); %Lymphocytes 21.7 % (21.0-51.0); %Monocytes 6.5 % (0.0-10.0); %Neutrophils 70.8 % (42.0-75.0); Anisocytosis MODERATE=16-30 cells (100X) (0-5/hpf); MDiff Complete? YES; Mean Corpuscular HGB CONC 28.8 g/dL (32.0-36.0); Mean Corpuscular Hemoglobin 21.8 pg (27.0-31.0); Mean Corpuscular Volume 75.6 fL (78.0-98.0); Ovalocytes SLIGHT = 2-5 cells (100X) (0-1/hpf); Platelet Count 148 thou/uL (130-400); RBC Distribution Width 21.5 % (11.5-14.5); Red Blood Cell (RBC) Count 4.57 mill/uL (4.20-5.40)
--- NOTE | 2018-11-25 07:32 | PDOC.FM ---
- Subjective Subjective: Pt desatted into high 80s overnight, however, per pt she runs 85%-95% on 3L NC at home. No concerns this am. Pt reports she is hungry. - Objective Vital Signs & Weight: Vital Signs (12 hours) Temp Pulse Resp Pulse Ox 11/25/18 07:00 97.7 F 11/25/18 06:49 93 L 11/25/18 06:43 87 23 H 93 L 11/25/18 02:03 96 20 92 L 11/25/18 00:01 92 21 H 94 L 11/25/18 00:00 98.8 F 11/24/18 22:28 79 24 H 94 L 11/24/18 20:00 98.1 F 93 L Weight Admit Weight 84.246 kg Weight 86.228 kg Most Recent Monitor Data Heart Rate from ECG 87 NIBP 123/83 NIBP BP-Mean 96 Respiration from ECG 19 SpO2 95 I&O: 11/24/18 11/25/18 11/26/18 06:59 06:59 06:59 Intake Total 3169 1272 Output Total 1100 675 Balance 2069 597 Result Diagrams: 11/25/18 04:20 11/25/18 04:20 Phys Exam - Physical Examination Constitutional: NAD HEENT: PERRLA, sclera anicteric Neck: no nodes scattered wheezes, diminished bases Cardiovascular: RRR, no significant murmur, no rub Gastrointestinal: soft, non-tender, no distention, positive bowel sounds Musculoskeletal: pulses present, edema present Neurological: non-focal, moves all 4 limbs Psychiatric: normal affect Skin: cap refill <2 seconds Dx/Plan (1) Acute and chronic respiratory failure with hypoxia Code(s): J96.21 - ACUTE AND CHRONIC RESPIRATORY FAILURE WITH HYPOXIA Status: Acute (2) VRE (vancomycin resistant enterococcus) culture positive Code(s): Z22.39 - CARRIER OF OTHER SPECIFIED BACTERIAL DISEASES Status: Acute (3) UTI (urinary tract infection) due to Enterococcus Code(s): N39.0 - URINARY TRACT INFECTION, SITE NOT SPECIFIED; B95.2 - ENTEROCOCCUS THE CAUSE OF DISEASES CLASSIFIED ELSEWHERE Status: Acute (4) COPD (chronic obstructive pulmonary disease) Status: Chronic Qualifiers: (5) Pulmonary hypertension Code(s): I27.2 - OTHER SECONDARY PULMONARY HYPERTENSION * DO NOT USE * Status : Chronic (6) Elevated LFTs Code(s): R94.5 - ABNORMAL RESULTS OF LIVER FUNCTION STUDIES Status: Acute (7) Diabetes mellitus Code(s): E11.9 - TYPE 2 DIABETES MELLITUS WITHOUT COMPLICATIONS Status: Acute - Plan Plan: Acute on Chronic hypoxic respiratory failure cont IMCU monitoring and if pt improves throughout day will transfer to medical Hyperglycemia (initially hypoglycemia) clear liquids and ADAT s/p extubation monitor blood sugar will allow for hyperglycemia, goal <200 - monitor, currently stable VRE vanc switched to zyvox, cont with levaquin cont abx COPD requiring 4LNC to maintain baseline saturations - conor nebs/albuterol - repeat CXR this am - cont IS DM - will continue current NPH dose and monitor BS, allow for mild hyperglycemia goal <200 - continue to monitor - reglan BID prn Hypernatremia: -resolved Deconditioning: PTOT following, will need rehab vs snf. CM recs Code Status: Full VTE ppx: Heparin GI ppx: Protonix Lines/Tubes: L IJ CVC 11/14, bagley 11/14, ET tube 11/14, OG tube 11/14 Dipso: continue to monitor in ICU, prognosis remains guarded Nutrition: tube feeds Dispo: Stable. Pt continues to improve. Cont respiratory support and abx. Overall pt will need continued therapy and placement into SNF vs rehab facility for deconditioning. Consider transfer to medical later today. Addendum - Attending - Attending Attestation Date/Time: 11/25/18 5404 I personally evaluated the patient and discussed the management with Dr. Trejo I agree with the History, Examination, Assessment and Plan documented above with any addition or exceptions noted below. Patient with marked improvement should stable to transfer floor patient with chronic CO2 retainer need caution expectation Room air sat over 90 should be adequate regard supplemental oxygen titration to avoid blunting respiratory drive.
[2018-11-25] MEDS: Enoxaparin Sodium 40 MG/0.4 ML SYRINGE SC SCH (08:28)
[2018-11-25] MEDS: methylPREDNISolone Sod Succ 40 MG VIAL IVP SCH ×2 (08:28→20:46)
[2018-11-25] MEDS: NPH, Human Insulin Isophane 300 UNIT/3 ML VIAL SC SCH ×2 (08:29→20:47)
[2018-11-25] MEDS: Pantoprazole 40 MG VIAL IVP SCH (08:29)
--- NOTE | 2018-11-25 15:43 | PRG ---
DATE OF SERVICE: 11/25/2018 SERVICE: Pulmonary Medicine. INTERVAL HISTORY: The patient is doing great from respiratory standpoint. She is breathing comfortably. Denies any chest pain, fevers, or chills. Her appetite is picking back up, albeit slowly. She has no specific complaints and nursing reports no overnight events. PHYSICAL EXAMINATION: VITAL SIGNS: Afebrile, pulse 99, blood pressure 100/56, respirations 20, saturation 94% on 4 L nasal cannula. GENERAL: The patient is awake and alert, in no apparent distress. LUNGS: Decent air entry. There is a prolonged expiratory phase. Wheezing and crackles are both noted. HEART: Normal rate and regular. ABDOMEN: Soft, nontender, and nondistended. Bowel sounds are positive. MUSCULOSKELETAL: No cyanosis or clubbing. There is pitting in the bilateral lower extremities. NEUROLOGIC: Grossly nonfocal. LABORATORY DATA: WBC 12.0, hemoglobin 10.0, platelets 148,000. Creatinine 0.92 and gently downtrending. Bicarb 32, is downtrending. Potassium 3.5. Total bilirubin 2.9, is stable. Liver function studies are otherwise unremarkable. IMAGING DATA: Chest x-ray demonstrates infiltrates in the bilateral lung mayer. There is fluid in the right fissure. There is likely a left-sided pleural effusion present. There is a left IJ central venous catheter terminates in very good position. ASSESSMENT: 1. Acute on chronic hypoxic respiratory failure, improving. 2. Healthcare-associated pneumonia secondary to vancomycin-resistant Enterococcus. 3. Respiratory bronchiolitis-interstitial lung disease with acute exacerbation, resolving. 4. Pulmonary hypertension, multifactorial. 5. Septic shock, resolved. 6. Acute kidney injury, resolved. 7. Obstructive sleep apnea. DISCUSSION AND PLAN: We will continue on antibiotics, and nebulized medications. Potassium will be replaced. We will continue to diurese the patient down to euvolemia as tolerated. Pulmonary Critical Care will continue to follow along. Job ID: [id number]
[2018-11-25] MEDS ORDERED: Potassium Chloride 20 MEQ TAB PO SCH (15:45)
[2018-11-26] MEDS: Linezolid 600 MG in Premix Bag 1 BAG IVPB SCH ×2 (04:47→17:32)
[2018-11-26] MEDS: HumaLOG 300 UNITS/3 ML VIAL SC PRN ×3 (04:56→17:35)
--- NOTE | 2018-11-26 07:54 | PDOC.FM ---
- Subjective Subjective: NICHOLAS overnight. Pt reports LE edema, otherwise no complaints. - Objective MAR Reviewed: Yes Vital Signs & Weight: Vital Signs (12 hours) Temp Pulse Resp BP BP BP Pulse Ox 11/26/18 06:41 88 18 92 L 11/26/18 05:42 97.7 F 98 16 110/63 11/26/18 01:01 94 18 92 L 11/26/18 00:00 97.7 F 97 16 124/79 93 L 11/25/18 20:00 98.0 F 93 18 116/70 115/73 92 L Weight Admit Weight 84.246 kg Weight 86.228 kg Most Recent Monitor Data Heart Rate from ECG 107 NIBP 116/70 NIBP BP-Mean 85 Respiration from ECG 21 SpO2 86 I&O: 11/25/18 11/26/18 11/27/18 06:59 06:59 06:59 Intake Total 1272 1000 Output Total 675 300 Balance 597 700 Result Diagrams: 11/25/18 04:20 11/25/18 04:20 Phys Exam - Physical Examination Constitutional: NAD HEENT: PERRLA, sclera anicteric perioral cyanosis Neck: no nodes, no JVD Respiratory: no wheezing crackles b/l basis Cardiovascular: RRR, no significant murmur Gastrointestinal: soft, non-tender, no distention, positive bowel sounds Musculoskeletal: edema present Neurological: non-focal, moves all 4 limbs Skin: no rash Dx/Plan (1) Acute and chronic respiratory failure with hypoxia Code(s): J96.21 - ACUTE AND CHRONIC RESPIRATORY FAILURE WITH HYPOXIA Status: Acute (2) VRE (vancomycin resistant enterococcus) culture positive Code(s): Z22.39 - CARRIER OF OTHER SPECIFIED BACTERIAL DISEASES Status: Acute (3) UTI (urinary tract infection) due to Enterococcus Code(s): N39.0 - URINARY TRACT INFECTION, SITE NOT SPECIFIED; B95.2 - ENTEROCOCCUS THE CAUSE OF DISEASES CLASSIFIED ELSEWHERE Status: Acute (4) COPD (chronic obstructive pulmonary disease) Status: Chronic Qualifiers: (5) Pulmonary hypertension Code(s): I27.2 - OTHER SECONDARY PULMONARY HYPERTENSION * DO NOT USE * Status : Chronic (6) Elevated LFTs Code(s): R94.5 - ABNORMAL RESULTS OF LIVER FUNCTION STUDIES Status: Resolved (7) Diabetes mellitus Code(s): E11.9 - TYPE 2 DIABETES MELLITUS WITHOUT COMPLICATIONS Status: Acute - Plan Plan: Acute on Chronic hypoxic respiratory failure stable and continues to improve diurese today cont breathing tx VRE HAP cont zyvox COPD back to baseline O2 requirements - cont breathing tx DM -stable, pt eating well. cont to monitor increase insulin prn Hypernatremia: -resolved Deconditioning: PTOT following, will need rehab vs snf. CM recs sitting up in bed this am, cont pt ot appreciate cm recs Code Status: Full VTE ppx: Heparin GI ppx: Protonix Dispo: Stable. Pt continues to improve. Will continue respiratory support and add diuretic today. Monitor elytes with diuresis. Monitor Is/Os. COnt PTOT, will need snf Addendum - Attending - Attending Attestation Date/Time: 11/26/18 3543 I personally evaluated the patient and discussed the management with Dr. Trejo I agree with the History, Examination, Assessment and Plan documented above with any addition or exceptions noted below.
[2018-11-26] MEDS: Enoxaparin Sodium 40 MG/0.4 ML SYRINGE SC SCH (08:42)
[2018-11-26] MEDS: NPH, Human Insulin Isophane 300 UNIT/3 ML VIAL SC SCH ×2 (08:43→21:14)
[2018-11-26] MEDS: methylPREDNISolone Sod Succ 40 MG VIAL IVP SCH ×2 (08:43→21:13)
--- NOTE | 2018-11-26 12:58 | PRG ---
DATE OF SERVICE: 11/26/2018 SERVICE: Pulmonary Medicine. INTERVAL HISTORY: The patient is doing fine from respiratory standpoint. Breathing comfortably. Denies any current chest pain, nausea, or vomiting. Otherwise, there has been no change to her condition. Urine output is fairly concentrated. PHYSICAL EXAMINATION: VITAL SIGNS: Afebrile, pulse 104, blood pressure 99/65, respirations 24, and saturation 92% on 4 L nasal cannula. GENERAL: The patient is awake and alert, in no apparent distress. LUNGS: Decent air entry with dependent crackles. HEART: Normal rate and regular. ABDOMEN: Soft, nontender, and nondistended. Bowel sounds are positive. MUSCULOSKELETAL: No cyanosis or clubbing. There is 2+ pitting in bilateral lower extremities. NEUROLOGIC: Grossly nonfocal. LABORATORY DATA: WBC 12.0, hemoglobin 10.0, platelets 148,000 and roughly stable. Blood sugar ranges from 291 to 120. BAL is growing VRE. Enterococcus is also growing in the urine. These are different organisms. ASSESSMENT: 1. Acute on chronic hypoxic respiratory failure, resolving. 2. Healthcare-associated pneumonia secondary to vancomycin-resistant enterococci. 3. Respiratory bronchiolitis interstitial lung disease with acute exacerbation. 4. Pulmonary hypertension, multifactorial. 5. Septic shock, resolved. 6. Obstructive sleep apnea. DISCUSSION AND PLAN: We will repeat laboratories tomorrow morning. We will diurese her as tolerated through time. Pulmonary/Critical Care will continue to follow along. Dr. Hatch will resume care in the morning. Job ID: [id number]
[2018-11-26 14:53] LABS: Actual Bicarbonate (HCO3a) 27.6 mEq/L (22-28); Base Excess (BEa) 4.1 mEq/L (-2.0 to +3.0); CO2 Tension 37.4 mmHg (35.0-45.0); Calcium, Ionized 1.12 mmol/L (1.12-1.30); Carboxyhemoglobin (COHb) 2.4 gm% (0.0-3.0); Hemoglobin (Hb) 10.9 g/dL (12.0-16.0); Potassium - ABG Lab 3.14 mmol/L (3.70-5.30); pH, Arterial 7.49 (7.35-7.45)
[2018-11-26 15:01] LABS: O2 Tension (PaO2) 48.7 mmHg (80.0-100.0); Puncture Site LRA
--- NOTE | 2018-11-26 16:49 | RAD ---
FPortable chest: HISTORY: Shortness of breath COMPARISON: 11/24/2018 FINDINGS: Cardiomegaly. Mild vascular engorgement. Linear opacities in both lungs again noted consist ent with atelectasis and stranding. Left basilar atelectasis and/or infiltrate appears unchanged from prior exam. Central line is unchanged. Small effusions cannot be excluded. IMPRESSION: Stable chest findings
[2018-11-26] MEDS: Bumetanide 1 MG TAB PO SCH (18:21)
[2018-11-27] MEDS: Linezolid 600 MG in Premix Bag 1 BAG IVPB SCH ×2 (05:08→16:57)
[2018-11-27 05:41] LABS: Anion Gap 14 mmol/L (10-20); BUN (Urea Nitrogen) 27 mg/dL (9.8-20.1); Calc. Creatinine Clearance 98 mL/min (70-130); Carbon Dioxide 30 mmol/L (22-29); Chloride 96 mmol/L (98-107); Estimated GFR-MDRD 66; Glucose 149 mg/dL (70-105); Magnesium 1.9 mg/dL (1.6-2.6); Potassium 3.2 mmol/L (3.5-5.1); Sodium 137 mmol/L (136-145)
--- NOTE | 2018-11-27 08:39 | PDOC.FM ---
- Subjective Subjective: This moring patient states she is not feeling any shortness of breath. She has a normal appetite, denies N/V/D. She is able to walk to the restroom but has not done much beyond this. - Objective Vital Signs & Weight: Vital Signs (12 hours) Temp Pulse Resp BP BP Pulse Ox 11/27/18 06:54 101 H 18 91 L 11/27/18 04:00 97.1 F L 101 H 18 94/58 L 94 L 11/27/18 01:50 97.5 F L 109 H 19 115/74 87 L 11/27/18 00:52 106 H 18 93 L 11/27/18 00:00 97.6 F 103 H 20 95/58 L 85 L 11/26/18 20:52 98 F 101 H 20 100/66 79 L Weight Admit Weight 84.246 kg Weight 86.228 kg Most Recent Monitor Data Heart Rate from ECG 107 NIBP 116/70 NIBP BP-Mean 85 Respiration from ECG 21 SpO2 86 I&O: 11/26/18 11/27/18 11/28/18 06:59 06:59 06:59 Intake Total 1000 1900 Output Total 300 1100 Balance 700 800 Result Diagrams: 11/25/18 04:20 11/27/18 Unknown Phys Exam - Physical Examination Constitutional: NAD HEENT: moist MMs, sclera anicteric Respiratory: no wheezing, clear to auscultation bilateral distant lung sounds Cardiovascular: RRR, no significant murmur, no rub Gastrointestinal: soft, non-tender, no distention, positive bowel sounds Musculoskeletal: pulses present +2 edema bilaterally at the ankles Neurological: non-focal, moves all 4 limbs Lymphatic: no nodes Psychiatric: normal affect, A&O x 3 Skin: no rash, cap refill <2 seconds Dx/Plan (1) Diabetes mellitus Code(s): E11.9 - TYPE 2 DIABETES MELLITUS WITHOUT COMPLICATIONS Status: Acute (2) UTI (urinary tract infection) due to Enterococcus Code(s): N39.0 - URINARY TRACT INFECTION, SITE NOT SPECIFIED; B95.2 - ENTEROCOCCUS THE CAUSE OF DISEASES CLASSIFIED ELSEWHERE Status: Acute (3) Acute and chronic respiratory failure with hypoxia Code(s): J96.21 - ACUTE AND CHRONIC RESPIRATORY FAILURE WITH HYPOXIA Status: Acute (4) COPD with acute exacerbation Code(s): J44.1 - CHRONIC OBSTRUCTIVE PULMONARY DISEASE W (ACUTE) EXACERBATION Status: Acute (5) COPD (chronic obstructive pulmonary disease) Status: Chronic Qualifiers: - Plan Plan: Acute on Chronic hypoxic respiratory failure cont breathing tx patient at baseline home o2, 3L needs persistent rehanb VRE HAP cont zyvox COPD back to baseline O2 requirements - cont breathing tx DM -stable, pt eating well. cont to monitor increase insulin prn, well controlled now Hypernatremia: -resolved Deconditioning: PTOT following, will need rehab vs snf. CM recs sitting up in bed this am, cont pt ot appreciate cm recs Tobacco Abuse - discussed cessation Code Status: Full VTE ppx: Heparin GI ppx: Protonix Dispo:stable, at baseline home o2 requirements, pending snf placement Addendum - Attending - Attending Attestation Date/Time: 11/27/18 3907 I personally evaluated the patient and discussed the management with Dr. Woodruff. I agree with the History, Examination, Assessment and Plan documented above with any addition or exceptions noted below. The patient is significantly deconditioned. She is waiting on inpt rehab placement. Will clarify stop date of antibiotics with Dr. Hernandez. Pt has increased lower extremity edema. Restarting bumex. We did clarify that pt does not have an allergic reaction to lasix, she states it simply doesn't work.
[2018-11-27] MEDS: Enoxaparin Sodium 40 MG/0.4 ML SYRINGE SC SCH (09:13)
[2018-11-27] MEDS: NPH, Human Insulin Isophane 300 UNIT/3 ML VIAL SC SCH ×2 (09:14→20:24)
[2018-11-27] MEDS: methylPREDNISolone Sod Succ 40 MG VIAL IVP SCH (09:14)
[2018-11-27 14:25] VITALS: BMI 31.6
--- NOTE | 2018-11-27 15:51 | PRG ---
DATE OF SERVICE: 11/27/2018 SUBJECTIVE: Ms. Valdovinos is stable over the weekend. She is still weak, that is her only complaint. She is anxious when she tries to move around. She does not want to go to a halfway for skilled care and actually may not qualify to go. OBJECTIVE: VITAL SIGNS: She is afebrile. Heart rate is 100, respiratory rate is 30 if she moves around and 20 if she is still, oximetry is 88% to 93% on 4 L cannula, blood pressure 116/60. LUNGS: Distant, clear. HEART: Regular rhythm. ABDOMEN: Soft. EXTREMITIES: Without asymmetry. DIAGNOSTIC DATA: Chest x-ray was done yesterday, is unchanged. IMPRESSION: 1. Respiratory failure. 2. 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 3. Steroid dependence. 4. Status post bronchoscopy for mucus plugging. 5. Possible pneumonia. 6. Vancomycin-resistant Enterococcus in bronch washing, but not in her urine culture. PLAN: Continue supportive care. Placement is the big issue, and unfortunately I do not think she will do any type of exercise when she goes home. Her has been escorted out of the hospital at least once because he is in a manic phase, so he will not be very helpful either. This is a difficult situation. Unfortunately, based on my past experience, she will start smoking again as soon as she is home. Job ID: [id number]
[2018-11-27] MEDS: Bumetanide 1 MG TAB PO SCH (16:56)
[2018-11-28] MEDS ORDERED: Melatonin 3 MG TAB PO SCH (02:30)
[2018-11-28] MEDS: Linezolid 600 MG in Premix Bag 1 BAG IVPB SCH ×2 (03:14→17:00)
[2018-11-28 06:54] LABS: Anion Gap 15 mmol/L (10-20); BUN (Urea Nitrogen) 25 mg/dL (9.8-20.1); Calc. Creatinine Clearance 104 mL/min (70-130); Calcium 8.8 mg/dL (7.8-10.44); Carbon Dioxide 27 mmol/L (22-29); Chloride 97 mmol/L (98-107); Estimated GFR-MDRD 71; Glucose 109 mg/dL (70-105); Sodium 136 mmol/L (136-145)
[2018-11-28 06:59] LABS: Potassium 2.9 mmol/L (3.5-5.1)
--- NOTE | 2018-11-28 07:06 | PDOC.FM ---
- Subjective Subjective: This morning patient is short of breath with conversation, stable from yesterday. She states she is having some pain in her feet from the swelling. She denies any other pain. Denies cp or palpitations. She is still unable to transfer from bed to commode without assistance. Patient has used up her skilled care days, therefore she does not qualify for rehab. Discussed NH with patient and patient understands this is better option than going home. Will work towards placement. - Objective Vital Signs & Weight: Vital Signs (12 hours) Pulse Resp Pulse Ox 11/28/18 06:40 105 H 18 96 11/27/18 22:11 110 H 18 94 L 11/27/18 20:00 92 L Weight Admit Weight 84.246 kg Weight 86.228 kg Most Recent Monitor Data Heart Rate from ECG 107 NIBP 116/70 NIBP BP-Mean 85 Respiration from ECG 21 SpO2 86 I&O: 11/27/18 11/28/18 11/29/18 06:59 06:59 06:59 Intake Total 1900 1200 Output Total 1100 Balance 800 1200 Result Diagrams: 11/25/18 04:20 11/28/18 06:29 Phys Exam - Physical Examination Constitutional: NAD HEENT: moist MMs, sclera anicteric Respiratory: no wheezing, clear to auscultation bilateral short of breath on conversation Cardiovascular: RRR, no significant murmur, no rub Gastrointestinal: soft, non-tender, no distention, positive bowel sounds Musculoskeletal: pulses present +2 edema bilaterally Neurological: non-focal, moves all 4 limbs Psychiatric: normal affect, A&O x 3 Skin: no rash, cap refill <2 seconds Dx/Plan (1) Diabetes mellitus Code(s): E11.9 - TYPE 2 DIABETES MELLITUS WITHOUT COMPLICATIONS Status: Acute (2) UTI (urinary tract infection) due to Enterococcus Code(s): N39.0 - URINARY TRACT INFECTION, SITE NOT SPECIFIED; B95.2 - ENTEROCOCCUS THE CAUSE OF DISEASES CLASSIFIED ELSEWHERE Status: Acute (3) Acute and chronic respiratory failure with hypoxia Code(s): J96.21 - ACUTE AND CHRONIC RESPIRATORY FAILURE WITH HYPOXIA Status: Acute (4) COPD with acute exacerbation Code(s): J44.1 - CHRONIC OBSTRUCTIVE PULMONARY DISEASE W (ACUTE) EXACERBATION Status: Acute (5) COPD (chronic obstructive pulmonary disease) Status: Chronic Qualifiers: - Plan Plan: Acute on Chronic hypoxic respiratory failure cont breathing tx patient at baseline home o2, 3L needs rehab, very deconditioned VRE HAP cont zyvox, will discuss end date w/ Dr. Hernandez COPD back to baseline O2 requirements cont breathing tx transitioned to oral prednisone DM -stable, pt eating well. cont to monitor increase insulin prn, well controlled now Hypokalemia - 2.9 this AM, replete Hypernatremia: -resolved Deconditioning: PTOT following, will need rehab vs snf. CM recs sitting up in bed this am, cont pt ot appreciate cm recs Tobacco Abuse - discussed cessation Code Status: Full VTE ppx: Heparin GI ppx: Protonix Dispo:stable, at baseline home o2 requirements, pending NH placement Addendum - Attending - Attending Attestation Date/Time: 11/28/18 8230 I personally evaluated the patient and discussed the management with Dr. Woodruff. I agree with the History, Examination, Assessment and Plan documented above with any addition or exceptions noted below. The patient is hypokalemic. Replacing with IV and po potassium. She is severely deconditioned and would benefit from NH skilled placement as insurance won't cover inpt rehab.
[2018-11-28] MEDS ORDERED: Potassium Chloride 40 MEQ in Premix Bag 1 BAG IVPB SCH (08:30)
[2018-11-28] MEDS ORDERED: Potassium Chloride 40 MEQ in Sodium Chloride 0.9% 250 ML 250 ML IV SCH (09:00)
[2018-11-28] MEDS: Potassium Chloride 20 MEQ TAB PO SCH ×2 (09:38→17:00)
[2018-11-28] MEDS: Bumetanide 1 MG TAB PO SCH ×2 (09:38→17:00)
[2018-11-28] MEDS: predniSONE 20 MG TAB PO SCH (09:39)
[2018-11-28] MEDS: Enoxaparin Sodium 40 MG/0.4 ML SYRINGE SC SCH (09:39)
[2018-11-28] MEDS: NPH, Human Insulin Isophane 300 UNIT/3 ML VIAL SC SCH ×2 (09:40→21:58)
--- NOTE | 2018-11-28 16:27 | PRG ---
DATE OF SERVICE: 11/28/2018 SUBJECTIVE: Chyna Valdovinos is no better than she was yesterday. Any exertion at all. She is out of breath. She finally realized that she cannot go home. OBJECTIVE: VITAL SIGNS: She is afebrile, heart rate is in the 90s, respiratory rate is 12, oximetry is 90 to 92 on 4 L, blood pressure 100/62. She desaturates quickly with any movement. LUNGS: Distant and clear. HEART: Regular rhythm. ABDOMEN: Soft. EXTREMITIES: With 2+ edema. Intake and outputs, negative 25. LABORATORY DATA: Sodium 136, potassium 2.9, chloride 97, bicarb 27, BUN 25, creatinine 0.84. IMPRESSION: 1. Respiratory failure, status post mechanical ventilation for several days for chronic obstructive pulmonary disease exacerbation. 2. Ongoing tobacco use until this admission. 3. Biopsy-proven respiratory bronchiolitis. 4. Extreme deconditioning. 5. Chronic respiratory failure with hypoxia with acute decompensation. She also has hypercarbia. PLAN: I discussed re-intubation should she deteriorate. She very quickly told me Never Again. She is steroid dependent. She had VRE isolated from her bronchoscopy. She should have had adequate antimicrobial therapy for that at this point. Placement is the only issue at this point in time. Unfortunately, her with his mental illness probably will not do well when she succumb to this. I will be surprised if she makes it through this year. Job ID: [id number] MTDD
[2018-11-28] MEDS ORDERED: Nortriptyline HCl 25 MG CAP ONE (16:31)
[2018-11-28] MEDS: HumaLOG 300 UNITS/3 ML VIAL SC PRN (17:09)
[2018-11-29] MEDS: Linezolid 600 MG in Premix Bag 1 BAG IVPB SCH (03:35)
[2018-11-29] MEDS: Potassium Chloride 20 MEQ TAB PO SCH ×2 (08:00→16:34)
[2018-11-29] MEDS: predniSONE 20 MG TAB PO SCH (08:01)
[2018-11-29] MEDS: Enoxaparin Sodium 40 MG/0.4 ML SYRINGE SC SCH (08:04)
[2018-11-29] MEDS: Bumetanide 1 MG TAB PO SCH ×2 (08:04→16:34)
[2018-11-29] MEDS: NPH, Human Insulin Isophane 300 UNIT/3 ML VIAL SC SCH ×2 (08:05→21:26)
[2018-11-29 08:11] LABS: Hemoglobin 9.1 g/dL (12.0-16.0); Mean Corpuscular HGB CONC 29.7 g/dL (32.0-36.0); Mean Corpuscular Hemoglobin 22.1 pg (27.0-31.0); Mean Corpuscular Volume 74.5 fL (78.0-98.0); Platelet Count 115 thou/uL (130-400); RBC Distribution Width 21.6 % (11.5-14.5); Red Blood Cell (RBC) Count 4.13 mill/uL (4.20-5.40); White Blood Cell (WBC) Count 10.9 thou/uL (4.8-10.8)
[2018-11-29] MEDS ORDERED: Furosemide 40 MG/4 ML VIAL SLOW IVP SCH (08:15)
[2018-11-29 08:26] LABS: Anion Gap 14 mmol/L (10-20); BUN (Urea Nitrogen) 22 mg/dL (9.8-20.1); Calc. Creatinine Clearance 117 mL/min (70-130); Calcium 8.8 mg/dL (7.8-10.44); Carbon Dioxide 27 mmol/L (22-29); Chloride 98 mmol/L (98-107); Estimated GFR-MDRD 81; Glucose 92 mg/dL (70-105); Potassium 3.1 mmol/L (3.5-5.1); Sodium 136 mmol/L (136-145)
--- NOTE | 2018-11-29 09:01 | PDOC.FM ---
- Subjective Subjective: This morning patient states she was able to stand up with the assistance of PT yesterday. She denies cough, CP. She has normal appetite w/o N/V/D. She discussed goals of care with Dr. Hatch yesterday and confirms that she wants to be DNR/DNI, she does not want to go back on the vent. - Objective Vital Signs & Weight: Vital Signs (12 hours) Temp Pulse Resp BP Pulse Ox 11/29/18 06:36 101 H 18 11/29/18 04:00 98.1 F 109 H 20 96/61 95 11/29/18 00:00 97.4 F L 83 18 108/68 93 L 11/28/18 22:49 107 H 18 88 L Weight Admit Weight 84.246 kg Weight 86.228 kg Most Recent Monitor Data Heart Rate from ECG 107 NIBP 116/70 NIBP BP-Mean 85 Respiration from ECG 21 SpO2 86 I&O: 11/28/18 11/29/18 11/30/18 06:59 06:59 06:59 Intake Total 1500 2522 Output Total 1525 1000 Balance -25 1522 Result Diagrams: 11/29/18 07:51 11/29/18 07:51 Phys Exam - Physical Examination Constitutional: NAD HEENT: moist MMs, sclera anicteric mild exp wheeze Cardiovascular: RRR, no significant murmur Gastrointestinal: soft, non-tender, no distention, positive bowel sounds +3 pitting edema, has a an open wound on r foot Neurological: non-focal, moves all 4 limbs Psychiatric: normal affect, A&O x 3 Skin: no rash, cap refill <2 seconds Dx/Plan (1) Diabetes mellitus Code(s): E11.9 - TYPE 2 DIABETES MELLITUS WITHOUT COMPLICATIONS Status: Acute (2) UTI (urinary tract infection) due to Enterococcus Code(s): N39.0 - URINARY TRACT INFECTION, SITE NOT SPECIFIED; B95.2 - ENTEROCOCCUS THE CAUSE OF DISEASES CLASSIFIED ELSEWHERE Status: Acute (3) Acute and chronic respiratory failure with hypoxia Code(s): J96.21 - ACUTE AND CHRONIC RESPIRATORY FAILURE WITH HYPOXIA Status: Acute (4) COPD with acute exacerbation Code(s): J44.1 - CHRONIC OBSTRUCTIVE PULMONARY DISEASE W (ACUTE) EXACERBATION Status: Acute (5) COPD (chronic obstructive pulmonary disease) Status: Chronic Qualifiers: - Plan Plan: Volume overload - fluid restriction 1800ml - added lasix, spironolactone - on bumex Acute on Chronic hypoxic respiratory failure- resolved cont breathing tx patient at baseline home o2, 3L needs rehab, very deconditioned VRE- resolved HAP s/p 10 days of zyvox, stopped today COPD back to baseline O2 requirements cont breathing tx transitioned to oral prednisone DM -stable, pt eating well. cont to monitor increase insulin prn, well controlled now Hypokalemia - 2.9 this AM, replete Hypernatremia: -resolved Deconditioning: PTOT following, will need rehab vs snf. CM recs sitting up in bed this am, cont pt ot appreciate cm recs Tobacco Abuse - discussed cessation Code Status: DNR/DNI VTE ppx: Heparin GI ppx: Protonix Dispo:stable, at baseline home o2 requirements, pending NH placement Addendum - Attending - Attending Attestation Date/Time: 11/29/18 6326 I personally evaluated the patient and discussed the management with Dr. Woodruff. I agree with the History, Examination, Assessment and Plan documented above with any addition or exceptions noted below. Pt still has significant lower extremity edema. Will increase bumex and add metolazone. Replacing potassium for hypokalemia. Awaiting placement.
[2018-11-29] MEDS ORDERED: Spironolactone 25 MG TAB PO SCH (09:15)
[2018-11-29] MEDS ORDERED: Bumetanide 1 MG TAB PO SCH ×2 (09:51→11:00)
--- NOTE | 2018-11-29 09:52 | PDOC.EVN ---
Event Note - Event Note Event Note: increased dose of bumex to 2mg BID added metolazone 5mg to be given 30 min before bumex
[2018-11-29] MEDS ORDERED: Potassium Chloride 40 MEQ in Premix Bag 1 BAG IVPB SCH (10:30)
[2018-11-29] MEDS: Potassium Chloride 20 MEQ in Premix Bag 1 BAG IVPB SCH ×2 (13:07→15:35)
[2018-11-29] MEDS: Metolazone 5 MG TAB PO SCH (15:40)
[2018-11-29] MEDS: HumaLOG 300 UNITS/3 ML VIAL SC PRN (15:40)
--- NOTE | 2018-11-29 19:52 | PRG ---
DATE OF SERVICE: 11/29/2018 Ms. Valdovinos remains about the same. She has significant lower extremity edema. Diuretic orders were written today. The problem has been in the past and this admission is she is not very willing to stick to fluid restriction or elevate her legs. OBJECTIVE: VITAL SIGNS: She is afebrile, heart rate in the 90s, respiratory rate 15, oximetry is 95% on 4 L. LUNGS: Free of wheezes. HEART: Regular rhythm. ABDOMEN: Soft. She has significantly elevated right heart pressures I am sure, so her acid-base status will need to be monitored for development of a metabolic alkalosis with diuretics. Her bicarb today is 27, so we are good for now. She will need to be watched. Lab work is otherwise stable. Hemoglobin is 9.1, platelets 115, and white count 10.9. Thus, case resource manager is still working on placement. Job ID: [id number]
--- NOTE | 2018-11-30 07:55 | RAD ---
FExam: Chest one view HISTORY:Shortness of breath Comparison: 11/26/2018 FINDINGS: Cardiac silhouette:Enlarged Pulmonary vessels: Enlarged Costophrenic angles: Minimal blunting of the left costophrenic angle LUNGS: Persistent linear opacities throughout the lung parenchyma. Partial obscuration right heart brunilda rder. Pneumothorax: None Osseous abnormalities: None IMPRESSION: 1. Presumed chronic changes of the lung parenchyma. Superimposed edema or infiltrate cannot be exclud ed. Continued surveillance is recommended
[2018-11-30 08:26] LABS: Hemoglobin 8.9 g/dL (12.0-16.0); Mean Corpuscular HGB CONC 29.6 g/dL (32.0-36.0); Mean Corpuscular Hemoglobin 21.4 pg (27.0-31.0); Mean Corpuscular Volume 72.5 fL (78.0-98.0); Mean Platelet Volume 11.2 fL (7.4-10.4); Platelet Count 98 thou/uL (130-400); RBC Distribution Width 21.9 % (11.5-14.5); Red Blood Cell (RBC) Count 4.16 mill/uL (4.20-5.40); White Blood Cell (WBC) Count 10.7 thou/uL (4.8-10.8)
[2018-11-30] MEDS: Potassium Chloride 20 MEQ TAB PO SCH ×2 (08:42→16:51)
[2018-11-30] MEDS: Bumetanide 1 MG TAB PO SCH ×2 (08:42→16:51)
[2018-11-30] MEDS: predniSONE 20 MG TAB PO SCH (08:43)
[2018-11-30] MEDS: Spironolactone 25 MG TAB PO SCH (08:44)
[2018-11-30] MEDS: NPH, Human Insulin Isophane 300 UNIT/3 ML VIAL SC SCH ×2 (08:45→20:28)
[2018-11-30] MEDS: Enoxaparin Sodium 40 MG/0.4 ML SYRINGE SC SCH (08:47)
[2018-11-30 08:59] LABS: Anion Gap 14 mmol/L (10-20); BUN (Urea Nitrogen) 24 mg/dL (9.8-20.1); Calc. Creatinine Clearance 111 mL/min (70-130); Calcium 9.2 mg/dL (7.8-10.44); Carbon Dioxide 35 mmol/L (22-29); Chloride 93 mmol/L (98-107); Estimated GFR-MDRD 76; Glucose 76 mg/dL (70-105); Sodium 139 mmol/L (136-145)
--- NOTE | 2018-11-30 09:02 | PDOC.FM ---
- Subjective Subjective: This morning the patient states her breathing is a little worse, mild cough overnight. She states her legs feel better than yesterday. Sitting up on side of the bed, reminded her she needs legs elevated. Denies N/V/D. - Objective Vital Signs & Weight: Vital Signs (12 hours) Temp Pulse Resp BP BP Pulse Ox 11/30/18 07:59 97.8 F 104 H 16 104/64 96 11/30/18 07:16 102 H 20 94 L 11/30/18 03:44 106 H 18 95 11/29/18 23:48 107 H 18 95 11/29/18 21:12 97.4 F L 108 H 19 102/62 95 Weight Admit Weight 84.246 kg Weight 86.228 kg Most Recent Monitor Data Heart Rate from ECG 107 NIBP 116/70 NIBP BP-Mean 85 Respiration from ECG 21 SpO2 86 I&O: 11/29/18 11/30/18 12/01/18 06:59 06:59 06:59 Intake Total 2522 2100 Output Total 1000 7225 Balance 1522 -5125 Result Diagrams: 11/30/18 07:14 11/30/18 15:48 Phys Exam - Physical Examination Constitutional: NAD HEENT: moist MMs, sclera anicteric exp wheezes Cardiovascular: RRR, no significant murmur, no rub Gastrointestinal: soft, non-tender, no distention, positive bowel sounds Musculoskeletal: pulses present +3 edema bilaterally Neurological: non-focal, normal sensation, moves all 4 limbs Psychiatric: normal affect, A&O x 3 Skin: no rash, cap refill <2 seconds Dx/Plan (1) Diabetes mellitus Code(s): E11.9 - TYPE 2 DIABETES MELLITUS WITHOUT COMPLICATIONS Status: Acute (2) UTI (urinary tract infection) due to Enterococcus Code(s): N39.0 - URINARY TRACT INFECTION, SITE NOT SPECIFIED; B95.2 - ENTEROCOCCUS THE CAUSE OF DISEASES CLASSIFIED ELSEWHERE Status: Acute (3) Acute and chronic respiratory failure with hypoxia Code(s): J96.21 - ACUTE AND CHRONIC RESPIRATORY FAILURE WITH HYPOXIA Status: Acute (4) COPD with acute exacerbation Code(s): J44.1 - CHRONIC OBSTRUCTIVE PULMONARY DISEASE W (ACUTE) EXACERBATION Status: Acute (5) COPD (chronic obstructive pulmonary disease) Status: Chronic Qualifiers: - Plan Plan: Volume overload - fluid restriction 1800ml - bumex, metolazone, spironolactone - 5L off yesterday Acute on Chronic hypoxic respiratory failure- resolved cont breathing tx, increased to q4 hour nebs this AM up to 6L, will follow VRE- resolved HAP s/p 10 days of zyvox, stopped today COPD back to baseline O2 requirements cont breathing tx transitioned to oral prednisone DM -stable, pt eating well. cont to monitor increase insulin prn, well controlled now Hypokalemia - replete Hypernatremia: -resolved Deconditioning: PTOT following, will need rehab vs snf. CM recs sitting up in bed this am, cont pt ot appreciate cm recs Tobacco Abuse - discussed cessation Code Status: DNR/DNI VTE ppx: Heparin GI ppx: Protonix Dispo:working on placement Addendum - Attending - Attending Attestation Date/Time: 11/30/181947 I personally evaluated the patient and discussed the management with Dr. Woodruff. I agree with the History, Examination, Assessment and Plan documented above with any addition or exceptions noted below. The patient diuresed 5L yesterday. She still needs additional diuresis. Will get CXR today. She remains on oxygen. Case mgmt is helping with placement as pt is not strong enough to go home.
[2018-11-30 09:15] LABS: Potassium 2.5 mmol/L (3.5-5.1)
[2018-11-30] MEDS ORDERED: Magnesium Chloride 64 MG TAB PO SCH ×2 (09:26→10:30)
[2018-11-30] MEDS ORDERED: Potassium Chloride 40 MEQ in Premix Bag 1 BAG IVPB SCH (09:30)
[2018-11-30] MEDS ORDERED: Spironolactone 25 MG TAB PO SCH (10:00)
[2018-11-30] MEDS: Potassium Chloride 20 MEQ in Premix Bag 1 BAG IVPB SCH ×4 (10:51→16:51)
[2018-11-30 16:30] LABS: Anion Gap 16 mmol/L (10-20); BUN (Urea Nitrogen) 26 mg/dL (9.8-20.1); Calc. Creatinine Clearance 98 mL/min (70-130); Calcium 9.2 mg/dL (7.8-10.44); Carbon Dioxide 33 mmol/L (22-29); Chloride 93 mmol/L (98-107); Estimated GFR-MDRD 66; Glucose 166 mg/dL (70-105); Potassium 3.6 mmol/L (3.5-5.1); Sodium 138 mmol/L (136-145)
[2018-11-30] MEDS: Metolazone 5 MG TAB PO SCH (16:50)
[2018-11-30] MEDS: HumaLOG 300 UNITS/3 ML VIAL SC PRN (16:57)
[2018-11-30] MEDS: Magnesium Chloride 64 MG TAB PO SCH (20:28)
[2018-11-30] MEDS: Melatonin 3 MG TAB PO PRN (23:39)
[2018-12-01 07:01] LABS: Anion Gap 19 mmol/L (10-20); BUN (Urea Nitrogen) 30 mg/dL (9.8-20.1); Calc. Creatinine Clearance 99 mL/min (70-130); Calcium 9.4 mg/dL (7.8-10.44); Carbon Dioxide 31 mmol/L (22-29); Chloride 90 mmol/L (98-107); Estimated GFR-MDRD 67; Glucose 91 mg/dL (70-105); Potassium 3.5 mmol/L (3.5-5.1); Sodium 136 mmol/L (136-145)
--- NOTE | 2018-12-01 07:20 | PDOC.FM ---
Addendum entered and electronically signed by Dario Woodruff MD 12/01/18 10:30: linezolid was given 10/30-11/29 Original Note: - Subjective Subjective: This morning patient states her breathing feels better, she is lying in the bed this AM. I/Os shows 8L out yesterday. Patient denies feeling weak or lightheaded. Patient requests her fluid restriction to be increased. No N/V/D, no fevers, chills, or sweats. - Objective Vital Signs & Weight: Vital Signs (12 hours) Temp Pulse Resp BP Pulse Ox 11/30/18 23:29 113 H 24 H 95 11/30/18 20:00 97.7 F 109 H 18 96/61 96 Weight Admit Weight 84.246 kg Weight 86.228 kg Most Recent Monitor Data Heart Rate from ECG 107 NIBP 116/70 NIBP BP-Mean 85 Respiration from ECG 21 SpO2 86 I&O: 11/30/18 12/01/18 12/02/18 06:59 06:59 06:59 Intake Total 2100 2100 Output Total 7225 50233 Balance -5125 -7900 Result Diagrams: 11/30/18 07:14 12/01/18 06:20 Phys Exam - Physical Examination Constitutional: NAD HEENT: moist MMs, sclera anicteric mild expiratory wheezes, improved from yesterday irregularly irregular rhythm Gastrointestinal: soft, non-tender, no distention, positive bowel sounds Musculoskeletal: pulses present +2 edema bilterally, improved from yesterday Neurological: non-focal, moves all 4 limbs Psychiatric: normal affect, A&O x 3 Skin: no rash, cap refill <2 seconds Dx/Plan (1) Diabetes mellitus Code(s): E11.9 - TYPE 2 DIABETES MELLITUS WITHOUT COMPLICATIONS Status: Acute (2) UTI (urinary tract infection) due to Enterococcus Code(s): N39.0 - URINARY TRACT INFECTION, SITE NOT SPECIFIED; B95.2 - ENTEROCOCCUS THE CAUSE OF DISEASES CLASSIFIED ELSEWHERE Status: Acute (3) Acute and chronic respiratory failure with hypoxia Code(s): J96.21 - ACUTE AND CHRONIC RESPIRATORY FAILURE WITH HYPOXIA Status: Acute (4) COPD with acute exacerbation Code(s): J44.1 - CHRONIC OBSTRUCTIVE PULMONARY DISEASE W (ACUTE) EXACERBATION Status: Acute (5) COPD (chronic obstructive pulmonary disease) Status: Chronic Qualifiers: - Plan Plan: Volume overload - fluid restriction increased to 2400ml - -8L yesterday - bumex, metolazone, spironolactone Acute on Chronic hypoxic respiratory failure- resolved cont breathing tx, increased to q4 hour nebs this AM up to 6L, will follow Irregularly irregular rhythm - check EKG, consider debra agent VRE- resolved HAP s/p 10 days of zyvox, stopped today COPD back to baseline O2 requirements, 3L at home cont breathing tx transitioned to oral prednisone DM -stable, pt eating well. cont to monitor increase insulin prn, well controlled now Hypokalemia - replete Hypernatremia: -resolved Deconditioning: PTOT following cont pt ot appreciate cm recs Tobacco Abuse - discussed cessation Code Status: DNR/DNI VTE ppx: Heparin GI ppx: Protonix Dispo:working on placement at [facility]2 insurance difficulties, used of inpt days so cant go to rehab Addendum - Attending - Attending Attestation Date/Time: 12/01/18 1043 I personally evaluated the patient and discussed the management with Dr. Woodruff. I agree with the History, Examination, Assessment and Plan documented above with any addition or exceptions noted below. The patient had good diuresis yesterday and lower extremity edema is slowly improving. We are still working on placement.
[2018-12-01] MEDS: predniSONE 20 MG TAB PO SCH (08:02)
[2018-12-01] MEDS: Bumetanide 1 MG TAB PO SCH ×2 (08:02→17:27)
[2018-12-01] MEDS: Spironolactone 25 MG TAB PO SCH (08:03)
[2018-12-01] MEDS: Potassium Chloride 20 MEQ TAB PO SCH ×2 (08:04→17:27)
[2018-12-01] MEDS: Magnesium Chloride 64 MG TAB PO SCH ×2 (08:05→20:34)
[2018-12-01] MEDS: Enoxaparin Sodium 40 MG/0.4 ML SYRINGE SC SCH ×2 (08:05→08:17)
[2018-12-01] MEDS: NPH, Human Insulin Isophane 300 UNIT/3 ML VIAL SC SCH ×2 (08:07→21:31)
--- NOTE | 2018-12-01 11:13 | PDOC.EVN ---
Event Note - Event Note Event Note: Will stop metolazone 2/2 aggressive diuresis last 2 days noted mild pink tinged urine, will remove catheter as she has had it for some time will order UA, cx by straight cath for later today patient does get tired with getting up to the commode may need to replace bagley later
--- NOTE | 2018-12-01 14:39 | EKG ---
Test Reason : Blood Pressure : / mmHG Vent. Rate : 094 BPM Atrial Rate : 094 BPM P-R Int : 146 ms QRS Dur : 128 ms QT Int : 384 ms P-R-T Axes : 063 156 000 degrees QTc Int : 480 ms Sinus rhythm with marked sinus arrhythmia with occasional Premature ventricular complexes Right bundle branch block T wave abnormality, consider inferior ischemia Abnormal ECG When compared with ECG of 14-NOV-2018 16:48, Premature ventricular complexes are now Present Confirmed by WESLEY HARP, SInder ([id number]) on 12/01/2018 2:39:33 PM Referred By: MARIANELA Confirmed By:DR. Armando OLSON MD
[2018-12-01 14:49] LABS: Bilirubin Negative (Negative); Blood, Urine Small (Negative); Clarity CLEAR (Clear); Glucose, Urine (Dipstick) Negative (Negative); Leukocyte Trace (Negative); Nitrite Negative (Negative); Protein, Urine (Dipstick) Negative (Neg-Trace); Specific Gravity, Urine 1.006 (1.002-1.036); Urobilinogen 0.2 mg/dL (0.2-1.0)
[2018-12-01 14:51] LABS: Bacteria/HPF None Seen HPF (None Seen); Hyaline Casts/LPF 0-3 HYALINE CAST LPF (0-3 Hyaline); Pathc Cast-AUWi Flag 0.13 (0-2.49); Squamous Epithelial None Seen HPF (0-3); WBC/HPF 0-3 HPF (0-3)
[2018-12-01 14:54] LABS: Urine Culture Reflex Yes Yes
--- NOTE | 2018-12-01 17:19 | PRG ---
DATE OF SERVICE: 12/01/2018 Chyna Valdovinos remains in the hospital. Placement is an enormous issue for her. She is still not ambulating. She is afebrile. Heart rate is 105, respiratory rate is 20, and oximetry is 94 on cannula. Overall, there is no significant change in her clinical condition. She is certainly stable to be either in a fpc or skilled environment. Her electrolytes are unchanged by today's lab. We will continue to follow loosely. Job ID: [id number]
[2018-12-01] MEDS: HumaLOG 300 UNITS/3 ML VIAL SC PRN ×2 (17:31→21:31)
[2018-12-01] MEDS: Melatonin 3 MG TAB PO PRN (20:34)
[2018-12-01] MEDS: Ibuprofen 600 MG TAB PO PRN (23:55)
--- NOTE | 2018-12-02 06:39 | PDOC.FM ---
- Subjective Subjective: NAEO. No breathing problems. Edema about the same. Pt sleepy in room this morning. - Objective MAR Reviewed: Yes Vital Signs & Weight: Vital Signs (12 hours) Temp Pulse Resp BP BP BP Pulse Ox 12/02/18 04:00 97.3 F L 105 H 18 93/53 L 92 L 12/02/18 00:58 104 H 22 H 96 12/02/18 00:18 98.2 F 76 18 97/63 96 12/01/18 20:34 100 12/01/18 19:49 97.5 F L 104 H 18 110/65 100 12/01/18 19:40 101 H 18 92 L Weight Admit Weight 84.246 kg Weight 86.228 kg Most Recent Monitor Data Heart Rate from ECG 107 NIBP 116/70 NIBP BP-Mean 85 Respiration from ECG 21 SpO2 86 I&O: 11/30/18 12/01/18 12/02/18 06:59 06:59 06:59 Intake Total 2100 2100 2030 Output Total 7225 22406 5300 Balance -5125 -7900 -3270 Result Diagrams: 12/02/18 06:58 12/02/18 14:18 Phys Exam - Physical Examination Constitutional: NAD HEENT: moist MMs Respiratory: no wheezing, clear to auscultation bilateral dec breath sounds diffusely Cardiovascular: no significant murmur, no rub tachycardic 3+ edema up to thighs b/l Neurological: non-focal, moves all 4 limbs Dx/Plan (1) Hypokalemia Code(s): E87.6 - HYPOKALEMIA Status: Acute (2) RADHA (acute kidney injury) Code(s): N17.9 - ACUTE KIDNEY FAILURE, UNSPECIFIED Status: Resolved (3) Diabetes mellitus, type II Status: Chronic Qualifiers: Diabetes mellitus intermediate designer insulin use: without intermediate designer use Chronic kidney disease stage: stage 3 (moderate) (4) CHF (congestive heart failure) Code(s): I50.9 - HEART FAILURE, UNSPECIFIED Status: Chronic Qualifiers: Heart failure type: diastolic (5) Tobacco abuse Code(s): Z72.0 - TOBACCO USE Status: Chronic (6) Sarcoidosis of lung Code(s): D86.0 - SARCOIDOSIS OF LUNG Status: Acute (7) PVD (peripheral vascular disease) with claudication Code(s): I73.9 - PERIPHERAL VASCULAR DISEASE, UNSPECIFIED Status: Chronic (8) Pulmonary hypertension Code(s): I27.2 - OTHER SECONDARY PULMONARY HYPERTENSION * DO NOT USE * Status : Chronic (9) Hyperlipidemia Code(s): E78.5 - HYPERLIPIDEMIA, UNSPECIFIED Status: Chronic Qualifiers: Hyperlipidemia type: unspecified Qualified Code(s): E78.5 - Hyperlipidemia , unspecified (10) Low blood pressure Status: Acute (11) Sinus tachycardia Code(s): R00.0 - TACHYCARDIA, UNSPECIFIED Status: Acute - Plan Plan: Volume overload - fluid restriction increased to 2400ml - -5.3L yesterday - bumex, metolazone, spironolactone Acute on Chronic hypoxic respiratory failure- resolved cont breathing tx, increased to q4 hour nebs this AM up to 6L, will follow Irregularly irregular rhythm - EKG with sinus tachycardia - Continue observing since pulse <110 - No debra blocking agent b/c BP will not tolerate VRE- resolved HAP s/p 10 days of zyvox, stopped today COPD back to baseline O2 requirements, 3L at home cont breathing tx transitioned to oral prednisone DM -stable, pt eating well. cont to monitor increase insulin prn, well controlled now Hypokalemia -2.9 this AM, will replace IV and start on daily po replacement -recheck this PM if still low, will replace with more Hypernatremia: -resolved Deconditioning: PTOT following cont pt ot appreciate cm recs Tobacco Abuse - discussed cessation Code Status: DNR/DNI VTE ppx: Heparin GI ppx: Protonix Dispo:Replace K with 40IV, start on oral replacement. Recheck K this afternoon & replace if needed. working on placement at [facility] 2/2 insurance difficulties, used of inpt days so cant go to rehab Addendum - Attending - Attending Attestation Date/Time: 12/02/18 5548 I personally evaluated the patient and discussed the management with Dr. Schulz. I agree with the History, Examination, Assessment and Plan documented above with any addition or exceptions noted below. The patient is resting. Lower extremities have now been wrapped with gunnar bandages. She remains on oxygen. Will continue diuresis. Pt is hypokalemic and we will replace potassium and give scheduled potassium BID. Repeat potassium. Pt's condition remains guarded. waiting on possible NH placement as pt does not have care at home and she is severely deconditioned.
[2018-12-02 07:32] LABS: Anion Gap 13 mmol/L (10-20); BUN (Urea Nitrogen) 38 mg/dL (9.8-20.1); Calc. Creatinine Clearance 94 mL/min (70-130); Calcium 9.3 mg/dL (7.8-10.44); Carbon Dioxide 37 mmol/L (22-29); Chloride 88 mmol/L (98-107); Estimated GFR-MDRD 63; Glucose 86 mg/dL (70-105); Sodium 136 mmol/L (136-145)
[2018-12-02 07:34] LABS: Hemoglobin 8.5 g/dL (12.0-16.0); Mean Corpuscular Hemoglobin 21.3 pg (27.0-31.0); Mean Corpuscular Volume 72.8 fL (78.0-98.0); Red Blood Cell (RBC) Count 3.99 mill/uL (4.20-5.40); White Blood Cell (WBC) Count 11.1 thou/uL (4.8-10.8)
[2018-12-02 07:38] LABS: Potassium 2.4 mmol/L (3.5-5.1)
[2018-12-02] MEDS ORDERED: Potassium Chloride 10 MEQ in Premix Bag 1 BAG IVPB SCH ×2 (08:00)
[2018-12-02 09:03] LABS: Mean Corpuscular HGB CONC 29.2 g/dL (32.0-36.0); Mean Platelet Volume 8.6 fL (7.4-10.4); Platelet Count 76 thou/uL (130-400); RBC Distribution Width 21.5 % (11.5-14.5)
[2018-12-02] MEDS: Magnesium Chloride 64 MG TAB PO SCH ×2 (10:06→20:26)
[2018-12-02] MEDS: Bumetanide 1 MG TAB PO SCH ×2 (10:06→18:04)
[2018-12-02] MEDS: predniSONE 20 MG TAB PO SCH (10:07)
[2018-12-02] MEDS: Spironolactone 25 MG TAB PO SCH (10:08)
[2018-12-02] MEDS: Enoxaparin Sodium 40 MG/0.4 ML SYRINGE SC SCH ×2 (10:18→10:42)
[2018-12-02] MEDS: Potassium Chloride 20 MEQ TAB PO SCH ×3 (10:20→18:02)
[2018-12-02] MEDS: NPH, Human Insulin Isophane 300 UNIT/3 ML VIAL SC SCH ×2 (10:43→20:27)
[2018-12-02] MEDS ORDERED: Metolazone 2.5 MG TAB PO SCH (11:00)
[2018-12-02] MEDS: Melatonin 3 MG TAB PO PRN (20:26)
[2018-12-02] MEDS: Ibuprofen 600 MG TAB PO PRN (20:26)
[2018-12-02] MEDS: HumaLOG 300 UNITS/3 ML VIAL SC PRN (20:28)
[2018-12-03] MEDS: Ibuprofen 600 MG TAB PO PRN ×2 (03:35→20:45)
[2018-12-03 08:01] LABS: Anion Gap 17 mmol/L (10-20); BUN (Urea Nitrogen) 49 mg/dL (9.8-20.1); Calc. Creatinine Clearance 77 mL/min (70-130); Calcium 9.2 mg/dL (7.8-10.44); Carbon Dioxide 35 mmol/L (22-29); Chloride 88 mmol/L (98-107); Estimated GFR-MDRD 50; Glucose 97 mg/dL (70-105); Sodium 138 mmol/L (136-145)
[2018-12-03 08:14] LABS: Potassium 2.4 mmol/L (3.5-5.1)
[2018-12-03] MEDS: Bumetanide 1 MG TAB PO SCH ×2 (08:24→16:23)
[2018-12-03] MEDS: Potassium Chloride 20 MEQ TAB PO SCH ×2 (08:25→16:23)
[2018-12-03] MEDS: Metolazone 2.5 MG TAB PO SCH (08:25)
[2018-12-03] MEDS: predniSONE 20 MG TAB PO SCH (08:25)
[2018-12-03] MEDS: Spironolactone 25 MG TAB PO SCH (08:25)
[2018-12-03] MEDS: NPH, Human Insulin Isophane 300 UNIT/3 ML VIAL SC SCH ×2 (08:26→20:45)
[2018-12-03] MEDS: Enoxaparin Sodium 40 MG/0.4 ML SYRINGE SC SCH (08:26)
[2018-12-03] MEDS ORDERED: Potassium Chloride 40 MEQ in Premix Bag 1 BAG IVPB SCH (09:00)
[2018-12-03] MEDS: Potassium Chloride 20 MEQ in Premix Bag 1 BAG IVPB SCH ×2 (09:50→14:04)
[2018-12-03] MEDS: Magnesium Chloride 64 MG TAB PO SCH ×2 (09:51→20:45)
--- NOTE | 2018-12-03 10:09 | PDOC.FM ---
- Subjective Subjective: Pulled out central line. Reports no problems with breathing, able to get to bedside commode. Urinating frequently. Improvement in lower leg swelling - Objective MAR Reviewed: Yes Vital Signs & Weight: Vital Signs (12 hours) Temp Pulse Resp BP Pulse Ox 12/03/18 07:56 98.1 F 95 17 104/70 96 12/03/18 07:07 104 H 24 H 95 12/03/18 03:40 97.8 F 97 20 101/66 95 12/02/18 23:50 97.3 F L 93 20 93/61 96 Weight Admit Weight 84.246 kg Weight 86.228 kg Most Recent Monitor Data Heart Rate from ECG 107 NIBP 116/70 NIBP BP-Mean 85 Respiration from ECG 21 SpO2 86 I&O: 12/02/18 12/03/18 12/04/18 06:59 06:59 06:59 Intake Total 2029 2702 Output Total 5300 800 Balance -3270 1902 Result Diagrams: 12/02/18 06:58 12/03/18 07:31 Phys Exam - Physical Examination Constitutional: NAD HEENT: PERRLA, moist MMs Neck: no nodes Respiratory: clear to auscultation bilateral dec breath sounds diffusely, no wheezing or crackles Cardiovascular: RRR, no significant murmur Gastrointestinal: non-tender distended 3+ edema up to lower thighs bilat. 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 use: without longwall machine operator helper use Chronic kidney disease stage: stage 3 (moderate) (4) CHF (congestive heart failure) Code(s): I50.9 - HEART FAILURE, UNSPECIFIED Status: Chronic Qualifiers: Heart failure type: diastolic (5) Tobacco abuse Code(s): Z72.0 - TOBACCO USE Status: Chronic (6) Sarcoidosis of lung Code(s): D86.0 - SARCOIDOSIS OF LUNG Status: Acute (7) PVD (peripheral vascular disease) with claudication Code(s): I73.9 - PERIPHERAL VASCULAR DISEASE, UNSPECIFIED Status: Chronic (8) Pulmonary hypertension Code(s): I27.2 - OTHER SECONDARY PULMONARY HYPERTENSION * DO NOT USE * Status : Chronic (9) Hyperlipidemia Code(s): E78.5 - HYPERLIPIDEMIA, UNSPECIFIED Status: Chronic Qualifiers: Hyperlipidemia type: unspecified Qualified Code(s): E78.5 - Hyperlipidemia , unspecified (10) Low blood pressure Status: Acute (11) Sinus tachycardia Code(s): R00.0 - TACHYCARDIA, UNSPECIFIED Status: Acute - Plan Plan: Volume overload - fluid restriction increased to 2400ml - diuresing well - bumex, metolazone, spironolactone, continue this Acute on Chronic hypoxic respiratory failure- resolved cont breathing tx, increased to q4 hour nebs this AM up to 6L, will follow Irregularly irregular rhythm - EKG with sinus tachycardia - Continue observing since pulse <110 - No debra blocking agent b/c BP will not tolerate VRE- resolved HAP s/p 10 days of zyvox, stopped today COPD back to baseline O2 requirements, 3L at home cont breathing tx transitioned to oral prednisone DM -stable, pt eating well. cont to monitor increase insulin prn, well controlled now Hypokalemia -2.9 this AM, will replace IV and start on daily po replacement -recheck this PM if still low, will replace with more Hypernatremia: -resolved Deconditioning: PTOT following cont pt ot appreciate cm recs Tobacco Abuse - discussed cessation Code Status: DNR/DNI VTE ppx: Heparin GI ppx: Protonix Dispo: HypoK- replace 80 IV K today, rpt this afternoon. Continue oral replacement. Elevated WBC at 11- no fever. Procal pending, Rpt AM CBC. Fluid overload-continue spironolactone, metolazone, bumex. Tachycardia: <110, pt asx, continue to monitor. BP-improved, in low 110s, continue to monitor. Bacteriuria- e.coli <5000 CFU. Pt asx, no tx since <100,000 CFU .Pending NH placement due to severe physical deconditioning. Addendum - Attending - Attending Attestation Date/Time: 12/03/18 8760 I personally evaluated the patient and discussed the management with Dr. Schulz. I agree with the History, Examination, Assessment and Plan documented above with any addition or exceptions noted below. The patient pulled out her central line overnight. She is feeling a little better. The patient thinks her lower extremity edema is improving which allows her to move to a bedside commode easier. Shortness of breath is mildly improved. She still because short of breath when talking. Pt is hypokalemic and will replace potassium and recheck this afternoon.
[2018-12-03] MEDS: HumaLOG 300 UNITS/3 ML VIAL SC PRN ×2 (16:23→20:46)
[2018-12-03 18:24] LABS: Potassium 3.3 mmol/L (3.5-5.1)
[2018-12-03] MEDS: Melatonin 3 MG TAB PO PRN (20:45)
[2018-12-03] MEDS ORDERED: Potassium Chloride 20 MEQ/100 ML PREMIX BAG IVPB SCH (23:45)
[2018-12-03] MEDS ORDERED: Potassium Chloride 20 MEQ in Premix Bag 1 BAG IVPB SCH (23:59)
--- NOTE | 2018-12-04 06:56 | PDOC.FM ---
- Subjective Subjective: Patient reports feeling better this AM. States her breathing is the same as yesterday. Denies NVD, fever, chest pain, abdominal pain. - Objective Vital Signs & Weight: Vital Signs (12 hours) Temp Pulse Resp BP BP Pulse Ox 12/04/18 00:00 97.8 F 103 H 20 128/76 92 L 12/03/18 20:00 97.9 F 104 H 20 112/72 97 12/03/18 19:32 108 H 18 93 L 12/03/18 19:10 98.3 F 100 20 109/59 L 94 L Weight Admit Weight 84.246 kg Weight 86.228 kg Most Recent Monitor Data Heart Rate from ECG 107 NIBP 116/70 NIBP BP-Mean 85 Respiration from ECG 21 SpO2 86 I&O: 12/02/18 12/03/18 12/04/18 06:59 06:59 06:59 Intake Total 2029 2702 2420 Output Total 5300 800 4400 Balance -3270 1901 -1979 Result Diagrams: 12/04/18 14:29 12/04/18 06:27 Phys Exam - Physical Examination Constitutional: NAD HEENT: PERRLA, moist MMs, sclera anicteric Neck: supple, full ROM Respiratory: no wheezing, no rales, no rhonchi, clear to auscultation bilateral Cardiovascular: RRR, no significant murmur, no rub Gastrointestinal: soft, non-tender, no distention, positive bowel sounds LE 2+ edema to level of the knee, multiple bullae present Neurological: moves all 4 limbs Psychiatric: normal affect, A&O x 3 Skin: no rash, normal turgor, cap refill <2 seconds Dx/Plan (1) Acute encephalopathy Code(s): G93.40 - ENCEPHALOPATHY, UNSPECIFIED Status: Acute (2) Diabetes mellitus Code(s): E11.9 - TYPE 2 DIABETES MELLITUS WITHOUT COMPLICATIONS Status: Acute (3) Low blood pressure Status: Acute (4) Severe sepsis Code(s): A41.9 - SEPSIS, UNSPECIFIED ORGANISM; R65.20 - SEVERE SEPSIS WITHOUT SEPTIC SHOCK Status: Acute (5) UTI (urinary tract infection) due to Enterococcus Code(s): N39.0 - URINARY TRACT INFECTION, SITE NOT SPECIFIED; B95.2 - ENTEROCOCCUS THE CAUSE OF DISEASES CLASSIFIED ELSEWHERE Status: Acute (6) VRE (vancomycin resistant enterococcus) culture positive Code(s): Z22.39 - CARRIER OF OTHER SPECIFIED BACTERIAL DISEASES Status: Acute (7) Hypokalemia Code(s): E87.6 - HYPOKALEMIA Status: Acute (8) COPD (chronic obstructive pulmonary disease) Status: Chronic Qualifiers: (9) Chronic pain syndrome Code(s): G89.4 - CHRONIC PAIN SYNDROME Status: Chronic (10) GERD (gastroesophageal reflux disease) Code(s): K21.9 - GASTRO-ESOPHAGEAL REFLUX DISEASE WITHOUT ESOPHAGITIS Status: Chronic (11) History of atrial flutter Code(s): Z86.79 - PERSONAL HISTORY OF OTHER DISEASES OF THE CIRCULATORY SYSTEM Status: Chronic (12) Hyperlipidemia Code(s): E78.5 - HYPERLIPIDEMIA, UNSPECIFIED Status: Chronic Qualifiers: Hyperlipidemia type: unspecified Qualified Code(s): E78.5 - Hyperlipidemia , unspecified (13) CHRIS (obstructive sleep apnea) Code(s): G47.33 - OBSTRUCTIVE SLEEP APNEA (ADULT) (PEDIATRIC) Status: Chronic (14) Tobacco abuse Code(s): Z72.0 - TOBACCO USE Status: Chronic - Plan Plan: Volume overload - Fluid restriction 1800ml - Diuresing well - Bumex, metolazone, spironolactone, continue this Acute on Chronic hypoxic respiratory failure- resolved - cont breathing tx, increased to q4 hour nebs; this AM up to 6L, will follow Irregularly irregular rhythm - EKG with sinus tachycardia - Continue observing since pulse <110 - No debra blocking agent b/c BP will not tolerate VRE- resolved - HAP s/p 10 days of zyvox, stopped / COPD - back to baseline O2 requirements, 3L at home - cont breathing tx - transitioned to oral prednisone DM - stable, pt eating well. cont to monitor - increase insulin prn, well controlled now Hypokalemia - Will continue to monitor and replace as needed - Will continue PO daily K and give IV as needed Hypernatremia - resolved Deconditioning - cont PT/OT - appreciate CM recs Tobacco Abuse - discussed cessation Code Status: DNR/DNI VTE ppx: Heparin GI ppx: Protonix Dispo: Pending NH placement due to severe physical deconditioning Addendum - Attending - Attending Attestation Date/Time: 12/04/18 1041 I personally evaluated the patient and discussed the management with Dr. Rivera. I agree with the History, Examination, Assessment and Plan documented above with any addition or exceptions noted below. The patient is still hyperkalemic. Will continue to replace potassium. Pt still has lower extremity edema with fluid filled blisters on both legs. We were able to examine legs with wound care. She needs additional diuresis. Case mgmt is helping with placement.
[2018-12-04 07:15] LABS: Anion Gap 17 mmol/L (10-20); BUN (Urea Nitrogen) 41 mg/dL (9.8-20.1); Calc. Creatinine Clearance 104 mL/min (70-130); Calcium 9.3 mg/dL (7.8-10.44); Carbon Dioxide 35 mmol/L (22-29); Chloride 88 mmol/L (98-107); Estimated GFR-MDRD 71; Glucose 101 mg/dL (70-105); Magnesium 1.9 mg/dL (1.6-2.6); Sodium 137 mmol/L (136-145)
[2018-12-04 07:28] LABS: Potassium 2.9 mmol/L (3.5-5.1)
[2018-12-04] MEDS: Metolazone 2.5 MG TAB PO SCH (08:20)
[2018-12-04] MEDS: Potassium Chloride 20 MEQ TAB PO SCH ×2 (08:21→17:14)
[2018-12-04] MEDS: predniSONE 20 MG TAB PO SCH (08:21)
[2018-12-04] MEDS: Bumetanide 1 MG TAB PO SCH ×2 (08:22→17:16)
[2018-12-04] MEDS: Spironolactone 25 MG TAB PO SCH (08:22)
[2018-12-04] MEDS: Magnesium Chloride 64 MG TAB PO SCH ×2 (08:22→20:48)
[2018-12-04] MEDS: NPH, Human Insulin Isophane 300 UNIT/3 ML VIAL SC SCH ×2 (08:23→20:49)
[2018-12-04] MEDS: Enoxaparin Sodium 40 MG/0.4 ML SYRINGE SC SCH (08:23)
--- NOTE | 2018-12-04 08:35 | PRG ---
DATE OF SERVICE: 12/01/2018 TRANSITION OF CARE NOTE SUBJECTIVE: Ms. Valdovinos is a 53-year-old female, who was originally admitted on 11/14/2018. She came into the ED and ultimately needed to be intubated secondary to a severe VRE pneumonia. She called 911 for lethargy and weakness and was found to be unresponsive on arrival by EMS. Glucose was too low to detect. They gave her some D50. She was intubated for airway protection secondary confusion in the ER. She had a lactic acid of 19 and a pH of 7.1, and WBC of 14 on [address] initial arrival[address] Dr. Hatch's note from 11/16/2018 shows a history of advanced steroid-dependent COPD. Additionally, Dr. Hatch notes ongoing tobacco use despite telling her that if she did not quit, she would within 2 years about a year ago. She has ongoing medical noncompliance. She has history of aortofemoral bypass, history of aflutter, history of fibromyalgia, history of OA, history of CHRIS. The patient was extubated on 11/23/2018. The patient ultimately decided that she wanted to be DNR/DNI and would not want to ever be intubated once again. Dr. Hatch was very chip with her and told that she has a very poor chance of further recovery and that she "likely will not live through the end of the year." So, the patient was treated for vancomycin-resistant pneumonia with 10 days of linezolid. She is now off linezolid and not on any antibiotics. The last few days, we have been working to diurese her as she had significant +3 or +4 pitting edema of the legs. We have gone over 10 L off her. Nursing report over the last 3 days period, she has not been complaining of any respiratory difficulties. She has a difficult placement issue as we are trying to find a jail to place her, but per difficult insurance and having used up all her inpatient days for the year due to many admissions, she is a very tough place and will likely be here while per Case Management. Job ID: [id number]
[2018-12-04] MEDS ORDERED: Potassium Chloride 40 MEQ in Premix Bag 1 BAG IVPB SCH (09:15)
[2018-12-04] MEDS: Potassium Chloride 20 MEQ in Premix Bag 1 BAG IVPB SCH ×2 (10:29→12:54)
[2018-12-04] MEDS: HumaLOG 300 UNITS/3 ML VIAL SC PRN ×2 (12:52→17:16)
[2018-12-04 14:44] LABS: #Basophils 0.1 thou/uL (0.0-0.2); #Eosinphils 0.1 thou/uL (0.0-0.7); #Lymphocytes 1.3 thou/uL (1.20-3.40); #Monocytes 0.3 thou/uL (0.11-0.59); #Neutrophils 8.1 thou/uL (1.40-6.50); %Basophils 0.6 % (0.0-1.0); %Eosinophils 1.1 % (0.0-10.0); %Lymphocytes 13.2 % (21.0-51.0); %Neutrophils 82.1 % (42.0-75.0); Hemoglobin 8.7 g/dL (12.0-16.0); Mean Corpuscular HGB CONC 29.6 g/dL (32.0-36.0); Mean Corpuscular Hemoglobin 21.6 pg (27.0-31.0); Mean Corpuscular Volume 73.1 fL (78.0-98.0); Mean Platelet Volume 7.8 fL (7.4-10.4); Platelet Count 58 thou/uL (130-400); White Blood Cell (WBC) Count 9.9 thou/uL (4.8-10.8)
[2018-12-04 14:54] LABS: Anisocytosis MODERATE=16-30 cells (100X) (0-5/hpf); Elliptocytes SLIGHT = 2-5 cells (100X) (0-1/hpf); Hypochromia SLIGHT = 6-15 cells (100X) (0-5/hpf); Large Platelets SLIGHT; MDiff Complete? YES; Microcytosis SLIGHT = 6-15 cells (100X) (0-5/hpf); Ovalocytes SLIGHT = 2-5 cells (100X) (0-1/hpf); Platelet Morphology Comment Appears Decreased; Poikilocytosis SLIGHT = 6-15 cells (100X) (0-5/hpf); Polychromasia SLIGHT = 2-3 cells (100X) (0-2/hpf); Tear Drops SLIGHT = 2-5 cells (100X) (0-1/hpf)
[2018-12-04 20:37] LABS: BUN (Urea Nitrogen) 37 mg/dL (9.8-20.1); Calc. Creatinine Clearance 97 mL/min (70-130); Calcium 9.9 mg/dL (7.8-10.44); Estimated GFR-MDRD 65; Glucose 130 mg/dL (70-105)
[2018-12-04 20:41] LABS: Chloride 87 mmol/L (98-107); Potassium 3.1 mmol/L (3.5-5.1); Sodium 137 mmol/L (136-145)
[2018-12-04 20:48] LABS: Anion Gap 17 mmol/L (10-20); Carbon Dioxide 36 mmol/L (22-29)
[2018-12-04] MEDS ORDERED: Potassium Chloride 40 MEQ in Sodium Chloride 0.9% 500 ML IVPB SCH (21:30)
[2018-12-04] MEDS: Ibuprofen 600 MG TAB PO PRN (22:01)
[2018-12-05 07:06] LABS: Anion Gap 15 mmol/L (10-20); BUN (Urea Nitrogen) 39 mg/dL (9.8-20.1); Calc. Creatinine Clearance 94 mL/min (70-130); Calcium 9.4 mg/dL (7.8-10.44); Carbon Dioxide 36 mmol/L (22-29); Chloride 89 mmol/L (98-107); Estimated GFR-MDRD 63; Glucose 107 mg/dL (70-105); Potassium 3.1 mmol/L (3.5-5.1); Sodium 137 mmol/L (136-145)
--- NOTE | 2018-12-05 07:24 | PDOC.FM ---
- Subjective Subjective: Patient had potassium replaced overnight, otherwise no events. Patient standing up at the sink this morning. Has been amble to ambulate from the bed to the sink /bedside commode. No other complaints/concerns. - Objective Vital Signs & Weight: Vital Signs (12 hours) Temp Pulse Resp BP BP Pulse Ox 12/05/18 06:35 113 H 22 H 97 12/05/18 04:56 97.9 F 97 18 98/65 95 12/05/18 00:35 91/58 L 12/05/18 00:00 97.7 F 95 18 97 12/04/18 20:14 107 H 18 88 L 12/04/18 20:00 97.7 F 105 H 20 113/72 88 L Weight Admit Weight 84.246 kg Weight 86.228 kg Most Recent Monitor Data Heart Rate from ECG 107 NIBP 116/70 NIBP BP-Mean 85 Respiration from ECG 21 SpO2 86 I&O: 12/04/18 12/05/18 12/06/18 06:59 06:59 06:59 Intake Total 2420 2330 Output Total 4400 1850 Balance -1980 480 Result Diagrams: 12/04/18 14:29 12/05/18 06:39 Phys Exam - Physical Examination Constitutional: NAD HEENT: PERRLA, moist MMs, sclera anicteric Neck: full ROM Respiratory: no wheezing, no rales, no rhonchi, clear to auscultation bilateral Cardiovascular: RRR, no significant murmur Gastrointestinal: soft, non-tender, no distention, positive bowel sounds Neurological: moves all 4 limbs Psychiatric: normal affect, A&O x 3 Deviation from normal: large bullae on bilatera LE and dorsum of feet Dx/Plan (1) Acute encephalopathy Code(s): G93.40 - ENCEPHALOPATHY, UNSPECIFIED Status: Acute (2) Diabetes mellitus Code(s): E11.9 - TYPE 2 DIABETES MELLITUS WITHOUT COMPLICATIONS Status: Acute (3) Low blood pressure Status: Acute (4) Severe sepsis Code(s): A41.9 - SEPSIS, UNSPECIFIED ORGANISM; R65.20 - SEVERE SEPSIS WITHOUT SEPTIC SHOCK Status: Acute (5) UTI (urinary tract infection) due to Enterococcus Code(s): N39.0 - URINARY TRACT INFECTION, SITE NOT SPECIFIED; B95.2 - ENTEROCOCCUS THE CAUSE OF DISEASES CLASSIFIED ELSEWHERE Status: Acute (6) VRE (vancomycin resistant enterococcus) culture positive Code(s): Z22.39 - CARRIER OF OTHER SPECIFIED BACTERIAL DISEASES Status: Acute (7) Hypokalemia Code(s): E87.6 - HYPOKALEMIA Status: Acute (8) COPD (chronic obstructive pulmonary disease) Status: Chronic Qualifiers: (9) Chronic pain syndrome Code(s): G89.4 - CHRONIC PAIN SYNDROME Status: Chronic (10) GERD (gastroesophageal reflux disease) Code(s): K21.9 - GASTRO-ESOPHAGEAL REFLUX DISEASE WITHOUT ESOPHAGITIS Status: Chronic (11) History of atrial flutter Code(s): Z86.79 - PERSONAL HISTORY OF OTHER DISEASES OF THE CIRCULATORY SYSTEM Status: Chronic (12) Hyperlipidemia Code(s): E78.5 - HYPERLIPIDEMIA, UNSPECIFIED Status: Chronic Qualifiers: Hyperlipidemia type: unspecified Qualified Code(s): E78.5 - Hyperlipidemia , unspecified (13) CHRIS (obstructive sleep apnea) Code(s): G47.33 - OBSTRUCTIVE SLEEP APNEA (ADULT) (PEDIATRIC) Status: Chronic (14) Tobacco abuse Code(s): Z72.0 - TOBACCO USE Status: Chronic - Plan Plan: Volume overload - Fluid restriction 1800ml - Diuresing well - Bumex, metolazone, spironolactone, continue this Acute on Chronic hypoxic respiratory failure- resolved - cont breathing tx, increased to q4 hour nebs; Pt currently satting 97% on 3L NC which is her baseline Irregularly irregular rhythm - EKG with sinus tachycardia - Continue observing since pulse <110 - No debra blocking agent b/c BP will not tolerate VRE- resolved - HAP s/p 10 days of zyvox, stopped / COPD - back to baseline O2 requirements, 3L at home - cont breathing tx - transitioned to oral prednisone DM - stable, pt eating well. cont to monitor - increase insulin prn, well controlled now Hypokalemia - Will continue to monitor and replace as needed - Will continue PO daily K and give IV as needed Hypernatremia - resolved Deconditioning - cont PT/OT - appreciate CM recs Tobacco Abuse - discussed cessation Code Status: DNR/DNI VTE ppx: Heparin GI ppx: Protonix Dispo: Pending NH placement due to severe physical deconditioning. Per case management, patient may need to go home with . Will continue to work on placement. Addendum - Attending - Attending Attestation Date/Time: 12/05/18 7054 I personally evaluated the patient and discussed the management with Dr. Rivera. I agree with the History, Examination, Assessment and Plan documented above with any addition or exceptions noted below. The patient is feeling better. She is able to speak in sentences without appearing significantly short of breath. Case mgmt is still helping with discharge planning. Pt would benefit from a skilled stay. Continue diuresis. Replace potassium.
[2018-12-05] MEDS ORDERED: Potassium Chloride 40 MEQ in Premix Bag 1 BAG IVPB SCH (07:30)
[2018-12-05] MEDS: Bumetanide 1 MG TAB PO SCH ×2 (09:52→17:01)
[2018-12-05] MEDS: Potassium Chloride 20 MEQ TAB PO SCH ×2 (09:52→17:01)
[2018-12-05] MEDS: predniSONE 20 MG TAB PO SCH (10:05)
[2018-12-05] MEDS: Metolazone 2.5 MG TAB PO SCH (10:05)
[2018-12-05] MEDS: Spironolactone 25 MG TAB PO SCH (10:05)
[2018-12-05] MEDS: NPH, Human Insulin Isophane 300 UNIT/3 ML VIAL SC SCH ×2 (10:06→20:47)
[2018-12-05] MEDS: Enoxaparin Sodium 40 MG/0.4 ML SYRINGE SC SCH ×2 (10:06→11:24)
[2018-12-05] MEDS: Magnesium Chloride 64 MG TAB PO SCH ×2 (10:06→20:47)
[2018-12-05] MEDS: Potassium Chloride 20 MEQ in Premix Bag 1 BAG IVPB SCH ×2 (10:45→11:51)
[2018-12-05] MEDS: Ibuprofen 600 MG TAB PO PRN ×2 (13:42→21:05)
[2018-12-05] MEDS: HumaLOG 300 UNITS/3 ML VIAL SC PRN ×3 (13:43→20:48)
[2018-12-06 05:52] LABS: Anion Gap 16 mmol/L (10-20); BUN (Urea Nitrogen) 42 mg/dL (9.8-20.1); Calc. Creatinine Clearance 80 mL/min (70-130); Calcium 9.1 mg/dL (7.8-10.44); Carbon Dioxide 37 mmol/L (22-29); Chloride 88 mmol/L (98-107); Estimated GFR-MDRD 52; Glucose 215 mg/dL (70-105); Sodium 138 mmol/L (136-145)
[2018-12-06 05:57] LABS: Potassium 2.8 mmol/L (3.5-5.1)
[2018-12-06] MEDS ORDERED: Potassium Chloride 10 MEQ in Premix Bag 1 BAG IVPB SCH (06:30)
--- NOTE | 2018-12-06 06:30 | PDOC.FM ---
- Subjective Subjective: NAEO. Patient resting in bed. States her breathing is stable. Patient eating breakfast this morning at the bedside. - Objective Vital Signs & Weight: Vital Signs (12 hours) Temp Pulse Resp BP Pulse Ox 12/06/18 05:55 97.7 F 104 H 16 92/62 93 L 12/06/18 02:55 104 H 16 12/05/18 20:47 93 L 12/05/18 20:45 97.7 F 104 H 16 108/55 L 93 L Weight Admit Weight 84.246 kg Weight 86.228 kg Most Recent Monitor Data Heart Rate from ECG 107 NIBP 116/70 NIBP BP-Mean 85 Respiration from ECG 21 SpO2 86 I&O: 12/04/18 12/05/18 12/06/18 06:59 06:59 06:59 Intake Total 2420 2330 2110 Output Total 4400 1850 Balance -1580 732 1033 Result Diagrams: 12/04/18 14:29 12/06/18 04:36 Phys Exam - Physical Examination Constitutional: NAD HEENT: PERRLA, moist MMs, sclera anicteric Neck: supple, full ROM Respiratory: clear to auscultation bilateral Cardiovascular: RRR, no significant murmur, no rub Gastrointestinal: soft, non-tender, no distention, positive bowel sounds 2+ edema in b/l LE Neurological: moves all 4 limbs Psychiatric: normal affect, A&O x 3 Deviation from normal: bullae formation on b/l LE, healing, mild erythema Dx/Plan (1) Acute encephalopathy Code(s): G93.40 - ENCEPHALOPATHY, UNSPECIFIED Status: Acute (2) Diabetes mellitus Code(s): E11.9 - TYPE 2 DIABETES MELLITUS WITHOUT COMPLICATIONS Status: Acute (3) Low blood pressure Status: Acute (4) Severe sepsis Code(s): A41.9 - SEPSIS, UNSPECIFIED ORGANISM; R65.20 - SEVERE SEPSIS WITHOUT SEPTIC SHOCK Status: Acute (5) UTI (urinary tract infection) due to Enterococcus Code(s): N39.0 - URINARY TRACT INFECTION, SITE NOT SPECIFIED; B95.2 - ENTEROCOCCUS THE CAUSE OF DISEASES CLASSIFIED ELSEWHERE Status: Acute (6) VRE (vancomycin resistant enterococcus) culture positive Code(s): Z22.39 - CARRIER OF OTHER SPECIFIED BACTERIAL DISEASES Status: Acute (7) Hypokalemia Code(s): E87.6 - HYPOKALEMIA Status: Acute (8) COPD (chronic obstructive pulmonary disease) Status: Chronic Qualifiers: (9) Chronic pain syndrome Code(s): G89.4 - CHRONIC PAIN SYNDROME Status: Chronic (10) GERD (gastroesophageal reflux disease) Code(s): K21.9 - GASTRO-ESOPHAGEAL REFLUX DISEASE WITHOUT ESOPHAGITIS Status: Chronic (11) History of atrial flutter Code(s): Z86.79 - PERSONAL HISTORY OF OTHER DISEASES OF THE CIRCULATORY SYSTEM Status: Chronic (12) Hyperlipidemia Code(s): E78.5 - HYPERLIPIDEMIA, UNSPECIFIED Status: Chronic Qualifiers: Hyperlipidemia type: unspecified Qualified Code(s): E78.5 - Hyperlipidemia , unspecified (13) CHRIS (obstructive sleep apnea) Code(s): G47.33 - OBSTRUCTIVE SLEEP APNEA (ADULT) (PEDIATRIC) Status: Chronic (14) Tobacco abuse Code(s): Z72.0 - TOBACCO USE Status: Chronic - Plan Plan: Volume overload - Fluid restriction 1800ml - Diuresing well - Bumex, metolazone, spironolactone, continue this Acute on Chronic hypoxic respiratory failure- resolved - cont breathing tx, increased to q4 hour nebs; Pt currently satting 97% on 3L NC which is her baseline Irregularly irregular rhythm - EKG with sinus tachycardia - Continue observing since pulse <110 - No debra blocking agent b/c BP will not tolerate VRE- resolved - HAP s/p 10 days of zyvox, stopped 4/7 COPD - back to baseline O2 requirements, 3L at home - cont breathing tx - transitioned to oral prednisone DM - stable, pt eating well. cont to monitor - increase insulin prn, well controlled now Hypokalemia - Will continue to monitor and replace as needed - Will continue PO daily K and give IV as needed Hypernatremia - resolved Deconditioning - cont PT/OT - appreciate CM recs Tobacco Abuse - discussed cessation Code Status: DNR/DNI VTE ppx: Heparin GI ppx: Protonix Dispo: Pending NH placement due to severe physical deconditioning. Per case management, patient may need to go home with . Will continue to work on placement. Addendum - Attending - Attending Attestation Date/Time: 12/06/18 [id number] I personally evaluated the patient and discussed the management with Dr. Rivera I agree with the History, Examination, Assessment and Plan documented above with any addition or exceptions noted below. Continue PT here and look into viable d/c options for continued recovery. Patient c/o burning with IV Potassium replacemnt suggest trial PO replacement alternative.
[2018-12-06] MEDS: HumaLOG 300 UNITS/3 ML VIAL SC PRN ×3 (06:39→21:01)
[2018-12-06] MEDS: Magnesium Chloride 64 MG TAB PO SCH ×2 (08:32→21:00)
[2018-12-06] MEDS: Bumetanide 1 MG TAB PO SCH ×2 (08:32→16:08)
[2018-12-06] MEDS: predniSONE 20 MG TAB PO SCH (08:34)
[2018-12-06] MEDS: Potassium Chloride 20 MEQ TAB PO SCH ×2 (08:37→16:08)
[2018-12-06] MEDS: Metolazone 2.5 MG TAB PO SCH (08:37)
[2018-12-06] MEDS: Spironolactone 25 MG TAB PO SCH (08:38)
[2018-12-06] MEDS: Potassium Chloride 20 MEQ in Premix Bag 1 BAG IVPB SCH ×2 (08:42→12:32)
[2018-12-06] MEDS: NPH, Human Insulin Isophane 300 UNIT/3 ML VIAL SC SCH ×2 (08:44→21:00)
[2018-12-06 15:29] LABS: Anion Gap 20 mmol/L (10-20); BUN (Urea Nitrogen) 46 mg/dL (9.8-20.1); Calc. Creatinine Clearance 78 mL/min (70-130); Calcium 9.4 mg/dL (7.8-10.44); Carbon Dioxide 33 mmol/L (22-29); Chloride 86 mmol/L (98-107); Estimated GFR-MDRD 51; Glucose 240 mg/dL (70-105); Potassium 3.6 mmol/L (3.5-5.1); Sodium 135 mmol/L (136-145)
[2018-12-06] MEDS: Ibuprofen 200 MG TAB PO PRN (18:26)
[2018-12-07] MEDS: Ibuprofen 200 MG TAB PO PRN ×2 (01:43→15:34)
[2018-12-07] MEDS: Melatonin 3 MG TAB PO PRN ×2 (01:43→21:13)
[2018-12-07 06:33] LABS: Anion Gap 18 mmol/L (10-20); BUN (Urea Nitrogen) 54 mg/dL (9.8-20.1); Calc. Creatinine Clearance 85 mL/min (70-130); Carbon Dioxide 33 mmol/L (22-29); Chloride 87 mmol/L (98-107); Estimated GFR-MDRD 56; Glucose 112 mg/dL (70-105); Sodium 135 mmol/L (136-145)
[2018-12-07 06:37] LABS: Potassium 2.6 mmol/L (3.5-5.1)
[2018-12-07] MEDS ORDERED: Potassium Chloride 40 MEQ in Premix Bag 1 BAG IVPB SCH (07:00)
--- NOTE | 2018-12-07 07:00 | PDOC.FM ---
- Subjective Subjective: NAEO. Patient sitting up at the bedside. No complaints or concerns. Patient has been walking more with PT. - Objective Vital Signs & Weight: Vital Signs (12 hours) Temp Pulse Resp BP Pulse Ox 12/07/18 06:52 108 H 20 95 12/07/18 00:02 111 H 20 12/06/18 20:59 94 L 12/06/18 20:00 98.1 F 111 H 20 104/66 94 L 12/06/18 19:29 102 H 20 97 Weight Admit Weight 84.246 kg Weight 86.228 kg Most Recent Monitor Data Heart Rate from ECG 107 NIBP 116/70 NIBP BP-Mean 85 Respiration from ECG 21 SpO2 86 I&O: 12/05/18 12/06/18 12/07/18 06:59 06:59 06:59 Intake Total 2330 2110 2410 Output Total 1850 Balance 480 2110 2410 Result Diagrams: 12/04/18 14:29 12/07/18 05:11 Phys Exam - Physical Examination Constitutional: NAD HEENT: PERRLA, moist MMs, sclera anicteric Neck: full ROM Respiratory: no wheezing, no rales, no rhonchi, clear to auscultation bilateral Cardiovascular: RRR Gastrointestinal: soft, non-tender, no distention, positive bowel sounds Neurological: moves all 4 limbs Psychiatric: normal affect, A&O x 3 Skin: no rash, normal turgor, cap refill <2 seconds Dx/Plan (1) Acute encephalopathy Code(s): G93.40 - ENCEPHALOPATHY, UNSPECIFIED Status: Acute (2) Diabetes mellitus Code(s): E11.9 - TYPE 2 DIABETES MELLITUS WITHOUT COMPLICATIONS Status: Acute (3) Low blood pressure Status: Acute (4) Severe sepsis Code(s): A41.9 - SEPSIS, UNSPECIFIED ORGANISM; R65.20 - SEVERE SEPSIS WITHOUT SEPTIC SHOCK Status: Acute (5) UTI (urinary tract infection) due to Enterococcus Code(s): N39.0 - URINARY TRACT INFECTION, SITE NOT SPECIFIED; B95.2 - ENTEROCOCCUS THE CAUSE OF DISEASES CLASSIFIED ELSEWHERE Status: Acute (6) VRE (vancomycin resistant enterococcus) culture positive Code(s): Z22.39 - CARRIER OF OTHER SPECIFIED BACTERIAL DISEASES Status: Acute (7) Hypokalemia Code(s): E87.6 - HYPOKALEMIA Status: Acute (8) COPD (chronic obstructive pulmonary disease) Status: Chronic Qualifiers: (9) Chronic pain syndrome Code(s): G89.4 - CHRONIC PAIN SYNDROME Status: Chronic (10) GERD (gastroesophageal reflux disease) Code(s): K21.9 - GASTRO-ESOPHAGEAL REFLUX DISEASE WITHOUT ESOPHAGITIS Status: Chronic (11) History of atrial flutter Code(s): Z86.79 - PERSONAL HISTORY OF OTHER DISEASES OF THE CIRCULATORY SYSTEM Status: Chronic (12) Hyperlipidemia Code(s): E78.5 - HYPERLIPIDEMIA, UNSPECIFIED Status: Chronic Qualifiers: Hyperlipidemia type: unspecified Qualified Code(s): E78.5 - Hyperlipidemia , unspecified (13) CHRIS (obstructive sleep apnea) Code(s): G47.33 - OBSTRUCTIVE SLEEP APNEA (ADULT) (PEDIATRIC) Status: Chronic (14) Tobacco abuse Code(s): Z72.0 - TOBACCO USE Status: Chronic - Plan Plan: Volume overload - Fluid restriction 1800ml - Diuresing well - Bumex, metolazone, spironolactone, continue this Acute on Chronic hypoxic respiratory failure- resolved - cont breathing tx, increased to q4 hour nebs; Pt currently satting 97% on 3L NC which is her baseline Irregularly irregular rhythm - EKG with sinus tachycardia - Continue observing since pulse <110 - No debra blocking agent b/c BP will not tolerate VRE- resolved - HAP s/p 10 days of zyvox, stopped 12/03 COPD - back to baseline O2 requirements, 3L at home - cont breathing tx - transitioned to oral prednisone DM - stable, pt eating well. cont to monitor - increase insulin prn, well controlled now Hypokalemia - Will continue to monitor and replace as needed - Will continue PO daily K and give IV as needed Hypernatremia - resolved Deconditioning - cont PT/OT - appreciate CM recs Tobacco Abuse - discussed cessation Code Status: DNR/DNI VTE ppx: Heparin GI ppx: Protonix Dispo: Pending NH placement due to severe physical deconditioning. Per case management, patient may need to go home with HH. Will continue to work on placement. Addendum - Attending - Attending Attestation Date/Time: 12/07/18 3086 I personally evaluated the patient and discussed the management with Dr. Rivera I agree with the History, Examination, Assessment and Plan documented above with any addition or exceptions noted below.C Continue consulting with CM for viable D/c options.
[2018-12-07] MEDS: Potassium Chloride 20 MEQ in Premix Bag 1 BAG IVPB SCH ×2 (08:29→19:30)
[2018-12-07] MEDS: Potassium Chloride 20 MEQ TAB PO SCH ×2 (08:29→17:31)
[2018-12-07] MEDS: Bumetanide 1 MG TAB PO SCH ×2 (08:29→15:33)
[2018-12-07] MEDS: predniSONE 20 MG TAB PO SCH (08:30)
[2018-12-07] MEDS: Spironolactone 25 MG TAB PO SCH (08:30)
[2018-12-07] MEDS: NPH, Human Insulin Isophane 300 UNIT/3 ML VIAL SC SCH ×2 (08:31→21:14)
[2018-12-07] MEDS: Magnesium Chloride 64 MG TAB PO SCH ×2 (08:31→21:08)
[2018-12-07] MEDS: Metolazone 2.5 MG TAB PO SCH (08:31)
[2018-12-07] MEDS ORDERED: Potassium Chloride 40 MEQ in Sodium Chloride 0.9% 500 ML IV SCH (10:30)
[2018-12-07] MEDS: HumaLOG 300 UNITS/3 ML VIAL SC PRN ×3 (12:52→21:14)
--- NOTE | 2018-12-08 06:35 | PDOC.FM ---
- Subjective Subjective: NAEO. Patient resting. Able to ambulate to bedside commode. Breathing status is stable. No issues or complaints. - Objective Vital Signs & Weight: Vital Signs (12 hours) Temp Pulse Resp BP Pulse Ox 12/08/18 06:03 99 12/08/18 06:02 102 H 12 12/07/18 21:18 97.6 F 102 H 16 103/60 99 12/07/18 20:59 99 12/07/18 19:38 110 H 16 96 Weight Admit Weight 84.246 kg Weight 86.228 kg Most Recent Monitor Data Heart Rate from ECG 107 NIBP 116/70 NIBP BP-Mean 85 Respiration from ECG 21 SpO2 86 I&O: 12/06/18 12/07/18 12/08/18 06:59 06:59 06:59 Intake Total 2110 2410 1980 Output Total 2550 Balance 2110 2410 -570 Result Diagrams: 12/04/18 14:29 12/08/18 07:33 Phys Exam - Physical Examination Constitutional: NAD HEENT: PERRLA, moist MMs, sclera anicteric Neck: full ROM Respiratory: clear to auscultation bilateral Cardiovascular: RRR, no significant murmur, no rub Gastrointestinal: positive bowel sounds Neurological: moves all 4 limbs Psychiatric: normal affect, A&O x 3 Skin: no rash, normal turgor, cap refill <2 seconds Dx/Plan (1) Acute encephalopathy Code(s): G93.40 - ENCEPHALOPATHY, UNSPECIFIED Status: Acute (2) Diabetes mellitus Code(s): E11.9 - TYPE 2 DIABETES MELLITUS WITHOUT COMPLICATIONS Status: Acute (3) Low blood pressure Status: Acute (4) Severe sepsis Code(s): A41.9 - SEPSIS, UNSPECIFIED ORGANISM; R65.20 - SEVERE SEPSIS WITHOUT SEPTIC SHOCK Status: Acute (5) UTI (urinary tract infection) due to Enterococcus Code(s): N39.0 - URINARY TRACT INFECTION, SITE NOT SPECIFIED; B95.2 - ENTEROCOCCUS THE CAUSE OF DISEASES CLASSIFIED ELSEWHERE Status: Acute (6) VRE (vancomycin resistant enterococcus) culture positive Code(s): Z22.39 - CARRIER OF OTHER SPECIFIED BACTERIAL DISEASES Status: Acute (7) Hypokalemia Code(s): E87.6 - HYPOKALEMIA Status: Acute (8) COPD (chronic obstructive pulmonary disease) Status: Chronic Qualifiers: (9) Chronic pain syndrome Code(s): G89.4 - CHRONIC PAIN SYNDROME Status: Chronic (10) GERD (gastroesophageal reflux disease) Code(s): K21.9 - GASTRO-ESOPHAGEAL REFLUX DISEASE WITHOUT ESOPHAGITIS Status: Chronic (11) History of atrial flutter Code(s): Z86.79 - PERSONAL HISTORY OF OTHER DISEASES OF THE CIRCULATORY SYSTEM Status: Chronic (12) Hyperlipidemia Code(s): E78.5 - HYPERLIPIDEMIA, UNSPECIFIED Status: Chronic Qualifiers: Hyperlipidemia type: unspecified Qualified Code(s): E78.5 - Hyperlipidemia , unspecified (13) CHRIS (obstructive sleep apnea) Code(s): G47.33 - OBSTRUCTIVE SLEEP APNEA (ADULT) (PEDIATRIC) Status: Chronic (14) Tobacco abuse Code(s): Z72.0 - TOBACCO USE Status: Chronic - Plan Plan: Volume overload - Fluid restriction 1800ml - Diuresing well - Bumex, metolazone, spironolactone, continue this Acute on Chronic hypoxic respiratory failure- resolved - cont breathing tx, increased to q4 hour nebs; Pt currently satting 97% on 3L NC which is her baseline Irregularly irregular rhythm - EKG with sinus tachycardia - Continue observing since pulse <110 - No debra blocking agent b/c BP will not tolerate VRE- resolved - HAP s/p 10 days of zyvox, stopped / COPD - back to baseline O2 requirements, 3L at home - cont breathing tx - transitioned to oral prednisone DM - stable, pt eating well. cont to monitor - increase insulin prn, well controlled now Hypokalemia - Will continue to monitor and replace as needed - Increased PO daily K, will give IV as needed Hypernatremia - resolved Deconditioning - cont PT/OT - appreciate CM recs Tobacco Abuse - discussed cessation Code Status: DNR/DNI VTE ppx: Heparin GI ppx: Protonix Dispo: Pending NH placement due to severe physical deconditioning. Per case management, patient may need to go home with HH. Will continue to work on placement. Addendum - Attending - Attending Attestation Date/Time: 12/08/18 [id number] I personally evaluated the patient and discussed the management with Dr. Rivera I agree with the History, Examination, Assessment and Plan documented above with any addition or exceptions noted below. Discussed expanding NH placement options outside local area. Patient with no mental incapacity and age(53) current barriers for NH placement. Patient reluctant but willing to expand search region for placement.
[2018-12-08] MEDS ORDERED: NPH, Human Insulin Isophane 300 UNIT/3 ML VIAL SC SCH ×2 (06:45→21:00)
[2018-12-08] MEDS: predniSONE 20 MG TAB PO SCH (07:57)
[2018-12-08] MEDS: Spironolactone 25 MG TAB PO SCH (07:57)
[2018-12-08] MEDS: Potassium Chloride 20 MEQ TAB PO SCH (07:58)
[2018-12-08] MEDS: Magnesium Chloride 64 MG TAB PO SCH (07:59)
[2018-12-08 08:34] LABS: Anion Gap 21 mmol/L (10-20); BUN (Urea Nitrogen) 53 mg/dL (9.8-20.1); Calc. Creatinine Clearance 103 mL/min (70-130); Calcium 9.3 mg/dL (7.8-10.44); Carbon Dioxide 29 mmol/L (22-29); Chloride 89 mmol/L (98-107); Estimated GFR-MDRD 70; Glucose 131 mg/dL (70-105); Sodium 136 mmol/L (136-145)
[2018-12-08 08:39] LABS: Potassium 2.6 mmol/L (3.5-5.1)
[2018-12-08 09:15] LABS: Magnesium 1.9 mg/dL (1.6-2.6); Phosphorus 4.2 mg/dL (2.3-4.7)
[2018-12-08] MEDS ORDERED: Potassium Chloride 40 MEQ in Sodium Chloride 0.9% 250 ML 250 ML IVPB SCH (09:30)
[2018-12-08] MEDS: Metolazone 2.5 MG TAB PO SCH (09:42)
[2018-12-08] MEDS: Bumetanide 1 MG TAB PO SCH ×2 (09:42→16:37)
[2018-12-08] MEDS: HumaLOG 300 UNITS/3 ML VIAL SC PRN ×2 (12:27→17:06)
[2018-12-08] MEDS ORDERED: Potassium Chloride 20 MEQ TAB PO SCH (17:00)
[2018-12-08 17:04] VITALS: BP 107/51; TEMP 98
--- NOTE | 2018-12-11 07:56 | DIS ---
DATE OF ADMISSION: 11/14/2018 DATE OF DISCHARGE: 12/08/2018 RESIDENT: Lakesha Rivera MD ADMITTING ATTENDING: Julio Bradshaw MD DISCHARGE ATTENDING: Wale Lynch MD Consults: CM, Cardiology, GI, nephrology, pulmonology, PT/OT, Wound care, palliative care Procedures: intubation 11/14/18, extubation L IJ CVC 11/14/18, R femoral Trialysis cath 11/15-11/24 Primary Dx: VRE culture positive pneumonia, UTI due to enterococcus, severe sepsis, low BP, acute encephalopathy, RADHA, acute and chronic resp failure w/ hypoxia, lactic acidosis, cor pulmonale Secondary Dx: COPD, chronic pain syndrome, GERD, hx of a flutter, HLD, CHRIS, DM, tobacco use DISCHARGE MEDICATIONS: 1. Bumex 2 mg oral twice daily before meals. 2. Motrin 600 mg oral every 8 hours as needed. 3. DuoNeb 3 mL every 4 hours as needed. 4. Magnesium 64 mg oral twice daily. 5. Melatonin 9 mg oral at bedtime as needed. 6. Metolazone 2.5 mg oral Tuesday, Tuesday, and Tuesday. 7. Humulin 8 units subcutaneous twice daily. 8. Zofran 4 mg oral every 6 hours as needed. 9. Protonix 40 mg oral daily. 10. K-Dur 80 mEq oral twice daily with meals. 11. Prednisone 30 mg oral every morning with breakfast. 12. Spironolactone 12.5 mg oral every morning with breakfast. 13. Aspirin 81 mg oral daily. 14. ProAir 2 puffs inhalation 3 times daily as needed. 15. Spiriva 18 mcg inhalation daily. 16. Victoza 1.2 mg subcutaneous daily. 17. Metformin 1000 mg oral twice daily with meals. 18. Cymbalta 30 mg oral twice daily. 19. Magnesium 400 mg oral daily. 20. Gabapentin 2 tabs oral 3 times daily. 21. Senokot 2 tabs oral twice daily as needed. 22. Protonix 40 mg oral daily. 23. Albuterol sulfate 1.25 mg nebs every 4 hours as needed. 24. Upper Tract 10/325 one tablet oral every four times as needed. 25. Digoxin 0.125 mg oral daily. 26. Lipitor 40 mg oral daily. 27. Movantik 25 mg oral daily. 28. Ondansetron 44 mg oral every 8 hours as needed. 29. Bumex 4 mg oral every morning. Discontinued medications: 1. K-Tab ER 40 mEq oral twice daily. 2. Prednisone 5 mg oral daily. HISTORY OF PRESENT ILLNESS/HOSPITAL COURSE: This is a 53 yo F w/ a PMH significant for end stage COPD on home O2 presenting to the ED via EMS intubated due to acute resp failure and AMS. The reported POC glucose was 30s in the field. An ET tube and left IJ central line were placed in the ED. The patient was given a fluid bolus, sodium bicard, meropenem and vancomycin and was sedated. The patient was satting 90% on the vent on initial exam. HR, RR, temp, and BP wnl. Patient had a WBC count of 14, Hgb of 10.5, sodium 131, K 6.1, BUn/CR 60, 3.86. LA 19.6. Transaminitis. UA pos for leuk esterase and ketones, negative nitrites, no bacteria seen. CXR revealed no acute process or infiltrates. Brain CT no acute process. Pulmonology contacted by the ED and the patient was admitted to the CCU. Nephrology consulted due to patient's RADHA. Trialysis catheter placed on 11/15 in right femoral. Gi was consulted due to the patient's transaminitis and elevated INR of 2.4. Patient was started on vitamin K. Patient was started on levophed for low BPs on 11/15/18. She was weened off of this by 11/19/18. On 11/16 she had episodes of non sustained vtach and frequent PVCs. Cardiology was consulted. Normal cardiolite in office apr 2018. No new recommendations. The patient was started on a gentle lasix drip for concern for fluid overload and elevated CVPs. Patient diuresed well. The Urine cx grew enterococcus feacalis that was hdz sensitive. Patient was being covered by meropenem and vanc. Meropenem was continued through till 11/17. Levoquin was added to the regimen to cover gram negatives on 11/20. Zyvox was then started on 11/21 due to VRE resulting on BAL culture. Patient had bronchoscopy performed 11/18 to remove large mucus plug after CXR showed RUL collapse. Over the first few days, patient continued to improved clinically, responding more. Patient was weened off sedation. She was extubated on 11/23/18. SHe was started on her home O2 of 3 L NC satting 85-95%. Pt transferred to the medical floor. Patient given steorids and breathing treatments. Patient was diuresed to euvolemia. Bumex dosage was adjusted, metolazone added as well as spironalactone. LE edema was noted during her stay. Wound care was consulted. Improvement in LE edema. PT worked with patient and her ambulating improved throughout her stay. She remains very SOB during PT. CM was consulted early on in the patient's stay to help with discharge planning as patient would greatly benefit from rehab. Prognosis is poor. Patient able to ambulate to restroom but not much beyond that. She has continued tobacco use. Minimal support at home. Discharge: stable but guarded Discharge instructions: Location: [facility] Diet: CC, fluid restrict 1800ml Activity: ad gallo, PT/OT, assist w/ walker F/u with [facility] physician within 3 days Job ID: [id number] [facility]
[2018-12-11] MEDS ORDERED: Metolazone 2.5 MG TAB PO SCH (09:00)
== END 2018-12-08 19:03 | DRG 853 ==
LOC: ERS 16:23 → CCU 20:16 → IMCU/EMU 11-24 18:34 → T4-B 11-25 14:00
PROVIDERS: ADMIT Emergency Medicine; ATTEND Emergency Medicine
PROC: 5A1955Z Respiratory Ventilation, Greater than 96 Consecutive Hours (ICD-10-PCS; principal; 2018-11-14)
PROC: 0BH17EZ Insertion of Endotracheal Airway into Trachea, Via Natural or Artificial Opening (ICD-10-PCS; 2018-11-14)
PROC: 02HV33Z Insertion of Infusion Device into Superior Vena Cava, Percutaneous Approach (ICD-10-PCS; 2018-11-14)
PROC: 3E033XZ Introduction of Vasopressor into Peripheral Vein, Percutaneous Approach (ICD-10-PCS; 2018-11-15)
PROC: 06HM33Z Insertion of Infusion Device into Right Femoral Vein, Percutaneous Approach (ICD-10-PCS; 2018-11-15)
PROC: 0WCQ8ZZ Extirpation of Matter from Respiratory Tract, Via Natural or Artificial Opening Endoscopic (ICD-10-PCS; 2018-11-18)
DX: A41.9 Sepsis, unspecified organism (principal); J96.21 Acute and chronic respiratory failure with hypoxia; J96.22 Acute and chronic respiratory failure with hypercapnia; G93.41 Metabolic encephalopathy; J15.9 Unspecified bacterial pneumonia; N17.9 Acute kidney failure, unspecified; I13.0 Hypertensive heart and chronic kidney disease with heart failure and stage 1 through stage 4 chronic kidney disease, or unspecified chronic kidney disease; I50.32 Chronic diastolic (congestive) heart failure; E87.0 Hyperosmolality and hypernatremia; N39.0 Urinary tract infection, site not specified; E87.4 Mixed disorder of acid-base balance; D68.9 Coagulation defect, unspecified; T17.890A Other foreign object in other parts of respiratory tract causing asphyxiation, initial encounter; I47.2 Ventricular tachycardia; R65.20 Severe sepsis without septic shock; E87.5 Hyperkalemia; J44.9 Chronic obstructive pulmonary disease, unspecified; E11.22 Type 2 diabetes mellitus with diabetic chronic kidney disease; N18.3 Chronic kidney disease, stage 3 (moderate); M79.7 Fibromyalgia; E78.5 Hyperlipidemia, unspecified; F17.210 Nicotine dependence, cigarettes, uncomplicated; E03.9 Hypothyroidism, unspecified; F32.9 Major depressive disorder, single episode, unspecified; E11.51 Type 2 diabetes mellitus with diabetic peripheral angiopathy without gangrene; K21.9 Gastro-esophageal reflux disease without esophagitis; I95.9 Hypotension, unspecified; G47.33 Obstructive sleep apnea (adult) (pediatric); I27.20 Pulmonary hypertension, unspecified; E11.649 Type 2 diabetes mellitus with hypoglycemia without coma; J84.115 Respiratory bronchiolitis interstitial lung disease; E87.6 Hypokalemia; E83.42 Hypomagnesemia; Z66 Do not resuscitate; E11.65 Type 2 diabetes mellitus with hyperglycemia; Z16.21 Resistance to vancomycin; I27.81 Cor pulmonale (chronic); Z99.81 Dependence on supplemental oxygen; Z88.0 Allergy status to penicillin; Z88.8 Allergy status to other drugs, medicaments and biological substances; Z79.84 Long term (current) use of oral hypoglycemic drugs; Z79.82 Long term (current) use of aspirin; Z79.52 Long term (current) use of systemic steroids; Z79.899 Other long term (current) drug therapy; Z95.820 Peripheral vascular angioplasty status with implants and grafts; X58.XXXA Exposure to other specified factors, initial encounter; Y92.230 Patient room in hospital as the place of occurrence of the external cause
CPT/HCPCS: 31500; 36415; 36416; 36556; 51702; 70450; 71045; 76700; 80048; 80053; 80076; 80162; 80202; 80306; 80307; 81001; 81003; 81015; 82140; 82330; 82553; 82803; 82805; 83605; 83735; 84100; 84145; 84443; 84484; 85025; 85027; 85384; 85610; 85730; 87040; 87045; 87046; 87070; 87077; 87081; 87086; 87186; 87324; 87449; 87899; 93005; 93010; 93970; 94002; 94003; 94640; 94660; 96365; 96366; 96368; 96375; A4353; C1752; C9113; G0365; J1250; J1642; J1644; J1650; J1720; J1815; J1885; J1940; J1956; J2020; J2185; J2270; J2704; J2765; J2920; J2930; J3010; J3370; J3430; J3475; J3480; J3490; J7050; J7070; J7512; J7620

== ENCOUNTER 2018-12-09 20:02 | Inpatient (IN) | payer OTHER ==
[2018-12-09] MEDS ORDERED: Lidocaine 1% (PF) 30 ML VIAL ONE (20:13)
[2018-12-09] MEDS ORDERED: Norepinephrine 8 MG/0.9% NS 0 ML ONE (20:22)
[2018-12-09] MEDS ORDERED: Acetaminophen 325 MG TAB ONE (21:04)
--- NOTE | 2018-12-09 21:22 | RAD ---
PORTABLE CHEST 12/09/18 PROVIDED CLINICAL HISTORY: Dyspnea. FINDINGS: Comparison is made with the study dated 11/30/18. The cardiac and mediastinal silhouette is unchanged in appearance. Chronic linear parenchymal opaciti es are redemonstrated, stable. Right IJ central line is noted, projects in the expected location of S VC. Blunting of the left costophrenic angle may reflect pleural fluid. There is no evidence for pneum othorax. IMPRESSION: 1. Cardiomegaly and prominence of the main pulmonary artery segment suggesting pulmonary hyperte nsion. 2. Stable chronic appearing parenchymal opacities. 3. Possible left pleural effusion. POS: MARY KATE
[2018-12-09 21:29] LABS: Actual Bicarbonate (HCO3a) 32.5 mEq/L (22-28); Analyzer IN Cardio ER; CO2 Tension 45.8 mmHg (35.0-45.0); Calcium, Ionized 1.03 mmol/L (1.12-1.30); Carboxyhemoglobin (COHb) 0.7 gm% (0.0-3.0); Hemoglobin (Hb) 8.1 g/dL (12.0-16.0); Potassium - ABG Lab 3.54 mmol/L (3.70-5.30); pH, Arterial 7.47 (7.35-7.45)
[2018-12-09 21:32] LABS: O2 Tension (PaO2) 32.7 mmHg (80.0-100.0)
[2018-12-09 21:33] LABS: Puncture Site RRA
[2018-12-09 21:36] LABS: Anisocytosis MODERATE=16-30 cells (100X) (0-5/hpf); Band 10 % (5-11); Elliptocytes SLIGHT = 2-5 cells (100X) (0-1/hpf); Hemoglobin 6.8 g/dL (12.0-16.0); Lymphocytes 19 % (21-51); MDiff Complete? YES; Mean Corpuscular HGB CONC 29.2 g/dL (32.0-36.0); Mean Corpuscular Hemoglobin 22.4 pg (27.0-31.0); Mean Corpuscular Volume 76.6 fL (78.0-98.0); Mean Platelet Volume 7.7 fL (7.4-10.4); Monocytes 6 % (0-10); Neutrophil 65 % (42-75); Platelet Count 121 thou/uL (130-400); Platelet Morphology Comment Appears Decreased; RBC Distribution Width 26.7 % (11.5-14.5); Red Blood Cell (RBC) Count 3.04 mill/uL (4.20-5.40); White Blood Cell (WBC) Count 12.4 thou/uL (4.8-10.8)
[2018-12-09 21:38] LABS: INR-International Normal Ratio 1.3; PTT 28.7 SEC (22.9-36.1)
--- NOTE | 2018-12-09 21:48 | PDOC.FPRHP ---
- History of Present Illness Chief Complaint: SOB History of Present Illness: 53 yo F with multiple chronic medical problems including COPD, pulmonary HTN, and right heart failure presents with SOB starting this morning. Patient was discharged yesterday after a prolonged stay in hospital including ICU admission with intubation with CHF exacerbation and VRE HAP. Pt reports she was feeling well yesterday, but awoke this AM feeling SOB and it has only worsened. Reports wheezing, dyspnea. Denies fevers/headache, CP/palpitations, abdominal pain, hematochezia, dysuria, or hematuria. She reports she has been fluid restriction , has not been able to eat since breakfast. Reports difficulty voiding 2/2 urinary retention, states she was in/out cathing. She was discharged to the [facility], reports being on her home regimen of 3L BNC. She reports they increased her O2 at the [facility]. In ED, BP 77/46, R 24, P 103, satting 94% on 4L BNC, put on Bipap. Central line placed. Pt refuses intubation, chemical and chest compression resuscitation only. Septic. EKG showed sinus tach with PACs. WBC elevated at 12.4, Hgb 6.8, 1 U PRBCs ordered. UA neg. Medications: Duoneb NS 30 ml/kg bolus Tylenol 650 1 g Vanc, 2 g cefepime - Allergies/Adverse Reactions Allergies Allergy/AdvReac Type Severity Reaction Status Date / Time adhesive Allergy Verified 11/05/18 19:53 furosemide [From Lasix] Allergy Verified 11/05/18 19:53 Penicillins Allergy Verified 11/05/18 19:53 pregabalin [From Lyrica] Allergy Verified 11/05/18 19:53 - Home Medications Medication Instructions Recorded Confirmed Type Aspirin [Ecotrin Low Strength] 81 mg PO DAILY #0 tab 02/12/16 11/14/18 Rx Albuterol Sulfate [Proair HFA] 2 puff INH TID PRN 05/10/16 11/14/18 History DULoxetine HCl [Cymbalta] 30 mg PO BID 11/11/16 11/14/18 History Liraglutide [Victoza 2-Lion] 1.2 mg SC DAILY 11/11/16 11/14/18 History Tiotropium [Spiriva Handihaler] 18 mcg INH DAILY 11/11/16 11/14/18 History metFORMIN HCl 1,000 mg PO BID-WM 11/11/16 11/14/18 History Magnesium Oxide [Magnesium] 400 mg PO DAILY 12/18/16 11/14/18 History Gabapentin 2 tab PO TID 07/25/17 11/14/18 History Sennosides/Docusate Sodium 2 tab PO BID PRN #60 tab 09/15/18 11/14/18 Rx [Senokot S] Albuterol Sulfate [Albuterol 1.25 mg NEB Q4HR PRN 10/05/18 11/14/18 History Sulfate Neb] HYDROcodone Bit/APAP 10/325 [[place]] 1 tab PO QID PRN 10/05/18 11/14/18 History Pantoprazole [Protonix] 40 mg PO DAILY 10/05/18 11/14/18 History Digoxin [Lanoxin] 0.125 mg PO DAILY #30 tab 10/06/18 11/14/18 Rx Atorvastatin Calcium [Lipitor] 40 mg PO DAILY 10/19/18 11/14/18 History Naloxegol Oxalate [Movantik] 25 mg PO DAILY 10/19/18 11/14/18 History Ondansetron [Zuplenz] 4 mg PO Q8HR PRN 10/19/18 11/14/18 History Spironolactone [Aldactone] 12.5 mg PO QAM-WM #30 tab 10/23/18 11/14/18 Rx Bumetanide [Bumex] 4 mg PO QAM #0 11/10/18 11/14/18 Rx Bumetanide [Bumex] 2 mg PO BID-AC tab 12/08/18 Rx Ibuprofen [Motrin IB] 600 mg PO Q8H PRN tab 12/08/18 Rx Ipratropium/Albuterol Sulfate 3 ml NEB Q2H PRN neb 12/08/18 Rx [DuoNeb] Ipratropium/Albuterol Sulfate 3 ml NEB [id number] neb 12/08/18 Rx [DuoNeb] Magnesium Chloride [Slow-Mag] 64 mg PO BID tab 12/08/18 Rx Melatonin 9 mg PO HS PRN tab 12/08/18 Rx Metolazone [Zaroxolyn] 2.5 mg PO MWF tab 12/08/18 Rx NPH, Human Insulin Isophane 8 unit SC BID vial 12/08/18 Rx [HumuLIN N] Ondansetron [Zofran ODT] 4 mg PO Q6H PRN tab 12/08/18 Rx Pantoprazole [Protonix] 40 mg PO DAILY tab 12/08/18 Rx Potassium Chloride [K-Dur] 80 meq PO BID-WM tab 12/08/18 Rx Spironolactone [Aldactone] 12.5 mg PO QAM-WM tab 12/08/18 Rx predniSONE 30 mg PO QAM-WM tab 12/08/18 Rx - History PMHx: COPD on 3L at [place] yesterday on discharge, atrial flutter, HTN, HLD, PVD, HFpEF, GERD, chronic pain/fibromyalgia, depression, CHRIS on CPAP, urinary retention, CKDIII, DMII, OA PSHx: B/L oophrectomy, kelly, appe, L knee sx x 2, aortobypass sx in 2017, tonsillectomy FHx:CVA, DMII Social: Came from [facility]. ~50 pack year smoking history. Smoked 1ppd. No EtOH or drug use. Last smoked 2 weeks ago before intubation. - Review of Systems General: reports: weight/appetite/sleep changes (unable to eat today). denies: fever/chills Eyes: denies: eye pain, vision changes ENT: denies: nasal congestion, rhinorrhea Respiratory: reports: shortness of breath. denies: cough, congestion Cardiovascular: reports: edema. denies: chest pain, palpitation Gastrointestinal: denies: nausea, vomiting, diarrhea, constipation, abdominal pain, GI bleeding Genitourinary: denies: dysuria, other (hematuria) Skin: reports: rashes (blisters on legs, present before discharge), lesions Musculoskeletal: reports: pain (legs) Neurological: reports: weakness. denies: numbness Psychological: reports: anxiety, depression - Vital signs BP: [85/53] HR: [98] RR: [22] Tmax: [99] Pox: [96 on BIPAP 10/ @ 32%fio2]% Wt : [81.65 kg] - Physical Exam Constitutional: awake, alert and oriented, other (Breathing heavily) HEENT: normocephalic and atraumatic, EOMI Neck: supple, no LAD Heart: other (irregularly irregular rhythm, no murmurs, rubs, or gallops. Radial pulses full and equal bilat; 2+ pitting edema of legs bilat up to knees) Lungs: other (diminished breath sounds diffusely, decreased more on right side) Abdomen: soft, non-tender, bowel sounds present, no masses/distention Musculoskeletal: normal tone, other (legs bilat tender to palpationj) Neurological: no focal deficit Skin: other (poor turgor, cap refill >2 sec; face appears pale; blisters on legs & feet bilat) Psychiatric: normal mood and affect, good judgment and insight, intact recent and remote memory FMR H&P: Results - Labs Result Diagrams: 12/10/18 07:14 12/10/18 07:14 Lab results: WBC 12.4 thou/uL (4.8-10.8) H 12/09/18 20:57 Hgb 6.8 g/dL (12.0-16.0) L 12/09/18 20:57 Hct 23.3 % (36.0-47.0) L 12/09/18 20:57 MCV 76.6 fL (78.0-98.0) L 12/09/18 20:57 Plt Count 121 thou/uL (130-400) L 12/09/18 20:57 Band Neuts % (Manual) 10 % (5-11) 12/09/18 20:57 ABG pH 7.47 (7.35-7.45) H 12/09/18 21:26 ABG pCO2 45.8 mmHg (35.0-45.0) H 12/09/18 21:26 ABG pO2 32.7 mmHg (80.0-100.0) L* 12/09/18 21:26 Lactic Acid 2.5 mmol/L (0.5-2.2) H 12/09/18 20:57 - EKG Interpretation EKG: sinus tach with PACs, RAD, QT prolonged (QTc 536 ms), T wave abnormality nonspecific - Radiology Interpretation Chest x-ray Status: image reviewed by me, report reviewed by me Additional comment: Stable Cardiomegaly, prominence main pulmonary artery Stable chronic appearing parenchymal opacities possible L pleural effusion FMR H&P: A/P - Problem List (1) Acute and chronic respiratory failure with hypoxia Current Visit: No Status: Acute Code(s): J96.21 - ACUTE AND CHRONIC RESPIRATORY FAILURE WITH HYPOXIA (2) Diabetes mellitus Current Visit: No Status: Acute Code(s): E11.9 - TYPE 2 DIABETES MELLITUS WITHOUT COMPLICATIONS (3) Low blood pressure Current Visit: No Status: Acute (4) Metabolic alkalosis with respiratory acidosis Current Visit: No Status: Acute Code(s): E87.4 - MIXED DISORDER OF ACID- BASE BALANCE (5) CHF (congestive heart failure) Current Visit: No Status: Chronic Code(s): I50.9 - HEART FAILURE, UNSPECIFIED Qualifiers: Heart failure type: diastolic (6) CKD (chronic kidney disease), stage III Current Visit: No Status: Chronic Code(s): N18.3 - CHRONIC KIDNEY DISEASE, STAGE 3 (MODERATE) (7) COPD (chronic obstructive pulmonary disease) Current Visit: No Status: Chronic Qualifiers: (8) Chronic lung disease Current Visit: No Status: Chronic Code(s): J98.4 - OTHER DISORDERS OF LUNG (9) Diabetes mellitus, type II Current Visit: No Status: Chronic Qualifiers: Diabetes mellitus 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 use: without predatory animal exterminator use Chronic kidney disease stage: stage 3 (moderate) (10) Fibromyalgia Current Visit: No Status: Chronic (11) GERD (gastroesophageal reflux disease) Current Visit: No Status: Chronic Code(s): K21.9 - GASTRO-ESOPHAGEAL REFLUX DISEASE WITHOUT ESOPHAGITIS (12) History of atrial flutter Current Visit: No Status: Chronic Code(s): Z86.79 - PERSONAL HISTORY OF OTHER DISEASES OF THE CIRCULATORY SYSTEM (13) Major depressive disorder Current Visit: No Status: Chronic Code(s): F32.9 - MAJOR DEPRESSIVE DISORDER , SINGLE EPISODE, UNSPECIFIED (14) CHRSI (obstructive sleep apnea) Current Visit: No Status: Chronic Code(s): G47.33 - OBSTRUCTIVE SLEEP APNEA (ADULT) (PEDIATRIC) (15) PVD (peripheral vascular disease) with claudication Current Visit: No Status: Chronic Code(s): I73.9 - PERIPHERAL VASCULAR DISEASE, UNSPECIFIED (16) Prolonged Q-T interval on ECG Current Visit: No Status: Chronic Code(s): R94.31 - ABNORMAL ELECTROCARDIOGRAM [ECG] [EKG] (17) Pulmonary hypertension Current Visit: No Status: Chronic Code(s): I27.2 - OTHER SECONDARY PULMONARY HYPERTENSION * DO NOT USE * (18) Tobacco abuse Current Visit: No Status: Chronic Code(s): Z72.0 - TOBACCO USE - Plan Acute on Chronic Hypoxic Respiratory Failure 2/2 End stage COPD, Pulmonary artery hypertension vs pneumonia -Increasing O2 needs, hypotensive, tachycardic, RR 24, WBC elevated - LA 2.5, cont to trend -Admit to ICU -central line in place, 30 ml/kg bolus NS given, 1 u PRBCs pending -Bipap, 32% FiO2, pt satting upper 90s -Pt refuses intubation; chemical and compression resusc only -Monitor fluid status -Continue home diuretics -daily weights, strict I/os -IVF 100 ml/hr NS -duoneb q4h [facility] -Continue vanc and cefepime Sepsis, possibly 2/2 pneumonia -Increasing O2 needs, hypotensive, tachycardic, RR 24, WBC elevated -Hx of recent VRE HAP on last admission, treated with 10 days zyvox -central line in place, 30 ml/kg bolus NS given, 1 u PRBCs pending -UA neg, U cx and blood cx pending -Continue vancomycin and cefepime ppx -Procal: pending Elevated Trop, stable -Likely demand ischemia -.047 Acute on Chronic Anemia -hgb 6.8 on admission -1 U PRBCs pending -f/u AM CBC -Iron low, consider Fe transfusion COPD -possibly in acute exacerbation -methylprednisolone BID -duonebs q4h [facility] DM2 -hyperglycemic protocol -STOP metformin, pt on insulin and victoza CHF -Rt heart failure -Daily wts -Strict I/os Wounds BLE -Wound care consulted Hx tobacco abuse -quit during ICU stay 2 wks prior, 60 PY hx Deconditioning -PT/OT consulted Prolonged QT -avoid QT prolonging meds MDD Fibromyalgia GERD Hx Aflutter CHIRS PVD -aware, continue home meds Diet: CC, fluid restrict 1800 ml/day DVT ppx: heparin Code: PRTL: Cardiac only PCP: April Dispo: Admit to ICU FMR H&P: Upper Level - Pertinent history 53 y/o F known to our service. Hx/o HFpEF, pulmonary HTN, Severe COPD. Ms Valdovinos presents from assisted living facility for not feeling well and SOB. Started this AM. Was discharged 24hrs ago. Presented hypotensive 60's/40's and requiring 4L. She requires a baseline of 3L O2 at home. Pt also found to have Hb of 6.8 and ED has ordered 1u PRBC. History limited by use of BIPAP, but she is able to not and mouth certain things. She denies additional complaints. In ED , BP did slightly respond to IVF and she is maintaining oxygen sats on BIPAP. She denies ever wanting to go onto a ventilator again and is DNI. - Pertinent findings Agree with culinary internship PE. Diminished breath sounds b/l and mild expiratory wheezes b /l. On BIPAP with vitals improving, but not requiring pressors at the moment. - Plan Date/Time: 12/09/182147 I, Blaise Rain, have evaluated this patient and agree with findings/plan as outlined by culinary internship resident. Pertinent changes/additions are listed here. Acute on Chronic Hypoxic Respiratory Failure 2/2 End stage COPD -Will continue steroids, albuterol nebulizers andhome nebulizers. BIPAP and O2 PRN for oxygenation sats >88%. ABG relatively unchanged from previous exacerbations. Will need to repeat. - Pulmonary HTN contributing as well. Pulm consult, supportive care. - Possible sepsis - Doubtful, but mild leukocytosis; will continue abx 24hr and re-evaluate. - PT is DNI (cardiac code). - Will need palliative/hospice consult. Prognosis guarded overall. Procal pending Hypovolenic shock -possibly from diuretic use. Also considering sepsis vs cardiogenic shock. Pressors as needed and monitor vitals after 1u and IVF. LA was elevated suggesting hypoperfusion. Elevated Troponin stable-Likely demand ischemia w/o chest pain or EKG changes Acute on Chronic Anemia-hgb 6.8 on admission, 1 U PRBCs pending, f/u AM CBC DM2 - SSI; Hold metformin, pt on insulin and victoza CHF-Pt is on strong pressors and do have concern for fluid overload, however hypotensive requiring IVF resuscitation currently. Closely monitor fluid status. Lasix ineffective. Wounds BLE-Wound care consulted Deconditioning-PT/OT consulted Prolonged QT-avoid QT prolonging meds and continue to monitor Addendum - Attending - Attending Attestation Please see event note dated 12/09/18 for my attestation and H&P
[2018-12-09 21:50] LABS: ALT (SGPT) 17 U/L (8-55); AST (SGOT) 21 U/L (5-34); Albumin 3.5 g/dL (3.5-5.0); Alkaline Phosphatase 76 U/L (40-150); Anion Gap 19 mmol/L (10-20); BUN (Urea Nitrogen) 59 mg/dL (9.8-20.1); Bilirubin, Total 1.8 mg/dL (0.2-1.2); CK (CPK) 64 U/L (29-168); Calc. Creatinine Clearance 0 mL/min (70-130); Calcium 8.5 mg/dL (7.8-10.44); Carbon Dioxide 32 mmol/L (22-29); Chloride 90 mmol/L (98-107); Estimated GFR-MDRD 36; Globulin 2.2 g/dL (2.4-3.5); Glucose 146 mg/dL (70-105); Potassium 3.6 mmol/L (3.5-5.1); Protein, Total 5.7 g/dL (6.0-8.3); Sodium 137 mmol/L (136-145)
[2018-12-09 22:10] LABS: Bilirubin Negative (Negative); Blood, Urine Negative (Negative); Clarity CLOUDY (Clear); Glucose, Urine (Dipstick) Negative (Negative); Leukocyte Moderate (Negative); Nitrite Negative (Negative); Protein, Urine (Dipstick) Negative (Neg-Trace)
[2018-12-09 22:11] LABS: Bacteria/HPF Rare-Few HPF (None Seen); Hyaline Casts/LPF 7-10 HYALINE CAST LPF (0-3 Hyaline); Pathc Cast-AUWi Flag 0.95 (0-2.49); RBC/HPF 0-3 HPF (0-3); Squamous Epithelial 0-3 HPF (0-3)
[2018-12-09] MEDS ORDERED: Cefepime 2 GM VIAL ONE (22:44)
--- NOTE | 2018-12-09 23:09 | PDOC.EVN ---
Event Note - Event Note Event Note: Patient seen and examined in ER from [id number]. Case discussed with Dr. Kenyatta Woodruff and Briseyda and H&P reviewed and repeated by me. Agree with A/P as documented. Patient was discharged yesterday after a prolonged hospitalization. She was an NH today and wasn't feeling well. Didn't eat or drink anything today. Started having some trouble breathing this afternoon and was transferred to ER. At the time of my exam she is A&O x [address]. HR 90s, RR 20- 24, O2 sat 88-96% on Bipap 32% O2. BP with MAP between 55-71. Lungs: poor air movement without wheeze or rhonchi. Heart: normal s1/s2 no m,g,r Ext: no c/c/e Skin: bilateral ulcerations to dorsal aspect of feet. Labs and imaging reviewed. 1) Acute on chronic hypoxic respiratory failure- confirmed that patient is DNI. Continue BIPAP and notify pulmonology. IV steroids, nebs. 2) Advanced COPD, near end stage on 2L nasal cannula at baseline 3) Hypotension- differential is volume depletion, anemia, septic shock vs cardiogenic shock from severe pulmonary hypertension (from COPD). No obvious sign of infection (stable CXR and UA and mild leukocytosis-12k and afebrile). Will treat with broad spectrum abx until blood and urine cx return. s/p 1L NS in ER and 2nd liter running now. Will give 1U PRBC and then if MAP <65 will check CVP. If CVP is >12-14 will start pressors. If CVP <12-14 will continue to bolus IVF until that level is reached. 4) Mild RADHA- will trend in am after IV fluids 5) Mild elevated lactate- trend in am. 6) Severe microcytic anemia- will transfuse to get Hgb >8. check iron studies- most likely nutritional and chronic disease secondary to prolonged hospital stay.
[2018-12-09] MEDS ORDERED: Dextrose 50% Abboject 50 ML SYRINGE SLOW IVP PRN (23:11)
[2018-12-09] MEDS ORDERED: Dextrose 5% in Water 1,000 ML IV PRN (23:11)
[2018-12-09] MEDS ORDERED: Bacteriostatic Water 30 ML VIAL FS PRN (23:14)
[2018-12-09] MEDS ORDERED: methylPREDNISolone Sod Succ/PF 125 MG/2 ML VIAL IVP SCH (23:15)
[2018-12-10 01:10] LABS: Lactic Acid 2.7 mmol/L (0.5-2.2)
[2018-12-10] MEDS ORDERED: methylPREDNISolone Sod Succ/PF 125 MG/2 ML VIAL ONE (03:10)
[2018-12-10] MEDS ORDERED: Senokot S 8.6-50 MG TAB PO PRN (04:30)
[2018-12-10] MEDS ORDERED: Melatonin 3 MG TAB PO PRN (04:30)
--- NOTE | 2018-12-10 06:57 | PDOC.FM ---
- Subjective Subjective: NAEO. Patient examined in the ED, she reports SOB and difficulty breathing. Currently on Bipap, Patient states she is unclear of what happened exactly, but that she felt SOB. Denies fever/chills. - Objective MAR Reviewed: Yes Result Diagrams: 12/10/18 07:14 12/10/18 07:14 Phys Exam - Physical Examination Constitutional: NAD HEENT: PERRLA, moist MMs, sclera anicteric Neck: full ROM Respiratory: clear to auscultation bilateral labored breathing, retractions noted tachycardic Gastrointestinal: soft, non-tender, no distention, positive bowel sounds Neurological: moves all 4 limbs Psychiatric: normal affect, A&O x 3 Skin: no rash, normal turgor, cap refill <2 seconds Dx/Plan (1) Acute and chronic respiratory failure with hypoxia Code(s): J96.21 - ACUTE AND CHRONIC RESPIRATORY FAILURE WITH HYPOXIA Status: Acute (2) Atrial flutter Code(s): I48.92 - UNSPECIFIED ATRIAL FLUTTER Status: Acute (3) CHF exacerbation Code(s): I50.9 - HEART FAILURE, UNSPECIFIED Status: Acute (4) COPD with acute exacerbation Code(s): J44.1 - CHRONIC OBSTRUCTIVE PULMONARY DISEASE W (ACUTE) EXACERBATION Status: Acute (5) Cellulitis Code(s): L03.90 - CELLULITIS, UNSPECIFIED Status: Acute Qualifiers: Site of cellulitis: trunk Site of cellulitis of trunk: abdominal wall Qualified Code(s): L03.311 - Cellulitis of abdominal wall (6) Diabetes mellitus Code(s): E11.9 - TYPE 2 DIABETES MELLITUS WITHOUT COMPLICATIONS Status: Acute (7) Sepsis Code(s): A41.9 - SEPSIS, UNSPECIFIED ORGANISM Status: Acute (8) Sinus tachycardia Code(s): R00.0 - TACHYCARDIA, UNSPECIFIED Status: Acute (9) Fibromyalgia Status: Chronic (10) GERD (gastroesophageal reflux disease) Code(s): K21.9 - GASTRO-ESOPHAGEAL REFLUX DISEASE WITHOUT ESOPHAGITIS Status: Chronic (11) Hx of past noncompliance Code(s): Z91.19 - PATIENT'S NONCOMPLIANCE W OTH MEDICAL TREATMENT AND REGIMEN Status: Chronic (12) Hyperlipidemia Code(s): E78.5 - HYPERLIPIDEMIA, UNSPECIFIED Status: Chronic Qualifiers: Hyperlipidemia type: unspecified Qualified Code(s): E78.5 - Hyperlipidemia , unspecified (13) Hypertension Code(s): I10 - ESSENTIAL (PRIMARY) HYPERTENSION Status: Chronic Qualifiers: Hypertension type: essential hypertension Qualified Code(s): I10 - Essential (primary) hypertension (14) Major depressive disorder Code(s): F32.9 - MAJOR DEPRESSIVE DISORDER, SINGLE EPISODE, UNSPECIFIED Status : Chronic (15) Nicotine dependence Code(s): F17.200 - NICOTINE DEPENDENCE, UNSPECIFIED, UNCOMPLICATED Status: Chronic (16) CHRIS (obstructive sleep apnea) Code(s): G47.33 - OBSTRUCTIVE SLEEP APNEA (ADULT) (PEDIATRIC) Status: Chronic (17) Prolonged Q-T interval on ECG Code(s): R94.31 - ABNORMAL ELECTROCARDIOGRAM [ECG] [EKG] Status: Chronic (18) Pulmonary hypertension Code(s): I27.2 - OTHER SECONDARY PULMONARY HYPERTENSION * DO NOT USE * Status : Chronic (19) Tobacco abuse Code(s): Z72.0 - TOBACCO USE Status: Chronic - Plan Plan: Acute on Chronic Hypoxic Respiratory Failure 2/2 End stage COPD, Pulmonary artery hypertension vs pneumonia - Increasing O2 needs, hypotensive, tachycardic, RR 24, WBC elevated - LA 2.5, cont to trend - central line in place, 30 ml/kg bolus NS given, 1 u PRBCs transfused - Bipap, 32% FiO2, pt satting upper 90s - Monitor fluid status - Continue home diuretics - daily weights, strict I/os - IVF 100 ml/hr NS - duoneb q4h [facility] - Continue vanc and cefepime Sepsis, possibly 2/2 pneumonia - Increasing O2 needs, hypotensive, tachycardic, RR 24, WBC elevated - Hx of recent VRE HAP on last admission, treated with 10 days zyvox - central line in place, 30 ml/kg bolus NS given, 1 u PRBCs transfused - UA neg, U cx and blood cx pending - Continue vancomycin and cefepime ppx - Procal: 0.32, an increased from 4/9 Elevated Trop, stable - Likely demand ischemia - .047 Acute on Chronic Anemia - hgb 6.8 on admission - 1 U PRBCs transfused - Hgb up to 8.5 s/p transfusion - Iron low, consider Fe transfusion - Will likely follow transfusion with lasix, will monitor for signs of fluid overload COPD - possibly in acute exacerbation - methylprednisolone BID - duonebs q4h [facility] DM2 - hyperglycemic protocol - STOP metformin, pt on insulin and victoza CHF - Rt heart failure - Daily wts - Strict I/os Wounds BLE - Wound care consulted Hx tobacco abuse - quit during ICU stay 2 wks prior, 60 PY hx Deconditioning - PT/OT consulted Prolonged QT - avoid QT prolonging meds MDD Fibromyalgia GERD Hx Aflutter CHRIS PVD -aware, continue home meds Diet: CC, fluid restrict 1800 ml/day DVT ppx: heparin Code: PRTL: Cardiac only PCP: April Dispo: pending clinical course Addendum - Attending - Attending Attestation Date/Time: 12/10/18 5552 I personally evaluated the patient and discussed the management with Dr. Rivera. I agree with the History, Examination, Assessment and Plan documented above with any addition or exceptions noted below. Lungs with slight increased air movement over last evening. Off Bipap at the time I saw her. Acute on chronic hypoxic resp failure- continue NC and have bipap available if necessary. to IMCU when bed available. COPD exac- steroids, nebs, abx. Hypotension- resolved with 1U PRBC and IVF. Continue IV abx until cx negative. Iron def anemia- s/p 1U PRBC treatment Mild RADHA on CKD stage III- continue to trend. Chronic problems of R heart failure, HTN, T2DM, fibromyalgia.
[2018-12-10 07:46] LABS: ALT (SGPT) 21 U/L (8-55); AST (SGOT) 24 U/L (5-34); Albumin 3.8 g/dL (3.5-5.0); Alkaline Phosphatase 82 U/L (40-150); Anion Gap 20 mmol/L (10-20); BUN (Urea Nitrogen) 62 mg/dL (9.8-20.1); Bilirubin, Total 2.5 mg/dL (0.2-1.2); Calc. Creatinine Clearance 49 mL/min (70-130); Calcium 8.7 mg/dL (7.8-10.44); Carbon Dioxide 29 mmol/L (22-29); Chloride 91 mmol/L (98-107); Estimated GFR-MDRD 32; Globulin 2.6 g/dL (2.4-3.5); Glucose 151 mg/dL (70-105); Potassium 3.5 mmol/L (3.5-5.1); Protein, Total 6.4 g/dL (6.0-8.3); Sodium 136 mmol/L (136-145)
[2018-12-10] MEDS ORDERED: Potassium Chloride 20 MEQ TAB PO SCH (08:00)
[2018-12-10 08:08] LABS: Hemoglobin 8.5 g/dL (12.0-16.0); Mean Corpuscular HGB CONC 30.4 g/dL (32.0-36.0); Mean Corpuscular Volume 75.5 fL (78.0-98.0); Mean Platelet Volume 9.2 fL (7.4-10.4); Platelet Count 142 thou/uL (130-400); RBC Distribution Width 25.8 % (11.5-14.5)
[2018-12-10] MEDS: Sodium Chloride 0.9% 1,000 ML IV SCH ×2 (08:52→14:15)
[2018-12-10] MEDS ORDERED: Liraglutide [Victoza 2-Pak] 1.2 MG SC SCH (09:00)
[2018-12-10] MEDS ORDERED: Spiriva 18 MCG CAP (Box of 5 Caps) INH SCH (09:00)
[2018-12-10] MEDS ORDERED: Digoxin 0.125 MG TAB ONE (09:03)
[2018-12-10] MEDS ORDERED: Aspirin Chewable 81 MG TAB ONE (09:03)
[2018-12-10] MEDS ORDERED: HumaLOG 300 UNITS/3 ML VIAL ONE (09:04)
[2018-12-10] MEDS: Digoxin 0.125 MG TAB PO SCH (09:08)
[2018-12-10] MEDS: HumaLOG 300 UNITS/3 ML VIAL SC PRN ×4 (09:12→20:53)
[2018-12-10] MEDS ORDERED: Cefepime 2 GM VIAL ONE (09:18)
[2018-12-10] MEDS ORDERED: HYDROcodone/Acetaminophen 10/325 mg Tablet ONE (09:18)
[2018-12-10] MEDS ORDERED: Sodium Chloride 0.9% 100 ML ONE (09:18)
[2018-12-10] MEDS: Cefepime 2 GM in Sodium Chloride 0.9% 100 ML IVPB SCH ×2 (09:19→20:28)
[2018-12-10] MEDS: HYDROcodone/Acetaminophen 10/325 mg Tablet PO PRN ×3 (09:20→23:56)
[2018-12-10] MEDS ORDERED: Potassium Chloride 20 MEQ TAB ONE (09:39)
[2018-12-10] MEDS: Potassium Chloride 20 MEQ TAB PO SCH ×3 (09:40→20:29)
[2018-12-10] MEDS: Bumetanide 1 MG TAB PO SCH ×2 (10:30→16:15)
[2018-12-10] MEDS: Spironolactone 25 MG TAB PO SCH (10:31)
[2018-12-10] MEDS: Gabapentin 300 MG CAP PO SCH ×3 (10:32→20:29)
[2018-12-10] MEDS: Aspirin 81 mg Enteric Coated Tablet PO SCH (10:32)
[2018-12-10] MEDS: Atorvastatin Calcium 40 MG TAB PO SCH (10:32)
[2018-12-10] MEDS: Magnesium Oxide 400 MG TAB PO SCH (10:33)
[2018-12-10] MEDS: NPH, Human Insulin Isophane 300 UNIT/3 ML VIAL SC SCH ×2 (10:35→20:30)
[2018-12-10] MEDS: Heparin 5,000 UNITS/ML VIAL SC SCH ×3 (10:55→20:29)
[2018-12-10] MEDS ORDERED: methylPREDNISolone Sod Succ/PF 125 MG/2 ML VIAL IVP SCH (20:00)
[2018-12-10] MEDS ORDERED: Vancomycin HCl 1.25 GM in Sodium Chloride 0.9% 250 ML 250 ML IVPB SCH (21:00)
[2018-12-10] MEDS ORDERED: Vancomycin HCl 1 GM in Sodium Chloride 0.9% 250 ML 300 ML IVPB SCH (23:15)
[2018-12-11 04:40] LABS: ALT (SGPT) 22 U/L (8-55); AST (SGOT) 14 U/L (5-34); Albumin 3.7 g/dL (3.5-5.0); Alkaline Phosphatase 83 U/L (40-150); Anion Gap 20 mmol/L (10-20); BUN (Urea Nitrogen) 64 mg/dL (9.8-20.1); Bilirubin, Total 2.3 mg/dL (0.2-1.2); Calc. Creatinine Clearance 50 mL/min (70-130); Calcium 8.2 mg/dL (7.8-10.44); Carbon Dioxide 26 mmol/L (22-29); Chloride 92 mmol/L (98-107); Estimated GFR-MDRD 32; Globulin 2.6 g/dL (2.4-3.5); Glucose 198 mg/dL (70-105); Potassium 4.4 mmol/L (3.5-5.1); Protein, Total 6.3 g/dL (6.0-8.3); Sodium 134 mmol/L (136-145)
[2018-12-11 05:07] LABS: #Basophils 0.1 thou/uL (0.0-0.2); #Lymphocytes 1.3 thou/uL (1.20-3.40); #Monocytes 0.3 thou/uL (0.11-0.59); #Neutrophils 8.2 thou/uL (1.40-6.50); %Basophils 0.7 % (0.0-1.0); %Eosinophils 0.2 % (0.0-10.0); %Lymphocytes 13.2 % (21.0-51.0); %Monocytes 2.9 % (0.0-10.0); %Neutrophils 83.1 % (42.0-75.0); Anisocytosis MODERATE=16-30 cells (100X) (0-5/hpf); Hemoglobin 8.3 g/dL (12.0-16.0); Hypochromia SLIGHT = 6-15 cells (100X) (0-5/hpf); MDiff Complete? YES; Mean Corpuscular HGB CONC 29.3 g/dL (32.0-36.0); Mean Corpuscular Hemoglobin 23.4 pg (27.0-31.0); Mean Corpuscular Volume 79.8 fL (78.0-98.0); Mean Platelet Volume 7.4 fL (7.4-10.4); Microcytosis SLIGHT = 6-15 cells (100X) (0-5/hpf); Platelet Count 186 thou/uL (130-400); Polychromasia SLIGHT = 2-3 cells (100X) (0-2/hpf); RBC Distribution Width 26.6 % (11.5-14.5); Red Blood Cell (RBC) Count 3.55 mill/uL (4.20-5.40); White Blood Cell (WBC) Count 9.9 thou/uL (4.8-10.8)
[2018-12-11] MEDS: HumaLOG 300 UNITS/3 ML VIAL SC PRN ×3 (05:51→16:23)
--- NOTE | 2018-12-11 06:37 | PDOC.FM ---
- Subjective Subjective: NAEO. Patient is sitting at the bedside. States she feels much better than yesterday. Patient on 3 L NC. Patient able to get through full sentences without having to stop for air. Patient endorses that she has not been able to walk due to decreased strength in extremities. Denies fever/ chills, denies dysuria. - Objective MAR Reviewed: Yes Vital Signs & Weight: Vital Signs (12 hours) Temp Pulse Resp BP Pulse Ox 12/11/18 04:00 98.0 F 99 20 108/70 93 L 12/11/18 03:30 93 L 12/11/18 00:00 97.5 F L 98 16 109/70 93 L 12/10/18 22:56 94 L 12/10/18 20:20 97 12/10/18 20:00 98.2 F 97 16 112/79 97 12/10/18 19:12 93 L 12/10/18 19:11 93 L Weight Weight 81.65 kg I&O: 12/09/18 12/10/18 12/11/18 06:59 06:59 06:59 Intake Total 1120 Output Total 550 Balance 570 Result Diagrams: 12/11/18 04:09 12/11/18 04:09 Phys Exam - Physical Examination Constitutional: NAD HEENT: PERRLA, moist MMs, sclera anicteric Neck: supple, full ROM Respiratory: clear to auscultation bilateral on 3 L NC, no labored breathing, no retractions Cardiovascular: RRR, no significant murmur, no rub Gastrointestinal: soft, non-tender, no distention, positive bowel sounds Neurological: moves all 4 limbs Psychiatric: normal affect, A&O x 3 Skin: no rash, normal turgor, cap refill <2 seconds Dx/Plan (1) Acute and chronic respiratory failure with hypoxia Code(s): J96.21 - ACUTE AND CHRONIC RESPIRATORY FAILURE WITH HYPOXIA Status: Acute (2) Atrial flutter Code(s): I48.92 - UNSPECIFIED ATRIAL FLUTTER Status: Acute (3) CHF exacerbation Code(s): I50.9 - HEART FAILURE, UNSPECIFIED Status: Acute (4) COPD with acute exacerbation Code(s): J44.1 - CHRONIC OBSTRUCTIVE PULMONARY DISEASE W (ACUTE) EXACERBATION Status: Acute (5) Cellulitis Code(s): L03.90 - CELLULITIS, UNSPECIFIED Status: Acute Qualifiers: Site of cellulitis: trunk Site of cellulitis of trunk: abdominal wall Qualified Code(s): L03.311 - Cellulitis of abdominal wall (6) Diabetes mellitus Code(s): E11.9 - TYPE 2 DIABETES MELLITUS WITHOUT COMPLICATIONS Status: Acute (7) Sepsis Code(s): A41.9 - SEPSIS, UNSPECIFIED ORGANISM Status: Acute (8) Sinus tachycardia Code(s): R00.0 - TACHYCARDIA, UNSPECIFIED Status: Acute (9) Fibromyalgia Status: Chronic (10) GERD (gastroesophageal reflux disease) Code(s): K21.9 - GASTRO-ESOPHAGEAL REFLUX DISEASE WITHOUT ESOPHAGITIS Status: Chronic (11) Hx of past noncompliance Code(s): Z91.19 - PATIENT'S NONCOMPLIANCE W OTH MEDICAL TREATMENT AND REGIMEN Status: Chronic (12) Hyperlipidemia Code(s): E78.5 - HYPERLIPIDEMIA, UNSPECIFIED Status: Chronic Qualifiers: Hyperlipidemia type: unspecified Qualified Code(s): E78.5 - Hyperlipidemia , unspecified (13) Hypertension Code(s): I10 - ESSENTIAL (PRIMARY) HYPERTENSION Status: Chronic Qualifiers: Hypertension type: essential hypertension Qualified Code(s): I10 - Essential (primary) hypertension (14) Major depressive disorder Code(s): F32.9 - MAJOR DEPRESSIVE DISORDER, SINGLE EPISODE, UNSPECIFIED Status : Chronic (15) Nicotine dependence Code(s): F17.200 - NICOTINE DEPENDENCE, UNSPECIFIED, UNCOMPLICATED Status: Chronic (16) CHRIS (obstructive sleep apnea) Code(s): G47.33 - OBSTRUCTIVE SLEEP APNEA (ADULT) (PEDIATRIC) Status: Chronic (17) Prolonged Q-T interval on ECG Code(s): R94.31 - ABNORMAL ELECTROCARDIOGRAM [ECG] [EKG] Status: Chronic (18) Pulmonary hypertension Code(s): I27.2 - OTHER SECONDARY PULMONARY HYPERTENSION * DO NOT USE * Status : Chronic (19) Tobacco abuse Code(s): Z72.0 - TOBACCO USE Status: Chronic - Plan Plan: Acute on Chronic Hypoxic Respiratory Failure 2/2 End stage COPD, Pulmonary artery hypertension vs pneumonia - Increasing O2 needs, hypotensive, tachycardic, RR 24, WBC elevated on admission - s/p central line in place, 30 ml/kg bolus NS given, 1 u PRBCs transfused - Monitor fluid status- daily weights, strict I/os - Continue home diuretics - IVF 100 ml/hr NS - duoneb q4h ENRIQUE - U cx: pos for E. Coli susceptible to cefepime; Will dc vanc and continue cefepime - Palliative care consulted Elevated Trop, stable - Likely demand ischemia - .047 RADHA - BUN/Cr: 64/1.65, bumped from previous visits - Will continue to monitor, will continue gentle mIVF - Vanc d/c'd Acute on Chronic Anemia - Hgb 6.8 on admission, s/p 1 U PRBCs transfused - Hgb up to 8.5 s/p transfusion COPD - possibly in acute exacerbation - methylprednisolone BID - duonebs q4h ENRIQUE DM2 - hyperglycemic protocol - Held metformin, pt on insulin and victoza - Increased daily insulin requirement, will continue to monitor CHF - Rt heart failure - Daily wts - Strict I/os Wounds BLE - Wound care consulted Hx tobacco abuse - quit during ICU stay 2 wks prior, 60 PY hx Deconditioning - PT/OT consulted Prolonged QT - avoid QT prolonging meds MDD Fibromyalgia GERD Hx Aflutter CHRIS PVD -aware, continue home meds Diet: CC, fluid restrict 1800 ml/day DVT ppx: heparin Code: PRTL: Cardiac only PCP: April Dispo: pending clinical course, CM consulted for discharge planning Addendum - Attending - Attending Attestation Date/Time: 12/11/18 2420 I personally evaluated the patient and discussed the management with Dr. Rivera. I agree with the History, Examination, Assessment and Plan documented above with any addition or exceptions noted below. After long discussion with patient this morning she is amenable to hospice discussion. Will proceed with this.
[2018-12-11 06:53] LABS: Magnesium 1.8 mg/dL (1.6-2.6); Phosphorus 4.8 mg/dL (2.3-4.7)
[2018-12-11] MEDS: HYDROcodone/Acetaminophen 10/325 mg Tablet PO PRN ×3 (07:10→21:07)
[2018-12-11] MEDS: Bumetanide 1 MG TAB PO SCH ×2 (07:15→16:28)
[2018-12-11] MEDS: Sodium Chloride 0.9% 1,000 ML IV SCH ×2 (07:23→16:31)
[2018-12-11] MEDS: Cefepime 2 GM in Sodium Chloride 0.9% 100 ML IVPB SCH ×2 (08:28→21:08)
[2018-12-11] MEDS: Spironolactone 25 MG TAB PO SCH (08:28)
[2018-12-11] MEDS: Gabapentin 300 MG CAP PO SCH ×3 (08:29→21:57)
[2018-12-11] MEDS: Potassium Chloride 20 MEQ TAB PO SCH ×4 (08:29→21:10)
[2018-12-11] MEDS: Digoxin 0.125 MG TAB PO SCH (08:29)
[2018-12-11] MEDS: Aspirin 81 mg Enteric Coated Tablet PO SCH (08:30)
[2018-12-11] MEDS: Atorvastatin Calcium 40 MG TAB PO SCH (08:30)
[2018-12-11] MEDS: NPH, Human Insulin Isophane 300 UNIT/3 ML VIAL SC SCH ×2 (08:30→21:09)
[2018-12-11] MEDS: Magnesium Oxide 400 MG TAB PO SCH (08:30)
[2018-12-11] MEDS: Heparin 5,000 UNITS/ML VIAL SC SCH ×3 (08:30→21:09)
[2018-12-11] MEDS: Metolazone 2.5 MG TAB PO SCH (09:58)
--- NOTE | 2018-12-11 10:09 | CON ---
DATE OF CONSULTATION: HISTORY OF PRESENT ILLNESS: The patient is a 53-year-old female with end-stage COPD, sees Dr. Hatch in office, came to the hospital after being discharged to the residential with marked shortness of breath and weakness. She was placed on noninvasive ventilation initially, wants to be transferred to the ICU, but apparently she has decided not to be intubated. In the ER, sats were 94 on 4 L, blood pressure was 77/46, respiratory rate 24. She is clearly having difficulty breathing. Lower extremity swelling, severe limitation to activity, she can barely walk even 20 feet without getting marked short of breath. She has previously been intubated. PAST MEDICAL HISTORY: Pertinent for; 1. CHF. 2. Diabetes. 3. End-stage COPD. 4. Fibromyalgia. 5. Bronchitis, apparently COPD, although end-stage lung disease. PAST SURGICAL HISTORY: 1. Tonsils. 2. Cholecystectomy. 3. Oophorectomy. 4. Appendix. 5. Left knee. 6. Lung biopsy. 7. Tubes. SOCIAL HISTORY: Alcohol none, still smokes. MEDICATIONS: List of medicine prior to discharge from the residential includes; 1. Prednisone. 2. Metformin 1000 twice daily. 3. Spiriva. 4. Aldactone 12.5. 5. Protonix. 6. Insulin. 7. Zaroxolyn 2.5 nebulizer. 8. Digoxin 0.125. 9. Cymbalta 30. 10. Bumex 2. 11. Lipitor 40. 12. Aspirin. 13. She is now on Maxipime. 14. Methylprednisolone. REVIEW OF SYSTEMS: Otherwise as noted, 10-point negative. PHYSICAL EXAMINATION: GENERAL: 2+ edema, moderate distress. VITAL SIGNS: Sats are 93% to 94% on supplemental oxygen, pulse is 80, blood pressure 130/80. CHEST: Decreased breath sounds. Prolonged expiration. No wheezing. CARDIAC: Normal S1, S2. No gallops. ABDOMEN: No mass. LABORATORY DATA: White count 9000, , platelet count normal. Creatinine 1.65. Urine is growing E. coli which is sensitive to the Maxipime that she is on. Chest x-ray as noted showed evidence of cardiomegaly, but no acute infiltrates. IMPRESSION: 1. Acute on chronic respiratory failure, chronic obstructive pulmonary disease. 2. Severe deconditioning, major anxiety. PLAN: I have added Dulera and prednisone to present regime. Continue neb treatments and notify Dr. Hatch. Consultation note 70 minutes, 50% in direct patient care. Job ID: [id number]
[2018-12-11] MEDS: Mometasone/Formoterol 120 PUFF INHALER INH SCH (18:20)
[2018-12-11] MEDS: predniSONE 20 MG TAB PO SCH (21:12)
[2018-12-12] MEDS: Sodium Chloride 0.9% 1,000 ML IV SCH (04:43)
[2018-12-12] MEDS: HYDROcodone/Acetaminophen 10/325 mg Tablet PO PRN ×2 (05:07→17:07)
[2018-12-12] MEDS: Mometasone/Formoterol 120 PUFF INHALER INH SCH ×2 (06:23→19:02)
[2018-12-12] MEDS: Bumetanide 1 MG TAB PO SCH ×2 (06:41→17:09)
--- NOTE | 2018-12-12 06:51 | PDOC.FM ---
- Subjective Subjective: NAEO. Patient resting comfortably in bed. No concerns or complaints. Patient stated that she worked with PT yesterday and that her legs felt very weak during her exercises. She states that last night she felt SOB, but that her breathing is better this morning now that she is more awake and alert. Denies cough, SOB, NVD, fever/chills. - Objective MAR Reviewed: Yes Vital Signs & Weight: Vital Signs (12 hours) Temp Pulse Resp BP Pulse Ox 12/12/18 06:26 110 H 24 H 93 L 12/12/18 06:23 110 H 24 H 92 L 12/12/18 04:00 97.7 F 101 H 16 108/67 12/12/18 02:11 16 12/12/18 00:00 97.9 F 106 H 18 107/65 91 L 12/11/18 22:03 106 H 20 12/11/18 22:00 107/65 12/11/18 21:00 100 101/63 95 12/11/18 20:29 97.5 F L 100 95/58 L Weight Admit Weight 81.647 kg Weight 77.111 kg I&O: 12/10/18 12/11/18 12/12/18 06:59 06:59 06:59 Intake Total 1940 4120 Output Total 1900 3450 Balance 40 670 Result Diagrams: 12/11/18 04:09 12/11/18 04:09 Phys Exam - Physical Examination Constitutional: NAD HEENT: PERRLA, moist MMs, sclera anicteric Neck: supple, full ROM Respiratory: clear to auscultation bilateral Cardiovascular: RRR Gastrointestinal: soft, non-tender, no distention, positive bowel sounds Neurological: moves all 4 limbs Psychiatric: normal affect, A&O x 3 Skin: no rash, normal turgor, cap refill <2 seconds Dx/Plan (1) Acute and chronic respiratory failure with hypoxia Code(s): J96.21 - ACUTE AND CHRONIC RESPIRATORY FAILURE WITH HYPOXIA Status: Acute (2) Atrial flutter Code(s): I48.92 - UNSPECIFIED ATRIAL FLUTTER Status: Acute (3) CHF exacerbation Code(s): I50.9 - HEART FAILURE, UNSPECIFIED Status: Acute (4) COPD with acute exacerbation Code(s): J44.1 - CHRONIC OBSTRUCTIVE PULMONARY DISEASE W (ACUTE) EXACERBATION Status: Acute (5) Cellulitis Code(s): L03.90 - CELLULITIS, UNSPECIFIED Status: Acute Qualifiers: Site of cellulitis: trunk Site of cellulitis of trunk: abdominal wall Qualified Code(s): L03.311 - Cellulitis of abdominal wall (6) Diabetes mellitus Code(s): E11.9 - TYPE 2 DIABETES MELLITUS WITHOUT COMPLICATIONS Status: Acute (7) Sepsis Code(s): A41.9 - SEPSIS, UNSPECIFIED ORGANISM Status: Acute (8) Sinus tachycardia Code(s): R00.0 - TACHYCARDIA, UNSPECIFIED Status: Acute (9) Fibromyalgia Status: Chronic (10) GERD (gastroesophageal reflux disease) Code(s): K21.9 - GASTRO-ESOPHAGEAL REFLUX DISEASE WITHOUT ESOPHAGITIS Status: Chronic (11) Hx of past noncompliance Code(s): Z91.19 - PATIENT'S NONCOMPLIANCE W OTH MEDICAL TREATMENT AND REGIMEN Status: Chronic (12) Hyperlipidemia Code(s): E78.5 - HYPERLIPIDEMIA, UNSPECIFIED Status: Chronic Qualifiers: Hyperlipidemia type: unspecified Qualified Code(s): E78.5 - Hyperlipidemia , unspecified (13) Hypertension Code(s): I10 - ESSENTIAL (PRIMARY) HYPERTENSION Status: Chronic Qualifiers: Hypertension type: essential hypertension Qualified Code(s): I10 - Essential (primary) hypertension (14) Major depressive disorder Code(s): F32.9 - MAJOR DEPRESSIVE DISORDER, SINGLE EPISODE, UNSPECIFIED Status : Chronic (15) Nicotine dependence Code(s): F17.200 - NICOTINE DEPENDENCE, UNSPECIFIED, UNCOMPLICATED Status: Chronic (16) CHRIS (obstructive sleep apnea) Code(s): G47.33 - OBSTRUCTIVE SLEEP APNEA (ADULT) (PEDIATRIC) Status: Chronic (17) Prolonged Q-T interval on ECG Code(s): R94.31 - ABNORMAL ELECTROCARDIOGRAM [ECG] [EKG] Status: Chronic (18) Pulmonary hypertension Code(s): I27.2 - OTHER SECONDARY PULMONARY HYPERTENSION * DO NOT USE * Status : Chronic (19) Tobacco abuse Code(s): Z72.0 - TOBACCO USE Status: Chronic - Plan Plan: Acute on Chronic Hypoxic Respiratory Failure 2/2 End stage COPD, Pulmonary artery hypertension vs pneumonia - Increasing O2 needs, hypotensive, tachycardic, RR 24, WBC elevated on admission - s/p central line in place, 30 ml/kg bolus NS given, 1 u PRBCs transfused - Pulm consulted, appreciate recs. - Monitor fluid status- daily weights, strict I/os - Continue home diuretics - duoneb q4h ENRIQUE - U cx: pos for E. Coli susceptible to cefepime; Vanc d/c'd. Patient transitioned to rocephin. - Palliative care consulted: patient has agreed to go home with home hospice. Patient is meeting / [facility] this AM Elevated Trop, stable - Likely demand ischemia - .047 RADHA - BUN/Cr: 64/1.65, bumped from previous visits - Will continue to monitor, will continue gentle mIVF - Vanc d/c'd Acute on Chronic Anemia - Hgb 6.8 on admission, s/p 1 U PRBCs transfused - Hgb up to 8.5 s/p transfusion COPD - possibly in acute exacerbation - methylprednisolone BID - duonebs q4h ENRIQUE - Dulera/steroids added by pulm, appreciate recs DM2 - hyperglycemic protocol - Held metformin, pt on insulin and victoza - Increased daily insulin requirement, will continue to monitor CHF - Rt heart failure - Daily wts - Strict I/os Wounds BLE - Wound care consulted Hx tobacco abuse - quit during ICU stay 2 wks prior, 60 PY hx Deconditioning - PT/OT consulted Prolonged QT - avoid QT prolonging meds MDD Fibromyalgia GERD Hx Aflutter CHRIS PVD -aware, continue home meds Diet: CC, fluid restrict 1800 ml/day DVT ppx: heparin Code: PRTL: Cardiac only PCP: April Dispo: pending clinical course, CM following - patient agreeable to hospice and is meeting [facility] Addendum - Attending - Attending Attestation Date/Time: 12/12/18 1862 I personally evaluated the patient and discussed the management with Dr. Rivera. I agree with the History, Examination, Assessment and Plan documented above with any addition or exceptions noted below. End stage COPD and Pulm Art HTN Severe deconditioning - home with hospice once arrangements made. Patient thinks it will be Tuesday before she can leave. D/C bagley, IVF, and change abx to oral.
[2018-12-12] MEDS: Spironolactone 25 MG TAB PO SCH (08:46)
[2018-12-12] MEDS: Magnesium Oxide 400 MG TAB PO SCH (08:47)
[2018-12-12] MEDS: Atorvastatin Calcium 40 MG TAB PO SCH (08:47)
[2018-12-12] MEDS: Potassium Chloride 20 MEQ TAB PO SCH ×4 (08:47→21:08)
[2018-12-12] MEDS: Gabapentin 300 MG CAP PO SCH ×3 (08:48→21:08)
[2018-12-12] MEDS: predniSONE 20 MG TAB PO SCH ×2 (08:48→21:08)
[2018-12-12] MEDS: Aspirin 81 mg Enteric Coated Tablet PO SCH (08:48)
[2018-12-12] MEDS: NPH, Human Insulin Isophane 300 UNIT/3 ML VIAL SC SCH (08:49)
[2018-12-12] MEDS: Digoxin 0.125 MG TAB PO SCH (08:50)
[2018-12-12] MEDS: Heparin 5,000 UNITS/ML VIAL SC SCH ×3 (08:50→21:08)
[2018-12-12] MEDS ORDERED: cefTRIAXone\\ROCEPHIN 1 GM in Sodium Chloride 0.9% 100 ML IVPB SCH (09:00)
[2018-12-12] MEDS ORDERED: NPH, Human Insulin Isophane 300 UNIT/3 ML VIAL SC SCH (09:10)
[2018-12-12] MEDS: DULoxetine 30 MG CAP PO SCH ×2 (10:16→21:07)
[2018-12-12] MEDS: HumaLOG 300 UNITS/3 ML VIAL SC PRN ×2 (14:34→17:09)
[2018-12-13] MEDS: HYDROcodone/Acetaminophen 10/325 mg Tablet PO PRN (01:24)
[2018-12-13] MEDS: Mometasone/Formoterol 120 PUFF INHALER INH SCH ×2 (06:39→19:00)
--- NOTE | 2018-12-13 06:41 | PDOC.FM ---
- Subjective Subjective: Overnight, patient had hypoglycemic episode that improved after juice. This morning, patient reports SOB worsened overnight but improved this morning. The patient sitting up at the bedside. - Objective MAR Reviewed: Yes Vital Signs & Weight: Vital Signs (12 hours) Temp Pulse Resp BP Pulse Ox 12/13/18 05:07 98.4 F 100 20 92/68 90 L 12/13/18 02:38 91 L 12/13/18 02:32 101 H 24 H 89 L 12/13/18 01:02 98.1 F 20 100/62 12/12/18 21:49 105 H 24 H 91 L 12/12/18 20:21 97.5 F L 100 18 115/73 91 L 12/12/18 18:47 100 16 90 L Weight Admit Weight 81.647 kg Weight 78.582 kg I&O: 12/11/18 12/12/18 12/13/18 06:59 06:59 06:59 Intake Total 1940 4120 2850 Output Total 1900 3450 Balance 40 670 2850 Result Diagrams: 12/13/18 15:45 12/13/18 15:45 Phys Exam - Physical Examination Constitutional: NAD HEENT: PERRLA, moist MMs, sclera anicteric Neck: full ROM Respiratory: clear to auscultation bilateral Cardiovascular: RRR, no significant murmur, no rub Gastrointestinal: soft, non-tender, positive bowel sounds +1 pitting edema to mid miranda Neurological: moves all 4 limbs Psychiatric: normal affect, A&O x 3 Skin: no rash, normal turgor, cap refill <2 seconds Dx/Plan (1) Acute and chronic respiratory failure with hypoxia Code(s): J96.21 - ACUTE AND CHRONIC RESPIRATORY FAILURE WITH HYPOXIA Status: Acute (2) Atrial flutter Code(s): I48.92 - UNSPECIFIED ATRIAL FLUTTER Status: Acute (3) CHF exacerbation Code(s): I50.9 - HEART FAILURE, UNSPECIFIED Status: Acute (4) COPD with acute exacerbation Code(s): J44.1 - CHRONIC OBSTRUCTIVE PULMONARY DISEASE W (ACUTE) EXACERBATION Status: Acute (5) Cellulitis Code(s): L03.90 - CELLULITIS, UNSPECIFIED Status: Acute Qualifiers: Site of cellulitis: trunk Site of cellulitis of trunk: abdominal wall Qualified Code(s): L03.311 - Cellulitis of abdominal wall (6) Diabetes mellitus Code(s): E11.9 - TYPE 2 DIABETES MELLITUS WITHOUT COMPLICATIONS Status: Acute (7) Sepsis Code(s): A41.9 - SEPSIS, UNSPECIFIED ORGANISM Status: Acute (8) Sinus tachycardia Code(s): R00.0 - TACHYCARDIA, UNSPECIFIED Status: Acute (9) Fibromyalgia Status: Chronic (10) GERD (gastroesophageal reflux disease) Code(s): K21.9 - GASTRO-ESOPHAGEAL REFLUX DISEASE WITHOUT ESOPHAGITIS Status: Chronic (11) Hx of past noncompliance Code(s): Z91.19 - PATIENT'S NONCOMPLIANCE W OTH MEDICAL TREATMENT AND REGIMEN Status: Chronic (12) Hyperlipidemia Code(s): E78.5 - HYPERLIPIDEMIA, UNSPECIFIED Status: Chronic Qualifiers: Hyperlipidemia type: unspecified Qualified Code(s): E78.5 - Hyperlipidemia , unspecified (13) Hypertension Code(s): I10 - ESSENTIAL (PRIMARY) HYPERTENSION Status: Chronic Qualifiers: Hypertension type: essential hypertension Qualified Code(s): I10 - Essential (primary) hypertension (14) Major depressive disorder Code(s): F32.9 - MAJOR DEPRESSIVE DISORDER, SINGLE EPISODE, UNSPECIFIED Status : Chronic (15) Nicotine dependence Code(s): F17.200 - NICOTINE DEPENDENCE, UNSPECIFIED, UNCOMPLICATED Status: Chronic (16) CHRIS (obstructive sleep apnea) Code(s): G47.33 - OBSTRUCTIVE SLEEP APNEA (ADULT) (PEDIATRIC) Status: Chronic (17) Prolonged Q-T interval on ECG Code(s): R94.31 - ABNORMAL ELECTROCARDIOGRAM [ECG] [EKG] Status: Chronic (18) Pulmonary hypertension Code(s): I27.2 - OTHER SECONDARY PULMONARY HYPERTENSION * DO NOT USE * Status : Chronic (19) Tobacco abuse Code(s): Z72.0 - TOBACCO USE Status: Chronic - Plan Plan: Acute on Chronic Hypoxic Respiratory Failure 2/2 End stage COPD, Pulmonary artery hypertension vs pneumonia - Increasing O2 needs, hypotensive, tachycardic, RR 24, WBC elevated on admission - s/p central line in place, 30 ml/kg bolus NS given, 1 u PRBCs transfused - Pulm consulted, appreciate recs. - Monitor fluid status- daily weights, strict I/os - Continue home diuretics - duoneb q4h ENRIQUE - U cx: pos for E. Coli susceptible to cefepime; Vanc d/c'd. Patient transitioned to oral abx - omnicef. - Palliative care consulted: patient has agreed to go home with home hospice- [facility]. Elevated Trop, stable - Likely demand ischemia - .047 RADHA - BUN/Cr: 64/1.65, bumped from previous visits - Will continue to monitor, will continue gentle mIVF - Vanc d/c'd Acute on Chronic Anemia - Hgb 6.8 on admission, s/p 1 U PRBCs transfused - Hgb up to 8.5 s/p transfusion COPD - possibly in acute exacerbation - methylprednisolone BID - duonebs q4h ENRIQUE - Dulera/steroids added by pulm, appreciate recs DM2 - hyperglycemic protocol - Held metformin, pt on insulin and victoza - Increased daily insulin requirement, will continue to monitor CHF - Rt heart failure - Daily wts - Strict I/os Wounds BLE - Wound care consulted Hx tobacco abuse - quit during ICU stay 2 wks prior, 60 PY hx Deconditioning - PT/OT consulted Prolonged QT - avoid QT prolonging meds MDD Fibromyalgia GERD Hx Aflutter CHRIS PVD -aware, continue home meds Diet: CC, fluid restrict 1800 ml/day DVT ppx: heparin Code: PRTL: Cardiac only PCP: April Dispo: pending clinical course, CM following - patient agreeable to hospice and is meeting w/ [facility] Addendum - Attending - Attending Attestation Date/Time: 12/13/18 7753 I personally evaluated the patient and discussed the management with Dr. Rivera I agree with the History, Examination, Assessment and Plan documented above with any addition or exceptions noted below. Long discussion today with Chyna, palliative care team and her PCP about goals of care. She is continuing to desire to pursue hospice care at home. She was concerned about respiratory distress and we explained in detail what hospice can do to help with this. Review of labwork showed an increase in Wbc but no bandemia and procal neg and afebrile. Also showed a metabolic acidosis from lactate and probable hypoglycemia. Will give a 500ml fluid bolus and give her some D5NS maintanence overnight. Have stopped her insulin. Expect d/c home on hospice tomorrow or Tuesday after equipment has been set up.
[2018-12-13] MEDS: Bumetanide 1 MG TAB PO SCH ×2 (06:45→18:35)
[2018-12-13 07:52] LABS: Anion Gap 25 mmol/L (10-20); BUN (Urea Nitrogen) 72 mg/dL (9.8-20.1); Calc. Creatinine Clearance 51 mL/min (70-130); Calcium 8.1 mg/dL (7.8-10.44); Carbon Dioxide 21 mmol/L (22-29); Chloride 91 mmol/L (98-107); Estimated GFR-MDRD 34; Glucose 60 mg/dL (70-105); Magnesium 1.9 mg/dL (1.6-2.6); Phosphorus 4.7 mg/dL (2.3-4.7); Potassium 5.5 mmol/L (3.5-5.1); Sodium 131 mmol/L (136-145)
[2018-12-13 08:02] LABS: Anisocytosis MODERATE=16-30 cells (100X) (0-5/hpf); Band 3 % (5-11); Hemoglobin 8.4 g/dL (12.0-16.0); Lymphocytes 23 % (21-51); MDiff Complete? YES; Mean Corpuscular HGB CONC 28.5 g/dL (32.0-36.0); Mean Corpuscular Hemoglobin 22.9 pg (27.0-31.0); Mean Corpuscular Volume 80.3 fL (78.0-98.0); Mean Platelet Volume 11.2 fL (7.4-10.4); Metamyelocyte 1 % (0-0); Monocytes 1 % (0-10); Myelocyte 2 % (0-0); Neutrophil 69 % (42-75); Nucleated RBC 3 % (0); Platelet Count 365 thou/uL (130-400); Platelet Morphology Comment Appears Adequate; Polychromasia MODERATE = 3-4 cells (100X) (0-2/hpf); RBC Distribution Width 28.4 % (11.5-14.5); Reactive Lymphocytes 1 % (0-10); Red Blood Cell (RBC) Count 3.67 mill/uL (4.20-5.40); White Blood Cell (WBC) Count 21.5 thou/uL (4.8-10.8)
--- NOTE | 2018-12-13 08:32 | OP ---
DATE OF PROCEDURE: 12/12/2018 PROCEDURE: Arterial Doppler. Bilateral lower extremity arterial ultrasound was performed on 12/12; on the right, femoral, popliteal, posterior tibial, and dorsalis pedis waveforms are triphasic with good peak area under the curve. The patient did not tolerate balloon cuff inflation for ankle-brachial index; on the left, femoral popliteal, posterior tibial, and dorsalis pedis waveform is biphasic with good peak area under the curve. Again, the patient did not tolerate cuff inflation at all. IMPRESSION: Inconclusive study. Arterial waveforms are fairly normal throughout. If there is significant concern over vascular insufficiency, CT angiogram may be of benefit. Job ID: [id number]
[2018-12-13] MEDS ORDERED: NPH, Human Insulin Isophane 300 UNIT/3 ML VIAL SC SCH ×2 (09:00→21:00)
[2018-12-13] MEDS: Digoxin 0.125 MG TAB PO SCH (09:02)
[2018-12-13] MEDS: Cefdinir 300 MG CAP PO SCH ×2 (09:02→21:10)
[2018-12-13] MEDS: Heparin 5,000 UNITS/ML VIAL SC SCH ×3 (09:02→21:12)
[2018-12-13] MEDS: Gabapentin 300 MG CAP PO SCH ×2 (09:02→15:03)
[2018-12-13] MEDS: Spironolactone 25 MG TAB PO SCH (09:03)
[2018-12-13] MEDS: Aspirin 81 mg Enteric Coated Tablet PO SCH (09:03)
[2018-12-13] MEDS: Atorvastatin Calcium 40 MG TAB PO SCH (09:04)
[2018-12-13] MEDS: DULoxetine 30 MG CAP PO SCH (09:04)
[2018-12-13] MEDS: predniSONE 20 MG TAB PO SCH ×2 (09:04→21:11)
[2018-12-13] MEDS: Magnesium Oxide 400 MG TAB PO SCH (09:04)
[2018-12-13] MEDS: Metolazone 2.5 MG TAB PO SCH (09:05)
[2018-12-13] MEDS: Potassium Chloride 20 MEQ TAB PO SCH (09:06)
[2018-12-13 13:47] LABS: Lactic Acid 7.3 mmol/L (0.5-2.2)
[2018-12-13] MEDS ORDERED: Potassium Chloride 20 MEQ TAB PO SCH (15:00)
[2018-12-13 16:00] LABS: #Basophils 0.1 thou/uL (0.0-0.2); #Eosinphils 0.1 thou/uL (0.0-0.7); #Lymphocytes 3.9 thou/uL (1.20-3.40); #Monocytes 1.4 thou/uL (0.11-0.59); #Neutrophils 11.7 thou/uL (1.40-6.50); %Basophils 0.3 % (0.0-1.0); %Eosinophils 0.5 % (0.0-10.0); %Lymphocytes 22.8 % (21.0-51.0); %Monocytes 8.2 % (0.0-10.0); %Neutrophils 68.2 % (42.0-75.0); Hemoglobin 8.3 g/dL (12.0-16.0); Mean Corpuscular HGB CONC 29.3 g/dL (32.0-36.0); Mean Corpuscular Hemoglobin 23.6 pg (27.0-31.0); Mean Corpuscular Volume 80.8 fL (78.0-98.0); Mean Platelet Volume 11.3 fL (7.4-10.4); Platelet Count 333 thou/uL (130-400); RBC Distribution Width 28.7 % (11.5-14.5); Red Blood Cell (RBC) Count 3.52 mill/uL (4.20-5.40); White Blood Cell (WBC) Count 17.2 thou/uL (4.8-10.8)
[2018-12-13 16:22] LABS: Anion Gap 29 mmol/L (10-20); BUN (Urea Nitrogen) 72 mg/dL (9.8-20.1); Calc. Creatinine Clearance 53 mL/min (70-130); Calcium 8.1 mg/dL (7.8-10.44); Carbon Dioxide 19 mmol/L (22-29); Chloride 88 mmol/L (98-107); Estimated GFR-MDRD 36; Lactic Acid 7.6 mmol/L (0.5-2.2); Sodium 131 mmol/L (136-145)
[2018-12-13 16:23] LABS: Glucose 48 mg/dL (70-105)
[2018-12-13 16:28] LABS: Band 10 % (5-11); Hypochromia SLIGHT = 6-15 cells (100X) (0-5/hpf); Lymphocytes 17 % (21-51); MDiff Complete? YES; Metamyelocyte 2 % (0-0); Monocytes 10 % (0-10); Myelocyte 2 % (0-0); Neutrophil 59 % (42-75); Nucleated RBC 1 % (0); Ovalocytes MODERATE= 6-15 cells (100X) (0-1/hpf); Platelet Morphology Comment Appears Adequate; Polychromasia SLIGHT = 2-3 cells (100X) (0-2/hpf)
[2018-12-13] MEDS ORDERED: Lactated Ringer's 500 ML IV SCH (18:00)
[2018-12-13] MEDS ORDERED: Sodium Chloride 0.9% 500 ML IV SCH (18:00)
[2018-12-13] MEDS ORDERED: Sodium Chloride 0.9% 500 ML IVPB ONE (20:00)
[2018-12-13] MEDS: Dextrose 5 %-0.45 % NaCl 1,000 ML IV SCH (21:09)
[2018-12-14] MEDS: Gabapentin 300 MG CAP PO SCH ×2 (00:21→09:48)
[2018-12-14] MEDS: DULoxetine 30 MG CAP PO SCH ×2 (00:21→09:48)
[2018-12-14 05:57] LABS: Anion Gap 30 mmol/L (10-20); BUN (Urea Nitrogen) 74 mg/dL (9.8-20.1); Calc. Creatinine Clearance 50 mL/min (70-130); Calcium 7.9 mg/dL (7.8-10.44); Carbon Dioxide 18 mmol/L (22-29); Chloride 87 mmol/L (98-107); Estimated GFR-MDRD 34; Potassium 4.6 mmol/L (3.5-5.1); Sodium 130 mmol/L (136-145)
[2018-12-14 06:00] LABS: Glucose 59 mg/dL (70-105); Lactic Acid 11.5 mmol/L (0.5-2.2)
--- NOTE | 2018-12-14 06:45 | PDOC.FM ---
- Subjective Subjective: Overnight, patient had hypoglycemic episodes and was given juice. This morning on exam, the patient states she feels more SOB. She also states she feels weaker than yesterday. The patient also states that her visited her last night and that it didnt go well. She states that he is sick (bipolar) and possibly going into a manic episode. She denies fever, dysuria, chills. Patient lethargic on exam. She is unable to get through a full sentence without stopping to take a break. SHe is also unable to keep her eyes open during our discussion. - Objective MAR Reviewed: Yes Vital Signs & Weight: Vital Signs (12 hours) Temp Pulse Resp BP Pulse Ox 12/14/18 05:00 88 L 12/14/18 04:00 97.5 F L 105 H 20 96/57 L 90 L 12/14/18 02:27 105 H 24 H 93 L 12/14/18 00:21 93 L 12/13/18 22:53 105 H 22 H 97/44 L 88 L 12/13/18 22:20 105 H 24 H 94 L 12/13/18 21:00 90/46 L 12/13/18 20:00 93 L 12/13/18 19:25 96/58 L 12/13/18 19:00 97.9 F 100 20 159/96 H 93 L 12/13/18 18:52 103 H 20 86 L Weight Admit Weight 81.647 kg Weight 78.582 kg I&O: 12/12/18 12/13/18 12/14/18 06:59 06:59 06:59 Intake Total 4120 2850 2730 Output Total 3450 Balance 670 2850 2730 Result Diagrams: 12/13/18 15:45 12/14/18 05:30 Phys Exam - Physical Examination Constitutional: NAD HEENT: PERRLA, moist MMs, sclera anicteric Neck: full ROM Respiratory: clear to auscultation bilateral labored breathing tachycardic Gastrointestinal: soft, positive bowel sounds pitting edema 2+ to knees in b/l LE Neurological: moves all 4 limbs Psychiatric: A&O x 3 Deviation from normal: patient letharic Skin: no rash, normal turgor Deviation from normal: cap refill > 2 sec Dx/Plan (1) Acute and chronic respiratory failure with hypoxia Code(s): J96.21 - ACUTE AND CHRONIC RESPIRATORY FAILURE WITH HYPOXIA Status: Acute (2) Atrial flutter Code(s): I48.92 - UNSPECIFIED ATRIAL FLUTTER Status: Acute (3) CHF exacerbation Code(s): I50.9 - HEART FAILURE, UNSPECIFIED Status: Acute (4) COPD with acute exacerbation Code(s): J44.1 - CHRONIC OBSTRUCTIVE PULMONARY DISEASE W (ACUTE) EXACERBATION Status: Acute (5) Cellulitis Code(s): L03.90 - CELLULITIS, UNSPECIFIED Status: Acute Qualifiers: Site of cellulitis: trunk Site of cellulitis of trunk: abdominal wall Qualified Code(s): L03.311 - Cellulitis of abdominal wall (6) Diabetes mellitus Code(s): E11.9 - TYPE 2 DIABETES MELLITUS WITHOUT COMPLICATIONS Status: Acute (7) Sepsis Code(s): A41.9 - SEPSIS, UNSPECIFIED ORGANISM Status: Acute (8) Sinus tachycardia Code(s): R00.0 - TACHYCARDIA, UNSPECIFIED Status: Acute (9) Fibromyalgia Status: Chronic (10) GERD (gastroesophageal reflux disease) Code(s): K21.9 - GASTRO-ESOPHAGEAL REFLUX DISEASE WITHOUT ESOPHAGITIS Status: Chronic (11) Hx of past noncompliance Code(s): Z91.19 - PATIENT'S NONCOMPLIANCE W OTH MEDICAL TREATMENT AND REGIMEN Status: Chronic (12) Hyperlipidemia Code(s): E78.5 - HYPERLIPIDEMIA, UNSPECIFIED Status: Chronic Qualifiers: Hyperlipidemia type: unspecified Qualified Code(s): E78.5 - Hyperlipidemia , unspecified (13) Hypertension Code(s): I10 - ESSENTIAL (PRIMARY) HYPERTENSION Status: Chronic Qualifiers: Hypertension type: essential hypertension Qualified Code(s): I10 - Essential (primary) hypertension (14) Major depressive disorder Code(s): F32.9 - MAJOR DEPRESSIVE DISORDER, SINGLE EPISODE, UNSPECIFIED Status : Chronic (15) Nicotine dependence Code(s): F17.200 - NICOTINE DEPENDENCE, UNSPECIFIED, UNCOMPLICATED Status: Chronic (16) CHRIS (obstructive sleep apnea) Code(s): G47.33 - OBSTRUCTIVE SLEEP APNEA (ADULT) (PEDIATRIC) Status: Chronic (17) Prolonged Q-T interval on ECG Code(s): R94.31 - ABNORMAL ELECTROCARDIOGRAM [ECG] [EKG] Status: Chronic (18) Pulmonary hypertension Code(s): I27.2 - OTHER SECONDARY PULMONARY HYPERTENSION * DO NOT USE * Status : Chronic (19) Tobacco abuse Code(s): Z72.0 - TOBACCO USE Status: Chronic - Plan Plan: Acute on Chronic Hypoxic Respiratory Failure 2/2 End stage COPD, Pulmonary artery hypertension vs pneumonia - Increasing O2 needs, hypotensive, tachycardic, RR 24, WBC elevated on admission - s/p central line in place, 30 ml/kg bolus NS given, 1 u PRBCs transfused - Pulm consulted, appreciate recs. - Monitor fluid status- daily weights, strict I/os - Continue home diuretics - duoneb q4h ENRIQUE - U cx: pos for E. Coli susceptible to cefepime; Vanc d/c'd. Patient transitioned to oral abx - omnicef. - Palliative care consulted: patient has agreed to go home with home hospice- [facility]. Patient is also open to inpatient hospice if she qualifies. She states she does not feel safe going home due to physical condition and her 's mental state. Elevated Trop, stable - Likely demand ischemia - .047 Elevated Lactate - LA - increasing over the last two days, patient given fluid bolus - Pt hypoglycemic RADHA - BUN/Cr: 64/1.65, bumped from previous visits - Will continue to monitor - Vanc d/c'd Acute on Chronic Anemia - Hgb 6.8 on admission, s/p 1 U PRBCs transfused - Hgb up to 8.5 s/p transfusion COPD - possibly in acute exacerbation - methylprednisolone BID - duonebs q4h ENRIQUE - Dulera/steroids added by pulm, appreciate recs DM2 - hyperglycemic protocol - Insulin stopped due to hypoglycemia CHF - Rt heart failure - Daily wts - Strict I/os Wounds BLE - Wound care consulted Hx tobacco abuse - quit during ICU stay 2 wks prior, 60 PY hx Deconditioning - PT/OT consulted Prolonged QT - avoid QT prolonging meds MDD Fibromyalgia GERD Hx Aflutter CHRIS PVD -aware, continue home meds Diet: CC, fluid restrict 1800 ml/day DVT ppx: heparin Code: PRTL: Cardiac only PCP: April Dispo: pending clinical course, CM following - Hospice Addendum - Attending - Attending Attestation Date/Time: 12/14/18 2300 I personally evaluated the patient and discussed the management with Dr. Rivera. I agree with the History, Examination, Assessment and Plan documented above with any addition or exceptions noted below. Patient with severe derangements in labs including metabolic anion gap acidosis secondary to lactic acidosis, hypoglycemia, RADHA. Patient's bp low in 80-90s systolic. Discussed with her that despite our attempts yesterday to correct these with IVF and D5, they worsened instead of improved. Patient continues to desire comfort measures and declines aggressive interventions of bipap/ intubation. She is interested in hospice care. Will reach out to inpatient hospice and see if she qualifies for inpatient status.
[2018-12-14] MEDS: Bumetanide 1 MG TAB PO SCH ×2 (07:03→09:50)
[2018-12-14] MEDS: Mometasone/Formoterol 120 PUFF INHALER INH SCH (08:00)
[2018-12-14] MEDS: Spironolactone 25 MG TAB PO SCH (09:47)
[2018-12-14] MEDS: Atorvastatin Calcium 40 MG TAB PO SCH (09:48)
[2018-12-14] MEDS: Aspirin 81 mg Enteric Coated Tablet PO SCH (09:48)
[2018-12-14] MEDS: Digoxin 0.125 MG TAB PO SCH (09:48)
[2018-12-14] MEDS: Cefdinir 300 MG CAP PO SCH (09:48)
[2018-12-14] MEDS: Magnesium Oxide 400 MG TAB PO SCH (09:49)
[2018-12-14] MEDS: Heparin 5,000 UNITS/ML VIAL SC SCH (09:49)
[2018-12-14] MEDS: predniSONE 20 MG TAB PO SCH (09:49)
[2018-12-14] MEDS: Dextrose 5 %-0.45 % NaCl 1,000 ML IV SCH (11:48)
[2018-12-14 12:05] VITALS: BMI 26.6
[2018-12-14 13:39] VITALS: BP 90/48; TEMP 97
--- NOTE | 2018-12-15 09:20 | DIS ---
DATE OF ADMISSION: 12/09/2018 DATE OF DISCHARGE: 12/14/2018 RESIDENT: Lakesha Rivera MD. ADMITTING ATTENDING: Ramona Farias MD DISCHARGE ATTENDING: Ramona Farias MD CONSULT: Pulmonology, Case Management, PT/OT, Palliative Care, Wound Care. PROCEDURES: 1 unit PRBCs transfused. PRIMARY DIAGNOSIS: Acute on chronic hypoxic respiratory failure secondary to end-stage chronic obstructive pulmonary disease, pulmonary artery hypertension. SECONDARY DIAGNOSES: Acute on chronic anemia, chronic obstructive pulmonary disease, diabetes type 2, congestive heart failure, bilateral lower extremity wound, history of tobacco abuse, deconditioning, major depressive disorder, fibromyalgia, history of atrial flutter, obstructive sleep apnea, peripheral vascular disease. HISTORY OF PRESENT ILLNESS/HOSPITAL COURSE: This is a 53-year-old female, who presented to the emergency department from [facility] for shortness of breath. The patient was discharged less than 30 hours prior from the hospital after a prolonged hospital stay, requiring ICU care with intubation due to CHF exacerbation. The patient reports that she was feeling short of breath and that it continued to worsen, prompting her to come to the ED. The patient endorsed wheezing as well at that time. The patient denied any fevers, chills, chest pain, abdominal pain, or dysuria upon admission. The patient reported that she has been compliant with fluid restriction. The patient had increased requirement of her O2 nasal cannula at the custodial. In the emergency department, the patient had a blood pressure of 77/46, respirations 24, pulse 103, and was saturating 94% on 4 L nasal cannula. The patient was put on BiPAP. Central line placed. The patient refused intubation. The patient given DuoNeb's, normal saline, Tylenol, vancomycin, and cefepime. The patient's chest x-ray showed stable cardiomegaly with prominence of the main pulmonary artery and parenchymal opacities. The patient had a hemoglobin of 6.8 on admission and was transfused 1 unit of PRBCs. The patient had a lactic acid of 2.5 on admission. Pulmonology was consulted and recommended steroids and Dulera. The patient has been followed by for many years. The patient's urine culture was positive for E. coli, susceptible to cefepime. The patient was transitioned to Rocephin and then Omnicef. The patient remained asymptomatic. The patient did have a Moore in place due to difficulty in getting to bedside commode. Palliative Care was consulted earlier on the patient's stay. The option of going home with hospice was discussed. The patient decompensated on day 3, did not feel comfortable going home. The patient had increased O2 requirements and worsening labs. The patient's lactic acid up trended to 11.5 on day of discharge. It was felt at this time that inpatient hospice would be a better option for the patient. Inpatient hospice was agreed upon by the patient and her , and she was discharged with further care. DISPOSITION: Guarded. DISCHARGE INSTRUCTIONS: 1. Location: Inpatient hospice. 2. Diet: Regular, fluid restrict to 1800 mL. 3. Activity: Ad gallo. 4. Follow up with inpatient hospice physician. DISCHARGE MEDICATIONS: 1. Cefdinir 300 mg oral twice daily. 2. Heparin 5000 units subcutaneous three times daily. 3. Lakeside 1 tab oral 4 times daily as needed. 4. DuoNeb 3 mL nebulizer every 4 hours as needed. 5. Dulera 2 puffs inhalation twice daily. 6. Protonix 40 mg oral daily. 7. Prednisone 20 mg oral twice daily. 8. Aldactone 12.5 mg oral every morning with breakfast. 9. Bacteriostatic Water as needed. 10. Aspirin 81 mg oral daily. 11. ProAir 2 puffs inhalation three times daily as needed. 12. Spiriva 18 mcg inhalation daily. 13. Cymbalta 30 mg oral daily. 14. Magnesium 400 mg oral daily. 15. Gabapentin 2 tabs oral 3 times daily. 16. Senokot two tabs oral twice daily as needed. 17. Digoxin 0.125 mg oral daily. 18. Lipitor 40 mg oral daily. 19. Movantik 25 mg oral daily. 20. Bumex 2 mg oral twice daily before meals. 21. DuoNeb 3 mL nebulizer every 4 hours. 22. Magnesium chloride 64 mg oral twice daily. 23. Melatonin 9 mg oral at bedtime as needed. 24. Metolazone 2.5 mg oral Tuesday, Tuesday, Tuesday. 25. Protonix 40 mg oral daily. 26. Prednisone 30 mg oral every morning with breakfast. 27. Aldactone 12.5 mg oral every morning with breakfast. DISCONTINUED MEDICATIONS: 1. Metformin 1000 mg oral twice a day with meals. 2. Motrin 600 mg oral every 8 hours. 3. Humulin 8 units subcutaneous twice daily. 4. K-Dur 80 mEq oral twice daily with meals. Job ID: [id number]
== END 2018-12-14 14:10 | disposition hospice, inpatient (51) | DRG 871 ==
LOC: ERS 20:02 → ERHOLD 22:08 → SURG A 22:10
PROVIDERS: ADMIT Family Medicine; ATTEND Family Medicine
PROC: 5A09457 Assistance with Respiratory Ventilation, 24-96 Consecutive Hours, Continuous Positive Airway Pressure (ICD-10-PCS; principal; 2018-12-09)
PROC: 30233N1 Transfusion of Nonautologous Red Blood Cells into Peripheral Vein, Percutaneous Approach (ICD-10-PCS; 2018-12-09)
PROC: B44HZZZ Ultrasonography of Bilateral Lower Extremity Arteries (ICD-10-PCS; 2018-12-12)
DX: A41.9 Sepsis, unspecified organism (principal); I50.33 Acute on chronic diastolic (congestive) heart failure; J96.21 Acute and chronic respiratory failure with hypoxia; J18.9 Pneumonia, unspecified organism; R65.21 Severe sepsis with septic shock; J44.1 Chronic obstructive pulmonary disease with (acute) exacerbation; I13.0 Hypertensive heart and chronic kidney disease with heart failure and stage 1 through stage 4 chronic kidney disease, or unspecified chronic kidney disease; I24.8 Other forms of acute ischemic heart disease; N17.9 Acute kidney failure, unspecified; I48.92 Unspecified atrial flutter; L03.311 Cellulitis of abdominal wall; Z66 Do not resuscitate; N18.3 Chronic kidney disease, stage 3 (moderate); E78.5 Hyperlipidemia, unspecified; E11.22 Type 2 diabetes mellitus with diabetic chronic kidney disease; E11.51 Type 2 diabetes mellitus with diabetic peripheral angiopathy without gangrene; K21.9 Gastro-esophageal reflux disease without esophagitis; G89.29 Other chronic pain; M79.7 Fibromyalgia; F32.9 Major depressive disorder, single episode, unspecified; G47.33 Obstructive sleep apnea (adult) (pediatric); M19.90 Unspecified osteoarthritis, unspecified site; J98.4 Other disorders of lung; I45.81 Long QT syndrome; I27.29 Other secondary pulmonary hypertension; D50.9 Iron deficiency anemia, unspecified; B96.20 Unspecified Escherichia coli [E. coli] as the cause of diseases classified elsewhere; F41.9 Anxiety disorder, unspecified; E11.649 Type 2 diabetes mellitus with hypoglycemia without coma; F17.210 Nicotine dependence, cigarettes, uncomplicated; Z90.722 Acquired absence of ovaries, bilateral; Z91.048 Other nonmedicinal substance allergy status; Z88.0 Allergy status to penicillin; Z88.8 Allergy status to other drugs, medicaments and biological substances; Z91.19 Patient's noncompliance with other medical treatment and regimen; Z99.89 Dependence on other enabling machines and devices; Z90.49 Acquired absence of other specified parts of digestive tract; Z79.82 Long term (current) use of aspirin; Z79.899 Other long term (current) drug therapy; Z79.4 Long term (current) use of insulin
CPT/HCPCS: 36415; 36416; 36430; 36556; 51702; 71045; 80048; 80053; 81003; 81015; 82550; 82553; 82805; 83540; 83605; 83735; 84100; 84145; 84484; 85025; 85027; 85610; 85730; 86850; 86900; 86901; 87040; 87077; 87086; 87186; 93005; 93922; 94640; 94660; 94760; 96365; 96367; 96375; A4353; J0692; J0696; J1644; J1815; J2001; J2930; J3370; J3490; J7050; J7512; J7620; P9016